=== PATIENT | male | born 1970 | race Caucasian/White ===

== ENCOUNTER 2021-09-06 13:43 | Inpatient (IN) | payer MEDICAID, SELFPAY ==
--- NOTE | ~2021-09-06 | US_ITS ---
EXAMINATION: US VENOUS ULTRASOUND WITH DOPPLER LOWER EXTREMITY, RIGHT CLINICAL INFORMATION: Swelling COMPARISON: None TECHNIQUE: Ultrasound of the deep veins is performed from the hip to the calf with compression sonography and color and pulse Doppler assessment. Spectral analysis with color-flow imaging is performed. FINDINGS: There is normal venous compression and respiratory variation and augmented flow. The visualized common femoral vein, superficial femoral vein, profunda femoral vein, popliteal vein, and the trifurcation region shows no evidence of deep venous thrombosis. There is no significant popliteal fossa cyst. Pathologically enlarged lymph node versus lesion in the right proximal thigh. Measures 2.4 x 1.5 x 5.5 cm. If the patient's symptoms persist, followup ultrasound in 5 days 7 days might be of value to exclude proximal propagation from a non-visualized calf vein. US/US venous duplex LE RT IMPRESSION: No DVT demonstrated in the right lower extremity. Note is made of a probable pathologically enlarged lymph node in the proximal right thigh. This could be reactive but malignancy cannot be excluded.
--- NOTE | ~2021-09-06 | XR_ITS ---
EXAMINATION: XR FOOT, RIGHT CLINICAL INFORMATION: Pain no injury COMPARISON: None TECHNIQUE: AP, lateral, and oblique views of the right foot. FINDINGS: Calcification within soft tissue along the fifth digit. The underlying bone shows bony destruction of the distal fifth metatarsal toward the medial aspect and there is also a fracture of the proximal aspect of the proximal phalanx fifth digit with ill-definition of the bone here as well. XR/XR foot RT 2V IMPRESSION: Bony destruction as described involving the distal fifth metatarsal and fracture with likely associated bony destruction involving the mid to proximal aspect of the proximal phalanx adjacent to the metatarsal.. Findings highly suggestive of osteomyelitis. Correlation recommended clinically.
--- NOTE | ~2021-09-06 | US_ITS ---
EXAMINATION: COLOR-FLOW DUPLEX IMAGING OF THE BILATERAL LOWER EXTREMITY ARTERIAL SYSTEM. VELOCITY MEASUREMENTS THROUGHOUT THE FEMORAL ARTERIES. CLINICAL INFORMATION: This patient is a 51-year-old man with lower extremity pain and a clinical question of peripheral vascular disease. RIGHT FEMORAL RUNOFF VELOCITIES: The right common femoral artery peak systolic velocity is 135 cm/s. The waveform is triphasic. The right proximal profunda femoral artery peak systolic velocity is 148 cm/s. The waveform is triphasic. The right proximal superficial femoral artery peak systolic velocity is 168 cm/s. The waveform is triphasic. The right mid superficial femoral artery peak systolic velocity is 164 cm/s. The waveform is monophasic. The right distal superficial femoral artery peak systolic velocity is 169 cm/s. The waveform is monophasic. The right popliteal artery peak systolic velocity is 219 cm/s. The waveform is monophasic. The right posterior tibial artery peak systolic velocity is 254 cm/s. The waveform is monophasic. Color Doppler imaging shows occlusion of the mid right peroneal artery. LEFT FEMORAL RUNOFF VELOCITIES: The left common femoral artery peak systolic velocity is 173 cm/s. The waveform is triphasic. The left proximal profunda femoral artery peak systolic velocity is 199 cm/s. The waveform is biphasic. The left proximal superficial femoral artery peak systolic velocity is 161 cm/s. The waveform is triphasic. The left mid superficial femoral artery peak systolic velocity is 113 cm/s. The waveform is triphasic. The left distal superficial femoral artery peak systolic velocity is 96 cm/s. The waveform is triphasic. The left popliteal artery peak systolic velocity is 109 cm/s. The waveform is triphasic. The left posterior tibial artery velocity peak systolic velocity is 190 cm/s. The waveform is monophasic. US/US arterial duplex LE BI IMPRESSION: There is hemodynamically significant right lower extremity inflow and outflow disease and left lower extremity outflow disease. This could be more fully evaluated with CTA or MRA, if clinically indicated. EXAMINATION: NONINVASIVE ANKLE BRACHIAL INDICES OF BOTH LOWER EXTREMITIES CLINICAL INFORMATION: As above. COMPARISON: None. TECHNIQUE: Ankle-brachial indices were calculated bilaterally. This study was performed at rest only. FINDINGS AT REST: The ankle-brachial indices are: Right 0.96 and left 0.95. >0.97-1.25 = normal - no significant arterial disease. 0.75-0.96 = mild peripheral arterial disease. 0.5-0.74 = moderate peripheral arterial disease. <0.50 = severe peripheral arterial disease. IMPRESSION: Bilateral ankle to brachial indices are consistent with mild peripheral arterial disease.
[2021-09-06 14:25] VITALS: BP 164/91; PULSE 82; RESP 16; TEMP 36.5; O2SAT 99; BMI 32.3
--- NOTE | 2021-09-06 15:08 | ECG_ITS ---
Test Reason : FEVER Blood Pressure : / mmHG Vent. Rate : 076 BPM Atrial Rate : 076 BPM P-R Int : 144 ms QRS Dur : 080 ms QT Int : 390 ms P-R-T Axes : 056 056 017 degrees QTc Int : 438 ms Normal sinus rhythm Normal ECG No previous ECGs available Referred By: Sarah Grubbs Electronically Signed By:LEIF ALCANTAR MD
--- NOTE | 2021-09-06 15:12 | ED_ITS ---
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 He was then discharged with remaining course of antibiotics but states that he has continued to have pain but denies fevers, chills and states t hat his lower leg has become more red and swollen and he has not completed the oral antibiotics at this time. Related Data Allergies Allergy/AdvReac Type Severity Reaction Status Date / Time No Known Allergies Allergy Verified 09/06/21 14:24 Review of Systems Review of Systems: Pertinent positives and negatives as stated in HPI 10 point review of systems is otherwise negative. PMFSH Past Medical History Source: nursing notes reviewed Social History Social History Advance Directives: No Advance Directives Information Provided: No Physical Exam Vital Signs: Vital Signs: Last Vital Signs Temp 97.7 F 09/06/21 14:25 Pulse 82 09/06/21 14:25 Resp 16 09/06/21 14:25 BP 164/91 H 09/06/21 14:25 Pulse Ox 99 09/06/21 14:25 O2 Del Method 09/06/21 14:25 BMI result Body Mass Index 31.9 VITAL SIGNS: Reviewed. GENERAL: Well developed, well nourished, in no acute distress. HEAD: Normocephalic/atraumatic EYES: PERRLA, EOMI EARS: Ext canals without abnormality OROPHARYNX: no oral lesions noted, posterior pharynx clear LUNGS: Normal breath sounds. No adventitious sounds or accessory muscle use. SpO2<99> CARDIOVASCULAR: Regular rate and rhythm without noted murmurs ABDOMEN: Soft, non-tender, non-distended with bowel sounds. MUSCULOSKELETAL: No tenderness, deformities, or effusions noted on gross inspection. EXTREMITIES: No cyanosis, clubbing or edema; RIGHT LOWER EXTREMITY: The lateral aspect of the 5th MTP is completely open and is actively draining brown purulence drainage and the foot is noted to be swollen with increase redness extending proximally up to the mid calf.. SKIN: Inspection of the skin reveals no rashes NEUROLOGIC: Alert and oriented x 4. Strength and sensation to light touch were grossly intact x 4. Course Course Course Narrative: 51-year-old male with history and clinical presentation most consistent with osteomyelitis, active purulence drainage at this time and lower clinical suspicion for right lower extremity DVT but will proceed with venous duplex he otherwise has no complaints of shortness of breath/chest pain. Patient will get an x-ray as well as receive IV antibiotics. Review of all investigations shows a CRP-3.11, patient to receive subQ insulin/antibiotics/IV fluids. Signed out to Dr Teresita Jimenez f/[place] RLE venous duplex, UA, rpt glucose after insulin, hospitalist won't admit until these are complete MDM - Extremity (Nontraumatic) Lab Data Result diagrams: 09/06/21 15:36 09/06/21 15:36 Labs: Lab Results 09/06/21 09/06/21 09/06/21 Range/Units 15:26 15:28 15:36 WBC 9.7 (4.8-10.8) X10*3/uL RBC 5.03 (4.60-5.80) X10*6/uL Hgb 12.7 L (14.0-18.0) g/dl Hct 39.3 L (42.0-52.0) % MCV 78.1 L (80.0-98.0) fL MCH 25.2 L (27.0-33.0) pg MCHC 32.3 (31.0-36.0) g/dl RDW 13.8 (11.0-16.0) % Plt Count 170 (160-400) X10*3/uL MPV 11.9 (9.4-12.4) fL Immature Gran % (Auto) 0.4 (0.0-0.4) % Neut % (Auto) 75.8 H (45-73) % Lymph % (Auto) 15.7 L (20-40) % [place] % (Auto) 6.8 (2-11) % Eos % (Auto) 1.1 (0-4) % Baso % (Auto) 0.2 (0-2) % Lymph # (Auto) 1.5 (1.2-4.9) X10*3/uL [place] # (Auto) 0.7 (0.1-1.2) X10*3/uL Eos # (Auto) 0.1 (0.0-0.4) X10*3/uL Baso # (Auto) 0.0 (0.0-0.2) X10*3/uL Abs Immat Gran (auto) 0.04 H (0.00-0.03) X10*3/uL Absolute Neuts (auto) 7.4 (2.0-8.3) x10*3/uL Absolute Nucleated RBC 0.000 (0.0-0.012) X10*3/uL Nucleated RBC % (auto) 0.0 (0.0-0.2) /100WBC Sodium (135-145) mmol/L Potassium (3.3-5.1) mmol/L Chloride (96-108) mmol/L Carbon Dioxide (22-29) mmol/L Anion Gap (12-20) BUN (9-16) mg/dL Creatinine (0.5-1.4) mg/dL Estim Creat Clear Calc Estimated GFR POC Glucose 437 H* (60-115) mg/dL Random Glucose (60-115) mg/dL Lactic Acid (0.5-2.0) mmol/L Calcium (8.4-10.2) mg/dL Total Bilirubin (0.0-1.0) mg/dL AST (5-37) U/L ALT (0-40) U/L Alkaline Phosphatase (39-117) U/L C-Reactive Protein (< or = 0.50) mg/dL Total Protein (6.5-8.0) g/dL Albumin (3.5-5.0) g/dL COVID-19 (STACI) Negative (Negative) COVID-19 Clin Com See Note 09/06/21 09/06/21 Range/Units 15:36 15:36 WBC (4.8-10.8) X10*3/uL RBC (4.60-5.80) X10*6/uL Hgb (14.0-18.0) g/dl Hct (42.0-52.0) % MCV (80.0-98.0) fL MCH (27.0-33.0) pg MCHC (31.0-36.0) g/dl RDW (11.0-16.0) % Plt Count (160-400) X10*3/uL MPV (9.4-12.4) fL Immature Gran % (Auto) (0.0-0.4) % Neut % (Auto) (45-73) % Lymph % (Auto) (20-40) % [place] % (Auto) (2-11) % Eos % (Auto) (0-4) % Baso % (Auto) (0-2) % Lymph # (Auto) (1.2-4.9) X10*3/uL [place] # (Auto) (0.1-1.2) X10*3/uL Eos # (Auto) (0.0-0.4) X10*3/uL Baso # (Auto) (0.0-0.2) X10*3/uL Abs Immat Gran (auto) (0.00-0.03) X10*3/uL Absolute Neuts (auto) (2.0-8.3) x10*3/uL Absolute Nucleated RBC (0.0-0.012) X10*3/uL Nucleated RBC % (auto) (0.0-0.2) /100WBC Sodium 134 L (135-145) mmol/L Potassium 4.7 (3.3-5.1) mmol/L Chloride 101 (96-108) mmol/L Carbon Dioxide 24 (22-29) mmol/L Anion Gap 14 (12-20) BUN 20 H (9-16) mg/dL Creatinine 1.49 H (0.5-1.4) mg/dL Estim Creat Clear Calc 70.6 Estimated GFR 50 POC Glucose (60-115) mg/dL Random Glucose 558 H* (60-115) mg/dL Lactic Acid 1.8 (0.5-2.0) mmol/L Calcium 8.8 (8.4-10.2) mg/dL Total Bilirubin 0.3 (0.0-1.0) mg/dL AST 27 (5-37) U/L ALT 61 H (0-40) U/L Alkaline Phosphatase 120 H (39-117) U/L C-Reactive Protein 3.11 H (< or = 0.50) mg/dL Total Protein 7.7 (6.5-8.0) g/dL Albumin 3.7 (3.5-5.0) g/dL COVID-19 (STACI) (Negative) COVID-19 Clin Com ECG Data Attestation EKG: I personally reviewed and interpreted this ECG as follows: Prior ECG tracings: not available for review Interpretation: Normal sinus rhythm, HR-76, no STEMI, LA/QRS/QTC is within normal limits. Critical Care Time Critical Care Time Critical Care Time: Yes Total Critical Care Time: 30 Attestation: I personally attest to this time spent taking care of the patient. Discharge Plan Discharge Clinical Impression: Osteomyelitis, Cellulitis of right lower extremity, Diabetes, OBEY (acute kidney injury) Patient Disposition: Admitted As Inpatient
[2021-09-06 15:21] VITALS: BMI 31.9
[2021-09-06 15:32] LABS: Glucose, Whole Blood 437 mg/dL (60-115)
[2021-09-06 15:46] LABS: MANUAL DIFF FLAG NO
[2021-09-06 15:49] LABS: Basophils Percent Auto 0.2 % (0-2); Eosinophils Absolute Auto 0.1 X10*3/uL (0.0-0.4); Eosinophils Percent Auto 1.1 % (0-4); Hematocrit 39.3 % (42.0-52.0); Hemoglobin 12.7 g/dl (14.0-18.0); Imm Gran Abs Auto 0.04 X10*3/uL (0.00-0.03); Imm Gran Pct Auto 0.4 % (0.0-0.4); Lymphocytes Absolute Auto 1.5 X10*3/uL (1.2-4.9); Lymphocytes Percent Auto 15.7 % (20-40); Mean Corpuscular HGB Conc 32.3 g/dl (31.0-36.0); Mean Corpuscular Hemoglobin 25.2 pg (27.0-33.0); Mean Corpuscular Volume 78.1 fL (80.0-98.0); Mean Platelet Volume 11.9 fL (9.4-12.4); Monocytes Absolute Auto 0.7 X10*3/uL (0.1-1.2); Monocytes Percent Auto 6.8 % (2-11); Neutrophils Absolute Auto 7.4 x10*3/uL (2.0-8.3); Neutrophils Percent Auto 75.8 % (45-73); Platelet Count 170 X10*3/uL (160-400); Red Blood Count 5.03 X10*6/uL (4.60-5.80); Red Cell Distribution Width 13.8 % (11.0-16.0); White Blood Count 9.7 X10*3/uL (4.8-10.8)
[2021-09-06] MEDS: Acetaminophen 325 MG TABLET 975 MG PO (15:52)
[2021-09-06] MEDS: Ketorolac Tromethamine 30 MG/ML VIAL 15 MG IVPUSH (15:53)
[2021-09-06] MEDS: Piperacillin Sodium/Tazobactam 3.375 GM in 0.9 % Sodium Chloride 50 ML IV ×2 (15:55→21:28)
[2021-09-06 15:59] LABS: Lactic Acid 1.8 mmol/L (0.5-2.0)
[2021-09-06 16:09] LABS: Alanine Aminotransferase 61 U/L (0-40); Albumin Level 3.7 g/dL (3.5-5.0); Alkaline Phosphatase 120 U/L (39-117); Anion Gap 14 (12-20); Aspartate Amino Transferase 27 U/L (5-37); Bilirubin Total 0.3 mg/dL (0.0-1.0); Blood Urea Nitrogen 20 mg/dL (9-16); Calcium 8.8 mg/dL (8.4-10.2); Carbon Dioxide 24 mmol/L (22-29); Chloride 101 mmol/L (96-108); Creatinine Clr Calc Pharmacy 70.6; Estimated Glomerular Filt Rate 50; Glucose Random 558 mg/dL (60-115); Potassium 4.7 mmol/L (3.3-5.1); Sodium 134 mmol/L (135-145); Total Protein 7.7 g/dL (6.5-8.0)
[2021-09-06 16:17] LABS: COVID-19 Test Negative (Negative)
--- NOTE | 2021-09-06 16:17 | PC.NURSE ---
critical lab of poc of 558 reported for KRISSY Mora,
[2021-09-06] MEDS: Insulin Lispro 100 UNIT/ML 3 ML VIAL 10 UNIT SUBCUT (16:29)
[2021-09-06 16:31] LABS: C Reactive Protein 3.11 mg/dL (< or = 0.50)
[2021-09-06] MEDS: 0.9 % Sodium Chloride 1,000 ML 999 ML IV (16:33)
[2021-09-06 17:20] LABS: Appearance Urine CLEAR; Color Urine YELLOW; Glucose Urine UA >=1000 MG/DL (NEG); Leukocyte Esterase Urine NEG (NEG); Nitrite Urine NEG (NEG); UACC Culture Trigger NO; Urine Blood 1+ (NEG); Urine Ketones NEG (NEG); Urine Protein 1+ MG/DL (NEG-TRACE)
[2021-09-06 17:24] LABS: Glucose, Whole Blood 398 mg/dL (60-115)
[2021-09-06] MEDS: Insulin Regular, Human 100 UNIT/ML 3 ML VIAL 10 UNIT IVPUSH (17:35)
[2021-09-06 17:37] LABS: WBC Urine 0-2 /HPF (0-4)
--- NOTE | 2021-09-06 17:39 | PC.NURSE ---
patient sleeping, awakens easily to verbal stimuli. skin pwd, resp even and non labored. speaking in full, clear sentences. medicated w/ IV insulin per order for POC of 398. IV fluids and IV antibiotics continue to infuse. Hospitalist at bedside.
--- NOTE | 2021-09-06 17:55 | PM.IMHP ---
History of Present Illness Date of Service: 09/06/21 Chief Complaint: right le pain and swelling fifth toe 51M presented with RLE pain and swelling. Patient history of diabetes, hypertension, obesity, smoking presented with right lower extremity pain and swelling. Patient has recent history of right 5th toe fracture complicated by osteomyelitis, received about 3 weeks IV antibiotics and [place] followed by oral antibiotics for about 1 week, then patient flew to [place]. Patient now complaining of right lower extremity swelling and pain and worsening drainage at wound site. He denies any fevers or chills or chest pain or shortness of breath. Review of Systems Review of Systems: Constitutional: Denies fever, denies Chills Eyes: denies blurry vision ENT: denies sore throat CVS: denies chest pain Respiratory: Denies dyspnea GI: no abdominal pain : denies dysuria MSK: denies neck pain Skin: see hpi Neuro: denies specific motor weakness Psych: denies suicidal ideation Endocrine: denies heat/cold intolerance Hematologic: denies easy bleeding Allergy: denies hives [facility] Medical History Diabetes HCV (hepatitis C virus) Hypertension Schizoaffective disorder Family History Father Diabetes mellitus Social History Alcohol intake: never Patient Tobacco Use Status: Current everyday Tobacco user Use of substances other than those prescribed or required for medical reasons: No Advance Directives: No Advance Directives Information Provided: No Meds Allergies Allergy/AdvReac Type Severity Reaction Status Date / Time No Known Allergies Allergy Verified 09/06/21 14:24 Active Medications: Current Medications Acetaminophen (Acetaminophen 325 Mg Tablet) 650 mg PO Q6H PRN PRN Reason: Pain, Mild (Pain Scale 1-3) Dextrose (Dextrose 50 % 25 Gm/50 Ml Syringe) 25 gm IVPUSH Q15M PRN; Protocol PRN Reason: per Hypoglycemia Standing Ord. Glucose (Glucose Gel 15 Gm Gel..Gram.) 15 gm PO Q15M PRN; Protocol PRN Reason: per Hypoglycemia Standing Ord. Heparin Sodium (Porcine) (Heparin Sodium,Porcine 5,000 Unit/Ml Vial) 5,000 unit SUBCUT Q8H SANTI Vancomycin HCl 1,000 mg/ (Sodium Chloride) 270 mls @ 270 mls/hr IV Q12H [facility] Piperacillin Sod/Tazobactam (Sod 3.375 gm/ Sodium Chloride) 50 mls @ 100 mls/hr IV Q6H [facility] Insulin Glargine (Insulin Glargine,Hum.Rec.Anlog 100 Unit/Ml 10 Ml Vial) 15 unit SUBCUT BEDTIME [facility] Insulin Human Lispro (Insulin Lispro 100 Unit/Ml 3 Ml Vial) 0 unit SUBCUT QIDACHS SANTI; Protocol Pharmacy Consult (Consult Rx Vancomycin Dosing) 1 each MISCELLANE DAILY PRN PRN Reason: Consult order Pharmacy Consult (Consult Rx Perform Med Rec) 1 each MISCELLANE ONCE PRN PRN Reason: Consult order Pharmacy Consult (Consult Rx Vancomycin Dosing) 1 each MISCELLANE DAILY PRN PRN Reason: Consult order Sodium Chloride (0.9 % Sodium Chloride Flush 3 Ml Syringe) 3 ml IVFLUSH QSHIFT [facility] Physical Exam Vital Signs and Narrative: Vital Signs: Last Vital Signs Temp 97.7 F 09/06/21 14:25 Pulse 82 09/06/21 14:25 Resp 16 09/06/21 14:25 BP 164/91 H 09/06/21 14:25 Pulse Ox 99 09/06/21 14:25 O2 Del Method 09/06/21 14:25 BMI result Body Mass Index 31.9 General: no acute distress HEENT: atraumatic Neck: normal to visual inspection CVS: S1, S2, RRR Resp: CTA bilateral Chest: non tender GI: soft, non tender, non distended : no CVA tenderness Skin: right fifth toe DFU Extremities: RLE edema, tender Neuro: Oriented X3, grossly intact Psych: cooperative Results Labs CBC and Chem 7: 09/06/21 15:36 09/06/21 15:36 Labs: Laboratory Results - last 24 hr 09/06/21 09/06/21 09/06/21 15:26 15:28 15:36 MCV 78.1 L MCH 25.2 L MCHC 32.3 RDW 13.8 Plt Count 170 MPV 11.9 Immature Gran % (Auto) 0.4 Neut % (Auto) 75.8 H Lymph % (Auto) 15.7 L [place] % (Auto) 6.8 Eos % (Auto) 1.1 Baso % (Auto) 0.2 Lymph # (Auto) 1.5 [place] # (Auto) 0.7 Eos # (Auto) 0.1 Baso # (Auto) 0.0 Abs Immat Gran (auto) 0.04 H Absolute Neuts (auto) 7.4 Absolute Nucleated RBC 0.000 Nucleated RBC % (auto) 0.0 Anion Gap Estim Creat Clear Calc Estimated GFR POC Glucose 437 H* Random Glucose Lactic Acid Calcium Total Bilirubin AST ALT Alkaline Phosphatase C-Reactive Protein Total Protein Albumin Urine Color Urine Appearance Urine pH Ur Specific [place] Urine Protein Urine Glucose (UA) Urine Ketones Urine Blood Urine Nitrite Ur Leukocyte Esterase Urine RBC Urine WBC Ur Squamous Epith Cells Urine Bacteria COVID-19 (STACI) Negative COVID-19 Clin Com See Note 09/06/21 09/06/21 09/06/21 15:36 15:36 17:02 MCV MCH MCHC RDW Plt Count MPV Immature Gran % (Auto) Neut % (Auto) Lymph % (Auto) [place] % (Auto) Eos % (Auto) Baso % (Auto) Lymph # (Auto) [place] # (Auto) Eos # (Auto) Baso # (Auto) Abs Immat Gran (auto) Absolute Neuts (auto) Absolute Nucleated RBC Nucleated RBC % (auto) Anion Gap 14 Estim Creat Clear Calc 70.6 Estimated GFR 50 POC Glucose Random Glucose 558 H* Lactic Acid 1.8 Calcium 8.8 Total Bilirubin 0.3 AST 27 ALT 61 H Alkaline Phosphatase 120 H C-Reactive Protein 3.11 H Total Protein 7.7 Albumin 3.7 Urine Color YELLOW Urine Appearance CLEAR Urine pH 7.0 Ur Specific [place] 1.010 Urine Protein 1+ H Urine Glucose (UA) >=1000 H Urine Ketones NEG Urine Blood 1+ H Urine Nitrite NEG Ur Leukocyte Esterase NEG Urine RBC 1-4 Urine WBC 0-2 Ur Squamous Epith Cells NONE Urine Bacteria NONE COVID-19 (STACI) COVID-19 Clin Com 09/06/21 17:19 MCV MCH MCHC RDW Plt Count MPV Immature Gran % (Auto) Neut % (Auto) Lymph % (Auto) [place] % (Auto) Eos % (Auto) Baso % (Auto) Lymph # (Auto) [place] # (Auto) Eos # (Auto) Baso # (Auto) Abs Immat Gran (auto) Absolute Neuts (auto) Absolute Nucleated RBC Nucleated RBC % (auto) Anion Gap Estim Creat Clear Calc Estimated GFR POC Glucose 398 H* Random Glucose Lactic Acid Calcium Total Bilirubin AST ALT Alkaline Phosphatase C-Reactive Protein Total Protein Albumin Urine Color Urine Appearance Urine pH Ur Specific [place] Urine Protein Urine Glucose (UA) Urine Ketones Urine Blood Urine Nitrite Ur Leukocyte Esterase Urine RBC Urine WBC Ur Squamous Epith Cells Urine Bacteria COVID-19 (STACI) COVID-19 Clin Com Imaging Radiologist's Impressions: Impressions Foot X-Ray 09/06/21 15:53 IMPRESSION: Bony destruction as described involving the distal fifth metatarsal and fracture with likely associated bony destruction involving the mid to proximal aspect of the proximal phalanx adjacent to the metatarsal.. Findings highly suggestive of osteomyelitis. Correlation recommended clinically. Venous Duplex 09/06/21 16:29 IMPRESSION: No DVT demonstrated in the right lower extremity. Note is made of a probable pathologically enlarged lymph node in the proximal right thigh. This could be reactive but malignancy cannot be excluded. Assessment and Plan (1) Osteomyelitis: Status: Acute Plan 51M presented with nonhealing DFU Right lower extremity diabetic foot ulcer/osteomyelitis Duplex negative for DVT Continue vancomycin and Zosyn Follow-up cultures Vascular eval Arterial duplex Diabetes with hyperglycemia Basal bolus insulin, monitor glucose Hypertension, schizoaffective disorder Awaiting med reconciliation History of hepatitis C Patient reports treatment in [place] Elevated creatinine CKD III versus OBEY, unknown baseline Monitor BMP Obesity Weight loss recommended DVT prophylaxis with heparin subQ Full code Patient with significant infection, failing outpatient antibiotics, high risk due to diabetes, therefore likely require at least 2 minutes multiple Quality Stroke Does the patient have a stroke diagnosis?: No VTE Prior VTE?: No VTE Risk Level:: Medical - moderate - high VTE Device Contraindication: Treatment Not Indicated VTE Drug Contraindication: N/A - Med Ordered
--- NOTE | 2021-09-06 18:11 | PHA.MEDREC ---
med rec complete, patient has just arrived from [place] last night, per patient via motor vehicle parts interpreter he takes something for blood pressure and insulin. Upon talking to his brother we think the insulin is Humulin 70/30 and blood pressure med may be enalapril. Patient was previously admitted in in 2017, he had a list of medications upon discharge which are entered on his home med list. It is unclear if he continued these meds in [place]. Pharmacy Consult ? Medication Reconciliation Pharmacy has completed the medication reconciliation.
--- NOTE | 2021-09-06 18:15 | PC.NURSE ---
patient to ultrasound at this time
--- NOTE | 2021-09-06 19:33 | PHA.PROG ---
Admission Date/Time: September 06, 2021 17:52 Indication: OSTEO Weight in k.05 kg Adjusted body weight in K.2 KG [place] body weight in K KG Obesity Dosing Indication % IBW: Serum Creatinine - Last 168 Hours 09/06/21 15:36 Creatinine 1.49 H Estimated CrCl and GFR - Last 168 Hours 09/06/21 15:36 Estim Creat Clear Calc 70.6 Estimated GFR 50 Vancomycin Loading Dose: 2000 MG X 1 Current Vancomycin Dosing Regimen: 1000 MG Q12H Vancomycin Monitoring using AUC goal of 400 - 600 range with trough as surrogate marker: PREDICTED AUC 570 Date and Time for next Vancomycin Level to be drawn: RANDOM LEVEL BEFORE 3RD DOSE 09/07/21 @1500 Pharmacist Comments on Vancomycin Plan: TOGGLED BETWEEN OBESE AND GENERAL MODEL . WILL GET LEVEL BEFORE 3RD DOSE. CONTINUE TO MONITOR RENAL FXN...UNKNOWN IF PATIENT IS IN OBEY OR HAS CKD. Vancomycin dosing will take advantage of [employer] as a clinical decision support tool that uses Bayesian modeling to calculate individual patient's pharmacokinetic parameters and forecast the patient's drug concentration time course with the target goal AUC 24 range of 400 - 600 mg/L/hr.
[2021-09-06 19:40] LABS: Glucose, Whole Blood 191 mg/dL (60-115)
[2021-09-06 19:53] VITALS: BP 169/97; PULSE 72; RESP 16; TEMP 36.6; O2SAT 100
[2021-09-06] MEDS: OXcarbazepine 300 MG TABLET PO (21:28)
[2021-09-06] MEDS: cloNIDine HCL 0.1 MG TABLET PO (21:28)
[2021-09-06] MEDS: Heparin Sodium,Porcine 5,000 UNIT/ML VIAL 5000 UNIT SUBCUT (21:28)
[2021-09-06] MEDS: Insulin Glargine,Hum.rec.anlog 100 UNIT/ML 10 ML VIAL 15 UNIT SUBCUT (21:28)
[2021-09-06] MEDS: risperiDONE 2 MG TABLET PO (21:28)
[2021-09-06 21:32] LABS: Glucose, Whole Blood 300 mg/dL (60-115)
[2021-09-06] MEDS: Insulin Lispro 100 UNIT/ML 3 ML VIAL SUBCUT (21:33)
[2021-09-06 23:58] VITALS: BP 138/75; PULSE 82; RESP 16; O2SAT 98
[2021-09-06] MEDS: 0.9 % Sodium Chloride Flush 3 ML SYRINGE IVFLUSH (23:58)
[2021-09-07] MEDS: Piperacillin Sodium/Tazobactam 3.375 GM in 0.9 % Sodium Chloride 50 ML IV ×4 (04:18→20:31)
[2021-09-07] MEDS: vancomycin HCL 1,000 MG in 0.9 % Sodium Chloride 250 ML 270 MG IV (04:51)
[2021-09-07 06:49] LABS: Hematocrit 35.8 % (42.0-52.0); Hemoglobin 11.6 g/dl (14.0-18.0); Mean Corpuscular HGB Conc 32.4 g/dl (31.0-36.0); Mean Corpuscular Hemoglobin 25.3 pg (27.0-33.0); Mean Corpuscular Volume 78.2 fL (80.0-98.0); Platelet Count 153 X10*3/uL (160-400); Red Blood Count 4.58 X10*6/uL (4.60-5.80); Red Cell Distribution Width 13.6 % (11.0-16.0); White Blood Count 8.4 X10*3/uL (4.8-10.8)
[2021-09-07 07:07] LABS: Anion Gap 10 (12-20); Blood Urea Nitrogen 21 mg/dL (9-16); Calcium 8.3 mg/dL (8.4-10.2); Carbon Dioxide 24 mmol/L (22-29); Chloride 107 mmol/L (96-108); Creatinine Clr Calc Pharmacy 87.7; Estimated Glomerular Filt Rate > 60; Glucose Fasting 301 mg/dL (60-99); Potassium 4.5 mmol/L (3.3-5.1); Sodium 136 mmol/L (135-145)
[2021-09-07 07:20] LABS: Glucose, Whole Blood 251 mg/dL (60-115)
--- NOTE | 2021-09-07 07:32 | HE.PHANOTE ---
Vancomycin Dosing Addendum Patients renal function has slightly improved. Dose is currently at 1000mg Q12 with a predicted AUC of 603 mg/L/hr. Patient has a random level draw 09/07/21 @1500, next dose is not due till 1700. Will wait for random level then reassess.
[2021-09-07] MEDS: Insulin Lispro 100 UNIT/ML 3 ML VIAL SUBCUT ×5 (07:33→19:50)
[2021-09-07] MEDS: Heparin Sodium,Porcine 5,000 UNIT/ML VIAL 5000 UNIT SUBCUT ×3 (07:34→20:30)
[2021-09-07] MEDS: 0.9 % Sodium Chloride Flush 3 ML SYRINGE IVFLUSH ×3 (07:36→20:31)
[2021-09-07 07:41] VITALS: BP 152/84; PULSE 76; RESP 18; TEMP 36.6; O2SAT 98
[2021-09-07] MEDS: risperiDONE 2 MG TABLET PO ×2 (09:31→20:31)
[2021-09-07] MEDS: cloNIDine HCL 0.1 MG TABLET PO ×2 (09:31→20:31)
[2021-09-07] MEDS: lisinopriL 10 MG TABLET PO (09:33)
[2021-09-07] MEDS: Acetaminophen 325 MG TABLET 650 MG PO ×2 (09:38→19:50)
--- NOTE | 2021-09-07 10:52 | PC.NURSE ---
report given to overflow rn
--- NOTE | 2021-09-07 10:54 | HO.PM.IMPN ---
Subjective Subjective Date of Service: 09/07/21 Interval History: cc: rle pain and swelling interval history: unchanged Cardiovascular Cardiovascular: Reports no additional cardiovascular complaints Respiratory Respiratory: Reports no additional respiratory complaints Physical Exam Vital Signs: Vital Signs: Last Vital Signs Temp 97.8 F 09/07/21 07:41 Pulse 76 09/07/21 07:41 Resp 18 09/07/21 07:41 BP 152/84 H 09/07/21 07:41 Pulse Ox 98 09/07/21 07:41 O2 Del Method 09/07/21 07:41 BMI result Body Mass Index 31.9 General: AO X 3, no acute distress Resp: CTA bilateral, no accessory muscles used CVS: S1,S2,RRR GI: soft, non tender, non distended Neuro: motor grossly intact, alert Psych: appropriate affect, appropriate insight rle edema, ulcer Objective Data Active Medications Acetaminophen (Acetaminophen 325 Mg Tablet) 650 mg PO Q6H PRN PRN Reason: Pain, Mild (Pain Scale 1-3) Last Admin: 09/07/21 09:38 Dose: 650 mg Documented By: REID Clonidine HCl (Clonidine Hcl 0.1 Mg Tablet) 0.1 mg PO BID [facility]; Protocol Last Admin: 09/07/21 09:31 Dose: 0.1 mg Documented By: REID Dextrose (Dextrose 50 % 25 Gm/50 Ml Syringe) 25 gm IVPUSH Q15M PRN; Protocol PRN Reason: per Hypoglycemia Standing Ord. Glucose (Glucose Gel 15 Gm Gel..Gram.) 15 gm PO Q15M PRN; Protocol PRN Reason: per Hypoglycemia Standing Ord. Heparin Sodium (Porcine) (Heparin Sodium,Porcine 5,000 Unit/Ml Vial) 5,000 unit SUBCUT Q8H [facility] Last Admin: 09/07/21 07:34 Dose: 5,000 unit Documented By: REID Vancomycin HCl 1,000 mg/ (Sodium Chloride) 270 mls @ 270 mls/hr IV Q12H [facility] Last Infusion: 09/07/21 07:36 Dose: 0 mls/hr Documented By: REID Piperacillin Sod/Tazobactam (Sod 3.375 gm/ Sodium Chloride) 50 mls @ 100 mls/hr IV Q6H [facility] Last Infusion: 09/07/21 10:42 Dose: 0 mls/hr Documented By: REID Insulin Glargine (Insulin Glargine,Hum.Rec.Anlog 100 Unit/Ml 10 Ml Vial) 20 unit SUBCUT BID [facility] Insulin Human Lispro (Insulin Lispro 100 Unit/Ml 3 Ml Vial) 0 unit SUBCUT QIDACHS [facility]; Protocol Last Admin: 09/07/21 07:33 Dose: 6 unit Documented By: REID Lisinopril (Lisinopril 10 Mg Tablet) 10 mg PO DAILY [facility]; Protocol Last Admin: 09/07/21 09:33 Dose: 10 mg Documented By: REID Oxcarbazepine (Oxcarbazepine 300 Mg Tablet) 300 mg PO BEDTIME [facility] Last Admin: 09/06/21 21:28 Dose: 300 mg Documented By: HANNAH Pharmacy Consult (Consult Rx Vancomycin Dosing) 1 each MISCELLANE DAILY PRN PRN Reason: Consult order Pharmacy Consult (Consult Rx Perform Med Rec) 1 each MISCELLANE ONCE PRN PRN Reason: Consult order Pharmacy Consult (Consult Rx Vancomycin Dosing) 1 each MISCELLANE DAILY PRN PRN Reason: Consult order Risperidone (Risperidone 2 Mg Tablet) 2 mg PO BID [facility] Last Admin: 09/07/21 09:31 Dose: 2 mg Documented By: REID Sodium Chloride (0.9 % Sodium Chloride Flush 3 Ml Syringe) 3 ml IVFLUSH QSHIFT [facility] Last Admin: 09/07/21 07:36 Dose: 3 ml Documented By: REID Labs CBC & Chem 7: 09/07/21 06:07 09/07/21 06:07 Labs: Laboratory Results - last 24 hr 09/06/21 09/06/21 09/06/21 15:26 15:28 15:36 MCV 78.1 L MCH 25.2 L MCHC 32.3 RDW 13.8 Plt Count 170 MPV 11.9 Immature Gran % (Auto) 0.4 Neut % (Auto) 75.8 H Lymph % (Auto) 15.7 L [place] % (Auto) 6.8 Eos % (Auto) 1.1 Baso % (Auto) 0.2 Lymph # (Auto) 1.5 [place] # (Auto) 0.7 Eos # (Auto) 0.1 Baso # (Auto) 0.0 Abs Immat Gran (auto) 0.04 H Absolute Neuts (auto) 7.4 Absolute Nucleated RBC 0.000 Nucleated RBC % (auto) 0.0 Anion Gap Estim Creat Clear Calc Estimated GFR POC Glucose 437 H* Random Glucose Fasting Glucose Lactic Acid Calcium Total Bilirubin AST ALT Alkaline Phosphatase C-Reactive Protein Total Protein Albumin Urine Color Urine Appearance Urine pH Ur Specific [place] Urine Protein Urine Glucose (UA) Urine Ketones Urine Blood Urine Nitrite Ur Leukocyte Esterase Urine RBC Urine WBC Ur Squamous Epith Cells Urine Bacteria COVID-19 ([facility]) Negative COVID-19 Clin Com See Note 09/06/21 09/06/21 09/06/21 15:36 15:36 17:02 MCV MCH MCHC RDW Plt Count MPV Immature Gran % (Auto) Neut % (Auto) Lymph % (Auto) [place] % (Auto) Eos % (Auto) Baso % (Auto) Lymph # (Auto) [place] # (Auto) Eos # (Auto) Baso # (Auto) Abs Immat Gran (auto) Absolute Neuts (auto) Absolute Nucleated RBC Nucleated RBC % (auto) Anion Gap 14 Estim Creat Clear Calc 70.6 Estimated GFR 50 POC Glucose Random Glucose 558 H* Fasting Glucose Lactic Acid 1.8 Calcium 8.8 Total Bilirubin 0.3 AST 27 ALT 61 H Alkaline Phosphatase 120 H C-Reactive Protein 3.11 H Total Protein 7.7 Albumin 3.7 Urine Color YELLOW Urine Appearance CLEAR Urine pH 7.0 Ur Specific [place] 1.010 Urine Protein 1+ H Urine Glucose (UA) >=1000 H Urine Ketones NEG Urine Blood 1+ H Urine Nitrite NEG Ur Leukocyte Esterase NEG Urine RBC 1-4 Urine WBC 0-2 Ur Squamous Epith Cells NONE Urine Bacteria NONE COVID-19 ([facility]) COVID-19 Clin Com 09/06/21 09/06/21 09/06/21 17:19 19:36 21:28 MCV MCH MCHC RDW Plt Count MPV Immature Gran % (Auto) Neut % (Auto) Lymph % (Auto) [place] % (Auto) Eos % (Auto) Baso % (Auto) Lymph # (Auto) [place] # (Auto) Eos # (Auto) Baso # (Auto) Abs Immat Gran (auto) Absolute Neuts (auto) Absolute Nucleated RBC Nucleated RBC % (auto) Anion Gap Estim Creat Clear Calc Estimated GFR POC Glucose 398 H* 191 H 300 H Random Glucose Fasting Glucose Lactic Acid Calcium Total Bilirubin AST ALT Alkaline Phosphatase C-Reactive Protein Total Protein Albumin Urine Color Urine Appearance Urine pH Ur Specific [place] Urine Protein Urine Glucose (UA) Urine Ketones Urine Blood Urine Nitrite Ur Leukocyte Esterase Urine RBC Urine WBC Ur Squamous Epith Cells Urine Bacteria COVID-19 ([facility]) COVID-19 Clin Com 09/07/21 09/07/21 09/07/21 06:07 06:07 07:16 MCV 78.2 L MCH 25.3 L MCHC 32.4 RDW 13.6 Plt Count 153 L MPV 12.0 Immature Gran % (Auto) Neut % (Auto) Lymph % (Auto) [place] % (Auto) Eos % (Auto) Baso % (Auto) Lymph # (Auto) [place] # (Auto) Eos # (Auto) Baso # (Auto) Abs Immat Gran (auto) Absolute Neuts (auto) Absolute Nucleated RBC 0.000 Nucleated RBC % (auto) 0.0 Anion Gap 10 L Estim Creat Clear Calc 87.7 Estimated GFR > 60 POC Glucose 251 H Random Glucose Fasting Glucose 301 H Lactic Acid Calcium 8.3 L Total Bilirubin AST ALT Alkaline Phosphatase C-Reactive Protein Total Protein Albumin Urine Color Urine Appearance Urine pH Ur Specific [place] Urine Protein Urine Glucose (UA) Urine Ketones Urine Blood Urine Nitrite Ur Leukocyte Esterase Urine RBC Urine WBC Ur Squamous Epith Cells Urine Bacteria COVID-19 ([facility]) COVID-19 Clin Com Assessment and Plan (1) Osteomyelitis: Status: Acute Plan 51M presented with nonhealing DFU Right lower extremity diabetic foot ulcer/osteomyelitis Duplex negative for DVT Continue vancomycin and Zosyn Follow-up cultures Vascular eval Arterial duplex - mild disease Diabetes with hyperglycemia Basal (increased to 20 units bid) bolus insulin, monitor glucose Hypertension lisinopril schizoaffective disorder risperdal, clonidine History of hepatitis C Patient reports treatment in [place] Elevated creatinine CKD III versus OBEY, unknown baseline Monitor BMP Obesity Weight loss recommended DVT prophylaxis with heparin subQ Full code reason for continued hospitalization:iv abx for DFU, ogoing vascular work up Quality Stroke Does the patient have a stroke diagnosis?: No VTE Prior VTE?: No VTE Risk Level:: Medical - moderate - high VTE Device Contraindication: Treatment Not Indicated VTE Drug Contraindication: N/A - Med Ordered
--- NOTE | 2021-09-07 11:34 | PM.CNGS ---
History of Present Illness Consult details Consult date: 09/07/21 Narrative: Very pleasant 51-year-old gentleman presents for vascular evaluation regarding nonhealing right lower extremity toe. He reports that began nearly a month ago when he was in [place]. He fell off a horse and that is when the initial ulcer began. It has been red nonhealing since that time. Of note he has been a long-standing diabetic for over 7 years. In addition he smokes 1 pack a cigarettes every 3 days or so. He now presents for vascular evaluation. Please note conference interpreter was present at the time of my evaluation. Review of Systems Review of Systems: Yes all other systems are reviewed and are negative Constitutional: Constitutional: Reports no additional constitutional complaints ENT: Reports Normal hearing present Cardiovascular: Cardiovascular: Denies chest pain, Denies chest pain at rest, Denies chest pain with activity and Denies pedal edema Respiratory: Respiratory: Denies cough Gastrointestinal: Gastrointestinal: Denies abdominal pain Musculoskeletal: Musculoskeletal: Denies abnormal gait, Denies muscle cramps and Denies radiating pain into limb Integumentary/Breasts: Skin/Breast: Denies skin ulcer and Denies wounds Neurologic: Reports Normal hearing present and Denies abnormal gait Psychiatric: Psychiatric: Reports no additional psychiatric complaints PMFSH Past Medical History Medical History Diabetes HCV (hepatitis C virus) Hypertension Schizoaffective disorder Family History Family History Father Diabetes mellitus Social History Social History Alcohol intake: never Patient Tobacco Use Status: Former Tobacco user Smoked in Last 30 Days: No Use of substances other than those prescribed or required for medical reasons: No Advance Directives: No Advance Directives Information Provided: No Meds Allergies Allergy/AdvReac Type Severity Reaction Status Date / Time No Known Allergies Allergy Verified 09/06/21 14:24 Active Medications: Current Medications Acetaminophen (Acetaminophen 325 Mg Tablet) 650 mg PO Q6H PRN PRN Reason: Pain, Mild (Pain Scale 1-3) Last Admin: 09/07/21 09:38 Dose: 650 mg Clonidine HCl (Clonidine Hcl 0.1 Mg Tablet) 0.1 mg PO BID [facility]; Protocol Last Admin: 09/07/21 09:31 Dose: 0.1 mg Dextrose (Dextrose 50 % 25 Gm/50 Ml Syringe) 25 gm IVPUSH Q15M PRN; Protocol PRN Reason: per Hypoglycemia Standing Ord. Glucose (Glucose Gel 15 Gm Gel..Gram.) 15 gm PO Q15M PRN; Protocol PRN Reason: per Hypoglycemia Standing Ord. Heparin Sodium (Porcine) (Heparin Sodium,Porcine 5,000 Unit/Ml Vial) 5,000 unit SUBCUT Q8H [facility] Last Admin: 09/07/21 07:34 Dose: 5,000 unit Vancomycin HCl 1,000 mg/ (Sodium Chloride) 270 mls @ 270 mls/hr IV Q12H [facility] Last Infusion: 09/07/21 07:36 Dose: Infused Piperacillin Sod/Tazobactam (Sod 3.375 gm/ Sodium Chloride) 50 mls @ 100 mls/hr IV Q6H [facility] Last Infusion: 09/07/21 10:42 Dose: Infused Insulin Glargine (Insulin Glargine,Hum.Rec.Anlog 100 Unit/Ml 10 Ml Vial) 20 unit SUBCUT BID [facility] Insulin Human Lispro (Insulin Lispro 100 Unit/Ml 3 Ml Vial) 0 unit SUBCUT QIDACHS [facility]; Protocol Last Admin: 09/07/21 07:33 Dose: 6 unit Lisinopril (Lisinopril 10 Mg Tablet) 10 mg PO DAILY [facility]; Protocol Last Admin: 09/07/21 09:33 Dose: 10 mg Oxcarbazepine (Oxcarbazepine 300 Mg Tablet) 300 mg PO BEDTIME [facility] Last Admin: 09/06/21 21:28 Dose: 300 mg Pharmacy Consult (Consult Rx Vancomycin Dosing) 1 each MISCELLANE DAILY PRN PRN Reason: Consult order Pharmacy Consult (Consult Rx Perform Med Rec) 1 each MISCELLANE ONCE PRN PRN Reason: Consult order Pharmacy Consult (Consult Rx Vancomycin Dosing) 1 each MISCELLANE DAILY PRN PRN Reason: Consult order Risperidone (Risperidone 2 Mg Tablet) 2 mg PO BID [facility] Last Admin: 09/07/21 09:31 Dose: 2 mg Sodium Chloride (0.9 % Sodium Chloride Flush 3 Ml Syringe) 3 ml IVFLUSH QSHIFT [facility] Last Admin: 09/07/21 07:36 Dose: 3 ml Home Medications Medication Instructions Recorded Confirmed Last Taken Type clonidine HCl 0.1 mg tablet 0.1 mg PO BID 09/06/21 09/06/21 Unknown History insulin human U-100 NPH-regulr 45 unit subcut QAM 09/06/21 09/06/21 Unknown History 70-30 mix 100 unit/mL subcutaneous susp (Humulin 70/30 U-100 Insulin) insulin human U-100 NPH-regulr 50 unit subcut DAILY@1700 09/06/21 09/06/21 Unknown History 70-30 mix 100 unit/mL subcutaneous susp (Humulin 70/30 U-100 Insulin) lisinopril 10 mg tablet 10 mg PO DAILY 09/06/21 09/06/21 Unknown History oxcarbazepine 300 mg tablet 300 mg PO BEDTIME 09/06/21 09/06/21 Unknown History risperidone 2 mg tablet (Risperdal) 2 mg PO BID 09/06/21 09/06/21 Unknown History Physical Exam Vital Signs: Vital Signs: Last Vital Signs Temp 97.8 F 09/07/21 07:41 Pulse 76 09/07/21 07:41 Resp 18 09/07/21 07:41 BP 152/84 H 09/07/21 07:41 Pulse Ox 98 09/07/21 07:41 O2 Del Method 09/07/21 07:41 BMI result Body Mass Index 31.9 Const: General: cooperative, healthy appearing and comfortable Orientation/consciousness: oriented to person, oriented to place and oriented to time HEENT: Head: Yes normal to inspection Neck: Neck: Yes normal visual inspection Carotids: no bruits Chest: Chest palpation & inspection: normal inspection of the chest Resp: Effort & Inspection: normal respiratory effort and able to speak in complete sentences Auscultation: clear to auscultation bilaterally, no crackles, no rales, no rhonchi and no wheezes Cardio: Rate: regular rate Rhythm: regular rhythm Heart sounds: S1 normal heart sound present and S2 normal heart sound present Bruits: no carotid bruits Peripheral pulses: dorsalis pedis present (Bilateral DP signals) GI: Inspection: Yes normal to inspection Skin: Wounds: wounds noted (Right 5th toe lateral foot ulcer) Hair: normal Neuro: General: oriented to person, oriented to place and oriented to time Cranial nerves: Yes CN's II-XII intact bilaterally and Yes Normal hearing present Cognition (Neuro): normal cognition Motor exam (neuro): 5/5 motor strength present throughout Extrem: Other: venous exam: No significant superficial varicosities or spider telangiectasias, minimal edema General: No clubbing, No cyanosis and No edema Psych: Appearance: grossly normal Mental Status: mental status grossly normal Speech and movement: Normal speech and movement present Results Labs Result diagrams: 09/07/21 06:07 09/07/21 06:07 Labs: Abnormal lab results 09/06/21 09/06/21 09/06/21 Range/Units 15:26 15:36 15:36 RBC (4.60-5.80) X10*6/uL Hgb 12.7 L (14.0-18.0) g/dl Hct 39.3 L (42.0-52.0) % MCV 78.1 L (80.0-98.0) fL MCH 25.2 L (27.0-33.0) pg Plt Count (160-400) X10*3/uL Neut % (Auto) 75.8 H (45-73) % Lymph % (Auto) 15.7 L (20-40) % Abs Immat Gran (auto) 0.04 H (0.00-0.03) X10*3/uL Sodium 134 L (135-145) mmol/L Anion Gap (12-20) BUN 20 H (9-16) mg/dL Creatinine 1.49 H (0.5-1.4) mg/dL POC Glucose 437 H* (60-115) mg/dL Random Glucose 558 H* (60-115) mg/dL Fasting Glucose (60-99) mg/dL Calcium (8.4-10.2) mg/dL ALT 61 H (0-40) U/L Alkaline Phosphatase 120 H (39-117) U/L C-Reactive Protein 3.11 H (< or = 0.50) mg/dL Urine Protein (NEG-TRACE) MG/DL Urine Glucose (UA) (NEG) MG/DL Urine Blood (NEG) 09/06/21 09/06/21 09/06/21 Range/Units 17:02 17:19 19:36 RBC (4.60-5.80) X10*6/uL Hgb (14.0-18.0) g/dl Hct (42.0-52.0) % MCV (80.0-98.0) fL MCH (27.0-33.0) pg Plt Count (160-400) X10*3/uL Neut % (Auto) (45-73) % Lymph % (Auto) (20-40) % Abs Immat Gran (auto) (0.00-0.03) X10*3/uL Sodium (135-145) mmol/L Anion Gap (12-20) BUN (9-16) mg/dL Creatinine (0.5-1.4) mg/dL POC Glucose 398 H* 191 H (60-115) mg/dL Random Glucose (60-115) mg/dL Fasting Glucose (60-99) mg/dL Calcium (8.4-10.2) mg/dL ALT (0-40) U/L Alkaline Phosphatase (39-117) U/L C-Reactive Protein (< or = 0.50) mg/dL Urine Protein 1+ H (NEG-TRACE) MG/DL Urine Glucose (UA) >=1000 H (NEG) MG/DL Urine Blood 1+ H (NEG) 09/06/21 09/07/21 09/07/21 Range/Units 21:28 06:07 06:07 RBC 4.58 L (4.60-5.80) X10*6/uL Hgb 11.6 L (14.0-18.0) g/dl Hct 35.8 L (42.0-52.0) % MCV 78.2 L (80.0-98.0) fL MCH 25.3 L (27.0-33.0) pg Plt Count 153 L (160-400) X10*3/uL Neut % (Auto) (45-73) % Lymph % (Auto) (20-40) % Abs Immat Gran (auto) (0.00-0.03) X10*3/uL Sodium (135-145) mmol/L Anion Gap 10 L (12-20) BUN 21 H (9-16) mg/dL Creatinine (0.5-1.4) mg/dL POC Glucose 300 H (60-115) mg/dL Random Glucose (60-115) mg/dL Fasting Glucose 301 H (60-99) mg/dL Calcium 8.3 L (8.4-10.2) mg/dL ALT (0-40) U/L Alkaline Phosphatase (39-117) U/L C-Reactive Protein (< or = 0.50) mg/dL Urine Protein (NEG-TRACE) MG/DL Urine Glucose (UA) (NEG) MG/DL Urine Blood (NEG) 09/07/21 Range/Units 07:16 RBC (4.60-5.80) X10*6/uL Hgb (14.0-18.0) g/dl Hct (42.0-52.0) % MCV (80.0-98.0) fL MCH (27.0-33.0) pg Plt Count (160-400) X10*3/uL Neut % (Auto) (45-73) % Lymph % (Auto) (20-40) % Abs Immat Gran (auto) (0.00-0.03) X10*3/uL Sodium (135-145) mmol/L Anion Gap (12-20) BUN (9-16) mg/dL Creatinine (0.5-1.4) mg/dL POC Glucose 251 H (60-115) mg/dL Random Glucose (60-115) mg/dL Fasting Glucose (60-99) mg/dL Calcium (8.4-10.2) mg/dL ALT (0-40) U/L Alkaline Phosphatase (39-117) U/L C-Reactive Protein (< or = 0.50) mg/dL Urine Protein (NEG-TRACE) MG/DL Urine Glucose (UA) (NEG) MG/DL Urine Blood (NEG) Short CBC 09/06/21 09/07/21 Range/Units 15:36 06:07 WBC 9.7 8.4 (4.8-10.8) X10*3/uL Hgb 12.7 L 11.6 L (14.0-18.0) g/dl Hct 39.3 L 35.8 L (42.0-52.0) % Plt Count 170 153 L (160-400) X10*3/uL BMP 09/06/21 09/07/21 15:36 06:07 Sodium 134 L 136 Potassium 4.7 4.5 Chloride 101 107 Carbon Dioxide 24 24 BUN 20 H 21 H Creatinine 1.49 H 1.20 Calcium 8.8 8.3 L Liver Function 09/06/21 Range/Units 15:36 Total Bilirubin 0.3 (0.0-1.0) mg/dL AST 27 (5-37) U/L ALT 61 H (0-40) U/L Alkaline Phosphatase 120 H (39-117) U/L Albumin 3.7 (3.5-5.0) g/dL Urine 09/06/21 Range/Units 17:02 Urine Color YELLOW Urine Appearance CLEAR Urine pH 7.0 (5.0-8.0) Ur Specific [place] 1.010 (1.005-1.025) Urine Protein 1+ H (NEG-TRACE) MG/DL Urine Glucose (UA) >=1000 H (NEG) MG/DL All other labs normal. Imaging Additional studies: Arterial ultrasound of the right lower extremity demonstrates SFA and distal disease. NATALIA is artifactually elevated X-ray was also reviewed and demonstrates bony destruction and suggestion of osteomyelitis Assessment and Plan (1) PAD (peripheral artery disease): Status: Acute Plan Patient has a nonhealing right foot ulcer. I have discussed the pathophysiology of peripheral vascular disease with the patient. I have also discussed risk factor modification. I have reviewed the patient's arterial testing which reveals SFA and distal disease on the right side. the patient would benefit from a right leg endovascular peripheral angiogram with possible angioplasty, stent, and/or atherectomy. This has been discussed in detail with the patient along with risks, benefits, and complications. This includes but is not limited to bleeding, infection, heart attack, need for emergent surgical repair, limb ischemia, blood vessel damage, bleeding, puncture, kidney injury, bruising, allergic reaction, and skin reaction. The patient demonstrates a clear understanding. We will schedule for Friday. In addition the patient will need treatment with IV antibiotics for his underlying osteomyelitis. It is questionable if we can salvage this right 5th toe. We will continue to monitor this patient with you. Thank you for allowing us to assist in his care. Procedures Date of Service Date of Service: 09/07/21
[2021-09-07 12:12] LABS: Glucose, Whole Blood 226 mg/dL (60-115)
[2021-09-07] MEDS: Insulin Glargine,Hum.rec.anlog 100 UNIT/ML 10 ML VIAL 20 UNIT SUBCUT ×2 (13:07→20:38)
[2021-09-07 15:32] LABS: Vancomycin Random 9.7 mcg/mL (15-20)
--- NOTE | 2021-09-07 15:41 | HE.PHANOTE ---
[VANCOMYCIN ADDENDUM] Patient's trough came back at 9.7mg/L on 09/07/21; increased dose to 1500mg Q12H considering bone and joint infection, predicted AUC of 551mg/L. Random dose @1500 on 09/08/21. Will continue to monitor renal function.
[2021-09-07 16:00] VITALS: BP 167/71; PULSE 88; RESP 20; TEMP 36.9; O2SAT 97
[2021-09-07 16:07] LABS: Glucose, Whole Blood 365 mg/dL (60-115)
[2021-09-07] MEDS: vancomycin HCL 1,500 MG in 0.9 % Sodium Chloride 500 ML 333.33 MG IV (16:59)
[2021-09-07 19:04] VITALS: BP 170/69; PULSE 89; RESP 20; TEMP 37.1; O2SAT 98
[2021-09-07 19:44] LABS: Glucose, Whole Blood 320 mg/dL (60-115)
[2021-09-07] MEDS: OXcarbazepine 300 MG TABLET PO (20:31)
[2021-09-07 23:53] VITALS: BP 144/72; PULSE 83; RESP 18; TEMP 36.8; O2SAT 98
[2021-09-08] MEDS: oxyCODONE HCl Immed Release 5 MG TABLET PO ×3 (00:06→20:57)
[2021-09-08] MEDS: Piperacillin Sodium/Tazobactam 3.375 GM in 0.9 % Sodium Chloride 50 ML IV ×4 (03:02→20:56)
[2021-09-08 03:36] VITALS: BP 121/56; PULSE 70; RESP 18; TEMP 36.8; O2SAT 98
[2021-09-08] MEDS: vancomycin HCL 1,500 MG in 0.9 % Sodium Chloride 500 ML 333.33 MG IV (05:04)
[2021-09-08 06:21] LABS: Hematocrit 33.7 % (42.0-52.0); Hemoglobin 11.1 g/dl (14.0-18.0); Mean Corpuscular HGB Conc 32.9 g/dl (31.0-36.0); Mean Corpuscular Hemoglobin 25.3 pg (27.0-33.0); Mean Corpuscular Volume 76.9 fL (80.0-98.0); Mean Platelet Volume 11.3 fL (9.4-12.4); Platelet Count 152 X10*3/uL (160-400); Red Blood Count 4.38 X10*6/uL (4.60-5.80); Red Cell Distribution Width 13.5 % (11.0-16.0); White Blood Count 7.3 X10*3/uL (4.8-10.8)
[2021-09-08] MEDS: Heparin Sodium,Porcine 5,000 UNIT/ML VIAL 5000 UNIT SUBCUT ×3 (06:39→20:55)
[2021-09-08 06:41] LABS: Anion Gap 8 (12-20); Blood Urea Nitrogen 18 mg/dL (9-16); Calcium 8.3 mg/dL (8.4-10.2); Carbon Dioxide 25 mmol/L (22-29); Chloride 106 mmol/L (96-108); Creatinine Clr Calc Pharmacy 94.8; Estimated Glomerular Filt Rate > 60; Glucose Fasting 229 mg/dL (60-99); Potassium 4.1 mmol/L (3.3-5.1); Sodium 135 mmol/L (135-145)
[2021-09-08 08:00] VITALS: BP 134/63; PULSE 73; RESP 18; TEMP 36.9; O2SAT 99
[2021-09-08 08:01] LABS: Glucose, Whole Blood 192 mg/dL (60-115)
[2021-09-08] MEDS: Insulin Lispro 100 UNIT/ML 3 ML VIAL SUBCUT ×7 (08:24→20:56)
[2021-09-08] MEDS: cloNIDine HCL 0.1 MG TABLET PO ×2 (08:25→20:55)
[2021-09-08] MEDS: Insulin Glargine,Hum.rec.anlog 100 UNIT/ML 10 ML VIAL 20 UNIT SUBCUT ×2 (08:25→20:56)
[2021-09-08] MEDS: Acetaminophen 325 MG TABLET 650 MG PO (08:26)
[2021-09-08] MEDS: lisinopriL 10 MG TABLET PO (08:26)
[2021-09-08] MEDS: 0.9 % Sodium Chloride Flush 3 ML SYRINGE IVFLUSH ×3 (08:28→20:55)
[2021-09-08] MEDS: risperiDONE 2 MG TABLET PO ×2 (08:35→20:55)
--- NOTE | 2021-09-08 09:31 | HO.PM.IMPN ---
Subjective Subjective Date of Service: 09/08/21 Interval History: cc: rle pain and swelling interval history: unchanged Cardiovascular Cardiovascular: Reports no additional cardiovascular complaints Respiratory Respiratory: Reports no additional respiratory complaints Physical Exam Vital Signs: Vital Signs: Last Vital Signs Temp 98.4 F 09/08/21 08:00 Pulse 73 09/08/21 08:00 Resp 18 09/08/21 08:00 BP 134/63 09/08/21 08:00 Pulse Ox 99 09/08/21 08:00 O2 Del Method 09/08/21 08:00 BMI result Body Mass Index 31.9 General: AO X 3, no acute distress Resp: CTA bilateral, no accessory muscles used CVS: S1,S2,RRR GI: soft, non tender, non distended Neuro: motor grossly intact, alert Psych: appropriate affect, appropriate insight rle edema, ulcer Objective Data Active Medications Acetaminophen (Acetaminophen 325 Mg Tablet) 650 mg PO Q6H PRN PRN Reason: Pain, Mild (Pain Scale 1-3) Last Admin: 09/08/21 08:26 Dose: 650 mg Documented By: LAURA Clonidine HCl (Clonidine Hcl 0.1 Mg Tablet) 0.1 mg PO BID [facility]; Protocol Last Admin: 09/08/21 08:25 Dose: 0.1 mg Documented By: LAURA Dextrose (Dextrose 50 % 25 Gm/50 Ml Syringe) 25 gm IVPUSH Q15M PRN; Protocol PRN Reason: per Hypoglycemia Standing Ord. Glucose (Glucose Gel 15 Gm Gel..Gram.) 15 gm PO Q15M PRN; Protocol PRN Reason: per Hypoglycemia Standing Ord. Heparin Sodium (Porcine) (Heparin Sodium,Porcine 5,000 Unit/Ml Vial) 5,000 unit SUBCUT Q8H [facility] Last Admin: 09/08/21 06:39 Dose: 5,000 unit Documented By: SCOTTY Piperacillin Sod/Tazobactam (Sod 3.375 gm/ Sodium Chloride) 50 mls @ 100 mls/hr IV Q6H [facility] Last Infusion: 09/08/21 09:07 Dose: 0 mls/hr Documented By: LAURA Sodium Chloride (Ns) 1,000 mls @ 100 mls/hr IVCONT .Q10H [facility] Vancomycin HCl 1,500 mg/ (Sodium Chloride) 500 mls @ 333.333 mls/hr IV Q12H [facility] Last Infusion: 09/08/21 06:38 Dose: 0 mls/hr Documented By: SCOTTY Insulin Glargine (Insulin Glargine,Hum.Rec.Anlog 100 Unit/Ml 10 Ml Vial) 20 unit SUBCUT BID [facility] Last Admin: 09/08/21 08:25 Dose: 20 unit Documented By: LAURA Insulin Human Lispro (Insulin Lispro 100 Unit/Ml 3 Ml Vial) 0 unit SUBCUT QIDACHS [facility]; Protocol Last Admin: 09/08/21 08:24 Dose: 2 unit Documented By: LAURA Insulin Human Lispro (Insulin Lispro 100 Unit/Ml 3 Ml Vial) 3 unit SUBCUT QIDACHS [facility] Last Admin: 09/08/21 08:25 Dose: 3 unit Documented By: LAURA Lisinopril (Lisinopril 10 Mg Tablet) 10 mg PO DAILY [facility]; Protocol Last Admin: 09/08/21 08:26 Dose: 10 mg Documented By: LAURA Oxcarbazepine (Oxcarbazepine 300 Mg Tablet) 300 mg PO BEDTIME [facility] Last Admin: 09/07/21 20:31 Dose: 300 mg Documented By: SCOTTY Pharmacy Consult (Consult Rx Vancomycin Dosing) 1 each MISCELLANE DAILY PRN PRN Reason: Consult order Pharmacy Consult (Consult Rx Perform Med Rec) 1 each MISCELLANE ONCE PRN PRN Reason: Consult order Pharmacy Consult (Consult Rx Vancomycin Dosing) 1 each MISCELLANE DAILY PRN PRN Reason: Consult order Risperidone (Risperidone 2 Mg Tablet) 2 mg PO BID [facility] Last Admin: 09/08/21 08:35 Dose: 2 mg Documented By: LAURA Sodium Chloride (0.9 % Sodium Chloride Flush 3 Ml Syringe) 3 ml IVFLUSH QSHIFT [facility] Last Admin: 09/08/21 08:28 Dose: 3 ml Documented By: LAURA Labs CBC & Chem 7: 09/08/21 06:06 09/08/21 06:06 Labs: Laboratory Results - last 24 hr 09/07/21 09/07/21 09/07/21 12:09 14:56 16:03 MCV MCH MCHC RDW Plt Count MPV Absolute Nucleated RBC Nucleated RBC % (auto) Anion Gap Estim Creat Clear Calc Estimated GFR POC Glucose 226 H 365 H* Fasting Glucose Calcium Random Vancomycin 9.7 L 09/07/21 09/08/21 09/08/21 19:35 06:06 06:06 MCV 76.9 L MCH 25.3 L MCHC 32.9 RDW 13.5 Plt Count 152 L MPV 11.3 Absolute Nucleated RBC 0.000 Nucleated RBC % (auto) 0.0 Anion Gap 8 L Estim Creat Clear Calc 94.8 Estimated GFR > 60 POC Glucose 320 H Fasting Glucose 229 H Calcium 8.3 L Random Vancomycin 09/08/21 07:56 MCV MCH MCHC RDW Plt Count MPV Absolute Nucleated RBC Nucleated RBC % (auto) Anion Gap Estim Creat Clear Calc Estimated GFR POC Glucose 192 H Fasting Glucose Calcium Random Vancomycin Microbiology Microbiology Results: Microbiology 09/06/21 15:37 Blood Culture - Preliminary Blood - Venous No growth after 24 hours. 09/06/21 15:36 Blood Culture - Preliminary Blood - Venous No growth after 24 hours. Assessment and Plan (1) Osteomyelitis: Status: Acute Plan 51M presented with nonhealing DFU Right lower extremity diabetic foot ulcer/osteomyelitis Duplex negative for DVT Continue vancomycin and Zosyn Vascular appreciated, plan for angiogram Arterial duplex - mild disease Diabetes with hyperglycemia Basal (increased to 20 units bid) bolus (increased to 3 units plus correction) insulin, monitor glucose Hypertension lisinopril schizoaffective disorder risperdal, clonidine History of hepatitis C Patient reports treatment in [place] OBEY resolved, monitor Obesity Weight loss recommended DVT prophylaxis with heparin subQ Full code reason for continued hospitalization:iv abx for DFU, ogoing vascular work up Quality Stroke Does the patient have a stroke diagnosis?: No VTE Prior VTE?: No VTE Risk Level:: Medical - moderate - high VTE Device Contraindication: Treatment Not Indicated VTE Drug Contraindication: N/A - Med Ordered
--- NOTE | 2021-09-08 11:43 | MHC.CM.PN ---
Addendum entered by Niya Michelle 09/13/21 16:00: [facility] [place] , [facility] [place], [facility], [facility] , [facility] , [facility] [place], [place] [address] [place], [place], [facility], [facility] and and [facility] following. discharge plan barrier no pcp, no vna for wound dressings no [facility] [place]- has hcp pic line for iv abx, plan a str with [facility] following and [facility] pland b - short stay suregry for iv abx qd erapeneum ( approved by jessa nunn) but no iv erapeneum given kaden melo as yet yhis is once a day only . requested this from the hospitalsit will need to complete paperwork for short stay for iv abx on 09/14/21 and called to and given to emerita (alejandro is off) tried several time to reach his brother or felicia and messages left for return call patient can only go to the short stay if he has transportation each day case discussed with the hsoptilaist and plan for d/c tomorrow for safe and inclusive plan Original Note: EMR REVIEWED, PT ADMITTED W/ R LEG SWELLING, SURGICAL CONSULT COMPLETED W/DR BECKETT AND PLAN FOR ANGIO ON SUNDAY 09/10, CM MET W/PT VIA INDUSTRIAL PHOTOGRAPHER, PT REPORTS HE LIVES W/HER MOTHER, REPORTS HIS MEMORY ISN'T THE BEST D/T MENTAL HEALTH ISSUES, PT HAS DX OF SCHIZOAFFECTIVE D/O, PT REPORTS HE HAS A PSYCHIATRIST AND PCP HOWEVER DOES NOT KNOW NAME AND REQUESTED CM CONTACT HIS BROTHER/HCO ARNOLDO [phone], ARNOLDO REPORTED PT DOES NOT HAVE ANY DOCTOR AT THIS TIME, CM TO DELIVER LIST OF [facility] PROVIDERS TO PT W/CONTACT INFO FOR [facility]. PT REPORTS COVID X2 HOWEVER DOES NOT RECALL NAME, CM WILL NEED TO FOLLOW-UP W/C TO DETERMINE IF PTHAS PCP AND COVID VACCINE ON FILE. ANGIO PLANNED FOR SUNDAY 09/10 W/DR BECKETT D/C PLAN: HOME W/NO SERVICES W/FAMILY FOR TRANSPORT.
[2021-09-08 12:00] VITALS: BP 140/65; PULSE 78; RESP 16; TEMP 36.5; O2SAT 98
[2021-09-08 12:17] LABS: Glucose, Whole Blood 209 mg/dL (60-115)
[2021-09-08 15:09] VITALS: BP 157/71; PULSE 76; RESP 20; TEMP 36.6; O2SAT 100
[2021-09-08 15:56] LABS: Vancomycin Trough 15.5 mcg/mL (10.0-20.0)
[2021-09-08 16:03] LABS: Glucose, Whole Blood 235 mg/dL (60-115)
--- NOTE | 2021-09-08 16:23 | HE.PHANOTE ---
Vancomycin Dosing Addendum Vancomycin trough 15.5 after 2 doses of 1500 mg. Predicted AUC with 1500 mg q12h is 638. Decreased dose to 1250 mg q12h for predicted AUC of 542. next trough 09/09/21 @1500
[2021-09-08] MEDS: vancomycin HCL 1,250 MG in 0.9 % Sodium Chloride 250 ML 166.67 MG IV (16:42)
[2021-09-08 19:18] VITALS: BP 147/86; PULSE 86; RESP 20; TEMP 36.9; O2SAT 100
[2021-09-08 20:38] LABS: Glucose, Whole Blood 135 mg/dL (60-115)
[2021-09-08] MEDS: OXcarbazepine 300 MG TABLET PO (20:55)
[2021-09-08 23:36] VITALS: BP 139/75; PULSE 84; RESP 20; TEMP 37.3; O2SAT 97
[2021-09-09] VITALS (8 sets, daily range): BP systolic 135–164; BP diastolic 49–80; PULSE 70–87; RESP 16–18; TEMP 36.2–37.2; O2SAT 97–100
[2021-09-09] MEDS: Piperacillin Sodium/Tazobactam 3.375 GM in 0.9 % Sodium Chloride 50 ML IV ×4 (02:56→19:40)
[2021-09-09] MEDS: Heparin Sodium,Porcine 5,000 UNIT/ML VIAL 5000 UNIT SUBCUT ×3 (05:40→23:41)
[2021-09-09] MEDS: vancomycin HCL 1,250 MG in 0.9 % Sodium Chloride 250 ML 166.66 MG IV ×2 (05:41→16:55)
[2021-09-09 07:10] LABS: Estimated Glomerular Filt Rate > 60
[2021-09-09 07:49] LABS: Glucose, Whole Blood 192 mg/dL (60-115)
[2021-09-09] MEDS: lisinopriL 10 MG TABLET PO (07:52)
[2021-09-09] MEDS: cloNIDine HCL 0.1 MG TABLET PO ×2 (07:52→19:41)
[2021-09-09] MEDS: Insulin Glargine,Hum.rec.anlog 100 UNIT/ML 10 ML VIAL 20 UNIT SUBCUT (07:52)
[2021-09-09] MEDS: risperiDONE 2 MG TABLET PO ×2 (07:52→19:41)
[2021-09-09] MEDS: Insulin Lispro 100 UNIT/ML 3 ML VIAL SUBCUT ×8 (07:53→20:03)
[2021-09-09] MEDS: 0.9 % Sodium Chloride Flush 3 ML SYRINGE IVFLUSH ×3 (08:57→23:41)
--- NOTE | 2021-09-09 11:53 | HO.PM.IMPN ---
Subjective Subjective Date of Service: 09/09/21 Interval History: cc: rle pain and swelling interval history: unchanged Cardiovascular Cardiovascular: Reports no additional cardiovascular complaints Respiratory Respiratory: Reports no additional respiratory complaints Physical Exam Vital Signs: Vital Signs: Last Vital Signs Temp 98.9 F 09/09/21 07:44 Pulse 78 09/09/21 07:44 Resp 16 09/09/21 07:44 BP 143/75 H 09/09/21 07:44 Pulse Ox 97 09/09/21 07:44 O2 Del Method 09/09/21 07:44 BMI result Body Mass Index 31.9 General: AO X 3, no acute distress Resp: CTA bilateral, no accessory muscles used CVS: S1,S2,RRR GI: soft, non tender, non distended Neuro: motor grossly intact, alert Psych: appropriate affect, appropriate insight rle edema, ulcer Objective Data Active Medications Acetaminophen (Acetaminophen 325 Mg Tablet) 650 mg PO Q6H PRN PRN Reason: Pain, Mild (Pain Scale 1-3) Last Admin: 09/08/21 08:26 Dose: 650 mg Documented By: LAURA Clonidine HCl (Clonidine Hcl 0.1 Mg Tablet) 0.1 mg PO BID [facility]; Protocol Last Admin: 09/09/21 07:52 Dose: 0.1 mg Documented By: LAURA Dextrose (Dextrose 50 % 25 Gm/50 Ml Syringe) 25 gm IVPUSH Q15M PRN; Protocol PRN Reason: per Hypoglycemia Standing Ord. Glucose (Glucose Gel 15 Gm Gel..Gram.) 15 gm PO Q15M PRN; Protocol PRN Reason: per Hypoglycemia Standing Ord. Heparin Sodium (Porcine) (Heparin Sodium,Porcine 5,000 Unit/Ml Vial) 5,000 unit SUBCUT Q8H [facility] Last Admin: 09/09/21 05:40 Dose: 5,000 unit Documented By: SCOTTY Piperacillin Sod/Tazobactam (Sod 3.375 gm/ Sodium Chloride) 50 mls @ 100 mls/hr IV Q6H [facility] Last Infusion: 09/09/21 09:37 Dose: 0 mls/hr Documented By: LAURA Sodium Chloride (Ns) 1,000 mls @ 100 mls/hr IVCONT .Q10H [facility] Vancomycin HCl 1,250 mg/ (Sodium Chloride) 250 mls @ 166.667 mls/hr IV Q12H [facility] Last Infusion: 09/09/21 07:34 Dose: 0 mls/hr Documented By: LAURA Insulin Glargine (Insulin Glargine,Hum.Rec.Anlog 100 Unit/Ml 10 Ml Vial) 20 unit SUBCUT BID [facility] Last Admin: 09/09/21 07:52 Dose: 20 unit Documented By: LAURA Insulin Human Lispro (Insulin Lispro 100 Unit/Ml 3 Ml Vial) 0 unit SUBCUT QIDACHS [facility]; Protocol Last Admin: 09/09/21 07:53 Dose: 2 unit Documented By: LAURA Insulin Human Lispro (Insulin Lispro 100 Unit/Ml 3 Ml Vial) 3 unit SUBCUT QIDACHS [facility] Last Admin: 09/09/21 07:53 Dose: 3 unit Documented By: LAURA Lisinopril (Lisinopril 10 Mg Tablet) 10 mg PO DAILY [facility]; Protocol Last Admin: 09/09/21 07:52 Dose: 10 mg Documented By: LAURA Oxcarbazepine (Oxcarbazepine 300 Mg Tablet) 300 mg PO BEDTIME [facility] Last Admin: 09/08/21 20:55 Dose: 300 mg Documented By: SCOTTY Oxycodone HCl (Oxycodone Hcl Immed Release 5 Mg Tablet) 5 mg PO Q6H PRN PRN Reason: moderate pain Last Admin: 09/08/21 20:57 Dose: 5 mg Documented By: SCOTTY Pharmacy Consult (Consult Rx Perform Med Rec) 1 each MISCELLANE ONCE PRN PRN Reason: Consult order Pharmacy Consult (Consult Rx Vancomycin Dosing) 1 each MISCELLANE DAILY PRN PRN Reason: Consult order Risperidone (Risperidone 2 Mg Tablet) 2 mg PO BID [facility] Last Admin: 09/09/21 07:52 Dose: 2 mg Documented By: LAURA Sodium Chloride (0.9 % Sodium Chloride Flush 3 Ml Syringe) 3 ml IVFLUSH QSHIFT [facility] Last Admin: 09/09/21 08:57 Dose: 3 ml Documented By: LAURA Labs CBC & Chem 7: 09/08/21 06:06 09/09/21 06:29 Labs: Laboratory Results - last 24 hr 09/08/21 09/08/21 09/08/21 11:44 15:03 15:16 Estim Creat Clear Calc Estimated GFR POC Glucose 209 H 235 H Vancomycin Trough 15.5 09/08/21 09/09/21 09/09/21 19:17 06:29 07:45 Estim Creat Clear Calc 87.0 Estimated GFR > 60 POC Glucose 135 H 192 H Vancomycin Trough Microbiology Microbiology Results: Microbiology 09/06/21 15:37 Blood Culture - Preliminary Blood - Venous No growth after 48 hours. 09/06/21 15:36 Blood Culture - Preliminary Blood - Venous No growth after 48 hours. Assessment and Plan (1) Osteomyelitis: Status: Acute Plan 51M presented with nonhealing DFU Right lower extremity diabetic foot ulcer/osteomyelitis Duplex negative for DVT Continue vancomycin and Zosyn, monitor trough, bmp Vascular appreciated, plan for angiogram Arterial duplex - mild disease Diabetes with hyperglycemia Basal bolus insulin, monitor glucose Hypertension lisinopril schizoaffective disorder risperdal, clonidine History of hepatitis C Patient reports treatment in [place] OBEY resolved, monitor Obesity Weight loss recommended DVT prophylaxis with heparin subQ Full code reason for continued hospitalization:iv abx for DFU, ogoing vascular work up Quality Stroke Does the patient have a stroke diagnosis?: No VTE Prior VTE?: No VTE Risk Level:: Medical - moderate - high VTE Device Contraindication: Treatment Not Indicated VTE Drug Contraindication: N/A - Med Ordered
[2021-09-09 12:00] LABS: Glucose, Whole Blood 170 mg/dL (60-115)
[2021-09-09] MEDS: oxyCODONE HCl Immed Release 5 MG TABLET PO ×2 (14:48→20:02)
[2021-09-09 16:12] LABS: Vancomycin Trough 13.8 mcg/mL (10.0-20.0)
--- NOTE | 2021-09-09 16:25 | HE.PHANOTE ---
Vancomycin Dosing Addendum Vancomycin Trough 13.8. Continue with current regimen. Next trough 09/10/21 @1500.
[2021-09-09 16:37] LABS: Glucose, Whole Blood 206 mg/dL (60-115)
[2021-09-09 17:40] LABS: Glucose, Whole Blood 188 mg/dL (60-115)
[2021-09-09] MEDS: OXcarbazepine 300 MG TABLET PO (19:41)
[2021-09-09 20:54] LABS: Glucose, Whole Blood 205 mg/dL (60-115)
[2021-09-10] VITALS (13 sets, daily range): BP systolic 129–178; BP diastolic 66–86; PULSE 69–93; RESP 16–18; TEMP 36.2–37.3; O2SAT 96–99
[2021-09-10] MEDS: Piperacillin Sodium/Tazobactam 3.375 GM in 0.9 % Sodium Chloride 50 ML IV ×3 (04:12→21:13)
[2021-09-10] MEDS: vancomycin HCL 1,250 MG in 0.9 % Sodium Chloride 250 ML 166.6 MG IV (04:40)
[2021-09-10 06:30] LABS: Glucose, Whole Blood 211 mg/dL (60-115)
[2021-09-10] MEDS: 0.9 % Sodium Chloride 1,000 ML 100 ML IVCONT ×3 (06:34→21:23)
[2021-09-10 06:40] LABS: Anion Gap 11 (12-20); Blood Urea Nitrogen 13 mg/dL (9-16); Calcium 8.6 mg/dL (8.4-10.2); Carbon Dioxide 25 mmol/L (22-29); Chloride 104 mmol/L (96-108); Creatinine Clr Calc Pharmacy 93.9; Estimated Glomerular Filt Rate > 60; Glucose Fasting 228 mg/dL (60-99); Potassium 4.5 mmol/L (3.3-5.1); Sodium 135 mmol/L (135-145)
[2021-09-10 07:04] LABS: Hematocrit 37.9 % (42.0-52.0); Hemoglobin 12.4 g/dl (14.0-18.0); Mean Corpuscular HGB Conc 32.7 g/dl (31.0-36.0); Mean Corpuscular Hemoglobin 25.5 pg (27.0-33.0); Mean Corpuscular Volume 77.8 fL (80.0-98.0); Mean Platelet Volume 11.5 fL (9.4-12.4); Platelet Count 198 X10*3/uL (160-400); Red Blood Count 4.87 X10*6/uL (4.60-5.80); Red Cell Distribution Width 13.6 % (11.0-16.0); White Blood Count 7.4 X10*3/uL (4.8-10.8)
[2021-09-10] MEDS: iohexoL 300 MG/ML 100 ML INFUS..BTL IV (09:26)
[2021-09-10] MEDS: iohexoL 300 MG/ML 50 ML INFUS..BTL PR (09:27)
--- NOTE | 2021-09-10 09:59 | MHC.CLN ---
NUTRITION WEIGHT LOSS NOTED IN ADMITTING ASSESSMENT. NO WEIGHT HISTORY VIEWED. CURRENTLY NPO, BUT INTAKE 100% PRIOR TO NPO. RECOMMEND DIABETIC 2000 KCAL WHEN DIET RESUMES.
--- NOTE | 2021-09-10 10:06 | P.OP_ITS ---
Operative Note Operative Note Date of Service: 09/10/21 Narrative: Angiogram report from [facility] Preoperative diagnosis: Atherosclerosis of right lower extremity with nonhealing ulcer Postoperative diagnosis: Same Procedure: 1. Ultrasound-guided left common femoral access 2. Aortogram with right lower extremity runoff 3. Angioplasty of right anterior tibial artery 4. Angioplasty of right posterior tibial artery Surgeon:Angel Holt M.D., FACS, RPVI Sole Molder:None Anesthesia: Local with moderate conscious sedation. Total intraservice moderate sedation time was 88 minutes. I monitored the patient's level of consciousness and physiologic status continuously throughout the procedure. Specimens:none Drains:none Estimated blood loss: Less than 10 ml Implant: [employer]tronic chocolate balloon 2.5 x 80 Indications: 51-year-old diabetic gentleman with nonhealing right 5th toe ulcer. Now presents for endovascular intervention. Risks benefits complications of the procedure were discussed with costume designer present. Of note the patient does not sign and X was placed in the location of signature by the patient. The patient has signed the informed consent after reviewing risks, complications, benefits, and alternatives previously discussed with the patient. The patient was given the opportunity to ask any additional questions or voice any concerns. All questions were answered to the patient's satisfaction. Procedure in detail: Patient was brought to the angiography suite prior to which a time-out was called for patient identification and site verification. Bilateral groins were prepped and draped in the standard surgical fashion. Under ultrasound guidance left common femoral was punctured with micro puncture needle and wire. Subsequently a precision 5 [place]uran sheath was then placed. Bentson wire was advanced to the level of the aorta. 5 [place]uran Flush catheter was brought up and parked at the level of the renal arteries. Aortogram was then undertaken. Catheter was brought down to the level of the iliac bifurcation. Iliacs were subsequently imaged. Catheter was then brought in up and over to the right side SFA. Runoff study was then undertaken. At this time below-knee disease was noted. 8000 units of systemic heparin was administered. After 5 minutes of circulation time up and over 6 [place]uran sheath was then placed. Once in appropriate position and 014 glidewire Advantage was brought all the way down to the tibial vessels. Never cross catheter was used to 1st advance the wire into the anterior tibial artery. We confirmed true lumen with contrast through the catheter. Once in appropriate position using a chocolate balloon a 2.5 by 80 balloon. This was done in 2 separate subsequent insufflations. Once this was accomplished we brought the wire back and we [place] advanced to the posterior tibial artery. Once again a 2.5 x 80 chocolate balloon was used. Once this was all accomplished completion angiogram demonstrated good result. There was concern of anterior tibial vessel spasming which appeared to be resolving as time progressed. Catheter wire sheath was brought back to the ipsilateral side. StarClose closure device was then placed. Patient tolerated the procedure well. Returned to recovery with stable vitals. Interpretation of films: 1. Ultrasound demonstrates appropriate femoral puncture. Image of which was saved. 2. Aortogram demonstrates appropriate caliber aorta. Minimal disease. Appropriate take-off of the renals. 3. Iliac images demonstrate no significant disease 4. Right Leg Common femoral artery: No significant disease Profundus Femoris: No significant disease Superficial femoral artery: No significant disease Popliteal artery (p1,p2,p3): No significant disease Anterior tibial artery: Small caliber multiple stenotic lesions throughout the anterior tibial Peroneal artery: Occludes in the proximal 1/3 Posterior tibial artery: Patent all the way down stenotic at the proximal 1/3 portion. Dorsalis pedis/plantar arch: Incomplete Conclusion: 1. Successful plasty of right anterior tibial and posterior tibial arteries 2. Anticoagulation status: Will need to be on aspirin and Plavix for minimum of 6 months This note is constructed using voice recognition software. While every effort has been made to ensure accuracy, construction equipment mechanic errors may have been included. Thank you for allowing me to participate in the care of your patient. Yours sincerely, Angel Holt MD, FACS, R.P.V.I.
[2021-09-10] MEDS: Clopidogrel Bisulfate 300 MG TABLET PO (10:18)
[2021-09-10] MEDS: Aspirin 325 MG TABLET 650 MG PO (10:18)
[2021-09-10] MEDS: lisinopriL 10 MG TABLET PO (12:27)
[2021-09-10] MEDS: risperiDONE 2 MG TABLET PO ×2 (12:27→21:15)
[2021-09-10] MEDS: cloNIDine HCL 0.1 MG TABLET PO ×2 (12:27→21:13)
[2021-09-10] MEDS: Insulin Glargine,Hum.rec.anlog 100 UNIT/ML 10 ML VIAL 20 UNIT SUBCUT ×2 (12:28→21:12)
[2021-09-10] MEDS: Insulin Lispro 100 UNIT/ML 3 ML VIAL SUBCUT ×6 (12:28→21:14)
--- NOTE | 2021-09-10 14:11 | HO.PM.IMPN ---
Subjective Subjective Date of Service: 09/10/21 Interval History: cc: rle pain and swelling interval history: unchanged Cardiovascular Cardiovascular: Reports no additional cardiovascular complaints Respiratory Respiratory: Reports no additional respiratory complaints Physical Exam Vital Signs: Vital Signs: Last Vital Signs Temp 97.2 F 09/10/21 12:06 Pulse 90 09/10/21 12:06 Resp 16 09/10/21 12:06 BP 174/86 H 09/10/21 12:06 Pulse Ox 97 09/10/21 12:06 O2 Del Method 09/10/21 12:06 BMI result Body Mass Index 31.9 General: AO X 3, no acute distress Resp: CTA bilateral, no accessory muscles used CVS: S1,S2,RRR GI: soft, non tender, non distended Neuro: motor grossly intact, alert Psych: appropriate affect, appropriate insight rle edema, ulcer Objective Data Active Medications Acetaminophen (Acetaminophen 325 Mg Tablet) 650 mg PO Q6H PRN PRN Reason: Pain, Mild (Pain Scale 1-3) Last Admin: 09/08/21 08:26 Dose: 650 mg Documented By: LAURA Aspirin (Aspirin Enteric Coated 81 Mg Tablet.Dr) 81 mg PO DAILY [facility] Clonidine HCl (Clonidine Hcl 0.1 Mg Tablet) 0.1 mg PO BID [facility]; Protocol Last Admin: 09/10/21 12:27 Dose: 0.1 mg Documented By: NARENDRA Clopidogrel Bisulfate (Clopidogrel Bisulfate 75 Mg Tablet) 75 mg PO DAILY [facility] Dextrose (Dextrose 50 % 25 Gm/50 Ml Syringe) 25 gm IVPUSH Q15M PRN; Protocol PRN Reason: per Hypoglycemia Standing Ord. Glucose (Glucose Gel 15 Gm Gel..Gram.) 15 gm PO Q15M PRN; Protocol PRN Reason: per Hypoglycemia Standing Ord. Heparin Sodium (Porcine) (Heparin Sodium,Porcine 5,000 Unit/Ml Vial) 5,000 unit SUBCUT Q8H [facility] Last Admin: 09/10/21 00:38 Dose: Not Given Documented By: NADIR Non-Admin Reason: hold morning dose per Piperacillin Sod/Tazobactam (Sod 3.375 gm/ Sodium Chloride) 50 mls @ 100 mls/hr IV Q6H [facility] Last Admin: 09/10/21 11:49 Dose: Not Given Documented By: NARENDRA Non-Admin Reason: Off Unit: Surgery Sodium Chloride (Ns) 1,000 mls @ 100 mls/hr IVCONT .Q10H [facility] Last Infusion: 09/10/21 11:45 Dose: 0 mls/hr Documented By: ARSLAN Vancomycin HCl 1,250 mg/ (Sodium Chloride) 250 mls @ 166.667 mls/hr IV Q12H [facility] Last Infusion: 09/10/21 06:36 Dose: 0 mls/hr Documented By: NADIR Insulin Glargine (Insulin Glargine,Hum.Rec.Anlog 100 Unit/Ml 10 Ml Vial) 20 unit SUBCUT BID [facility] Last Admin: 09/10/21 12:28 Dose: 20 unit Documented By: NARENDAR Insulin Human Lispro (Insulin Lispro 100 Unit/Ml 3 Ml Vial) 0 unit SUBCUT QIDACHS [facility]; Protocol Last Admin: 09/10/21 12:28 Dose: 6 unit Documented By: NARENDRA Insulin Human Lispro (Insulin Lispro 100 Unit/Ml 3 Ml Vial) 3 unit SUBCUT QIDACHS [facility] Last Admin: 09/10/21 12:28 Dose: 3 unit Documented By: NARENDRA Lisinopril (Lisinopril 10 Mg Tablet) 10 mg PO DAILY [facility]; Protocol Last Admin: 09/10/21 12:27 Dose: 10 mg Documented By: NARENDRA Morphine Sulfate (Morphine Sulfate 4 Mg/Ml Cartridge) 4 mg IVPUSH Q2H PRN; Protocol PRN Reason: Pain, Severe (Pain Scale 7-10) Oxcarbazepine (Oxcarbazepine 300 Mg Tablet) 300 mg PO BEDTIME [facility] Last Admin: 09/09/21 19:41 Dose: 300 mg Documented By: MEENAKSHI Oxycodone HCl (Oxycodone Hcl Immed Release 5 Mg Tablet) 5 mg PO Q6H PRN PRN Reason: moderate pain Last Admin: 09/09/21 20:02 Dose: 5 mg Documented By: MEENAKSHI Pharmacy Consult (Consult Rx Perform Med Rec) 1 each MISCELLANE ONCE PRN PRN Reason: Consult order Pharmacy Consult (Consult Rx Vancomycin Dosing) 1 each MISCELLANE DAILY PRN PRN Reason: Consult order Risperidone (Risperidone 2 Mg Tablet) 2 mg PO BID [facility] Last Admin: 09/10/21 12:27 Dose: 2 mg Documented By: NARENDRA Sodium Chloride (0.9 % Sodium Chloride Flush 3 Ml Syringe) 3 ml IVFLUSH QSHIFT [facility]ANTI Last Admin: 09/10/21 07:59 Dose: Not Given Documented By: NARENDRA Non-Admin Reason: Off Unit: Surgery Labs CBC & Chem 7: 09/10/21 06:05 09/10/21 06:05 Labs: Laboratory Results - last 24 hr 09/09/21 09/09/21 09/09/21 15:06 15:45 16:43 MCV MCH MCHC RDW Plt Count MPV Absolute Nucleated RBC Nucleated RBC % (auto) Anion Gap Estim Creat Clear Calc Estimated GFR POC Glucose 206 H 188 H Fasting Glucose Calcium Vancomycin Trough 13.8 09/09/21 09/10/21 09/10/21 19:40 06:05 06:05 MCV 77.8 L MCH 25.5 L MCHC 32.7 RDW 13.6 Plt Count 198 D MPV 11.5 Absolute Nucleated RBC 0.000 Nucleated RBC % (auto) 0.0 Anion Gap 11 L Estim Creat Clear Calc 93.9 Estimated GFR > 60 POC Glucose 205 H Fasting Glucose 228 H Calcium 8.6 Vancomycin Trough 09/10/21 06:27 MCV MCH MCHC RDW Plt Count MPV Absolute Nucleated RBC Nucleated RBC % (auto) Anion Gap Estim Creat Clear Calc Estimated GFR POC Glucose 211 H Fasting Glucose Calcium Vancomycin Trough Assessment and Plan (1) Osteomyelitis: Status: Acute Plan 51M presented with nonhealing DFU Right lower extremity diabetic foot ulcer/osteomyelitis Duplex negative for DVT Continue vancomycin and Zosyn, monitor trough, bmp s/p angiogram, angioplasty vascular following dapl monitor bmp Diabetes with hyperglycemia Basal bolus insulin, monitor glucose Hypertension lisinopril schizoaffective disorder risperdal, clonidine History of hepatitis C Patient reports treatment in [place] OBEY resolved, monitor Obesity Weight loss recommended DVT prophylaxis with lovenox Full code reason for continued hospitalization:iv abx for DFU Quality Stroke Does the patient have a stroke diagnosis?: No VTE Prior VTE?: No VTE Risk Level:: Medical - moderate - high VTE Device Contraindication: Treatment Not Indicated VTE Drug Contraindication: N/A - Med Ordered
--- NOTE | 2021-09-10 15:12 | MHC.CM.PN ---
NURSE COUNSELING DEPARTMENT CHAIR NOTE ELECTRONIC MEDICAL RECORD REVIEWED ALONG WITH CASE DISCUSSED WITH STAFF NURSE AND THE HOSPITALIST , PER DOCUMENTATION , OSTEOMYELITIS/DIABETIC FOOT ULCER RT LOWER EXTREMITY, DUPLIC NEG FOR DVT, CONTUINUE IV ABX VANCOMYCIN AND ZOSYN MONITOR TROUGH LEVELS ABD BMP, S./P ANGIOGRAM AND ANGIOPLASTY DISCHARGE PLAN HOME WITH [facility] VS [facility] SERVICES HCP BROTHER ARNOLDO REARDON TRIED TO CALL [facility] CALLER NOT AVAILABLE DR BECKETT FOLLOWING pcp unknown
--- NOTE | 2021-09-10 16:10 | PC.NURSE ---
PT RETURNED FROM PACU AT 1150. PT AMB TO BR THEN BACK TO BED. BEDREST WITH BRP MAINTAINED. BILATERAL PEDAL , POSTERIOR TIBIAL AND FEMORAL PUSLES PRESENT WITH DOPPLER. X2 LEFT FEMORAL INCISION D&I.
[2021-09-10 16:17] LABS: Vancomycin Trough 14.4 mcg/mL (10.0-20.0)
[2021-09-10 16:27] LABS: Glucose, Whole Blood 295 mg/dL (60-115)
[2021-09-10 16:36] LABS: Glucose, Whole Blood 210 mg/dL (60-115)
[2021-09-10] MEDS: vancomycin HCL 1,500 MG in 0.9 % Sodium Chloride 500 ML 333.33 MG IV (16:53)
--- NOTE | 2021-09-10 19:24 | HE.PHANOTE ---
today's trough = 14.4. Previously 13.8. increased dose to 1500 mg q12h to boost auc up from 402 to appx 481
[2021-09-10 20:54] LABS: Glucose, Whole Blood 302 mg/dL (60-115)
[2021-09-10] MEDS: oxyCODONE HCl Immed Release 5 MG TABLET PO (21:14)
[2021-09-10] MEDS: OXcarbazepine 300 MG TABLET PO (21:15)
[2021-09-10] MEDS: Morphine Sulfate 4 MG/ML CARTRIDGE IVPUSH (23:49)
[2021-09-11] VITALS (9 sets, daily range): BP systolic 141–166; BP diastolic 72–86; PULSE 69–87; RESP 16–20; TEMP 36.6–37.2; O2SAT 97–100
[2021-09-11] MEDS: Piperacillin Sodium/Tazobactam 3.375 GM in 0.9 % Sodium Chloride 50 ML IV ×4 (02:49→21:00)
[2021-09-11] MEDS: vancomycin HCL 1,500 MG in 0.9 % Sodium Chloride 500 ML 333.33 MG IV ×2 (04:46→18:03)
[2021-09-11 06:48] LABS: Hematocrit 31.8 % (42.0-52.0); Hemoglobin 10.6 g/dl (14.0-18.0); Mean Corpuscular HGB Conc 33.3 g/dl (31.0-36.0); Mean Corpuscular Hemoglobin 25.8 pg (27.0-33.0); Mean Corpuscular Volume 77.4 fL (80.0-98.0); Mean Platelet Volume 11.8 fL (9.4-12.4); Platelet Count 178 X10*3/uL (160-400); Red Blood Count 4.11 X10*6/uL (4.60-5.80); Red Cell Distribution Width 13.6 % (11.0-16.0); White Blood Count 8.5 X10*3/uL (4.8-10.8)
[2021-09-11 07:23] LABS: Anion Gap 13 (12-20); Blood Urea Nitrogen 18 mg/dL (9-16); Carbon Dioxide 22 mmol/L (22-29); Chloride 104 mmol/L (96-108); Creatinine Clr Calc Pharmacy 77.9; Estimated Glomerular Filt Rate 56; Glucose Fasting 210 mg/dL (60-99); Potassium 4.5 mmol/L (3.3-5.1); Sodium 134 mmol/L (135-145)
[2021-09-11 07:43] LABS: Glucose, Whole Blood 198 mg/dL (60-115)
--- NOTE | 2021-09-11 09:26 | P.PNIM_ITS ---
Subjective Subjective Date of Service: 09/11/21 Interval History: cc: rle pain and swelling interval history: improving Cardiovascular Cardiovascular: Reports no additional cardiovascular complaints Respiratory Respiratory: Reports no additional respiratory complaints Physical Exam Vital Signs: Vital Signs: Last Vital Signs Temp 98.5 F 09/11/21 07:28 Pulse 79 09/11/21 07:28 Resp 18 09/11/21 07:28 BP 141/76 H 09/11/21 07:28 Pulse Ox 97 09/11/21 07:28 O2 Del Method 09/11/21 07:28 BMI result Body Mass Index 31.9 General: AO X 3, no acute distress Resp: CTA bilateral, no accessory muscles used CVS: S1,S2,RRR GI: soft, non tender, non distended Neuro: motor grossly intact, alert Psych: appropriate affect, appropriate insight rle edema, ulcer Objective Data Active Medications Acetaminophen (Acetaminophen 325 Mg Tablet) 650 mg PO Q6H PRN PRN Reason: Pain, Mild (Pain Scale 1-3) Last Admin: 09/08/21 08:26 Dose: 650 mg Documented By: LAURA Aspirin (Aspirin Enteric Coated 81 Mg Tablet.Dr) 81 mg PO DAILY [facility] Clonidine HCl (Clonidine Hcl 0.1 Mg Tablet) 0.1 mg PO BID [facility]; Protocol Last Admin: 09/10/21 21:13 Dose: 0.1 mg Documented By: BRIAN Clopidogrel Bisulfate (Clopidogrel Bisulfate 75 Mg Tablet) 75 mg PO DAILY [facility] Dextrose (Dextrose 50 % 25 Gm/50 Ml Syringe) 25 gm IVPUSH Q15M PRN; Protocol PRN Reason: per Hypoglycemia Standing Ord. Enoxaparin Sodium (Enoxaparin Sodium 40 Mg/0.4 Ml Syringe) 40 mg SUBCUT DAILY [facility] Glucose (Glucose Gel 15 Gm Gel..Gram.) 15 gm PO Q15M PRN; Protocol PRN Reason: per Hypoglycemia Standing Ord. Piperacillin Sod/Tazobactam (Sod 3.375 gm/ Sodium Chloride) 50 mls @ 100 mls/hr IV Q6H [facility] Last Infusion: 09/11/21 03:26 Dose: 0 mls/hr Documented By: JOHN Sodium Chloride (Ns) 1,000 mls @ 100 mls/hr IVCONT .Q10H [facility] Last Infusion: 09/11/21 06:41 Dose: 100 mls/hr Documented By: JOHN Vancomycin HCl 1,500 mg/ (Sodium Chloride) 500 mls @ 333.333 mls/hr IV Q12H [facility] Last Infusion: 09/11/21 06:40 Dose: 0 mls/hr Documented By: JOHN Insulin Glargine (Insulin Glargine,Hum.Rec.Anlog 100 Unit/Ml 10 Ml Vial) 20 unit SUBCUT BID [facility] Last Admin: 09/10/21 21:12 Dose: 20 unit Documented By: BRIAN Insulin Human Lispro (Insulin Lispro 100 Unit/Ml 3 Ml Vial) 0 unit SUBCUT QIDACHS [facility]; Protocol Last Admin: 09/10/21 21:12 Dose: 8 unit Documented By: BRIAN Insulin Human Lispro (Insulin Lispro 100 Unit/Ml 3 Ml Vial) 3 unit SUBCUT QIDACHS [facility] Last Admin: 09/10/21 21:14 Dose: 3 unit Documented By: BRIAN Lisinopril (Lisinopril 10 Mg Tablet) 10 mg PO DAILY [facility]; Protocol Last Admin: 09/10/21 12:27 Dose: 10 mg Documented By: NARENDRA Morphine Sulfate (Morphine Sulfate 4 Mg/Ml Cartridge) 4 mg IVPUSH Q2H PRN; Protocol PRN Reason: Pain, Severe (Pain Scale 7-10) Last Admin: 09/10/21 23:49 Dose: 4 mg Documented By: JOHN Oxcarbazepine (Oxcarbazepine 300 Mg Tablet) 300 mg PO BEDTIME [facility] Last Admin: 09/10/21 21:15 Dose: 300 mg Documented By: BRIAN Oxycodone HCl (Oxycodone Hcl Immed Release 5 Mg Tablet) 5 mg PO Q6H PRN PRN Reason: moderate pain Last Admin: 09/10/21 21:14 Dose: 5 mg Documented By: BRIAN Pharmacy Consult (Consult Rx Perform Med Rec) 1 each MISCELLANE ONCE PRN PRN Reason: Consult order Pharmacy Consult (Consult Rx Vancomycin Dosing) 1 each MISCELLANE DAILY PRN PRN Reason: Consult order Risperidone (Risperidone 2 Mg Tablet) 2 mg PO BID [facility] Last Admin: 09/10/21 21:15 Dose: 2 mg Documented By: BRIAN Sodium Chloride (0.9 % Sodium Chloride Flush 3 Ml Syringe) 3 ml IVFLUSH QSHIFT [facility] Last Admin: 09/11/21 09:13 Dose: Not Given Documented By: MASOOD Non-Admin Reason: IV Running Labs CBC & Chem 7: 09/11/21 05:52 09/11/21 05:52 Labs: Laboratory Results - last 24 hr 09/10/21 09/10/21 09/10/21 12:06 15:09 16:23 MCV MCH MCHC RDW Plt Count MPV Absolute Nucleated RBC Nucleated RBC % (auto) Anion Gap Estim Creat Clear Calc Estimated GFR POC Glucose 295 H 210 H Fasting Glucose Calcium Vancomycin Trough 14.4 09/10/21 09/11/21 09/11/21 20:50 05:52 05:52 MCV 77.4 L MCH 25.8 L MCHC 33.3 RDW 13.6 Plt Count 178 MPV 11.8 Absolute Nucleated RBC 0.000 Nucleated RBC % (auto) 0.0 Anion Gap 13 Estim Creat Clear Calc 77.9 Estimated GFR 56 POC Glucose 302 H Fasting Glucose 210 H Calcium 8.0 L D Vancomycin Trough 09/11/21 07:27 MCV MCH MCHC RDW Plt Count MPV Absolute Nucleated RBC Nucleated RBC % (auto) Anion Gap Estim Creat Clear Calc Estimated GFR POC Glucose 198 H Fasting Glucose Calcium Vancomycin Trough Assessment and Plan (1) Osteomyelitis: Status: Acute Plan 51M presented with nonhealing DFU Right lower extremity diabetic foot ulcer/osteomyelitis Duplex negative for DVT Continue vancomycin and Zosyn, monitor trough, bmp s/p angiogram, angioplasty 09/10/21, no plans for amputation for now, will reque st ID eval dapl monitor bmp Diabetes with hyperglycemia Basal bolus insulin, monitor glucose Hypertension lisinopril schizoaffective disorder risperdal, clonidine History of hepatitis C Patient reports treatment in [place] OBEY resolved, monitor Obesity Weight loss recommended DVT prophylaxis with lovenox Full code reason for continued hospitalization:iv abx for DFU Quality Stroke Does the patient have a stroke diagnosis?: No VTE Prior VTE?: No VTE Risk Level:: Medical - moderate - high VTE Device Contraindication: Treatment Not Indicated VTE Drug Contraindication: N/A - Med Ordered
[2021-09-11] MEDS: Insulin Lispro 100 UNIT/ML 3 ML VIAL SUBCUT ×8 (09:37→20:58)
[2021-09-11] MEDS: Insulin Glargine,Hum.rec.anlog 100 UNIT/ML 10 ML VIAL 20 UNIT SUBCUT ×2 (09:38→20:56)
[2021-09-11] MEDS: Enoxaparin Sodium 40 MG/0.4 ML SYRINGE SUBCUT (09:38)
[2021-09-11] MEDS: Aspirin Enteric Coated 81 MG TABLET.DR PO (09:39)
[2021-09-11] MEDS: risperiDONE 2 MG TABLET PO ×2 (09:39→20:56)
[2021-09-11] MEDS: lisinopriL 10 MG TABLET PO (09:40)
[2021-09-11] MEDS: Clopidogrel Bisulfate 75 MG TABLET PO (09:40)
[2021-09-11] MEDS: cloNIDine HCL 0.1 MG TABLET PO ×2 (09:41→20:55)
--- NOTE | 2021-09-11 11:53 | HO.VASCPN ---
Subjective Subjective Date of Service: 09/11/21 Patient reports: no new complaints and feels better Interval history: Patient seen and examined. Postop day 1 status post right lower extremity endovascular intervention with plasty of anterior tibial and posterior tibial arteries. He reports that the right leg is feeling significantly better. The numbness of the foot has decreased. He now presents for follow-up regarding nonhealing ulcer of the right lateral foot. Physical Exam Vital Signs: Vital Signs: Last Vital Signs Temp 98.5 F 09/11/21 11:26 Pulse 80 09/11/21 11:26 Resp 18 09/11/21 11:26 BP 166/84 H 09/11/21 11:26 Pulse Ox 99 09/11/21 11:26 O2 Del Method 09/11/21 11:26 BMI result Body Mass Index 31.9 Const: General: cooperative, healthy appearing and no acute distress Orientation/consciousness: oriented to person, oriented to place and oriented to time HEENT: Head: Yes normal to inspection Neck: Carotids: no bruits Chest: Chest palpation & inspection: normal inspection of the chest Resp: Effort & Inspection: normal respiratory effort and able to speak in complete sentences Auscultation: clear to auscultation bilaterally Cardio: Rate: regular rate Heart sounds: S1 normal heart sound present and S2 normal heart sound present GI: Inspection: Yes normal to inspection Skin: General skin exam: no rashes or lesions noted Wounds: wounds noted (Right lateral foot ulcer) Neuro: General: oriented to person, oriented to place, oriented to time and CN's II-XI intact bilaterally Extrem: General: Yes normal to inspection, Yes full ROM and Yes no clubbing, cyanosis or edema Psych: Appearance: grossly normal and well kempt Speech and movement: Normal speech and movement present Affect: normal affect Progress Note: A&P Assessment and plan (1) PAD (peripheral artery disease): Status: Acute Assessment and Plan: In short patient is doing well from his endovascular intervention. He will required continued use of aspirin and Plavix for 6 months time. He has this nonhealing right 5th toe ulcer on the lateral aspect. I would like to give it a chance of conservative management to heal as he is only 51 years of age. We will continue with local wound care for now. He is pending Infectious Disease consult. Thank you for allowing us to assist in his care. Time Spent With Patient Time: Total time spent is greater than 50% in coordination of care (as documented) at patient's floor/unit and/or counseling patient: Procedures Date of Service Date of Service: 09/11/21 Quality Stroke Does the patient have a stroke diagnosis?: No VTE Prior VTE?: No VTE Risk Level:: Medical - moderate - high VTE Device Contraindication: Treatment Not Indicated VTE Drug Contraindication: N/A - Med Ordered
[2021-09-11 11:56] LABS: Glucose, Whole Blood 289 mg/dL (60-115)
[2021-09-11] MEDS: oxyCODONE HCl Immed Release 5 MG TABLET PO ×2 (12:45→21:05)
[2021-09-11] MEDS: 0.9 % Sodium Chloride 1,000 ML 100 ML IVCONT ×2 (12:46→23:08)
--- NOTE | 2021-09-11 15:02 | P.CNID_ITS ---
History of Present Illness Data of Consult Service Date: 09/11/21 Requesting physician: Serafin Carmichael Primary Care Provider: None Physician HPI Reason for consult: left fifth toe osteomyelitis,fracture He presents with worsening redness and swelling fifth toe area. He has received three weeks IV antibiotics in [place] for osteomyelitis and one week oral here. He has osteomyelitis and fracture left fifth digit. He has seen Vascular and endovascular intervention. He has no fever or chills. Review of Systems Review of Systems: Yes all other systems are reviewed and are negative [facility] Past Medical History Medical History Diabetes HCV (hepatitis C virus) Hypertension Schizoaffective disorder Family History Family History Father Diabetes mellitus Family history: reviewed and not pertinent Social History Social History Household Members: None and Other Household Members Other:: Friend Housing: Apartment Do you presently have visiting nurse or other home services: No Alcohol intake: never Patient Tobacco Use Status: Former Tobacco user Quit Date: 08/07/21 service: No Current occupational status: unemployed Meds Allergies Allergy/AdvReac Type Severity Reaction Status Date / Time No Known Allergies Allergy Verified 09/06/21 14:24 Active Medications: Current Medications Acetaminophen (Acetaminophen 325 Mg Tablet) 650 mg PO Q6H PRN PRN Reason: Pain, Mild (Pain Scale 1-3) Last Admin: 09/08/21 08:26 Dose: 650 mg Aspirin (Aspirin Enteric Coated 81 Mg Tablet.) 81 mg PO DAILY [facility] Last Admin: 09/11/21 09:39 Dose: 81 mg Clonidine HCl (Clonidine Hcl 0.1 Mg Tablet) 0.1 mg PO BID [facility]; Protocol Last Admin: 09/11/21 09:41 Dose: 0.1 mg Clopidogrel Bisulfate (Clopidogrel Bisulfate 75 Mg Tablet) 75 mg PO DAILY [facility] Last Admin: 09/11/21 09:40 Dose: 75 mg Dextrose (Dextrose 50 % 25 Gm/50 Ml Syringe) 25 gm IVPUSH Q15M PRN; Protocol PRN Reason: per Hypoglycemia Standing Ord. Enoxaparin Sodium (Enoxaparin Sodium 40 Mg/0.4 Ml Syringe) 40 mg SUBCUT DAILY [facility] Last Admin: 09/11/21 09:38 Dose: 40 mg Glucose (Glucose Gel 15 Gm Gel..Gram.) 15 gm PO Q15M PRN; Protocol PRN Reason: per Hypoglycemia Standing Ord. Piperacillin Sod/Tazobactam (Sod 3.375 gm/ Sodium Chloride) 50 mls @ 100 mls/hr IV Q6H [facility] Last Infusion: 09/11/21 10:32 Dose: Infused Sodium Chloride (Ns) 1,000 mls @ 100 mls/hr IVCONT .Q10H [facility] Last Admin: 09/11/21 12:46 Dose: 100 mls/hr Vancomycin HCl 1,500 mg/ (Sodium Chloride) 500 mls @ 333.333 mls/hr IV Q12H [facility] Last Infusion: 09/11/21 06:40 Dose: Infused Insulin Glargine (Insulin Glargine,Hum.Rec.Anlog 100 Unit/Ml 10 Ml Vial) 20 unit SUBCUT BID [facility] Last Admin: 09/11/21 09:38 Dose: 20 unit Insulin Human Lispro (Insulin Lispro 100 Unit/Ml 3 Ml Vial) 0 unit SUBCUT QIDACHS [facility]; Protocol Last Admin: 09/11/21 12:44 Dose: 6 unit Insulin Human Lispro (Insulin Lispro 100 Unit/Ml 3 Ml Vial) 3 unit SUBCUT QIDACHS [facility] Last Admin: 09/11/21 12:45 Dose: 3 unit Lisinopril (Lisinopril 10 Mg Tablet) 10 mg PO DAILY [facility]; Protocol Last Admin: 09/11/21 09:40 Dose: 10 mg Morphine Sulfate (Morphine Sulfate 4 Mg/Ml Cartridge) 4 mg IVPUSH Q2H PRN; Protocol PRN Reason: Pain, Severe (Pain Scale 7-10) Last Admin: 09/10/21 23:49 Dose: 4 mg Oxcarbazepine (Oxcarbazepine 300 Mg Tablet) 300 mg PO BEDTIME [facility] Last Admin: 09/10/21 21:15 Dose: 300 mg Oxycodone HCl (Oxycodone Hcl Immed Release 5 Mg Tablet) 5 mg PO Q6H PRN PRN Reason: moderate pain Last Admin: 09/11/21 12:45 Dose: 5 mg Pharmacy Consult (Consult Rx Perform Med Rec) 1 each MISCELLANE ONCE PRN PRN Reason: Consult order Pharmacy Consult (Consult Rx Vancomycin Dosing) 1 each MISCELLANE DAILY PRN PRN Reason: Consult order Risperidone (Risperidone 2 Mg Tablet) 2 mg PO BID [facility] Last Admin: 09/11/21 09:39 Dose: 2 mg Sodium Chloride (0.9 % Sodium Chloride Flush 3 Ml Syringe) 3 ml IVFLUSH QSHIFT [facility] Last Admin: 09/11/21 09:13 Dose: Not Given Home Medications Medication Instructions Recorded Confirmed Last Taken Type clonidine HCl 0.1 mg tablet 0.1 mg PO BID 09/06/21 09/06/21 Unknown History insulin human U-100 NPH-regulr 45 unit subcut QAM 09/06/21 09/06/21 Unknown History 70-30 mix 100 unit/mL subcutaneous susp (Humulin 70/30 U-100 Insulin) insulin human U-100 NPH-regulr 50 unit subcut DAILY@1700 09/06/21 09/06/21 Unknown History 70-30 mix 100 unit/mL subcutaneous susp (Humulin 70/30 U-100 Insulin) lisinopril 10 mg tablet 10 mg PO DAILY 09/06/21 09/06/21 Unknown History oxcarbazepine 300 mg tablet 300 mg PO BEDTIME 09/06/21 09/06/21 Unknown History risperidone 2 mg tablet (Risperdal) 2 mg PO BID 09/06/21 09/06/21 Unknown History Physical Exam Vital Signs: Vital Signs: Last Vital Signs Temp 98.5 F 09/11/21 11:26 Pulse 80 09/11/21 11:26 Resp 09/11/21 11:26 BP 166/84 H 09/11/21 11:26 Pulse Ox 99 09/11/21 11:26 O2 Del Method 09/11/21 11:26 BMI result Body Mass Index 31.9 HEENT: Head: Yes normal to inspection Mouth: Normal oral and palatal mucosa present Eyes: Pupils: Equal, round and reactive pupils present Resp: Effort & Inspection: normal respiratory effort Cardio: Rate: regular rate Rhythm: regular rhythm GI: Inspection: Yes normal to inspection Neuro: Cranial nerves: Yes Equal, round and reactive pupils present Extrem: Other: fifth toe area swollen and reddened Vital Signs and Narrative: Vital Signs: Last Vital Signs Temp 98.5 F 09/11/21 11:26 Pulse 80 09/11/21 11:26 Resp 18 09/11/21 11:26 BP 166/84 H 09/11/21 11:26 Pulse Ox 99 09/11/21 11:26 O2 Del Method 09/11/21 11:26 BMI result Body Mass Index 31.9 HENMT: Head: Yes normal to inspection Mouth: Normal oral and palatal mucosa present Eyes: Pupils: Equal, round and reactive pupils present Resp: Effort & Inspection: normal respiratory effort Cardio: Rate: regular rate Rhythm: regular rhythm GI: Inspection: Yes normal to inspection Neuro: Cranial nerves: Yes Equal, round and reactive pupils present Vital Signs and Narrative: Vital Signs: Last Vital Signs Temp 98.5 F 09/11/21 11:26 Pulse 80 09/11/21 11:26 Resp 18 09/11/21 11:26 BP 166/84 H 09/11/21 11:26 Pulse Ox 99 09/11/21 11:26 O2 Del Method 09/11/21 11:26 BMI result Body Mass Index 31.9 HEENT: Head: Yes normal to inspection Mouth: Normal oral and palatal mucosa present Eyes: Pupils: Equal, round and reactive pupils present Resp: Effort & Inspection: normal respiratory effort Cardio: Rate: regular rate Rhythm: regular rhythm GI: Inspection: Yes normal to inspection Neuro: Cranial nerves: Yes Equal, round and reactive pupils present Vital Signs: Vital Signs: Vital Signs - 24 hr 09/10/21 16:17 09/10/21 20:00 09/10/21 23:28 Temperature 98.4 F 98.9 F 99.2 F Pulse Rate 73 93 88 Respiratory Rate 16 18 18 Blood Pressure 155/83 H 150/67 H 129/66 Pulse Oximetry 98 99 96 Oxygen Delivery Me thod Room Air Room Air Room Air 09/11/21 00:00 09/11/21 03:56 09/11/21 04:00 Temperature 98.8 F Pulse Rate 86 Respiratory Rate 18 17 18 Blood Pressure 149/74 H Pulse Oximetry 98 Oxygen Delivery Me thod Room Air 09/11/21 07:28 09/11/21 11:26 Temperature 98.5 F 98.5 F Pulse Rate 79 80 Respiratory Rate 18 18 Blood Pressure 141/76 H 166/84 H Pulse Oximetry 97 99 Oxygen Delivery Me thod Room Air Room Air BMI result Body Mass Index 31.9 HENMT: Head: Yes normal to inspection Mouth: Normal oral and palatal mucosa present Eyes: Pupils: Equal, round and reactive pupils present Resp: Effort & Inspection: normal respiratory effort Cardio: Rate: regular rate Rhythm: regular rhythm GI: Inspection: Yes normal to inspection Neuro: Cranial nerves: Yes Equal, round and reactive pupils present Results Labs CBC & Chem 7: 09/11/21 05:52 09/11/21 05:52 Labs: Short CBC 09/11/21 Range/Units 05:52 WBC 8.5 (4.8-10.8) X10*3/uL Hgb 10.6 L (14.0-18.0) g/dl Hct 31.8 L (42.0-52.0) % Plt Count 178 (160-400) X10*3/uL BMP 09/11/21 05:52 Sodium 134 L Potassium 4.5 Chloride 104 Carbon Dioxide 22 BUN 18 H Creatinine 1.35 Calcium 8.0 L D Microbiology Microbiology Results: Microbiology 09/06/21 15:37 Blood - Venous Blood Culture - Preliminary No growth after 48 hours. 09/06/21 15:36 Blood - Venous Blood Culture - Preliminary No growth after 48 hours. Assessment and Plan (1) PAD (peripheral artery disease): Status: Acute (2) Osteomyelitis: Status: Acute There is concern over infection chronic foot. There is already fracture so six weeks IV antibiotics not likely to heal area Plan Can try Ertapenem six weeks since patient declines amputation. Success is usually limited with fracture though.
[2021-09-11 15:41] LABS: Vancomycin Trough 15.4 mcg/mL (10.0-20.0)
[2021-09-11 15:53] LABS: Glucose, Whole Blood 239 mg/dL (60-115)
[2021-09-11] MEDS: Acetaminophen 325 MG TABLET 650 MG PO (16:45)
[2021-09-11 19:21] LABS: Glucose, Whole Blood 161 mg/dL (60-115)
[2021-09-11] MEDS: OXcarbazepine 300 MG TABLET PO (20:56)
[2021-09-12] VITALS (7 sets, daily range): BP systolic 149–176; BP diastolic 68–82; PULSE 72–84; RESP 18–20; TEMP 36.3–37.1; O2SAT 96–100
[2021-09-12] MEDS: Piperacillin Sodium/Tazobactam 3.375 GM in 0.9 % Sodium Chloride 50 ML IV ×2 (05:03→08:43)
[2021-09-12] MEDS: vancomycin HCL 1,500 MG in 0.9 % Sodium Chloride 500 ML 333.33 MG IV (05:37)
[2021-09-12 06:26] LABS: Hematocrit 30.7 % (42.0-52.0); Hemoglobin 10.2 g/dl (14.0-18.0); Mean Corpuscular HGB Conc 33.2 g/dl (31.0-36.0); Mean Corpuscular Hemoglobin 25.8 pg (27.0-33.0); Mean Corpuscular Volume 77.5 fL (80.0-98.0); Mean Platelet Volume 11.8 fL (9.4-12.4); Platelet Count 164 X10*3/uL (160-400); Red Blood Count 3.96 X10*6/uL (4.60-5.80); Red Cell Distribution Width 13.7 % (11.0-16.0); White Blood Count 6.1 X10*3/uL (4.8-10.8)
[2021-09-12 07:03] LABS: Anion Gap 10 (12-20); Blood Urea Nitrogen 19 mg/dL (9-16); Calcium 8.1 mg/dL (8.4-10.2); Carbon Dioxide 23 mmol/L (22-29); Chloride 104 mmol/L (96-108); Creatinine Clr Calc Pharmacy 85.5; Estimated Glomerular Filt Rate > 60; Glucose Fasting 284 mg/dL (60-99); Potassium 4.4 mmol/L (3.3-5.1); Sodium 133 mmol/L (135-145)
[2021-09-12 07:48] LABS: Glucose, Whole Blood 203 mg/dL (60-115)
[2021-09-12] MEDS: Insulin Glargine,Hum.rec.anlog 100 UNIT/ML 10 ML VIAL 20 UNIT SUBCUT ×2 (08:37→21:07)
[2021-09-12] MEDS: Insulin Lispro 100 UNIT/ML 3 ML VIAL SUBCUT ×8 (08:38→21:23)
[2021-09-12] MEDS: Aspirin Enteric Coated 81 MG TABLET.DR PO (08:40)
[2021-09-12] MEDS: Enoxaparin Sodium 40 MG/0.4 ML SYRINGE SUBCUT (08:40)
[2021-09-12] MEDS: Clopidogrel Bisulfate 75 MG TABLET PO (08:40)
[2021-09-12] MEDS: lisinopriL 10 MG TABLET PO (08:40)
[2021-09-12] MEDS: cloNIDine HCL 0.1 MG TABLET PO ×2 (08:40→21:08)
[2021-09-12] MEDS: 0.9 % Sodium Chloride Flush 3 ML SYRINGE IVFLUSH (08:43)
[2021-09-12] MEDS: oxyCODONE HCl Immed Release 5 MG TABLET PO ×2 (08:47→19:52)
[2021-09-12] MEDS: risperiDONE 2 MG TABLET PO ×2 (08:49→21:07)
--- NOTE | 2021-09-12 09:50 | MHC.CM.PN ---
CM DISCUSSED CASE W/HOSPITALIST WHO REPORTS PT WILL NEED 6WKS IV ERTAPENEM, CM CONTACTED PT'S BROTHER/HCP ARNOLDO WHO PT LIVES WITH, ARNOLDO HANDED PHONE OFF TO HIS AMY [phone] WHO IS ARABIC SPEAKING, AMY REPORTS PT HAS NO HX OF SA OR IV SA, AMY ALSO REPORTS PT LIVES W/HER AND PT'S BROTHER ARNOLDO AND SHE CARES FOR [place] W/[facility] AND IS CONFIDENT SHE CAN ASSIST/DO IV ABX ADMIN FOR PT, REFERRAL SENT TO [place] PT/FAMILY HAS NO PREFERENCE. AMY REPORTS PT NOTACTIVE W/PCP AT THIS TIME HOWEVER WAS AT [facility], CM WILL FOLLOW UP W/[facility] FOR NEW APPT. D/C PLAN: HOME W/6WKS IV ABX, FAMILY FOR TRANSPORT
[2021-09-12 12:02] LABS: Glucose, Whole Blood 158 mg/dL (60-115)
--- NOTE | 2021-09-12 12:05 | HO.PICC ---
PICC Line Insertion [facility] Diagnosis: OSTEOMYELITIS Indication: RETIREMENT IV ANTIBIOTICS Pertinent Labs: REVIEWED Technique: Following informed consent including risks, benefits and alternatives and using sterile technique including cap and mask, sterile gown, glove and drape, the RIGHT arm was prepped and draped in the usual sterile fashion of full barrier technique with CHG. Following completion of [place] Protocol the skin and soft tissues were anesthetized with 1% Lidocaine plain. Using ultrasound guidance, BASILIC vein access was obtained IN SINGLE ATTEMPT BY THIS RN; x1 PRIOR UNSUCCESSFUL ATTEMPT BY RN KRUNAL Yang, SO TOTAL x2 ATTEMPTS. Over an 0.018 wire through peel-away sheath, a 4-TAJIK, SINGLE LUMEN, PASV PICC line was positioned. Catheter length is 46 CM internal length, 0 CM external length, for a total trimmed length of 46 CM. The procedure was performed in S-272. Tip verification was performed by Ko Butler with Sherlock 3CG. Tip located in SVC. Ultrasound was used to document vein patency and for needle entry. A formal ultrasound picture and cardiac rhythm strip was recorded. Vascular Scrap Collector has released the line for use and it is currently dressed with a StatLock, Tegaderm, and CHG disc. Verification has been performed for blood return and line patency. Arm Circumference: 36 CM Equipment: WeTag POWERPICC SOLO Catheter Type: SINGLE LUMEN, 4-TAJIK, PASV Lot #: [id number]
--- NOTE | 2021-09-12 12:57 | HO.PM.IMPN ---
Subjective Subjective Date of Service: 09/12/21 Interval History: the patient was seen and evaluated this morning Laying in bed, feels comfortable Denies any fever, chills or shortness of breath No reported other overnight events. Systemic review: No fever, chills or weakness No chest pain, palpitation No shortness of breath or coughing No abdominal pain, nausea or vomiting No urinary symptoms right lower extremity edema and ulcer Physical Exam Vital Signs: Vital Signs: Last Vital Signs Temp 98.1 F 09/12/21 12:00 Pulse 79 09/12/21 12:00 Resp 18 09/12/21 12:00 BP 161/75 H 09/12/21 12:00 Pulse Ox 99 09/12/21 12:00 O2 Del Method 09/12/21 12:00 BMI result Body Mass Index 31.9 Const: Other: Constitutional : Alert, oriented, not in distress Neck : Normal inspection, Supple Cardiovascular : RRR, no JVP, no lower extremity edema Respiratory : fair bilateral air entry, no crackles, wheezes or rhonchi Gastrointestinal: soft, lax, Normal bowel sounds, Non tender Skin : dry, right lower extremity trace edema and ulcer covered with dressing with swollen 5th toe Neurological : Alert & oriented x3, No focal deficit , CN 2-12 within normal Objective Data Active Medications Acetaminophen (Acetaminophen 325 Mg Tablet) 650 mg PO Q6H PRN PRN Reason: Pain, Mild (Pain Scale 1-3) Last Admin: 09/11/21 16:45 Dose: 650 mg Documented By: BRIAN Aspirin (Aspirin Enteric Coated 81 Mg Tablet.) 81 mg PO DAILY [facility] Last Admin: 09/12/21 08:40 Dose: 81 mg Documented By: NARENDRA Clonidine HCl (Clonidine Hcl 0.1 Mg Tablet) 0.1 mg PO BID [facility]; Protocol Last Admin: 09/12/21 08:40 Dose: 0.1 mg Documented By: NARENDRA Clopidogrel Bisulfate (Clopidogrel Bisulfate 75 Mg Tablet) 75 mg PO DAILY [facility] Last Admin: 09/12/21 08:40 Dose: 75 mg Documented By: NARENDRA Dextrose (Dextrose 50 % 25 Gm/50 Ml Syringe) 25 gm IVPUSH Q15M PRN; Protocol PRN Reason: per Hypoglycemia Standing Ord. Enoxaparin Sodium (Enoxaparin Sodium 40 Mg/0.4 Ml Syringe) 40 mg SUBCUT DAILY [facility] Last Admin: 09/12/21 08:40 Dose: 40 mg Documented By: NARENDRA Glucose (Glucose Gel 15 Gm Gel..Gram.) 15 gm PO Q15M PRN; Protocol PRN Reason: per Hypoglycemia Standing Ord. Meropenem 1 gm/ Sodium (Chloride) 100 mls @ 200 mls/hr IV Q8H [facility] Insulin Glargine (Insulin Glargine,Hum.Rec.Anlog 100 Unit/Ml 10 Ml Vial) 20 unit SUBCUT BID [facility] Last Admin: 09/12/21 08:37 Dose: 20 unit Documented By: NARENDRA Insulin Human Lispro (Insulin Lispro 100 Unit/Ml 3 Ml Vial) 0 unit SUBCUT QIDACHS [facility]; Protocol Last Admin: 09/12/21 12:18 Dose: 2 unit Documented By: NARENDRA Insulin Human Lispro (Insulin Lispro 100 Unit/Ml 3 Ml Vial) 3 unit SUBCUT QIDACHS [facility] Last Admin: 09/12/21 12:18 Dose: 3 unit Documented By: NARENDRA Lisinopril (Lisinopril 10 Mg Tablet) 10 mg PO DAILY [facility]; Protocol Last Admin: 09/12/21 08:40 Dose: 10 mg Documented By: NARENDRA Morphine Sulfate (Morphine Sulfate 4 Mg/Ml Cartridge) 4 mg IVPUSH Q2H PRN; Protocol PRN Reason: Pain, Severe (Pain Scale 7-10) Last Admin: 09/10/21 23:49 Dose: 4 mg Documented By: JOHN Oxcarbazepine (Oxcarbazepine 300 Mg Tablet) 300 mg PO BEDTIME [facility] Last Admin: 09/11/21 20:56 Dose: 300 mg Documented By: BRIAN Oxycodone HCl (Oxycodone Hcl Immed Release 5 Mg Tablet) 5 mg PO Q6H PRN PRN Reason: moderate pain Last Admin: 09/12/21 08:47 Dose: 5 mg Documented By: NARENDRA Pharmacy Consult (Consult Rx Perform Med Rec) 1 each MISCELLANE ONCE PRN PRN Reason: Consult order Pharmacy Consult (Consult Rx Vancomycin Dosing) 1 each MISCELLANE DAILY PRN PRN Reason: Consult order Risperidone (Risperidone 2 Mg Tablet) 2 mg PO BID [facility] Last Admin: 09/12/21 08:49 Dose: 2 mg Documented By: NARENDRA Sodium Chloride (0.9 % Sodium Chloride Flush 3 Ml Syringe) 3 ml IVFLUSH QSHIFT [facility] Last Admin: 09/12/21 08:43 Dose: 3 ml Documented By: NARENDRA Sodium Chloride (0.9 % Sodium Chloride Flush 10 Ml Syringe) 5 ml IVFLUSH TID [facility] Labs CBC & Chem 7: 09/12/21 05:31 09/12/21 05:31 Labs: Laboratory Results - last 24 hr 09/11/21 09/11/21 09/11/21 15:05 15:07 19:08 MCV MCH MCHC RDW Plt Count MPV Absolute Nucleated RBC Nucleated RBC % (auto) Anion Gap Estim Creat Clear Calc Estimated GFR POC Glucose 239 H 161 H Fasting Glucose Calcium Vancomycin Trough 15.4 09/12/21 09/12/21 09/12/21 05:31 05:31 07:43 MCV 77.5 L MCH 25.8 L MCHC 33.2 RDW 13.7 Plt Count 164 MPV 11.8 Absolute Nucleated RBC 0.000 Nucleated RBC % (auto) 0.0 Anion Gap 10 L Estim Creat Clear Calc 85.5 Estimated GFR > 60 POC Glucose 203 H Fasting Glucose 284 H D Calcium 8.1 L Vancomycin Trough 09/12/21 11:57 MCV MCH MCHC RDW Plt Count MPV Absolute Nucleated RBC Nucleated RBC % (auto) Anion Gap Estim Creat Clear Calc Estimated GFR POC Glucose 158 H Fasting Glucose Calcium Vancomycin Trough Microbiology Microbiology Results: Microbiology 09/06/21 15:37 Blood Culture - Final Blood - Venous No growth after 5 days. 09/06/21 15:36 Blood Culture - Final Blood - Venous No growth after 5 days. Assessment and Plan (1) Osteomyelitis: Status: Acute (2) PAD (peripheral artery disease): Status: Acute Plan 51M presented with nonhealing DFU Right lower extremity diabetic foot ulcer/osteomyelitis Duplex negative for DVT discontinue vancomycin and Zosyn start meropenem s/p angiogram, angioplasty 09/10/21, patient refuse amputation and would like to try IV antibiotics even after discussion as he knows he has lotions to rescue the toe id input appreciated, ertapenem for 6 weeks dapl monitor bmp Diabetes with hyperglycemia Basal bolus insulin, monitor glucose Hypertension lisinopril schizoaffective disorder risperdal, clonidine History of hepatitis C Patient reports treatment in [place] OBEY resolved, monitor Obesity Weight loss recommended DVT prophylaxis with lovenox Full code reason for continued hospitalization: pending PICC line placement and arrangements for IV antibiotics for DFU Quality Stroke Does the patient have a stroke diagnosis?: No VTE Prior VTE?: No VTE Risk Level:: Medical - moderate - high VTE Device Contraindication: Treatment Not Indicated VTE Drug Contraindication: N/A - Med Ordered
[2021-09-12] MEDS: 0.9 % Sodium Chloride Flush 10 ML SYRINGE 5 ML IVFLUSH ×2 (13:01→21:23)
--- NOTE | 2021-09-12 14:13 | MHC.CM.PN ---
ADITI MET W/LUIS LIAISON WHO IS REQUESTING WE ARRANGE PT HAVE WEEKLY DRESSING CHANGES AND LABS, WOUND CLINIC UNABLE TO SEE PT UNTIL 09/28 OR 09/29, ADITI ATTEMPTED TO OBTAIN 'S APPT AT [facility] WHERE PT WAS SEEN PREVIOUSLY W/JUNIOR OLIVIA THEY CANNOT SEE PT UNTIL OCTOBER FOR A NEW PT APPT, CM CONTACTED [facility] WHO CAN NOT SEE PT UNTIL , [place] OFFICE MAY BE ABLE TO SEE PT IN OCTOBER BUT NO SOONER, [facility] PT WILL NEED TO CHOSE A PLAN HE HAS NOT CHOSEN AT THIS TIME. ADITI WILL SEND REFERRAL TO [facility]ANCIAL [facility] W/AMANDA'S CONTACT INFO.
--- NOTE | 2021-09-12 15:21 | MHC.CM.PN ---
WOUND CLINIC WILL NOT TAKE PT W/OUT AN ACTIVE PCP. PT NEEDS TO CHOSE MH PLAN PRIOR TO FINDING NEW PCP VASCULAR OFFICE CAN NOT ACCOMODATE WEEKLY PICC LINE DRESSING CHANGES, RECOMMEND ID OFFICE, CM ATTEMPTED TO CONTACT ID OFFICE HOWEVER NO ANSWER. LIKELY PT MAY NEED STR, BLANKET REFERRAL TO BE PLACED
[2021-09-12 15:56] LABS: Vancomycin Trough 18.2 mcg/mL (10.0-20.0)
[2021-09-12 16:02] LABS: Glucose, Whole Blood 315 mg/dL (60-115)
--- NOTE | 2021-09-12 16:30 | PC.NURSE ---
P BP elevated 176/[address] Zamorano notified E will monitor,patient has no complaints
[2021-09-12 19:50] LABS: Glucose, Whole Blood 176 mg/dL (60-115)
[2021-09-12] MEDS: OXcarbazepine 300 MG TABLET PO (21:07)
[2021-09-13 04:00] VITALS: BP 158/81; PULSE 76; RESP 18; TEMP 36.5; O2SAT 98
[2021-09-13] MEDS: oxyCODONE HCl Immed Release 5 MG TABLET PO ×2 (04:07→17:10)
[2021-09-13 07:05] LABS: Creatinine Clr Calc Pharmacy 91.5; Estimated Glomerular Filt Rate > 60
[2021-09-13 07:22] VITALS: BP 162/92; PULSE 76; RESP 18; TEMP 36.3; O2SAT 100
[2021-09-13 07:24] LABS: Blood Urea Nitrogen 19 mg/dL (9-16); Creatinine Clr Calc Pharmacy 90.7; Estimated Glomerular Filt Rate > 60
[2021-09-13 07:37] LABS: Anion Gap 11 (12-20); Calcium 8.8 mg/dL (8.4-10.2); Carbon Dioxide 25 mmol/L (22-29); Chloride 102 mmol/L (96-108); Glucose Random 210 mg/dL (60-115); Potassium 4.5 mmol/L (3.3-5.1); Sodium 133 mmol/L (135-145)
[2021-09-13 07:51] LABS: Glucose, Whole Blood 173 mg/dL (60-115)
[2021-09-13] MEDS: Insulin Glargine,Hum.rec.anlog 100 UNIT/ML 10 ML VIAL 20 UNIT SUBCUT ×2 (08:13→20:01)
[2021-09-13] MEDS: Clopidogrel Bisulfate 75 MG TABLET PO (08:13)
[2021-09-13] MEDS: lisinopriL 10 MG TABLET PO ×2 (08:13→12:20)
[2021-09-13] MEDS: risperiDONE 2 MG TABLET PO ×2 (08:13→20:01)
[2021-09-13] MEDS: cloNIDine HCL 0.1 MG TABLET PO ×2 (08:13→20:00)
[2021-09-13] MEDS: Aspirin Enteric Coated 81 MG TABLET.DR PO (08:13)
[2021-09-13] MEDS: Insulin Lispro 100 UNIT/ML 3 ML VIAL SUBCUT ×8 (08:14→20:02)
[2021-09-13] MEDS: Enoxaparin Sodium 40 MG/0.4 ML SYRINGE SUBCUT (08:14)
[2021-09-13] MEDS: 0.9 % Sodium Chloride Flush 10 ML SYRINGE 5 ML IVFLUSH ×2 (08:17→17:02)
--- NOTE | 2021-09-13 09:56 | MHC.CM.PN ---
NURSE TECHNICAL TRAINING COORDINATOR NOTE ELECTRONIC MEEICAL RECORD REVIWED , SPOKE WITH THE HOSPITLAIT , DISCHARGE PLAN CHANGED OF YESTERDAY , REFERRAL HAD BEEN MADE OUT TO A HOME INFUSION COMPANY FOR IV ABX AND PATIENTS SISTER WAS WILLING TO OCOME IN AND LEARN THE IV ABX ADNINISTRATION ASN THE HOME IFUSION NURSE WOUD GO HOUSE TO THE HOUSE FOR REINFORCEMENT TEACGING , H (NO VNA PT DOES NOT HAVE PCP) THEN WE FOUND OUT THAT THE HOME INFUSION NURSES CAN NOT GO OUT FOR STRAIGHT MEDICARE OR STRAIGHT MEDICAIDE INS WOULD REWUIRE VNA . STR REFERRALS KAVITHA ACOSTA INOATED YESTERDAY ; RESPONSES; [facility], [facility], [facility] SENT HU THAT HE WOULD BE READY TODAY AWAIT RESPONSE [facility], [place], [facility], [facility] [place] ; [facility] , FIF[facility] [place], [facility] E/W. CARE FOR EXTENDED CARE AMHEREST, NO BED AVAILABILITY DISCHARGE PLAN SKILLED NURSIGN FACILTIY FOR REHAB FOR IV ABX VIA PIC LINE BED SEARCH IN PROCESS
[2021-09-13] MEDS: Ertapenem Sodium 1 GM in 0.9 % Sodium Chloride 50 ML IV (10:14)
[2021-09-13 11:26] VITALS: BP 185/98; PULSE 68; RESP 18; TEMP 36.6; O2SAT 100
[2021-09-13 11:43] LABS: Glucose, Whole Blood 210 mg/dL (60-115)
--- NOTE | 2021-09-13 11:45 | HO.PM.IMPN ---
Subjective Subjective Date of Service: 09/13/21 Interval History: the patient was seen and evaluated this morning Laying in bed, feels comfortable Denies any fever, chills or shortness of breath No reported other overnight events. Systemic review: No fever, chills or weakness No chest pain, palpitation No shortness of breath or coughing No abdominal pain, nausea or vomiting No urinary symptoms right lower extremity edema and ulcer Physical Exam Vital Signs: Vital Signs: Last Vital Signs Temp 97.8 F 09/13/21 11:26 Pulse 68 09/13/21 11:26 Resp 18 09/13/21 11:26 BP 185/98 H 09/13/21 11:26 Pulse Ox 100 09/13/21 11:26 O2 Del Method 09/13/21 11:26 BMI result Body Mass Index 31.9 Const: Other: Constitutional : Alert, oriented, not in distress Neck : Normal inspection, Supple Cardiovascular : RRR, no JVP, no lower extremity edema Respiratory : fair bilateral air entry, no crackles, wheezes or rhonchi Gastrointestinal: soft, lax, Normal bowel sounds, Non tender Skin : dry, right lower extremity trace edema and ulcer covered with dressing with swollen 5th toe Neurological : Alert & oriented x3, No focal deficit , CN 2-12 within normal Objective Data Active Medications Acetaminophen (Acetaminophen 325 Mg Tablet) 650 mg PO Q6H PRN PRN Reason: Pain, Mild (Pain Scale 1-3) Last Admin: 09/11/21 16:45 Dose: 650 mg Documented By: BRIAN Aspirin (Aspirin Enteric Coated 81 Mg Tablet.) 81 mg PO DAILY [facility] Last Admin: 09/13/21 08:13 Dose: 81 mg Documented By: NARENDRA Clonidine HCl (Clonidine Hcl 0.1 Mg Tablet) 0.1 mg PO BID [facility]; Protocol Last Admin: 09/13/21 08:13 Dose: 0.1 mg Documented By: NARENDRA Clopidogrel Bisulfate (Clopidogrel Bisulfate 75 Mg Tablet) 75 mg PO DAILY [facility] Last Admin: 09/13/21 08:13 Dose: 75 mg Documented By: NARENDRA Dextrose (Dextrose 50 % 25 Gm/50 Ml Syringe) 25 gm IVPUSH Q15M PRN; Protocol PRN Reason: per Hypoglycemia Standing Ord. Enoxaparin Sodium (Enoxaparin Sodium 40 Mg/0.4 Ml Syringe) 40 mg SUBCUT DAILY [facility] Last Admin: 09/13/21 08:14 Dose: 40 mg Documented By: NARENDRA Glucose (Glucose Gel 15 Gm Gel..Gram.) 15 gm PO Q15M PRN; Protocol PRN Reason: per Hypoglycemia Standing Ord. Insulin Glargine (Insulin Glargine,Hum.Rec.Anlog 100 Unit/Ml 10 Ml Vial) 20 unit SUBCUT BID [facility] Last Admin: 09/13/21 08:13 Dose: 20 unit Documented By: NARENDRA Insulin Human Lispro (Insulin Lispro 100 Unit/Ml 3 Ml Vial) 0 unit SUBCUT QIDACHS [facility]; Protocol Last Admin: 09/13/21 08:14 Dose: 2 unit Documented By: NARENDRA Insulin Human Lispro (Insulin Lispro 100 Unit/Ml 3 Ml Vial) 3 unit SUBCUT QIDACHS [facility] Last Admin: 09/13/21 08:14 Dose: 3 unit Documented By: NARENDRA Lisinopril (Lisinopril 10 Mg Tablet) 10 mg PO DAILY [facility]; Protocol Last Admin: 09/13/21 08:13 Dose: 10 mg Documented By: NARENDRA Morphine Sulfate (Morphine Sulfate 4 Mg/Ml Cartridge) 4 mg IVPUSH Q2H PRN; Protocol PRN Reason: Pain, Severe (Pain Scale 7-10) Last Admin: 09/10/21 23:49 Dose: 4 mg Documented By: JOHN Oxcarbazepine (Oxcarbazepine 300 Mg Tablet) 300 mg PO BEDTIME [facility] Last Admin: 09/12/21 21:07 Dose: 300 mg Documented By: BRIAN Oxycodone HCl (Oxycodone Hcl Immed Release 5 Mg Tablet) 5 mg PO Q6H PRN PRN Reason: moderate pain Last Admin: 09/13/21 04:07 Dose: 5 mg Documented By: JOHN Pharmacy Consult (Consult Rx Perform Med Rec) 1 each MISCELLANE ONCE PRN PRN Reason: Consult order Pharmacy Consult (Consult Rx Vancomycin Dosing) 1 each MISCELLANE DAILY PRN PRN Reason: Consult order Risperidone (Risperidone 2 Mg Tablet) 2 mg PO BID [facility] Last Admin: 09/13/21 08:13 Dose: 2 mg Documented By: NARENDRA Sodium Chloride (0.9 % Sodium Chloride Flush 3 Ml Syringe) 3 ml IVFLUSH QSHIFT [facility] Last Admin: 09/13/21 08:17 Dose: Not Given Documented By: NARENDRA Non-Admin Reason: No Access Sodium Chloride (0.9 % Sodium Chloride Flush 10 Ml Syringe) 5 ml IVFLUSH TID [facility] Last Admin: 09/13/21 08:17 Dose: 5 ml Documented By: NARENDRA Labs CBC & Chem 7: 09/12/21 05:31 09/13/21 06:12 Labs: Laboratory Results - last 24 hr 09/12/21 09/12/21 09/12/21 11:57 15:03 15:41 Anion Gap Estim Creat Clear Calc Estimated GFR POC Glucose 158 H 315 H Random Glucose Calcium Vancomycin Trough 18.2 09/12/21 09/13/21 09/13/21 19:35 06:12 06:12 Anion Gap 11 L Estim Creat Clear Calc 90.7 91.5 Estimated GFR > 60 > 60 POC Glucose 176 H Random Glucose 210 H D Calcium 8.8 D Vancomycin Trough 09/13/21 09/13/21 07:19 11:27 Anion Gap Estim Creat Clear Calc Estimated GFR POC Glucose 173 H 210 H Random Glucose Calcium Vancomycin Trough Assessment and Plan (1) PAD (peripheral artery disease): Status: Acute (2) Osteomyelitis: Status: Acute Plan 51M presented with nonhealing DFU Right lower extremity diabetic foot ulcer/osteomyelitis Duplex negative for DVT discontinue vancomycin and Zosyn start meropenem s/p angiogram, angioplasty 09/10/21, patient refuse amputation and would like to try IV antibiotics even after discussion as he knows he has lotions to rescue the toe id input appreciated, ertapenem for 6 weeks start ertapenem day 2 dual antiplatelet therapy monitor bmp Diabetes with hyperglycemia Basal bolus insulin, monitor glucose uncontrolled Hypertension lisinopril increased to 20 mg Start amlodipine 5 mg daily schizoaffective disorder risperdal, clonidine History of hepatitis C Patient reports treatment in [place] OBEY resolved, monitor Obesity Weight loss recommended DVT prophylaxis with lovenox Full code reason for continued hospitalization: pending placement and arrangements for IV antibiotics for DFU Quality Stroke Does the patient have a stroke diagnosis?: No VTE Prior VTE?: No VTE Risk Level:: Medical - moderate - high VTE Device Contraindication: Treatment Not Indicated VTE Drug Contraindication: N/A - Med Ordered
[2021-09-13] MEDS: amLODIPine Besylate 5 MG TABLET PO (12:21)
--- NOTE | 2021-09-13 14:30 | P.CDIC_ITS ---
CDI Concurrent Query Documentation Clarification: PHYSICIAN'S DOCUMENTATION REQUEST Date of Query: 09/13/21 1430 Patient Name: Raffi Sage Admit Date: 09/06/21 Dear Doctor, A review of the medical record indicates additional documentation may be needed. Please review below and update the documentation accordingly. Clinical Indicators: Documentation on 09/13/21 indicates Osteomyelitis. Risk Factors/Clinical Indicators/Treatments Per MD progress note 09/13/21: Right lower extremity diabetic foot ulcer/osteomyelitis Duplex negative for DVT discontinue vancomycin and Zosyn start meropenem Based on the above, please clarify in the Progress Notes further specificity regarding the type of Osteomyelitis. Also include specific site with laterality and known or suspected infectious agent: * Acute osteomyelitis * Acute hematogenous osteomyelitis * Subacute osteomyelitis * Chronic osteomyelitis * Chronic hemotogenous osteomyelitis * Chronic multifocal osteomyelitis * Chronic osteomyelitis with draining sinus * Osteomyelitis * Periostitis without osteomyelitis * Other (please specify) * Unable to determine Use of terms such as suspected, likely, concern for, or probable (associated with a specific diagnosis that is being evaluated, monitored, or treated as if it exists) are acceptable and can be coded in the inpatient setting, when documented at the time of discharge. Thank you, Mesha Teague RN Extension: [phone] Please use your independent medical judgment in providing your response. THIS QUERY IS PART OF THE PERMANENT MEDICAL RECORD Provider Response: Other Other Diagnosis: chronic osteomyelitis
[2021-09-13 15:01] VITALS: BP 170/84; PULSE 76; RESP 18; TEMP 36.6; O2SAT 99
[2021-09-13 15:48] LABS: Glucose, Whole Blood 220 mg/dL (60-115)
[2021-09-13] MEDS: 0.9 % Sodium Chloride Flush 3 ML SYRINGE IVFLUSH (17:01)
[2021-09-13 19:24] VITALS: BP 137/83; PULSE 96; RESP 18; TEMP 36.7; O2SAT 99
[2021-09-13 19:52] LABS: Glucose, Whole Blood 193 mg/dL (60-115)
[2021-09-13] MEDS: OXcarbazepine 300 MG TABLET PO (20:01)
[2021-09-13 23:55] VITALS: BP 129/68; PULSE 85; RESP 18; TEMP 37.4; O2SAT 98
[2021-09-14 04:00] VITALS: BP 159/72; PULSE 80; RESP 18; TEMP 36.6; O2SAT 99
[2021-09-14 06:40] LABS: Creatinine Clr Calc Pharmacy 92.3; Estimated Glomerular Filt Rate > 60
[2021-09-14 07:54] VITALS: BP 147/85; PULSE 83; RESP 18; TEMP 36.1; O2SAT 99
[2021-09-14 08:05] LABS: Glucose, Whole Blood 220 mg/dL (60-115)
[2021-09-14] MEDS: Ertapenem Sodium 1 GM in 0.9 % Sodium Chloride 50 ML IV (08:45)
[2021-09-14] MEDS: Enoxaparin Sodium 40 MG/0.4 ML SYRINGE SUBCUT (08:46)
[2021-09-14] MEDS: Insulin Glargine,Hum.rec.anlog 100 UNIT/ML 10 ML VIAL 20 UNIT SUBCUT (08:46)
[2021-09-14] MEDS: Insulin Lispro 100 UNIT/ML 3 ML VIAL SUBCUT ×4 (08:46→13:33)
[2021-09-14] MEDS: amLODIPine Besylate 5 MG TABLET PO (08:47)
[2021-09-14] MEDS: lisinopriL 20 MG TABLET PO (08:47)
[2021-09-14] MEDS: Aspirin Enteric Coated 81 MG TABLET.DR PO (08:47)
[2021-09-14] MEDS: risperiDONE 2 MG TABLET PO (08:47)
[2021-09-14] MEDS: Clopidogrel Bisulfate 75 MG TABLET PO (08:47)
[2021-09-14] MEDS: cloNIDine HCL 0.1 MG TABLET PO (08:47)
[2021-09-14] MEDS: 0.9 % Sodium Chloride Flush 3 ML SYRINGE IVFLUSH (08:48)
--- NOTE | 2021-09-14 08:49 | MHC.CM.PN ---
CASE DISCUSSED W/HOSPITALIST, PT WILL NEED TO COME IN TO [facility] FOR DAILY IV ABX D/T PT DECLINING STR, CM ATTEMPTED TO CONTACT PT'S SISTER IN LAW REYES AT 8:45AM [phone] TO DISCUSS PLAN., NO ANSWER, MESSAGE LEFT W/CM CONTACT NUMBER.
[2021-09-14] MEDS: 0.9 % Sodium Chloride Flush 10 ML SYRINGE 5 ML IVFLUSH (08:50)
--- NOTE | 2021-09-14 10:35 | P.PNVS_ITS ---
Subjective Subjective Date of Service: 09/14/21 Patient reports: no new complaints and feels better Interval history: Patient seen and examined. No significant events overnight. Appears to be doing relatively well. Continued on IV antibiotic therapy. No concerns. He is anxious for discharge. Physical Exam Vital Signs: Vital Signs: Last Vital Signs Temp 96.9 F 09/14/21 07:54 Pulse 83 09/14/21 07:54 Resp 18 09/14/21 07:54 BP 147/85 H 09/14/21 07:54 Pulse Ox 99 09/14/21 07:54 O2 Del Method 09/14/21 07:54 BMI result Body Mass Index 31.9 Const: General: cooperative, healthy appearing and comfortable Orientation/consciousness: oriented to person, oriented to place and oriented to time HEENT: Head: Yes normal to inspection Neck: Neck: Yes normal visual inspection Carotids: no bruits Chest: Chest palpation & inspection: normal inspection of the chest Resp: Effort & Inspection: normal respiratory effort and able to speak in complete sentences Auscultation: clear to auscultation bilaterally, no crac kles, no rales, no rhonchi and no wheezes Cardio: Rate: regular rate Rhythm: regular rhythm Heart sounds: S1 normal heart sound present and S2 normal heart sound present Bruits: no carotid bruits Peripheral pulses: Peripheral pulses 2+ throughout GI: Inspection: Yes normal to inspection Skin: Wounds: wounds noted (Right lateral foot ulcer) Hair: normal Neuro: General: oriented to person, oriented to place and oriented to time Cranial nerves: Yes CN's II-XII intact bilaterally and Yes Normal hearing present Cognition (Neuro): normal cognition Motor exam (neuro): 5/5 motor strength present throughout Extrem: Other: venous exam: No significant superficial varicosities or spider telangiectasias, minimal edema General: No clubbing, No cyanosis and No edema Psych: Appearance: grossly normal Mental Status: mental status grossly normal Speech and movement: Normal speech and movement present Progress Note: A&P Assessment and plan (1) PAD (peripheral artery disease): Status: Acute Assessment and Plan: Patient is stable from my perspective for discharge. He will require aspirin and Plavix to be continued daily. In addition in terms of his wound care would recommend foam dressing to be placed on the wound to be changed every other day. He can follow up with us in approximately 2 weeks upon discharge. Thank you for allowing us to assist in his care. If there are any questions or concerns rosa gee do not hesitate to contact us. Time Spent With Patient Time: Total time spent is greater than 50% in coordination of care (as documented) at patient's floor/unit and/or counseling patient: Procedures Date of Service Date of Service: 09/14/21 Quality Stroke Does the patient have a stroke diagnosis?: No VTE Prior VTE?: No VTE Risk Level:: Medical - moderate - high VTE Device Contraindication: Treatment Not Indicated VTE Drug Contraindication: N/A - Med Ordered
[2021-09-14 11:29] VITALS: BP 155/95; PULSE 78; RESP 18; TEMP 36.3; O2SAT 99
--- NOTE | 2021-09-14 11:32 | P.DS_ITS ---
DS: Providers Provider Date of Service: 09/14/21 Date of admission: 09/06/21 17:52 Primary care physician: None Physician Consults: 09/06/21 17:51 Consult to Vascular Surgery Routine Consulting Provider: Angel Holt Reason for consultation: om, dfu 09/11/21 09:07 Consult to Infectious Diseases Routine Consulting Provider: Lani Mcclellan Reason for consultation: OM,DFU DS: Diagnosis Discharge Diagnosis (1) PAD (peripheral artery disease): Status: Acute (2) Osteomyelitis: Status: Acute (3) Cellulitis of right lower extremity: Status: Acute (4) Hypertension: Status: Acute DS: Summary Hospital Course Hospital Course: admission note HPI 51M presented with RLE pain and swelling.? Patient history of diabetes, hypertension, obesity, smoking presented with right lower extremity pain and swelling.? Patient has recent history of right 5th toe fracture complicated by osteomyelitis, received about 3 weeks IV antibiotics and [place] followed by oral antibiotics for about 1 week, then patient flew to [place].? Patient now complaining of right lower extremity swelling and pain and worsening drainage at wound site.? He denies any fevers or chills or chest pain or shortness of breath. Hospital course The patient was admitted to the hospital for evaluation of ulcer in the right lower extremity. He reports receiving IV and oral treatments in [place] before coming to status. He was evaluated by vascular surgeon who did angiogram and decided to do angioplasty for the right lower extremity on September 10. He was started on double antiplatelet therapy with aspirin and Plavix. Discussed about the need of amputation but he refused as he want to give it a chance with IV antibiotics. Seen by infectious disease specialist who recommended total of 6 weeks of ertapenem. The patient will be discharged home and come back to the hospital on daily basis to receive IV antibiotic in the infusion center. He is supposed to follow up with vascular surgery in 2 weeks. blood pressure was noted to be running high. He was started on amlodipine on top of his home medication as to follow-up with his PCP for further adjustments of home meds. Continue ertapenem for 39 more days To follow-up with infectious disease specialist as outpatient To follow wound care clinic Once you have a PCP Amlodipine was added for better control of the blood pressure, continue to monitor at home and report readings to your PCP. to follow-up with Dr. Holt in 2 weeks after discharge ?foam dressing to be placed on the wound every other day. Time Spent with Patient Time attestation: Total time spent providing and/or coordinating discharge services: Discharge coordination time: Greater than 30 minutes Quality: Safe Use of Opioids Does Pt have an Active Cancer Diagnosis on the Problem List?: No Quality: Stroke Does the patient have a stroke diagnosis?: No Physical Exam Vital Signs: Vital Signs: Last Vital Signs Temp 97.3 F 09/14/21 11:29 Pulse 78 09/14/21 11:29 Resp 18 09/14/21 11:29 BP 155/95 H 09/14/21 11:29 Pulse Ox 99 09/14/21 11:29 O2 Del Method 09/14/21 11:29 BMI result Body Mass Index 31.9 Const: Other: Constitutional : Alert, oriented, not in distress Neck : Normal inspection, Supple Cardiovascular : RRR, no JVP, no lower extremity edema Respiratory : fair bilateral air entry, no crackles, wheezes or rhonchi Gastrointestinal: soft, lax, Normal bowel sounds, Non tender Skin : dry, right lower extremity trace edema and ulcer covered with dressing with swollen 5th toe Neurological : Alert & oriented x3, No focal deficit , CN 2-12 within normal DS: Data Data Completed and Pending Labs on day of discharge: Laboratory Results - last 24 hr 09/13/21 09/13/21 09/13/21 11:27 15:40 19:43 Creatinine Estim Creat Clear Calc Estimated GFR POC Glucose 210 H 220 H 193 H 09/14/21 09/14/21 05:23 07:52 Creatinine 1.14 Estim Creat Clear Calc 92.3 Estimated GFR > 60 POC Glucose 220 H Imaging Angiogram: Radiologist's impression: ITS Impressions Foot X-Ray 09/06/21 15:53 IMPRESSION: Bony destruction as described involving the distal fifth metatarsal and fracture with likely associated bony destruction involving the mid to proximal aspect of the proximal phalanx adjacent to the metatarsal.. Findings highly suggestive of osteomyelitis. Correlation recommended clinically. Venous Duplex 09/06/21 16:29 IMPRESSION: No DVT demonstrated in the right lower extremity. Note is made of a probable pathologically enlarged lymph node in the proximal right thigh. This could be reactive but malignancy cannot be excluded. Abd US [id number] 09/06/21 19:07 IMPRESSION: There is hemodynamically significant right lower extremity inflow and outflow disease and left lower extremity outflow disease. This could be more fully evaluated with CTA or MRA, if clinically indicated. EXAMINATION: NONINVASIVE ANKLE BRACHIAL INDICES OF BOTH LOWER EXTREMITIES CLINICAL INFORMATION: As above. COMPARISON: None. TECHNIQUE: Ankle-brachial indices were calculated bilaterally. This study was performed at rest only. FINDINGS AT REST: The ankle-brachial indices are: Right 0.96 and left 0.95. >0.97-1.25 = normal - no significant arterial disease. 0.75-0.96 = mild peripheral arterial disease. 0.5-0.74 = moderate peripheral arterial disease. <0.50 = severe peripheral arterial disease. IMPRESSION: Bilateral ankle to brachial indices are consistent with mild peripheral arterial disease. Duplex Scan Lower Extremity Artery 09/06/21 19:07 IMPRESSION: There is hemodynamically significant right lower extremity inflow and outflow disease and left lower extremity outflow disease. This could be more fully evaluated with CTA or MRA, if clinically indicated. EXAMINATION: NONINVASIVE ANKLE BRACHIAL INDICES OF BOTH LOWER EXTREMITIES CLINICAL INFORMATION: As above. COMPARISON: None. TECHNIQUE: Ankle-brachial indices were calculated bilaterally. This study was performed at rest only. FINDINGS AT REST: The ankle-brachial indices are: Right 0.96 and left 0.95. >0.97-1.25 = normal - no significant arterial disease. 0.75-0.96 = mild peripheral arterial disease. 0.5-0.74 = moderate peripheral arterial disease. <0.50 = severe peripheral arterial disease. IMPRESSION: Bilateral ankle to brachial indices are consistent with mild peripheral arterial disease. Discharge Plan Discharge Patient Disposition: Home, Self-Care Discharge Diagnosis: osteomyelitis of right lower extremity Referrals: Physician,None [Primary Care Provider] - 1 Week Discharge Medications: New clopidogrel 75 mg Tablet 75 mg PO DAILY 30 Days Qty: 30 0RF amlodipine 5 mg Tablet 5 mg PO DAILY 30 Days Qty: 30 0RF Protocol: Hold for SBP< HOLD for SBP < : 90 aspirin 81 mg Tablet,Delayed Release (Dr/Ec) 81 mg PO DAILY 30 Days Qty: 30 0RF ertapenem 1 gram recon soln 1 g IM Q24H Qty: 39 0RF Continued lisinopril 10 mg Tablet 10 mg PO DAILY clonidine HCl 0.1 mg Tablet 0.1 mg PO BID oxcarbazepine 300 mg Tablet 300 mg PO BEDTIME risperidone [Risperdal] 2 mg Tablet 2 mg PO BID Humulin 70/30 U-100 Insulin 100 unit/mL (70-30) Suspension 45 unit SUBCUT QAM Humulin 70/30 U-100 Insulin 100 unit/mL (70-30) Suspension 50 unit subcut DAILY@1700 Discharge Orders: Discharge Order (Routine); Ordered 09/14/21 Ordered By: Nicole Zamorano Diet: Advance to usual diet Activity on Discharge: As tolerated Stand Alone Forms: Patient Portal Discharge page Care Plan Goals: Read below Health Concerns: Read below Plan of Treatment: Read below Assessment: you were admitted to the hospital for evaluation of right lower extremity ulcers. Images were consistent with bone infection. Evaluated by surgical and Infectious Disease team who suggested amputation which she refused and decided to try antibiotics for the next 6 weeks. You were evaluated by vascular surgery who did an angiogram with procedure called angioplasty to keep your arteries open lower extremity. Started on aspirin and Plavix. You will need to follow-up with the vascular surgeon as outpatient. Continue ertapenem for 39 more days To follow-up with infectious disease specialist as outpatient To follow wound care clinic Once you have a PCP Amlodipine was added for better control of the blood pressure, continue to monitor at home and report readings to your PCP. to follow-up with Dr. Holt in 2 weeks after discharge ?foam dressing to be placed on the wound every other day.
[2021-09-14 11:35] LABS: Glucose, Whole Blood 214 mg/dL (60-115)
--- NOTE | 2021-09-14 13:48 | MHC.CM.PN ---
PT HAS NEW PT APPT W/PCP BRANDON ADAMS W/JOSE ANTONIO ON September AT 2PM.
--- NOTE | 2021-09-14 14:14 | PM.EVENT ---
Event Note Date of Service: 09/14/21 Event Note: probable anerobic organism blood ?GI translocation source Po Flagyl for ten day total
--- NOTE | 2021-09-14 14:48 | PM.EVENT ---
Event Note Date of Service: 09/14/21 Event Note: today event note error
== END 2021-09-14 14:55 | disposition home or self-care (01) | DRG 182 ==
LOC: HO.ED 16:39 → HO.EDOVER 18:21 → HO.S3 09-07 12:29 → HO.EDOVER 09-07 12:53 → HO.S3 09-07 13:28
PROVIDERS: Student in an Organized Health Care Education/Training Program; Surgery Vascular Surgery; Admitting Provider Internal Medicine; Emergency Provider Emergency Medicine; Visit Provider Student in an Organized Health Care Education/Training Program
PROC: 047P3Z1 Dilation of Right Anterior Tibial Artery using Drug-Coated Balloon, Percutaneous Approach (ICD-10-PCS; principal; 2021-09-10 07:30)
DX: E11.51 Type 2 diabetes mellitus with diabetic peripheral angiopathy without gangrene (principal); N17.9 Acute kidney failure, unspecified; E11.69 Type 2 diabetes mellitus with other specified complication; E11.22 Type 2 diabetes mellitus with diabetic chronic kidney disease; F25.9 Schizoaffective disorder, unspecified; M86.671 Other chronic osteomyelitis, right ankle and foot; L03.115 Cellulitis of right lower limb; I12.9 Hypertensive chronic kidney disease with stage 1 through stage 4 chronic kidney disease, or unspecified chronic kidney disease; E66.9 Obesity, unspecified; Z68.32 Body mass index [BMI] 32.0-32.9, adult; F17.210 Nicotine dependence, cigarettes, uncomplicated; Z71.6 Tobacco abuse counseling; E11.65 Type 2 diabetes mellitus with hyperglycemia; N18.30 Chronic kidney disease, stage 3 unspecified; Z20.822 Contact with and (suspected) exposure to COVID-19; Z86.19 Personal history of other infectious and parasitic diseases; Z56.0 Unemployment, unspecified; L97.519 Non-pressure chronic ulcer of other part of right foot with unspecified severity; I70.235 Atherosclerosis of native arteries of right leg with ulceration of other part of foot; Z79.4 Long term (current) use of insulin; Z79.02 Long term (current) use of antithrombotics/antiplatelets; Z79.82 Long term (current) use of aspirin; Z79.899 Other long term (current) drug therapy
CPT/HCPCS: 36415; 36573; 37228; 37232; 73620; 76937; 80048; 80053; 80202; 81001; 82565; 82947; 83605; 85025; 85027; 86140; 87040; 87635; 93005; 93923; 93925; 93971; 96361; 96365; 96375; 99152; 99153; 99285; C1725; C1751; C1760; C1769; C1887; J1335; J1650; J1885; J2185; J2270; J2543; J3370; Q9967

== ENCOUNTER 2021-09-15 10:08 | Outpatient (REF) | payer OTHER, SELFPAY | END 2021-09-15 10:09 | disposition home or self-care (01) | LOC: HO.MDS 10:08 | PROVIDERS: Visit Provider Internal Medicine | DX: Z45.2 Encounter for adjustment and management of vascular access device (principal); M86.9 Osteomyelitis, unspecified | CPT/HCPCS: 96365; J1335 ==

== ENCOUNTER 2021-09-16 09:51 | Outpatient (REF) | payer OTHER, SELFPAY | END 2021-09-16 09:52 | disposition home or self-care (01) | LOC: HO.MDS 09:51 | PROVIDERS: Visit Provider Internal Medicine | DX: Z45.2 Encounter for adjustment and management of vascular access device (principal); M86.9 Osteomyelitis, unspecified | CPT/HCPCS: 96365; J1335 ==

== ENCOUNTER 2021-09-17 09:37 | Outpatient (REF) | payer OTHER, SELFPAY | END 2021-09-17 09:38 | disposition home or self-care (01) | LOC: HO.MDS 09:37 | PROVIDERS: Visit Provider Internal Medicine | DX: Z45.2 Encounter for adjustment and management of vascular access device (principal); M86.9 Osteomyelitis, unspecified | CPT/HCPCS: J1335 ==

== ENCOUNTER 2021-09-18 11:02 | Outpatient (REF) | payer OTHER, SELFPAY | END 2021-09-18 11:03 | disposition home or self-care (01) | LOC: HO.MDS 11:02 | PROVIDERS: Visit Provider Internal Medicine | DX: Z45.2 Encounter for adjustment and management of vascular access device (principal); M86.9 Osteomyelitis, unspecified | CPT/HCPCS: 96365; J1335 ==

== ENCOUNTER 2021-09-19 11:22 | Outpatient (REF) | payer OTHER, SELFPAY | END 2021-09-19 11:23 | disposition home or self-care (01) | LOC: HO.MDS 11:22 | PROVIDERS: Visit Provider Internal Medicine | DX: Z45.2 Encounter for adjustment and management of vascular access device (principal); M86.9 Osteomyelitis, unspecified | CPT/HCPCS: 96365; J1335 ==

== ENCOUNTER 2021-09-20 14:06 | Outpatient (REF) | payer OTHER, SELFPAY | END 2021-09-20 14:07 | disposition home or self-care (01) | LOC: HO.MDS 14:06 | PROVIDERS: Visit Provider Internal Medicine | DX: Z45.2 Encounter for adjustment and management of vascular access device (principal); M86.9 Osteomyelitis, unspecified | CPT/HCPCS: 96365; J1335 ==

== ENCOUNTER 2021-09-21 11:20 | Outpatient (REF) | payer OTHER, SELFPAY | END 2021-09-21 11:21 | disposition home or self-care (01) | LOC: HO.MDS 11:20 | PROVIDERS: Visit Provider Internal Medicine | DX: Z45.2 Encounter for adjustment and management of vascular access device (principal); M86.9 Osteomyelitis, unspecified | CPT/HCPCS: 96365; J1335 ==

== ENCOUNTER 2021-09-22 10:05 | Outpatient (REF) | payer OTHER, SELFPAY | END 2021-09-22 10:06 | disposition home or self-care (01) | LOC: HO.MDS 10:05 | PROVIDERS: Visit Provider Internal Medicine | DX: Z45.2 Encounter for adjustment and management of vascular access device (principal); M86.9 Osteomyelitis, unspecified | CPT/HCPCS: 96365; J1335 ==

== ENCOUNTER 2021-09-23 10:14 | Outpatient (REF) | payer OTHER, SELFPAY | END 2021-09-23 10:15 | disposition home or self-care (01) | LOC: HO.MDS 10:14 | PROVIDERS: Visit Provider Internal Medicine | DX: Z45.2 Encounter for adjustment and management of vascular access device (principal); M86.9 Osteomyelitis, unspecified | CPT/HCPCS: 96365; J1335 ==

== ENCOUNTER 2021-09-24 14:09 | Outpatient (REF) | payer OTHER, SELFPAY ==
[2021-09-24 14:58] LABS: Anion Gap 12 (12-20); Blood Urea Nitrogen 18 mg/dL (9-16); Calcium 9.1 mg/dL (8.4-10.2); Carbon Dioxide 24 mmol/L (22-29); Chloride 102 mmol/L (96-108); Estimated Glomerular Filt Rate 59; Glucose Random 302 mg/dL (60-115); Potassium 4.4 mmol/L (3.3-5.1); Sodium 134 mmol/L (135-145)
== END 2021-09-24 14:10 | disposition home or self-care (01) ==
LOC: HO.MDS 14:09
PROVIDERS: Visit Provider Internal Medicine
DX: Z45.2 Encounter for adjustment and management of vascular access device (principal); M86.9 Osteomyelitis, unspecified
CPT/HCPCS: 36415; 80048; 96365; J1335

== ENCOUNTER 2021-09-25 12:04 | Outpatient (REF) | payer OTHER, SELFPAY | END 2021-09-25 12:05 | disposition home or self-care (01) | LOC: HO.MDS 12:04 | PROVIDERS: Visit Provider Internal Medicine | DX: Z45.2 Encounter for adjustment and management of vascular access device (principal); M86.9 Osteomyelitis, unspecified | CPT/HCPCS: 96365; 99212; J1335 ==

== ENCOUNTER 2021-09-26 11:13 | Outpatient (REF) | payer OTHER, SELFPAY | END 2021-09-26 11:14 | disposition home or self-care (01) | LOC: HO.MDS 11:13 | PROVIDERS: Visit Provider Internal Medicine | DX: Z45.2 Encounter for adjustment and management of vascular access device (principal); M86.9 Osteomyelitis, unspecified | CPT/HCPCS: 96365; J1335 ==

== ENCOUNTER 2021-09-27 13:25 | Outpatient (REF) | payer OTHER, SELFPAY | END 2021-09-27 13:26 | disposition home or self-care (01) | LOC: HO.MDS 13:25 | PROVIDERS: Visit Provider Internal Medicine | DX: Z45.2 Encounter for adjustment and management of vascular access device (principal); M86.9 Osteomyelitis, unspecified | CPT/HCPCS: 96365; J1335 ==

== ENCOUNTER 2021-09-28 11:53 | Outpatient (REF) | payer OTHER, SELFPAY | END 2021-09-28 11:54 | disposition home or self-care (01) | LOC: HO.MDS 11:53 | PROVIDERS: Visit Provider Internal Medicine | DX: Z45.2 Encounter for adjustment and management of vascular access device (principal); M86.9 Osteomyelitis, unspecified | CPT/HCPCS: 96365; J1335 ==

== ENCOUNTER 2021-09-29 10:46 | Outpatient (REF) | payer OTHER, SELFPAY | END 2021-09-29 10:47 | disposition home or self-care (01) | LOC: HO.MDS 10:46 | PROVIDERS: Visit Provider Internal Medicine | DX: Z45.2 Encounter for adjustment and management of vascular access device (principal); M86.9 Osteomyelitis, unspecified | CPT/HCPCS: 96365; J1335 ==

== ENCOUNTER 2021-09-30 10:14 | Outpatient (REF) | payer OTHER, SELFPAY | END 2021-09-30 10:15 | disposition home or self-care (01) | LOC: HO.MDS 10:14 | PROVIDERS: Visit Provider Internal Medicine | DX: Z45.2 Encounter for adjustment and management of vascular access device (principal); M86.9 Osteomyelitis, unspecified | CPT/HCPCS: 96365; J1335 ==

== ENCOUNTER 2021-10-01 13:25 | Outpatient (REF) | payer OTHER, SELFPAY ==
[2021-10-01 14:23] LABS: Anion Gap 10 (12-20); Blood Urea Nitrogen 18 mg/dL (9-16); Calcium 8.6 mg/dL (8.4-10.2); Carbon Dioxide 27 mmol/L (22-29); Chloride 105 mmol/L (96-108); Estimated Glomerular Filt Rate 59; Glucose Random 258 mg/dL (60-115); Potassium 4.8 mmol/L (3.3-5.1); Sodium 137 mmol/L (135-145)
== END 2021-10-01 13:26 | disposition home or self-care (01) ==
LOC: HO.MDS 13:25
PROVIDERS: Visit Provider Internal Medicine
DX: Z45.2 Encounter for adjustment and management of vascular access device (principal); M86.9 Osteomyelitis, unspecified
CPT/HCPCS: 36415; 80048; 96365; J1335

== ENCOUNTER 2021-10-02 13:00 | Outpatient (REF) | payer OTHER, SELFPAY | END 2021-10-02 13:01 | disposition home or self-care (01) | LOC: HO.MDS 13:00 | PROVIDERS: Visit Provider Internal Medicine | DX: Z45.2 Encounter for adjustment and management of vascular access device (principal); M86.9 Osteomyelitis, unspecified | CPT/HCPCS: 96365; J1335 ==

== ENCOUNTER 2021-10-03 13:22 | Outpatient (REF) | payer OTHER, SELFPAY | END 2021-10-03 13:23 | disposition home or self-care (01) | LOC: HO.MDS 13:22 | PROVIDERS: Visit Provider Internal Medicine | DX: Z45.2 Encounter for adjustment and management of vascular access device (principal); M86.9 Osteomyelitis, unspecified | CPT/HCPCS: 96365; J1335 ==

== ENCOUNTER 2021-10-04 12:12 | Outpatient (REF) | payer OTHER, SELFPAY | END 2021-10-04 12:13 | disposition home or self-care (01) | LOC: HO.MDS 12:12 | PROVIDERS: Visit Provider Internal Medicine | DX: Z45.2 Encounter for adjustment and management of vascular access device (principal); M86.9 Osteomyelitis, unspecified | CPT/HCPCS: 96365; J1335 ==

== ENCOUNTER 2021-10-05 13:21 | Outpatient (REF) | payer OTHER, SELFPAY | END 2021-10-05 13:22 | disposition home or self-care (01) | LOC: HO.MDS 13:21 | PROVIDERS: Visit Provider Internal Medicine | DX: Z45.2 Encounter for adjustment and management of vascular access device (principal); M86.9 Osteomyelitis, unspecified | CPT/HCPCS: 96365; J1335 ==

== ENCOUNTER 2021-10-06 10:49 | Outpatient (REF) | payer OTHER, SELFPAY | END 2021-10-06 10:50 | disposition home or self-care (01) | LOC: HO.MDS 10:49 | PROVIDERS: PCP Hospitalist; Visit Provider Internal Medicine | DX: Z45.2 Encounter for adjustment and management of vascular access device (principal); M86.9 Osteomyelitis, unspecified | CPT/HCPCS: 96365; J1335 ==

== ENCOUNTER 2021-10-07 10:09 | Outpatient (REF) | payer OTHER, SELFPAY | END 2021-10-07 10:10 | disposition home or self-care (01) | LOC: HO.MDS 10:09 | PROVIDERS: PCP Hospitalist; Visit Provider Internal Medicine | DX: Z45.2 Encounter for adjustment and management of vascular access device (principal); M86.9 Osteomyelitis, unspecified | CPT/HCPCS: 96365; J1335 ==

== ENCOUNTER 2021-10-08 14:41 | Outpatient (REF) | payer OTHER, SELFPAY | END 2021-10-08 14:42 | disposition home or self-care (01) | LOC: HO.MDS 14:41 | PROVIDERS: Visit Provider Internal Medicine | DX: Z45.2 Encounter for adjustment and management of vascular access device (principal); M86.9 Osteomyelitis, unspecified | CPT/HCPCS: 96365; J1335 ==

== ENCOUNTER 2021-10-09 14:01 | Outpatient (REF) | payer OTHER, SELFPAY | END 2021-10-09 14:02 | disposition home or self-care (01) | LOC: HO.MDS 14:01 | PROVIDERS: Visit Provider Internal Medicine | DX: Z45.2 Encounter for adjustment and management of vascular access device (principal); M86.9 Osteomyelitis, unspecified | CPT/HCPCS: 96365; J1335 ==

== ENCOUNTER 2021-10-10 12:40 | Outpatient (REF) | payer OTHER, SELFPAY | END 2021-10-10 12:41 | disposition home or self-care (01) | LOC: HO.MDS 12:40 | PROVIDERS: Visit Provider Internal Medicine | DX: Z45.2 Encounter for adjustment and management of vascular access device (principal); M86.9 Osteomyelitis, unspecified | CPT/HCPCS: 96365; J1335 ==

== ENCOUNTER 2021-10-11 13:11 | Outpatient (REF) | payer OTHER, SELFPAY | END 2021-10-11 13:12 | disposition home or self-care (01) | LOC: HO.MDS 13:11 | PROVIDERS: Visit Provider Internal Medicine | DX: Z45.2 Encounter for adjustment and management of vascular access device (principal); M86.9 Osteomyelitis, unspecified | CPT/HCPCS: 96365; J1335 ==

== ENCOUNTER 2021-10-12 13:15 | Outpatient (REF) | payer OTHER, SELFPAY | END 2021-10-12 13:16 | disposition home or self-care (01) | LOC: HO.MDS 13:15 | PROVIDERS: Visit Provider Internal Medicine | DX: Z45.2 Encounter for adjustment and management of vascular access device (principal); M86.9 Osteomyelitis, unspecified | CPT/HCPCS: 96365; J1335 ==

== ENCOUNTER 2021-10-13 10:23 | Outpatient (REF) | payer OTHER, SELFPAY | END 2021-10-13 10:24 | disposition home or self-care (01) | LOC: HO.MDS 10:23 | PROVIDERS: Visit Provider Internal Medicine | DX: Z45.2 Encounter for adjustment and management of vascular access device (principal); M86.9 Osteomyelitis, unspecified | CPT/HCPCS: 96365; J1335 ==

== ENCOUNTER 2021-10-14 10:25 | Outpatient (REF) | payer OTHER, SELFPAY | END 2021-10-14 10:26 | disposition home or self-care (01) | LOC: HO.MDS 10:25 | PROVIDERS: Visit Provider Internal Medicine | DX: Z45.2 Encounter for adjustment and management of vascular access device (principal); M86.9 Osteomyelitis, unspecified | CPT/HCPCS: 96365; J1335 ==

== ENCOUNTER 2021-10-15 14:51 | Outpatient (REF) | payer OTHER, SELFPAY | END 2021-10-15 14:52 | disposition home or self-care (01) | LOC: HO.MDS 14:51 | PROVIDERS: Visit Provider Internal Medicine | DX: Z45.2 Encounter for adjustment and management of vascular access device (principal); M86.9 Osteomyelitis, unspecified | CPT/HCPCS: 96365; J1335 ==

== ENCOUNTER 2021-10-16 13:15 | Outpatient (REF) | payer OTHER, SELFPAY | END 2021-10-16 13:16 | disposition home or self-care (01) | LOC: HO.MDS 13:15 | PROVIDERS: Visit Provider Internal Medicine | DX: Z45.2 Encounter for adjustment and management of vascular access device (principal); M86.9 Osteomyelitis, unspecified | CPT/HCPCS: 96365; 99212; J1335 ==

== ENCOUNTER 2021-10-17 13:14 | Outpatient (REF) | payer OTHER, SELFPAY | END 2021-10-17 13:15 | disposition home or self-care (01) | LOC: HO.MDS 13:14 | PROVIDERS: Visit Provider Internal Medicine | DX: Z45.2 Encounter for adjustment and management of vascular access device (principal); M86.9 Osteomyelitis, unspecified | CPT/HCPCS: 96365; J1335 ==

== ENCOUNTER 2021-10-18 14:20 | Outpatient (REF) | payer OTHER, SELFPAY | END 2021-10-18 14:21 | disposition home or self-care (01) | LOC: HO.MDS 14:20 | PROVIDERS: Visit Provider Internal Medicine | DX: Z45.2 Encounter for adjustment and management of vascular access device (principal); M86.9 Osteomyelitis, unspecified | CPT/HCPCS: 96365; J1335 ==

== ENCOUNTER 2021-10-19 11:05 | Outpatient (REF) | payer OTHER, SELFPAY | END 2021-10-19 11:06 | disposition home or self-care (01) | LOC: HO.MDS 11:05 | PROVIDERS: Visit Provider Internal Medicine | DX: Z45.2 Encounter for adjustment and management of vascular access device (principal); M86.9 Osteomyelitis, unspecified | CPT/HCPCS: 96365; J1335 ==

== ENCOUNTER 2021-10-20 10:29 | Outpatient (REF) | payer OTHER, SELFPAY | END 2021-10-20 10:30 | disposition home or self-care (01) | LOC: HO.MDS 10:29 | PROVIDERS: PCP Hospitalist; Visit Provider Internal Medicine | DX: Z45.2 Encounter for adjustment and management of vascular access device (principal); M86.9 Osteomyelitis, unspecified | CPT/HCPCS: 96365 ==

== ENCOUNTER 2021-10-21 10:10 | Outpatient (REF) | payer OTHER, SELFPAY | END 2021-10-21 10:11 | disposition home or self-care (01) | LOC: HO.MDS 10:10 | PROVIDERS: PCP Hospitalist; Visit Provider Internal Medicine | DX: Z45.2 Encounter for adjustment and management of vascular access device (principal); M86.9 Osteomyelitis, unspecified | CPT/HCPCS: 96365; J1335 ==

== ENCOUNTER 2021-10-22 11:04 | Outpatient (REF) | payer OTHER, SELFPAY ==
--- NOTE | 2021-10-22 13:16 | HO.REMOVAL ---
Removal of PICC/Midline Removal of PICC/Midline: Removal of PICC: 1. Date: 10/22/2021 2. Reason removed: per order request 3. Inserted length: 46 cm 4. Removed length: single lumen, 4-fr, 46 cm, intact, functional 5. A dressing was placed over the site upon removal. No redness, swelling, edema, or bleeding at the site.
== END 2021-10-22 11:05 | disposition home or self-care (01) ==
LOC: HO.MDS 11:04
PROVIDERS: Visit Provider Internal Medicine
DX: M86.9 Osteomyelitis, unspecified (principal); Z45.2 Encounter for adjustment and management of vascular access device
CPT/HCPCS: 96365; J1335

== ENCOUNTER → 2021-11-06 15:11 | Outpatient (BNVA) | payer OTHER, SELFPAY | PROVIDERS: PCP Hospitalist; Visit Provider Surgery Vascular Surgery | DX: I73.9 Peripheral vascular disease, unspecified (principal) | CPT/HCPCS: 99212 ==

== ENCOUNTER 2021-11-24 15:54 | Inpatient (IN) | payer OTHER, SELFPAY ==
--- NOTE | ~2021-11-24 | US_ITS ---
EXAMINATION: US NON-INVASIVE ASSESSMENT OF THE ARTERIES OF BOTH LOWER EXTREMITIES WITH PVR EXAM AND BILATERAL LOWER EXTREMITY DUPLEX CLINICAL INFORMATION: Nonhealing ulcer. Anterior and posterior tibial artery angioplasty. COMPARISON: None TECHNIQUE: Ankle pulse volume recordings, ankle pressure measurements and ankle brachial indices were obtained of the lower extremity arterial system bilaterally in addition to duplex Doppler techniques with wave form analysis and measurement of velocities in the common femoral, profunda femoral, superficial femoral, popliteal and tibial arteries. The study was performed only at rest. FINDINGS: A) AT REST: RIGHT LE. The right ankle-brachial index is: 1. This may be artifactually elevated due to non-compressibility/vessel wall calcification. 2. Right ankle pressure: Normal. 3. Right ankle PVR waveform: Normal. 4. Right direct duplex Doppler findings: * Common femoral artery: 143 cm/s, Diastolic flow reversal: Yes. * Superficial femoral artery (proximal, mid, distal): 125, 162 and 166 cm/s, Diastolic flow reversal: No. Moderate to biphasic flow. * Popliteal artery: 233 cm/s, Diastolic flow reversal: No. Moderate to biphasic flow. * Posterior tibial artery: 425 cm/s, Diastolic flow reversal: No. Significant turbulent rnce-tn-oxvedemy flow. Profunda is patent. Profunda peak systolic velocity is normal measuring 80 cm/s and there is biphasic flow. LEFT LE. The left ankle-brachial index is: 1. Again, this is likely artifactually elevated due to non-compressibility and elevated pressures. 2. Left ankle pressure: Normal. 3. Left ankle PVR waveform: Normal. 4. Left direct duplex Doppler findings: * Common femoral artery: 146 cm/s, Diastolic flow reversal: Yes. * Superficial femoral artery (proximal, mid, distal): 138, 137 and 130 cm/s, Diastolic flow reversal: Yes, proximally and in the midportion and biphasic flow in the distal SFA. Triphasic and biphasic flow. * Popliteal artery: 90 cm/s, Diastolic flow reversal: Yes. * Posterior tibial artery: 110 cm/s, Diastolic flow reversal: Yes. NATALIA Reference: * >0.97-1.25 = normal - no significant arterial disease * 0.75-0.96 = mild peripheral arterial disease * 0.5-0.74 = moderate peripheral arterial disease * <0.50 = severe peripheral arterial disease Profunda is patent. Peak systolic velocity is normal measuring 138 cm/s with biphasic flow. US/US NATALIA complete IMPRESSION: Right: The right NATALIA is 1 which is likely artificially elevated. Increased peak systolic velocities in the right popliteal and posterior tibial arteries. Left: The left NATALIA is 1 which may also be artifactually elevated. Normal peak systolic velocities in the left lower extremity and [id number] flow.
--- NOTE | ~2021-11-24 | XR_ITS ---
EXAMINATION: XR TOES, RIGHT CLINICAL INFORMATION: 5th digit lateral wound. Concern for osteomyelitis. COMPARISON: Right foot radiographs dated 09/06/2021. TECHNIQUE: 3 views of the right toes were obtained. FINDINGS: Redemonstration of soft tissue ulceration at the lateral aspect of the 5th metatarsophalangeal joint with subcutaneous emphysema. Increase osseous erosion throughout the 5th metatarsal head and base of the 5th proximal phalanx, consistent with acute on chronic osteomyelitis. No acute fracture or dislocation. XR/XR toe RT min 2V IMPRESSION: Soft tissue ulceration with subcutaneous emphysema and acute on chronic osteomyelitis at the 5th metatarsal head and 5th proximal phalanx. Increased osseous erosion when compared to the prior radiographs.
--- NOTE | ~2021-11-24 | US_ITS ---
EXAMINATION: US NON-INVASIVE ASSESSMENT OF THE ARTERIES OF BOTH LOWER EXTREMITIES WITH PVR EXAM AND BILATERAL LOWER EXTREMITY DUPLEX CLINICAL INFORMATION: Nonhealing ulcer. Anterior and posterior tibial artery angioplasty. COMPARISON: None TECHNIQUE: Ankle pulse volume recordings, ankle pressure measurements and ankle brachial indices were obtained of the lower extremity arterial system bilaterally in addition to duplex Doppler techniques with wave form analysis and measurement of velocities in the common femoral, profunda femoral, superficial femoral, popliteal and tibial arteries. The study was performed only at rest. FINDINGS: A) AT REST: RIGHT LE. The right ankle-brachial index is: 1. This may be artifactually elevated due to non-compressibility/vessel wall calcification. 2. Right ankle pressure: Normal. 3. Right ankle PVR waveform: Normal. 4. Right direct duplex Doppler findings: * Common femoral artery: 143 cm/s, Diastolic flow reversal: Yes. * Superficial femoral artery (proximal, mid, distal): 125, 162 and 166 cm/s, Diastolic flow reversal: No. Moderate to biphasic flow. * Popliteal artery: 233 cm/s, Diastolic flow reversal: No. Moderate to biphasic flow. * Posterior tibial artery: 425 cm/s, Diastolic flow reversal: No. Significant turbulent jkum-kw-bhdwaivg flow. Profunda is patent. Profunda peak systolic velocity is normal measuring 80 cm/s and there is biphasic flow. LEFT LE. The left ankle-brachial index is: 1. Again, this is likely artifactually elevated due to non-compressibility and elevated pressures. 2. Left ankle pressure: Normal. 3. Left ankle PVR waveform: Normal. 4. Left direct duplex Doppler findings: * Common femoral artery: 146 cm/s, Diastolic flow reversal: Yes. * Superficial femoral artery (proximal, mid, distal): 138, 137 and 130 cm/s, Diastolic flow reversal: Yes, proximally and in the midportion and biphasic flow in the distal SFA. Triphasic and biphasic flow. * Popliteal artery: 90 cm/s, Diastolic flow reversal: Yes. * Posterior tibial artery: 110 cm/s, Diastolic flow reversal: Yes. NATALIA Reference: * >0.97-1.25 = normal - no significant arterial disease * 0.75-0.96 = mild peripheral arterial disease * 0.5-0.74 = moderate peripheral arterial disease * <0.50 = severe peripheral arterial disease Profunda is patent. Peak systolic velocity is normal measuring 138 cm/s with biphasic flow. US/US arterial duplex LE BI IMPRESSION: Right: The right NATALIA is 1 which is likely artificially elevated. Increased peak systolic velocities in the right popliteal and posterior tibial arteries. Left: The left NATALIA is 1 which may also be artifactually elevated. Normal peak systolic velocities in the left lower extremity and jbbqqaqeo-at-[id number] flow.
[2021-11-24 16:08] VITALS: BP 134/80; BP 143/77; PULSE 88; PULSE 90; RESP 16; TEMP 36.9; O2SAT 96; O2SAT 97; BMI 36.8
--- NOTE | 2021-11-24 16:25 | ED.WOUNDLAC ---
HPI - Wound/Laceration General Chief Complaint: Extremity Injury, Lower Stated Complaint: R PINKY TOE PAIN/DRAINAGE X'S DAYS PER EMS Time Seen by Provider: 11/24/21 16:06 Source: patient, EMS and old records reviewed Mode of arrival: EMS Limitations: language barrier History of Present Illness HPI narrative: 51 yo male with history of DM on insulin, schizophrenia, hepatitis C, HTN, hx open 5th right toe fracture 3 months ago (in [place]) complicated by osteomyelitis and chronic nonhealing ulcer s/p vascular intervention in August and prolonged course of IV abx who presents to the ER with worsening pain to the right foot/toe ulcer with new purulent drainage for the last 3 days. He reports the pain is worse at night and he has been having subjective fevers and chills at night. He has been taking motrin every 8 hours for the pain with minimal relief. He reports pain is 10/10. He has to ambulate with a cane due to pain. Onset (ago): day(s) (3) Extremity Location: right: foot (right distal lateral) Associated symptoms: pain and fever Treatments prior to arrival: bandage and NSAIDS Related Data Previous Rx's Medication Instructions Recorded ertapenem 1 gram solution for 1 g IM Q24H #39 ea 09/14/21 injection amlodipine 5 mg tablet 5 mg PO DAILY 30 days #30 tabs 10/10/21 aspirin 81 mg tablet,delayed 81 mg PO DAILY 30 days #30 tabs 10/10/21 release cane #1 ea 10/10/21 clonidine HCl 0.1 mg tablet 0.1 mg PO BID #60 tabs 10/10/21 clopidogrel 75 mg tablet 75 mg PO DAILY 30 days #30 tabs 10/10/21 insulin human U-100 NPH-regulr 45 unit (0.45 mL) subcut QAM 30 10/10/21 70-30 mix 100 unit/mL subcutaneous days #13.5 mL susp (Humulin 70/30 U-100 Insulin) insulin human U-100 NPH-regulr 50 unit (0.5 mL) subcut DAILY@1700 10/10/21 70-30 mix 100 unit/mL subcutaneous 30 days #15 mL susp (Humulin 70/30 U-100 Insulin) lisinopril 10 mg tablet 20 mg PO DAILY #60 tabs 10/10/21 oxcarbazepine 300 mg tablet 300 mg PO BEDTIME #30 tabs 10/10/21 risperidone 2 mg tablet (Risperdal) 2 mg PO BID #60 tabs 10/10/21 foam bandage 5 X 5 (Allevyn #40 ea 10/17/21 Gentle Border) Allergies Allergy/AdvReac Type Severity Reaction Status Date / Time No Known Allergies Allergy Verified 11/06/21 15:44 Review of Systems Review of Systems: Constitutional: + Fever, + Chills ENT/Mouth: No sore throat, No Rhinorrhea, No Swallowing Difficulty Eyes: No Eye Pain, No Swelling, No Redness Cardiovascular: No Chest Pain, No SOB, No Orthopnea, No Edema Respiratory: No Cough, No Sputum, No Wheezing, No dyspnea Gastrointestinal: No Nausea, No Vomiting, No Diarrhea, No abdominal Pain, No Hematochezia, No Melena Genitourinary: No Dysuria, No Urinary Frequency, No Hematuria Musculoskeletal: + right foot pain No joint pain, No Myalgias Skin: No Skin Lesions, No rash Neuro: No Weakness, + Numbness of right foot, No Dizziness, No Headache Psych: No Anxiety/Panic, No Depression Heme/Lymph: No Bruising, No Lymphadenopathy Endocrine: No Polyuria, No Polydipsia PMFSH Past Medical History Medical History Broken toe Diabetes HCV (hepatitis C virus) Hypertension PAD (peripheral artery disease) Schizoaffective disorder Family History Family History Father Diabetes mellitus Social History Social History Household Members: None and Other Household Members Other:: Friend Housing: Apartment Do you presently have visiting nurse or other home services: No Alcohol intake: never Patient Tobacco Use Status: Former Tobacco user Quit Date: 08/07/21 Use of substances other than those prescribed or required for medical reasons: No Advance Directives: No service: No Current occupational status: unemployed Physical Exam Vital Signs: Vital Signs: Last Vital Signs Temp 98.5 F 11/24/21 16:08 Pulse 72 11/24/21 18:20 Resp 14 11/24/21 18:20 BP 134/77 11/24/21 18:20 Pulse Ox 97 11/24/21 18:20 O2 Del Method 11/24/21 18:20 BMI result Body Mass Index 36.8 Const: Other: Appearance: Alert. Oriented X3. No acute distress. Eyes: Pupils equal, round and reactive to light. ENT: Pharynx normal. Neck: Normal inspection. Neck supple. CVS: Normal heart rate and rhythm. Pulses normal. Respiratory: No respiratory distress. Breath sounds normal. Abdomen: Soft and nontender. +BS x4 Skin: Skin warm and dry. Normal skin color. Normal skin turgor. No rashes. Extremities: 2 cm diameter ulcer to lateral aspect of 5th metatarsal, small amount of purulent discharge, 5th metatarsal severely tender to palpation. normal ROM of the toes except 5th digit, cap refill <3 sec, foot is warm with no palpable pulses Neuro: Oriented X 3. No motor deficit. No sensory deficit. Gait not tested due to pain Course Course Course Narrative: 51 yo male with history of DM on insulin, schizophrenia, hepatitis C, HTN, hx open 5th right toe fracture 3 months ago (in [place]) complicated by osteomyelitis and chronic nonhealing ulcer s/p vascular intervention in August and prolonged course of IV abx who presents to the ER with worsening pain to the right foot/toe ulcer with new purulent drainage for the last 3 days. On exam, patient afebrile, 2 cm diameter ulcer to lateral aspect of right 5th metatarsal, purulent drainage expressed. Will send culture. Right 5th metatarsal severely tender to palpation, patient unwilling to move it. He has no palpable pulse but his foot is warm. He has good capillary refill. Will start patient on empiric IV antibiotics. Anticipate admission. XR ordered and septic workup initiated. Reevaluation(s) Reevaluation #1: Critical result for glucose 600s, will add VBG and acetone to r/o DKA. IVF ordered as well as 5 units of IV insulin. Reevaluation #2: He has no leukocytosis. His chemistry returned with a mild OBEY. He also has mild hyponatremia, this is due to hyperglycemia. Corrected sodium is normal. His inflammatory markers are markedly elevated. His x-ray is showing worsening bony erosions consistent with acute on chronic osteomyelitis. Will plan for admission to the hospital. Repeat point of care is pending, then will contact the hospitalist. XR TOE: Soft tissue ulceration with subcutaneous emphysema and acute on chronic osteomyelitis at the 5th metatarsal head and 5th proximal phalanx. Increased osseous erosion when compared to the prior radiographs. Reevaluation #3: Repeat glucose 349. Will plan for admission for IV antibiotics, vascular evaluation, surgical evaluation and pain control. MDM - Wound/Laceration Lab Data Result diagrams: 11/24/21 16:38 11/24/21 16:38 Labs: Lab Results 11/24/21 11/24/21 11/24/21 Range/Units 16:38 16:38 16:38 WBC 8.9 (4.8-10.8) X10*3/uL RBC 4.67 (4.60-5.80) X10*6/uL Hgb 11.6 L (14.0-18.0) g/dl Hct 34.8 L (42.0-52.0) % MCV 74.5 L (80.0-98.0) fL MCH 24.8 L (27.0-33.0) pg MCHC 33.3 (31.0-36.0) g/dl RDW 13.3 (11.0-16.0) % Plt Count 314 D (160-400) X10*3/uL MPV 10.5 (9.4-12.4) fL Immature Gran % (Auto) 0.5 H (0.0-0.4) % Neut % (Auto) 72.5 (45-73) % Lymph % (Auto) 16.8 L (20-40) % [place] % (Auto) 8.1 (2-11) % Eos % (Auto) 1.8 (0-4) % Baso % (Auto) 0.3 (0-2) % Lymph # (Auto) 1.5 (1.2-4.9) X10*3/uL [place] # (Auto) 0.7 (0.1-1.2) X10*3/uL Eos # (Auto) 0.2 (0.0-0.4) X10*3/uL Baso # (Auto) 0.0 (0.0-0.2) X10*3/uL Abs Immat Gran (auto) 0.04 H (0.00-0.03) X10*3/uL Absolute Neuts (auto) 6.4 (2.0-8.3) x10*3/uL Absolute Nucleated RBC 0.000 (0.0-0.012) X10*3/uL Nucleated RBC % (auto) 0.0 (0.0-0.2) /100WBC ESR (0-15) MM/HR PT 12.7 (10.0-13.1) SEC INR 1.1 (0.9-1.1) APTT 28.2 (26.0-36.4) SEC VBG pH (7.32-7.43) VBG pCO2 mmHg VBG pO2 mmHg VBG HCO3 (22-26) mmol/L VBG O2 Saturation % VBG Base Excess mmol/L Sodium 128 L (135-145) mmol/L Potassium 4.3 (3.3-5.1) mmol/L Chloride 94 L (96-108) mmol/L Carbon Dioxide 23 (22-29) mmol/L Anion Gap 15 (12-20) BUN 22 H (9-16) mg/dL Creatinine 1.58 H (0.5-1.4) mg/dL Estim Creat Clear Calc 67.2 Estimated GFR 47 POC Glucose (60-115) mg/dL Random Glucose 627 H* (60-115) mg/dL Lactic Acid (0.5-2.0) mmol/L Calcium 8.7 (8.4-10.2) mg/dL Magnesium 1.7 (1.6-2.6) mg/dL Total Bilirubin < 0.2 (0.0-1.0) mg/dL Direct Bilirubin < 0.2 (0.0-0.5) mg/dL AST 22 (5-37) U/L ALT 38 (0-40) U/L Alkaline Phosphatase 96 (39-117) U/L C-Reactive Protein 7.46 H (< or = 0.50) mg/dL B-Natriuretic Peptide (<100) pg/mL Total Protein 7.7 (6.5-8.0) g/dL Albumin 3.3 L (3.5-5.0) g/dL Acetone, Qual (Negative) COVID-19 ([facility]) (Negative) COVID-19 Clin Com 11/24/21 11/24/21 11/24/21 Range/Units 16:38 16:38 16:38 WBC (4.8-10.8) X10*3/uL RBC (4.60-5.80) X10*6/uL Hgb (14.0-18.0) g/dl Hct (42.0-52.0) % MCV (80.0-98.0) fL MCH (27.0-33.0) pg MCHC (31.0-36.0) g/dl RDW (11.0-16.0) % Plt Count (160-400) X10*3/uL MPV (9.4-12.4) fL Immature Gran % (Auto) (0.0-0.4) % Neut % (Auto) (45-73) % Lymph % (Auto) (20-40) % [place] % (Auto) (2-11) % Eos % (Auto) (0-4) % Baso % (Auto) (0-2) % Lymph # (Auto) (1.2-4.9) X10*3/uL [place] # (Auto) (0.1-1.2) X10*3/uL Eos # (Auto) (0.0-0.4) X10*3/uL Baso # (Auto) (0.0-0.2) X10*3/uL Abs Immat Gran (auto) (0.00-0.03) X10*3/uL Absolute Neuts (auto) (2.0-8.3) x10*3/uL Absolute Nucleated RBC (0.0-0.012) X10*3/uL Nucleated RBC % (auto) (0.0-0.2) /100WBC ESR (0-15) MM/HR PT (10.0-13.1) SEC INR (0.9-1.1) APTT (26.0-36.4) SEC VBG pH (7.32-7.43) VBG pCO2 mmHg VBG pO2 mmHg VBG HCO3 (22-26) mmol/L VBG O2 Saturation % VBG Base Excess mmol/L Sodium (135-145) mmol/L Potassium (3.3-5.1) mmol/L Chloride (96-108) mmol/L Carbon Dioxide (22-29) mmol/L Anion Gap (12-20) BUN (9-16) mg/dL Creatinine (0.5-1.4) mg/dL Estim Creat Clear Calc Estimated GFR POC Glucose (60-115) mg/dL Random Glucose (60-115) mg/dL Lactic Acid 1.9 (0.5-2.0) mmol/L Calcium (8.4-10.2) mg/dL Magnesium (1.6-2.6) mg/dL Total Bilirubin (0.0-1.0) mg/dL Direct Bilirubin (0.0-0.5) mg/dL AST (5-37) U/L ALT (0-40) U/L Alkaline Phosphatase (39-117) U/L C-Reactive Protein (< or = 0.50) mg/dL B-Natriuretic Peptide 24 (<100) pg/mL Total Protein (6.5-8.0) g/dL Albumin (3.5-5.0) g/dL Acetone, Qual (Negative) COVID-19 ([facility]) Negative (Negative) COVID-19 Clin Com See Note 11/24/21 11/24/21 11/24/21 Range/Units 16:46 17:14 17:17 WBC (4.8-10.8) X10*3/uL RBC (4.60-5.80) X10*6/uL Hgb (14.0-18.0) g/dl Hct (42.0-52.0) % MCV (80.0-98.0) fL MCH (27.0-33.0) pg MCHC (31.0-36.0) g/dl RDW (11.0-16.0) % Plt Count (160-400) X10*3/uL MPV (9.4-12.4) fL Immature Gran % (Auto) (0.0-0.4) % Neut % (Auto) (45-73) % Lymph % (Auto) (20-40) % [place] % (Auto) (2-11) % Eos % (Auto) (0-4) % Baso % (Auto) (0-2) % Lymph # (Auto) (1.2-4.9) X10*3/uL [place] # (Auto) (0.1-1.2) X10*3/uL Eos # (Auto) (0.0-0.4) X10*3/uL Baso # (Auto) (0.0-0.2) X10*3/uL Abs Immat Gran (auto) (0.00-0.03) X10*3/uL Absolute Neuts (auto) (2.0-8.3) x10*3/uL Absolute Nucleated RBC (0.0-0.012) X10*3/uL Nucleated RBC % (auto) (0.0-0.2) /100WBC ESR 81 H (0-15) MM/HR PT (10.0-13.1) SEC INR (0.9-1.1) APTT (26.0-36.4) SEC VBG pH 7.38 (7.32-7.43) VBG pCO2 42 mmHg VBG pO2 40 mmHg VBG HCO3 25 (22-26) mmol/L VBG O2 Saturation 58.0 % VBG Base Excess 0.7 mmol/L Sodium (135-145) mmol/L Potassium (3.3-5.1) mmol/L Chloride (96-108) mmol/L Carbon Dioxide (22-29) mmol/L Anion Gap (12-20) BUN (9-16) mg/dL Creatinine (0.5-1.4) mg/dL Estim Creat Clear Calc Estimated GFR POC Glucose (60-115) mg/dL Random Glucose (60-115) mg/dL Lactic Acid (0.5-2.0) mmol/L Calcium (8.4-10.2) mg/dL Magnesium (1.6-2.6) mg/dL Total Bilirubin (0.0-1.0) mg/dL Direct Bilirubin (0.0-0.5) mg/dL AST (5-37) U/L ALT (0-40) U/L Alkaline Phosphatase (39-117) U/L C-Reactive Protein (< or = 0.50) mg/dL B-Natriuretic Peptide (<100) pg/mL Total Protein (6.5-8.0) g/dL Albumin (3.5-5.0) g/dL Acetone, Qual Negative (Negative) COVID-19 ([facility]) (Negative) COVID-19 Clin Com 11/24/21 Range/Units 19:08 WBC (4.8-10.8) X10*3/uL RBC (4.60-5.80) X10*6/uL Hgb (14.0-18.0) g/dl Hct (42.0-52.0) % MCV (80.0-98.0) fL MCH (27.0-33.0) pg MCHC (31.0-36.0) g/dl RDW (11.0-16.0) % Plt Count (160-400) X10*3/uL MPV (9.4-12.4) fL Immature Gran % (Auto) (0.0-0.4) % Neut % (Auto) (45-73) % Lymph % (Auto) (20-40) % [place] % (Auto) (2-11) % Eos % (Auto) (0-4) % Baso % (Auto) (0-2) % Lymph # (Auto) (1.2-4.9) X10*3/uL [place] # (Auto) (0.1-1.2) X10*3/uL Eos # (Auto) (0.0-0.4) X10*3/uL Baso # (Auto) (0.0-0.2) X10*3/uL Abs Immat Gran (auto) (0.00-0.03) X10*3/uL Absolute Neuts (auto) (2.0-8.3) x10*3/uL Absolute Nucleated RBC (0.0-0.012) X10*3/uL Nucleated RBC % (auto) (0.0-0.2) /100WBC ESR (0-15) MM/HR PT (10.0-13.1) SEC INR (0.9-1.1) APTT (26.0-36.4) SEC VBG pH (7.32-7.43) VBG pCO2 mmHg VBG pO2 mmHg VBG HCO3 (22-26) mmol/L VBG O2 Saturation % VBG Base Excess mmol/L Sodium (135-145) mmol/L Potassium (3.3-5.1) mmol/L Chloride (96-108) mmol/L Carbon Dioxide (22-29) mmol/L Anion Gap (12-20) BUN (9-16) mg/dL Creatinine (0.5-1.4) mg/dL Estim Creat Clear Calc Estimated GFR POC Glucose 349 H (60-115) mg/dL Random Glucose (60-115) mg/dL Lactic Acid (0.5-2.0) mmol/L Calcium (8.4-10.2) mg/dL Magnesium (1.6-2.6) mg/dL Total Bilirubin (0.0-1.0) mg/dL Direct Bilirubin (0.0-0.5) mg/dL AST (5-37) U/L ALT (0-40) U/L Alkaline Phosphatase (39-117) U/L C-Reactive Protein (< or = 0.50) mg/dL B-Natriuretic Peptide (<100) pg/mL Total Protein (6.5-8.0) g/dL Albumin (3.5-5.0) g/dL Acetone, Qual (Negative) COVID-19 ([facility]) (Negative) COVID-19 Clin Com Critical Care Time Critical Care Time Critical Care Time: Yes Total Critical Care Time: 40 Attestation: I have personally provided critical care time exclusive of time spent on separately billable procedures. Time includes review of lab data, radiology results, discussion with consultants, and monitoring for potential decompensation. Intervention performed as documented. Discharge Plan Discharge Clinical Impression: Acute on chronic osteomyelitis, Hyperglycemia, OBEY (acute kidney injury) Patient Disposition: Admitted As Inpatient
[2021-11-24 16:46] LABS: MANUAL DIFF FLAG NO
[2021-11-24 16:48] LABS: Basophils Percent Auto 0.3 % (0-2); Eosinophils Absolute Auto 0.2 X10*3/uL (0.0-0.4); Eosinophils Percent Auto 1.8 % (0-4); Hematocrit 34.8 % (42.0-52.0); Hemoglobin 11.6 g/dl (14.0-18.0); Imm Gran Abs Auto 0.04 X10*3/uL (0.00-0.03); Imm Gran Pct Auto 0.5 % (0.0-0.4); Lymphocytes Absolute Auto 1.5 X10*3/uL (1.2-4.9); Lymphocytes Percent Auto 16.8 % (20-40); Mean Corpuscular HGB Conc 33.3 g/dl (31.0-36.0); Mean Corpuscular Hemoglobin 24.8 pg (27.0-33.0); Mean Corpuscular Volume 74.5 fL (80.0-98.0); Mean Platelet Volume 10.5 fL (9.4-12.4); Monocytes Absolute Auto 0.7 X10*3/uL (0.1-1.2); Monocytes Percent Auto 8.1 % (2-11); Neutrophils Absolute Auto 6.4 x10*3/uL (2.0-8.3); Neutrophils Percent Auto 72.5 % (45-73); Platelet Count 314 X10*3/uL (160-400); Red Blood Count 4.67 X10*6/uL (4.60-5.80); Red Cell Distribution Width 13.3 % (11.0-16.0); White Blood Count 8.9 X10*3/uL (4.8-10.8)
[2021-11-24 16:58] LABS: Lactic Acid 1.9 mmol/L (0.5-2.0)
[2021-11-24 17:00] LABS: COVID-19 Test Negative (Negative); INTERNATIONAL NORM RATIO 1.1 (0.9-1.1); Prothrombin Time 12.7 SEC (10.0-13.1)
[2021-11-24 17:03] LABS: C Reactive Protein 7.46 mg/dL (< or = 0.50); Partial Thromboplastin Time 28.2 SEC (26.0-36.4)
[2021-11-24 17:08] LABS: Alanine Aminotransferase 38 U/L (0-40); Albumin Level 3.3 g/dL (3.5-5.0); Alkaline Phosphatase 96 U/L (39-117); Anion Gap 15 (12-20); Aspartate Amino Transferase 22 U/L (5-37); Bilirubin Direct < 0.2 mg/dL (0.0-0.5); Bilirubin Total < 0.2 mg/dL (0.0-1.0); Blood Urea Nitrogen 22 mg/dL (9-16); Calcium 8.7 mg/dL (8.4-10.2); Carbon Dioxide 23 mmol/L (22-29); Chloride 94 mmol/L (96-108); Creatinine Clr Calc Pharmacy 67.2; Estimated Glomerular Filt Rate 47; Magnesium 1.7 mg/dL (1.6-2.6); Potassium 4.3 mmol/L (3.3-5.1); Sodium 128 mmol/L (135-145); Total Protein 7.7 g/dL (6.5-8.0)
[2021-11-24 17:09] LABS: B Type Natriuretic Peptide 24 pg/mL (<100)
[2021-11-24 17:21] LABS: Venous Blood Gas Refer to POC result
[2021-11-24 17:23] LABS: VBG Base Excess 0.7 mmol/L; VBG HCO3 25 mmol/L (22-26); VBG pCO2 42 mmHg; VBG pH 7.38 (7.32-7.43); VBG pO2 40 mmHg
[2021-11-24 17:29] LABS: Erythrocyte Sedimentation Rate 81 MM/HR (0-15)
[2021-11-24] MEDS: Piperacillin Sodium/Tazobactam 3.375 GM in 0.9 % Sodium Chloride 50 ML IV (17:31)
[2021-11-24] MEDS: HYDROmorphone HCl 1 MG/ML SYRINGE IVPUSH (17:32)
[2021-11-24] MEDS: Insulin Regular, Human 100 UNIT/ML 3 ML VIAL IVPUSH (17:32)
[2021-11-24] MEDS: 0.9 % Sodium Chloride 1,000 ML 999 ML IVCONT ×2 (17:32→19:35)
[2021-11-24 17:40] LABS: Acetone, serum QL Negative (Negative)
--- NOTE | 2021-11-24 17:50 | PC.NURSE ---
Right lateral foot wound, cultured, cleansed and new dcd applied. Minimal serous drainage noted, slough to one side of wound, granulation tissue to wound bed. circular wound. Pedal pulses obtained on left foot however unable to right foot, foot is warm and good sensation. Laura CAMPOS aware. Elevated POC. Medicated as charted.
[2021-11-24 18:20] VITALS: BP 134/77; PULSE 72; RESP 14; O2SAT 97
[2021-11-24 19:13] LABS: Glucose, Whole Blood 349 mg/dL (60-115)
[2021-11-24] MEDS: Insulin Lispro 100 UNIT/ML 3 ML VIAL 10 UNIT SUBCUT (19:33)
[2021-11-24 19:37] LABS: Glucose Random 627 mg/dL (60-115)
--- NOTE | 2021-11-24 20:51 | PM.IMHP ---
History of Present Illness Date of Service: 11/24/21 Attending physician on admission: Tawana Reveles Chief Complaint: non healing diabetic foot ulcer, osteomyelitis 51-year-old male with history of insulin-dependent type 2 diabetes with peripheral artery disease s/p right tibial angioplasty 09/10/21, hypertension, hepatitis-C, bipolar disorder, schizophrenia, and chronic osteomyelitis with nonhealing diabetic foot ulcer of the right 5th metatarsal presenting to the ED today for evaluation of worsening pain, subjective fevers, chills, sweats, and purulent drainage from ulcer of the base of the right fifth toe over the last 4 days. Pt injured his left great toe and sustained an open fracture of the right 5th toe well in [place] after falling off a horse. The fracture was complicated by osteomyelitis and he received 3 weeks of IV antibiotics in [place] followed by oral antibiotics for 1 week prior to flying to [place]. He was then hospitalized for the nonhealing ulcer that developed and osteomyelitis and treated with ertapenem. Was discharged with PICC line and completed 6 weeks of ertapenem last month. In the ED, no luekocytosis. Stable chronic microcytic anemia with H/H of 11.6/34.8 %. On arrival random glucose of 627 with sodium of 128, chloride 94, creatinine 1.58, BUN 22 CRP 7.46. Received 5 units regular insulin with improvement in glucose to 349. Xray of the right toes show acute on chronic osteomyelitis at the 5th metatarsal head and 5th proximal phalynx with increased osseous erosion compared to prior radiographs. Given empiric vanco and zosyn. Blood cultures and wound culture pending. He is reporting 10/10 pain in the foot/toe and has been ambulating with a cane. Review of Systems Review of Systems: General: No fevers, malaise, unintentional weight loss Cardiovascular: No chest pain, palpitations, or leg edema Respiratory: No shortness of breath, wheezing, cough GI: No abdominal pain, nausea, vomiting, diarrhea, constipation, melena, hematochezia MSK: +right foot pain Neuro: No headaches, weakness, paresthesias Skin: +nonhealing ulcer base right 5th toe. No rashes [facility] Medical History (Updated 11/24/21 @ 21:11 by ANDRES Jaime) Broken toe Diabetes HCV (hepatitis C virus) Hypertension Osteomyelitis PAD (peripheral artery disease) Schizoaffective disorder Family History Father Diabetes mellitus Social History Household Members: None and Other Household Members Other:: Friend Housing: Apartment Do you presently have visiting nurse or other home services: No Alcohol intake: never Patient Tobacco Use Status: Former Tobacco user Quit Date: 08/07/21 Use of substances other than those prescribed or required for medical reasons: No Advance Directives: No service: No Current occupational status: unemployed Meds Allergies Allergy/AdvReac Type Severity Reaction Status Date / Time No Known Allergies Allergy Verified 11/06/21 15:44 Active Medications: Current Medications Acetaminophen (Acetaminophen Supp 650 Mg Supp.Rect) 650 mg IN Q6H PRN PRN Reason: Pain, Mild (Pain Scale 1-3) Enoxaparin Sodium (Enoxaparin Sodium 40 Mg/0.4 Ml Syringe) 40 mg SUBCUT Q24H SANTI Hydromorphone HCl (Hydromorphone Hcl 1 Mg/Ml Syringe) 0.5 mg IVPUSH Q4H PRN; Protocol PRN Reason: Pain, Severe (Pain Scale 7-10) Ondansetron HCl (Ondansetron Hcl 4 Mg/2 Ml Vial) 4 mg IVPUSH Q8H PRN PRN Reason: Nausea and Vomiting Oxycodone HCl (Oxycodone Hcl Immed Release 5 Mg Tablet) 5 mg PO Q6H PRN PRN Reason: Pain, Moderate (Pain Scale 4-6 Pharmacy Consult (Consult Rx Perform Med Rec) 1 each MISCELLANE ONCE PRN PRN Reason: Consult order Sodium Chloride (0.9 % Sodium Chloride Flush 3 Ml Syringe) 3 ml IVFLUSH QSHIFT SANTI Physical Exam Vital Signs and Narrative: Vital Signs: Last Vital Signs Temp 98.5 F 11/24/21 16:08 Pulse 72 11/24/21 18:20 Resp 14 11/24/21 18:20 BP 134/77 11/24/21 18:20 Pulse Ox 97 11/24/21 18:20 O2 Del Method 11/24/21 18:20 BMI result Body Mass Index 36.8 Constitutional - Awake and Alert, No apparent distress Eyes - PERRLA, EOMI Cardiovascular - S1S2, RRR, No edema Respiratory - Normal lung expansion, Normal respiratory effort, No respiratory distress, CTA bilaterally Gastrointestinal - NT / ND; +BS; No rebound or guarding Extremities - no calf tenderness bilaterally, no swelling Skin - Warm/Dry. [id number] ulceration with exposure of fat layer with purulent and bloody drainage and foul odor overlying distal aspect lateral right foot at base of the 5th phalynx. Dried shallow ulceration of the skin distal top left great toe. Fluctuant, mildly erythematous 1.5cm lesion draining purulent material from scalp Neurological - Alert & oriented x3, No focal deficit Psychological - Appropriate affect Results Labs CBC and Chem 7: 11/24/21 16:38 11/24/21 16:38 Labs: Laboratory Results - last 24 hr 11/24/21 11/24/21 11/24/21 16:38 16:38 16:38 MCV 74.5 L MCH 24.8 L MCHC 33.3 RDW 13.3 Plt Count 314 D MPV 10.5 Immature Gran % (Auto) 0.5 H Neut % (Auto) 72.5 Lymph % (Auto) 16.8 L [place] % (Auto) 8.1 Eos % (Auto) 1.8 Baso % (Auto) 0.3 Lymph # (Auto) 1.5 [place]houn # (Auto) 0.7 Eos # (Auto) 0.2 Baso # (Auto) 0.0 Abs Immat Gran (auto) 0.04 H Absolute Neuts (auto) 6.4 Absolute Nucleated RBC 0.000 Nucleated RBC % (auto) 0.0 ESR PT 12.7 INR 1.1 APTT 28.2 VBG pH VBG pCO2 VBG pO2 VBG HCO3 VBG O2 Saturation VBG Base Excess Anion Gap 15 Estim Creat Clear Calc 67.2 Estimated GFR 47 POC Glucose Random Glucose 627 H* Lactic Acid Calcium 8.7 Magnesium 1.7 Total Bilirubin < 0.2 Direct Bilirubin < 0.2 AST 22 ALT 38 Alkaline Phosphatase 96 C-Reactive Protein 7.46 H B-Natriuretic Peptide Total Protein 7.7 Albumin 3.3 L Acetone, Qual COVID-19 (STACI) COVID-19 Clin Com 11/24/21 11/24/21 11/24/21 16:38 16:38 16:38 MCV MCH MCHC RDW Plt Count MPV Immature Gran % (Auto) Neut % (Auto) Lymph % (Auto) Calhoun % (Auto) Eos % (Auto) Baso % (Auto) Lymph # (Auto) [place]oun # (Auto) Eos # (Auto) Baso # (Auto) Abs Immat Gran (auto) Absolute Neuts (auto) Absolute Nucleated RBC Nucleated RBC % (auto) ESR PT INR APTT VBG pH VBG pCO2 VBG pO2 VBG HCO3 VBG O2 Saturation VBG Base Excess Anion Gap Estim Creat Clear Calc Estimated GFR POC Glucose Random Glucose Lactic Acid 1.9 Calcium Magnesium Total Bilirubin Direct Bilirubin AST ALT Alkaline Phosphatase C-Reactive Protein B-Natriuretic Peptide 24 Total Protein Albumin Acetone, Qual COVID-19 (STACI) Negative COVID-listedplaces Com See Note 11/24/21 11/24/21 11/24/21 16:46 17:14 17:17 MCV MCH MCHC RDW Plt Count MPV Immature Gran % (Auto) Neut % (Auto) Lymph % (Auto) Calhoun % (Auto) Eos % (Auto) Baso % (Auto) Lymph # (Auto) [place]oun # (Auto) Eos # (Auto) Baso # (Auto) Abs Immat Gran (auto) Absolute Neuts (auto) Absolute Nucleated RBC Nucleated RBC % (auto) ESR 81 H PT INR APTT VBG pH 7.38 VBG pCO2 42 VBG pO2 40 VBG HCO3 25 VBG O2 Saturation 58.0 VBG Base Excess 0.7 Anion Gap Estim Creat Clear Calc Estimated GFR POC Glucose Random Glucose Lactic Acid Calcium Magnesium Total Bilirubin Direct Bilirubin AST ALT Alkaline Phosphatase C-Reactive Protein B-Natriuretic Peptide Total Protein Albumin Acetone, Qual Negative COVID-19 (STACI) COVID-listedplaces Com 11/24/21 19:08 MCV MCH MCHC RDW Plt Count MPV Immature Gran % (Auto) Neut % (Auto) Lymph % (Auto) Calhoun % (Auto) Eos % (Auto) Baso % (Auto) Lymph # (Auto) Cal[place]oun # (Auto) Eos # (Auto) Baso # (Auto) Abs Immat Gran (auto) Absolute Neuts (auto) Absolute Nucleated RBC Nucleated RBC % (auto) ESR PT INR APTT VBG pH VBG pCO2 VBG pO2 VBG HCO3 VBG O2 Saturation VBG Base Excess Anion Gap Estim Creat Clear Calc Estimated GFR POC Glucose 349 H Random Glucose Lactic Acid Calcium Magnesium Total Bilirubin Direct Bilirubin AST ALT Alkaline Phosphatase C-Reactive Protein B-Natriuretic Peptide Total Protein Albumin Acetone, Qual COVID-19 (STACI) COVID-19 Clin Com Imaging Radiologist's Impressions: Impressions Toe X-Ray 11/24/21 17:32 IMPRESSION: Soft tissue ulceration with subcutaneous emphysema and acute on chronic osteomyelitis at the 5th metatarsal head and 5th proximal phalanx. Increased osseous erosion when compared to the prior radiographs. Assessment and Plan (1) Acute on chronic osteomyelitis: Status: Acute (2) Right foot ulcer: Status: Acute (3) OBEY (acute kidney injury): Status: Acute (4) PAD (peripheral artery disease): Status: Acute Plan 51-year-old male with history of insulin-dependent type 2 diabetes with peripheral artery disease s/p right tibial angioplasty 09/10/21, hypertension, hepatitis-C, bipolar disorder, schizophrenia, and chronic osteomyelitis with nonhealing diabetic foot ulcer of the right 5th metatarsal being admitted for acute on chronic osteolyelitis with nonhealing diabetic foot ulcer of the right 5th metatarsal head. 1-Acute on chronic osteomyelitis- s/p open fracture 5th toe 3 months ago with nonhealing ulcer -Xray right toes showed acute on chronic osteomyelitis of right 5th metatarsal head and proximal phalnyx -[place] abx 3 weeks [place] with 1 week oral abx, followed by 6 weeks etepenam -Blood cultures pending. No leukocytosis. Lactic acid normal. Hemodynamically stable. No sepsis -Received IV vanco and zosyn in ED. Initiate ertapenam as previously recommended by ID -ID consuled -Vascular surgery consulted given hx PAD with nonhealing ulcer and acute on chronic osteo 2-Nonhealing ulcer overlying right metataral head secondary to uncontrolled type 2 diabetes with PAD -Wound culture pending -Vascular surgery consulted 3-OBEY- secondary to infection -Creat 1.58, BUN 22 (baseline 1.28, 18 from 10/05) -Continue IVF -Follow BNP 4-Scalp abscess vs infected sebaceous cyst -Purulent drainage from scalp from 1.5cm fluctuant lesion -General surgery consulted 5-Uncontrolled insulin dependent type 2 diabetes -Hyperglycemia on arrival at 627. Received 5 units regular insulin with improvement to 349 -Continue home insulin equivalent -POC glucose -Diabetic diet 6-PAD- s/p right popliteal angioplasty -Continue dual antiplatelet therapy -Vascular surgery consulted 7-HTN- controlled -Hold lisinopril d/t obey -Continue amlodipine and clonidine 8-Bipolar disorder/schizophrenia- stable -Continue home meds DVT prophylaxis- lovenox Full code Pt requires inpt stay of at least 2 midnights due to osteomyelitis and OBEY requiring IV abx and IVF with ongoing monitoring and probable PICC line placement vs amputation for the osteomyelitis. Quality Stroke Does the patient have a stroke diagnosis?: No VTE Prior VTE?: No VTE Risk Level:: Medical - moderate - high VTE Device Contraindication: Treatment Not Indicated VTE Drug Contraindication: N/A - Med Ordered
[2021-11-24] MEDS: Enoxaparin Sodium 40 MG/0.4 ML SYRINGE SUBCUT (21:49)
[2021-11-24] MEDS: HYDROmorphone HCl 1 MG/ML SYRINGE 0.5 MG IVPUSH (21:49)
[2021-11-24] MEDS: Ertapenem Sodium 1 GM in 0.9 % Sodium Chloride 50 ML IV (23:10)
[2021-11-25] VITALS: BP 152/74; PULSE 80; RESP 16; TEMP 36.8; O2SAT 96
[2021-11-25] MEDS: Acetaminophen 325 MG TABLET 650 MG PO ×2 (00:15→17:17)
[2021-11-25 02:33] LABS: Appearance Urine Clear; Color Urine Yellow; Glucose Urine UA >=1000 mg/dL (Negative); Leukocyte Esterase Urine Negative (Negative); Nitrite Urine Negative (Negative); PH 5.5 (5.0-9.0); Specific Gravity - Urine >= 1.030 (1.005-1.025); Urine Blood Negative (Negative); Urine Ketones Negative (Negative); Urine Protein 100 (2+) mg/dL (Neg-Trace)
[2021-11-25 02:37] LABS: Bacteria Urine None Seen (None Seen); Hyaline Casts Urine 0-2 /LPF (0-2); RBC Urine 0-2 /HPF (0-2); Squamous Epithelial Cell Urine 0-2 /HPF (0-2); WBC Urine 0-5 /HPF (0-5)
[2021-11-25] MEDS: HYDROmorphone HCl 1 MG/ML SYRINGE 0.5 MG IVPUSH ×3 (05:56→21:42)
[2021-11-25 06:00] VITALS: BP 114/34; PULSE 75; RESP 16; TEMP 36.9; O2SAT 99
[2021-11-25 06:41] LABS: Anion Gap 13 (12-20); Blood Urea Nitrogen 16 mg/dL (9-16); Calcium 8.4 mg/dL (8.4-10.2); Carbon Dioxide 23 mmol/L (22-29); Chloride 101 mmol/L (96-108); Creatinine Clr Calc Pharmacy 86.4; Estimated Glomerular Filt Rate > 60; Glucose Random 383 mg/dL (60-115); Potassium 4.5 mmol/L (3.3-5.1); Sodium 132 mmol/L (135-145)
[2021-11-25] MEDS: Insulin Lispro 100 UNIT/ML 3 ML VIAL SUBCUT ×4 (06:45→21:23)
--- NOTE | 2021-11-25 06:46 | PC.NURSE ---
Pt POC 383, this RN called Hospitalist, no answer, gave the 10 units in order.
--- NOTE | 2021-11-25 07:37 | PHA.MEDREC ---
Pharmacy Consult ? Medication Reconciliation Pharmacy has completed the medication reconciliation. Checked nursing med rec from last night
[2021-11-25 08:14] VITALS: BP 173/66; PULSE 81; RESP 16; O2SAT 96
--- NOTE | 2021-11-25 09:00 | PHA.PROG ---
Admission Date/Time: November 24, 2021 20:47 Indication: bone and joint infection Weight in k kg Adjusted body weight in K [place] body weight in Kg: Obesity Dosing Indication % IBW: 60% over ibw Serum Creatinine - Last 168 Hours 11/24/21 11/25/21 16:38 05:52 Creatinine 1.58 H 1.23 Estimated CrCl and GFR - Last 168 Hours 11/24/21 11/25/21 16:38 05:52 Estim Creat Clear Calc 67.2 86.4 Estimated GFR 47 > 60 Vancomycin Loading Dose: 2000 Current Vancomycin Dosing Regimen:1500 mg q 12 hours Vancomycin Monitoring using AUC goal of 400 - 600 range with trough as surrogate marker: predicted auc of 539 Date and Time for next Vancomycin Level to be drawn:11/26/21 1900 Pharmacist Comments on Vancomycin Plan:dosing a bit aggressive to make predicted auc above 500, will check level after 3 doses Vancomycin dosing will take advantage of [employer] as a clinical decision support tool that uses Bayesian modeling to calculate individual patient's pharmacokinetic parameters and forecast the patient's drug concentration time course with the target goal AUC 24 range of 400 - 600 mg/L/hr.
[2021-11-25] MEDS: Insulin Glargine,Hum.rec.anlog 100 UNIT/ML 10 ML VIAL 25 UNIT SUBCUT (09:06)
[2021-11-25] MEDS: oxyCODONE HCl Immed Release 5 MG TABLET PO ×2 (09:06→17:18)
[2021-11-25] MEDS: 0.9 % Sodium Chloride Flush 3 ML SYRINGE IVFLUSH ×3 (09:06→21:23)
[2021-11-25] MEDS: Piperacillin Sodium/Tazobactam 3.375 GM in 0.9 % Sodium Chloride 50 ML IV ×3 (09:07→21:22)
--- NOTE | 2021-11-25 10:31 | PM.CNGS ---
History of Present Illness Consult details Consult date: 11/25/21 Reason for consult: other (RIGHT diabetic foot; infected scalp cyst ) Narrative: The patient is seen with the help of the hospital employment law specialist since he speaks only Latvian. He is a 51-year-old gentleman with a history of type 2 diabetes is and vascular disease who is in the care of Dr. Holt. The patient has 2 complaints: His right foot, 4th and 5th digits are infected and painful; he has a 3 cm infected sebaceous cyst on his scalp. He reports the both problems started roughly a week ago. Review of Systems Review of Systems: Yes all other systems are reviewed and are negative Constitutional: Constitutional: Reports as per [facility] Past Medical History Medical History (Updated 11/25/21 @ 10:34 by Justin Chen MD) Broken toe Diabetes HCV (hepatitis C virus) Hypertension Osteomyelitis PAD (peripheral artery disease) Schizoaffective disorder Family History Family History Father Diabetes mellitus Social History Social History Household Members: None and Other Household Members Other:: Friend Housing: Apartment Do you presently have visiting nurse or other home services: No Alcohol intake: never Patient Tobacco Use Status: Former Tobacco user Quit Date: 08/07/21 Use of substances other than those prescribed or required for medical reasons: No Advance Directives: No service: No Current occupational status: unemployed Meds Allergies Allergy/AdvReac Type Severity Reaction Status Date / Time No Known Allergies Allergy Verified 11/06/21 15:44 Active Medications: Current Medications Acetaminophen (Acetaminophen 325 Mg Tablet) 650 mg PO Q6H PRN PRN Reason: Pain, Severe (Pain Scale 7-10) Last Admin: 11/25/21 00:15 Dose: 650 mg Dextrose (Dextrose 50 % 25 Gm/50 Ml Syringe) 25 gm IVPUSH Q15M PRN; Protocol PRN Reason: per Hypoglycemia Standing Ord. Enoxaparin Sodium (Enoxaparin Sodium 40 Mg/0.4 Ml Syringe) 40 mg SUBCUT Q24H [facility] Last Admin: 11/24/21 21:49 Dose: 40 mg Glucose (Glucose Gel 15 Gm Gel..Gram.) 15 gm PO Q15M PRN; Protocol PRN Reason: per Hypoglycemia Standing Ord. Hydromorphone HCl (Hydromorphone Hcl 1 Mg/Ml Syringe) 0.5 mg IVPUSH Q4H PRN; Protocol PRN Reason: Pain, Severe (Pain Scale 7-10) Last Admin: 11/25/21 05:56 Dose: 0.5 mg Piperacillin Sod/Tazobactam (Sod 3.375 gm/ Sodium Chloride) 50 mls @ 100 mls/hr IV Q6H [facility] Last Admin: 11/25/21 09:07 Dose: 100 mls/hr Vancomycin HCl 1,500 mg/ (Sodium Chloride) 500 mls @ 333.333 mls/hr IV Q12H [facility] Insulin Glargine (Insulin Glargine,Hum.Rec.Anlog 100 Unit/Ml 10 Ml Vial) 25 unit SUBCUT DAILY [facility] Last Admin: 11/25/21 09:06 Dose: 25 unit Insulin Human Lispro (Insulin Lispro 100 Unit/Ml 3 Ml Vial) 0 unit SUBCUT QIDACHS [facility]; Protocol Last Admin: 11/25/21 06:45 Dose: 10 unit Ondansetron HCl (Ondansetron Hcl 4 Mg/2 Ml Vial) 4 mg IVPUSH Q8H PRN PRN Reason: Nausea and Vomiting Oxycodone HCl (Oxycodone Hcl Immed Release 5 Mg Tablet) 5 mg PO Q6H PRN PRN Reason: Pain, Moderate (Pain Scale 4-6 Last Admin: 11/25/21 09:06 Dose: 5 mg Pharmacy Consult (Consult Rx Perform Med Rec) 1 each MISCELLANE ONCE PRN PRN Reason: Consult order Pharmacy Consult (Consult Rx Vancomycin Dosing) 1 each MISCELLANE DAILY PRN PRN Reason: Consult order Sodium Chloride (0.9 % Sodium Chloride Flush 3 Ml Syringe) 3 ml IVFLUSH QSHIFT [facility] Last Admin: 11/25/21 09:06 Dose: 3 ml Physical Exam Vital Signs: Vital Signs: Last Vital Signs Temp 98.5 F 11/25/21 06:00 Pulse 81 11/25/21 08:14 Resp 16 11/25/21 08:14 BP 173/66 H 11/25/21 08:14 Pulse Ox 96 11/25/21 08:14 O2 Del Method 11/25/21 08:14 BMI result Body Mass Index 36.8 On exam, the patient is nontoxic. The patient is non-toxic & in good spirits NC/AT, PERRLA, EOMI In the right frontal region, a 3 cm infected sebaceous cyst is present with purulence drainage Mood, affect & judgment all appear appropriate Sclera anicteric conjunctiva pink and moist Oropharynx is clear with no aphthous ulcers, Mallampati class 4, mucous membranes moist Heart is regular, normal S1-S2 no rubs or murmurs Lungs are clear and equal anteriorly with no audible wheezing, rubs or dullness to percussion No CVA tenderness present Abdomen is overweight with no demonstrable hernias. No HSM, rebound, rigidity, guarding, masses or bruits are present. Rectal exam is deferred Skin has good turgor and is free of rashes The RIGHT FOOT 4TH AND 5TH DIGITS ARE DRESSED AND TENDER TO PALPATION Results Labs Result diagrams: 11/24/21 16:38 11/25/21 05:52 Labs: Abnormal lab results 11/24/21 11/24/21 11/24/21 Range/Units 16:38 16:38 16:46 Hgb 11.6 L (14.0-18.0) g/dl Hct 34.8 L (42.0-52.0) % MCV 74.5 L (80.0-98.0) fL MCH 24.8 L (27.0-33.0) pg Immature Gran % (Auto) 0.5 H (0.0-0.4) % Lymph % (Auto) 16.8 L (20-40) % Abs Immat Gran (auto) 0.04 H (0.00-0.03) X10*3/uL ESR 81 H (0-15) MM/HR Sodium 128 L (135-145) mmol/L Chloride 94 L (96-108) mmol/L BUN 22 H (9-16) mg/dL Creatinine 1.58 H (0.5-1.4) mg/dL POC Glucose (60-115) mg/dL Random Glucose 627 H* (60-115) mg/dL C-Reactive Protein 7.46 H (< or = 0.50) mg/dL Albumin 3.3 L (3.5-5.0) g/dL Ur Specific [place] (1.005-1.025) Urine Protein (Neg-Trace) mg/dL Urine Glucose (UA) (Negative) mg/dL 11/24/21 11/25/21 11/25/21 Range/Units 19:08 02:25 05:52 Hgb (14.0-18.0) g/dl Hct (42.0-52.0) % MCV (80.0-98.0) fL MCH (27.0-33.0) pg Immature Gran % (Auto) (0.0-0.4) % Lymph % (Auto) (20-40) % Abs Immat Gran (auto) (0.00-0.03) X10*3/uL ESR (0-15) MM/HR Sodium 132 L (135-145) mmol/L Chloride (96-108) mmol/L BUN (9-16) mg/dL Creatinine (0.5-1.4) mg/dL POC Glucose 349 H (60-115) mg/dL Random Glucose 383 H* (60-115) mg/dL C-Reactive Protein (< or = 0.50) mg/dL Albumin (3.5-5.0) g/dL Ur Specific [place] >= 1.030 H (1.005-1.025) Urine Protein 100 (2+) H (Neg-Trace) mg/dL Urine Glucose (UA) >=1000 H (Negative) mg/dL Short CBC 11/24/21 Range/Units 16:38 WBC 8.9 (4.8-10.8) X10*3/uL Hgb 11.6 L (14.0-18.0) g/dl Hct 34.8 L (42.0-52.0) % Plt Count 314 D (160-400) X10*3/uL BMP 11/24/21 11/25/21 16:38 05:52 Sodium 128 L 132 L Potassium 4.3 4.5 Chloride 94 L 101 Carbon Dioxide 23 23 BUN 22 H 16 Creatinine 1.58 H 1.23 Calcium 8.7 8.4 Liver Function 11/24/21 Range/Units 16:38 Total Bilirubin < 0.2 (0.0-1.0) mg/dL Direct Bilirubin < 0.2 (0.0-0.5) mg/dL AST 22 (5-37) U/L ALT 38 (0-40) U/L Alkaline Phosphatase 96 (39-117) U/L Albumin 3.3 L (3.5-5.0) g/dL Urine 11/25/21 Range/Units 02:25 Urine Color Yellow Urine Appearance Clear Urine pH 5.5 (5.0-9.0) Ur Specific [place] >= 1.030 H (1.005-1.025) Urine Protein 100 (2+) H (Neg-Trace) mg/dL Urine Glucose (UA) >=1000 H (Negative) mg/dL All other labs normal. Assessment and Plan (1) Acute on chronic osteomyelitis: Status: Acute (2) Hyperglycemia: Status: Acute (3) OBEY (acute kidney injury): Status: Acute (4) Right foot ulcer: Status: Acute (5) Cellulitis of right lower extremity: Status: Acute (6) Hypertension: Status: Acute (7) PAD (peripheral artery disease): Status: Acute (8) Schizophrenia: Status: Acute (9) Bipolar 1 disorder: Status: Acute (10) HCV (hepatitis C virus): Status: Acute (11) Broken toe: Status: Acute (12) Infected sebaceous cyst: Status: Acute Plan Since the patient has an established relationship with Dr. Holt, I have ordered a consult. If he is not able to address the patient's right foot issues, I will ask 1 of my associates to evaluate the patient on 11/26/21. I recommended drainage of the infected sebaceous cyst in reviewed the inherent risks of bleeding, infection, recurrence and need for a definitive procedure at a later date if the cyst persists. The patient stated that he understood and asked me proceed. Procedure note: With the patient identified, his infected scalp cyst was prepped with isopropyl alcohol and then draped in the usual manner. Local of 1% xylocaine was infiltrated an 11 blade used to make an incision into purulence sebum. At the pocket was irrigated copiously until it ran clear and a quarter-inch iodoform wick placed. The area was washed and dried and then dressed. Patient tolerated the procedure well. Plan to remove dressing and packing tomorrow. I can follow up with him on an outpatient basis. Procedures Date of Service Date of Service: 11/25/21 Abscess I/D Consent for Procedure: Elective - informed consent obtained Site: scalp Anesthetic used: lidocaine 2% Technique: incised with #11 blade Amount of fluid (mL): 1 Irrigation: Yes Packing used?: plain Additional comments: Tolerated well. Remove packing and dressing 11/26/2021
--- NOTE | 2021-11-25 10:40 | MHC.CM.PN ---
Patient lives in a house with his Brother/HCP/Awais, Bdimcv-gt-Yqk/Nela and his Mother and he uses a cane to assist with mobility. Home, self care is the goal and CM has initiated and will follow for dc planning, PCP is [facility]/Mariel Mendez and Patient was manav bruce in [place].
--- NOTE | 2021-11-25 10:50 | P.PNIM_ITS ---
Subjective Subjective Date of Service: 11/25/21 Interval History: the patient was seen and evaluated this morning Laying in bed, feels comfortable Denies any fever, chills or shortness of breath No reported other overnight events. Systemic review: No fever, chills or weakness No chest pain, palpitation No shortness of breath or coughing No abdominal pain, nausea or vomiting No urinary symptoms No any rash , nonhealing ulcer base right 5th toe. Physical Exam Vital Signs: Vital Signs: Last Vital Signs Temp 98.5 F 11/25/21 06:00 Pulse 81 11/25/21 08:14 Resp 16 11/25/21 08:14 BP 173/66 H 11/25/21 08:14 Pulse Ox 96 11/25/21 08:14 O2 Del Method 11/25/21 08:14 BMI result Body Mass Index 36.8 Const: Other: Appearance: Alert. Interactive. No acute distress. Eyes: Pupils equal, round and reactive to light. Neck: Normal inspection. Neck supple. CVS: Normal heart rate and rhythm. Pulses normal. Respiratory: No respiratory distress. Breath sounds normal. Abdomen: Soft , lax, no tenderness Skin: Skin warm and dry. Normal skin color. Normal skin turgor. No rashes. Extremities: 2 cm diameter ulcer to lateral aspect of 5th metatarsal, small amount of purulent discharge, tenderness to palpation. cap refill <3 sec, foot is warm with no palpable pulses. Scalp abscess drained and covered with dress ing Neuro: Oriented X 3. No motor deficit. No sensory deficit. Gait not tested due to pain Objective Data Active Medications Acetaminophen (Acetaminophen 325 Mg Tablet) 650 mg PO Q6H PRN PRN Reason: Pain, Severe (Pain Scale 7-10) Last Admin: 11/25/21 00:15 Dose: 650 mg Documented By: JAQUAN Dextrose (Dextrose 50 % 25 Gm/50 Ml Syringe) 25 gm IVPUSH Q15M PRN; Protocol PRN Reason: per Hypoglycemia Standing Ord. Enoxaparin Sodium (Enoxaparin Sodium 40 Mg/0.4 Ml Syringe) 40 mg SUBCUT Q24H [facility] Last Admin: 11/24/21 21:49 Dose: 40 mg Documented By: JAQUAN Glucose (Glucose Gel 15 Gm Gel..Gram.) 15 gm PO Q15M PRN; Protocol PRN Reason: per Hypoglycemia Standing Ord. Hydromorphone HCl (Hydromorphone Hcl 1 Mg/Ml Syringe) 0.5 mg IVPUSH Q4H PRN; Protocol PRN Reason: Pain, Severe (Pain Scale 7-10) Last Admin: 11/25/21 05:56 Dose: 0.5 mg Documented By: JAQUAN Piperacillin Sod/Tazobactam (Sod 3.375 gm/ Sodium Chloride) 50 mls @ 100 mls/hr IV Q6H [facility] Last Admin: 11/25/21 09:07 Dose: 100 mls/hr Documented By: SHANIA Vancomycin HCl 1,500 mg/ (Sodium Chloride) 500 mls @ 333.333 mls/hr IV Q12H [facility] Insulin Glargine (Insulin Glargine,Hum.Rec.Anlog 100 Unit/Ml 10 Ml Vial) 25 unit SUBCUT DAILY [facility] Last Admin: 11/25/21 09:06 Dose: 25 unit Documented By: SHANIA Insulin Human Lispro (Insulin Lispro 100 Unit/Ml 3 Ml Vial) 0 unit SUBCUT QIDACHS [facility]; Protocol Last Admin: 11/25/21 06:45 Dose: 10 unit Documented By: JAQUAN Ondansetron HCl (Ondansetron Hcl 4 Mg/2 Ml Vial) 4 mg IVPUSH Q8H PRN PRN Reason: Nausea and Vomiting Oxycodone HCl (Oxycodone Hcl Immed Release 5 Mg Tablet) 5 mg PO Q6H PRN PRN Reason: Pain, Moderate (Pain Scale 4-6 Last Admin: 11/25/21 09:06 Dose: 5 mg Documented By: SHANIA Pharmacy Consult (Consult Rx Perform Med Rec) 1 each MISCELLANE ONCE PRN PRN Reason: Consult order Pharmacy Consult (Consult Rx Vancomycin Dosing) 1 each MISCELLANE DAILY PRN PRN Reason: Consult order Sodium Chloride (0.9 % Sodium Chloride Flush 3 Ml Syringe) [facility] Last Admin: 11/25/21 09:06 Dose: 3 ml Documented By: SHANIA Labs CBC & Chem 7: 11/24/21 16:38 11/25/21 05:52 Labs: Laboratory Results - last 24 hr 11/24/21 11/24/21 11/24/21 16:38 16:38 16:38 MCV 74.5 L MCH 24.8 L MCHC 33.3 RDW 13.3 Plt Count 314 D MPV 10.5 Immature Gran % (Auto) 0.5 H Neut % (Auto) 72.5 Lymph % (Auto) 16.8 L [place] % (Auto) 8.1 Eos % (Auto) 1.8 Baso % (Auto) 0.3 Lymph # (Auto) 1.5 [place] # (Auto) 0.7 Eos # (Auto) 0.2 Baso # (Auto) 0.0 Abs Immat Gran (auto) 0.04 H Absolute Neuts (auto) 6.4 Absolute Nucleated RBC 0.000 Nucleated RBC % (auto) 0.0 ESR PT 12.7 INR 1.1 APTT 28.2 VBG pH VBG pCO2 VBG pO2 VBG HCO3 VBG O2 Saturation VBG Base Excess Anion Gap 15 Estim Creat Clear Calc 67.2 Estimated GFR 47 POC Glucose Random Glucose 627 H* Lactic Acid Calcium 8.7 Magnesium 1.7 Total Bilirubin < 0.2 Direct Bilirubin < 0.2 AST 22 ALT 38 Alkaline Phosphatase 96 C-Reactive Protein 7.46 H B-Natriuretic Peptide Total Protein 7.7 Albumin 3.3 L Urine Color Urine Appearance Urine pH Ur Specific [place] Urine Protein Urine Glucose (UA) Urine Ketones Urine Blood Urine Nitrite Ur Leukocyte Esterase Urine RBC Urine WBC Ur Squamous Epith Cells Urine Bacteria Hyaline Casts Acetone, Qual COVID-19 ([facility]) COVID-19 Clin Com 11/24/21 11/24/21 11/24/21 16:38 16:38 16:38 MCV MCH MCHC RDW Plt Count MPV Immature Gran % (Auto) Neut % (Auto) Lymph % (Auto) [place] % (Auto) Eos % (Auto) Baso % (Auto) Lymph # (Auto) [place] # (Auto) Eos # (Auto) Baso # (Auto) Abs Immat Gran (auto) Absolute Neuts (auto) Absolute Nucleated RBC Nucleated RBC % (auto) ESR PT INR APTT VBG pH VBG pCO2 VBG pO2 VBG HCO3 VBG O2 Saturation VBG Base Excess Anion Gap Estim Creat Clear Calc Estimated GFR POC Glucose Random Glucose Lactic Acid 1.9 Calcium Magnesium Total Bilirubin Direct Bilirubin AST ALT Alkaline Phosphatase C-Reactive Protein B-Natriuretic Peptide 24 Total Protein Albumin Urine Color Urine Appearance Urine pH Ur Specific [place] Urine Protein Urine Glucose (UA) Urine Ketones Urine Blood Urine Nitrite Ur Leukocyte Esterase Urine RBC Urine WBC Ur Squamous Epith Cells Urine Bacteria Hyaline Casts Acetone, Qual COVID-19 ([facility]) Negative COVID-19 Clin Com See Note 11/24/21 11/24/21 11/24/21 16:46 17:14 17:17 MCV MCH MCHC RDW Plt Count MPV Immature Gran % (Auto) Neut % (Auto) Lymph % (Auto) [place] % (Auto) Eos % (Auto) Baso % (Auto) Lymph # (Auto) [place] # (Auto) Eos # (Auto) Baso # (Auto) Abs Immat Gran (auto) Absolute Neuts (auto) Absolute Nucleated RBC Nucleated RBC % (auto) ESR 81 H PT INR APTT VBG pH 7.38 VBG pCO2 42 VBG pO2 40 VBG HCO3 25 VBG O2 Saturation 58.0 VBG Base Excess 0.7 Anion Gap Estim Creat Clear Calc Estimated GFR POC Glucose Random Glucose Lactic Acid Calcium Magnesium Total Bilirubin Direct Bilirubin AST ALT Alkaline Phosphatase C-Reactive Protein B-Natriuretic Peptide Total Protein Albumin Urine Color Urine Appearance Urine pH Ur Specific [place] Urine Protein Urine Glucose (UA) Urine Ketones Urine Blood Urine Nitrite Ur Leukocyte Esterase Urine RBC Urine WBC Ur Squamous Epith Cells Urine Bacteria Hyaline Casts Acetone, Qual Negative COVID-19 ([facility]) COVID-19 Clin Com 11/24/21 11/25/21 11/25/21 19:08 02:25 05:52 MCV MCH MCHC RDW Plt Count MPV Immature Gran % (Auto) Neut % (Auto) Lymph % (Auto) [place] % (Auto) Eos % (Auto) Baso % (Auto) Lymph # (Auto) [place] # (Auto) Eos # (Auto) Baso # (Auto) Abs Immat Gran (auto) Absolute Neuts (auto) Absolute Nucleated RBC Nucleated RBC % (auto) ESR PT INR APTT VBG pH VBG pCO2 VBG pO2 VBG HCO3 VBG O2 Saturation VBG Base Excess Anion Gap 13 Estim Creat Clear Calc 86.4 Estimated GFR > 60 POC Glucose 349 H Random Glucose 383 H* Lactic Acid Calcium 8.4 Magnesium Total Bilirubin Direct Bilirubin AST ALT Alkaline Phosphatase C-Reactive Protein B-Natriuretic Peptide Total Protein Albumin Urine Color Yellow Urine Appearance Clear Urine pH 5.5 Ur Specific [place] >= 1.030 H Urine Protein 100 (2+) H Urine Glucose (UA) >=1000 H Urine Ketones Negative Urine Blood Negative Urine Nitrite Negative Ur Leukocyte Esterase Negative Urine RBC 0-2 Urine WBC 0-5 Ur Squamous Epith Cells 0-2 Urine Bacteria None Seen Hyaline Casts 0-2 Acetone, Qual COVID-19 ([facility]) COVID-19 Clin Com Microbiology Microbiology Results: Microbiology 11/24/21 17:14 Gram Stain - Final Foot - Wound Routine Culture - Preliminary Culture in progress. Assessment and Plan (1) Infected sebaceous cyst: Status: Acute (2) Acute on chronic osteomyelitis: Status: Acute (3) Hyperglycemia: Status: Acute (4) OBEY (acute kidney injury): Status: Acute (5) Hyponatremia: Status: Acute Plan 51-year-old male with history of insulin-dependent type 2 diabetes with peripheral artery disease s/p right tibial angioplasty 09/10/21, hypertension, hepatitis-C, bipolar disorder, schizophrenia, and chronic osteomyelitis with nonhealing diabetic foot ulcer of the right 5th metatarsal being admitted for acute on chronic osteolyelitis with nonhealing diabetic foot ulcer of the right 5th metatarsal head. 1-Acute on chronic osteomyelitis 2/2 Nonhealing ulcer overlying right metataral head s/p open fracture 5th toe 3 months ago with nonhealing ulcer Xray right toes showed acute on chronic osteomyelitis of right 5th metatarsal head and proximal phalnyx Failed outpatient IV antibiotics Blood cultures pending Continue IV vanco and zosyn in ED Vascular surgery and ID consult Wound culture pending 2-OBEY Improved back to baseline Monitor BMP 3-Scalp infected sebaceous cyst Drain by surgical team Continue antibiotics 4-hyperglycemia 2/2 Uncontrolled insulin dependent type 2 diabetes Still elevated in 300s Start Lantus 25 units daily SSI Diabetic diet 5-PAD s/p right popliteal angioplasty Continue dual antiplatelet therapy Vascular surgery consulted 6-HTN controlled Hold lisinopril d/t obey Continue amlodipine and clonidine 7-Bipolar disorder/schizophrenia stable Continue home meds 8- hyponatremia Sodium of 132 this morning Partially pseudohyponatremia from hyperglycemia Control sugar and monitor BMP DVT prophylaxis lovenox Full code The patient will need overnight hospital stay for treatment of osteomyelitis and OBEY requiring IV abx and IVF with ongoing monitoring and probable PICC line placement vs amputation for the osteomyelitis. Quality Stroke Does the patient have a stroke diagnosis?: No VTE Prior VTE?: No VTE Risk Level:: Medical - moderate - high VTE Device Contraindication: Treatment Not Indicated VTE Drug Contraindication: N/A - Med Ordered
[2021-11-25] MEDS: vancomycin HCL 1,500 MG in 0.9 % Sodium Chloride 500 ML 333.33 MG IV ×2 (11:31→22:02)
[2021-11-25 12:32] LABS: Glucose, Whole Blood 334 mg/dL (60-115)
[2021-11-25 16:00] VITALS: BP 164/70; PULSE 74; RESP 16; TEMP 36.8; O2SAT 98
[2021-11-25 16:18] LABS: Glucose, Whole Blood 342 mg/dL (60-115)
[2021-11-25 17:14] VITALS: BP 184/82; PULSE 81; RESP 16; TEMP 36.7; O2SAT 98
[2021-11-25 19:43] LABS: Glucose, Whole Blood 276 mg/dL (60-115)
[2021-11-25] MEDS: Enoxaparin Sodium 40 MG/0.4 ML SYRINGE SUBCUT (21:23)
[2021-11-26] VITALS: BP 178/84; PULSE 83; RESP 18; TEMP 37; O2SAT 97
[2021-11-26] MEDS: oxyCODONE HCl Immed Release 5 MG TABLET PO ×3 (00:11→15:38)
[2021-11-26] MEDS: Piperacillin Sodium/Tazobactam 3.375 GM in 0.9 % Sodium Chloride 50 ML IV ×4 (03:09→20:33)
[2021-11-26 04:00] VITALS: BP 161/72; PULSE 81; RESP 18; TEMP 36.6; O2SAT 98
[2021-11-26 06:50] LABS: Hematocrit 33.9 % (42.0-52.0); Hemoglobin 11.4 g/dl (14.0-18.0); Mean Corpuscular HGB Conc 33.6 g/dl (31.0-36.0); Mean Corpuscular Hemoglobin 25.1 pg (27.0-33.0); Mean Corpuscular Volume 74.5 fL (80.0-98.0); Mean Platelet Volume 10.4 fL (9.4-12.4); Platelet Count 320 X10*3/uL (160-400); Red Blood Count 4.55 X10*6/uL (4.60-5.80); Red Cell Distribution Width 13.1 % (11.0-16.0); White Blood Count 8.9 X10*3/uL (4.8-10.8)
[2021-11-26 07:10] LABS: Anion Gap 15 (12-20); Blood Urea Nitrogen 12 mg/dL (9-16); Calcium 8.7 mg/dL (8.4-10.2); Carbon Dioxide 25 mmol/L (22-29); Chloride 98 mmol/L (96-108); Creatinine Clr Calc Pharmacy 89.3; Estimated Glomerular Filt Rate > 60; Glucose Random 269 mg/dL (60-115); Potassium 4.7 mmol/L (3.3-5.1); Sodium 133 mmol/L (135-145)
[2021-11-26 07:21] VITALS: BP 142/86; PULSE 83; RESP 18; TEMP 36.9; O2SAT 97
[2021-11-26 07:26] LABS: Glucose, Whole Blood 259 mg/dL (60-115)
[2021-11-26] MEDS: HYDROmorphone HCl 1 MG/ML SYRINGE 0.5 MG IVPUSH ×4 (08:02→23:25)
[2021-11-26] MEDS: Insulin Lispro 100 UNIT/ML 3 ML VIAL SUBCUT ×5 (08:04→20:32)
[2021-11-26] MEDS: 0.9 % Sodium Chloride Flush 3 ML SYRINGE IVFLUSH ×3 (08:05→20:33)
[2021-11-26] MEDS: Insulin Glargine,Hum.rec.anlog 100 UNIT/ML 10 ML VIAL 35 UNIT SUBCUT (08:05)
[2021-11-26] MEDS: vancomycin HCL 1,500 MG in 0.9 % Sodium Chloride 500 ML 333 MG IV ×2 (08:06→21:31)
[2021-11-26] MEDS: Acetaminophen 325 MG TABLET 650 MG PO ×2 (09:37→15:38)
--- NOTE | 2021-11-26 09:56 | P.PNIM_ITS ---
Subjective Subjective Date of Service: 11/26/21 Interval History: the patient was seen and evaluated this morning Laying in bed, complaining of pain in his right foot Denies any fever, chills or shortness of breath No reported other overnight events. Systemic review: No fever, chills or weakness No chest pain, palpitation No shortness of breath or coughing No abdominal pain, nausea or vomiting No urinary symptoms No any rash , pain from nonhealing ulcer base right 5th toe. Physical Exam Vital Signs: Vital Signs: Last Vital Signs Temp 98.4 F 11/26/21 07:21 Pulse 83 11/26/21 07:21 Resp 18 11/26/21 07:21 BP 142/86 H 11/26/21 07:21 Pulse Ox 97 11/26/21 07:21 O2 Del Method 11/26/21 07:21 BMI result Body Mass Index 36.8 Const: Other: Appearance: Alert. Interactive. No acute distress. Eyes: Pupils equal, round and reactive to light. Neck: Normal inspection. Neck supple. CVS: Normal heart rate and rhythm. Pulses normal. Respiratory: No respiratory distress. Breath sounds normal. Abdomen: Soft , lax, no tenderness Skin: Skin warm and dry. Normal skin color. Normal skin turgor. No rashes. Extremities: 2 cm diameter ulcer to lateral aspect of 5th metatarsal, small amount of purulent discharge, tenderness to palpation. foot is warm with no palpable pulses. Scalp abscess drained and covered with dressing Neuro: Oriented X 3. No motor deficit. No sensory deficit. Gait not tested due to pain Objective Data Active Medications Acetaminophen (Acetaminophen 325 Mg Tablet) 650 mg PO Q6H PRN PRN Reason: Pain, Severe (Pain Scale 7-10) Last Admin: 11/26/21 09:37 Dose: 650 mg Documented By: SANDRA Dextrose (Dextrose 50 % 25 Gm/50 Ml Syringe) 25 gm IVPUSH Q15M PRN; Protocol PRN Reason: per Hypoglycemia Standing Ord. Enoxaparin Sodium (Enoxaparin Sodium 40 Mg/0.4 Ml Syringe) 40 mg SUBCUT Q24H [facility] Last Admin: 11/25/21 21:23 Dose: 40 mg Documented By: MADDY Glucose (Glucose Gel 15 Gm Gel..Gram.) 15 gm PO Q15M PRN; Protocol PRN Reason: per Hypoglycemia Standing Ord. Hydromorphone HCl (Hydromorphone Hcl 1 Mg/Ml Syringe) 0.5 mg IVPUSH Q4H PRN; Protocol PRN Reason: Pain, Severe (Pain Scale 7-10) Last Admin: 11/26/21 08:02 Dose: 0.5 mg Documented By: SANDRA Piperacillin Sod/Tazobactam (Sod 3.375 gm/ Sodium Chloride) 50 mls @ 100 mls/hr IV Q6H [facility] Last Admin: 11/26/21 08:05 Dose: 100 mls/hr Documented By: SANDRA Vancomycin HCl 1,500 mg/ (Sodium Chloride) 500 mls @ 333.333 mls/hr IV Q12H [facility] Last Infusion: 11/26/21 09:41 Dose: 0 mls/hr Documented By: SANDRA Insulin Glargine (Insulin Glargine,Hum.Rec.Anlog 100 Unit/Ml 10 Ml Vial) 35 unit SUBCUT DAILY [facility] Last Admin: 11/26/21 08:05 Dose: 35 unit Documented By: SANDRA Insulin Human Lispro (Insulin Lispro 100 Unit/Ml 3 Ml Vial) 0 unit SUBCUT QIDACHS [facility]; Protocol Last Admin: 11/26/21 08:04 Dose: 6 unit Documented By: SANDRA Ondansetron HCl (Ondansetron Hcl 4 Mg/2 Ml Vial) 4 mg IVPUSH Q8H PRN PRN Reason: Nausea and Vomiting Oxycodone HCl (Oxycodone Hcl Immed Release 5 Mg Tablet) 5 mg PO Q6H PRN PRN Reason: Pain, Moderate (Pain Scale 4-6 Last Admin: 11/26/21 09:37 Dose: 5 mg Documented By: SANDRA Pharmacy Consult (Consult Rx Perform Med Rec) 1 each MISCELLANE ONCE PRN PRN Reason: Consult order Pharmacy Consult (Consult Rx Vancomycin Dosing) 1 each MISCELLANE DAILY PRN PRN Reason: Consult order Sodium Chloride (0.9 % Sodium Chloride Flush 3 Ml Syringe) 3 ml IVFLUSH QSHIFT [facility] Last Admin: 11/26/21 08:05 Dose: 3 ml Documented By: SANDRA Labs CBC & Chem 7: 11/26/21 05:58 11/26/21 05:58 Labs: Laboratory Results - last 24 hr 11/25/21 11/25/21 11/25/21 12:28 16:06 19:39 MCV MCH MCHC RDW Plt Count MPV Absolute Nucleated RBC Nucleated RBC % (auto) Anion Gap Estim Creat Clear Calc Estimated GFR POC Glucose 334 H 342 H 276 H Random Glucose Calcium 11/26/21 11/26/21 11/26/21 05:58 05:58 07:20 MCV 74.5 L MCH 25.1 L MCHC 33.6 RDW 13.1 Plt Count 320 MPV 10.4 Absolute Nucleated RBC 0.000 Nucleated RBC % (auto) 0.0 Anion Gap 15 Estim Creat Clear Calc 89.3 Estimated GFR > 60 POC Glucose 259 H Random Glucose 269 H Calcium 8.7 Microbiology Microbiology Results: Microbiology 11/25/21 08:49 Gram Stain - Final Head Routine Culture - Preliminary Staphylococcus aureus 11/24/21 17:14 Gram Stain - Final Foot - Wound Routine Culture - Preliminary Staphylococcus aureus 11/24/21 17:14 Blood Culture - Preliminary Blood - Venous No growth after 24 hours. 11/24/21 16:38 Blood Culture - Preliminary Blood - Venous No growth after 24 hours. Assessment and Plan (1) Hyponatremia: Status: Acute (2) Infected sebaceous cyst: Status: Acute (3) Acute on chronic osteomyelitis: Status: Acute Plan 51-year-old male with history of insulin-dependent type 2 diabetes with maki pheral artery disease s/p right tibial angioplasty 09/10/21, hypertension, hepatitis-C, bipolar disorder, schizophrenia, and chronic osteomyelitis with nonhealing diabetic foot ulcer of the right 5th metatarsal being admitted for acute on chronic osteolyelitis with nonhealing diabetic foot ulcer of the right 5th metatarsal head. 1-Acute on chronic osteomyelitis 2/2 Nonhealing ulcer overlying right metataral head s/p open fracture 5th toe 3 months ago with nonhealing ulcer Xray right toes showed acute on chronic osteomyelitis of right 5th metatarsal head and proximal phalnyx Failed outpatient IV antibiotics Blood cultures pending Continue IV vanco and zosyn in ED Vascular surgery and ID consult pending Wound culture pending To do arterial study for the lower extremities 2-OBEY Improved back to baseline Monitor BMP 3-Scalp infected sebaceous cyst Drain by surgical team Continue antibiotics 4-hyperglycemia 2/2 Uncontrolled insulin dependent type 2 diabetes Still elevated in 250s Increase Lantus to 35 units daily SSI Diabetic diet 5-PAD s/p right popliteal angioplasty Continue dual antiplatelet therapy Vascular surgery consulted 6-HTN controlled Hold lisinopril d/t obey Continue amlodipine and clonidine 7-Bipolar disorder/schizophrenia stable Continue home meds 8- hyponatremia Sodium of 133 this morning Partially pseudohyponatremia from hyperglycemia Control sugar and monitor BMP DVT prophylaxis lovenox Full code The patient will need overnight hospital stay for treatment of osteomyelitis requiring IV abx with ongoing monitoring for possible amputation for the osteomyelitis to prevent possible decompensation into sepsis Quality Stroke Does the patient have a stroke diagnosis?: No VTE Prior VTE?: No VTE Risk Level:: Medical - moderate - high VTE Device Contraindication: Treatment Not Indicated VTE Drug Contraindication: N/A - Med Ordered
--- NOTE | 2021-11-26 10:29 | P.CONGS_ITS ---
History of Present Illness Consult details Consult date: 11/26/21 Reason for consult: wound care Narrative: Complex 51-year-old gentleman with multiple medical comorbidities including history hepatitis and peripheral vascular disease presents to the hospital for increasing pain and discomfort of his right lower extremity. He has a chronic nonhealing ulcer on the lateral aspect. It has been progressing for sometime. He has been followed as an outpatient. He was admitted for concerns of acute on chronic osteomyelitis. He now presents for vascular follow-up. He was seen by General surgery. Review of Systems Review of Systems: Yes all other systems are reviewed and are negative Constitutional: Constitutional: Reports no additional constitutional complaints ENT: Reports Normal hearing present Cardiovascular: Cardiovascular: Denies chest pain, Denies chest pain at rest, Denies chest pain with activity and Denies pedal edema Respiratory: Respiratory: Denies cough Gastrointestinal: Gastrointestinal: Denies abdominal pain Musculoskeletal: Musculoskeletal: Denies abnormal gait, Denies muscle cramps and Denies radiating pain into limb Integumentary/Breasts: Skin/Breast: Denies skin ulcer and Denies wounds Neurologic: Reports Normal hearing present and Denies abnormal gait Psychiatric: Psychiatric: Reports no additional psychiatric complaints [facility] Past Medical History Medical History (Updated 11/25/21 @ 10:54 by iNcole Zamorano MD) Broken toe Diabetes HCV (hepatitis C virus) Hypertension Osteomyelitis PAD (peripheral artery disease) Schizoaffective disorder Family History Family History Father Diabetes mellitus Social History Social History Household Members: None and Other Household Members Other:: Friend Housing: Apartment Do you presently have visiting nurse or other home services: No Alcohol intake: never Patient Tobacco Use Status: Former Tobacco user Quit Date: 08/07/21 Use of substances other than those prescribed or required for medical reasons: No Currently Displaying Signs/Symptoms of Drug Intoxication Withdrawal: No Advance Directives: No service: No Current occupational status: unemployed Meds Allergies Allergy/AdvReac Type Severity Reaction Status Date / Time No Known Allergies Allergy Verified 11/06/21 15:44 Active Medications: Current Medications Acetaminophen (Acetaminophen 325 Mg Tablet) 650 mg PO Q6H PRN PRN Reason: Pain, Severe (Pain Scale 7-10) Last Admin: 11/26/21 09:37 Dose: 650 mg Amlodipine Besylate (Amlodipine Besylate 5 Mg Tablet) 5 mg PO DAILY [facility]; Protocol Aspirin (Aspirin Enteric Coated 81 Mg Tablet.Dr) 81 mg PO DAILY [facility] Clonidine HCl (Clonidine Hcl 0.1 Mg Tablet) 0.1 mg PO BID [facility]; Protocol Clopidogrel Bisulfate (Clopidogrel Bisulfate 75 Mg Tablet) 75 mg PO DAILY [facility] Dextrose (Dextrose 50 % 25 Gm/50 Ml Syringe) 25 gm IVPUSH Q15M PRN; Protocol PRN Reason: per Hypoglycemia Standing Ord. Enoxaparin Sodium (Enoxaparin Sodium 40 Mg/0.4 Ml Syringe) 40 mg SUBCUT Q24H [facility] Last Admin: 11/25/21 21:23 Dose: 40 mg Glucose (Glucose Gel 15 Gm Gel..Gram.) 15 gm PO Q15M PRN; Protocol PRN Reason: per Hypoglycemia Standing Ord. Hydromorphone HCl (Hydromorphone Hcl 1 Mg/Ml Syringe) 0.5 mg IVPUSH Q4H PRN; Protocol PRN Reason: Pain, Severe (Pain Scale 7-10) Last Admin: 11/26/21 08:02 Dose: 0.5 mg Piperacillin Sod/Tazobactam (Sod 3.375 gm/ Sodium Chloride) 50 mls @ 100 mls/hr IV Q6H [facility] Last Infusion: 11/26/21 10:26 Dose: Infused Vancomycin HCl 1,500 mg/ (Sodium Chloride) 500 mls @ 333.333 mls/hr IV Q12H [facility] Last Infusion: 11/26/21 09:41 Dose: Infused Insulin Glargine (Insulin Glargine,Hum.Rec.Anlog 100 Unit/Ml 10 Ml Vial) 35 unit SUBCUT DAILY [facility] Last Admin: 11/26/21 08:05 Dose: 35 unit Insulin Human Lispro (Insulin Lispro 100 Unit/Ml 3 Ml Vial) 0 unit SUBCUT QIDACHS [facility]; Protocol Last Admin: 11/26/21 08:04 Dose: 6 unit Lisinopril (Lisinopril 20 Mg Tablet) 20 mg PO DAILY [facility]; Protocol Ondansetron HCl (Ondansetron Hcl 4 Mg/2 Ml Vial) 4 mg IVPUSH Q8H PRN PRN Reason: Nausea and Vomiting Oxcarbazepine (Oxcarbazepine 300 Mg Tablet) 300 mg PO BEDTIME [facility] Oxycodone HCl (Oxycodone Hcl Immed Release 5 Mg Tablet) 5 mg PO Q6H PRN PRN Reason: Pain, Moderate (Pain Scale 4-6 Last Admin: 11/26/21 09:37 Dose: 5 mg Pharmacy Consult (Consult Rx Perform Med Rec) 1 each MISCELLANE ONCE PRN PRN Reason: Consult order Pharmacy Consult (Consult Rx Vancomycin Dosing) 1 each MISCELLANE DAILY PRN PRN Reason: Consult order Risperidone (Risperidone 2 Mg Tablet) 2 mg PO BID [facility] Sodium Chloride (0.9 % Sodium Chloride Flush 3 Ml Syringe) 3 ml IVFLUSH QSHIFT [facility] Last Admin: 11/26/21 08:05 Dose: 3 ml Physical Exam Vital Signs: Vital Signs: Last Vital Signs Temp 98.4 F 11/26/21 07:21 Pulse 83 11/26/21 07:21 Resp 18 11/26/21 07:21 BP 142/86 H 11/26/21 07:21 Pulse Ox 97 11/26/21 07:21 O2 Del Method 11/26/21 07:21 BMI result Body Mass Index 36.8 Const: General: cooperative, healthy appearing and comfortable Orientation/consciousness: oriented to person, oriented to place and oriented to time HEENT: Head: Yes normal to inspection Neck: Neck: Yes normal visual inspection Carotids: no bruits Chest: Chest palpation & inspection: normal inspection of the chest Resp: Effort & Inspection: normal respiratory effort and able to speak in complete sentences Auscultation: clear to auscultation bilaterally, no crackles, no rales, no rhonchi and no wheezes Cardio: Rate: regular rate Rhythm: regular rhythm Heart sounds: S1 normal heart sound present and S2 normal heart sound present Bruits: no carotid bruits Peripheral pulses: dorsalis pedis present ( bilateral DP signals) GI: Inspection: Yes normal to inspection Skin: Wounds: wounds noted ( Right foot lateral aspect 2 cm in diameter clean) Hair: normal Neuro: General: oriented to person, oriented to place and oriented to time Cranial nerves: Yes CN's II-XII intact bilaterally and Yes Normal hearing present Cognition (Neuro): normal cognition Motor exam (neuro): 5/5 motor strength present throughout Extrem: Other: venous exam: No significant superficial varicosities or spider telangiectasias, minimal edema General: No clubbing, No cyanosis and No edema Psych: Appearance: grossly normal Mental Status: mental status grossly normal Speech and movement: Normal speech and movement present Results Labs Result diagrams: 11/26/21 05:58 11/26/21 05:58 Labs: Abnormal lab results 11/25/21 11/25/21 11/25/21 Range/Units 12:28 16:06 19:39 RBC (4.60-5.80) X10*6/uL Hgb (14.0-18.0) g/dl Hct (42.0-52.0) % MCV (80.0-98.0) fL MCH (27.0-33.0) pg Sodium (135-145) mmol/L POC Glucose 334 H 342 H 276 H (60-115) mg/dL Random Glucose (60-115) mg/dL 11/26/21 11/26/21 11/26/21 Range/Units 05:58 05:58 07:20 RBC 4.55 L (4.60-5.80) X10*6/uL Hgb 11.4 L (14.0-18.0) g/dl Hct 33.9 L (42.0-52.0) % MCV 74.5 L (80.0-98.0) fL MCH 25.1 L (27.0-33.0) pg Sodium 133 L (135-145) mmol/L POC Glucose 259 H (60-115) mg/dL Random Glucose 269 H (60-115) mg/dL Short CBC 11/26/21 Range/Units 05:58 WBC 8.9 (4.8-10.8) X10*3/uL Hgb 11.4 L (14.0-18.0) g/dl Hct 33.9 L (42.0-52.0) % Plt Count 320 (160-400) X10*3/uL BMP 11/26/21 05:58 Sodium 133 L Potassium 4.7 Chloride 98 Carbon Dioxide 25 BUN 12 Creatinine 1.19 Calcium 8.7 Urine 11/25/21 Range/Units 02:25 Urine Color Yellow Urine Appearance Clear Urine pH 5.5 (5.0-9.0) Ur Specific [place] >= 1.030 H (1.005-1.025) Urine Protein 100 (2+) H (Neg-Trace) mg/dL Urine Glucose (UA) >=1000 H (Negative) mg/dL All other labs normal. Assessment and Plan (1) PAD (peripheral artery disease): Status: Acute Plan in short patient has a nonhealing right foot ulcer. X-ray was reviewed and there is concern of acute on chronic osteomyelitis. He may require an amputation of that toe. I have taken the liberty of ordering noninvasive arterial testing. We will follow-up with that to ensure that there is adequate arterial perfusion. We then will have a discussion regarding toe amputation. This was all discussed with the patient and daughter who was present during my exam. Thank you for allowing us to assist in his care. If there are any questions or concerns please do not hesitate to contact us. Procedures Date of Service Date of Service: 11/26/21
[2021-11-26 11:43] VITALS: BP 167/70; PULSE 71; RESP 18; TEMP 36.5; O2SAT 98
[2021-11-26 11:53] LABS: Glucose, Whole Blood 291 mg/dL (60-115)
[2021-11-26] MEDS: amLODIPine Besylate 5 MG TABLET PO (12:09)
[2021-11-26] MEDS: risperiDONE 2 MG TABLET PO ×2 (12:09→20:32)
[2021-11-26] MEDS: Aspirin Enteric Coated 81 MG TABLET.DR PO (12:09)
[2021-11-26] MEDS: Clopidogrel Bisulfate 75 MG TABLET PO (12:09)
--- NOTE | 2021-11-26 12:11 | MHC.CM.PN ---
PT NOT YET MEDICALLY CLEARED FOR DC DC PLAN TBD, CURRENT GOAL IS TO RETURN HOME WITH FAMILY FAMILY TO TRANSPORT
--- NOTE | 2021-11-26 13:55 | W.PM.IDCN ---
History of Present Illness Data of Consult Service Date: 11/26/21 Requesting physician: Nicole Zamorano Primary Care Provider: Victorina Corbett MD HPI Reason for consult: acute exacerbation of chronic osteomyeltisi right foot He presents with worsening right foot pain laterally near fifth toe for four days. I had seen him 09/11 and there was osteomyelitis and fracture area. He had received three weeks IV treatment in [place] and oral with no improvement. He has been seen by Vascular and declined amputation. He received six weeks IV Ertapenem end August to October and no better. He has no fever or chills. Review of Systems Review of Systems: Yes all other systems are reviewed and are negative [facility] Past Medical History Medical History Broken toe Diabetes HCV (hepatitis C virus) Hypertension Osteomyelitis PAD (peripheral artery disease) Schizoaffective disorder Family History Family History Father Diabetes mellitus Family history: reviewed and not pertinent Social History Social History Household Members: None and Other Household Members Other:: Friend Housing: Apartment Do you presently have visiting nurse or other home services: No Alcohol intake: never Patient Tobacco Use Status: Former Tobacco user Quit Date: 08/07/21 Use of substances other than those prescribed or required for medical reasons: No Currently Displaying Signs/Symptoms of Drug Intoxication Withdrawal: No Advance Directives: No service: No Current occupational status: unemployed Meds Allergies Allergy/AdvReac Type Severity Reaction Status Date / Time No Known Allergies Allergy Verified 11/06/21 15:44 Active Medications: Current Medications Acetaminophen (Acetaminophen 325 Mg Tablet) 650 mg PO Q6H PRN PRN Reason: Pain, Severe (Pain Scale 7-10) Last Admin: 11/26/21 09:37 Dose: 650 mg Amlodipine Besylate (Amlodipine Besylate 5 Mg Tablet) 5 mg PO DAILY [facility]; Protocol Last Admin: 11/26/21 12:09 Dose: 5 mg Aspirin (Aspirin Enteric Coated 81 Mg Tablet.) 81 mg PO DAILY [facility] Last Admin: 11/26/21 12:09 Dose: 81 mg Clonidine HCl (Clonidine Hcl 0.1 Mg Tablet) 0.1 mg PO BID [facility]; Protocol Clopidogrel Bisulfate (Clopidogrel Bisulfate 75 Mg Tablet) 75 mg PO DAILY [facility] Last Admin: 11/26/21 12:09 Dose: 75 mg Dextrose (Dextrose 50 % 25 Gm/50 Ml Syringe) 25 gm IVPUSH Q15M PRN; Protocol PRN Reason: per Hypoglycemia Standing Ord. Enoxaparin Sodium (Enoxaparin Sodium 40 Mg/0.4 Ml Syringe) 40 mg SUBCUT Q24H [facility] Last Admin: 11/25/21 21:23 Dose: 40 mg Glucose (Glucose Gel 15 Gm Gel..Gram.) 15 gm PO Q15M PRN; Protocol PRN Reason: per Hypoglycemia Standing Ord. Hydromorphone HCl (Hydromorphone Hcl 1 Mg/Ml Syringe) 0.5 mg IVPUSH Q4H PRN; Protocol PRN Reason: Pain, Severe (Pain Scale 7-10) Last Admin: 11/26/21 12:25 Dose: 0.5 mg Piperacillin Sod/Tazobactam (Sod 3.375 gm/ Sodium Chloride) 50 mls @ 100 mls/hr IV Q6H [facility] Last Infusion: 11/26/21 10:26 Dose: Infused Vancomycin HCl 1,500 mg/ (Sodium Chloride) 500 mls @ 333.333 mls/hr IV Q12H [facility] Last Infusion: 11/26/21 09:41 Dose: Infused Insulin Glargine (Insulin Glargine,Hum.Rec.Anlog 100 Unit/Ml 10 Ml Vial) 35 unit SUBCUT DAILY [facility] Last Admin: 11/26/21 08:05 Dose: 35 unit Insulin Human Lispro (Insulin Lispro 100 Unit/Ml 3 Ml Vial) 0 unit SUBCUT QIDACHS [facility]; Protocol Last Admin: 11/26/21 12:10 Dose: 6 unit Lisinopril (Lisinopril 20 Mg Tablet) 20 mg PO DAILY [facility]; Protocol Ondansetron HCl (Ondansetron Hcl 4 Mg/2 Ml Vial) 4 mg IVPUSH Q8H PRN PRN Reason: Nausea and Vomiting Oxcarbazepine (Oxcarbazepine 300 Mg Tablet) 300 mg PO BEDTIME [facility] Oxycodone HCl (Oxycodone Hcl Immed Release 5 Mg Tablet) 5 mg PO Q6H PRN PRN Reason: Pain, Moderate (Pain Scale 4-6 Last Admin: 11/26/21 09:37 Dose: 5 mg Pharmacy Consult (Consult Rx Perform Med Rec) 1 each MISCELLANE ONCE PRN PRN Reason: Consult order Pharmacy Consult (Consult Rx Vancomycin Dosing) 1 each MISCELLANE DAILY PRN PRN Reason: Consult order Risperidone (Risperidone 2 Mg Tablet) 2 mg PO BID [facility] Last Admin: 11/26/21 12:09 Dose: 2 mg Sodium Chloride (0.9 % Sodium Chloride Flush 3 Ml Syringe) 3 ml IVFLUSH QSHIFT [facility] Last Admin: 11/26/21 08:05 Dose: 3 ml Physical Exam Vital Signs: Vital Signs: Last Vital Signs Temp 97.7 F 11/26/21 11:43 Pulse 71 11/26/21 11:43 Resp 18 11/26/21 11:43 BP 167/70 H 11/26/21 11:43 Pulse Ox 98 11/26/21 11:43 O2 Del Method 11/26/21 11:43 BMI result Body Mass Index 36.8 Const: General: cooperative HEENT: Head: Yes normal to inspection Face and sinus: Yes normal facial exam Mouth: Normal oral and palatal mucosa present Teeth and gingiva: dentition normal Eyes: General: appearance normal, both eyes and all related structures Pupils: Equal, round and reactive pupils present Resp: Effort & Inspection: normal respiratory effort Cardio: Rate: regular rate Rhythm: regular rhythm GI: Palpation (GI): Soft to palpation and nontender : General: Yes no CVA tenderness Back/Spine/Pelvis: Back: no CVA tenderness Skin: General skin exam: no rashes or lesions noted Neuro: General: moves all extremities Cranial nerves: Yes Equal, round and reactive pupils present Extrem: Other: lateral 1 x 2 cm ulcer no purulence but reddened right foot near 5th toe area General: Yes normal to inspection Right lower extremity: foot (neuropathy bilaterally) Psych: Appearance: grossly normal Results Labs CBC & Chem 7: 11/26/21 05:58 11/26/21 05:58 Labs: Short CBC 11/26/21 Range/Units 05:58 WBC 8.9 (4.8-10.8) X10*3/uL Hgb 11.4 L (14.0-18.0) g/dl Hct 33.9 L (42.0-52.0) % Plt Count 320 (160-400) X10*3/uL BMP 11/26/21 05:58 Sodium 133 L Potassium 4.7 Chloride 98 Carbon Dioxide 25 BUN 12 Creatinine 1.19 Calcium 8.7 Microbiology Microbiology Results: Microbiology 11/25/21 08:49 Head Gram Stain - Final 11/25/21 08:49 Head Routine Culture - Preliminary Staphylococcus aureus 11/24/21 17:14 Foot - Wound Gram Stain - Final 11/24/21 17:14 Foot - Wound Routine Culture - Preliminary Staphylococcus aureus 11/24/21 17:14 Blood - Venous Blood Culture - Preliminary No growth after 24 hours. 11/24/21 16:38 Blood - Venous Blood Culture - Preliminary No growth after 24 hours. Assessment and Plan (1) Acute on chronic osteomyelitis: Status: Acute He has received maximal IV therapy with multiple weeks IV antibiotics Foot hasnt improved and has had fracture as well. NKDA Plan Surgical treatment,remove fifth toe and all infected bone. IV antibiotics while here. No further IV antibiotics at home. May give po Doxycycline week or two after.
[2021-11-26 15:47] VITALS: BP 145/70; PULSE 90; RESP 20; TEMP 36.3; O2SAT 96
[2021-11-26 16:19] LABS: Glucose, Whole Blood 410 mg/dL (60-115)
[2021-11-26 19:23] VITALS: BP 181/84; PULSE 83; RESP 19; TEMP 36.6; O2SAT 95
[2021-11-26 19:52] LABS: Glucose, Whole Blood 430 mg/dL (60-115)
[2021-11-26 20:19] LABS: Vancomycin Trough 17.3 mcg/mL (10.0-20.0)
[2021-11-26] MEDS: OXcarbazepine 300 MG TABLET PO (20:32)
[2021-11-26] MEDS: cloNIDine HCL 0.1 MG TABLET PO (20:32)
--- NOTE | 2021-11-26 20:53 | HE.PHANOTE ---
trough 17.3 prior to the 5th dose. Keep same dose. AUC anticipated 523 per insight
[2021-11-26] MEDS: Enoxaparin Sodium 40 MG/0.4 ML SYRINGE SUBCUT (21:31)
[2021-11-26 22:34] LABS: Glucose, Whole Blood 315 mg/dL (60-115)
[2021-11-27] VITALS: BP 147/74; PULSE 78; RESP 17; TEMP 36.3; O2SAT 98
[2021-11-27 04:00] VITALS: BP 147/79; PULSE 76; RESP 17; TEMP 36.4; O2SAT 96
[2021-11-27] MEDS: Piperacillin Sodium/Tazobactam 3.375 GM in 0.9 % Sodium Chloride 50 ML IV ×4 (04:03→20:10)
[2021-11-27 06:14] LABS: Anion Gap 11 (12-20); Blood Urea Nitrogen 15 mg/dL (9-16); Calcium 8.5 mg/dL (8.4-10.2); Carbon Dioxide 29 mmol/L (22-29); Chloride 99 mmol/L (96-108); Estimated Glomerular Filt Rate > 60; Glucose Random 307 mg/dL (60-115); Sodium 134 mmol/L (135-145)
--- NOTE | 2021-11-27 07:01 | HE.PHANOTE ---
Vancomycin Addendum Continue current regimen, vancomycin 1500 mg Q12H. Expected AUC 550 with a trough of 17.3. If SCr continue to rise, dose will need to be decreased. Pharmacist will continue to monitor renal function daily. Next trough scheduled 11/28 @ 0700. Argenis MatiasD
[2021-11-27 07:02] VITALS: BP 137/67; PULSE 82; RESP 16; TEMP 36.8; O2SAT 95
[2021-11-27 07:20] LABS: Glucose, Whole Blood 293 mg/dL (60-115)
[2021-11-27] MEDS: HYDROmorphone HCl 1 MG/ML SYRINGE 0.5 MG IVPUSH ×3 (07:47→20:07)
[2021-11-27] MEDS: cloNIDine HCL 0.1 MG TABLET PO ×2 (07:52→20:05)
[2021-11-27] MEDS: Clopidogrel Bisulfate 75 MG TABLET PO (07:52)
[2021-11-27] MEDS: amLODIPine Besylate 5 MG TABLET PO (07:52)
[2021-11-27] MEDS: risperiDONE 2 MG TABLET PO ×2 (07:52→20:05)
[2021-11-27] MEDS: Aspirin Enteric Coated 81 MG TABLET.DR PO (07:52)
[2021-11-27] MEDS: lisinopriL 20 MG TABLET PO (07:52)
[2021-11-27] MEDS: 0.9 % Sodium Chloride Flush 3 ML SYRINGE IVFLUSH ×3 (07:52→20:09)
[2021-11-27] MEDS: Insulin Lispro 100 UNIT/ML 3 ML VIAL SUBCUT ×4 (08:03→20:06)
[2021-11-27] MEDS: vancomycin HCL 1,500 MG in 0.9 % Sodium Chloride 500 ML 333.3 MG IV ×2 (10:59→20:53)
[2021-11-27] MEDS: Insulin Glargine,Hum.rec.anlog 100 UNIT/ML 10 ML VIAL 45 UNIT SUBCUT (10:59)
[2021-11-27] MEDS: oxyCODONE HCl Immed Release 5 MG TABLET PO (10:59)
[2021-11-27 11:08] VITALS: BP 127/72; PULSE 70; RESP 15; TEMP 36.2; O2SAT 97
[2021-11-27 11:27] LABS: Glucose, Whole Blood 298 mg/dL (60-115)
--- NOTE | 2021-11-27 12:43 | HO.PM.IMPN ---
Subjective Subjective Date of Service: 11/27/21 Interval History: the patient was seen and evaluated this morning complaining of pain in his right foot Denies any fever, chills or shortness of breath No reported other overnight events. Systemic review: No fever, chills or weakness No chest pain, palpitation No shortness of breath or coughing No abdominal pain, nausea or vomiting No urinary symptoms No any rash , pain from nonhealing ulcer base right 5th toe. Physical Exam Vital Signs: Vital Signs: Last Vital Signs Temp 97.1 F 11/27/21 11:08 Pulse 70 11/27/21 11:08 Resp 15 11/27/21 11:08 BP 127/72 11/27/21 11:08 Pulse Ox 97 11/27/21 11:08 O2 Del Method 11/27/21 11:08 BMI result Body Mass Index 36.8 Const: Other: Appearance: Alert. Interactive. No acute distress. Eyes: Pupils equal, round and reactive to light. Neck: Normal inspection. Neck supple. CVS: Normal heart rate and rhythm. Pulses normal. Respiratory: No respiratory distress. Breath sounds normal. Abdomen: Soft , lax, no tenderness Skin: Skin warm and dry. Normal skin color. Normal skin turgor. No rashes. Extremities: 2 cm diameter ulcer to lateral aspect of 5th metatarsal, tenderness to palpation. no palpable pulses. Scalp abscess drained and covered with dressing Neuro: Oriented X 3. No motor deficit. No sensory deficit. Gait not tested due to pain Objective Data Active Medications Acetaminophen (Acetaminophen 325 Mg Tablet) 650 mg PO Q6H PRN PRN Reason: Pain, Severe (Pain Scale 7-10) Last Admin: 11/26/21 15:38 Dose: 650 mg Documented By: SANDRA Amlodipine Besylate (Amlodipine Besylate 5 Mg Tablet) 5 mg PO DAILY [facility]; Protocol Last Admin: 11/27/21 07:52 Dose: 5 mg Documented By: KASEY Aspirin (Aspirin Enteric Coated 81 Mg Tablet.) 81 mg PO DAILY [facility] Last Admin: 11/27/21 07:52 Dose: 81 mg Documented By: KASEY Clonidine HCl (Clonidine Hcl 0.1 Mg Tablet) 0.1 mg PO BID [facility]; Protocol Last Admin: 11/27/21 07:52 Dose: 0.1 mg Documented By: KASEY Clopidogrel Bisulfate (Clopidogrel Bisulfate 75 Mg Tablet) 75 mg PO DAILY [facility] Last Admin: 11/27/21 07:52 Dose: 75 mg Documented By: KASEY Dextrose (Dextrose 50 % 25 Gm/50 Ml Syringe) 25 gm IVPUSH Q15M PRN; Protocol PRN Reason: per Hypoglycemia Standing Ord. Enoxaparin Sodium (Enoxaparin Sodium 40 Mg/0.4 Ml Syringe) 40 mg SUBCUT Q24H [facility] Last Admin: 11/26/21 21:31 Dose: 40 mg Documented By: TANISHA Glucose (Glucose Gel 15 Gm Gel..Gram.) 15 gm PO Q15M PRN; Protocol PRN Reason: per Hypoglycemia Standing Ord. Hydromorphone HCl (Hydromorphone Hcl 1 Mg/Ml Syringe) 0.5 mg IVPUSH Q4H PRN; Protocol PRN Reason: Pain, Severe (Pain Scale 7-10) Last Admin: 11/27/21 07:47 Dose: 0.5 mg Documented By: KASEY Piperacillin Sod/Tazobactam (Sod 3.375 gm/ Sodium Chloride) 50 mls @ 100 mls/hr IV Q6H [facility] Last Infusion: 11/27/21 12:40 Dose: 0 mls/hr Documented By: KASEY Vancomycin HCl 1,500 mg/ (Sodium Chloride) 500 mls @ 333.333 mls/hr IV Q12H [facility] Last Infusion: 11/27/21 12:41 Dose: 0 mls/hr Documented By: KASEY Insulin Glargine (Insulin Glargine,Hum.Rec.Anlog 100 Unit/Ml 10 Ml Vial) 45 unit SUBCUT DAILY [facility] Last Admin: 11/27/21 10:59 Dose: 45 unit Documented By: KASEY Insulin Human Lispro (Insulin Lispro 100 Unit/Ml 3 Ml Vial) 0 unit SUBCUT QIDACHS [facility]; Protocol Last Admin: 11/27/21 12:37 Dose: 6 unit Documented By: KASEY Lisinopril (Lisinopril 20 Mg Tablet) 20 mg PO DAILY [facility]; Protocol Last Admin: 11/27/21 07:52 Dose: 20 mg Documented By: KASEY Ondansetron HCl (Ondansetron Hcl 4 Mg/2 Ml Vial) 4 mg IVPUSH Q8H PRN PRN Reason: Nausea and Vomiting Oxcarbazepine (Oxcarbazepine 300 Mg Tablet) 300 mg PO BEDTIME [facility] Last Admin: 11/26/21 20:32 Dose: 300 mg Documented By: TANISHA Oxycodone HCl (Oxycodone Hcl Immed Release 5 Mg Tablet) 5 mg PO Q6H PRN PRN Reason: Pain, Moderate (Pain Scale 4-6 Last Admin: 11/27/21 10:59 Dose: 5 mg Documented By: KASEY Pharmacy Consult (Consult Rx Perform Med Rec) 1 each MISCELLANE ONCE PRN PRN Reason: Consult order Pharmacy Consult (Consult Rx Vancomycin Dosing) 1 each MISCELLANE DAILY PRN PRN Reason: Consult order Risperidone (Risperidone 2 Mg Tablet) 2 mg PO BID [facility] Last Admin: 11/27/21 07:52 Dose: 2 mg Documented By: KASEY Sodium Chloride (0.9 % Sodium Chloride Flush 3 Ml Syringe) 3 ml IVFLUSH QSHIFT [facility] Last Admin: 11/27/21 07:52 Dose: 3 ml Documented By: KASEY Labs CBC & Chem 7: 11/26/21 05:58 11/27/21 05:19 Labs: Laboratory Results - last 24 hr 11/26/21 11/26/21 11/26/21 15:50 19:11 19:31 Anion Gap Estim Creat Clear Calc Estimated GFR POC Glucose 410 H* 430 H* Random Glucose Calcium Vancomycin Trough 17.3 11/26/21 11/27/21 11/27/21 22:31 05:19 05:19 Anion Gap 11 L Estim Creat Clear Calc 85.0 Cancelled Estimated GFR > 60 Cancelled POC Glucose 315 H Random Glucose 307 H Calcium 8.5 Vancomycin Trough 11/27/21 11/27/21 07:07 11:12 Anion Gap Estim Creat Clear Calc Estimated GFR POC Glucose 293 H 298 H Random Glucose Calcium Vancomycin Trough Microbiology Microbiology Results: Microbiology 11/25/21 08:49 Gram Stain - Final Head Routine Culture - Final Methicillin Res Staph Aureus 11/24/21 17:14 Gram Stain - Final Foot - Wound Routine Culture - Final Methicillin Res Staph Aureus 11/24/21 17:14 Blood Culture - Preliminary Blood - Venous No growth after 48 hours. 11/24/21 16:38 Blood Culture - Preliminary Blood - Venous No growth after 48 hours. Assessment and Plan (1) Hyponatremia: Status: Acute (2) Acute on chronic osteomyelitis: Status: Acute (3) Hyperglycemia: Status: Acute Plan 51-year-old male with history of insulin-dependent type 2 diabetes with peripheral artery disease s/p right tibial angioplasty 09/10/21, hypertension, hepatitis-C, bipolar disorder, schizophrenia, and chronic osteomyelitis with nonhealing diabetic foot ulcer of the right 5th metatarsal being admitted for acute on chronic osteolyelitis with nonhealing diabetic foot ulcer of the right 5th metatarsal head. 1-Acute on chronic osteomyelitis 2/2 Nonhealing ulcer overlying right metataral head s/p open fracture 5th toe 3 months ago with nonhealing ulcer Xray right toes showed acute on chronic osteomyelitis of right 5th metatarsal head and proximal phalnyx Failed outpatient IV antibiotics Blood cultures pending Continue IV vanco and zosyn Id recommended amputation 5th toe for failed antibiotic treatment Wound culture pending Duplex ultrasound showing no evidence of NATALIA of 1 bilaterally Vascular surgery to do angiogram with plan for 5th toe amputation 2-OBEY Improved back to baseline Monitor BMP 3-Scalp infected sebaceous cyst Drain by surgical team Continue antibiotics 4-hyperglycemia 2/2 Uncontrolled insulin dependent type 2 diabetes Still elevated in 250s Increase Lantus to 50 units daily SSI Diabetic diet 5-PAD s/p right popliteal angioplasty Continue dual antiplatelet therapy Vascular surgery consulted 6-HTN controlled Hold lisinopril d/t obey Continue amlodipine and clonidine 7-Bipolar disorder/schizophrenia stable Continue home meds 8- hyponatremia pseudohyponatremia from hyperglycemia Control sugar and monitor BMP DVT prophylaxis lovenox Full code The patient will need overnight hospital stay for treatment of osteomyelitis requiring IV abx with a plan for amputation for the osteomyelitis to prevent possible decompensation into sepsis Quality Stroke Does the patient have a stroke diagnosis?: No VTE Prior VTE?: No VTE Risk Level:: Medical - moderate - high VTE Device Contraindication: Treatment Not Indicated VTE Drug Contraindication: N/A - Med Ordered
--- NOTE | 2021-11-27 12:58 | MHC.CM.PN ---
NEEDS AMPUTATION. FOLLOWED BY VASCULAR. CASE MANAGEMENT FOLLOWING FOR DC PLANS.
--- NOTE | 2021-11-27 15:19 | HO.VASCPN ---
Subjective Subjective Date of Service: 11/27/21 Patient reports: no new complaints and feels better Interval history: very pleasant 51-year-old gentleman presents for follow-up regarding nonhealing toe ulcer. He has undergone noninvasive arterial testing earlier today. We are awaiting formal radiology results. He has had no interval issues. Pain appears to be well controlled. Physical Exam Vital Signs: Vital Signs: Last Vital Signs Temp 97.1 F 11/27/21 11:08 Pulse 70 11/27/21 11:08 Resp 15 11/27/21 11:08 BP 127/72 11/27/21 11:08 Pulse Ox 97 11/27/21 11:08 O2 Del Method 11/27/21 11:08 BMI result Body Mass Index 36.8 Const: General: cooperative, healthy appearing and no acute distress Orientation/consciousness: oriented to person, oriented to place and oriented to time HEENT: Head: Yes normal to inspection Neck: Carotids: no bruits Chest: Chest palpation & inspection: normal inspection of the chest Resp: Effort & Inspection: normal respiratory effort and able to speak in complete sentences Auscultation: clear to auscultation bilaterally Cardio: Rate: regular rate Heart sounds: S1 normal heart sound present and S2 normal heart sound present GI: Inspection: Yes normal to inspection Skin: Other: Open right lateral toe ulcer General skin exam: no rashes or lesions noted Wounds: no wounds Neuro: General: oriented to person, oriented to place, oriented to time and CN's II-XI intact bilaterally Extrem: General: Yes normal to inspection, Yes full ROM and Yes no clubbing, cyanosis or edema Psych: Appearance: grossly normal and well kempt Speech and movement: Normal speech and movement present Affect: normal affect Progress Note: A&P Assessment and plan (1) PAD (peripheral artery disease): Status: Acute Assessment and Plan: in short patient has nonhealing right foot ulcer. He has undergone right lower extremity endovascular intervention just 3 months prior. we will await formal results. Will discuss with family for possible endovascular intervention. Ideally he will need an amputation of that right 5th toe. Hopefully in the interim his labs will normalize and his blood sugar will be under better control. Thank you for allowing us to assist in his care. If there are any questions or concerns please do not hesitate to contact us. Time Spent With Patient Time: Total time spent is greater than 50% in coordination of care (as documented) at patient's floor/unit and/or counseling patient: Procedures Date of Service Date of Service: 11/27/21 Quality Stroke Does the patient have a stroke diagnosis?: No VTE Prior VTE?: No VTE Risk Level:: Medical - moderate - high VTE Device Contraindication: Treatment Not Indicated VTE Drug Contraindication: N/A - Med Ordered
[2021-11-27 15:20] VITALS: BP 161/70; PULSE 76; RESP 19; TEMP 36.1; O2SAT 95
[2021-11-27 15:32] LABS: Glucose, Whole Blood 375 mg/dL (60-115)
[2021-11-27] MEDS: Acetaminophen 325 MG TABLET 650 MG PO (16:16)
[2021-11-27 19:32] VITALS: BP 128/62; PULSE 87; RESP 19; TEMP 37; O2SAT 97
[2021-11-27 19:42] LABS: Glucose, Whole Blood 355 mg/dL (60-115)
[2021-11-27] MEDS: OXcarbazepine 300 MG TABLET PO (20:05)
[2021-11-27] MEDS: Enoxaparin Sodium 40 MG/0.4 ML SYRINGE SUBCUT (20:49)
[2021-11-28] VITALS: BP 145/71; PULSE 75; RESP 18; TEMP 36.4; O2SAT 98
[2021-11-28] MEDS: Piperacillin Sodium/Tazobactam 3.375 GM in 0.9 % Sodium Chloride 50 ML IV ×4 (02:10→21:10)
[2021-11-28 04:00] VITALS: BP 136/73; PULSE 70; RESP 17; TEMP 36.8; O2SAT 95
[2021-11-28 07:21] LABS: Glucose, Whole Blood 299 mg/dL (60-115)
[2021-11-28 07:27] LABS: Creatinine Clr Calc Pharmacy 94.9; Estimated Glomerular Filt Rate > 60
[2021-11-28 08:00] VITALS: BP 141/67; PULSE 83; RESP 18; TEMP 36.8; O2SAT 96
[2021-11-28] MEDS: Insulin Lispro 100 UNIT/ML 3 ML VIAL SUBCUT ×4 (08:14→22:10)
[2021-11-28] MEDS: HYDROmorphone HCl 1 MG/ML SYRINGE 0.5 MG IVPUSH ×3 (08:14→21:09)
[2021-11-28] MEDS: Insulin Glargine,Hum.rec.anlog 100 UNIT/ML 10 ML VIAL 50 UNIT SUBCUT (08:14)
[2021-11-28] MEDS: Clopidogrel Bisulfate 75 MG TABLET PO (08:15)
[2021-11-28] MEDS: risperiDONE 2 MG TABLET PO ×2 (08:15→21:10)
[2021-11-28] MEDS: lisinopriL 20 MG TABLET PO (08:15)
[2021-11-28] MEDS: 0.9 % Sodium Chloride Flush 3 ML SYRINGE IVFLUSH ×2 (08:15→22:18)
[2021-11-28] MEDS: cloNIDine HCL 0.1 MG TABLET PO ×2 (08:15→21:10)
[2021-11-28] MEDS: Aspirin Enteric Coated 81 MG TABLET.DR PO (08:15)
[2021-11-28] MEDS: amLODIPine Besylate 5 MG TABLET PO (08:15)
[2021-11-28 08:34] LABS: Vancomycin Trough 14.6 mcg/mL (10.0-20.0)
[2021-11-28] MEDS: vancomycin HCL 1,500 MG in 0.9 % Sodium Chloride 500 ML 333.3 MG IV (09:11)
--- NOTE | 2021-11-28 09:57 | HO.PM.IMPN ---
Subjective Subjective Date of Service: 11/28/21 Interval History: cc: nonhealing DFU interval history: no new complaints Cardiovascular Cardiovascular: Reports no additional cardiovascular complaints Respiratory Respiratory: Reports no additional respiratory complaints Physical Exam Vital Signs: Vital Signs: Last Vital Signs Temp 98.3 F 11/28/21 08:00 Pulse 83 11/28/21 08:00 Resp 18 11/28/21 08:00 BP 141/67 H 11/28/21 08:00 Pulse Ox 96 11/28/21 08:00 O2 Del Method 11/28/21 08:00 BMI result Body Mass Index 36.8 Const: General: cooperative, healthy appearing and no acute distress Orientation/consciousness: oriented to person, oriented to place and oriented to time HEENT: Head: Yes normal to inspection Neck: Carotids: no bruits Chest: Chest palpation & inspection: normal inspection of the chest Resp: Effort & Inspection: normal respiratory effort and able to speak in complete sentences Auscultation: clear to auscultation bilaterally Cardio: Rate: regular rate Heart sounds: S1 normal heart sound present and S2 normal heart sound present GI: Inspection: Yes normal to inspection Skin: Other: Open right lateral toe ulcer General skin exam: no rashes or lesions noted Wounds: no wounds Neuro: General: oriented to person, oriented to place, oriented to time and CN's II-XI intact bilaterally Extrem: General: Yes normal to inspection, Yes full ROM and Yes no clubbing, cyanosis or edema Psych: Appearance: grossly normal and well kempt Speech and movement: Normal speech and movement present Affect: normal affect Objective Data Active Medications Acetaminophen (Acetaminophen 325 Mg Tablet) 650 mg PO Q6H PRN PRN Reason: Pain, Severe (Pain Scale 7-10) Last Admin: 11/27/21 16:16 Dose: 650 mg Documented By: CHELSEY Amlodipine Besylate (Amlodipine Besylate 5 Mg Tablet) 5 mg PO DAILY [facility]; Protocol Last Admin: 11/28/21 08:15 Dose: 5 mg Documented By: VICK Aspirin (Aspirin Enteric Coated 81 Mg Tablet.) 81 mg PO DAILY [facility] Last Admin: 11/28/21 08:15 Dose: 81 mg Documented By: VICK Clonidine HCl (Clonidine Hcl 0.1 Mg Tablet) 0.1 mg PO BID [facility]; Protocol Last Admin: 11/28/21 08:15 Dose: 0.1 mg Documented By: VICK Clopidogrel Bisulfate (Clopidogrel Bisulfate 75 Mg Tablet) 75 mg PO DAILY [facility] Last Admin: 11/28/21 08:15 Dose: 75 mg Documented By: VICK Dextrose (Dextrose 50 % 25 Gm/50 Ml Syringe) 25 gm IVPUSH Q15M PRN; Protocol PRN Reason: per Hypoglycemia Standing Ord. Enoxaparin Sodium (Enoxaparin Sodium 40 Mg/0.4 Ml Syringe) 40 mg SUBCUT Q24H [facility] Last Admin: 11/27/21 20:49 Dose: 40 mg Documented By: HYUNL Glucose (Glucose Gel 15 Gm Gel..Gram.) 15 gm PO Q15M PRN; Protocol PRN Reason: per Hypoglycemia Standing Ord. Hydromorphone HCl (Hydromorphone Hcl 1 Mg/Ml Syringe) 0.5 mg IVPUSH Q4H PRN; Protocol PRN Reason: Pain, Severe (Pain Scale 7-10) Last Admin: 11/28/21 08:14 Dose: 0.5 mg Documented By: VICK Piperacillin Sod/Tazobactam (Sod 3.375 gm/ Sodium Chloride) 50 mls @ 100 mls/hr IV Q6H [facility] Last Admin: 11/28/21 08:14 Dose: 100 mls/hr Documented By: VICK Vancomycin HCl 1,500 mg/ (Sodium Chloride) 500 mls @ 333.333 mls/hr IV Q12H [facility] Last Admin: 11/28/21 09:11 Dose: 333.3 mls/hr Documented By: VICK Insulin Glargine (Insulin Glargine,Hum.Rec.Anlog 100 Unit/Ml 10 Ml Vial) 50 unit SUBCUT DAILY [facility] Last Admin: 11/28/21 08:14 Dose: 50 unit Documented By: VICK Insulin Human Lispro (Insulin Lispro 100 Unit/Ml 3 Ml Vial) 0 unit SUBCUT QIDACHS [facility]; Protocol Last Admin: 11/28/21 08:14 Dose: 6 unit Documented By: VICK Lisinopril (Lisinopril 20 Mg Tablet) 20 mg PO DAILY [facility]; Protocol Last Admin: 11/28/21 08:15 Dose: 20 mg Documented By: VICK Ondansetron HCl (Ondansetron Hcl 4 Mg/2 Ml Vial) 4 mg IVPUSH Q8H PRN PRN Reason: Nausea and Vomiting Oxcarbazepine (Oxcarbazepine 300 Mg Tablet) 300 mg PO BEDTIME [facility] Last Admin: 11/27/21 20:05 Dose: 300 mg Documented By: MORRINL Oxycodone HCl (Oxycodone Hcl Immed Release 5 Mg Tablet) 5 mg PO Q6H PRN PRN Reason: Pain, Moderate (Pain Scale 4-6 Last Admin: 11/27/21 10:59 Dose: 5 mg Documented By: KASEY Pharmacy Consult (Consult Rx Perform Med Rec) 1 each MISCELLANE ONCE PRN PRN Reason: Consult order Pharmacy Consult (Consult Rx Vancomycin Dosing) 1 each MISCELLANE DAILY PRN PRN Reason: Consult order Risperidone (Risperidone 2 Mg Tablet) 2 mg PO BID [facility] Last Admin: 11/28/21 08:15 Dose: 2 mg Documented By: VICK Sodium Chloride (0.9 % Sodium Chloride Flush 3 Ml Syringe) 3 ml IVFLUSH QSHIFT [facility] Last Admin: 11/28/21 08:15 Dose: 3 ml Documented By: VICK Labs CBC & Chem 7: 11/26/21 05:58 11/28/21 07:07 Labs: Laboratory Results - last 24 hr 11/27/21 11/27/21 11/27/21 11:12 15:22 19:37 Estim Creat Clear Calc Estimated GFR POC Glucose 298 H 375 H* 355 H* Vancomycin Trough 11/28/21 11/28/21 11/28/21 07:07 07:07 07:12 Estim Creat Clear Calc 94.9 Estimated GFR > 60 POC Glucose 299 H Vancomycin Trough 14.6 Microbiology Microbiology Results: Microbiology 11/25/21 08:49 Gram Stain - Final Head Routine Culture - Final Methicillin Res Staph Aureus 11/24/21 17:14 Gram Stain - Final Foot - Wound Routine Culture - Final Methicillin Res Staph Aureus Assessment and Plan (1) Hyponatremia: Status: Acute (2) Acute on chronic osteomyelitis: Status: Acute (3) Hyperglycemia: Status: Acute Plan 51-year-old male with history of insulin-dependent type 2 diabetes with peripheral artery disease s/p right tibial angioplasty 09/10/21, hypertension, hepatitis-C, bipolar disorder, schizophrenia, and chronic osteomyelitis with nonhealing diabetic foot ulcer of the right 5th metatarsal being admitted for acute on chronic osteolyelitis with nonhealing diabetic foot ulcer of the right 5th metatarsal head. Acute on chronic diabetes related osteomyelitis 2/2 Nonhealing ulcer overlying right metataral head s/p open fracture 5th toe 3 months ago with nonhealing ulcer Xray right toes showed acute on chronic osteomyelitis of right 5th metatarsal head and proximal phalnyx Failed outpatient IV antibiotics Blood cultures negative Continue IV vanco and zosyn Id recommended amputation 5th toe for failed antibiotic treatment Wound culture MRSA Vascular surgery to do angiogram with plan for 5th toe amputation OBEY Improved back to baseline Monitor BMP Scalp infected sebaceous cyst Drain by surgical team Continue antibiotics hyperglycemia 2/2 Uncontrolled insulin dependent type 2 diabetes Still elevated in 250s continue Lantus to 50 units daily SSI Diabetic diet PAD s/p right popliteal angioplasty Continue dual antiplatelet therapy Vascular surgery following HTN Continue amlodipine and clonidine lisinopril on hold for obey Bipolar disorder/schizophrenia risperdal hyponatremia pseudohyponatremia from hyperglycemia DVT prophylaxis lovenox Full code reason for continued hospitalization:needs amputation prior to dc Quality Stroke Does the patient have a stroke diagnosis?: No VTE Prior VTE?: No VTE Risk Level:: Medical - moderate - high VTE Device Contraindication: Treatment Not Indicated VTE Drug Contraindication: N/A - Med Ordered
[2021-11-28 11:13] LABS: Glucose, Whole Blood 252 mg/dL (60-115)
[2021-11-28 11:28] VITALS: BP 126/62; PULSE 81; RESP 18; TEMP 36.4; O2SAT 98
--- NOTE | 2021-11-28 11:50 | MHC.CM.PN ---
PLAN IS FOR ANGIO TOMORROW, FOLLOWED BY AMPUTATION FRIDAY NO PLAN FOR IV ABX REFERRAL PLACED TO [facility] TO FOLLOW FOR POSSIBLE SERVICE NEEDS. CASE MANAGEMENT FOLLOWING
--- NOTE | 2021-11-28 12:18 | P.PNVS_ITS ---
Subjective Subjective Date of Service: 11/28/21 Patient reports: no new complaints and feels better Interval history: Patient seen and examined. No events overnight. Reports his right leg is doing fairly well. Concerned about the overall status of his foot. He is also concerned about his ultrasound results. Now for follow-up. Shingle Catcher was present during time of discussion. Physical Exam Vital Signs: Vital Signs: Last Vital Signs Temp 97.5 F 11/28/21 11:28 Pulse 81 11/28/21 11:28 Resp 18 11/28/21 11:28 BP 126/62 11/28/21 11:28 Pulse Ox 98 11/28/21 11:28 O2 Del Method 11/28/21 11:28 BMI result Body Mass Index 36.8 Const: General: cooperative, healthy appearing and no acute distress Orientation/consciousness: oriented to person, oriented to place and oriented to time HEENT: Head: Yes normal to inspection Neck: Carotids: no bruits Chest: Chest palpation & inspection: normal inspection of the chest Resp: Effort & Inspection: normal respiratory effort and able to speak in complete sentences Auscultation: clear to auscultation bilaterally Cardio: Rate: regular rate Heart sounds: S1 normal heart sound present and S2 normal heart sound present GI: Inspection: Yes normal to inspection Skin: General skin exam: no rashes or lesions noted Wounds: wounds noted ( Right lateral foot ulcer) Neuro: General: oriented to person, oriented to place, oriented to time and CN's II-XI intact bilaterally Extrem: General: Yes normal to inspection, Yes full ROM and Yes no clubbing, cyanosis or edema Psych: Appearance: grossly normal and well kempt Speech and movement: Normal speech and movement present Affect: normal affect Progress Note: A&P Assessment and plan (1) PAD (peripheral artery disease): Status: Acute Assessment and Plan: Patient has a nonhealing ulcer. I have discussed the pathophysiology of peripheral vascular disease with the patient. I have also discussed risk factor modification. I have reviewed the patient's arterial testing which reveals right popliteal and tibial disease. the patient would benefit from a right leg endovascular peripheral angiogram with possible angioplasty, stent, and/or atherectomy. This has been discussed in detail with the patient along with risks, benefits, and complications. This includes but is not limited to bleeding, infection, heart attack, need for emergent surgical repair, limb ischemia, blood vessel damage, bleeding, puncture, kidney injury, bruising, twyla rgic reaction, and skin reaction. The patient demonstrates a clear understanding. in addition I personally made a phone call to his brother Awais and discussed the case in detail with him as well. He agrees regarding proceeding as well.We will schedule for the next appropriate time. Thank you for allowing us to assist in this patient's care. Time Spent With Patient Time: Total time spent is greater than 50% in coordination of care (as documented) at patient's floor/unit and/or counseling patient: Procedures Date of Service Date of Service: 11/28/21 Quality Stroke Does the patient have a stroke diagnosis?: No VTE Prior VTE?: No VTE Risk Level:: Medical - moderate - high VTE Device Contraindication: Treatment Not Indicated VTE Drug Contraindication: N/A - Med Ordered
[2021-11-28 12:21] VITALS: BP 160/67; PULSE 73; RESP 19; TEMP 37.4; O2SAT 96
[2021-11-28] MEDS: 0.9 % Sodium Chloride 1,000 ML 100 ML IVCONT ×2 (15:11→22:18)
[2021-11-28 15:27] LABS: Glucose, Whole Blood 282 mg/dL (60-115)
[2021-11-28 19:34] VITALS: BP 132/88; PULSE 80; RESP 18; TEMP 36.9; O2SAT 96
[2021-11-28 20:02] LABS: Glucose, Whole Blood 386 mg/dL (60-115)
[2021-11-28] MEDS: OXcarbazepine 300 MG TABLET PO (21:10)
[2021-11-28] MEDS: Enoxaparin Sodium 40 MG/0.4 ML SYRINGE SUBCUT (22:10)
[2021-11-28] MEDS: vancomycin HCL 1,500 MG in 0.9 % Sodium Chloride 500 ML 333.33 MG IV (22:11)
[2021-11-29] VITALS (10 sets, daily range): BP systolic 141–181; BP diastolic 62–98; PULSE 73–88; RESP 16–18; TEMP 36.3–37.4; O2SAT 95–100
[2021-11-29 06:57] LABS: Hematocrit 32.2 % (42.0-52.0); Hemoglobin 10.7 g/dl (14.0-18.0); Mean Corpuscular HGB Conc 33.2 g/dl (31.0-36.0); Mean Corpuscular Hemoglobin 25.2 pg (27.0-33.0); Mean Corpuscular Volume 75.8 fL (80.0-98.0); Mean Platelet Volume 10.6 fL (9.4-12.4); Platelet Count 289 X10*3/uL (160-400); Red Blood Count 4.25 X10*6/uL (4.60-5.80); Red Cell Distribution Width 13.1 % (11.0-16.0); White Blood Count 7.9 X10*3/uL (4.8-10.8)
[2021-11-29 07:12] LABS: Anion Gap 15 (12-20); Blood Urea Nitrogen 19 mg/dL (9-16); Calcium 8.6 mg/dL (8.4-10.2); Carbon Dioxide 24 mmol/L (22-29); Chloride 98 mmol/L (96-108); Creatinine Clr Calc Pharmacy 78.7; Estimated Glomerular Filt Rate 56; Potassium 4.7 mmol/L (3.3-5.1); Sodium 132 mmol/L (135-145)
[2021-11-29 07:47] LABS: Glucose, Whole Blood 316 mg/dL (60-115)
[2021-11-29 08:09] LABS: Glucose Fasting 377 mg/dL (60-99)
[2021-11-29] MEDS: iohexoL 300 MG/ML 100 ML INFUS..BTL IV (09:08)
--- NOTE | 2021-11-29 09:31 | W.PM.OPN ---
Operative Note Operative Note Date of Service: 11/29/21 Narrative: Angiogram report from [facility] Preoperative diagnosis: Atherosclerosis of Right lower extremity with nonhealing ulcer Postoperative diagnosis: Same Procedure: 1. Ultrasound-guided left common femoral access 2. Aortogram with right lower extremity runoff 3. angioplasty of right posterior tibial artery 4. angioplasty of right anterior tibial artery Surgeon:Angel Holt M.D., FACS, RPVI Battery Container Inspector:None Anesthesia: Local with moderate conscious sedation. Total intraservice moderate sedation time was 53 minutes. I monitored the patient's level of consciousness and physiologic status continuously throughout the procedure. Specimens:none Drains:none Estimated blood loss: Less than 10 ml Implant: none Indications: 51-year-old diabetic gentleman with a nonhealing right 5th toe lateral foot ulceration presents for endovascular intervention. Procedure was discussed with the patient and yesterday by phone with the patients brother as well. The patient has signed the informed consent after reviewing risks, complications, benefits, and alternatives previously discussed with the patient. The patient was given the opportunity to ask any additional questions or voice any concerns. All questions were answered to the patient's satisfaction. Procedure in detail: Patient was brought to the angiography suite prior to which a time-out was called for patient identification and site verification. Bilateral groins were prepped and draped in the standard surgical fashion. Under ultrasound guidance Left common femoral was punctured with micro puncture needle and wire. Subsequently a precision 4 Dutch sheath was then placed. Bentson wire was advanced to the level of the aorta. 4 Dutch Flush catheter was brought up and parked at the level of the renal arteries. Aortogram was then undertaken. Catheter was brought down to the level of the iliac bifurcation. Iliacs were subsequently imaged. Catheter was then brought in up and over to the right side SFA. Runoff study was then undertaken. it was noted that he had below-knee disease. At this time we administered 8000 units of systemic heparin. After 5 minutes of circulation time up and over 6 Dutch sheath was then placed. We brought a Glidewire Advantage all the way down to the tibial vessels. We confirmed true lumen with a trail Blazer catheter instilled with contrast. We then brought in a Nitrex wire 014 down into the posterior tibial artery. We plasty did this vessel with a 2.5 x 80 balloon. We subsequently redirected our wire down to the anterior tibial this had more hardened lesions. We plasty this area with 2 subsequent insufflations of 2.5 x 40 chocolate balloon. Once this was all accomplished completion angiogram demonstrated good result. Catheter wire sheath were brought to the ipsilateral side. Groin was imaged. StarClose closure device was deployed. Patient tolerated the procedure well. Returned to recovery with stable vitals. Interpretation of films: 1. Ultrasound demonstrates appropriate femoral puncture. Image of which was saved. 2. Aortogram demonstrates appropriate caliber aorta. Minimal disease. Appropriate take-off of the renals. 3. Iliac images demonstrate No significant disease 4. right Leg Common femoral artery: no significant disease Profundus Femoris: No significant disease Superficial femoral artery: patent Popliteal artery (p1,p2,p3): mild to moderate disease at the P1 segment not flow limiting Anterior tibial artery: patent down to ankle after plasty Peroneal artery: diminutive Posterior tibial artery: patent down to ankle after plasty Dorsalis pedis/plantar arch: in complete Conclusion: 1. successful plasty of right anterior tibial and posterior tibial arteries. 2. Anticoagulation status: Continue aspirin and Plavix for 6 months This note is constructed using voice recognition software. While every effort has been made to ensure accuracy, baggageman errors may have been included. Thank you for allowing me to participate in the care of your patient. Yours sincerely, Angel Holt MD, FACS, R.P.V.I.
--- NOTE | 2021-11-29 11:22 | P.PNIM_ITS ---
Subjective Subjective Date of Service: 11/29/21 Interval History: cc: nonhealing DFU interval history: no new complaints Cardiovascular Cardiovascular: Reports no additional cardiovascular complaints Respiratory Respiratory: Reports no additional respiratory complaints Physical Exam Vital Signs: Vital Signs: Last Vital Signs Temp 97.6 F 11/29/21 10:25 Pulse 74 11/29/21 10:25 Resp 18 11/29/21 10:25 BP 165/62 H 11/29/21 10:25 Pulse Ox 97 11/29/21 10:25 O2 Del Method 11/29/21 10:25 BMI result Body Mass Index 36.8 Const: General: cooperative, healthy appearing and no acute distress Orientation/consciousness: oriented to person, oriented to place and oriented to time HEENT: Head: Yes normal to inspection Neck: Carotids: no bruits Chest: Chest palpation & inspection: normal inspection of the chest Resp: Effort & Inspection: normal respiratory effort and able to speak in complete sentences Auscultation: clear to auscultation bilaterally Cardio: Rate: regular rate Heart sounds: S1 normal heart sound present and S2 normal heart sound present GI: Inspection: Yes normal to inspection Skin: General skin exam: no rashes or lesions noted Wounds: wounds noted ( Right lateral foot ulcer) Neuro: General: oriented to person, oriented to place, oriented to time and CN's II-XI intact bilaterally Extrem: General: Yes normal to inspection, Yes full ROM and Yes no clubbing, cyanosis or edema Psych: Appearance: grossly normal and well kempt Speech and movement: Normal speech and movement present Affect: normal affect Objective Data Active Medications Acetaminophen (Acetaminophen 325 Mg Tablet) 650 mg PO Q6H PRN PRN Reason: Pain, Severe (Pain Scale 7-10) Last Admin: 11/27/21 16:16 Dose: 650 mg Documented By: CHELSEY Amlodipine Besylate (Amlodipine Besylate 5 Mg Tablet) 5 mg PO DAILY [facility]; Protocol Last Admin: 11/28/21 08:15 Dose: 5 mg Documented By: VICK Aspirin (Aspirin Enteric Coated 81 Mg Tablet.) 81 mg PO DAILY [facility] Last Admin: 11/28/21 08:15 Dose: 81 mg Documented By: VICK Clonidine HCl (Clonidine Hcl 0.1 Mg Tablet) 0.1 mg PO BID [facility]; Protocol Last Admin: 11/28/21 21:10 Dose: 0.1 mg Documented By: TANISHA Clopidogrel Bisulfate (Clopidogrel Bisulfate 75 Mg Tablet) 75 mg PO DAILY [facility] Last Admin: 11/28/21 08:15 Dose: 75 mg Documented By: VICK Dextrose (Dextrose 50 % 25 Gm/50 Ml Syringe) 25 gm IVPUSH Q15M PRN; Protocol PRN Reason: per Hypoglycemia Standing Ord. Enoxaparin Sodium (Enoxaparin Sodium 40 Mg/0.4 Ml Syringe) 40 mg SUBCUT Q24H [facility] Last Admin: 11/28/21 22:10 Dose: 40 mg Documented By: TANISHA Glucose (Glucose Gel 15 Gm Gel..Gram.) 15 gm PO Q15M PRN; Protocol PRN Reason: per Hypoglycemia Standing Ord. Hydromorphone HCl (Hydromorphone Hcl 1 Mg/Ml Syringe) 0.5 mg IVPUSH Q4H PRN; Protocol PRN Reason: Pain, Severe (Pain Scale 7-10) Last Admin: 11/28/21 21:09 Dose: 0.5 mg Documented By: TANISHA Sodium Chloride (Ns) 1,000 mls @ 100 mls/hr IVCONT .Q10H [facility] Last Admin: 11/28/21 22:18 Dose: 100 mls/hr Documented By: TANISHA Vancomycin HCl 1,500 mg/ (Sodium Chloride) 500 mls @ 333.333 mls/hr IV Q12H [facility] Piperacillin Sod/Tazobactam (Sod 3.375 gm/ Sodium Chloride) 50 mls @ 100 mls/hr IV Q6H [facility] Insulin Glargine (Insulin Glargine,Hum.Rec.Anlog 100 Unit/Ml 10 Ml Vial) 50 unit SUBCUT DAILY [facility] Last Admin: 11/28/21 08:14 Dose: 50 unit Documented By: VICK Insulin Human Lispro (Insulin Lispro 100 Unit/Ml 3 Ml Vial) 0 unit SUBCUT QIDACHS [facility]; Protocol Last Admin: 11/28/21 22:10 Dose: 10 unit Documented By: TANISHA Lisinopril (Lisinopril 20 Mg Tablet) 20 mg PO DAILY [facility]; Protocol Last Admin: 11/28/21 08:15 Dose: 20 mg Documented By: VICK Ondansetron HCl (Ondansetron Hcl 4 Mg/2 Ml Vial) 4 mg IVPUSH Q8H PRN PRN Reason: Nausea and Vomiting Oxcarbazepine (Oxcarbazepine 300 Mg Tablet) 300 mg PO BEDTIME [facility] Last Admin: 11/28/21 21:10 Dose: 300 mg Documented By: TANISHA Oxycodone HCl (Oxycodone Hcl Immed Release 5 Mg Tablet) 5 mg PO Q6H PRN PRN Reason: Pain, Moderate (Pain Scale 4-6 Last Admin: 11/27/21 10:59 Dose: 5 mg Documented By: KASEY Pharmacy Consult (Consult Rx Perform Med Rec) 1 each MISCELLANE ONCE PRN PRN Reason: Consult order Pharmacy Consult (Consult Rx Vancomycin Dosing) 1 each MISCELLANE DAILY PRN PRN Reason: Consult order Risperidone (Risperidone 2 Mg Tablet) 2 mg PO BID [facility] Last Admin: 11/28/21 21:10 Dose: 2 mg Documented By: TANISHA Sodium Chloride (0.9 % Sodium Chloride Flush 3 Ml Syringe) 3 ml IVFLUSH QSHIFT [facility] Last Admin: 11/28/21 22:18 Dose: 3 ml Documented By: TANISHA Labs CBC & Chem 7: 11/29/21 05:48 11/29/21 05:48 Labs: Laboratory Results - last 24 hr 11/28/21 11/28/21 11/29/21 15:23 19:53 05:48 MCV 75.8 L MCH 25.2 L MCHC 33.2 RDW 13.1 Plt Count 289 MPV 10.6 Absolute Nucleated RBC 0.000 Nucleated RBC % (auto) 0.0 Anion Gap Estim Creat Clear Calc Estimated GFR POC Glucose 282 H 386 H* Fasting Glucose Calcium 11/29/21 11/29/21 05:48 07:42 MCV MCH MCHC RDW Plt Count MPV Absolute Nucleated RBC Nucleated RBC % (auto) Anion Gap 15 Estim Creat Clear Calc 78.7 Estimated GFR 56 POC Glucose 316 H Fasting Glucose 377 H* Calcium 8.6 Assessment and Plan (1) Hyponatremia: Status: Acute (2) Acute on chronic osteomyelitis: Status: Acute (3) Hyperglycemia: Status: Acute Plan 51-year-old male with history of insulin-dependent type 2 diabetes with peripheral artery disease s/p right tibial angioplasty 09/10/21, hypertension, hepatitis-C, bipolar disorder, schizophrenia, and chronic osteomyelitis with nonhealing diabetic foot ulcer of the right 5th metatarsal being admitted for acute on chronic osteolyelitis with nonhealing diabetic foot ulcer of the right 5th metatarsal head. Acute on chronic diabetes related osteomyelitis 2/2 Nonhealing ulcer overlying right metataral head s/p open fracture 5th toe 3 months ago with nonhealing ulcer Xray right toes showed acute on chronic osteomyelitis of right 5th metatarsal head and proximal phalnyx Failed outpatient IV antibiotics Blood cultures negative Continue IV vanco and zosyn Id recommended amputation 5th toe for failed antibiotic treatment Wound culture MRSA angiogram today with eventual plan for 5th toe amputation OBEY Improved back to baseline Monitor BMP Scalp infected sebaceous cyst Drain by surgical team Continue antibiotics hyperglycemia 2/2 Uncontrolled insulin dependent type 2 diabetes Still elevated in 250s continue Lantus to 50 units daily SSI Diabetic diet PAD s/p right popliteal angioplasty Continue dual antiplatelet therapy Vascular surgery following HTN Continue amlodipine and clonidine lisinopril on hold for obey Bipolar disorder/schizophrenia risperdal hyponatremia pseudohyponatremia from hyperglycemia DVT prophylaxis lovenox Full code reason for continued hospitalization:needs amputation prior to dc Quality Stroke Does the patient have a stroke diagnosis?: No VTE Prior VTE?: No VTE Risk Level:: Medical - moderate - high VTE Device Contraindication: Treatment Not Indicated VTE Drug Contraindication: N/A - Med Ordered
[2021-11-29] MEDS: lisinopriL 20 MG TABLET PO (11:25)
[2021-11-29] MEDS: risperiDONE 2 MG TABLET PO ×2 (11:25→22:03)
[2021-11-29] MEDS: Clopidogrel Bisulfate 75 MG TABLET PO (11:25)
[2021-11-29] MEDS: cloNIDine HCL 0.1 MG TABLET PO ×2 (11:25→22:03)
[2021-11-29] MEDS: Aspirin Enteric Coated 81 MG TABLET.DR PO (11:25)
[2021-11-29] MEDS: amLODIPine Besylate 5 MG TABLET PO (11:26)
[2021-11-29] MEDS: Insulin Glargine,Hum.rec.anlog 100 UNIT/ML 10 ML VIAL 50 UNIT SUBCUT (11:26)
[2021-11-29 11:40] LABS: Glucose, Whole Blood 282 mg/dL (60-115)
[2021-11-29] MEDS: Piperacillin Sodium/Tazobactam 3.375 GM in 0.9 % Sodium Chloride 50 ML IV ×3 (11:43→23:59)
[2021-11-29] MEDS: Insulin Lispro 100 UNIT/ML 3 ML VIAL SUBCUT ×3 (11:58→22:03)
[2021-11-29] MEDS: vancomycin HCL 1,500 MG in 0.9 % Sodium Chloride 500 ML 333.33 MG IV (12:03)
--- NOTE | 2021-11-29 15:46 | HO.VASCPN ---
Subjective Subjective Date of Service: 11/29/21 Patient reports: no new complaints and feels better Interval history: Patient seen and examined. No significant events overnight. Appears to be doing well status post angiogram. Pain well controlled. He reports that the foot actually feels warmer. He is now for follow-up. Physical Exam Vital Signs: Vital Signs: Last Vital Signs Temp 97.7 F 11/29/21 11:38 Pulse 73 11/29/21 11:38 Resp 18 11/29/21 11:38 BP 163/88 H 11/29/21 11:38 Pulse Ox 98 11/29/21 11:38 O2 Del Method 11/29/21 11:38 BMI result Body Mass Index 36.8 Skin: Other: Right 5th toe ulcer penetrating to bone Progress Note: A&P Assessment and plan (1) PAD (peripheral artery disease): Status: Acute Assessment and Plan: in short patient has nonhealing right 5th toe ulcer. He will require a right 5th toe amputation. Risks benefits complications were discussed in detail with the patient with filer metal patterns present. He has agreed to move forward. We will schedule for tomorrow. Thank you for allowing us to participate in his care. Time Spent With Patient Time: Total time spent is greater than 50% in coordination of care (as documented) at patient's floor/unit and/or counseling patient: Procedures Date of Service Date of Service: 11/29/21 Quality Stroke Does the patient have a stroke diagnosis?: No VTE Prior VTE?: No VTE Risk Level:: Medical - moderate - high VTE Device Contraindication: Treatment Not Indicated VTE Drug Contraindication: N/A - Med Ordered
[2021-11-29 16:14] LABS: Glucose, Whole Blood 321 mg/dL (60-115)
[2021-11-29] MEDS: HYDROmorphone HCl 1 MG/ML SYRINGE 0.5 MG IVPUSH (16:25)
[2021-11-29 20:01] LABS: Glucose, Whole Blood 445 mg/dL (60-115)
[2021-11-29] MEDS: Enoxaparin Sodium 40 MG/0.4 ML SYRINGE SUBCUT (22:03)
[2021-11-29] MEDS: OXcarbazepine 300 MG TABLET PO (22:03)
[2021-11-29] MEDS: 0.9 % Sodium Chloride Flush 3 ML SYRINGE IVFLUSH (22:03)
[2021-11-29 22:42] LABS: Vancomycin Trough 20.7 mcg/mL (10.0-20.0)
--- NOTE | 2021-11-29 22:51 | HE.PHANOTE ---
Vancomycin Dosing Addendum Vancomycin trough 20.7. Creatinine increased from 1.12 yesterday to 1.35 today. Decreasing dose to 1000 mg q12h for predicted auc of 533. Midnight dose held and random level at 11/30/21 @0600. Check renal fxn/level and adjust vancomycin accordingly.
[2021-11-30] VITALS (14 sets, daily range): BP systolic 134–196; BP diastolic 67–91; PULSE 63–97; RESP 14–20; TEMP 36.1–36.6; O2SAT 95–100; BMI 36.5
[2021-11-30] MEDS: 0.9 % Sodium Chloride 1,000 ML 100 ML IVCONT (05:50)
[2021-11-30] MEDS: Piperacillin Sodium/Tazobactam 3.375 GM in 0.9 % Sodium Chloride 50 ML IV ×3 (05:51→17:34)
[2021-11-30 06:55] LABS: Hematocrit 31.9 % (42.0-52.0); Hemoglobin 10.6 g/dl (14.0-18.0); Mean Corpuscular HGB Conc 33.2 g/dl (31.0-36.0); Mean Corpuscular Hemoglobin 25.1 pg (27.0-33.0); Mean Corpuscular Volume 75.6 fL (80.0-98.0); Mean Platelet Volume 10.5 fL (9.4-12.4); Platelet Count 276 X10*3/uL (160-400); Red Blood Count 4.22 X10*6/uL (4.60-5.80); Red Cell Distribution Width 13.3 % (11.0-16.0); White Blood Count 7.3 X10*3/uL (4.8-10.8)
[2021-11-30 07:28] LABS: Anion Gap 14 (12-20); Blood Urea Nitrogen 17 mg/dL (9-16); Calcium 8.6 mg/dL (8.4-10.2); Carbon Dioxide 24 mmol/L (22-29); Chloride 101 mmol/L (96-108); Creatinine Clr Calc Pharmacy 84.3; Estimated Glomerular Filt Rate > 60; Glucose Fasting 302 mg/dL (60-99); Potassium 4.5 mmol/L (3.3-5.1); Sodium 134 mmol/L (135-145)
[2021-11-30 07:46] LABS: Glucose, Whole Blood 260 mg/dL (60-115)
--- NOTE | 2021-11-30 07:51 | HE.PHANOTE ---
Vancomycin Dosing Addendum Patients Scr came back this morning at 1.26, down from 1.35. Patients trough yesterday was 20.7, midnight dose held. Patients level was 12 md/L this morning. Continuing at 1000 mg Q12 H. Level put in for 12/01 @1800. Predicted AUC 423 mg/L/hr.
[2021-11-30] MEDS: Clopidogrel Bisulfate 75 MG TABLET PO (08:43)
[2021-11-30] MEDS: amLODIPine Besylate 5 MG TABLET PO (08:43)
[2021-11-30] MEDS: cloNIDine HCL 0.1 MG TABLET PO ×2 (08:44→19:37)
[2021-11-30] MEDS: lisinopriL 20 MG TABLET PO (08:44)
[2021-11-30] MEDS: risperiDONE 2 MG TABLET PO ×2 (08:44→19:37)
[2021-11-30] MEDS: Insulin Lispro 100 UNIT/ML 3 ML VIAL SUBCUT ×3 (08:44→20:16)
[2021-11-30] MEDS: vancomycin HCL 1,000 MG in 0.9 % Sodium Chloride 250 ML 270 MG IV ×2 (08:44→19:37)
[2021-11-30] MEDS: Aspirin Enteric Coated 81 MG TABLET.DR PO (08:44)
[2021-11-30] MEDS: oxyCODONE HCl Immed Release 5 MG TABLET PO ×4 (08:48→19:53)
--- NOTE | 2021-11-30 10:14 | HO.PM.IMPN ---
Subjective Subjective Date of Service: 11/30/21 Interval History: cc: nonhealing DFU interval history: no new complaints Cardiovascular Cardiovascular: Reports no additional cardiovascular complaints Respiratory Respiratory: Reports no additional respiratory complaints Physical Exam Vital Signs: Vital Signs: Last Vital Signs Temp 97.7 F 11/30/21 08:58 Pulse 78 11/30/21 08:58 Resp 18 11/30/21 08:58 BP 134/75 11/30/21 08:58 Pulse Ox 97 11/30/21 08:58 O2 Del Method 11/30/21 08:58 BMI result Body Mass Index 36.8 Skin: Other: Right 5th toe ulcer penetrating to bone Objective Data Active Medications Acetaminophen (Acetaminophen 325 Mg Tablet) 650 mg PO Q6H PRN PRN Reason: Pain, Severe (Pain Scale 7-10) Last Admin: 11/27/21 16:16 Dose: 650 mg Documented By: CHELSEY Amlodipine Besylate (Amlodipine Besylate 5 Mg Tablet) 5 mg PO DAILY [facility]; Protocol Last Admin: 11/30/21 08:43 Dose: 5 mg Documented By: ROCIO Aspirin (Aspirin Enteric Coated 81 Mg Tablet.Dr) 81 mg PO DAILY [facility] Last Admin: 11/30/21 08:44 Dose: 81 mg Documented By: ROCIO Clonidine HCl (Clonidine Hcl 0.1 Mg Tablet) 0.1 mg PO BID [facility]; Protocol Last Admin: 11/30/21 08:44 Dose: 0.1 mg Documented By: ROCIO Clopidogrel Bisulfate (Clopidogrel Bisulfate 75 Mg Tablet) 75 mg PO DAILY [facility] Last Admin: 11/30/21 08:43 Dose: 75 mg Documented By: ROCIO Dextrose (Dextrose 50 % 25 Gm/50 Ml Syringe) 25 gm IVPUSH Q15M PRN; Protocol PRN Reason: per Hypoglycemia Standing Ord. Enoxaparin Sodium (Enoxaparin Sodium 40 Mg/0.4 Ml Syringe) 40 mg SUBCUT Q24H [facility] Last Admin: 11/29/21 22:03 Dose: 40 mg Documented By: TANISHA Glucose (Glucose Gel 15 Gm Gel..Gram.) 15 gm PO Q15M PRN; Protocol PRN Reason: per Hypoglycemia Standing Ord. Sodium Chloride (Ns) 1,000 mls @ 100 mls/hr IVCONT .Q10H [facility] Last Admin: 11/30/21 05:50 Dose: 100 mls/hr Documented By: TANISHA Piperacillin Sod/Tazobactam (Sod 3.375 gm/ Sodium Chloride) 50 mls @ 100 mls/hr IV Q6H [facility] Last Infusion: 11/30/21 06:43 Dose: 0 mls/hr Documented By: TANISHA Vancomycin HCl 1,000 mg/ (Sodium Chloride) 270 mls @ 270 mls/hr IV Q12H [facility] Last Infusion: 11/30/21 10:05 Dose: 0 mls/hr Documented By: ROCIO Insulin Glargine (Insulin Glargine,Hum.Rec.Anlog 100 Unit/Ml 10 Ml Vial) 50 unit SUBCUT DAILY [facility] Last Admin: 11/30/21 08:42 Dose: Not Given Documented By: ROCIO Non-Admin Reason: NPO Insulin Human Lispro (Insulin Lispro 100 Unit/Ml 3 Ml Vial) 0 unit SUBCUT QIDACHS [facility]; Protocol Last Admin: 11/30/21 08:44 Dose: 6 unit Documented By: ROCIO Lisinopril (Lisinopril 20 Mg Tablet) 20 mg PO DAILY [facility]; Protocol Last Admin: 11/30/21 08:44 Dose: 20 mg Documented By: ROCIO Ondansetron HCl (Ondansetron Hcl 4 Mg/2 Ml Vial) 4 mg IVPUSH Q8H PRN PRN Reason: Nausea and Vomiting Oxcarbazepine (Oxcarbazepine 300 Mg Tablet) 300 mg PO BEDTIME [facility] Last Admin: 11/29/21 22:03 Dose: 300 mg Documented By: TANISHA Oxycodone HCl (Oxycodone Hcl Immed Release 5 Mg Tablet) 5 mg PO Q6H PRN PRN Reason: Breakthrough Pain Last Admin: 11/30/21 08:48 Dose: 5 mg Documented By: ROCIO Pharmacy Consult (Consult Rx Perform Med Rec) 1 each MISCELLANE ONCE PRN PRN Reason: Consult order Pharmacy Consult (Consult Rx Vancomycin Dosing) 1 each MISCELLANE DAILY PRN PRN Reason: Consult order Risperidone (Risperidone 2 Mg Tablet) 2 mg PO BID [facility] Last Admin: 11/30/21 08:44 Dose: 2 mg Documented By: ROCIO Sodium Chloride (0.9 % Sodium Chloride Flush 3 Ml Syringe) 3 ml IVFLUSH QSHIFT [facility] Last Admin: 11/30/21 07:59 Dose: Not Given Documented By: ROCIO Non-Admin Reason: IV Running Labs CBC & Chem 7: 11/30/21 06:11 11/30/21 06:11 Labs: Laboratory Results - last 24 hr 11/29/21 11/29/21 11/29/21 11:14 15:55 19:54 MCV MCH MCHC RDW Plt Count MPV Absolute Nucleated RBC Nucleated RBC % (auto) Anion Gap Estim Creat Clear Calc Estimated GFR POC Glucose 282 H 321 H 445 H* Fasting Glucose Calcium Vancomycin Trough Random Vancomycin 11/29/21 11/30/21 11/30/21 21:59 06:11 06:11 MCV 75.6 L MCH 25.1 L MCHC 33.2 RDW 13.3 Plt Count 276 MPV 10.5 Absolute Nucleated RBC 0.000 Nucleated RBC % (auto) 0.0 Anion Gap 14 Estim Creat Clear Calc 84.3 Estimated GFR > 60 POC Glucose Fasting Glucose 302 H Calcium 8.6 Vancomycin Trough 20.7 H Random Vancomycin 11/30/21 11/30/21 06:11 07:36 MCV MCH MCHC RDW Plt Count MPV Absolute Nucleated RBC Nucleated RBC % (auto) Anion Gap Estim Creat Clear Calc Estimated GFR POC Glucose 260 H Fasting Glucose Calcium Vancomycin Trough Random Vancomycin 12.0 L Microbiology Microbiology Results: Microbiology 11/24/21 17:14 Blood Culture - Final Blood - Venous No growth after 5 days. 11/24/21 16:38 Blood Culture - Final Blood - Venous No growth after 5 days. Assessment and Plan (1) Hyponatremia: Status: Acute (2) Acute on chronic osteomyelitis: Status: Acute (3) Hyperglycemia: Status: Acute Plan 51-year-old male with history of insulin-dependent type 2 diabetes with peripheral artery disease s/p right tibial angioplasty 09/10/21, hypertension, hepatitis-C, bipolar disorder, schizophrenia, and chronic osteomyelitis with nonhealing diabetic foot ulcer of the right 5th metatarsal being admitted for acute on chronic osteolyelitis with nonhealing diabetic foot ulcer of the right 5th metatarsal head. Acute on chronic diabetes related osteomyelitis 2/2 Nonhealing ulcer overlying right metataral head s/p open fracture 5th toe 3 months ago with nonhealing ulcer Xray right toes showed acute on chronic osteomyelitis of right 5th metatarsal head and proximal phalnyx Failed outpatient IV antibiotics Blood cultures negative Continue IV vanco and zosyn Id recommended amputation 5th toe for failed antibiotic treatment Wound culture MRSA angiogram with angioplasty 11/29/21, plan for right 5th toe amupation today OBEY Improved back to baseline Monitor BMP Scalp infected sebaceous cyst Drain by surgical team Continue antibiotics hyperglycemia 2/2 Uncontrolled insulin dependent type 2 diabetes Still elevated in 250s continue Lantus to 50 units daily SSI Diabetic diet PAD s/p right popliteal angioplasty Continue dual antiplatelet therapy Vascular surgery following HTN Continue amlodipine and clonidine lisinopril on hold for obey Bipolar disorder/schizophrenia risperdal hyponatremia pseudohyponatremia from hyperglycemia DVT prophylaxis lovenox Full code reason for continued hospitalization:needs amputation prior to dc Quality Stroke Does the patient have a stroke diagnosis?: No VTE Prior VTE?: No VTE Risk Level:: Medical - moderate - high VTE Device Contraindication: Treatment Not Indicated VTE Drug Contraindication: N/A - Med Ordered
[2021-11-30 11:10] LABS: Glucose, Whole Blood 220 mg/dL (60-115)
--- NOTE | 2021-11-30 12:32 | MHC.CM.PN ---
PER MD ROUNDS, LE AMP PLANNED FOR TODAY DCP TBD BY LUCITA ROBERTS LIKELY TO OCCUR FRIDAY
[2021-11-30 14:24] LABS: Glucose, Whole Blood 189 mg/dL (60-115)
--- NOTE | 2021-11-30 14:52 | P.CONAN_ITS ---
HPI - Anesthesia Eval Consult details Narrative: Right 5th toe ulcer PMFSH Active Problems Active Problems: All Active Problems (Updated 11/25/21 @ 10:54 by Nicole Zamorano MD) Hyponatremia (Acute) Infected sebaceous cyst (Acute) Acute on chronic osteomyelitis (Acute) Hyperglycemia (Acute) OBEY (acute kidney injury) (Acute) Right foot ulcer (Acute) Broken toe (Acute) HCV (hepatitis C virus) (Acute) Schizophrenia (Acute) Bipolar 1 disorder (Acute) PAD (peripheral artery disease) (Acute) Hypertension (Acute) Cellulitis of right lower extremity (Acute) Past Medical History Medical History Broken toe Diabetes HCV (hepatitis C virus) Hypertension Osteomyelitis PAD (peripheral artery disease) Schizoaffective disorder Family History Family History Father Diabetes mellitus Family history of problems with anesthesia: No Surgical History History of Problems with Anesthesia: No Social History Social History Household Members: None and Other Household Members Other:: Friend Housing: Apartment Do you presently have visiting nurse or other home services: No Alcohol intake: never Patient Tobacco Use Status: Former Tobacco user Quit Date: 08/07/21 Use of substances other than those prescribed or required for medical reasons: No Currently Displaying Signs/Symptoms of Drug Intoxication Withdrawal: No Are you DNR?: No Advance Directives: No service: No Current occupational status: unemployed Meds Allergies Allergy/AdvReac Type Severity Reaction Status Date / Time No Known Allergies Allergy Verified 11/06/21 15:44 Active Medications: Current Medications Acetaminophen (Acetaminophen 325 Mg Tablet) 650 mg PO Q6H PRN PRN Reason: Pain, Severe (Pain Scale 7-10) Last Admin: 11/27/21 16:16 Dose: 650 mg Amlodipine Besylate (Amlodipine Besylate 5 Mg Tablet) 5 mg PO DAILY [facility]; Protocol Last Admin: 11/30/21 08:43 Dose: 5 mg Aspirin (Aspirin Enteric Coated 81 Mg Tablet.) 81 mg PO DAILY [facility] Last Admin: 11/30/21 08:44 Dose: 81 mg Clonidine HCl (Clonidine Hcl 0.1 Mg Tablet) 0.1 mg PO BID [facility]; Protocol Last Admin: 11/30/21 08:44 Dose: 0.1 mg Clopidogrel Bisulfate (Clopidogrel Bisulfate 75 Mg Tablet) 75 mg PO DAILY [facility] Last Admin: 11/30/21 08:43 Dose: 75 mg Dextrose (Dextrose 50 % 25 Gm/50 Ml Syringe) 25 gm IVPUSH Q15M PRN; Protocol PRN Reason: per Hypoglycemia Standing Ord. Enoxaparin Sodium (Enoxaparin Sodium 40 Mg/0.4 Ml Syringe) 40 mg SUBCUT Q24H [facility] Last Admin: 11/29/21 22:03 Dose: 40 mg Glucose (Glucose Gel 15 Gm Gel..Gram.) 15 gm PO Q15M PRN; Protocol PRN Reason: per Hypoglycemia Standing Ord. Piperacillin Sod/Tazobactam (Sod 3.375 gm/ Sodium Chloride) 50 mls @ 100 mls/hr IV Q6H [facility] Last Infusion: 11/30/21 12:27 Dose: Infused Vancomycin HCl 1,000 mg/ (Sodium Chloride) 270 mls @ 270 mls/hr IV Q12H [facility] Last Infusion: 11/30/21 10:05 Dose: Infused Insulin Glargine (Insulin Glargine,Hum.Rec.Anlog 100 Unit/Ml 10 Ml Vial) 50 unit SUBCUT DAILY [facility] Last Admin: 11/30/21 08:42 Dose: Not Given Insulin Human Lispro (Insulin Lispro 100 Unit/Ml 3 Ml Vial) 0 unit SUBCUT QIDACHS [facility]; Protocol Last Admin: 11/30/21 11:47 Dose: Not Given Lisinopril (Lisinopril 20 Mg Tablet) 20 mg PO DAILY [facility]; Protocol Last Admin: 11/30/21 08:44 Dose: 20 mg Ondansetron HCl (Ondansetron Hcl 4 Mg/2 Ml Vial) 4 mg IVPUSH Q8H PRN PRN Reason: Nausea and Vomiting Oxcarbazepine (Oxcarbazepine 300 Mg Tablet) 300 mg PO BEDTIME [facility] Last Admin: 11/29/21 22:03 Dose: 300 mg Oxycodone HCl (Oxycodone Hcl Immed Release 5 Mg Tablet) 5 mg PO Q6H PRN PRN Reason: Breakthrough Pain Last Admin: 11/30/21 08:48 Dose: 5 mg Pharmacy Consult (Consult Rx Perform Med Rec) 1 each MISCELLANE ONCE PRN PRN Reason: Consult order Pharmacy Consult (Consult Rx Vancomycin Dosing) 1 each MISCELLANE DAILY PRN PRN Reason: Consult order Risperidone (Risperidone 2 Mg Tablet) 2 mg PO BID [facility] Last Admin: 11/30/21 08:44 Dose: 2 mg Sodium Chloride (0.9 % Sodium Chloride Flush 3 Ml Syringe) 3 ml IVFLUSH QSHIFT [facility] Last Admin: 11/30/21 07:59 Dose: Not Given Exam Exam Date and Time: November 30, 2021 1452 Height,Weight and Vital Signs: Height 5 ft 8 in Weight 108.862 kg Last Vital Signs Temp 97.6 F 11/30/21 14:17 Pulse 68 11/30/21 14:17 Resp 18 11/30/21 14:17 BP 142/73 H 11/30/21 14:17 Pulse Ox 97 11/30/21 14:17 O2 Del Method 11/30/21 14:17 Pertinent Lab Results Pertinent Lab Results: Laboratory Tests 11/24/21 11/24/21 11/24/21 16:38 16:38 16:38 WBC 8.9 RBC 4.67 Hgb 11.6 L Hct 34.8 L MCV 74.5 L MCH 24.8 L MCHC 33.3 RDW 13.3 Plt Count 314 D MPV 10.5 Immature Gran % (Auto) 0.5 H Neut % (Auto) 72.5 Lymph % (Auto) 16.8 L [place] % (Auto) 8.1 Eos % (Auto) 1.8 Baso % (Auto) 0.3 Lymph # (Auto) 1.5 [place] # (Auto) 0.7 Eos # (Auto) 0.2 Baso # (Auto) 0.0 Abs Immat Gran (auto) 0.04 H Absolute Neuts (auto) 6.4 Absolute Nucleated RBC 0.000 Nucleated RBC % (auto) 0.0 ESR PT 12.7 INR 1.1 APTT 28.2 VBG pH VBG pCO2 VBG pO2 VBG HCO3 VBG O2 Saturation VBG Base Excess Sodium 128 L Potassium 4.3 Chloride 94 L Carbon Dioxide 23 Anion Gap 15 BUN 22 H Creatinine 1.58 H Estim Creat Clear Calc 67.2 Estimated GFR 47 POC Glucose Random Glucose 627 H* Fasting Glucose Lactic Acid Calcium 8.7 Magnesium 1.7 Total Bilirubin < 0.2 Direct Bilirubin < 0.2 AST 22 ALT 38 Alkaline Phosphatase 96 C-Reactive Protein 7.46 H B-Natriuretic Peptide Total Protein 7.7 Albumin 3.3 L Urine Color Urine Appearance Urine pH Ur Specific [place] Urine Protein Urine Glucose (UA) Urine Ketones Urine Blood Urine Nitrite Ur Leukocyte Esterase Urine RBC Urine WBC Ur Squamous Epith Cells Urine Bacteria Hyaline Casts Vancomycin Trough Random Vancomycin Acetone, Qual COVID-19 ([facility]) COVID-19 Clin Com 11/24/21 11/24/21 11/24/21 16:38 16:38 16:38 WBC RBC Hgb Hct MCV MCH MCHC RDW Plt Count MPV Immature Gran % (Auto) Neut % (Auto) Lymph % (Auto) [place] % (Auto) Eos % (Auto) Baso % (Auto) Lymph # (Auto) [place] # (Auto) Eos # (Auto) Baso # (Auto) Abs Immat Gran (auto) Absolute Neuts (auto) Absolute Nucleated RBC Nucleated RBC % (auto) ESR PT INR APTT VBG pH VBG pCO2 VBG pO2 VBG HCO3 VBG O2 Saturation VBG Base Excess Sodium Potassium Chloride Carbon Dioxide Anion Gap BUN Creatinine Estim Creat Clear Calc Estimated GFR POC Glucose Random Glucose Fasting Glucose Lactic Acid 1.9 Calcium Magnesium Total Bilirubin Direct Bilirubin AST ALT Alkaline Phosphatase C-Reactive Protein B-Natriuretic Peptide 24 Total Protein Albumin Urine Color Urine Appearance Urine pH Ur Specific [place] Urine Protein Urine Glucose (UA) Urine Ketones Urine Blood Urine Nitrite Ur Leukocyte Esterase Urine RBC Urine WBC Ur Squamous Epith Cells Urine Bacteria Hyaline Casts Vancomycin Trough Random Vancomycin Acetone, Qual COVID-19 ([facility]) Negative COVID-19 Clin Com See Note 11/24/21 11/24/21 11/24/21 16:46 17:14 17:17 WBC RBC Hgb Hct MCV MCH MCHC RDW Plt Count MPV Immature Gran % (Auto) Neut % (Auto) Lymph % (Auto) [place] % (Auto) Eos % (Auto) Baso % (Auto) Lymph # (Auto) [place] # (Auto) Eos # (Auto) Baso # (Auto) Abs Immat Gran (auto) Absolute Neuts (auto) Absolute Nucleated RBC Nucleated RBC % (auto) ESR 81 H PT INR APTT VBG pH 7.38 VBG pCO2 42 VBG pO2 40 VBG HCO3 25 VBG O2 Saturation 58.0 VBG Base Excess 0.7 Sodium Potassium Chloride Carbon Dioxide Anion Gap BUN Creatinine Estim Creat Clear Calc Estimated GFR POC Glucose Random Glucose Fasting Glucose Lactic Acid Calcium Magnesium Total Bilirubin Direct Bilirubin AST ALT Alkaline Phosphatase C-Reactive Protein B-Natriuretic Peptide Total Protein Albumin Urine Color Urine Appearance Urine pH Ur Specific [place] Urine Protein Urine Glucose (UA) Urine Ketones Urine Blood Urine Nitrite Ur Leukocyte Esterase Urine RBC Urine WBC Ur Squamous Epith Cells Urine Bacteria Hyaline Casts Vancomycin Trough Random Vancomycin Acetone, Qual Negative COVID-19 ([facility]) COVID-19 [employer] 11/24/21 11/25/21 11/25/21 19:08 02:25 05:52 WBC RBC Hgb Hct MCV MCH MCHC RDW Plt Count MPV Immature Gran % (Auto) Neut % (Auto) Lymph % (Auto) [place] % (Auto) Eos % (Auto) Baso % (Auto) Lymph # (Auto) [place] # (Auto) Eos # (Auto) Baso # (Auto) Abs Immat Gran (auto) Absolute Neuts (auto) Absolute Nucleated RBC Nucleated RBC % (auto) ESR PT INR APTT VBG pH VBG pCO2 VBG pO2 VBG HCO3 VBG O2 Saturation VBG Base Excess Sodium 132 L Potassium 4.5 Chloride 101 Carbon Dioxide 23 Anion Gap 13 BUN 16 Creatinine 1.23 Estim Creat Clear Calc 86.4 Estimated GFR > 60 POC Glucose 349 H Random Glucose 383 H* Fasting Glucose Lactic Acid Calcium 8.4 Magnesium Total Bilirubin Direct Bilirubin AST ALT Alkaline Phosphatase C-Reactive Protein B-Natriuretic Peptide Total Protein Albumin Urine Color Yellow Urine Appearance Clear Urine pH 5.5 Ur Specific [place] >= 1.030 H Urine Protein 100 (2+) H Urine Glucose (UA) >=1000 H Urine Ketones Negative Urine Blood Negative Urine Nitrite Negative Ur Leukocyte Esterase Negative Urine RBC 0-2 Urine WBC 0-5 Ur Squamous Epith Cells 0-2 Urine Bacteria None Seen Hyaline Casts 0-2 Vancomycin Trough Random Vancomycin Acetone, Qual COVID-19 ([facility]) COVID-19 Clin Com 11/25/21 11/25/21 11/25/21 12:28 16:06 19:39 WBC RBC Hgb Hct MCV MCH MCHC RDW Plt Count MPV Immature Gran % (Auto) Neut % (Auto) Lymph % (Auto) [place] % (Auto) Eos % (Auto) Baso % (Auto) Lymph # (Auto) [place] # (Auto) Eos # (Auto) Baso # (Auto) Abs Immat Gran (auto) Absolute Neuts (auto) Absolute Nucleated RBC Nucleated RBC % (auto) ESR PT INR APTT VBG pH VBG pCO2 VBG pO2 VBG HCO3 VBG O2 Saturation VBG Base Excess Sodium Potassium Chloride Carbon Dioxide Anion Gap BUN Creatinine Estim Creat Clear Calc Estimated GFR POC Glucose 334 H 342 H 276 H Random Glucose Fasting Glucose Lactic Acid Calcium Magnesium Total Bilirubin Direct Bilirubin AST ALT Alkaline Phosphatase C-Reactive Protein B-Natriuretic Peptide Total Protein Albumin Urine Color Urine Appearance Urine pH Ur Specific [place] Urine Protein Urine Glucose (UA) Urine Ketones Urine Blood Urine Nitrite Ur Leukocyte Esterase Urine RBC Urine WBC Ur Squamous Epith Cells Urine Bacteria Hyaline Casts Vancomycin Trough Random Vancomycin Acetone, Qual COVID-19 ([facility]) COVID-19 [employer] 11/26/21 11/26/21 11/26/21 05:58 05:58 07:20 WBC 8.9 RBC 4.55 L Hgb 11.4 L Hct 33.9 L MCV 74.5 L MCH 25.1 L MCHC 33.6 RDW 13.1 Plt Count 320 MPV 10.4 Immature Gran % (Auto) Neut % (Auto) Lymph % (Auto) [place] % (Auto) Eos % (Auto) Baso % (Auto) Lymph # (Auto) [place] # (Auto) Eos # (Auto) Baso # (Auto) Abs Immat Gran (auto) Absolute Neuts (auto) Absolute Nucleated RBC 0.000 Nucleated RBC % (auto) 0.0 ESR PT INR APTT VBG pH VBG pCO2 VBG pO2 VBG HCO3 VBG O2 Saturation VBG Base Excess Sodium 133 L Potassium 4.7 Chloride 98 Carbon Dioxide 25 Anion Gap 15 BUN 12 Creatinine 1.19 Estim Creat Clear Calc 89.3 Estimated GFR > 60 POC Glucose 259 H Random Glucose 269 H Fasting Glucose Lactic Acid Calcium 8.7 Magnesium Total Bilirubin Direct Bilirubin AST ALT Alkaline Phosphatase C-Reactive Protein B-Natriuretic Peptide Total Protein Albumin Urine Color Urine Appearance Urine pH Ur Specific [place] Urine Protein Urine Glucose (UA) Urine Ketones Urine Blood Urine Nitrite Ur Leukocyte Esterase Urine RBC Urine WBC Ur Squamous Epith Cells Urine Bacteria Hyaline Casts Vancomycin Trough Random Vancomycin Acetone, Qual COVID-19 ([facility]) COVID-19 [facility] 11/26/21 11/26/21 11/26/21 11:42 15:50 19:11 WBC RBC Hgb Hct MCV MCH MCHC RDW Plt Count MPV Immature Gran % (Auto) Neut % (Auto) Lymph % (Auto) [place] % (Auto) Eos % (Auto) Baso % (Auto) Lymph # (Auto) [place] # (Auto) Eos # (Auto) Baso # (Auto) Abs Immat Gran (auto) Absolute Neuts (auto) Absolute Nucleated RBC Nucleated RBC % (auto) ESR PT INR APTT VBG pH VBG pCO2 VBG pO2 VBG HCO3 VBG O2 Saturation VBG Base Excess Sodium Potassium Chloride Carbon Dioxide Anion Gap BUN Creatinine Estim Creat Clear Calc Estimated GFR POC Glucose 291 H 410 H* Random Glucose Fasting Glucose Lactic Acid Calcium Magnesium Total Bilirubin Direct Bilirubin AST ALT Alkaline Phosphatase C-Reactive Protein B-Natriuretic Peptide Total Protein Albumin Urine Color Urine Appearance Urine pH Ur Specific [place] Urine Protein Urine Glucose (UA) Urine Ketones Urine Blood Urine Nitrite Ur Leukocyte Esterase Urine RBC Urine WBC Ur Squamous Epith Cells Urine Bacteria Hyaline Casts Vancomycin Trough 17.3 Random Vancomycin Acetone, Qual COVID-19 ([facility]) COVID-19 [employer] 11/26/21 11/26/21 11/27/21 19:31 22:31 05:19 WBC RBC Hgb Hct MCV MCH MCHC RDW Plt Count MPV Immature Gran % (Auto) Neut % (Auto) Lymph % (Auto) [place] % (Auto) Eos % (Auto) Baso % (Auto) Lymph # (Auto) [place] # (Auto) Eos # (Auto) Baso # (Auto) Abs Immat Gran (auto) Absolute Neuts (auto) Absolute Nucleated RBC Nucleated RBC % (auto) ESR PT INR APTT VBG pH VBG pCO2 VBG pO2 VBG HCO3 VBG O2 Saturation VBG Base Excess Sodium 134 L Potassium 5.0 Chloride 99 Carbon Dioxide 29 Anion Gap 11 L BUN 15 Creatinine 1.25 Estim Creat Clear Calc 85.0 Estimated GFR > 60 POC Glucose 430 H* 315 H Random Glucose 307 H Fasting Glucose Lactic Acid Calcium 8.5 Magnesium Total Bilirubin Direct Bilirubin AST ALT Alkaline Phosphatase C-Reactive Protein B-Natriuretic Peptide Total Protein Albumin Urine Color Urine Appearance Urine pH Ur Specific [place] Urine Protein Urine Glucose (UA) Urine Ketones Urine Blood Urine Nitrite Ur Leukocyte Esterase Urine RBC Urine WBC Ur Squamous Epith Cells Urine Bacteria Hyaline Casts Vancomycin Trough Random Vancomycin Acetone, Qual COVID-19 ([facility]) COVID-19 [facility] 11/27/21 11/27/21 11/27/21 05:19 07:07 11:12 WBC RBC Hgb Hct MCV MCH MCHC RDW Plt Count MPV Immature Gran % (Auto) Neut % (Auto) Lymph % (Auto) [place] % (Auto) Eos % (Auto) Baso % (Auto) Lymph # (Auto) [place] # (Auto) Eos # (Auto) Baso # (Auto) Abs Immat Gran (auto) Absolute Neuts (auto) Absolute Nucleated RBC Nucleated RBC % (auto) ESR PT INR APTT VBG pH VBG pCO2 VBG pO2 VBG HCO3 VBG O2 Saturation VBG Base Excess Sodium Potassium Chloride Carbon Dioxide Anion Gap BUN Creatinine Cancelled Estim Creat Clear Calc Cancelled Estimated GFR Cancelled POC Glucose 293 H 298 H Random Glucose Fasting Glucose Lactic Acid Calcium Magnesium Total Bilirubin Direct Bilirubin AST ALT Alkaline Phosphatase C-Reactive Protein B-Natriuretic Peptide Total Protein Albumin Urine Color Urine Appearance Urine pH Ur Specific [place] Urine Protein Urine Glucose (UA) Urine Ketones Urine Blood Urine Nitrite Ur Leukocyte Esterase Urine RBC Urine WBC Ur Squamous Epith Cells Urine Bacteria Hyaline Casts Vancomycin Trough Random Vancomycin Acetone, Qual COVID-19 ([facility]) COVID-19 [employer] 11/27/21 11/27/21 11/28/21 15:22 19:37 07:07 WBC RBC Hgb Hct MCV MCH MCHC RDW Plt Count MPV Immature Gran % (Auto) Neut % (Auto) Lymph % (Auto) [place] % (Auto) Eos % (Auto) Baso % (Auto) Lymph # (Auto) [place] # (Auto) Eos # (Auto) Baso # (Auto) Abs Immat Gran (auto) Absolute Neuts (auto) Absolute Nucleated RBC Nucleated RBC % (auto) ESR PT INR APTT VBG pH VBG pCO2 VBG pO2 VBG HCO3 VBG O2 Saturation VBG Base Excess Sodium Potassium Chloride Carbon Dioxide Anion Gap BUN Creatinine Estim Creat Clear Calc Estimated GFR POC Glucose 375 H* 355 H* Random Glucose Fasting Glucose Lactic Acid Calcium Magnesium Total Bilirubin Direct Bilirubin AST ALT Alkaline Phosphatase C-Reactive Protein B-Natriuretic Peptide Total Protein Albumin Urine Color Urine Appearance Urine pH Ur Specific [place] Urine Protein Urine Glucose (UA) Urine Ketones Urine Blood Urine Nitrite Ur Leukocyte Esterase Urine RBC Urine WBC Ur Squamous Epith Cells Urine Bacteria Hyaline Casts Vancomycin Trough 14.6 Random Vancomycin Acetone, Qual COVID-19 ([facility]) COVID-19 [employer] 11/28/21 11/28/21 11/28/21 07:07 07:12 11:06 WBC RBC Hgb Hct MCV MCH MCHC RDW Plt Count MPV Immature Gran % (Auto) Neut % (Auto) Lymph % (Auto) [place] % (Auto) Eos % (Auto) Baso % (Auto) Lymph # (Auto) [place] # (Auto) Eos # (Auto) Baso # (Auto) Abs Immat Gran (auto) Absolute Neuts (auto) Absolute Nucleated RBC Nucleated RBC % (auto) ESR PT INR APTT VBG pH VBG pCO2 VBG pO2 VBG HCO3 VBG O2 Saturation VBG Base Excess Sodium Potassium Chloride Carbon Dioxide Anion Gap BUN Creatinine 1.12 Estim Creat Clear Calc 94.9 Estimated GFR > 60 POC Glucose 299 H 252 H Random Glucose Fasting Glucose Lactic Acid Calcium Magnesium Total Bilirubin Direct Bilirubin AST ALT Alkaline Phosphatase C-Reactive Protein B-Natriuretic Peptide Total Protein Albumin Urine Color Urine Appearance Urine pH Ur Specific [place] Urine Protein Urine Glucose (UA) Urine Ketones Urine Blood Urine Nitrite Ur Leukocyte Esterase Urine RBC Urine WBC Ur Squamous Epith Cells Urine Bacteria Hyaline Casts Vancomycin Trough Random Vancomycin Acetone, Qual COVID-19 ([facility]) COVID-19 Clin Com 11/28/21 11/28/21 11/29/21 15:23 19:53 05:48 WBC 7.9 RBC 4.25 L Hgb 10.7 L Hct 32.2 L MCV 75.8 L MCH 25.2 L MCHC 33.2 RDW 13.1 Plt Count 289 MPV 10.6 Immature Gran % (Auto) Neut % (Auto) Lymph % (Auto) [place] % (Auto) Eos % (Auto) Baso % (Auto) Lymph # (Auto) [place] # (Auto) Eos # (Auto) Baso # (Auto) Abs Immat Gran (auto) Absolute Neuts (auto) Absolute Nucleated RBC 0.000 Nucleated RBC % (auto) 0.0 ESR PT INR APTT VBG pH VBG pCO2 VBG pO2 VBG HCO3 VBG O2 Saturation VBG Base Excess Sodium Potassium Chloride Carbon Dioxide Anion Gap BUN Creatinine Estim Creat Clear Calc Estimated GFR POC Glucose 282 H 386 H* Random Glucose Fasting Glucose Lactic Acid Calcium Magnesium Total Bilirubin Direct Bilirubin AST ALT Alkaline Phosphatase C-Reactive Protein B-Natriuretic Peptide Total Protein Albumin Urine Color Urine Appearance Urine pH Ur Specific [place] Urine Protein Urine Glucose (UA) Urine Ketones Urine Blood Urine Nitrite Ur Leukocyte Esterase Urine RBC Urine WBC Ur Squamous Epith Cells Urine Bacteria Hyaline Casts Vancomycin Trough Random Vancomycin Acetone, Qual COVID-19 ([facility]) COVID-19 Clin Com 11/29/21 11/29/21 11/29/21 05:48 07:42 11:14 WBC RBC Hgb Hct MCV MCH MCHC RDW Plt Count MPV Immature Gran % (Auto) Neut % (Auto) Lymph % (Auto) [place] % (Auto) Eos % (Auto) Baso % (Auto) Lymph # (Auto) [place] # (Auto) Eos # (Auto) Baso # (Auto) Abs Immat Gran (auto) Absolute Neuts (auto) Absolute Nucleated RBC Nucleated RBC % (auto) ESR PT INR APTT VBG pH VBG pCO2 VBG pO2 VBG HCO3 VBG O2 Saturation VBG Base Excess Sodium 132 L Potassium 4.7 Chloride 98 Carbon Dioxide 24 Anion Gap 15 BUN 19 H Creatinine 1.35 Estim Creat Clear Calc 78.7 Estimated GFR 56 POC Glucose 316 H 282 H Random Glucose Fasting Glucose 377 H* Lactic Acid Calcium 8.6 Magnesium Total Bilirubin Direct Bilirubin AST ALT Alkaline Phosphatase C-Reactive Protein B-Natriuretic Peptide Total Protein Albumin Urine Color Urine Appearance Urine pH Ur Specific [place] Urine Protein Urine Glucose (UA) Urine Ketones Urine Blood Urine Nitrite Ur Leukocyte Esterase Urine RBC Urine WBC Ur Squamous Epith Cells Urine Bacteria Hyaline Casts Vancomycin Trough Random Vancomycin Acetone, Qual COVID-19 ([facility]) COVID-19 [employer] 11/29/21 11/29/21 11/29/21 15:55 19:54 21:59 WBC RBC Hgb Hct MCV MCH MCHC RDW Plt Count MPV Immature Gran % (Auto) Neut % (Auto) Lymph % (Auto) [place] % (Auto) Eos % (Auto) Baso % (Auto) Lymph # (Auto) [place] # (Auto) Eos # (Auto) Baso # (Auto) Abs Immat Gran (auto) Absolute Neuts (auto) Absolute Nucleated RBC Nucleated RBC % (auto) ESR PT INR APTT VBG pH VBG pCO2 VBG pO2 VBG HCO3 VBG O2 Saturation VBG Base Excess Sodium Potassium Chloride Carbon Dioxide Anion Gap BUN Creatinine Estim Creat Clear Calc Estimated GFR POC Glucose 321 H 445 H* Random Glucose Fasting Glucose Lactic Acid Calcium Magnesium Total Bilirubin Direct Bilirubin AST ALT Alkaline Phosphatase C-Reactive Protein B-Natriuretic Peptide Total Protein Albumin Urine Color Urine Appearance Urine pH Ur Specific [place] Urine Protein Urine Glucose (UA) Urine Ketones Urine Blood Urine Nitrite Ur Leukocyte Esterase Urine RBC Urine WBC Ur Squamous Epith Cells Urine Bacteria Hyaline Casts Vancomycin Trough 20.7 H Random Vancomycin Acetone, Qual COVID-19 ([facility]) COVID-19 [employer] 11/30/21 11/30/21 11/30/21 06:11 06:11 06:11 WBC 7.3 RBC 4.22 L Hgb 10.6 L Hct 31.9 L MCV 75.6 L MCH 25.1 L MCHC 33.2 RDW 13.3 Plt Count 276 MPV 10.5 Immature Gran % (Auto) Neut % (Auto) Lymph % (Auto) [place] % (Auto) Eos % (Auto) Baso % (Auto) Lymph # (Auto) [place] # (Auto) Eos # (Auto) Baso # (Auto) Abs Immat Gran (auto) Absolute Neuts (auto) Absolute Nucleated RBC 0.000 Nucleated RBC % (auto) 0.0 ESR PT INR APTT VBG pH VBG pCO2 VBG pO2 VBG HCO3 VBG O2 Saturation VBG Base Excess Sodium 134 L Potassium 4.5 Chloride 101 Carbon Dioxide 24 Anion Gap 14 BUN 17 H Creatinine 1.26 Estim Creat Clear Calc 84.3 Estimated GFR > 60 POC Glucose Random Glucose Fasting Glucose 302 H Lactic Acid Calcium 8.6 Magnesium Total Bilirubin Direct Bilirubin AST ALT Alkaline Phosphatase C-Reactive Protein B-Natriuretic Peptide Total Protein Albumin Urine Color Urine Appearance Urine pH Ur Specific [place] Urine Protein Urine Glucose (UA) Urine Ketones Urine Blood Urine Nitrite Ur Leukocyte Esterase Urine RBC Urine WBC Ur Squamous Epith Cells Urine Bacteria Hyaline Casts Vancomycin Trough Random Vancomycin 12.0 L Acetone, Qual COVID-19 ([facility]) COVID-19 [employer] 11/30/21 11/30/21 11/30/21 07:36 11:00 14:20 WBC RBC Hgb Hct MCV MCH MCHC RDW Plt Count MPV Immature Gran % (Auto) Neut % (Auto) Lymph % (Auto) [place] % (Auto) Eos % (Auto) Baso % (Auto) Lymph # (Auto) [place] # (Auto) Eos # (Auto) Baso # (Auto) Abs Immat Gran (auto) Absolute Neuts (auto) Absolute Nucleated RBC Nucleated RBC % (auto) ESR PT INR APTT VBG pH VBG pCO2 VBG pO2 VBG HCO3 VBG O2 Saturation VBG Base Excess Sodium Potassium Chloride Carbon Dioxide Anion Gap BUN Creatinine Estim Creat Clear Calc Estimated GFR POC Glucose 260 H 220 H 189 H Random Glucose Fasting Glucose Lactic Acid Calcium Magnesium Total Bilirubin Direct Bilirubin AST ALT Alkaline Phosphatase C-Reactive Protein B-Natriuretic Peptide Total Protein Albumin Urine Color Urine Appearance Urine pH Ur Specific [place] Urine Protein Urine Glucose (UA) Urine Ketones Urine Blood Urine Nitrite Ur Leukocyte Esterase Urine RBC Urine WBC Ur Squamous Epith Cells Urine Bacteria Hyaline Casts Vancomycin Trough Random Vancomycin Acetone, Qual COVID-19 ([facility]) COVID-19 Clin Com Airway Mallampati Class: III TM Dist: >3cm Neck ROM: Full Loose/Missing/Broken Teeth: No Heart: [id number] Lungs: cta b/l Assessment and Plan Assessment Anesthesia Assessment: Anesthesia Plan Discussed and Chart Reviewed Final Anesthetic Review Family History of Problems with Anesthesia: No History of Problems with Anesthesia: No NPO: Yes ASA Class: III Final Preanesthetic Review: No Changes in Pt Med Stat, Meds/Allgs Chart Reviewed, Consent Obtained/Reviewed and Anes Risks/Benef Reviewed Patient Risk: Intermediate Procedure Risk: Intermediate Assessment/Block/Sedation in SS: Assess/Block/Sedation-SS Anesthetic Plan Anesthetic Plan: MAC: and Agree w/ Assess. and Plan Disposition: Standard PACU
--- NOTE | 2021-11-30 15:27 | P.OP_ITS ---
Operative Note Operative Note Date of Service: 11/30/21 Narrative: Operative note by [facility] Preoperative diagnosis: Right 5th toe ulcer with osteomyelitis Postoperative diagnosis: Same Procedure: Right 5th toe ray amputation Surgeon:Angel Holt M.D. Supervisor [employer]: Jorge Anesthesia: Local with sedation Specimens: 1 Drains: None Estimated blood loss: Minimal Indications: 51-year-old uncontrolled diabetic gentleman presents with nonhealing right lateral 5th toe ulcer. It has been chronic he has had a trial of antibiotics which have failed. He now presents for amputation. Consent was obtained with dental ceramist The patient has signed the informed consent after reviewing risks, complications, benefits, and alternatives previously discussed with the patient. The patient was given the opportunity to ask any additional questions or voice any concerns. All questions were answered to the patient's satisfaction. Procedure in detail: Patient was brought to the operating room prior to which a time-out was called for patient identification site verification right leg was prepped and draped in standard surgical fashion. Curvilinear fishmouth incision was made made over the 5th toe going down over on to the metatarsal head passing the ulcer area. This was dissected down local area was infiltrated with 1% lidocaine local once we dissected down with electrocautery hemostasis was achieved we made a cut below the metatarsal head with a power saw. Once this was done we removed the toe. The toe into bone immediately fractured and fragmented. It was then residual was run short out. The wound bed was thoroughly irrigated. Deep layer was reapproximated with 2-0 Polysorb superficial layer with 3-0 poly Sorb and finally skin with a mattress 2-0 nylon. Due to the amount tissue loss there was incomplete closure of the incision line. Xeroform and a sterile dressing were applied This note is constructed using voice recognition software. While every effort has been made to ensure accuracy, monitor and storage bin tender errors may have been included. Thank you for allowing me to participate in the care of your patient. Yours sincerely, Angel Holt MD, FACS, R.P.V.I.
[2021-11-30] MEDS: oxyCODONE HCl Immed Release 5 MG TABLET 10 MG PO (15:37)
[2021-11-30] MEDS: fentaNYL citrate/PF 100 MCG/2 ML VIAL 50 MCG IVPUSH ×4 (15:38→16:21)
[2021-11-30 17:28] LABS: Glucose, Whole Blood 180 mg/dL (60-115)
[2021-11-30] MEDS: Acetaminophen 325 MG TABLET 650 MG PO (17:35)
[2021-11-30] MEDS: 0.9 % Sodium Chloride Flush 3 ML SYRINGE IVFLUSH ×2 (17:35→19:45)
[2021-11-30] MEDS: OXcarbazepine 300 MG TABLET PO (19:37)
[2021-11-30 20:09] LABS: Glucose, Whole Blood 414 mg/dL (60-115)
[2021-11-30] MEDS: Enoxaparin Sodium 40 MG/0.4 ML SYRINGE SUBCUT (22:24)
[2021-12-01] VITALS: BP 187/80; PULSE 91; RESP 18; TEMP 37.1; O2SAT 98
[2021-12-01] MEDS: oxyCODONE HCl Immed Release 5 MG TABLET PO ×4 (00:19→18:48)
[2021-12-01] MEDS: Piperacillin Sodium/Tazobactam 3.375 GM in 0.9 % Sodium Chloride 50 ML IV ×5 (00:20→23:41)
[2021-12-01] MEDS: Acetaminophen 325 MG TABLET 650 MG PO ×4 (00:20→18:48)
--- NOTE | 2021-12-01 02:44 | PC.NURSE ---
11/30/21, 20:15 pt poc was 414 dr Langston notified, 10 units given per sliding scale, no additional insulin per doctor Kian. pt complained of 10/10 pain, right foot not due for pain medicine dr. Langston order 5mg po oxycodone times one dose at 19:53
[2021-12-01 04:00] VITALS: BP 132/64; PULSE 88; RESP 18; TEMP 37.1; O2SAT 97
[2021-12-01 06:11] LABS: Hematocrit 30.6 % (42.0-52.0); Hemoglobin 10.2 g/dl (14.0-18.0); Mean Corpuscular HGB Conc 33.3 g/dl (31.0-36.0); Mean Corpuscular Hemoglobin 25.2 pg (27.0-33.0); Mean Corpuscular Volume 75.6 fL (80.0-98.0); Mean Platelet Volume 10.4 fL (9.4-12.4); Platelet Count 267 X10*3/uL (160-400); Red Blood Count 4.05 X10*6/uL (4.60-5.80); Red Cell Distribution Width 13.1 % (11.0-16.0); White Blood Count 8.7 X10*3/uL (4.8-10.8)
[2021-12-01 06:32] LABS: Anion Gap 14 (12-20); Blood Urea Nitrogen 17 mg/dL (9-16); Calcium 8.8 mg/dL (8.4-10.2); Carbon Dioxide 25 mmol/L (22-29); Chloride 98 mmol/L (96-108); Creatinine Clr Calc Pharmacy 70.9; Estimated Glomerular Filt Rate 50; Glucose Fasting 385 mg/dL (60-99); Potassium 4.7 mmol/L (3.3-5.1); Sodium 132 mmol/L (135-145)
[2021-12-01 07:20] VITALS: BP 155/83; PULSE 80; RESP 18; TEMP 36.9; O2SAT 94
[2021-12-01 07:34] LABS: Glucose, Whole Blood 316 mg/dL (60-115)
[2021-12-01] MEDS: risperiDONE 2 MG TABLET PO ×2 (08:31→21:23)
[2021-12-01] MEDS: cloNIDine HCL 0.1 MG TABLET PO ×2 (08:31→21:23)
[2021-12-01] MEDS: Aspirin Enteric Coated 81 MG TABLET.DR PO (08:31)
[2021-12-01] MEDS: lisinopriL 20 MG TABLET PO (08:31)
[2021-12-01] MEDS: amLODIPine Besylate 5 MG TABLET PO (08:31)
[2021-12-01] MEDS: Clopidogrel Bisulfate 75 MG TABLET PO (08:31)
[2021-12-01] MEDS: Insulin Lispro 100 UNIT/ML 3 ML VIAL SUBCUT ×7 (08:32→21:23)
[2021-12-01] MEDS: Insulin Glargine,Hum.rec.anlog 100 UNIT/ML 10 ML VIAL 50 UNIT SUBCUT (08:32)
[2021-12-01] MEDS: 0.9 % Sodium Chloride Flush 3 ML SYRINGE IVFLUSH ×3 (08:33→19:37)
[2021-12-01] MEDS: vancomycin HCL 1,000 MG in 0.9 % Sodium Chloride 250 ML 270 MG IV ×2 (08:33→19:37)
--- NOTE | 2021-12-01 08:42 | P.PNIM_ITS ---
Subjective Subjective Date of Service: 12/01/21 Interval History: cc: nonhealing DFU interval history: no new complaints Cardiovascular Cardiovascular: Reports no additional cardiovascular complaints Respiratory Respiratory: Reports no additional respiratory complaints Physical Exam Vital Signs: Vital Signs: Last Vital Signs Temp 98.5 F 12/01/21 07:20 Pulse 80 12/01/21 07:20 Resp 18 12/01/21 07:20 BP 155/83 H 12/01/21 07:20 Pulse Ox 94 12/01/21 07:20 O2 Del Method 12/01/21 07:20 O2 Flow Rate 4 11/30/21 15:32 BMI result Body Mass Index 36.5 General: AO X 3, no acute distress Resp: CTA bilateral, no accessory muscles used CVS: S1,S2,RRR GI: soft, non tender, non distended Neuro: motor grossly intact, alert Psych: appropriate affect, appropriate insight Objective Data Active Medications Acetaminophen (Acetaminophen 325 Mg Tablet) 650 mg PO Q6H PRN PRN Reason: Pain, Severe (Pain Scale 7-10) Last Admin: 12/01/21 06:38 Dose: 650 mg Documented By: ORALIA Acetaminophen (Acetaminophen 325 Mg Tablet) 650 mg PO ONCE PRN PRN Reason: Pain, Mild (Pain Scale 1-3) Amlodipine Besylate (Amlodipine Besylate 5 Mg Tablet) 5 mg PO DAILY [facility]; Protocol Last Admin: 12/01/21 08:31 Dose: 5 mg Documented By: MATEO Aspirin (Aspirin Enteric Coated 81 Mg Tablet.) 81 mg PO DAILY [facility] Last Admin: 12/01/21 08:31 Dose: 81 mg Documented By: MATEO Clonidine HCl (Clonidine Hcl 0.1 Mg Tablet) 0.1 mg PO BID [facility]; Protocol Last Admin: 12/01/21 08:31 Dose: 0.1 mg Documented By: MATEO Clopidogrel Bisulfate (Clopidogrel Bisulfate 75 Mg Tablet) 75 mg PO DAILY [facility] Last Admin: 12/01/21 08:31 Dose: 75 mg Documented By: MATEO Dextrose (Dextrose 50 % 25 Gm/50 Ml Syringe) 25 gm IVPUSH Q15M PRN; Protocol PRN Reason: per Hypoglycemia Standing Ord. Enoxaparin Sodium (Enoxaparin Sodium 40 Mg/0.4 Ml Syringe) 40 mg SUBCUT Q24H [facility] Last Admin: 11/30/21 22:24 Dose: 40 mg Documented By: ORALIA Glucose (Glucose Gel 15 Gm Gel..Gram.) 15 gm PO Q15M PRN; Protocol PRN Reason: per Hypoglycemia Standing Ord. Piperacillin Sod/Tazobactam (Sod 3.375 gm/ Sodium Chloride) 50 mls @ 100 mls/hr IV Q6H [facility] Last Infusion: 12/01/21 06:15 Dose: 0 mls/hr Documented By: ORALIA Vancomycin HCl 1,000 mg/ (Sodium Chloride) 270 mls @ 270 mls/hr IV Q12H [facility] Last Admin: 12/01/21 08:33 Dose: 270 mls/hr Documented By: MATEO Insulin Glargine (Insulin Glargine,Hum.Rec.Anlog 100 Unit/Ml 10 Ml Vial) 50 unit SUBCUT DAILY [facility] Last Admin: 12/01/21 08:32 Dose: 50 unit Documented By: MATEO Insulin Human Lispro (Insulin Lispro 100 Unit/Ml 3 Ml Vial) 0 unit SUBCUT QIDACHS [facility]; Protocol Last Admin: 12/01/21 08:32 Dose: 8 unit Documented By: MATEO Lisinopril (Lisinopril 20 Mg Tablet) 20 mg PO DAILY [facility]; Protocol Last Admin: 12/01/21 08:31 Dose: 20 mg Documented By: MATEO Ondansetron HCl (Ondansetron Hcl 4 Mg/2 Ml Vial) 4 mg IVPUSH Q8H PRN PRN Reason: Nausea and Vomiting Ondansetron HCl (Ondansetron Hcl 4 Mg/2 Ml Vial) 4 mg IVPUSH ONCE PRN PRN Reason: Nausea and Vomiting Oxcarbazepine (Oxcarbazepine 300 Mg Tablet) 300 mg PO BEDTIME [facility] Last Admin: 11/30/21 19:37 Dose: 300 mg Documented By: ORALIA Oxycodone HCl (Oxycodone Hcl Immed Release 5 Mg Tablet) 5 mg PO Q6H PRN PRN Reason: Breakthrough Pain Last Admin: 12/01/21 06:38 Dose: 5 mg Documented By: ORALIA Pharmacy Consult (Consult Rx Perform Med Rec) 1 each MISCELLANE ONCE PRN PRN Reason: Consult order Pharmacy Consult (Consult Rx Vancomycin Dosing) 1 each MISCELLANE DAILY PRN PRN Reason: Consult order Risperidone (Risperidone 2 Mg Tablet) 2 mg PO BID [facility] Last Admin: 12/01/21 08:31 Dose: 2 mg Documented By: MATEO Sodium Chloride (0.9 % Sodium Chloride Flush 3 Ml Syringe) 3 ml IVFLUSH QSHIFT [facility] Last Admin: 12/01/21 08:33 Dose: 3 ml Documented By: MATEO Labs CBC & Chem 7: 12/01/21 05:49 12/01/21 05:49 Labs: Laboratory Results - last 24 hr 11/30/21 11/30/21 11/30/21 11:00 14:20 17:18 MCV MCH MCHC RDW Plt Count MPV Absolute Nucleated RBC Nucleated RBC % (auto) Anion Gap Estim Creat Clear Calc Estimated GFR POC Glucose 220 H 189 H 180 H Fasting Glucose Calcium 11/30/21 12/01/21 12/01/21 20:04 05:49 05:49 MCV 75.6 L MCH 25.2 L MCHC 33.3 RDW 13.1 Plt Count 267 MPV 10.4 Absolute Nucleated RBC 0.000 Nucleated RBC % (auto) 0.0 Anion Gap 14 Estim Creat Clear Calc 70.9 Estimated GFR 50 POC Glucose 414 H* Fasting Glucose 385 H* Calcium 8.8 12/01/21 07:18 MCV MCH MCHC RDW Plt Count MPV Absolute Nucleated RBC Nucleated RBC % (auto) Anion Gap Estim Creat Clear Calc Estimated GFR POC Glucose 316 H Fasting Glucose Calcium Assessment and Plan (1) Hyponatremia: Status: Acute (2) Acute on chronic osteomyelitis: Status: Acute (3) Hyperglycemia: Status: Acute Plan 51-year-old male with history of insulin-dependent type 2 diabetes with peripheral artery disease s/p right tibial angioplasty 09/10/21, hypertension, hepatitis-C, bipolar disorder, schizophrenia, and chronic osteomyelitis with nonhealing diabetic foot ulcer of the right 5th metatarsal being admitted for acute on chronic osteolyelitis with nonhealing diabetic foot ulcer of the right 5th metatarsal head. Acute on chronic diabetes related osteomyelitis 2/2 Nonhealing ulcer overlying right metataral head s/p open fracture 5th toe 3 months ago with nonhealing ulcer Xray right toes showed acute on chronic osteomyelitis of right 5th metatarsal head and proximal phalnyx Failed outpatient IV antibiotics Blood cultures negative Continue IV vanco and zosyn for now, and doxy 1-2 weeks on discharge angiogram with angioplasty 11/29/21 POD 1 amputation 5th toe for failed antibiotic treatment Wound culture MRSA VINCE Improved back to baseline Monitor BMP Scalp infected sebaceous cyst Drained by surgical team Continue antibiotics hyperglycemia 2/2 Uncontrolled insulin dependent type 2 diabetes Still elevated in 250s continue Lantus to 50 units daily add preprandial 5units, conitnue correction dose Diabetic diet PAD s/p right popliteal angioplasty Continue dual antiplatelet therapy Vascular surgery following HTN Continue amlodipine and clonidine lisinopril on hold for vince Bipolar disorder/schizophrenia risperdal hyponatremia pseudohyponatremia from hyperglycemia DVT prophylaxis lovenox Full code reason for continued hospitalization:close monitoring after amputation Quality Stroke Does the patient have a stroke diagnosis?: No VTE Prior VTE?: No VTE Risk Level:: Medical - moderate - high VTE Device Contraindication: Treatment Not Indicated VTE Drug Contraindication: N/A - Med Ordered
[2021-12-01 11:19] VITALS: BP 160/83; PULSE 80; RESP 18; TEMP 36.4; O2SAT 98
[2021-12-01 11:36] LABS: Glucose, Whole Blood 326 mg/dL (60-115)
--- NOTE | 2021-12-01 12:43 | HO.POSTANES ---
Post Anesthesia Evaluation Post Anesthesia Evaluation Vital Signs: Vital Signs Temp Pulse Resp BP Pulse Ox O2 Del Method 12/01/21 11:19 97.6 F 80 18 160/83 H 98 Room Air 12/01/21 07:20 98.5 F 80 18 155/83 H 94 Room Air 12/01/21 04:00 98.8 F 88 18 132/64 97 Room Air Anesthesia: Monitored Mental Status: Awake Pain Control: Satisfactory Hydration: Adequate Anesthesia-Related Issues: No Anes. Related Issues
[2021-12-01 15:48] VITALS: BP 143/70; PULSE 67; RESP 18; TEMP 36.6; O2SAT 98
[2021-12-01 16:25] LABS: Glucose, Whole Blood 338 mg/dL (60-115)
[2021-12-01 18:25] VITALS: BP 130/60; PULSE 69; RESP 18; TEMP 36.2; O2SAT 98
--- NOTE | 2021-12-01 19:25 | HE.PHANOTE ---
Vancomycin Dosing Addendum Patient vancomycin level stable at 12. Continue current regimen vancomycin 1000 mg Q12H. Patient has a slight increase in SCr. Pharmacy will continue to monitor. Next trough 12/03 @ 0600. Argenis MatiasD
[2021-12-01 21:16] LABS: Glucose, Whole Blood 310 mg/dL (60-115)
[2021-12-01] MEDS: OXcarbazepine 300 MG TABLET PO (21:23)
[2021-12-01] MEDS: Enoxaparin Sodium 40 MG/0.4 ML SYRINGE SUBCUT (21:23)
[2021-12-02] VITALS (7 sets, daily range): BP systolic 124–165; BP diastolic 57–96; PULSE 74–88; RESP 16–18; TEMP 36.3–37.2; O2SAT 94–98
[2021-12-02] MEDS: oxyCODONE HCl Immed Release 5 MG TABLET PO ×4 (00:17→22:33)
[2021-12-02] MEDS: Acetaminophen 325 MG TABLET 650 MG PO ×4 (00:18→22:33)
[2021-12-02] MEDS: Piperacillin Sodium/Tazobactam 3.375 GM in 0.9 % Sodium Chloride 50 ML IV ×4 (05:42→23:33)
[2021-12-02 06:22] LABS: Hematocrit 32.7 % (42.0-52.0); Hemoglobin 10.9 g/dl (14.0-18.0); Mean Corpuscular HGB Conc 33.3 g/dl (31.0-36.0); Mean Corpuscular Hemoglobin 25.1 pg (27.0-33.0); Mean Corpuscular Volume 75.3 fL (80.0-98.0); Mean Platelet Volume 10.5 fL (9.4-12.4); Platelet Count 294 X10*3/uL (160-400); Red Blood Count 4.34 X10*6/uL (4.60-5.80); Red Cell Distribution Width 13.2 % (11.0-16.0); White Blood Count 9.2 X10*3/uL (4.8-10.8)
[2021-12-02 06:41] LABS: Anion Gap 15 (12-20); Blood Urea Nitrogen 17 mg/dL (9-16); Calcium 8.9 mg/dL (8.4-10.2); Carbon Dioxide 26 mmol/L (22-29); Chloride 99 mmol/L (96-108); Creatinine Clr Calc Pharmacy 83.9; Estimated Glomerular Filt Rate > 60; Glucose Fasting 280 mg/dL (60-99); Potassium 4.6 mmol/L (3.3-5.1); Sodium 135 mmol/L (135-145)
[2021-12-02 08:00] LABS: Glucose, Whole Blood 243 mg/dL (60-115)
[2021-12-02] MEDS: lisinopriL 20 MG TABLET PO (08:26)
[2021-12-02] MEDS: risperiDONE 2 MG TABLET PO ×2 (08:26→19:30)
[2021-12-02] MEDS: cloNIDine HCL 0.1 MG TABLET PO ×2 (08:26→19:30)
[2021-12-02] MEDS: Clopidogrel Bisulfate 75 MG TABLET PO (08:26)
[2021-12-02] MEDS: Aspirin Enteric Coated 81 MG TABLET.DR PO (08:26)
[2021-12-02] MEDS: Insulin Glargine,Hum.rec.anlog 100 UNIT/ML 10 ML VIAL 50 UNIT SUBCUT (08:26)
[2021-12-02] MEDS: amLODIPine Besylate 5 MG TABLET PO (08:26)
[2021-12-02] MEDS: 0.9 % Sodium Chloride Flush 3 ML SYRINGE IVFLUSH ×3 (08:27→19:31)
[2021-12-02] MEDS: Insulin Lispro 100 UNIT/ML 3 ML VIAL SUBCUT ×8 (08:27→21:10)
[2021-12-02] MEDS: vancomycin HCL 1,000 MG in 0.9 % Sodium Chloride 250 ML 270 MG IV (08:27)
--- NOTE | 2021-12-02 09:52 | P.PNIM_ITS ---
Subjective Subjective Date of Service: 12/02/21 Interval History: cc: nonhealing DFU interval history: no new complaints Cardiovascular Cardiovascular: Reports no additional cardiovascular complaints Respiratory Respiratory: Reports no additional respiratory complaints Physical Exam Vital Signs: Vital Signs: Last Vital Signs Temp 98.3 F 12/02/21 07:52 Pulse 83 12/02/21 07:52 Resp 18 12/02/21 07:52 BP 165/96 H 12/02/21 07:52 Pulse Ox 98 12/02/21 07:52 O2 Del Method 12/02/21 07:52 O2 Flow Rate 4 11/30/21 15:32 BMI result Body Mass Index 36.5 General: AO X 3, no acute distress Resp: CTA bilateral, no accessory muscles used CVS: S1,S2,RRR GI: soft, non tender, non distended Neuro: motor grossly intact, alert Psych: appropriate affect, appropriate insight Objective Data Active Medications Acetaminophen (Acetaminophen 325 Mg Tablet) 650 mg PO Q6H PRN PRN Reason: Pain, Severe (Pain Scale 7-10) Last Admin: 12/02/21 08:33 Dose: 650 mg Documented By: MATEO Acetaminophen (Acetaminophen 325 Mg Tablet) 650 mg PO ONCE PRN PRN Reason: Pain, Mild (Pain Scale 1-3) Amlodipine Besylate (Amlodipine Besylate 5 Mg Tablet) 5 mg PO DAILY [facility] OF [facility]; Protocol Last Admin: 12/02/21 08:26 Dose: 5 mg Documented By: MATEO Aspirin (Aspirin Enteric Coated 81 Mg Tablet.) 81 mg PO DAILY [facility] OF [facility] Last Admin: 12/02/21 08:26 Dose: 81 mg Documented By: MATEO Clonidine HCl (Clonidine Hcl 0.1 Mg Tablet) 0.1 mg PO BID [facility]; Protocol Last Admin: 12/02/21 08:26 Dose: 0.1 mg Documented By: MATEO Clopidogrel Bisulfate (Clopidogrel Bisulfate 75 Mg Tablet) 75 mg PO DAILY [facility] Last Admin: 12/02/21 08:26 Dose: 75 mg Documented By: MATEO Dextrose (Dextrose 50 % 25 Gm/50 Ml Syringe) 25 gm IVPUSH Q15M PRN; Protocol PRN Reason: per Hypoglycemia Standing Ord. Enoxaparin Sodium (Enoxaparin Sodium 40 Mg/0.4 Ml Syringe) 40 mg SUBCUT Q24H [facility] Last Admin: 12/01/21 21:23 Dose: 40 mg Documented By: ORALIA Glucose (Glucose Gel 15 Gm Gel..Gram.) 15 gm PO Q15M PRN; Protocol PRN Reason: per Hypoglycemia Standing Ord. Piperacillin Sod/Tazobactam (Sod 3.375 gm/ Sodium Chloride) 50 mls @ 100 mls/hr IV Q6H [facility] Last Infusion: 12/02/21 06:19 Dose: 0 mls/hr Documented By: VALERIA Vancomycin HCl 1,000 mg/ (Sodium Chloride) 270 mls @ 270 mls/hr IV Q12H [facility] Last Admin: 12/02/21 08:27 Dose: 270 mls/hr Documented By: MATEO Insulin Glargine (Insulin Glargine,Hum.Rec.Anlog 100 Unit/Ml 10 Ml Vial) 50 unit SUBCUT DAILY [facility] Last Admin: 12/02/21 08:26 Dose: 50 unit Documented By: MATEO Insulin Human Lispro (Insulin Lispro 100 Unit/Ml 3 Ml Vial) 0 unit SUBCUT QIDACHS [facility]; Protocol Last Admin: 12/02/21 08:27 Dose: 4 unit Documented By: MATEO Insulin Human Lispro (Insulin Lispro 100 Unit/Ml 3 Ml Vial) 5 unit SUBCUT QIDACHS [facility] Last Admin: 12/02/21 08:27 Dose: 5 unit Documented By: MATEO Lisinopril (Lisinopril 20 Mg Tablet) 20 mg PO DAILY [facility]; Protocol Last Admin: 12/02/21 08:26 Dose: 20 mg Documented By: MATEO Ondansetron HCl (Ondansetron Hcl 4 Mg/2 Ml Vial) 4 mg IVPUSH Q8H PRN PRN Reason: Nausea and Vomiting Ondansetron HCl (Ondansetron Hcl 4 Mg/2 Ml Vial) 4 mg IVPUSH ONCE PRN PRN Reason: Nausea and Vomiting Oxcarbazepine (Oxcarbazepine 300 Mg Tablet) 300 mg PO BEDTIME [facility] Last Admin: 12/01/21 21:23 Dose: 300 mg Documented By: ORALIA Oxycodone HCl (Oxycodone Hcl Immed Release 5 Mg Tablet) 5 mg PO Q6H PRN PRN Reason: Breakthrough Pain Last Admin: 12/02/21 08:34 Dose: 5 mg Documented By: MATEO Pharmacy Consult (Consult Rx Perform Med Rec) 1 each MISCELLANE ONCE PRN PRN Reason: Consult order Pharmacy Consult (Consult Rx Vancomycin Dosing) 1 each MISCELLANE DAILY PRN PRN Reason: Consult order Risperidone (Risperidone 2 Mg Tablet) 2 mg PO BID [facility] Last Admin: 12/02/21 08:26 Dose: 2 mg Documented By: MATEO Sodium Chloride (0.9 % Sodium Chloride Flush 3 Ml Syringe) 3 ml IVFLUSH QSHIFT ON LICENSE OF [facility] Last Admin: 12/02/21 08:27 Dose: 3 ml Documented By: MATEO Labs CBC & Chem 7: 12/02/21 05:55 12/02/21 05:55 Labs: Laboratory Results - last 24 hr 12/01/21 12/01/21 12/01/21 11:19 16:20 18:15 MCV MCH MCHC RDW Plt Count MPV Absolute Nucleated RBC Nucleated RBC % (auto) Anion Gap Estim Creat Clear Calc Estimated GFR POC Glucose 326 H 338 H Fasting Glucose Calcium Random Vancomycin 12.0 L 12/01/21 12/02/21 12/02/21 20:34 05:55 05:55 MCV 75.3 L MCH 25.1 L MCHC 33.3 RDW 13.2 Plt Count 294 MPV 10.5 Absolute Nucleated RBC 0.000 Nucleated RBC % (auto) 0.0 Anion Gap 15 Estim Creat Clear Calc 83.9 Estimated GFR > 60 POC Glucose 310 H Fasting Glucose 280 H Calcium 8.9 Random Vancomycin 12/02/21 07:51 MCV MCH MCHC RDW Plt Count MPV Absolute Nucleated RBC Nucleated RBC % (auto) Anion Gap Estim Creat Clear Calc Estimated GFR POC Glucose 243 H Fasting Glucose Calcium Random Vancomycin Assessment and Plan (1) Hyponatremia: Status: Acute (2) Acute on chronic osteomyelitis: Status: Acute (3) Hyperglycemia: Status: Acute Plan 51-year-old male with history of insulin-dependent type 2 diabetes with peripheral artery disease s/p right tibial angioplasty 09/10/21, hypertension, hepatitis-C, bipolar disorder, schizophrenia, and chronic osteomyelitis with nonhealing diabetic foot ulcer of the right 5th metatarsal being admitted for acute on chronic osteolyelitis with nonhealing diabetic foot ulcer of the right 5th metatarsal head. Acute on chronic diabetes related osteomyelitis 2/2 Nonhealing ulcer overlying right metataral head s/p open fracture 5th toe 3 months ago with nonhealing ulcer Xray right toes showed acute on chronic osteomyelitis of right 5th metatarsal head and proximal phalnyx Failed outpatient IV antibiotics Blood cultures negative Continue IV vanco and zosyn for now, and doxy 1-2 weeks on discharge angiogram with angioplasty 11/29/21 POD 2 amputation 5th toe for failed antibiotic treatment, PT tomorrow Wound culture MRSA OBEY Improved back to baseline Monitor BMP Scalp infected sebaceous cyst Drained by surgical team Continue antibiotics hyperglycemia 2/2 Uncontrolled insulin dependent type 2 diabetes Still elevated in 250s continue Lantus to 50 units daily add preprandial 5units, conitnue correction dose Diabetic diet PAD s/p right popliteal angioplasty Continue dual antiplatelet therapy Vascular surgery following HTN Continue amlodipine and clonidine lisinopril on hold for obey Bipolar disorder/schizophrenia risperdal hyponatremia pseudohyponatremia from hyperglycemia DVT prophylaxis lovenox Full code reason for continued hospitalization:close monitoring after amputation Quality Stroke Does the patient have a stroke diagnosis?: No VTE Prior VTE?: No VTE Risk Level:: Medical - moderate - high VTE Device Contraindication: Treatment Not Indicated VTE Drug Contraindication: N/A - Med Ordered
[2021-12-02 11:47] LABS: Glucose, Whole Blood 309 mg/dL (60-115)
--- NOTE | 2021-12-02 12:09 | MHC.CM.PN ---
Addendum entered by Jenny Pizano RN 12/02/21 13:47: [facility] NOT CONTRACTED WITH PAT[facility]'S INSURANCE. PER [facility] SEARCH. [facility] D[facility]AZ AND [facility] ARE CONTRACTED. REFERRALS PLACED IN THE EVENT PATIENT DOES NEED SNF Addendum entered by Jenny Pizano RN 12/02/21 12:14: [facility] REFERRAL PLACED TO FOLLOW FOR POTENTIAL BED OFFER Original Note: PER [facility] LIAISON, PATIENT HAS NOT SEEN HIS PCP IN 2 YEARS AND MD WILL NOT SIGN ORDERS. MAY NEED STR. CASE MANAGEMENT TO FOLLOW FOR FRIDAY'S P.T. RECOMMENDATIONS.
--- NOTE | 2021-12-02 12:14 | HE.PHANOTE ---
After inputting the vancomycin doses from 12/01/21, [facility] suggests 1250 mg Q12H for AUC 477. (1 gm Q12H was suggested at only 382 AUC)
[2021-12-02 16:31] LABS: Glucose, Whole Blood 291 mg/dL (60-115)
[2021-12-02] MEDS: vancomycin HCL 1,250 MG in 0.9 % Sodium Chloride 250 ML 270 MG IV (19:30)
[2021-12-02] MEDS: OXcarbazepine 300 MG TABLET PO (19:30)
[2021-12-02 20:13] LABS: Glucose, Whole Blood 289 mg/dL (60-115)
[2021-12-02] MEDS: Enoxaparin Sodium 40 MG/0.4 ML SYRINGE SUBCUT (21:10)
[2021-12-03] VITALS (7 sets, daily range): BP systolic 132–198; BP diastolic 65–93; PULSE 72–97; RESP 16–19; TEMP 36.1–36.9; O2SAT 95–98
[2021-12-03] MEDS: Piperacillin Sodium/Tazobactam 3.375 GM in 0.9 % Sodium Chloride 50 ML IV ×3 (05:19→17:29)
[2021-12-03] MEDS: oxyCODONE HCl Immed Release 5 MG TABLET PO ×3 (05:23→20:09)
[2021-12-03] MEDS: Acetaminophen 325 MG TABLET 650 MG PO ×2 (05:23→15:39)
[2021-12-03 06:21] LABS: Hematocrit 30.9 % (42.0-52.0); Hemoglobin 10.4 g/dl (14.0-18.0); Mean Corpuscular HGB Conc 33.7 g/dl (31.0-36.0); Mean Corpuscular Hemoglobin 25.4 pg (27.0-33.0); Mean Corpuscular Volume 75.4 fL (80.0-98.0); Mean Platelet Volume 10.7 fL (9.4-12.4); Platelet Count 276 X10*3/uL (160-400); Red Cell Distribution Width 13.2 % (11.0-16.0)
[2021-12-03 07:13] LABS: Glucose, Whole Blood 326 mg/dL (60-115)
[2021-12-03 07:17] LABS: Anion Gap 15 (12-20); Blood Urea Nitrogen 19 mg/dL (9-16); Calcium 8.5 mg/dL (8.4-10.2); Carbon Dioxide 23 mmol/L (22-29); Chloride 99 mmol/L (96-108); Estimated Glomerular Filt Rate 57; Glucose Fasting 379 mg/dL (60-99); Potassium 4.6 mmol/L (3.3-5.1); Sodium 132 mmol/L (135-145)
[2021-12-03] MEDS: Insulin Lispro 100 UNIT/ML 3 ML VIAL SUBCUT ×8 (07:56→20:11)
[2021-12-03] MEDS: Insulin Glargine,Hum.rec.anlog 100 UNIT/ML 10 ML VIAL 50 UNIT SUBCUT (07:56)
[2021-12-03] MEDS: lisinopriL 20 MG TABLET PO (07:57)
[2021-12-03] MEDS: Clopidogrel Bisulfate 75 MG TABLET PO (07:57)
[2021-12-03] MEDS: Aspirin Enteric Coated 81 MG TABLET.DR PO (07:57)
[2021-12-03] MEDS: cloNIDine HCL 0.1 MG TABLET PO ×2 (07:57→20:09)
[2021-12-03] MEDS: amLODIPine Besylate 5 MG TABLET PO (07:57)
[2021-12-03] MEDS: risperiDONE 2 MG TABLET PO ×2 (07:57→20:09)
[2021-12-03] MEDS: 0.9 % Sodium Chloride Flush 3 ML SYRINGE IVFLUSH ×2 (07:58→15:32)
[2021-12-03] MEDS: vancomycin HCL 1,250 MG in 0.9 % Sodium Chloride 250 ML 270 MG IV ×2 (08:04→20:06)
--- NOTE | 2021-12-03 09:27 | HO.PM.IMPN ---
Subjective Subjective Date of Service: 12/03/21 Interval History: cc: nonhealing DFU interval history: no new complaints Cardiovascular Cardiovascular: Reports no additional cardiovascular complaints Respiratory Respiratory: Reports no additional respiratory complaints Physical Exam Vital Signs: Vital Signs: Last Vital Signs Temp 97 F 12/03/21 07:04 Pulse 75 12/03/21 07:04 Resp 16 12/03/21 07:04 BP 158/80 H 12/03/21 07:04 Pulse Ox 95 12/03/21 07:04 O2 Del Method 12/03/21 07:04 O2 Flow Rate 4 11/30/21 15:32 BMI result Body Mass Index 36.5 General: AO X 3, no acute distress Resp: CTA bilateral, no accessory muscles used CVS: S1,S2,RRR GI: soft, non tender, non distended Neuro: motor grossly intact, alert Psych: appropriate affect, appropriate insight Objective Data Active Medications Acetaminophen (Acetaminophen 325 Mg Tablet) 650 mg PO Q6H PRN PRN Reason: Pain, Severe (Pain Scale 7-10) Last Admin: 12/03/21 05:23 Dose: 650 mg Documented By: MADDY Acetaminophen (Acetaminophen 325 Mg Tablet) 650 mg PO ONCE PRN PRN Reason: Pain, Mild (Pain Scale 1-3) Amlodipine Besylate (Amlodipine Besylate 5 Mg Tablet) 5 mg PO DAILY [facility]; Protocol Last Admin: 12/03/21 07:57 Dose: 5 mg Documented By: CHELSEY Aspirin (Aspirin Enteric Coated 81 Mg Tablet.) 81 mg PO DAILY [facility] Last Admin: 12/03/21 07:57 Dose: 81 mg Documented By: CHELSEY Clonidine HCl (Clonidine Hcl 0.1 Mg Tablet) 0.1 mg PO BID [facility]; Protocol Last Admin: 12/03/21 07:57 Dose: 0.1 mg Documented By: CHELSEY Clopidogrel Bisulfate (Clopidogrel Bisulfate 75 Mg Tablet) 75 mg PO DAILY [facility] Last Admin: 12/03/21 07:57 Dose: 75 mg Documented By: CHELSEY Dextrose (Dextrose 50 % 25 Gm/50 Ml Syringe) 25 gm IVPUSH Q15M PRN; Protocol PRN Reason: per Hypoglycemia Standing Ord. Enoxaparin Sodium (Enoxaparin Sodium 40 Mg/0.4 Ml Syringe) 40 mg SUBCUT Q24H [facility] Last Admin: 12/02/21 21:10 Dose: 40 mg Documented By: MADDY Glucose (Glucose Gel 15 Gm Gel..Gram.) 15 gm PO Q15M PRN; Protocol PRN Reason: per Hypoglycemia Standing Ord. Piperacillin Sod/Tazobactam (Sod 3.375 gm/ Sodium Chloride) 50 mls @ 100 mls/hr IV Q6H [facility] Last Infusion: 12/03/21 06:23 Dose: 0 mls/hr Documented By: MADDY Vancomycin HCl 1,250 mg/ (Sodium Chloride) 250 mls @ 270 mls/hr IV Q12H [facility] Last Admin: 12/03/21 08:04 Dose: 270 mls/hr Documented By: CHELSEY Insulin Glargine (Insulin Glargine,Hum.Rec.Anlog 100 Unit/Ml 10 Ml Vial) 50 unit SUBCUT DAILY [facility] Last Admin: 12/03/21 07:56 Dose: 50 unit Documented By: CHELSEY Insulin Human Lispro (Insulin Lispro 100 Unit/Ml 3 Ml Vial) 0 unit SUBCUT QIDACHS [facility]; Protocol Last Admin: 12/03/21 07:56 Dose: 8 unit Documented By: CHELSEY Insulin Human Lispro (Insulin Lispro 100 Unit/Ml 3 Ml Vial) 5 unit SUBCUT QIDAS [facility] Last Admin: 12/03/21 07:56 Dose: 5 unit Documented By: CHELSEY Lisinopril (Lisinopril 20 Mg Tablet) 20 mg PO DAILY [facility]; Protocol Last Admin: 12/03/21 07:57 Dose: 20 mg Documented By: CHELSEY Ondansetron HCl (Ondansetron Hcl 4 Mg/2 Ml Vial) 4 mg IVPUSH Q8H PRN PRN Reason: Nausea and Vomiting Ondansetron HCl (Ondansetron Hcl 4 Mg/2 Ml Vial) 4 mg IVPUSH ONCE PRN PRN Reason: Nausea and Vomiting Oxcarbazepine (Oxcarbazepine 300 Mg Tablet) 300 mg PO BEDTIME [facility] Last Admin: 12/02/21 19:30 Dose: 300 mg Documented By: MADDY Oxycodone HCl (Oxycodone Hcl Immed Release 5 Mg Tablet) 5 mg PO Q6H PRN PRN Reason: Breakthrough Pain Last Admin: 12/03/21 05:23 Dose: 5 mg Documented By: MADDY Pharmacy Consult (Consult Rx Perform Med Rec) 1 each MISCELLANE ONCE PRN PRN Reason: Consult order Pharmacy Consult (Consult Rx Vancomycin Dosing) 1 each MISCELLANE DAILY PRN PRN Reason: Consult order Risperidone (Risperidone 2 Mg Tablet) 2 mg PO BID [facility] Last Admin: 12/03/21 07:57 Dose: 2 mg Documented By: CHELSEY Sodium Chloride (0.9 % Sodium Chloride Flush 3 Ml Syringe) 3 ml IVFLUSH QSHIFT [facility] Last Admin: 12/03/21 07:58 Dose: 3 ml Documented By: CHELSEY Labs CBC & Chem 7: 12/03/21 05:20 12/03/21 05:20 Labs: Laboratory Results - last 24 hr 12/02/21 12/02/21 12/02/21 11:34 16:12 19:44 MCV MCH MCHC RDW Plt Count MPV Absolute Nucleated RBC Nucleated RBC % (auto) Anion Gap Estim Creat Clear Calc Estimated GFR POC Glucose 309 H 291 H 289 H Fasting Glucose Calcium 12/03/21 12/03/21 12/03/21 05:20 05:20 07:04 MCV 75.4 L MCH 25.4 L MCHC 33.7 RDW 13.2 Plt Count 276 MPV 10.7 Absolute Nucleated RBC 0.000 Nucleated RBC % (auto) 0.0 Anion Gap 15 Estim Creat Clear Calc 80.0 Estimated GFR 57 POC Glucose 326 H Fasting Glucose 379 H* D Calcium 8.5 Assessment and Plan (1) Hyponatremia: Status: Acute (2) Acute on chronic osteomyelitis: Status: Acute (3) Hyperglycemia: Status: Acute Plan 51-year-old male with history of insulin-dependent type 2 diabetes with peripheral artery disease s/p right tibial angioplasty 09/10/21, hypertension, hepatitis-C, bipolar disorder, schizophrenia, and chronic osteomyelitis with nonhealing diabetic foot ulcer of the right 5th metatarsal being admitted for acute on chronic osteolyelitis with nonhealing diabetic foot ulcer of the right 5th metatarsal head. Acute on chronic diabetes related osteomyelitis 2/2 Nonhealing ulcer overlying right metataral head s/p open fracture 5th toe 3 months ago with nonhealing ulcer Xray right toes showed acute on chronic osteomyelitis of right 5th metatarsal head and proximal phalnyx Failed outpatient IV antibiotics Blood cultures negative Continue IV vanco and zosyn for now, and doxy 1-2 weeks on discharge angiogram with angioplasty 11/29/21 POD 3 amputation 5th toe for failed antibiotic treatment, PT today Wound culture MRSA OBEY Improved back to baseline Monitor BMP Scalp infected sebaceous cyst Drained by surgical team Continue antibiotics hyperglycemia 2/2 Uncontrolled insulin dependent type 2 diabetes Still elevated in 250s continue Lantus to 50 units daily preprandial 5units, conitnue correction dose Diabetic diet PAD s/p right popliteal angioplasty Continue dual antiplatelet therapy Vascular surgery following HTN Continue amlodipine and clonidine lisinopril on hold for obey Bipolar disorder/schizophrenia risperdal hyponatremia pseudohyponatremia from hyperglycemia DVT prophylaxis lovenox Full code reason for continued hospitalization:close monitoring after amputation Quality Stroke Does the patient have a stroke diagnosis?: No VTE Prior VTE?: No VTE Risk Level:: Medical - moderate - high VTE Device Contraindication: Treatment Not Indicated VTE Drug Contraindication: N/A - Med Ordered
[2021-12-03 11:23] LABS: Glucose, Whole Blood 286 mg/dL (60-115)
--- NOTE | 2021-12-03 12:28 | HO.VASCPN ---
Subjective Subjective Date of Service: 12/03/21 Patient reports: no new complaints and feels better Interval history: Very pleasant 51-year-old gentleman status post right 5th toe ray amputation S for hospital follow-up. He reports he had done well over the weekend. No significant pain. Relatively comfortable. He is most concerned about his discharge status. Physical Exam Vital Signs: Vital Signs: Last Vital Signs Temp 98 F 12/03/21 11:11 Pulse 72 12/03/21 11:11 Resp 16 12/03/21 11:11 BP 152/80 H 12/03/21 11:11 Pulse Ox 98 12/03/21 11:11 O2 Del Method 12/03/21 11:11 O2 Flow Rate 4 11/30/21 15:32 BMI result Body Mass Index 36.5 Const: General: cooperative, healthy appearing and no acute distress Orientation/consciousness: oriented to person, oriented to place and oriented to time HEENT: Head: Yes normal to inspection Neck: Carotids: no bruits Chest: Chest palpation & inspection: normal inspection of the chest Resp: Effort & Inspection: normal respiratory effort and able to speak in complete sentences Auscultation: clear to auscultation bilaterally Cardio: Rate: regular rate Heart sounds: S1 normal heart sound present and S2 normal heart sound present GI: Inspection: Yes normal to inspection Skin: Other: Right 5th toe amputation site healing well still open incision line from operation - clean General skin exam: no rashes or lesions noted Wounds: no wounds Neuro: General: oriented to person, oriented to place, oriented to time and CN's II-XI intact bilaterally Extrem: General: Yes normal to inspection, Yes full ROM and Yes no clubbing, cyanosis or edema Psych: Appearance: grossly normal and well kempt Speech and movement: Normal speech and movement present Affect: normal affect Progress Note: A&P Assessment and plan (1) PAD (peripheral artery disease): Status: Acute Assessment and Plan: In short patient is status post right 5th toe amputation. Doing relatively well. Stable from my perspective for discharge. Discharge instructions for wound care will be written. In addition offloading boot. I do not think he will need additional antibiotics. The incision line is not closed and that was done purposefully due to the underlying infection. He may be better served with a rehab facility as his diabetes is poorly controlled and may need more closer attentive to care to the amputation site. The patient can follow up with us in approximately 2 weeks for suture and staple removal. Thank you for allowing us to assist in his care. Time Spent With Patient Time: Total time spent is greater than 50% in coordination of care (as documented) at patient's floor/unit and/or counseling patient: Procedures Date of Service Date of Service: 12/03/21 Quality Stroke Does the patient have a stroke diagnosis?: No VTE Prior VTE?: No VTE Risk Level:: Medical - moderate - high VTE Device Contraindication: Treatment Not Indicated VTE Drug Contraindication: N/A - Med Ordered
[2021-12-03 15:58] LABS: Glucose, Whole Blood 284 mg/dL (60-115)
[2021-12-03 18:50] LABS: Vancomycin Trough 15.9 mcg/mL (10.0-20.0)
[2021-12-03 19:23] LABS: Glucose, Whole Blood 172 mg/dL (60-115)
--- NOTE | 2021-12-03 19:44 | HE.PHANOTE ---
Vancomycin Dosing Addendum Vancomycin trough 15.p. Continue with current regimen of 1250 mg q12h. Predicted AUC of 509. Next trough 12/04/21 @1800.
[2021-12-03] MEDS: Enoxaparin Sodium 40 MG/0.4 ML SYRINGE SUBCUT (20:08)
[2021-12-03] MEDS: OXcarbazepine 300 MG TABLET PO (20:09)
[2021-12-04] VITALS: BP 135/69; PULSE 81; RESP 18; TEMP 36.5; O2SAT 97
[2021-12-04] MEDS: Piperacillin Sodium/Tazobactam 3.375 GM in 0.9 % Sodium Chloride 50 ML IV ×2 (00:33→06:18)
[2021-12-04] MEDS: 0.9 % Sodium Chloride Flush 3 ML SYRINGE IVFLUSH ×3 (00:33→17:30)
[2021-12-04] MEDS: Acetaminophen 325 MG TABLET 650 MG PO (00:40)
[2021-12-04 04:00] VITALS: BP 137/79; PULSE 76; RESP 18; TEMP 36.7; O2SAT 97
[2021-12-04] MEDS: oxyCODONE HCl Immed Release 5 MG TABLET PO ×2 (06:24→13:41)
[2021-12-04 06:57] VITALS: BP 138/63; PULSE 71; RESP 18; TEMP 36.6; O2SAT 96
[2021-12-04 07:15] LABS: Glucose, Whole Blood 246 mg/dL (60-115)
[2021-12-04] MEDS: vancomycin HCL 1,250 MG in 0.9 % Sodium Chloride 250 ML 270 MG IV (08:05)
[2021-12-04] MEDS: Insulin Lispro 100 UNIT/ML 3 ML VIAL SUBCUT ×6 (08:06→17:30)
[2021-12-04] MEDS: Insulin Glargine,Hum.rec.anlog 100 UNIT/ML 10 ML VIAL 50 UNIT SUBCUT (08:06)
[2021-12-04] MEDS: Aspirin Enteric Coated 81 MG TABLET.DR PO (08:09)
[2021-12-04] MEDS: lisinopriL 20 MG TABLET PO (08:10)
[2021-12-04] MEDS: risperiDONE 2 MG TABLET PO (08:10)
[2021-12-04] MEDS: Clopidogrel Bisulfate 75 MG TABLET PO (08:10)
[2021-12-04] MEDS: amLODIPine Besylate 5 MG TABLET PO (08:10)
[2021-12-04] MEDS: cloNIDine HCL 0.1 MG TABLET PO (08:10)
[2021-12-04 09:11] LABS: Creatinine Clr Calc Pharmacy 78.9; Estimated Glomerular Filt Rate 56
--- NOTE | 2021-12-04 09:23 | HE.PHANOTE ---
Vancomycin Dosing Patient renal function stable. Continue current regimen vancomycin 1250 mg Q12H. Expected AUC 514 with a trough of 14.7. Next trough 12/05 @ 1800. Argenis MatiasD
--- NOTE | 2021-12-04 09:33 | W.MHC.F2F ---
Service Date Service Date: 12/04/21 Encounter Date of encounter: 12/04/21 Reasons for Services Signs and symptoms assessed: difficulty ambulating Reason for usp: wound care (Wound care upon discharge: xeroform, 4x4 and Kerlix wrap to be changed daily. Please call Dr. Holt at [phone] for 2 week follow up for suture and staple removal) Homebound: Leaving the home is medically contraindicated at this time without the asist of a device and/or another person due th the listed conditions above and below. Reason homebound: unsteady gait / fall risk Certification: Based on the above findings, I certify that this patient is confined to the home and needs intermittent usp care, physical therapy and/or speech therapy, or continues to need occupational therapy. The patient is under my care, and I have initiated the establishment of the plan of care. The patient will be followed by a physician who will periodically review the plan of care.
--- NOTE | 2021-12-04 09:33 | PM.DS ---
DS: Providers Provider Date of Service: 12/04/21 Date of admission: 11/24/21 20:47 Primary care physician: Victorina Corbett MD Consults: 11/24/21 20:46 Consult to Infectious Diseases Routine Consulting Provider: Lani Mcclellan Reason for consultation: osteomyelitis, diabetic foot infection Consult to Vascular Surgery Routine Consulting Provider: Angel Robertson Reason for consultation: osteomyelitis, diabetic foot ulcer 11/24/21 22:07 Consult to General Surgery Routine Consulting Provider: Justin Chen Reason for consultation: scalp abscess vs infected sebaceous cyst 11/25/21 10:29 Consult to Vascular Surgery Routine Consulting Provider: Angel Robertson Reason for consultation: diabetic foot, RIGHT Has provider been notified: No DS: Diagnosis Discharge Diagnosis (1) PAD (peripheral artery disease): Status: Acute DS: Summary Hospital Course Hospital Course: from initial hpi: 51-year-old male with history of insulin-dependent type 2 diabetes with peripheral artery disease s/p right tibial angioplasty 09/10/21, hypertension, hepatitis-C, bipolar disorder, schizophrenia, and chronic osteomyelitis with nonhealing diabetic foot ulcer of the right 5th metatarsal presenting to the ED today for evaluation of worsening pain, subjective fevers, chills, sweats, and purulent drainage from ulcer of the base of the right fifth toe over the last 4 days. Pt injured his left great toe and sustained an open fracture of the right 5th toe well in [place] after falling off a horse.? The fracture was complicated by osteomyelitis and he received 3 weeks of IV antibiotics in [place] followed by oral antibiotics for 1 week prior to flying to [place].? He was then hospitalized for the nonhealing ulcer that developed and osteomyelitis and treated with ertapenem.? Was discharged with PICC line and completed 6 weeks of ertapenem last month. In the ED, no luekocytosis. Stable chronic microcytic anemia with H/H of 11.6/34.8 %.? On arrival random glucose of 627 with sodium of 128, chloride 94, creatinine 1.58, BUN 22 CRP 7.46.? Received 5 units regular insulin with improvement in glucose to 349. Xray of the right toes show acute on chronic osteomyelitis at the 5th metatarsal head and 5th proximal phalynx with increased osseous erosion compared to prior radiographs. Given empiric vanco and zosyn. Blood cultures and wound culture pending. He is reporting 10/10 pain in the foot/toe and has been ambulating with a cane. hospital course: Patient was admitted for acute on chronic diabetes related osteomyelitis secondary to nonhealing ulcer over right metatarsal head. He was status post open fracture of the 5th toe 3 months prior to presentation. X-ray showed acute on chronic osteomyelitis. He was given IV vancomycin Zosyn he underwent angiogram with angioplasty 11/29/2021. He then underwent amputation of 5th toe. Wound culture grew MRSA. He was seen by infectious disease recommended 1-2 weeks of doxycycline on discharge. Patient presented with acute kidney injury which improved back to baseline. Patient had a scalp infected sebaceous cyst which was drained by surgical team. He has diabetes that is uncontrolled and has hyperglycemia. He was treated with basal bolus insulin and sugars improved. For his peripheral vascular disease he was continue on dual antiplatelet. For hypertension he is continue amlodipine and clonidine, he will restart lisinopril on discharge. For his bipolar disorder he was continued on Risperdal. Patient is doing better will be discharged home. He will follow up with vascular surgery in 2 weeks. Time Spent with Patient Time attestation: Total time spent providing and/or coordinating discharge services: Discharge coordination time: Greater than 30 minutes Quality: Safe Use of Opioids Does Pt have an Active Cancer Diagnosis on the Problem List?: No Quality: Stroke Does the patient have a stroke diagnosis?: No Physical Exam Vital Signs: Vital Signs: Last Vital Signs Temp 98 F 12/04/21 06:57 Pulse 71 12/04/21 06:57 Resp 18 12/04/21 06:57 BP 138/63 12/04/21 06:57 Pulse Ox 96 12/04/21 06:57 O2 Del Method 12/04/21 06:57 O2 Flow Rate 4 11/30/21 15:32 BMI result Body Mass Index 36.5 Const: General: cooperative, healthy appearing and no acute distress Orientation/consciousness: oriented to person, oriented to place and oriented to time HEENT: Head: Yes normal to inspection Neck: Carotids: no bruits Chest: Chest palpation & inspection: normal inspection of the chest Resp: Effort & Inspection: normal respiratory effort and able to speak in complete sentences Auscultation: clear to auscultation bilaterally Cardio: Rate: regular rate Heart sounds: S1 normal heart sound present and S2 normal heart sound present GI: Inspection: Yes normal to inspection Skin: Other: Right 5th toe amputation site healing well still open incision line from operation - clean General skin exam: no rashes or lesions noted Wounds: no wounds Neuro: General: oriented to person, oriented to place, oriented to time and CN's II-XI intact bilaterally Extrem: General: Yes normal to inspection, Yes full ROM and Yes no clubbing, cyanosis or edema Psych: Appearance: grossly normal and well kempt Speech and movement: Normal speech and movement present Affect: normal affect DS: Data Data Completed and Pending Completed studies during hospitalization [Text1]: Procedures Dilation of Right Anterior Tibial Artery using Drug-Coated Balloon, Percutaneous Approach (09/06/21) Dilation of Right Posterior Tibial Artery using Drug-Coated Balloon, Percutaneous Approach (09/06/21) Insertion of Infusion Device into Superior Vena Cava, Percutaneous Approach (09/06/21) Ultrasonography of Superior Vena Cava, Guidance (09/06/21) Pending studies at discharge: Pending at discharge 11/30/21 15:16 Surgical [PTH] Routine Labs on day of discharge: Laboratory Results - last 24 hr 12/03/21 12/03/21 12/03/21 11:11 15:18 18:18 Creatinine Estim Creat Clear Calc Estimated GFR POC Glucose 286 H 284 H Vancomycin Trough 15.9 12/03/21 12/04/21 12/04/21 19:12 06:57 08:35 Creatinine 1.34 Estim Creat Clear Calc 78.9 Estimated GFR 56 POC Glucose 172 H 246 H Vancomycin Trough Discharge Plan Discharge Patient Disposition: Home Health Service Discharge Diagnosis: dfu Referrals: Victorina Corbett MD [Primary Care Provider] - 1 Week Discharge Medications: New doxycycline hyclate 100 mg tablet 100 mg PO BID Qty: 20 0RF oxycodone 5 mg Tablet 5 mg PO Q6H PRN (Reason: Breakthrough Pain) Qty: 10 0RF Rx Instructions: Partial Fill upon patient request. Continued (DME) Allevyn Gentle Border 5 X 5 bandage See Rx Instructions .Route Qty: 40 2RF Rx Instructions: As directed amlodipine 5 mg tablet 5 mg PO DAILY 30 Days Qty: 30 8RF Protocol: Hold for SBP< HOLD for SBP < : 90 aspirin 81 mg tablet,delayed release (DR/EC) 81 mg PO DAILY 30 Days Qty: 30 8RF clonidine HCl 0.1 mg tablet 0.1 mg PO BID Qty: 60 8RF clopidogrel 75 mg tablet 75 mg PO DAILY 30 Days Qty: 30 11RF Rx Instructions: stent placed 09/05/21 will need for one year or longer Humulin 70/30 U-100 Insulin 100 unit/mL (70-30) suspension 50 unit subcut DAILY@1700 30 Days Qty: 15 8RF Humulin 70/30 U-100 Insulin 100 unit/mL (70-30) suspension 45 unit SUBCUT QAM 30 Days Qty: 13.5 8RF lisinopril 10 mg tablet 20 mg PO DAILY Qty: 60 8RF oxcarbazepine 300 mg tablet 300 mg PO BEDTIME Qty: 30 8RF risperidone [Risperdal] 2 mg tablet 2 mg PO BID Qty: 60 8RF (DME) cane Device See Rx Instructions .Route Qty: 1 0RF Rx Instructions: As directed Discontinued ertapenem 1 gram recon soln 1 g IM Q24H Qty: 39 0RF Discharge Orders: Discharge Order (Routine); Ordered 12/04/21 Ordered By: Serafin Carmichael Diet: Diabetic diet Activity on Discharge: heel touch Stand Alone Forms: Patient Portal Discharge page Activity Restrictions/Additional Instructions: Wound care upon discharge: xeroform, 4x4 and Kerlix wrap to be changed daily. Please call Dr. Robertson at [phone] for 2 week follow up for suture and staple removal Care Plan Goals: recovery Health Concerns: dfu Plan of Treatment: 10 more days of doxy, follow up with dr robertson Assessment: see above
--- NOTE | 2021-12-04 10:01 | HO.PM.IMPN ---
Subjective Subjective Date of Service: 12/04/21 Interval History: cc: nonhealing DFU interval history: no new complaints Cardiovascular Cardiovascular: Reports no additional cardiovascular complaints Respiratory Respiratory: Reports no additional respiratory complaints Physical Exam Vital Signs: Vital Signs: Last Vital Signs Temp 98 F 12/04/21 06:57 Pulse 71 12/04/21 06:57 Resp 18 12/04/21 06:57 BP 138/63 12/04/21 06:57 Pulse Ox 96 12/04/21 06:57 O2 Del Method 12/04/21 06:57 O2 Flow Rate 4 11/30/21 15:32 BMI result Body Mass Index 36.5 Const: General: cooperative, healthy appearing and no acute distress Orientation/consciousness: oriented to person, oriented to place and oriented to time HEENT: Head: Yes normal to inspection Neck: Carotids: no bruits Chest: Chest palpation & inspection: normal inspection of the chest Resp: Effort & Inspection: normal respiratory effort and able to speak in complete sentences Auscultation: clear to auscultation bilaterally Cardio: Rate: regular rate Heart sounds: S1 normal heart sound present and S2 normal heart sound present GI: Inspection: Yes normal to inspection Skin: Other: Right 5th toe amputation site healing well still open incision line from operation - clean General skin exam: no rashes or lesions noted Wounds: no wounds Neuro: General: oriented to person, oriented to place, oriented to time and CN's II-XI intact bilaterally Extrem: General: Yes normal to inspection, Yes full ROM and Yes no clubbing, cyanosis or edema Psych: Appearance: grossly normal and well kempt Speech and movement: Normal speech and movement present Affect: normal affect Objective Data Active Medications Acetaminophen (Acetaminophen 325 Mg Tablet) 650 mg PO Q6H PRN PRN Reason: Pain, Severe (Pain Scale 7-10) Last Admin: 12/04/21 00:40 Dose: 650 mg Documented By: JOHN Acetaminophen (Acetaminophen 325 Mg Tablet) 650 mg PO ONCE PRN PRN Reason: Pain, Mild (Pain Scale 1-3) Amlodipine Besylate (Amlodipine Besylate 5 Mg Tablet) 5 mg PO DAILY [facility]; Protocol Last Admin: 12/04/21 08:10 Dose: 5 mg Documented By: CHELSEY Aspirin (Aspirin Enteric Coated 81 Mg Tablet.) 81 mg PO DAILY [facility] Last Admin: 12/04/21 08:09 Dose: 81 mg Documented By: CHELSEY Clonidine HCl (Clonidine Hcl 0.1 Mg Tablet) 0.1 mg PO BID [facility]; Protocol Last Admin: 12/04/21 08:10 Dose: 0.1 mg Documented By: CHELSEY Clopidogrel Bisulfate (Clopidogrel Bisulfate 75 Mg Tablet) 75 mg PO DAILY [facility] Last Admin: 12/04/21 08:10 Dose: 75 mg Documented By: CHELSEY Dextrose (Dextrose 50 % 25 Gm/50 Ml Syringe) 25 gm IVPUSH Q15M PRN; Protocol PRN Reason: per Hypoglycemia Standing Ord. Enoxaparin Sodium (Enoxaparin Sodium 40 Mg/0.4 Ml Syringe) 40 mg SUBCUT Q24H [facility] Last Admin: 12/03/21 20:08 Dose: 40 mg Documented By: BRIAN Glucose (Glucose Gel 15 Gm Gel..Gram.) 15 gm PO Q15M PRN; Protocol PRN Reason: per Hypoglycemia Standing Ord. Piperacillin Sod/Tazobactam (Sod 3.375 gm/ Sodium Chloride) 50 mls @ 100 mls/hr IV Q6H [facility] Last Infusion: 12/04/21 06:51 Dose: 0 mls/hr Documented By: JOHN Vancomycin HCl 1,250 mg/ (Sodium Chloride) 250 mls @ 270 mls/hr IV Q12H [facility] Last Infusion: 12/04/21 09:55 Dose: 0 mls/hr Documented By: CHELSEY Insulin Glargine (Insulin Glargine,Hum.Rec.Anlog 100 Unit/Ml 10 Ml Vial) 50 unit SUBCUT DAILY [facility] Last Admin: 12/04/21 08:06 Dose: 50 unit Documented By: CHELSEY Insulin Human Lispro (Insulin Lispro 100 Unit/Ml 3 Ml Vial) 0 unit SUBCUT QIDACHS [facility]; Protocol Last Admin: 12/04/21 08:06 Dose: 4 unit Documented By: CHELSEY Insulin Human Lispro (Insulin Lispro 100 Unit/Ml 3 Ml Vial) 5 unit SUBCUT QIDACHS [facility] Last Admin: 12/04/21 08:06 Dose: 5 unit Documented By: CHELSEY Lisinopril (Lisinopril 20 Mg Tablet) 20 mg PO DAILY [facility]; Protocol Last Admin: 12/04/21 08:10 Dose: 20 mg Documented By: CHELSEY Ondansetron HCl (Ondansetron Hcl 4 Mg/2 Ml Vial) 4 mg IVPUSH Q8H PRN PRN Reason: Nausea and Vomiting Ondansetron HCl (Ondansetron Hcl 4 Mg/2 Ml Vial) 4 mg IVPUSH ONCE PRN PRN Reason: Nausea and Vomiting Oxcarbazepine (Oxcarbazepine 300 Mg Tablet) 300 mg PO BEDTIME [facility] Last Admin: 12/03/21 20:09 Dose: 300 mg Documented By: BRIAN Oxycodone HCl (Oxycodone Hcl Immed Release 5 Mg Tablet) 5 mg PO Q6H PRN PRN Reason: Breakthrough Pain Last Admin: 12/04/21 06:24 Dose: 5 mg Documented By: JOHN Pharmacy Consult (Consult Rx Perform Med Rec) 1 each MISCELLANE ONCE PRN PRN Reason: Consult order Pharmacy Consult (Consult Rx Vancomycin Dosing) 1 each MISCELLANE DAILY PRN PRN Reason: Consult order Risperidone (Risperidone 2 Mg Tablet) 2 mg PO BID [facility] Last Admin: 12/04/21 08:10 Dose: 2 mg Documented By: CHELSEY Sodium Chloride (0.9 % Sodium Chloride Flush 3 Ml Syringe) 3 ml IVFLUSH QSHIFT [facility] Last Admin: 12/04/21 08:03 Dose: 3 ml Documented By: CHELSEY Labs CBC & Chem 7: 12/03/21 05:20 12/04/21 08:35 Labs: Laboratory Results - last 24 hr 12/03/21 12/03/21 12/03/21 11:11 15:18 18:18 Estim Creat Clear Calc Estimated GFR POC Glucose 286 H 284 H Vancomycin Trough 15.9 12/03/21 12/04/21 12/04/21 19:12 06:57 08:35 Estim Creat Clear Calc 78.9 Estimated GFR 56 POC Glucose 172 H 246 H Vancomycin Trough Assessment and Plan (1) Hyponatremia: Status: Acute (2) Acute on chronic osteomyelitis: Status: Acute (3) Hyperglycemia: Status: Acute Plan 51-year-old male with history of insulin-dependent type 2 diabetes with peripheral artery disease s/p right tibial angioplasty 09/10/21, hypertension, hepatitis-C, bipolar disorder, schizophrenia, and chronic osteomyelitis with nonhealing diabetic foot ulcer of the right 5th metatarsal being admitted for acute on chronic osteolyelitis with nonhealing diabetic foot ulcer of the right 5th metatarsal head. Acute on chronic diabetes related osteomyelitis 2/2 Nonhealing ulcer overlying right metataral head s/p open fracture 5th toe 3 months ago with nonhealing ulcer Xray right toes showed acute on chronic osteomyelitis of right 5th metatarsal head and proximal phalnyx Failed outpatient IV antibiotics Blood cultures negative completed IV vanco and zosyn will transition to doxy 1-2 weeks angiogram with angioplasty 11/29/21 POD 4 amputation 5th toe for failed antibiotic treatment, PT today Wound culture MRSA OBEY Improved back to baseline Monitor BMP Scalp infected sebaceous cyst Drained by surgical team Continue antibiotics hyperglycemia 2/2 Uncontrolled insulin dependent type 2 diabetes continue Lantus to 50 units daily preprandial 5units, conitnue correction dose Diabetic diet PAD s/p right popliteal angioplasty Continue dual antiplatelet therapy Vascular surgery following HTN Continue amlodipine and clonidine lisinopril on hold for obey Bipolar disorder/schizophrenia risperdal hyponatremia pseudohyponatremia from hyperglycemia DVT prophylaxis lovenox Full code reason for continued hospitalization:needs help with dressing changes on discharge Quality Stroke Does the patient have a stroke diagnosis?: No VTE Prior VTE?: No VTE Risk Level:: Medical - moderate - high VTE Device Contraindication: Treatment Not Indicated VTE Drug Contraindication: N/A - Med Ordered
[2021-12-04 11:04] VITALS: BP 145/86; PULSE 81; RESP 18; TEMP 36; O2SAT 97
[2021-12-04 11:25] LABS: Glucose, Whole Blood 281 mg/dL (60-115)
--- NOTE | 2021-12-04 12:06 | MHC.CM.PN ---
WITH HOME ADVISOR ASSIST, T/W SPOKE WITH PATIENT. PATIENT IS AWARE THAT THERE ARE NO BED OFFERS AND NO [facility] IS ABLE TO PROVIDE RN SKILLS PATIENT HASN OT SEEN HIS PCP IN 2 YEARS. PATIENT FEELS COMFORTABLE DOING HIS OWN DRESSING CHANGESAND GOING HOME WITH FAMILY SUPPORT. HE REPORTS [facility] FAMILY CAN ALSO ASSIST. HE PREFERS TO DC TODAY. HE WILL NOTIFY HIS BROTHER TO PROVIDE TRANSPORT. RN AWARE OF PLAN.
[2021-12-04 15:22] VITALS: BP 120/72; PULSE 104; RESP 19; TEMP 36.1; O2SAT 98
[2021-12-04 15:30] LABS: Glucose, Whole Blood 327 mg/dL (60-115)
== END 2021-12-04 17:59 | disposition home health service (06) | DRG 314 ==
LOC: HO.ED 19:32 → HO.EDOVER 20:54 → HO.S3 11-25 15:32
PROVIDERS: Internal Medicine; Physician Assistant; Student in an Organized Health Care Education/Training Program; Surgery Vascular Surgery; Admitting Provider Physician Assistant; Emergency Provider Emergency Medicine; PCP Family Medicine; Visit Provider Internal Medicine
PROC: 047P3Z1 Dilation of Right Anterior Tibial Artery using Drug-Coated Balloon, Percutaneous Approach (ICD-10-PCS; principal; 2021-11-29 07:30)
PROC: 0Y6X0Z0 Detachment at Right 5th Toe, Complete, Open Approach (ICD-10-PCS; principal; 2021-11-30 13:30)
DX: E11.69 Type 2 diabetes mellitus with other specified complication (principal); N17.9 Acute kidney failure, unspecified; M86.171 Other acute osteomyelitis, right ankle and foot; L97.519 Non-pressure chronic ulcer of other part of right foot with unspecified severity; E11.51 Type 2 diabetes mellitus with diabetic peripheral angiopathy without gangrene; E11.65 Type 2 diabetes mellitus with hyperglycemia; B95.62 Methicillin resistant Staphylococcus aureus infection as the cause of diseases classified elsewhere; F20.9 Schizophrenia, unspecified; M86.671 Other chronic osteomyelitis, right ankle and foot; F31.9 Bipolar disorder, unspecified; L72.3 Sebaceous cyst; I70.235 Atherosclerosis of native arteries of right leg with ulceration of other part of foot; D50.9 Iron deficiency anemia, unspecified; Z20.822 Contact with and (suspected) exposure to COVID-19; Z86.19 Personal history of other infectious and parasitic diseases; Z79.02 Long term (current) use of antithrombotics/antiplatelets; Z87.891 Personal history of nicotine dependence; Z79.4 Long term (current) use of insulin; Z79.82 Long term (current) use of aspirin; Z79.899 Other long term (current) drug therapy
CPT/HCPCS: 36415; 37228; 37232; 73660; 76937; 80048; 80076; 80202; 81001; 82009; 82565; 82803; 82947; 83605; 83735; 83880; 85025; 85027; 85610; 85652; 85730; 86140; 87040; 87071; 87077; 87186; 87205; 87635; 88305; 88311; 93923; 93925; 96365; 96366; 96367; 96375; 97116; 97162; 99152; 99153; 99285; C1725; C1760; C1769; C1887; J1170; J1335; J1650; J2543; J3010; J3370; Q9967

== ENCOUNTER → 2021-12-18 10:59 | Outpatient (BNVA) | payer OTHER, SELFPAY | PROVIDERS: PCP Family Medicine; Visit Provider Surgery Vascular Surgery | DX: L97.519 Non-pressure chronic ulcer of other part of right foot with unspecified severity (principal); I73.9 Peripheral vascular disease, unspecified; Z89.421 Acquired absence of other right toe(s) | CPT/HCPCS: 99212 ==

== ENCOUNTER 2022-01-01 10:31 | Outpatient (RCR) | payer OTHER, SELFPAY | END 2022-04-16 15:32 | disposition home or self-care (01) | LOC: HO.WCC 10:31 | PROVIDERS: PCP Family Medicine; Visit Provider Physician Assistant | DX: Z09 Encounter for follow-up examination after completed treatment for conditions other than malignant neoplasm (principal); B18.9 Chronic viral hepatitis, unspecified; I10 Essential (primary) hypertension; F20.9 Schizophrenia, unspecified; F31.9 Bipolar disorder, unspecified; Z89.421 Acquired absence of other right toe(s); Z87.891 Personal history of nicotine dependence; Z86.31 Personal history of diabetic foot ulcer | CPT/HCPCS: 11042; 87070; 87077; 87147; 87186; 87205; 99212; 99213; 99214 ==

== ENCOUNTER → 2022-01-03 09:37 | Outpatient (BNVA) | payer OTHER, SELFPAY | PROVIDERS: PCP Hospitalist; Visit Provider Surgery Vascular Surgery | DX: I73.9 Peripheral vascular disease, unspecified (principal) | CPT/HCPCS: 99212 ==

== ENCOUNTER 2022-01-08 15:44 | Inpatient (IN) | payer OTHER, SELFPAY ==
--- NOTE | ~2022-01-08 | XR_ITS ---
EXAMINATION: XR FOOT, RIGHT CLINICAL INFORMATION: Wound, pain, evaluate for osteomyelitis. COMPARISON: 11/24/2021. TECHNIQUE: AP, lateral, and oblique views of the right foot. FINDINGS: Status post partial osteotomy of the fifth toe to the level of the mid metatarsal bone. There are multiple osseous fragments adjacent to the osteotomy site with irregular borders, worrisome for osteomyelitis. There is overlying soft tissue swelling and a large ulceration along the lateral surface of the foot. No acute fracture or dislocation. XR/XR foot RT min 3V IMPRESSION: Status post partial osteotomy of the fifth toe to the level of the mid metatarsal bone. There are multiple osseous fragments adjacent to the osteotomy site with irregular borders, worrisome for osteomyelitis. Correlate clinically, and if indicated consider further evaluation with an MR.
--- NOTE | ~2022-01-08 | IR_ITS ---
PROCEDURE: IR INSERTION OF PICC CLINICAL INFORMATION: Long-term IV antibiotic requirement. Right foot infection. COMPARISON: None TECHNIQUE: Procedure and risks and benefits including bleeding, infection and blood clot were discussed with the patient and informed consent was obtained. All elements of maximal sterile barrier technique followed including use of cap, mask, sterile gown, sterile gloves, a sterile full body drape and hand hygiene. Also followed skin preparation with 2% chlorhexidine for cutaneous antisepsis, and sterile ultrasound preparation with sterile gel and probe cover when applicable. The right upper arm was prepped and draped in the usual sterile fashion. The skin and soft tissues were anesthetized with 1% lidocaine plain. Using ultrasound guidance, right 4 Nepalese double-lumen PICC line was positioned. Catheter tip is in the SVC. Catheter length is 38 cm. FLUOROSCOPY TIME: 0.1 minute DAP: 56 cGy-cm2 FINDINGS: There is a right upper extremity PICC line with tip projecting over the SVC. IR/IR us guide venous access IMPRESSION: Right upper extremity PICC line placement.
--- NOTE | ~2022-01-08 | IR_ITS ---
PROCEDURE: IR INSERTION OF PICC CLINICAL INFORMATION: Long-term IV antibiotic requirement. Right foot infection. COMPARISON: None TECHNIQUE: Procedure and risks and benefits including bleeding, infection and blood clot were discussed with the patient and informed consent was obtained. All elements of maximal sterile barrier technique followed including use of cap, mask, sterile gown, sterile gloves, a sterile full body drape and hand hygiene. Also followed skin preparation with 2% chlorhexidine for cutaneous antisepsis, and sterile ultrasound preparation with sterile gel and probe cover when applicable. The right upper arm was prepped and draped in the usual sterile fashion. The skin and soft tissues were anesthetized with 1% lidocaine plain. Using ultrasound guidance, right 4 [place]ian double-lumen PICC line was positioned. Catheter tip is in the SVC. Catheter length is 38 cm. FLUOROSCOPY TIME: 0.1 minute DAP: 56 cGy-cm2 FINDINGS: There is a right upper extremity PICC line with tip projecting over the SVC. IR/IR cvc insert peripheral IMPRESSION: Right upper extremity PICC line placement.
[2022-01-08 17:17] VITALS: BP 162/90; PULSE 105; RESP 20; TEMP 36.7; O2SAT 98; BMI 34.4
[2022-01-08 21:10] VITALS: BP 176/78; PULSE 97; RESP 14; TEMP 38; O2SAT 98
--- NOTE | 2022-01-08 21:12 | ED.WOUNDLAC ---
HPI - Wound/Laceration General Chief Complaint: Wound/Laceration Stated Complaint: amputation done, swollen site Time Seen by Provider: 01/08/22 20:57 Source: patient Mode of arrival: ambulatory Limitations: no limitations History of Present Illness HPI narrative: Patient presents emergency department for evaluation of right toe amputation site with concern for infection. He was sent to the emergency department from wound care. Per family member, [id number], and wound is appearing were since 4 days ago, with swelling more proximal on the lateral aspect of the foot, and purulent drainage. Gram stain and culture was obtained at wound clinic today. Patient currently not on any antibiotics. The foot is painful. Denies fevers or chills home. Related Data Previous Rx's Medication Instructions Recorded amlodipine 5 mg tablet 5 mg PO DAILY 30 days #30 tabs 10/10/21 aspirin 81 mg tablet,delayed 81 mg PO DAILY 30 days #30 tabs 10/10/21 release cane #1 ea 10/10/21 clonidine HCl 0.1 mg tablet 0.1 mg PO BID #60 tabs 10/10/21 clopidogrel 75 mg tablet 75 mg PO DAILY 30 days #30 tabs 10/10/21 insulin human U-100 NPH-regulr 45 unit (0.45 mL) subcut QAM 30 10/10/21 70-30 mix 100 unit/mL subcutaneous days #13.5 mL susp (Humulin 70/30 U-100 Insulin) insulin human U-100 NPH-regulr 50 unit (0.5 mL) subcut DAILY@1700 10/10/21 70-30 mix 100 unit/mL subcutaneous 30 days #15 mL susp (Humulin 70/30 U-100 Insulin) lisinopril 10 mg tablet 20 mg PO DAILY #60 tabs 10/10/21 oxcarbazepine 300 mg tablet 300 mg PO BEDTIME #30 tabs 10/10/21 risperidone 2 mg tablet (Risperdal) 2 mg PO BID #60 tabs 10/10/21 foam bandage 5 X 5 (Allevyn #40 ea 10/17/21 Gentle Border) doxycycline hyclate 100 mg tablet 100 mg PO BID #20 tabs 12/04/21 oxycodone 5 mg tablet 5 mg PO Q6H PRN Breakthrough Pain 12/04/21 #10 tabs Allergies Allergy/AdvReac Type Severity Reaction Status Date / Time No Known Allergies Allergy Verified 01/03/22 09:41 Review of Systems Review of Systems: Constitutional: No weight loss, fever, chills, weakness or fatigue. Skin: Positive wound to left foot Cardiovascular: No chest pain, chest pressure or chest discomfort. No palpitations or pedal edema. Respiratory: No shortness of breath, cough or sputum production. Gastrointestinal: No anorexia, nausea, vomiting or diarrhea. No abdominal pain Genitourinary: No burning micturition. No urinary frequency or incontinence. Musculoskeletal: No muscle pain, back pain, joint pain or stiffness. Psychiatric: No depression or anxiety. Yes all other systems are reviewed and are negative PMFSH Past Medical History Attestation statement: The following information was validated with the patient. Source: old records reviewed Medical History (Updated 01/09/22 @ 00:27 by Nhi Dumont CNP) Broken toe Diabetes HCV (hepatitis C virus) Hypertension Osteomyelitis PAD (peripheral artery disease) Schizoaffective disorder Family History Family History Father Diabetes mellitus Social History Social History Household Members: None and Other Household Members Other:: Friend Housing: Apartment Do you presently have visiting nurse or other home services: No Alcohol intake: never Patient Tobacco Use Status: Former Tobacco user Quit Date: 08/07/21 Advance Directives: No Advance Directives Information Provided: No service: No Current occupational status: unemployed Physical Exam Vital Signs: Vital Signs: Last Vital Signs Temp 100.4 F 01/08/22 21:10 Pulse 97 01/08/22 21:10 Resp 18 01/08/22 22:50 BP 176/78 H 01/08/22 21:10 Pulse Ox 98 01/08/22 21:10 O2 Del Method 01/08/22 21:10 BMI result Body Mass Index 34.4 Appearance: Alert.?Oriented to person, place and time. No acute distress.?Normal affect. Eyes: Pupils equal, round and reactive to light.? ENT: Pharynx normal.?? Neck: Normal inspection.? Neck supple.?? CVS: Heart sounds normal. Normal heart rate and rhythm.? Pulses normal.?? Respiratory: No respiratory distress.? Lung sounds clear to auscultation bilaterally?? Abdomen: Soft and non-tender. Normoactive bowel sounds. Skin: Skin warm and dry.? Normal skin color.? Extremities: No lower extremity edema.? No calf ttp? Neuro: Moves all extremities spontaneously. Sensation intact bilaterally. No focal neuro deficits. Ambulates with normal steady gait. Course Course Course Narrative: First contact with patient at 2109, when patient moved from the waiting room to emergency department. Patient noted to be febrile with temp of 100.4 degrees, and tachycardic at this time. Patient is a 51-year-old male with a past medical history of right foot ulcer, hepatitis-C, schizophrenia, bipolar disorder, peripheral artery disease, insulin-dependent diabetes, hypertension. Presents emergency department for evaluation of concern for infection to right toe amputation site. Patient had a nonhealing ulcer of the right 5th toe, On 11/29/2021 patient underwent angiogram of the right lower extremity with Dr. Holt, and amputation of the digit on 11/30/2021. Was treated initially with IV antibiotics to cover MRSA and was discharged [facility], last evaluated by vascular 5 days ago, at that time wound appeared to be getting smaller and improving. By family's account, patient had wound culture obtained today at wound center. Will obtain CBC to evaluate for leukocytosis/ anemia, CMP to evaluate for abnormal electrolytes /abnormal renal function/ abnormal hepatic/biliary function, blood culture, lactic acid, x-ray imaging of the right foot. Acetaminophen for fever. Patient to receive coverage with Zosyn and vancomycin given history of MRSA. Reevaluation(s) Reevaluation #1: CBC reveals a normocytic anemia consistent with baseline, no leukocytosis. CMP reveals acute kidney injury and hyponatremia with sodium of 130, which has been noted chronically, however when corrected for hyperglycemia is 138. Lactic acid is 2.3. Given hyperglycemia with glucose at 584 patient to receive insulin lispro 10 units subcutaneously. Patient without abdominal pain, nausea, vomiting, headache. XR reveals multiple osseous fragments adjacent to the osteotomy site with regular borders worrisome for osteomyelitis. Discussed case with vascular, Dr. Holt, who recommends inpatient admission to medicine service for IV antibiotics. Spoke with hospitalist, Dr. Martin, accepts patient for admission to medicine service Time: 22:30 [facility] - Wound/Laceration Medical Records Attestation: I reviewed the patient's medical records. Lab Data Attestation: I reviewed the patient's lab results. Result diagrams: 01/08/22 21:54 01/08/22 21:54 Labs: Lab Results 01/08/22 01/08/22 01/08/22 Range/Units 21:54 21:54 21:54 WBC 9.9 (4.8-10.8) X10*3/uL RBC 4.83 (4.60-5.80) X10*6/uL Hgb 12.4 L (14.0-18.0) g/dl Hct 36.9 L (42.0-52.0) % MCV 76.4 L (80.0-98.0) fL MCH 25.7 L (27.0-33.0) pg MCHC 33.6 (31.0-36.0) g/dl RDW 13.8 (11.0-16.0) % Plt Count 224 (160-400) X10*3/uL MPV 11.1 (9.4-12.4) fL Immature Gran % (Auto) 0.3 (0.0-0.4) % Neut % (Auto) 76.2 H (45-73) % Lymph % (Auto) 13.8 L (20-40) % Trego % (Auto) 8.1 (2-11) % Eos % (Auto) 1.3 (0-4) % Baso % (Auto) 0.3 (0-2) % Lymph # (Auto) 1.4 (1.2-4.9) X10*3/uL Trego # (Auto) 0.8 (0.1-1.2) X10*3/uL Eos # (Auto) 0.1 (0.0-0.4) X10*3/uL Baso # (Auto) 0.0 (0.0-0.2) X10*3/uL Abs Immat Gran (auto) 0.03 (0.00-0.03) X10*3/uL Absolute Neuts (auto) 7.5 (2.0-8.3) x10*3/uL Absolute Nucleated RBC 0.000 (0.0-0.012) X10*3/uL Nucleated RBC % (auto) 0.0 (0.0-0.2) /100WBC Sodium 130 L (135-145) mmol/L Potassium 4.6 (3.3-5.1) mmol/L Chloride 94 L (96-108) mmol/L Carbon Dioxide 25 (22-29) mmol/L Anion Gap 16 (12-20) BUN 15 (9-16) mg/dL Creatinine 1.60 H (0.5-1.4) mg/dL Estim Creat Clear Calc 68.2 Estimated GFR 46 Random Glucose 584 H* (60-115) mg/dL Lactic Acid 2.3 H* (0.5-2.0) mmol/L Calcium 9.3 D (8.4-10.2) mg/dL Magnesium 1.8 (1.6-2.6) mg/dL Total Bilirubin 0.3 (0.0-1.0) mg/dL AST 20 (5-37) U/L ALT 34 (0-40) U/L Alkaline Phosphatase 123 H D (39-117) U/L Total Protein 8.4 H (6.5-8.0) g/dL Albumin 3.9 (3.5-5.0) g/dL COVID-19 ([facility]) (Negative) COVID-19 Clin Com 01/08/22 Range/Units 21:54 WBC (4.8-10.8) X10*3/uL RBC (4.60-5.80) X10*6/uL Hgb (14.0-18.0) g/dl Hct (42.0-52.0) % MCV (80.0-98.0) fL MCH (27.0-33.0) pg MCHC (31.0-36.0) g/dl RDW (11.0-16.0) % Plt Count (160-400) X10*3/uL MPV (9.4-12.4) fL Immature Gran % (Auto) (0.0-0.4) % Neut % (Auto) (45-73) % Lymph % (Auto) (20-40) % Trego % (Auto) (2-11) % Eos % (Auto) (0-4) % Baso % (Auto) (0-2) % Lymph # (Auto) (1.2-4.9) X10*3/uL Trego # (Auto) (0.1-1.2) X10*3/uL Eos # (Auto) (0.0-0.4) X10*3/uL Baso # (Auto) (0.0-0.2) X10*3/uL Abs Immat Gran (auto) (0.00-0.03) X10*3/uL Absolute Neuts (auto) (2.0-8.3) x10*3/uL Absolute Nucleated RBC (0.0-0.012) X10*3/uL Nucleated RBC % (auto) (0.0-0.2) /100WBC Sodium (135-145) mmol/L Potassium (3.3-5.1) mmol/L Chloride (96-108) mmol/L Carbon Dioxide (22-29) mmol/L Anion Gap (12-20) BUN (9-16) mg/dL Creatinine (0.5-1.4) mg/dL Estim Creat Clear Calc Estimated GFR Random Glucose (60-115) mg/dL Lactic Acid (0.5-2.0) mmol/L Calcium (8.4-10.2) mg/dL Magnesium (1.6-2.6) mg/dL Total Bilirubin (0.0-1.0) mg/dL AST (5-37) U/L ALT (0-40) U/L Alkaline Phosphatase (39-117) U/L Total Protein (6.5-8.0) g/dL Albumin (3.5-5.0) g/dL COVID-19 ([facility]) Negative (Negative) COVID-19 Clin Com See Note Imaging Data XR foot: Radiologist's impression: XR/XR foot RT min 3V IMPRESSION: Status post partial osteotomy of the fifth toe to the level of the mid metatarsal bone. There are multiple osseous fragments adjacent to the osteotomy site with irregular borders, worrisome for osteomyelitis. Correlate clinically, and if indicated consider further evaluation with an MR. Discharge Plan Discharge Clinical Impression: Sepsis, Wound of right foot, Hyperglycemia Patient Disposition: Admitted As Inpatient
[2022-01-08] MEDS: Acetaminophen 325 MG TABLET 975 MG PO (21:31)
[2022-01-08 22:03] LABS: MANUAL DIFF FLAG NO
[2022-01-08 22:05] LABS: Basophils Percent Auto 0.3 % (0-2); Eosinophils Absolute Auto 0.1 X10*3/uL (0.0-0.4); Eosinophils Percent Auto 1.3 % (0-4); Hematocrit 36.9 % (42.0-52.0); Hemoglobin 12.4 g/dl (14.0-18.0); Imm Gran Abs Auto 0.03 X10*3/uL (0.00-0.03); Imm Gran Pct Auto 0.3 % (0.0-0.4); Lymphocytes Absolute Auto 1.4 X10*3/uL (1.2-4.9); Lymphocytes Percent Auto 13.8 % (20-40); Mean Corpuscular HGB Conc 33.6 g/dl (31.0-36.0); Mean Corpuscular Hemoglobin 25.7 pg (27.0-33.0); Mean Corpuscular Volume 76.4 fL (80.0-98.0); Mean Platelet Volume 11.1 fL (9.4-12.4); Monocytes Absolute Auto 0.8 X10*3/uL (0.1-1.2); Monocytes Percent Auto 8.1 % (2-11); Neutrophils Absolute Auto 7.5 x10*3/uL (2.0-8.3); Neutrophils Percent Auto 76.2 % (45-73); Platelet Count 224 X10*3/uL (160-400); Red Blood Count 4.83 X10*6/uL (4.60-5.80); Red Cell Distribution Width 13.8 % (11.0-16.0); White Blood Count 9.9 X10*3/uL (4.8-10.8)
[2022-01-08 22:17] LABS: Lactic Acid 2.3 mmol/L (0.5-2.0)
[2022-01-08 22:20] LABS: COVID-19 Test Negative (Negative); IDNOW Serial# 08D9AD1C
[2022-01-08 22:30] LABS: Alanine Aminotransferase 34 U/L (0-40); Albumin Level 3.9 g/dL (3.5-5.0); Alkaline Phosphatase 123 U/L (39-117); Anion Gap 16 (12-20); Aspartate Amino Transferase 20 U/L (5-37); Bilirubin Total 0.3 mg/dL (0.0-1.0); Blood Urea Nitrogen 15 mg/dL (9-16); Calcium 9.3 mg/dL (8.4-10.2); Carbon Dioxide 25 mmol/L (22-29); Chloride 94 mmol/L (96-108); Creatinine Clr Calc Pharmacy 68.2; Estimated Glomerular Filt Rate 46; Glucose Random 584 mg/dL (60-115); Magnesium 1.8 mg/dL (1.6-2.6); Potassium 4.6 mmol/L (3.3-5.1); Sodium 130 mmol/L (135-145); Total Protein 8.4 g/dL (6.5-8.0)
[2022-01-08 22:50] VITALS: RESP 18
[2022-01-08] MEDS: Piperacillin Sodium/Tazobactam 3.375 GM in 0.9 % Sodium Chloride 50 ML IV (22:50)
[2022-01-08] MEDS: Morphine Sulfate 4 MG/ML CARTRIDGE IVPUSH (22:50)
[2022-01-08] MEDS: Insulin Lispro 100 UNIT/ML 3 ML VIAL 10 UNIT SUBCUT (22:51)
[2022-01-08] MEDS: 0.9 % Sodium Chloride 1,000 ML 999 ML IV (22:52)
[2022-01-08 23:24] VITALS: BP 152/72; PULSE 86; RESP 20; O2SAT 98
--- NOTE | 2022-01-08 23:44 | P.HPHOSP_ITS ---
History of Present Illness Date of Service: 01/08/22 Chief Complaint: Right toe infection This is a 51-year-old male with a pertinent history of insulin-dependent diabetes mellitus, CAD status post right 5th toe amputation, essential hypertension, mood disorder who was sent to the ED from Wound Care for concern of amputation site infection. Patient states he noticed that the wound has been worsening for the last 5 days. It is associated with swelling, redness and purulent drainage. Patient also has been having foot pain. Culture of the purulent fluid was obtained at wound care today. Patient admits fever, denies chills, nausea, vomiting, chest discomfort, abdominal discomfort, changes in urinary or bowel habits. Patient is currently not on antibiotic. Patient was recently admitted for right 5th toe amputation by Dr. Holt about 1 month ago. In the emergency department, x-ray was concerning for osteomyelitis. Dr. Holt, vascular surgery was consulted who recommended admission with IV antibiotics Review of Systems Review of Systems: All 13 review of systems are negative except as noted in [facility] Medical History (Updated 01/08/22 @ 23:50 by Baljeet Martin MD) Broken toe Diabetes HCV (hepatitis C virus) Hypertension Osteomyelitis PAD (peripheral artery disease) Schizoaffective disorder Family History Father Diabetes mellitus Social History Household Members: None and Other Household Members Other:: Friend Housing: Apartment Do you presently have visiting nurse or other home services: No Alcohol intake: never Patient Tobacco Use Status: Former Tobacco user Quit Date: 08/07/21 Advance Directives: No Advance Directives Information Provided: No service: No Current occupational status: unemployed Meds Allergies Allergy/AdvReac Type Severity Reaction Status Date / Time No Known Allergies Allergy Verified 01/03/22 09:41 Active Medications: Current Medications Acetaminophen (Acetaminophen 325 Mg Tablet) 650 mg PO Q6H PRN PRN Reason: Pain, Mild (Pain Scale 1-3) Dextrose (Dextrose 50 % 25 Gm/50 Ml Syringe) 25 gm IVPUSH Q15M PRN; Protocol PRN Reason: per Hypoglycemia Standing Ord. Glucose (Glucose Gel 15 Gm Gel..Gram.) 15 gm PO Q15M PRN; Protocol PRN Reason: per Hypoglycemia Standing Ord. Insulin Human Lispro (Insulin Lispro 100 Unit/Ml 3 Ml Vial) 0 unit SUBCUT Q6H COUNT INCLUDES THE [facility]; Protocol Stop: 01/09/22 22:53 Melatonin (Melatonin 3 Mg Tablet) 6 mg PO BEDTIME PRN PRN Reason: Insomnia Ondansetron HCl (Ondansetron Hcl 4 Mg/2 Ml Vial) 4 mg IVPUSH Q8H PRN PRN Reason: Nausea and Vomiting Pharmacy Consult (Consult Rx Vancomycin Dosing) 1 each MISCELLANE DAILY PRN PRN Reason: Consult order Pharmacy Consult (Consult Rx Perform Med Rec) 1 each MISCELLANE ONCE PRN PRN Reason: Consult order Sodium Chloride (0.9 % Sodium Chloride Flush 3 Ml Syringe) 3 ml IVFLUSH QSHIFT COUNT INCLUDES THE [facility] Physical Exam Vital Signs and Narrative: Vital Signs: Last Vital Signs Temp 100.4 F 01/08/22 21:10 Pulse 97 01/08/22 21:10 Resp 18 01/08/22 22:50 BP 176/78 H 01/08/22 21:10 Pulse Ox 98 01/08/22 21:10 O2 Del Method 01/08/22 21:10 BMI result Body Mass Index 34.4 Middle-aged male lying in bed in no distress Neck supple, no JVD Tachycardic with regular rhythm, S1-S2 heard Regular breath sounds bilaterally, no wheezing or crackles appreciated Abdomen soft nontender, no guarding, no rigidity Patient is awake, alert and oriented to self, place, time and person ; no focal motor deficit Extremity: Right 5th toe amputation with adjacent site with serosanguineous drainage Psych: Normal mood No pedal edema Results Labs CBC and Chem 7: 01/08/22 21:54 01/08/22 21:54 Labs: Laboratory Results - last 24 hr 01/08/22 01/08/22 01/08/22 21:54 21:54 21:54 MCV 76.4 L MCH 25.7 L MCHC 33.6 RDW 13.8 Plt Count 224 MPV 11.1 Immature Gran % (Auto) 0.3 Neut % (Auto) 76.2 H Lymph % (Auto) 13.8 L Branch % (Auto) 8.1 Eos % (Auto) 1.3 Baso % (Auto) 0.3 Lymph # (Auto) 1.4 Branch # (Auto) 0.8 Eos # (Auto) 0.1 Baso # (Auto) 0.0 Abs Immat Gran (auto) 0.03 Absolute Neuts (auto) 7.5 Absolute Nucleated RBC 0.000 Nucleated RBC % (auto) 0.0 Anion Gap 16 Estim Creat Clear Calc 68.2 Estimated GFR 46 Random Glucose 584 H* Lactic Acid 2.3 H* Calcium 9.3 D Magnesium 1.8 Total Bilirubin 0.3 AST 20 ALT 34 Alkaline Phosphatase 123 H D Total Protein 8.4 H Albumin 3.9 COVID-19 ([facility]) COVID-19 Clin Com 01/08/22 21:54 MCV MCH MCHC RDW Plt Count MPV Immature Gran % (Auto) Neut % (Auto) Lymph % (Auto) Branch % (Auto) Eos % (Auto) Baso % (Auto) Lymph # (Auto) Branch # (Auto) Eos # (Auto) Baso # (Auto) Abs Immat Gran (auto) Absolute Neuts (auto) Absolute Nucleated RBC Nucleated RBC % (auto) Anion Gap Estim Creat Clear Calc Estimated GFR Random Glucose Lactic Acid Calcium Magnesium Total Bilirubin AST ALT Alkaline Phosphatase Total Protein Albumin COVID-19 ([facility]) Negative COVID-19 Clin Com See Note Imaging Radiologist's Impressions: Impressions Foot X-Ray 01/08/22 21:45 IMPRESSION: Status post partial osteotomy of the fifth toe to the level of the mid metatarsal bone. There are multiple osseous fragments adjacent to the osteotomy site with irregular borders, worrisome for osteomyelitis. Correlate clinically, and if indicated consider further evaluation with an MR. Assessment and Plan (1) Osteomyelitis: Status: Acute (2) Wound of right foot: Status: Acute (3) Hyperglycemia: Status: Acute (4) Schizophrenia: Status: Acute (5) PAD (peripheral artery disease): Status: Acute (6) Hypertension: Status: Acute (7) Diabetes: Status: Acute Plan This is a 51-year-old male with a pertinent history of insulin-dependent diabetes mellitus, CAD status post right 5th toe amputation 1 month ago, essential hypertension, mood disorder who was sent to the ED from Wound Care for concern of amputation site infection. #. Sepsis due to right 5th toe osteomyelitis -will admit patient and initiate broad-spectrum empiric antibiotics, vancomycin and cefepime. Blood cultures obtained in the ER. Vascular surgery, Dr. Yanet consulted for possible amputation. Resuscitated with IV crystalloids. Will keep NPO after midnight for surgical evaluation #. Insulin-dependent diabetes mellitus with uncontrolled hyperglycemia -received IV insulin and fluid resuscitation in the ER. Reduce basal insulin as patient is NPO. Initiate Accu-Cheks with sliding scale insulin every 6 hours. #. Acute kidney injury, prerenal stage I, nonoliguric -due to sepsis. Monitor creatinine with fluid resuscitation #. Essential hypertension -hold lisinopril due to OBEY. Restart antihypertensives as appropriate #. Mood disorder -Continue home po medications #. Peripheral arterial disease -on aspirin and Plavix. Will hold until surgical evaluation DVT prophylaxis: Hold Lovenox until surgical evaluation Diet: Diabetic diet. NPO after midnight for surgical evaluation Full code Patient will require two night minimum hospital stay for need for IV antibiotics and evaluation by vascular surgery for possible amputation Quality Stroke Does the patient have a stroke diagnosis?: No VTE Prior VTE?: No VTE Risk Level:: Medical - moderate - high VTE Device Contraindication: Treatment Not Indicated VTE Drug Contraindication: Treatment Not Indicated
[2022-01-09 00:01] LABS: Reflex Lactate? Lactic Acid Added
[2022-01-09] MEDS: 0.9 % Sodium Chloride Flush 3 ML SYRINGE IVFLUSH ×3 (00:06→16:22)
[2022-01-09 00:20] LABS: Glucose, Whole Blood 382 mg/dL (60-115)
[2022-01-09] MEDS: OXcarbazepine 300 MG TABLET PO ×2 (00:22→22:48)
[2022-01-09] MEDS: Insulin Glargine,Hum.rec.anlog 100 UNIT/ML 10 ML VIAL 35 UNIT SUBCUT ×2 (00:22→12:28)
[2022-01-09] MEDS: risperiDONE 2 MG TABLET PO ×2 (00:22→22:48)
[2022-01-09] MEDS: Insulin Regular, Human 100 UNIT/ML 3 ML VIAL 10 UNIT IVPUSH ×2 (00:26→22:57)
[2022-01-09 00:36] LABS: ~Lactic Acid-LAB USE ONLY 1.5 mmol/L (0.5-2.0)
[2022-01-09] MEDS: cefEPime HCl 2 GM in 0.9 % Sodium Chloride 50 ML IV ×3 (01:08→16:22)
[2022-01-09] MEDS: 0.9 % Sodium Chloride 250 ML 999 ML IV (01:09)
[2022-01-09 03:29] VITALS: BP 146/69; PULSE 83; RESP 18; O2SAT 97
[2022-01-09 05:18] LABS: Estimated Average Glucose 352 mg/dL; Hemoglobin A1c % 13.9 %
[2022-01-09 06:41] LABS: Glucose, Whole Blood 194 mg/dL (60-115)
[2022-01-09 07:05] LABS: MANUAL DIFF FLAG NO
[2022-01-09 07:09] LABS: Basophils Percent Auto 0.4 % (0-2); Hematocrit 31.7 % (42.0-52.0); Hemoglobin 10.9 g/dl (14.0-18.0); Imm Gran Pct Auto 0.7 % (0.0-0.4); Lymphocytes Percent Auto 12.5 % (20-40); Mean Corpuscular HGB Conc 34.4 g/dl (31.0-36.0); Mean Corpuscular Hemoglobin 26.6 pg (27.0-33.0); Mean Corpuscular Volume 77.3 fL (80.0-98.0); Mean Platelet Volume 11.2 fL (9.4-12.4); Monocytes Percent Auto 8.9 % (2-11); Neutrophils Percent Auto 75.5 % (45-73); Platelet Count 174 X10*3/uL (160-400); Red Cell Distribution Width 13.7 % (11.0-16.0)
[2022-01-09 07:10] LABS: Eosinophils Absolute Auto 0.1 X10*3/uL (0.0-0.4); Imm Gran Abs Auto 0.05 X10*3/uL (0.00-0.03); Lymphocytes Absolute Auto 0.9 X10*3/uL (1.2-4.9); Monocytes Absolute Auto 0.6 X10*3/uL (0.1-1.2); Neutrophils Absolute Auto 5.3 x10*3/uL (2.0-8.3)
[2022-01-09 07:25] LABS: Anion Gap 15 (12-20); Blood Urea Nitrogen 12 mg/dL (9-16); Calcium 8.7 mg/dL (8.4-10.2); Carbon Dioxide 24 mmol/L (22-29); Chloride 100 mmol/L (96-108); Estimated Glomerular Filt Rate > 60; Glucose Random 193 mg/dL (60-115); Potassium 3.8 mmol/L (3.3-5.1); Sodium 135 mmol/L (135-145)
[2022-01-09 07:42] LABS: Glucose, Whole Blood 189 mg/dL (60-115)
[2022-01-09 08:00] VITALS: BP 180/71; PULSE 87; RESP 20; TEMP 37.2; O2SAT 99
--- NOTE | 2022-01-09 08:37 | PHA.MEDREC ---
Pharmacy Consult ? Medication Reconciliation Pharmacy has completed the medication reconciliation. Via director of testing patient was unable to give medication list but states sister in law takes care of at home meds. Confirmed with her over phone and against prior discharge from 12/04/21 because she states that he stopped pain meds but otherwise all medications are the same.
--- NOTE | 2022-01-09 09:47 | PHA.PROG ---
Admission Date/Time: January 08, 2022 23:24 Indication: BONE AND JOINT Weight in k.862 kg Adjusted body weight in K.345 KG [place] body weight in Kg: Obesity Dosing Indication % IBW: Serum Creatinine - Last 168 Hours 01/08/22 01/09/22 21:54 06:42 Creatinine 1.60 H 1.07 Estimated CrCl and GFR - Last 168 Hours 01/08/22 01/09/22 21:54 06:42 Estim Creat Clear Calc 68.2 102.0 Estimated GFR 46 > 60 Vancomycin Loading Dose: 2000 MG Current Vancomycin Dosing Regimen: 1000MG Q12H Vancomycin Monitoring using AUC goal of 400 - 600 range with trough as surrogate marker: AUC 525; TROUGH 15.4 Date and Time for next Vancomycin Level to be drawn: 01/10@0900 Pharmacist Comments on Vancomycin Plan: Vancomycin dosing will take advantage of [employer] as a clinical decision support tool that uses Bayesian modeling to calculate individual patient's pharmacokinetic parameters and forecast the patient's drug concentration time course with the target goal AUC 24 range of 400 - 600 mg/L/hr.
--- NOTE | 2022-01-09 10:01 | MHC.CM.PN ---
WITH ASSIST OF STORAGE SOLUTIONS ARCHITECT: PATIENT LIVES WITH FAMILY. 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 ALTHOUGH HE DC LAST VISIT WITH NO VNA, HE STATES THAT AN RN DOES VISIT HIS HOME TWICE WEEKLY FOR WOUND ASSESSMENT AND CARE. HE STATES THAT HE HAS NOT SEEN A PCP SINCE LAST VISIT. REFERRAL TO BE PLACED TO [facility] IN THE EVENT THAT THEY CAN OFFER SERVICES.
[2022-01-09 11:26] LABS: Glucose, Whole Blood 230 mg/dL (60-115)
--- NOTE | 2022-01-09 12:20 | PM.CNGS ---
History of Present Illness Consult details Consult date: 01/09/22 Reason for consult: wound care Narrative: 51-year-old gentleman well known to me who has a prior history of a right rate amputation of the 5th toe on 11/30/2021. He had been doing relatively well. The wound had been open. He had been seen by the [facility] yesterday. There was purulent material expressed from the wound site. He was subsequently admitted to the hospital for evaluation and treatment. He now presents to us for vascular follow-up. Review of Systems Review of Systems: Yes all other systems are reviewed and are negative Constitutional: Constitutional: Reports no additional constitutional complaints ENT: Reports Normal hearing present Cardiovascular: Cardiovascular: Denies chest pain, Denies chest pain at rest, Denies chest pain with activity and Denies pedal edema Respiratory: Respiratory: Denies cough Gastrointestinal: Gastrointestinal: Denies abdominal pain Musculoskeletal: Musculoskeletal: Denies abnormal gait, Denies muscle cramps and Denies radiating pain into limb Integumentary/Breasts: Skin/Breast: Denies skin ulcer and Denies wounds Neurologic: Reports Normal hearing present and Denies abnormal gait Psychiatric: Psychiatric: Reports no additional psychiatric complaints [facility] Past Medical History Medical History (Updated 01/09/22 @ 00:27 by Nhi Dumont CNP) Broken toe Diabetes HCV (hepatitis C virus) Hypertension Osteomyelitis PAD (peripheral artery disease) Schizoaffective disorder Family History Family History Father Diabetes mellitus Social History Social History Household Members: None and Other Household Members Other:: Friend Housing: Apartment Do you presently have visiting nurse or other home services: No Alcohol intake: never Patient Tobacco Use Status: Former Tobacco user Quit Date: 08/07/21 Advance Directives: No Advance Directives Information Provided: No service: No Current occupational status: unemployed Meds Allergies Allergy/AdvReac Type Severity Reaction Status Date / Time No Known Allergies Allergy Verified 01/03/22 09:41 Active Medications: Current Medications Acetaminophen (Acetaminophen 325 Mg Tablet) 650 mg PO Q6H PRN PRN Reason: Pain, Mild (Pain Scale 1-3) Amlodipine Besylate (Amlodipine Besylate 5 Mg Tablet) 5 mg PO DAILY [facility]; Protocol Aspirin (Aspirin Enteric Coated 81 Mg Tablet.Dr) 81 mg PO DAILY [facility] Clonidine HCl (Clonidine Hcl 0.1 Mg Tablet) 0.1 mg PO BID [facility]; Protocol Clopidogrel Bisulfate (Clopidogrel Bisulfate 75 Mg Tablet) 75 mg PO DAILY [facility] Dextrose (Dextrose 50 % 25 Gm/50 Ml Syringe) 25 gm IVPUSH Q15M PRN; Protocol PRN Reason: per Hypoglycemia Standing Ord. Glucose (Glucose Gel 15 Gm Gel..Gram.) 15 gm PO Q15M PRN; Protocol PRN Reason: per Hypoglycemia Standing Ord. Cefepime HCl 2 gm/ Sodium (Chloride) 50 mls @ 100 mls/hr IV Q8H [facility] Last Admin: 01/09/22 10:00 Dose: 100 mls/hr Vancomycin HCl 1,000 mg/ (Sodium Chloride) 270 mls @ 270 mls/hr IV Q12H [facility] Insulin Glargine (Insulin Glargine,Hum.Rec.Anlog 100 Unit/Ml 10 Ml Vial) 35 unit SUBCUT DAILY [facility] Last Admin: 01/09/22 00:22 Dose: 35 unit Insulin Human Lispro (Insulin Lispro 100 Unit/Ml 3 Ml Vial) 0 unit SUBCUT Q6H [facility]; Protocol Stop: 01/09/22 22:53 Last Admin: 01/09/22 05:47 Dose: Not Given Melatonin (Melatonin 3 Mg Tablet) 6 mg PO BEDTIME PRN PRN Reason: Insomnia Morphine Sulfate (Morphine Sulfate 2 Mg/Ml Cartridge) 2 mg IVPUSH Q4H PRN; Protocol PRN Reason: Pain, Severe (Pain Scale 7-10) Ondansetron HCl (Ondansetron Hcl 4 Mg/2 Ml Vial) 4 mg IVPUSH Q8H PRN PRN Reason: Nausea and Vomiting Oxcarbazepine (Oxcarbazepine 300 Mg Tablet) 300 mg PO BEDTIME [facility] Last Admin: 01/09/22 00:22 Dose: 300 mg Pharmacy Consult (Consult Rx Vancomycin Dosing) 1 each MISCELLANE DAILY PRN PRN Reason: Consult order Pharmacy Consult (Consult Rx Perform Med Rec) 1 each MISCELLANE ONCE PRN PRN Reason: Consult order Pharmacy Consult (Consult Rx Vancomycin Dosing) 1 each MISCELLANE DAILY PRN PRN Reason: Consult order Risperidone (Risperidone 2 Mg Tablet) 2 mg PO BID [facility] Last Admin: 01/09/22 10:01 Dose: Not Given Sodium Chloride (0.9 % Sodium Chloride Flush 3 Ml Syringe) 3 ml IVFLUSH QSHIFT [facility] Last Admin: 01/09/22 10:01 Dose: 3 ml Home Medications Medication Instructions Recorded Confirmed Last Taken Type doxycycline hyclate 100 mg tablet 1 tab PO BID 01/09/22 01/09/22 01/08/22 History insulin human U-100 NPH-regulr 50 unit subcut QPM 01/09/22 01/09/22 01/08/22 History 70-30 mix 100 unit/mL subcutaneous susp (Humulin 70/30 U-100 Insulin) Physical Exam Vital Signs: Vital Signs: Last Vital Signs Temp 98.9 F 01/09/22 08:00 Pulse 87 01/09/22 08:00 Resp 20 01/09/22 08:00 BP 180/71 H 01/09/22 08:00 Pulse Ox 99 01/09/22 08:00 O2 Del Method 01/09/22 08:00 BMI result Body Mass Index 34.4 Const: General: cooperative, healthy appearing and comfortable Orientation/consciousness: oriented to person, oriented to place and oriented to time HEENT: Head: Yes normal to inspection Neck: Neck: Yes normal visual inspection Carotids: no bruits Chest: Chest palpation & inspection: normal inspection of the chest Resp: Effort & Inspection: normal respiratory effort and able to speak in complete sentences Auscultation: clear to auscultation bilaterally, no crackles, no rales, no rhonchi and no wheezes Cardio: Rate: regular rate Rhythm: regular rhythm Heart sounds: S1 normal heart sound present and S2 normal heart sound present Bruits: no carotid bruits Peripheral pulses: Peripheral pulses 2+ throughout GI: Inspection: Yes normal to inspection Skin: Wounds: wounds noted (Right 5th toe amputation site wound clean) Hair: normal Neuro: General: oriented to person, oriented to place and oriented to time Cranial nerves: Yes CN's II-XII intact bilaterally and Yes Normal hearing present Cognition (Neuro): normal cognition Motor exam (neuro): 5/5 motor strength present throughout Extrem: Other: venous exam: No significant superficial varicosities or spider telangiectasias, minimal edema General: No clubbing, No cyanosis and No edema Psych: Appearance: grossly normal Mental Status: mental status grossly normal Speech and movement: Normal speech and movement present Results Labs Result diagrams: 01/09/22 06:42 01/09/22 06:42 Labs: Abnormal lab results 01/08/22 01/08/22 01/08/22 Range/Units 21:54 21:54 21:54 RBC (4.60-5.80) X10*6/uL Hgb 12.4 L (14.0-18.0) g/dl Hct 36.9 L (42.0-52.0) % MCV 76.4 L (80.0-98.0) fL MCH 25.7 L (27.0-33.0) pg Immature Gran % (Auto) (0.0-0.4) % Neut % (Auto) 76.2 H (45-73) % Lymph % (Auto) 13.8 L (20-40) % Lymph # (Auto) (1.2-4.9) X10*3/uL Abs Immat Gran (auto) (0.00-0.03) X10*3/uL Sodium 130 L (135-145) mmol/L Chloride 94 L (96-108) mmol/L Creatinine 1.60 H (0.5-1.4) mg/dL POC Glucose (60-115) mg/dL Random Glucose 584 H* (60-115) mg/dL Lactic Acid 2.3 H* (0.5-2.0) mmol/L Alkaline Phosphatase 123 H D (39-117) U/L Total Protein 8.4 H (6.5-8.0) g/dL 01/09/22 01/09/22 01/09/22 Range/Units 00:15 06:30 06:42 RBC 4.10 L (4.60-5.80) X10*6/uL Hgb 10.9 L (14.0-18.0) g/dl Hct 31.7 L (42.0-52.0) % MCV 77.3 L (80.0-98.0) fL MCH 26.6 L (27.0-33.0) pg Immature Gran % (Auto) 0.7 H (0.0-0.4) % Neut % (Auto) 75.5 H (45-73) % Lymph % (Auto) 12.5 L (20-40) % Lymph # (Auto) 0.9 L (1.2-4.9) X10*3/uL Abs Immat Gran (auto) 0.05 H (0.00-0.03) X10*3/uL Sodium (135-145) mmol/L Chloride (96-108) mmol/L Creatinine (0.5-1.4) mg/dL POC Glucose 382 H* 194 H (60-115) mg/dL Random Glucose (60-115) mg/dL Lactic Acid (0.5-2.0) mmol/L Alkaline Phosphatase (39-117) U/L Total Protein (6.5-8.0) g/dL 01/09/22 01/09/22 01/09/22 Range/Units 06:42 07:29 11:14 RBC (4.60-5.80) X10*6/uL Hgb (14.0-18.0) g/dl Hct (42.0-52.0) % MCV (80.0-98.0) fL MCH (27.0-33.0) pg Immature Gran % (Auto) (0.0-0.4) % Neut % (Auto) (45-73) % Lymph % (Auto) (20-40) % Lymph # (Auto) (1.2-4.9) X10*3/uL Abs Immat Gran (auto) (0.00-0.03) X10*3/uL Sodium (135-145) mmol/L Chloride (96-108) mmol/L Creatinine (0.5-1.4) mg/dL POC Glucose 189 H 230 H (60-115) mg/dL Random Glucose 193 H D (60-115) mg/dL Lactic Acid (0.5-2.0) mmol/L Alkaline Phosphatase (39-117) U/L Total Protein (6.5-8.0) g/dL Short CBC 01/08/22 01/09/22 Range/Units 21:54 06:42 WBC 9.9 7.0 (4.8-10.8) X10*3/uL Hgb 12.4 L 10.9 L (14.0-18.0) g/dl Hct 36.9 L 31.7 L (42.0-52.0) % Plt Count 224 174 (160-400) X10*3/uL BMP 01/08/22 01/09/22 21:54 06:42 Sodium 130 L 135 Potassium 4.6 3.8 Chloride 94 L 100 Carbon Dioxide 25 24 BUN 15 12 Creatinine 1.60 H 1.07 Calcium 9.3 D 8.7 D Liver Function 01/08/22 Range/Units 21:54 Total Bilirubin 0.3 (0.0-1.0) mg/dL AST 20 (5-37) U/L ALT 34 (0-40) U/L Alkaline Phosphatase 123 H D (39-117) U/L Albumin 3.9 (3.5-5.0) g/dL All other labs normal. Assessment and Plan (1) Wound of right foot: Status: Acute In short patient has a nonhealing right foot amputation site. There is continued underlying infection. Will need IV antibiotic therapy. This was cleaned and expressed at bedside. And the wound was packed. We will follow up with you. Thank you for allowing us to participate in his care. If there are any questions or concerns please do not hesitate to contact us. (2) PAD (peripheral artery disease): Status: Acute Procedures Date of Service Date of Service: 01/09/22
[2022-01-09] MEDS: Insulin Lispro 100 UNIT/ML 3 ML VIAL SUBCUT ×2 (12:28→18:21)
[2022-01-09] MEDS: vancomycin HCL 1,000 MG in 0.9 % Sodium Chloride 250 ML 270 MG IV ×2 (14:30→22:55)
--- NOTE | 2022-01-09 15:45 | HO.PM.IMPN ---
Subjective Subjective Date of Service: 01/09/22 Interval History: cc: amp site abscess interval history:no complaints ENT Ears, Nose, Mouth, and Throat: Reports Normal hearing present Cardiovascular Cardiovascular: Reports no additional cardiovascular complaints Respiratory Respiratory: Reports no additional respiratory complaints Neurologic Neurologic: Reports Normal hearing present Physical Exam Vital Signs: Vital Signs: Last Vital Signs Temp 98.9 F 01/09/22 08:00 Pulse 87 01/09/22 08:00 Resp 20 01/09/22 08:00 BP 180/71 H 01/09/22 08:00 Pulse Ox 99 01/09/22 08:00 O2 Del Method 01/09/22 08:00 BMI result Body Mass Index 34.4 Const: General: cooperative, healthy appearing and comfortable Orientation/consciousness: oriented to person, oriented to place and oriented to time HEENT: Head: Yes normal to inspection Neck: Neck: Yes normal visual inspection Carotids: no bruits Chest: Chest palpation & inspection: normal inspection of the chest Resp: Effort & Inspection: normal respiratory effort and able to speak in complete sentences Auscultation: clear to auscultation bilaterally, no crackles, no rales, no rhonchi and no wheezes Cardio: Rate: regular rate Rhythm: regular rhythm Heart sounds: S1 normal heart sound present and S2 normal heart sound present Bruits: no carotid bruits Peripheral pulses: Peripheral pulses 2+ throughout GI: Inspection: Yes normal to inspection Skin: Wounds: wounds noted (Right 5th toe amputation site wound clean) Hair: normal Neuro: General: oriented to person, oriented to place and oriented to time Cranial nerves: Yes CN's II-XII intact bilaterally and Yes Normal hearing present Cognition (Neuro): normal cognition Motor exam (neuro): 5/5 motor strength present throughout Extrem: Other: venous exam: No significant superficial varicosities or spider telangiectasias, minimal edema General: No clubbing, No cyanosis and No edema Psych: Appearance: grossly normal Mental Status: mental status grossly normal Speech and movement: Normal speech and movement present Objective Data Active Medications Acetaminophen (Acetaminophen 325 Mg Tablet) 650 mg PO Q6H PRN PRN Reason: Pain, Mild (Pain Scale 1-3) Amlodipine Besylate (Amlodipine Besylate 5 Mg Tablet) 5 mg PO DAILY [facility]; Protocol Aspirin (Aspirin Enteric Coated 81 Mg Tablet.Dr) 81 mg PO DAILY [facility] Clonidine HCl (Clonidine Hcl 0.1 Mg Tablet) 0.1 mg PO BID [facility]; Protocol Clopidogrel Bisulfate (Clopidogrel Bisulfate 75 Mg Tablet) 75 mg PO DAILY [facility] Dextrose (Dextrose 50 % 25 Gm/50 Ml Syringe) 25 gm IVPUSH Q15M PRN; Protocol PRN Reason: per Hypoglycemia Standing Ord. Glucose (Glucose Gel 15 Gm Gel..Gram.) 15 gm PO Q15M PRN; Protocol PRN Reason: per Hypoglycemia Standing Ord. Cefepime HCl 2 gm/ Sodium (Chloride) 50 mls @ 100 mls/hr IV Q8H [facility] Last Infusion: 01/09/22 14:41 Dose: 100 mls/hr Documented By: AIDEE Vancomycin HCl 1,000 mg/ (Sodium Chloride) 270 mls @ 270 mls/hr IV Q12H [facility] Last Admin: 01/09/22 14:30 Dose: 270 mls/hr Documented By: AIDEE Insulin Glargine (Insulin Glargine,Hum.Rec.Anlog 100 Unit/Ml 10 Ml Vial) 35 unit SUBCUT DAILY [facility] Last Admin: 01/09/22 12:28 Dose: 35 unit Documented By: AIDEE Insulin Human Lispro (Insulin Lispro 100 Unit/Ml 3 Ml Vial) 0 unit SUBCUT Q6H [facility]; Protocol Stop: 01/09/22 22:53 Last Admin: 01/09/22 12:28 Dose: 2 unit Documented By: AIDEE Melatonin (Melatonin 3 Mg Tablet) 6 mg PO BEDTIME PRN PRN Reason: Insomnia Morphine Sulfate (Morphine Sulfate 2 Mg/Ml Cartridge) 2 mg IVPUSH Q4H PRN; Protocol PRN Reason: Pain, Severe (Pain Scale 7-10) Ondansetron HCl (Ondansetron Hcl 4 Mg/2 Ml Vial) 4 mg IVPUSH Q8H PRN PRN Reason: Nausea and Vomiting Oxcarbazepine (Oxcarbazepine 300 Mg Tablet) 300 mg PO BEDTIME [facility] Last Admin: 01/09/22 00:22 Dose: 300 mg Documented By: SABINE Pharmacy Consult (Consult Rx Vancomycin Dosing) 1 each MISCELLANE DAILY PRN PRN Reason: Consult order Pharmacy Consult (Consult Rx Perform Med Rec) 1 each MISCELLANE ONCE PRN PRN Reason: Consult order Pharmacy Consult (Consult Rx Vancomycin Dosing) 1 each MISCELLANE DAILY PRN PRN Reason: Consult order Risperidone (Risperidone 2 Mg Tablet) 2 mg PO BID [facility] Last Admin: 01/09/22 10:01 Dose: Not Given Documented By: AIDEE Non-Admin Reason: NPO Sodium Chloride (0.9 % Sodium Chloride Flush 3 Ml Syringe) 3 ml IVFLUSH QSHIFT [facility] Last Admin: 01/09/22 10:01 Dose: 3 ml Documented By: AIDEE Labs CBC & Chem 7: 01/09/22 06:42 01/09/22 06:42 Labs: Laboratory Results - last 24 hr 01/08/22 01/08/22 01/08/22 21:54 21:54 21:54 MCV 76.4 L MCH 25.7 L MCHC 33.6 RDW 13.8 Plt Count 224 MPV 11.1 Immature Gran % (Auto) 0.3 Neut % (Auto) 76.2 H Lymph % (Auto) 13.8 L Dodge % (Auto) 8.1 Eos % (Auto) 1.3 Baso % (Auto) 0.3 Lymph # (Auto) 1.4 Dodge # (Auto) 0.8 Eos # (Auto) 0.1 Baso # (Auto) 0.0 Abs Immat Gran (auto) 0.03 Absolute Neuts (auto) 7.5 Absolute Nucleated RBC 0.000 Nucleated RBC % (auto) 0.0 Anion Gap 16 Estim Creat Clear Calc 68.2 Estimated GFR 46 POC Glucose Random Glucose 584 H* Estimat Average Glucose Hemoglobin A1c % Lactic Acid 2.3 H* Lactic Acid F/U @ 2Hr Calcium 9.3 D Magnesium 1.8 Total Bilirubin 0.3 AST 20 ALT 34 Alkaline Phosphatase 123 H D Total Protein 8.4 H Albumin 3.9 COVID-19 ([facility]) COVID-19 Clin Com 01/08/22 01/09/22 01/09/22 21:54 00:15 00:15 MCV MCH MCHC RDW Plt Count MPV Immature Gran % (Auto) Neut % (Auto) Lymph % (Auto) Dodge % (Auto) Eos % (Auto) Baso % (Auto) Lymph # (Auto) Dodge # (Auto) Eos # (Auto) Baso # (Auto) Abs Immat Gran (auto) Absolute Neuts (auto) Absolute Nucleated RBC Nucleated RBC % (auto) Anion Gap Estim Creat Clear Calc Estimated GFR POC Glucose Random Glucose Estimat Average Glucose 352 Hemoglobin A1c % 13.9 Lactic Acid Lactic Acid F/U @ 2Hr 1.5 Calcium Magnesium Total Bilirubin AST ALT Alkaline Phosphatase Total Protein Albumin COVID-19 ([facility]) Negative COVID-19 Misoca Com See Note 01/09/22 01/09/22 01/09/22 00:15 06:30 06:42 MCV 77.3 L MCH 26.6 L MCHC 34.4 RDW 13.7 Plt Count 174 MPV 11.2 Immature Gran % (Auto) 0.7 H Neut % (Auto) 75.5 H Lymph % (Auto) 12.5 L Dodge % (Auto) 8.9 Eos % (Auto) 2.0 Baso % (Auto) 0.4 Lymph # (Auto) 0.9 L Dodge # (Auto) 0.6 Eos # (Auto) 0.1 Baso # (Auto) 0.0 Abs Immat Gran (auto) 0.05 H Absolute Neuts (auto) 5.3 Absolute Nucleated RBC 0.000 Nucleated RBC % (auto) 0.0 Anion Gap Estim Creat Clear Calc Estimated GFR POC Glucose 382 H* 194 H Random Glucose Estimat Average Glucose Hemoglobin A1c % Lactic Acid Lactic Acid F/U @ 2Hr Calcium Magnesium Total Bilirubin AST ALT Alkaline Phosphatase Total Protein Albumin COVID-19 ([facility]) [email or web address] 01/09/22 01/09/22 01/09/22 06:42 07:29 11:14 MCV MCH MCHC RDW Plt Count MPV Immature Gran % (Auto) Neut % (Auto) Lymph % (Auto) Dodge % (Auto) Eos % (Auto) Baso % (Auto) Lymph # (Auto) Dodge # (Auto) Eos # (Auto) Baso # (Auto) Abs Immat Gran (auto) Absolute Neuts (auto) Absolute Nucleated RBC Nucleated RBC % (auto) Anion Gap 15 Estim Creat Clear Calc 102.0 Estimated GFR > 60 POC Glucose 189 H 230 H Random Glucose 193 H D Estimat Average Glucose Hemoglobin A1c % Lactic Acid Lactic Acid F/U @ 2Hr Calcium 8.7 D Magnesium Total Bilirubin AST ALT Alkaline Phosphatase Total Protein Albumin COVID-19 ([facility]) [employer] Com Microbiology Microbiology Results: Microbiology 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, essential hypertension, mood disorder who was sent to the ED from [facility] for concern of amputation site infection sepsis due to right 5th toe OM complicated by GM+ bacteremia vanc, cefepime ID eval vascular following follow up cultures DM with hyperglycemia insulin OBEY resolved htn amldoipine clonidine hold lisinopirl for obey mood discorder risperdal PVD dapl dvt prophylaxis - lovenox full code reason for continued hospitalization:bacteremia, awaiting clearance Quality Stroke Does the patient have a stroke diagnosis?: No VTE Prior VTE?: No VTE Risk Level:: Medical - moderate - high VTE Device Contraindication: Treatment Not Indicated VTE Drug Contraindication: Treatment Not Indicated
[2022-01-09 16:00] VITALS: BP 164/87; PULSE 96; RESP 17; TEMP 37.1; O2SAT 98
--- NOTE | 2022-01-09 16:16 | PC.NURSE ---
ASSUMED CARE OF PT AT 1500 ,VITALS AND BS TAKEN ,PT WATCHING TELEVISION IN BED .
[2022-01-09] MEDS: Morphine Sulfate 2 MG/ML CARTRIDGE IVPUSH (16:22)
[2022-01-09] MEDS: Acetaminophen 325 MG TABLET 650 MG PO (16:27)
[2022-01-09 16:32] LABS: Glucose, Whole Blood 404 mg/dL (60-115)
--- NOTE | 2022-01-09 18:22 | PC.NURSE ---
MACARIO Osman MD notified, no change to insulin protocol per provider.
[2022-01-09 20:20] VITALS: BP 165/77; PULSE 107; RESP 16; TEMP 36.3; O2SAT 95
[2022-01-09 22:03] LABS: Glucose, Whole Blood 440 mg/dL (60-115)
[2022-01-09] MEDS: cloNIDine HCL 0.1 MG TABLET PO (22:48)
[2022-01-10] VITALS (7 sets, daily range): BP systolic 134–154; BP diastolic 66–85; PULSE 81–98; RESP 16–18; TEMP 36.1–37.2; O2SAT 95–98; BMI 34.1
[2022-01-10 00:19] LABS: Glucose, Whole Blood 279 mg/dL (60-115)
[2022-01-10] MEDS: Melatonin 3 MG TABLET 6 MG PO ×2 (00:25→21:13)
[2022-01-10] MEDS: cefEPime HCl 2 GM in 0.9 % Sodium Chloride 50 ML IV ×3 (00:25→16:15)
[2022-01-10] MEDS: Morphine Sulfate 2 MG/ML CARTRIDGE IVPUSH ×3 (00:25→21:17)
[2022-01-10] MEDS: 0.9 % Sodium Chloride Flush 3 ML SYRINGE IVFLUSH ×4 (00:31→21:14)
[2022-01-10 07:17] LABS: Glucose, Whole Blood 345 mg/dL (60-115)
[2022-01-10 07:22] LABS: Hematocrit 32.2 % (42.0-52.0); Hemoglobin 10.8 g/dl (14.0-18.0); Mean Corpuscular HGB Conc 33.5 g/dl (31.0-36.0); Mean Corpuscular Hemoglobin 25.8 pg (27.0-33.0); Mean Corpuscular Volume 76.8 fL (80.0-98.0); Mean Platelet Volume 11.4 fL (9.4-12.4); Platelet Count 222 X10*3/uL (160-400); Red Blood Count 4.19 X10*6/uL (4.60-5.80); Red Cell Distribution Width 13.3 % (11.0-16.0); White Blood Count 6.6 X10*3/uL (4.8-10.8)
[2022-01-10 07:38] LABS: Glucose, Whole Blood 301 mg/dL (60-115)
[2022-01-10] MEDS: Insulin Glargine,Hum.rec.anlog 100 UNIT/ML 10 ML VIAL 35 UNIT SUBCUT (07:50)
[2022-01-10] MEDS: Insulin Lispro 100 UNIT/ML 3 ML VIAL SUBCUT ×4 (07:51→21:14)
[2022-01-10] MEDS: amLODIPine Besylate 5 MG TABLET PO (07:52)
[2022-01-10] MEDS: Enoxaparin Sodium 40 MG/0.4 ML SYRINGE SUBCUT (07:52)
[2022-01-10] MEDS: cloNIDine HCL 0.1 MG TABLET PO ×2 (07:52→21:13)
[2022-01-10] MEDS: Clopidogrel Bisulfate 75 MG TABLET PO (07:52)
[2022-01-10] MEDS: Aspirin Enteric Coated 81 MG TABLET.DR PO (07:52)
[2022-01-10] MEDS: risperiDONE 2 MG TABLET PO ×2 (07:52→21:13)
[2022-01-10 08:00] LABS: Anion Gap 14 (12-20); Blood Urea Nitrogen 16 mg/dL (9-16); Calcium 8.9 mg/dL (8.4-10.2); Carbon Dioxide 26 mmol/L (22-29); Chloride 97 mmol/L (96-108); Creatinine Clr Calc Pharmacy 91.3; Estimated Glomerular Filt Rate > 60; Glucose Fasting 367 mg/dL (60-99); Magnesium 1.9 mg/dL (1.6-2.6); Potassium 4.5 mmol/L (3.3-5.1); Sodium 132 mmol/L (135-145)
--- NOTE | 2022-01-10 08:59 | P.PNIM_ITS ---
Subjective Subjective Date of Service: 01/10/22 Interval History: cc: amp site abscess interval history:no complaints ENT Ears, Nose, Mouth, and Throat: Reports Normal hearing present Cardiovascular Cardiovascular: Reports no additional cardiovascular complaints Respiratory Respiratory: Reports no additional respiratory complaints Neurologic Neurologic: Reports Normal hearing present Physical Exam Vital Signs: Vital Signs: Last Vital Signs Temp 98 F 01/10/22 06:47 Pulse 87 01/10/22 06:47 Resp 16 01/10/22 06:47 BP 141/68 H 01/10/22 06:47 Pulse Ox 96 01/10/22 06:47 O2 Del Method 01/10/22 06:47 BMI result Body Mass Index 34.1 Const: General: cooperative, healthy appearing and comfortable Orientation/consciousness: oriented to person, oriented to place and oriented to time HEENT: Head: Yes normal to inspection Neck: Neck: Yes normal visual inspection Carotids: no bruits Chest: Chest palpation & inspection: normal inspection of the chest Resp: Effort & Inspection: normal respiratory effort and able to speak in complete sentences Auscultation: clear to auscultation bilaterally, no crackles, no rales, no rhonchi and no wheezes Cardio: Rate: regular rate Rhythm: regular rhythm Heart sounds: S1 normal heart sound present and S2 normal heart sound present Bruits: no carotid bruits Peripheral pulses: Peripheral pulses 2+ throughout GI: Inspection: Yes normal to inspection Skin: Wounds: wounds noted (Right 5th toe amputation site wound clean) Hair: normal Neuro: General: oriented to person, oriented to place and oriented to time Cranial nerves: Yes Normal hearing present Cognition (Neuro): normal cognition Motor exam (neuro): 5/5 motor strength present throughout Extrem: Other: venous exam: No significant superficial varicosities or spider telangiectasias, minimal edema General: No clubbing, No cyanosis and No edema Psych: Appearance: grossly normal Mental Status: mental status grossly normal Speech and movement: Normal speech and movement present Objective Data Active Medications Acetaminophen (Acetaminophen 325 Mg Tablet) 650 mg PO Q6H PRN PRN Reason: Pain, Mild (Pain Scale 1-3) Last Admin: 01/09/22 16:27 Dose: 650 mg Documented By: MADHU Amlodipine Besylate (Amlodipine Besylate 5 Mg Tablet) 5 mg PO DAILY [facility]; Protocol Last Admin: 01/10/22 07:52 Dose: 5 mg Documented By: NARENDRA Aspirin (Aspirin Enteric Coated 81 Mg Tablet.) 81 mg PO DAILY [facility] Last Admin: 01/10/22 07:52 Dose: 81 mg Documented By: NARENDRA Clonidine HCl (Clonidine Hcl 0.1 Mg Tablet) 0.1 mg PO BID [facility]; Protocol Last Admin: 01/10/22 07:52 Dose: 0.1 mg Documented By: NARENDRA Clopidogrel Bisulfate (Clopidogrel Bisulfate 75 Mg Tablet) 75 mg PO DAILY [facility] Last Admin: 01/10/22 07:52 Dose: 75 mg Documented By: NARENDRA Dextrose (Dextrose 50 % 25 Gm/50 Ml Syringe) 25 gm IVPUSH Q15M PRN; Protocol PRN Reason: per Hypoglycemia Standing Ord. Dextrose (Dextrose 50 % 25 Gm/50 Ml Syringe) 25 gm IVPUSH Q15M PRN; Protocol PRN Reason: per Hypoglycemia Standing Ord. Enoxaparin Sodium (Enoxaparin Sodium 40 Mg/0.4 Ml Syringe) 40 mg SUBCUT Q24H [facility] Last Admin: 01/10/22 07:52 Dose: 40 mg Documented By: NARENDRA Glucose (Glucose Gel 15 Gm Gel..Gram.) 15 gm PO Q15M PRN; Protocol PRN Reason: per Hypoglycemia Standing Ord. Glucose (Glucose Gel 15 Gm Gel..Gram.) 15 gm PO Q15M PRN; Protocol PRN Reason: per Hypoglycemia Standing Ord. Cefepime HCl 2 gm/ Sodium (Chloride) 50 mls @ 100 mls/hr IV Q8H [facility] Last Admin: 01/10/22 07:53 Dose: 100 mls/hr Documented By: NARENDRA Vancomycin HCl 1,000 mg/ (Sodium Chloride) 270 mls @ 270 mls/hr IV Q12H [facility] Last Infusion: 01/10/22 00:32 Dose: 0 mls/hr Documented By: TANISHA Insulin Glargine (Insulin Glargine,Hum.Rec.Anlog 100 Unit/Ml 10 Ml Vial) 35 unit SUBCUT DAILY [facility] Last Admin: 01/10/22 07:50 Dose: 35 unit Documented By: NARENDRA Insulin Human Lispro (Insulin Lispro 100 Unit/Ml 3 Ml Vial) 0 unit SUBCUT QIDACHS [facility]; Protocol Last Admin: 01/10/22 07:51 Dose: 8 unit Documented By: NARENDRA Melatonin (Melatonin 3 Mg Tablet) 6 mg PO BEDTIME PRN PRN Reason: Insomnia Last Admin: 01/10/22 00:25 Dose: 6 mg Documented By: TANISHA Morphine Sulfate (Morphine Sulfate 2 Mg/Ml Cartridge) 2 mg IVPUSH Q4H PRN; Protocol PRN Reason: Pain, Severe (Pain Scale 7-10) Last Admin: 01/10/22 00:25 Dose: 2 mg Documented By: TANISHA Ondansetron HCl (Ondansetron Hcl 4 Mg/2 Ml Vial) 4 mg IVPUSH Q8H PRN PRN Reason: Nausea and Vomiting Oxcarbazepine (Oxcarbazepine 300 Mg Tablet) 300 mg PO BEDTIME [facility] Last Admin: 01/09/22 22:48 Dose: 300 mg Documented By: TANISHA Pharmacy Consult (Consult Rx Vancomycin Dosing) 1 each MISCELLANE DAILY PRN PRN Reason: Consult order Pharmacy Consult (Consult Rx Perform Med Rec) 1 each MISCELLANE ONCE PRN PRN Reason: Consult order Pharmacy Consult (Consult Rx Vancomycin Dosing) 1 each MISCELLANE DAILY PRN PRN Reason: Consult order Risperidone (Risperidone 2 Mg Tablet) 2 mg PO BID [facility] Last Admin: 01/10/22 07:52 Dose: 2 mg Documented By: NARENDRA Sodium Chloride (0.9 % Sodium Chloride Flush 3 Ml Syringe) [facility] Last Admin: 01/10/22 07:53 Dose: 3 ml Documented By: NARENDRA Labs CBC & Chem 7: 01/10/22 06:18 01/10/22 06:18 Labs: Laboratory Results - last 24 hr 01/09/22 01/09/22 01/09/22 11:14 16:23 21:58 MCV MCH MCHC RDW Plt Count MPV Absolute Nucleated RBC Nucleated RBC % (auto) Anion Gap Estim Creat Clear Calc Estimated GFR POC Glucose 230 H 404 H* 440 H* Fasting Glucose Calcium Magnesium 01/10/22 01/10/22 01/10/22 00:13 06:18 06:18 MCV 76.8 L MCH 25.8 L MCHC 33.5 RDW 13.3 Plt Count 222 D MPV 11.4 Absolute Nucleated RBC 0.000 Nucleated RBC % (auto) 0.0 Anion Gap 14 Estim Creat Clear Calc 91.3 Estimated GFR > 60 POC Glucose 279 H Fasting Glucose 367 H* Calcium 8.9 Magnesium 1.9 01/10/22 01/10/22 06:22 06:47 MCV MCH MCHC RDW Plt Count MPV Absolute Nucleated RBC Nucleated RBC % (auto) Anion Gap Estim Creat Clear Calc Estimated GFR POC Glucose 301 H 345 H Fasting Glucose Calcium Magnesium Microbiology Microbiology Results: Microbiology 01/08/22 Unknown Blood Culture - Preliminary Blood - Venous No growth after 24 hours. 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, essential hypertension, mood disorder who was sent to the ED from Wound Care for concern of amputation site infection sepsis due to right 5th toe OM complicated by GM+ bacteremia continue vanc, cefepime ID eval vascular appreciated - no surgical intervention at this time follow up cultures DM with hyperglycemia insulin OBEY resolved htn amlodipine clonidine holding lisinopril for obey mood discorder risperdal PVD dapl dvt prophylaxis - lovenox full code reason for continued hospitalization:bacteremia, awaiting clearance Quality Stroke Does the patient have a stroke diagnosis?: No VTE Prior VTE?: No VTE Risk Level:: Medical - moderate - high VTE Device Contraindication: Treatment Not Indicated VTE Drug Contraindication: Treatment Not Indicated
[2022-01-10 10:04] LABS: Creatinine Clr Calc Pharmacy 89.1; Estimated Glomerular Filt Rate > 60
--- NOTE | 2022-01-10 10:42 | HE.PHANOTE ---
RE: vanco Trough came back at 11 on 01/10/22; increased dose to 1250mg Q12H with next level to be drawn 01/11/22 @2100. Predicted AUC 508mg/L
[2022-01-10 11:25] LABS: Glucose, Whole Blood 347 mg/dL (60-115)
[2022-01-10] MEDS: vancomycin HCL 1,250 MG in 0.9 % Sodium Chloride 250 ML 166.67 MG IV ×2 (11:31→22:39)
--- NOTE | 2022-01-10 13:23 | HO.VASCPN ---
Subjective Subjective Date of Service: 01/10/22 Patient reports: no new complaints and feels better Interval history: Very pleasant 51-year-old gentleman has been admitted for nonhealing right 5th toe wound. Has had no interval changes reports he is feeling about the same. Physical Exam Vital Signs: Vital Signs: Last Vital Signs Temp 97 F 01/10/22 11:12 Pulse 88 01/10/22 11:12 Resp 18 01/10/22 11:12 BP 134/75 01/10/22 11:12 Pulse Ox 97 01/10/22 11:12 O2 Del Method 01/10/22 11:12 BMI result Body Mass Index 34.1 Const: General: cooperative, healthy appearing and no acute distress Orientation/consciousness: oriented to person, oriented to place and oriented to time HEENT: Head: Yes normal to inspection Neck: Carotids: no bruits Chest: Chest palpation & inspection: normal inspection of the chest Resp: Effort & Inspection: normal respiratory effort and able to speak in complete sentences Auscultation: clear to auscultation bilaterally Cardio: Rate: regular rate Heart sounds: S1 normal heart sound present and S2 normal heart sound present GI: Inspection: Yes normal to inspection Skin: General skin exam: no rashes or lesions noted Wounds: wounds noted (Right foot opening no purulent material expressed today) Neuro: General: oriented to person, oriented to place, oriented to time and CN's II-XI intact bilaterally Extrem: General: Yes normal to inspection, Yes full ROM and Yes no clubbing, cyanosis or edema Psych: Appearance: grossly normal and well kempt Speech and movement: Normal speech and movement present Affect: normal affect Progress Note: A&P Assessment and plan (1) Wound of right foot: Status: Acute Assessment and Plan: In short doing well with the right foot. Await Infectious Disease evaluation. May need long-term IV antibiotics. We will continue monitor this patient with you. Thank you for allowing us to assist in his care. (2) PAD (peripheral artery disease): Status: Acute Time Spent With Patient Time: Total time spent is greater than 50% in coordination of care (as documented) at patient's floor/unit and/or counseling patient: Procedures Date of Service Date of Service: 01/10/22 Quality Stroke Does the patient have a stroke diagnosis?: No VTE Prior VTE?: No VTE Risk Level:: Medical - moderate - high VTE Device Contraindication: Treatment Not Indicated VTE Drug Contraindication: Treatment Not Indicated
[2022-01-10] MEDS: Acetaminophen 325 MG TABLET 650 MG PO (13:26)
[2022-01-10 15:55] LABS: Glucose, Whole Blood 377 mg/dL (60-115)
[2022-01-10 19:58] LABS: Glucose, Whole Blood 388 mg/dL (60-115)
[2022-01-10] MEDS: OXcarbazepine 300 MG TABLET PO (21:14)
[2022-01-10] MEDS: Insulin Regular, Human 100 UNIT/ML 3 ML VIAL IVPUSH (21:14)
[2022-01-11] MEDS: cefEPime HCl 2 GM in 0.9 % Sodium Chloride 50 ML IV ×2 (00:22→07:29)
[2022-01-11 04:00] VITALS: BP 147/74; PULSE 82; RESP 16; TEMP 36.4; O2SAT 97
[2022-01-11 05:50] LABS: Hematocrit 33.5 % (42.0-52.0); Mean Corpuscular HGB Conc 32.8 g/dl (31.0-36.0); Mean Corpuscular Hemoglobin 25.1 pg (27.0-33.0); Mean Corpuscular Volume 76.5 fL (80.0-98.0); Mean Platelet Volume 10.8 fL (9.4-12.4); Platelet Count 240 X10*3/uL (160-400); Red Blood Count 4.38 X10*6/uL (4.60-5.80); Red Cell Distribution Width 13.2 % (11.0-16.0); White Blood Count 7.4 X10*3/uL (4.8-10.8)
[2022-01-11 06:10] LABS: Anion Gap 13 (12-20); Blood Urea Nitrogen 21 mg/dL (9-16); Calcium 8.9 mg/dL (8.4-10.2); Carbon Dioxide 26 mmol/L (22-29); Chloride 97 mmol/L (96-108); Creatinine Clr Calc Pharmacy 89.1; Estimated Glomerular Filt Rate > 60; Glucose Fasting 339 mg/dL (60-99); Potassium 4.8 mmol/L (3.3-5.1); Sodium 131 mmol/L (135-145)
[2022-01-11 06:53] VITALS: BP 124/56; PULSE 79; RESP 18; TEMP 36.1; O2SAT 96
[2022-01-11 07:13] LABS: Glucose, Whole Blood 320 mg/dL (60-115)
[2022-01-11] MEDS: risperiDONE 2 MG TABLET PO ×2 (07:28→19:58)
[2022-01-11] MEDS: Clopidogrel Bisulfate 75 MG TABLET PO (07:28)
[2022-01-11] MEDS: Aspirin Enteric Coated 81 MG TABLET.DR PO (07:28)
[2022-01-11] MEDS: amLODIPine Besylate 5 MG TABLET PO (07:28)
[2022-01-11] MEDS: Enoxaparin Sodium 40 MG/0.4 ML SYRINGE SUBCUT (07:29)
[2022-01-11] MEDS: cloNIDine HCL 0.1 MG TABLET PO ×2 (07:29→19:58)
[2022-01-11] MEDS: Insulin Glargine,Hum.rec.anlog 100 UNIT/ML 10 ML VIAL 35 UNIT SUBCUT (07:30)
[2022-01-11] MEDS: Insulin Lispro 100 UNIT/ML 3 ML VIAL SUBCUT ×7 (07:30→19:59)
[2022-01-11] MEDS: 0.9 % Sodium Chloride Flush 3 ML SYRINGE IVFLUSH ×2 (07:32→15:30)
[2022-01-11] MEDS: Morphine Sulfate 2 MG/ML CARTRIDGE IVPUSH ×3 (07:37→20:03)
--- NOTE | 2022-01-11 09:31 | HO.PM.IMPN ---
Subjective Subjective Date of Service: 01/11/22 Interval History: cc: amp site abscess interval history:no complaints ENT Ears, Nose, Mouth, and Throat: Reports Normal hearing present Cardiovascular Cardiovascular: Reports no additional cardiovascular complaints Respiratory Respiratory: Reports no additional respiratory complaints Neurologic Neurologic: Reports Normal hearing present Physical Exam Vital Signs: Vital Signs: Last Vital Signs Temp 97 F 01/11/22 06:53 Pulse 79 01/11/22 06:53 Resp 18 01/11/22 06:53 BP 124/56 L 01/11/22 06:53 Pulse Ox 96 01/11/22 06:53 O2 Del Method 01/11/22 06:53 BMI result Body Mass Index 34.1 Const: General: cooperative, healthy appearing and no acute distress Orientation/consciousness: oriented to person, oriented to place and oriented to time HEENT: Head: Yes normal to inspection Neck: Carotids: no bruits Chest: Chest palpation & inspection: normal inspection of the chest Resp: Effort & Inspection: normal respiratory effort and able to speak in complete sentences Auscultation: clear to auscultation bilaterally Cardio: Rate: regular rate Heart sounds: S1 normal heart sound present and S2 normal heart sound present GI: Inspection: Yes normal to inspection Skin: General skin exam: no rashes or lesions noted Wounds: wounds noted (Right foot opening no purulent material expressed today) Neuro: General: oriented to person, oriented to place, oriented to time and CN's II-XI intact bilaterally Cranial nerves: Yes Normal hearing present Extrem: General: Yes normal to inspection, Yes full ROM and Yes no clubbing, cyanosis or edema Psych: Appearance: grossly normal and well kempt Speech and movement: Normal speech and movement present Affect: normal affect Objective Data Active Medications Acetaminophen (Acetaminophen 325 Mg Tablet) 650 mg PO Q6H PRN PRN Reason: Pain, Mild (Pain Scale 1-3) Last Admin: 01/10/22 13:26 Dose: 650 mg Documented By: NARENDRA Amlodipine Besylate (Amlodipine Besylate 5 Mg Tablet) 5 mg PO DAILY [facility]; Protocol Last Admin: 01/11/22 07:28 Dose: 5 mg Documented By: NARENDRA Aspirin (Aspirin Enteric Coated 81 Mg Tablet.) 81 mg PO DAILY [facility] Last Admin: 01/11/22 07:28 Dose: 81 mg Documented By: NARENDRA Clonidine HCl (Clonidine Hcl 0.1 Mg Tablet) 0.1 mg PO BID [facility]; Protocol Last Admin: 01/11/22 07:29 Dose: 0.1 mg Documented By: NARENDRA Clopidogrel Bisulfate (Clopidogrel Bisulfate 75 Mg Tablet) 75 mg PO DAILY [facility] Last Admin: 01/11/22 07:28 Dose: 75 mg Documented By: NARENDRA Dextrose (Dextrose 50 % 25 Gm/50 Ml Syringe) 25 gm IVPUSH Q15M PRN; Protocol PRN Reason: per Hypoglycemia Standing Ord. Dextrose (Dextrose 50 % 25 Gm/50 Ml Syringe) 25 gm IVPUSH Q15M PRN; Protocol PRN Reason: per Hypoglycemia Standing Ord. Enoxaparin Sodium (Enoxaparin Sodium 40 Mg/0.4 Ml Syringe) 40 mg SUBCUT Q24H [facility] Last Admin: 01/11/22 07:29 Dose: 40 mg Documented By: NARENDRA Glucose (Glucose Gel 15 Gm Gel..Gram.) 15 gm PO Q15M PRN; Protocol PRN Reason: per Hypoglycemia Standing Ord. Glucose (Glucose Gel 15 Gm Gel..Gram.) 15 gm PO Q15M PRN; Protocol PRN Reason: per Hypoglycemia Standing Ord. Cefepime HCl 2 gm/ Sodium (Chloride) 50 mls @ 100 mls/hr IV Q8H [facility] Last Infusion: 01/11/22 08:08 Dose: 100 mls/hr Documented By: NARENDRA Vancomycin HCl 1,250 mg/ (Sodium Chloride) 250 mls @ 166.667 mls/hr IV Q12H [facility] Last Infusion: 01/11/22 00:26 Dose: 0 mls/hr Documented By: TANISHA Insulin Glargine (Insulin Glargine,Hum.Rec.Anlog 100 Unit/Ml 10 Ml Vial) 35 unit SUBCUT DAILY [facility] Last Admin: 01/11/22 07:30 Dose: 35 unit Documented By: NARENDRA Insulin Human Lispro (Insulin Lispro 100 Unit/Ml 3 Ml Vial) 0 unit SUBCUT QIDACHS [facility]; Protocol Last Admin: 01/11/22 07:30 Dose: 8 unit Documented By: NARENDRA Melatonin (Melatonin 3 Mg Tablet) 6 mg PO BEDTIME PRN PRN Reason: Insomnia Last Admin: 01/10/22 21:13 Dose: 6 mg Documented By: TANISHA Morphine Sulfate (Morphine Sulfate 2 Mg/Ml Cartridge) 2 mg IVPUSH Q4H PRN; Protocol PRN Reason: Pain, Severe (Pain Scale 7-10) Last Admin: 01/11/22 07:37 Dose: 2 mg Documented By: NARENDRA Ondansetron HCl (Ondansetron Hcl 4 Mg/2 Ml Vial) 4 mg IVPUSH Q8H PRN PRN Reason: Nausea and Vomiting Oxcarbazepine (Oxcarbazepine 300 Mg Tablet) 300 mg PO BEDTIME [facility] Last Admin: 01/10/22 21:14 Dose: 300 mg Documented By: TANISHA Pharmacy Consult (Consult Rx Vancomycin Dosing) 1 each MISCELLANE DAILY PRN PRN Reason: Consult order Pharmacy Consult (Consult Rx Perform Med Rec) 1 each MISCELLANE ONCE PRN PRN Reason: Consult order Pharmacy Consult (Consult Rx Vancomycin Dosing) 1 each MISCELLANE DAILY PRN PRN Reason: Consult order Risperidone (Risperidone 2 Mg Tablet) 2 mg PO BID [facility] Last Admin: 01/11/22 07:28 Dose: 2 mg Documented By: NARENDRA Sodium Chloride (0.9 % Sodium Chloride Flush 3 Ml Syringe) 3 ml IVFLUSH QSHIFT [facility] Last Admin: 01/11/22 07:32 Dose: 3 ml Documented By: NARENDRA Labs CBC & Chem 7: 01/11/22 05:18 01/11/22 05:18 Labs: Laboratory Results - last 24 hr 01/10/22 01/10/22 01/10/22 09:13 09:13 11:12 MCV MCH MCHC RDW Plt Count MPV Absolute Nucleated RBC Nucleated RBC % (auto) Anion Gap Estim Creat Clear Calc 89.1 Estimated GFR > 60 POC Glucose 347 H Fasting Glucose Calcium Vancomycin Trough 11.0 01/10/22 01/10/22 01/11/22 15:31 19:33 05:18 MCV MCH MCHC RDW Plt Count MPV Absolute Nucleated RBC Nucleated RBC % (auto) Anion Gap 13 Estim Creat Clear Calc 89.1 Estimated GFR > 60 POC Glucose 377 H* 388 H* Fasting Glucose 339 H Calcium 8.9 Vancomycin Trough 01/11/22 01/11/22 05:18 06:50 MCV 76.5 L MCH 25.1 L MCHC 32.8 RDW 13.2 Plt Count 240 MPV 10.8 Absolute Nucleated RBC 0.000 Nucleated RBC % (auto) 0.0 Anion Gap Estim Creat Clear Calc Estimated GFR POC Glucose 320 H Fasting Glucose Calcium Vancomycin Trough Microbiology Microbiology Results: Microbiology 01/10/22 06:18 Blood Culture - Preliminary Blood - Venous No growth after 24 hours. 01/10/22 06:18 Blood Culture - Preliminary Blood - Venous No growth after 24 hours. 01/08/22 21:54 Blood Culture - Final Blood - Venous Strep agalactiae (Grp B) 01/08/22 Unknown Blood Culture - Preliminary Blood - Venous No growth after 48 hours. 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 toe amputation, essential hypertension, mood disorder who was sent to the ED from [facility] for concern of amputation site infection sepsis due to right 5th toe OM complicated by group b strep bacteremia continue vanc, cefepime ID eval vascular appreciated - no surgical intervention at this time DM with hyperglycemia insulin OBEY resolved htn amlodipine clonidine holding lisinopril for obey mood discorder risperdal PVD dapl dvt prophylaxis - lovenox full code reason for continued hospitalization:bacteremia, awaiting clearance Quality Stroke Does the patient have a stroke diagnosis?: No VTE Prior VTE?: No VTE Risk Level:: Medical - moderate - high VTE Device Contraindication: Treatment Not Indicated VTE Drug Contraindication: Treatment Not Indicated
--- NOTE | 2022-01-11 10:58 | HO.VASCPN ---
Subjective Subjective Date of Service: 01/11/22 Patient reports: no new complaints and feels better Interval history: Patient seen and examined. No significant events over the past day. Do dressing had been changed yesterday by nursing. He reports that he is doing somewhat better. He has had no other issues. He now presents for routine vascular follow-up. Physical Exam Vital Signs: Vital Signs: Last Vital Signs Temp 97 F 01/11/22 06:53 Pulse 79 01/11/22 06:53 Resp 18 01/11/22 06:53 BP 124/56 L 01/11/22 06:53 Pulse Ox 96 01/11/22 06:53 O2 Del Method 01/11/22 06:53 BMI result Body Mass Index 34.1 Const: General: cooperative, healthy appearing and no acute distress Orientation/consciousness: oriented to person, oriented to place and oriented to time HEENT: Head: Yes normal to inspection Neck: Carotids: no bruits Chest: Chest palpation & inspection: normal inspection of the chest Resp: Effort & Inspection: normal respiratory effort and able to speak in complete sentences Auscultation: clear to auscultation bilaterally Cardio: Rate: regular rate Heart sounds: S1 normal heart sound present and S2 normal heart sound present GI: Inspection: Yes normal to inspection Skin: Other: Right lateral foot amp site wound nonhealing, purulent pocket expressed. This was packed with 1 in iodoform packing General skin exam: no rashes or lesions noted Wounds: wounds noted (Right lateral foot amp site nonhealing) Neuro: General: oriented to person, oriented to place, oriented to time and CN's II-XI intact bilaterally Extrem: General: Yes normal to inspection, Yes full ROM and Yes no clubbing, cyanosis or edema Psych: Appearance: grossly normal and well kempt Speech and movement: Normal speech and movement present Affect: normal affect Progress Note: A&P Assessment and plan (1) PAD (peripheral artery disease): Status: Acute Assessment and Plan: In short patient has diabetic foot ulcer. Concern is underlying infection. We have expressed purulent material on several occasions and this has been drained. The wound is now packed. I have written nursing instructions for further packing and wound changes. Await ID input. We will continue to monitor the status of this patient. Thank you for allowing us to assist in this patient's care. Time Spent With Patient Time: Total time spent is greater than 50% in coordination of care (as documented) at patient's floor/unit and/or counseling patient: Procedures Date of Service Date of Service: 01/11/22 Quality Stroke Does the patient have a stroke diagnosis?: No VTE Prior VTE?: No VTE Risk Level:: Medical - moderate - high VTE Device Contraindication: Treatment Not Indicated VTE Drug Contraindication: Treatment Not Indicated
[2022-01-11 11:02] VITALS: BP 146/72; PULSE 86; RESP 18; TEMP 36.6; O2SAT 97
[2022-01-11 11:10] LABS: Glucose, Whole Blood 404 mg/dL (60-115)
[2022-01-11] MEDS: vancomycin HCL 1,250 MG in 0.9 % Sodium Chloride 250 ML 166.67 MG IV ×2 (11:35→22:41)
[2022-01-11 15:19] VITALS: BP 141/80; PULSE 80; RESP 17; TEMP 36.5; O2SAT 100
[2022-01-11 15:54] LABS: Glucose, Whole Blood 318 mg/dL (60-115)
[2022-01-11 19:31] VITALS: BP 168/87; PULSE 97; RESP 18; TEMP 36.4; O2SAT 97
[2022-01-11 19:49] LABS: Glucose, Whole Blood 344 mg/dL (60-115)
[2022-01-11] MEDS: OXcarbazepine 300 MG TABLET PO (19:58)
[2022-01-11 21:33] LABS: Vancomycin Trough 15.8 mcg/mL (10.0-20.0)
--- NOTE | 2022-01-11 21:42 | HE.PHANOTE ---
RE VANCO TROUGH INCREASED BY ALMOST 50%. MONITOR CLOSELY. IN THEORY PT CLOSE TO STEADY STATE. WILL GET LEVEL AFTER 2 DOSES. MAY NEED TO DECREASE TO 1 GRAM Q12H. DAMIEN
[2022-01-11 23:34] VITALS: BP 138/69; PULSE 92; RESP 18; TEMP 36.8; O2SAT 98
[2022-01-12] MEDS: 0.9 % Sodium Chloride Flush 3 ML SYRINGE IVFLUSH ×4 (00:38→20:22)
[2022-01-12 03:48] VITALS: BP 142/84; PULSE 83; RESP 18; TEMP 36.8; O2SAT 98
[2022-01-12 06:13] LABS: Hematocrit 33.2 % (42.0-52.0); Hemoglobin 10.8 g/dl (14.0-18.0); Mean Corpuscular HGB Conc 32.5 g/dl (31.0-36.0); Mean Corpuscular Hemoglobin 24.7 pg (27.0-33.0); Mean Platelet Volume 10.7 fL (9.4-12.4); Platelet Count 235 X10*3/uL (160-400); Red Blood Count 4.37 X10*6/uL (4.60-5.80); White Blood Count 7.7 X10*3/uL (4.8-10.8)
[2022-01-12 06:29] LABS: Anion Gap 13 (12-20); Blood Urea Nitrogen 19 mg/dL (9-16); Calcium 9.1 mg/dL (8.4-10.2); Carbon Dioxide 28 mmol/L (22-29); Chloride 97 mmol/L (96-108); Creatinine Clr Calc Pharmacy 85.6; Estimated Glomerular Filt Rate > 60; Glucose Fasting 312 mg/dL (60-99); Potassium 4.7 mmol/L (3.3-5.1); Sodium 133 mmol/L (135-145)
[2022-01-12 07:17] VITALS: BP 141/76; PULSE 83; RESP 18; TEMP 36.3; O2SAT 97
[2022-01-12 07:37] LABS: Glucose, Whole Blood 269 mg/dL (60-115)
[2022-01-12] MEDS: cloNIDine HCL 0.1 MG TABLET PO ×2 (07:50→20:22)
[2022-01-12] MEDS: Aspirin Enteric Coated 81 MG TABLET.DR PO (07:51)
[2022-01-12] MEDS: amLODIPine Besylate 5 MG TABLET PO (07:51)
[2022-01-12] MEDS: Clopidogrel Bisulfate 75 MG TABLET PO (07:51)
[2022-01-12] MEDS: Insulin Lispro 100 UNIT/ML 3 ML VIAL SUBCUT ×8 (07:51→20:22)
[2022-01-12] MEDS: risperiDONE 2 MG TABLET PO ×2 (07:51→20:22)
[2022-01-12] MEDS: Insulin Glargine,Hum.rec.anlog 100 UNIT/ML 10 ML VIAL 35 UNIT SUBCUT (07:52)
[2022-01-12] MEDS: Enoxaparin Sodium 40 MG/0.4 ML SYRINGE SUBCUT (07:57)
[2022-01-12] MEDS: Morphine Sulfate 2 MG/ML CARTRIDGE IVPUSH ×3 (08:08→23:12)
--- NOTE | 2022-01-12 09:00 | HO.PM.IMPN ---
Subjective Subjective Date of Service: 01/12/22 Interval History: cc: amp site abscess interval history:no complaints ENT Ears, Nose, Mouth, and Throat: Reports Normal hearing present Cardiovascular Cardiovascular: Reports no additional cardiovascular complaints Respiratory Respiratory: Reports no additional respiratory complaints Neurologic Neurologic: Reports Normal hearing present Physical Exam Vital Signs: Vital Signs: Last Vital Signs Temp 97.4 F 01/12/22 07:17 Pulse 83 01/12/22 07:17 Resp 18 01/12/22 07:17 BP 141/76 H 01/12/22 07:17 Pulse Ox 97 01/12/22 07:17 O2 Del Method 01/12/22 07:17 BMI result Body Mass Index 34.1 Const: General: cooperative, healthy appearing and no acute distress Orientation/consciousness: oriented to person, oriented to place and oriented to time HEENT: Head: Yes normal to inspection Neck: Carotids: no bruits Chest: Chest palpation & inspection: normal inspection of the chest Resp: Effort & Inspection: normal respiratory effort and able to speak in complete sentences Auscultation: clear to auscultation bilaterally Cardio: Rate: regular rate Heart sounds: S1 normal heart sound present and S2 normal heart sound present GI: Inspection: Yes normal to inspection Skin: Other: Right lateral foot amp site wound nonhealing, purulent pocket expressed. This was packed with 1 in iodoform packing General skin exam: no rashes or lesions noted Wounds: wounds noted (Right lateral foot amp site nonhealing) Neuro: General: oriented to person, oriented to place, oriented to time and CN's II-XI intact bilaterally Cranial nerves: Yes Normal hearing present Extrem: General: Yes normal to inspection, Yes full ROM and Yes no clubbing, cyanosis or edema Psych: Appearance: grossly normal and well kempt Speech and movement: Normal speech and movement present Affect: normal affect Objective Data Active Medications Acetaminophen (Acetaminophen 325 Mg Tablet) 650 mg PO Q6H PRN PRN Reason: Pain, Mild (Pain Scale 1-3) Last Admin: 01/10/22 13:26 Dose: 650 mg Documented By: NARENDRA Amlodipine Besylate (Amlodipine Besylate 5 Mg Tablet) 5 mg PO DAILY [facility]; Protocol Last Admin: 01/12/22 07:51 Dose: 5 mg Documented By: JUAN ANTONIO Aspirin (Aspirin Enteric Coated 81 Mg Tablet.) 81 mg PO DAILY [facility] Last Admin: 01/12/22 07:51 Dose: 81 mg Documented By: JUAN ANTONIO Clonidine HCl (Clonidine Hcl 0.1 Mg Tablet) 0.1 mg PO BID [facility]; Protocol Last Admin: 01/12/22 07:50 Dose: 0.1 mg Documented By: JUAN ANTONIO Clopidogrel Bisulfate (Clopidogrel Bisulfate 75 Mg Tablet) 75 mg PO DAILY [facility] Last Admin: 01/12/22 07:51 Dose: 75 mg Documented By: JUAN ANTONIO Dextrose (Dextrose 50 % 25 Gm/50 Ml Syringe) 25 gm IVPUSH Q15M PRN; Protocol PRN Reason: per Hypoglycemia Standing Ord. Dextrose (Dextrose 50 % 25 Gm/50 Ml Syringe) 25 gm IVPUSH Q15M PRN; Protocol PRN Reason: per Hypoglycemia Standing Ord. Enoxaparin Sodium (Enoxaparin Sodium 40 Mg/0.4 Ml Syringe) 40 mg SUBCUT Q24H [facility] Last Admin: 01/12/22 07:57 Dose: 40 mg Documented By: JUAN ANTONIO Glucose (Glucose Gel 15 Gm Gel..Gram.) 15 gm PO Q15M PRN; Protocol PRN Reason: per Hypoglycemia Standing Ord. Glucose (Glucose Gel 15 Gm Gel..Gram.) 15 gm PO Q15M PRN; Protocol PRN Reason: per Hypoglycemia Standing Ord. Vancomycin HCl 1,250 mg/ (Sodium Chloride) 250 mls @ 166.667 mls/hr IV Q12H [facility] Last Infusion: 01/12/22 00:41 Dose: 0 mls/hr Documented By: SYDNI Insulin Glargine (Insulin Glargine,Hum.Rec.Anlog 100 Unit/Ml 10 Ml Vial) 35 unit SUBCUT DAILY [facility] Last Admin: 01/12/22 07:52 Dose: 35 unit Documented By: JUAN ANTONIO Insulin Human Lispro (Insulin Lispro 100 Unit/Ml 3 Ml Vial) 0 unit SUBCUT QIDACHS [facility]; Protocol Last Admin: 01/12/22 07:51 Dose: 6 unit Documented By: JUAN ANTONIO Insulin Human Lispro (Insulin Lispro 100 Unit/Ml 3 Ml Vial) 5 unit SUBCUT QIDACHS [facility] Last Admin: 01/12/22 08:10 Dose: 5 unit Documented By: JUAN ANTONIO Melatonin (Melatonin 3 Mg Tablet) 6 mg PO BEDTIME PRN PRN Reason: Insomnia Last Admin: 01/10/22 21:13 Dose: 6 mg Documented By: TANISHA Morphine Sulfate (Morphine Sulfate 2 Mg/Ml Cartridge) 2 mg IVPUSH Q4H PRN; Protocol PRN Reason: Pain, Severe (Pain Scale 7-10) Last Admin: 01/12/22 08:08 Dose: 2 mg Documented By: JUAN ANTONIO Ondansetron HCl (Ondansetron Hcl 4 Mg/2 Ml Vial) 4 mg IVPUSH Q8H PRN PRN Reason: Nausea and Vomiting Oxcarbazepine (Oxcarbazepine 300 Mg Tablet) 300 mg PO BEDTIME [facility] Last Admin: 01/11/22 19:58 Dose: 300 mg Documented By: MOHINDER Pharmacy Consult (Consult Rx Vancomycin Dosing) 1 each MISCELLANE DAILY PRN PRN Reason: Consult order Pharmacy Consult (Consult Rx Perform Med Rec) 1 each MISCELLANE ONCE PRN PRN Reason: Consult order Pharmacy Consult (Consult Rx Vancomycin Dosing) 1 each MISCELLANE DAILY PRN PRN Reason: Consult order Risperidone (Risperidone 2 Mg Tablet) 2 mg PO BID [facility] Last Admin: 01/12/22 07:51 Dose: 2 mg Documented By: JUAN ANTONIO Sodium Chloride (0.9 % Sodium Chloride Flush 3 Ml Syringe) 3 ml IVFLUSH QSHIFT [facility] Last Admin: 01/12/22 08:09 Dose: 3 ml Documented By: JUAN ANTONIO Labs CBC & Chem 7: 01/12/22 05:52 01/12/22 05:52 Labs: Laboratory Results - last 24 hr 01/11/22 01/11/22 01/11/22 11:01 15:21 19:33 MCV MCH MCHC RDW Plt Count MPV Absolute Nucleated RBC Nucleated RBC % (auto) Anion Gap Estim Creat Clear Calc Estimated GFR POC Glucose 404 H* 318 H 344 H Fasting Glucose Calcium Vancomycin Trough 01/11/22 01/12/22 01/12/22 20:48 05:52 05:52 MCV 76.0 L MCH 24.7 L MCHC 32.5 RDW 13.0 Plt Count 235 MPV 10.7 Absolute Nucleated RBC 0.000 Nucleated RBC % (auto) 0.0 Anion Gap 13 Estim Creat Clear Calc 85.6 Estimated GFR > 60 POC Glucose Fasting Glucose 312 H Calcium 9.1 Vancomycin Trough 15.8 01/12/22 07:16 MCV MCH MCHC RDW Plt Count MPV Absolute Nucleated RBC Nucleated RBC % (auto) Anion Gap Estim Creat Clear Calc Estimated GFR POC Glucose 269 H Fasting Glucose Calcium Vancomycin Trough Microbiology Microbiology Results: Microbiology 01/10/22 06:18 Blood Culture - Preliminary Blood - Venous No growth after 24 hours. 01/10/22 06:18 Blood Culture - Preliminary Blood - Venous No growth after 24 hours. 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, essential hypertension, mood disorder who was sent to the ED from Wound Care for concern of amputation site infection sepsis due to right 5th toe OM complicated by group b strep bacteremia continue vanc to cover group b strep in [place] and MRSA in wound Id appreciated plan for 6 week total vanc or ertapenem (end feb 18, 2022) vascular appreciated - no surgical intervention at this time DM with hyperglycemia insulin VINCE resolved htn amlodipine clonidine holding lisinopril for vince mood discorder risperdal PVD dapl dvt prophylaxis - lovenox full code reason for continued hospitalization:bacteremia, awaiting clearance for picc Quality Stroke Does the patient have a stroke diagnosis?: No VTE Prior VTE?: No VTE Risk Level:: Medical - moderate - high VTE Device Contraindication: Treatment Not Indicated VTE Drug Contraindication: Treatment Not Indicated
[2022-01-12] MEDS: vancomycin HCL 1,250 MG in 0.9 % Sodium Chloride 250 ML 166.67 MG IV ×2 (11:21→23:04)
[2022-01-12 11:22] VITALS: BP 139/70; PULSE 81; RESP 81; TEMP 36.3; O2SAT 99
[2022-01-12 11:44] LABS: Glucose, Whole Blood 281 mg/dL (60-115)
[2022-01-12 15:57] VITALS: BP 170/85; PULSE 76; RESP 18; TEMP 36.8; O2SAT 98
[2022-01-12 16:35] LABS: Glucose, Whole Blood 277 mg/dL (60-115)
[2022-01-12 19:47] VITALS: BP 172/79; PULSE 87; RESP 18; TEMP 37.1; O2SAT 96
[2022-01-12 20:11] LABS: Glucose, Whole Blood 355 mg/dL (60-115)
[2022-01-12] MEDS: OXcarbazepine 300 MG TABLET PO (20:22)
[2022-01-12 22:07] LABS: Vancomycin Random 16.6 mcg/mL (15-20)
--- NOTE | 2022-01-12 22:45 | W.PM.IDCN ---
History of Present Illness Data of Consult Service Date: 01/11/22 Requesting physician: Serafin Carmichael Primary Care Provider: Mariel Mendez NP HPI Reason for consult: sepsis,Group B strep bacteremia,wound MRSA and strep He presents with pain and swelling right lateral foot area at amputation site. He had amputation right fifth digit on 11/30 for necrosis toe by Dr Holt. He has had Group B strep and MRSA from wound lateral area. Review of Systems Review of Systems: Yes all other systems are reviewed and are negative [facility] Past Medical History Medical History Broken toe Diabetes HCV (hepatitis C virus) Hypertension Osteomyelitis PAD (peripheral artery disease) Schizoaffective disorder Family History Family History Father Diabetes mellitus Family history: reviewed and not pertinent Social History Social History Household Members: Family Household Members Other:: Friend Housing: House Do you presently have visiting nurse or other home services: No Alcohol intake: never Patient Tobacco Use Status: Former Tobacco user Quit Date: 08/07/21 service: No Current occupational status: unemployed Meds Allergies Allergy/AdvReac Type Severity Reaction Status Date / Time No Known Allergies Allergy Verified 01/03/22 09:41 Active Medications: Current Medications Acetaminophen (Acetaminophen 325 Mg Tablet) 650 mg PO Q6H PRN PRN Reason: Pain, Mild (Pain Scale 1-3) Last Admin: 01/10/22 13:26 Dose: 650 mg Amlodipine Besylate (Amlodipine Besylate 5 Mg Tablet) 5 mg PO DAILY [facility]; Protocol Last Admin: 01/12/22 07:51 Dose: 5 mg Aspirin (Aspirin Enteric Coated 81 Mg Tablet.) 81 mg PO DAILY [facility] Last Admin: 01/12/22 07:51 Dose: 81 mg Clonidine HCl (Clonidine Hcl 0.1 Mg Tablet) 0.1 mg PO BID [facility]; Protocol Last Admin: 01/12/22 20:22 Dose: 0.1 mg Clopidogrel Bisulfate (Clopidogrel Bisulfate 75 Mg Tablet) 75 mg PO DAILY [facility] Last Admin: 01/12/22 07:51 Dose: 75 mg Dextrose (Dextrose 50 % 25 Gm/50 Ml Syringe) 25 gm IVPUSH Q15M PRN; Protocol PRN Reason: per Hypoglycemia Standing Ord. Dextrose (Dextrose 50 % 25 Gm/50 Ml Syringe) 25 gm IVPUSH Q15M PRN; Protocol PRN Reason: per Hypoglycemia Standing Ord. Enoxaparin Sodium (Enoxaparin Sodium 40 Mg/0.4 Ml Syringe) 40 mg SUBCUT Q24H [facility] Last Admin: 01/12/22 07:57 Dose: 40 mg Glucose (Glucose Gel 15 Gm Gel..Gram.) 15 gm PO Q15M PRN; Protocol PRN Reason: per Hypoglycemia Standing Ord. Glucose (Glucose Gel 15 Gm Gel..Gram.) 15 gm PO Q15M PRN; Protocol PRN Reason: per Hypoglycemia Standing Ord. Vancomycin HCl 1,250 mg/ (Sodium Chloride) 250 mls @ 166.667 mls/hr IV Q12H [facility] Last Infusion: 01/12/22 12:57 Dose: Infused Insulin Glargine (Insulin Glargine,Hum.Rec.Anlog 100 Unit/Ml 10 Ml Vial) 35 unit SUBCUT DAILY [facility] Last Admin: 01/12/22 07:52 Dose: 35 unit Insulin Human Lispro (Insulin Lispro 100 Unit/Ml 3 Ml Vial) 0 unit SUBCUT QIDACHS [facility]; Protocol Last Admin: 01/12/22 20:22 Dose: 10 unit Insulin Human Lispro (Insulin Lispro 100 Unit/Ml 3 Ml Vial) 5 unit SUBCUT QIDACHS [facility] Last Admin: 01/12/22 20:22 Dose: 5 unit Melatonin (Melatonin 3 Mg Tablet) 6 mg PO BEDTIME PRN PRN Reason: Insomnia Last Admin: 01/10/22 21:13 Dose: 6 mg Morphine Sulfate (Morphine Sulfate 2 Mg/Ml Cartridge) 2 mg IVPUSH Q4H PRN; Protocol PRN Reason: Pain, Severe (Pain Scale 7-10) Last Admin: 01/12/22 19:35 Dose: 2 mg Ondansetron HCl (Ondansetron Hcl 4 Mg/2 Ml Vial) 4 mg IVPUSH Q8H PRN PRN Reason: Nausea and Vomiting Oxcarbazepine (Oxcarbazepine 300 Mg Tablet) 300 mg PO BEDTIME [facility] Last Admin: 01/12/22 20:22 Dose: 300 mg Pharmacy Consult (Consult Rx Vancomycin Dosing) 1 each MISCELLANE DAILY PRN PRN Reason: Consult order Pharmacy Consult (Consult Rx Perform Med Rec) 1 each MISCELLANE ONCE PRN PRN Reason: Consult order Pharmacy Consult (Consult Rx Vancomycin Dosing) 1 each MISCELLANE DAILY PRN PRN Reason: Consult order Risperidone (Risperidone 2 Mg Tablet) 2 mg PO BID [facility] Last Admin: 01/12/22 20:22 Dose: 2 mg Sodium Chloride (0.9 % Sodium Chloride Flush 3 Ml Syringe) 3 ml IVFLUSH QSHIFT [facility] Last Admin: 01/12/22 20:22 Dose: 3 ml Home Medications Medication Instructions Recorded Confirmed Last Taken Type doxycycline hyclate 100 mg tablet 1 tab PO BID 01/09/22 01/09/22 01/08/22 History insulin human U-100 NPH-regulr 50 unit subcut QPM 01/09/22 01/09/22 01/08/22 History 70-30 mix 100 unit/mL subcutaneous susp (Humulin 70/30 U-100 Insulin) Physical Exam Vital Signs: Vital Signs: Last Vital Signs Temp 98.8 F 01/12/22 19:47 Pulse 87 01/12/22 19:47 Resp 18 01/12/22 19:47 BP 172/79 H 01/12/22 19:47 Pulse Ox 96 01/12/22 19:47 O2 Del Method 01/12/22 19:47 BMI result Body Mass Index 34.1 Const: General: cooperative HEENT: Head: Yes normal to inspection Face and sinus: Yes normal facial exam Mouth: Normal oral and palatal mucosa present Teeth and gingiva: dentition normal Eyes: General: appearance normal, both eyes and all related structures Pupils: Equal, round and reactive pupils present Resp: Effort & Inspection: normal respiratory effort Cardio: Rate: regular rate Rhythm: regular rhythm GI: Palpation (GI): Soft to palpation and nontender : General: Yes no CVA tenderness Back/Spine/Pelvis: Back: no CVA tenderness Skin: General skin exam: no rashes or lesions noted Neuro: General: moves all extremities Cranial nerves: Yes Equal, round and reactive pupils present Extrem: Other: lateral right fifth toe area swelling and redness Psych: Appearance: grossly normal Results Labs CBC & Chem 7: 01/12/22 05:52 01/12/22 05:52 Labs: Short CBC 01/12/22 Range/Units 05:52 WBC 7.7 (4.8-10.8) X10*3/uL Hgb 10.8 L (14.0-18.0) g/dl Hct 33.2 L (42.0-52.0) % Plt Count 235 (160-400) X10*3/uL BMP 01/12/22 05:52 Sodium 133 L Potassium 4.7 Chloride 97 Carbon Dioxide 28 BUN 19 H Creatinine 1.27 Calcium 9.1 Microbiology Microbiology Results: Microbiology 01/10/22 06:18 Blood - Venous Blood Culture - Preliminary No growth after 48 hours. 01/10/22 06:18 Blood - Venous Blood Culture - Preliminary No growth after 48 hours. 01/08/22 21:54 Blood - Venous Blood Culture - Final Strep agalactiae (Grp B) 01/08/22 Unknown Blood - Venous Blood Culture - Preliminary No growth after 48 hours. Assessment and Plan (1) Sepsis: Status: Acute There is Group B strep He has MRSA and Group B strep as well from lateral fifth toe. (2) Osteomyelitis: Status: Acute (3) Wound of right foot: Status: Acute Plan IV Vancomycin since had MRSA from wound as well as Group B strep for 6 weeks Po antibiotic possibly after.
[2022-01-13] VITALS: BP 146/66; PULSE 82; RESP 18; TEMP 36.8; O2SAT 96
[2022-01-13 03:37] VITALS: BP 136/64; PULSE 79; RESP 18; TEMP 36.5; O2SAT 96
[2022-01-13 07:08] LABS: Creatinine Clr Calc Pharmacy 88.4; Estimated Glomerular Filt Rate > 60
[2022-01-13 07:55] LABS: Glucose, Whole Blood 269 mg/dL (60-115)
[2022-01-13 08:00] VITALS: BP 125/64; PULSE 90; RESP 18; TEMP 36.3; O2SAT 97
[2022-01-13] MEDS: cloNIDine HCL 0.1 MG TABLET PO ×2 (08:14→20:15)
[2022-01-13] MEDS: Aspirin Enteric Coated 81 MG TABLET.DR PO (08:14)
[2022-01-13] MEDS: amLODIPine Besylate 5 MG TABLET PO (08:14)
[2022-01-13] MEDS: risperiDONE 2 MG TABLET PO ×2 (08:14→20:15)
[2022-01-13] MEDS: Insulin Glargine,Hum.rec.anlog 100 UNIT/ML 10 ML VIAL 35 UNIT SUBCUT (08:15)
[2022-01-13] MEDS: Clopidogrel Bisulfate 75 MG TABLET PO (08:15)
[2022-01-13] MEDS: Insulin Lispro 100 UNIT/ML 3 ML VIAL SUBCUT ×8 (08:15→20:16)
[2022-01-13] MEDS: 0.9 % Sodium Chloride Flush 3 ML SYRINGE IVFLUSH ×3 (08:16→20:20)
[2022-01-13] MEDS: Enoxaparin Sodium 40 MG/0.4 ML SYRINGE SUBCUT (08:16)
[2022-01-13] MEDS: Morphine Sulfate 2 MG/ML CARTRIDGE IVPUSH ×2 (08:26→17:48)
--- NOTE | 2022-01-13 08:30 | P.PNIM_ITS ---
Subjective Subjective Date of Service: 01/13/22 Interval History: cc: amp site abscess interval history:no complaints ENT Ears, Nose, Mouth, and Throat: Reports Normal hearing present Cardiovascular Cardiovascular: Reports no additional cardiovascular complaints Respiratory Respiratory: Reports no additional respiratory complaints Neurologic Neurologic: Reports Normal hearing present Physical Exam Vital Signs: Vital Signs: Last Vital Signs Temp 97.7 F 01/13/22 03:37 Pulse 79 01/13/22 03:37 Resp 18 01/13/22 03:37 BP 136/64 01/13/22 03:37 Pulse Ox 96 01/13/22 03:37 O2 Del Method 01/13/22 03:37 BMI result Body Mass Index 34.1 Const: General: cooperative HEENT: Head: Yes normal to inspection Face and sinus: Yes normal facial exam Mouth: Normal oral and palatal mucosa present Teeth and gingiva: dentition normal Eyes: General: appearance normal, both eyes and all related structures Pupils: Equal, round and reactive pupils present Resp: Effort & Inspection: normal respiratory effort Cardio: Rate: regular rate Rhythm: regular rhythm GI: Palpation (GI): Soft to palpation and nontender : General: Yes no CVA tenderness Back/Spine/Pelvis: Back: no CVA tenderness Skin: General skin exam: no rashes or lesions noted Neuro: General: moves all extremities Cranial nerves: Yes Equal, round and reactive pupils present and Yes Normal hearing present Extrem: Other: lateral right fifth toe area swelling and redness Psych: Appearance: grossly normal Objective Data Active Medications Acetaminophen (Acetaminophen 325 Mg Tablet) 650 mg PO Q6H PRN PRN Reason: Pain, Mild (Pain Scale 1-3) Last Admin: 01/10/22 13:26 Dose: 650 mg Documented By: NARENDRA Amlodipine Besylate (Amlodipine Besylate 5 Mg Tablet) 5 mg PO DAILY [facility]; Protocol Last Admin: 01/13/22 08:14 Dose: 5 mg Documented By: JUAN ANTONIO Aspirin (Aspirin Enteric Coated 81 Mg Tablet.) 81 mg PO DAILY [facility] Last Admin: 01/13/22 08:14 Dose: 81 mg Documented By: JUAN ANTONIO Clonidine HCl (Clonidine Hcl 0.1 Mg Tablet) 0.1 mg PO BID [facility]; Protocol Last Admin: 01/13/22 08:14 Dose: 0.1 mg Documented By: JUAN ANTONIO Clopidogrel Bisulfate (Clopidogrel Bisulfate 75 Mg Tablet) 75 mg PO DAILY [facility] Last Admin: 01/13/22 08:15 Dose: 75 mg Documented By: JUAN ANTONIO Dextrose (Dextrose 50 % 25 Gm/50 Ml Syringe) 25 gm IVPUSH Q15M PRN; Protocol PRN Reason: per Hypoglycemia Standing Ord. Dextrose (Dextrose 50 % 25 Gm/50 Ml Syringe) 25 gm IVPUSH Q15M PRN; Protocol PRN Reason: per Hypoglycemia Standing Ord. Enoxaparin Sodium (Enoxaparin Sodium 40 Mg/0.4 Ml Syringe) 40 mg SUBCUT Q24H [facility] Last Admin: 01/13/22 08:16 Dose: 40 mg Documented By: JUAN ANTONIO Glucose (Glucose Gel 15 Gm Gel..Gram.) 15 gm PO Q15M PRN; Protocol PRN Reason: per Hypoglycemia Standing Ord. Glucose (Glucose Gel 15 Gm Gel..Gram.) 15 gm PO Q15M PRN; Protocol PRN Reason: per Hypoglycemia Standing Ord. Vancomycin HCl 1,250 mg/ (Sodium Chloride) 250 mls @ 166.667 mls/hr IV Q12H [facility] Last Infusion: 01/13/22 00:44 Dose: 0 mls/hr Documented By: ELTONRISErick Insulin Glargine (Insulin Glargine,Hum.Rec.Anlog 100 Unit/Ml 10 Ml Vial) 35 unit SUBCUT DAILY [facility] Last Admin: 01/13/22 08:15 Dose: 35 unit Documented By: JUAN ANTONIO Insulin Human Lispro (Insulin Lispro 100 Unit/Ml 3 Ml Vial) 0 unit SUBCUT QIDACHS [facility]; Protocol Last Admin: 01/13/22 08:15 Dose: 6 unit Documented By: JUAN ANTONIO Insulin Human Lispro (Insulin Lispro 100 Unit/Ml 3 Ml Vial) 5 unit SUBCUT QIDACHS [facility] Last Admin: 01/13/22 08:16 Dose: 5 unit Documented By: JUAN ANTONIO Melatonin (Melatonin 3 Mg Tablet) 6 mg PO BEDTIME PRN PRN Reason: Insomnia Last Admin: 01/10/22 21:13 Dose: 6 mg Documented By: TANISHA Morphine Sulfate (Morphine Sulfate 2 Mg/Ml Cartridge) 2 mg IVPUSH Q4H PRN; Protocol PRN Reason: Pain, Severe (Pain Scale 7-10) Last Admin: 01/13/22 08:26 Dose: 2 mg Documented By: JUAN ANTONIO Ondansetron HCl (Ondansetron Hcl 4 Mg/2 Ml Vial) 4 mg IVPUSH Q8H PRN PRN Reason: Nausea and Vomiting Oxcarbazepine (Oxcarbazepine 300 Mg Tablet) 300 mg PO BEDTIME [facility] Last Admin: 01/12/22 20:22 Dose: 300 mg Documented By: SCOTTY Pharmacy Consult (Consult Rx Vancomycin Dosing) 1 each MISCELLANE DAILY PRN PRN Reason: Consult order Pharmacy Consult (Consult Rx Perform Med Rec) 1 each MISCELLANE ONCE PRN PRN Reason: Consult order Pharmacy Consult (Consult Rx Vancomycin Dosing) 1 each MISCELLANE DAILY PRN PRN Reason: Consult order Risperidone (Risperidone 2 Mg Tablet) 2 mg PO BID [facility] Last Admin: 01/13/22 08:14 Dose: 2 mg Documented By: JUAN ANTONIO Sodium Chloride (0.9 % Sodium Chloride Flush 3 Ml Syringe) 3 ml IVFLUSH QSHIFT [facility] Last Admin: 01/13/22 08:16 Dose: 3 ml Documented By: JUAN ANTONIO Labs CBC & Chem 7: 01/12/22 05:52 01/13/22 05:56 Labs: Laboratory Results - last 24 hr 01/12/22 01/12/22 01/12/22 11:19 16:01 19:49 Estim Creat Clear Calc Estimated GFR POC Glucose 281 H 277 H 355 H* Random Vancomycin 01/12/22 01/13/22 01/13/22 21:25 05:56 07:51 Estim Creat Clear Calc 88.4 Estimated GFR > 60 POC Glucose 269 H Random Vancomycin 16.6 Microbiology Microbiology Results: Microbiology 01/10/22 06:18 Blood Culture - Preliminary Blood - Venous No growth after 48 hours. 01/10/22 06:18 Blood Culture - Preliminary Blood - Venous No growth after 48 hours. 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 toe amputation, essential hypertension, mood disorder who was sent to the ED from [facility] for concern of amputation site infection sepsis due to right 5th toe OM complicated by group b strep bacteremia continue vanc to cover group b strep in blood and MRSA in wound Id appreciated plan for 6 week total vanc (end feb 18, 2022), picc line 01/14/22 vascular appreciated - no surgical intervention at this time DM with hyperglycemia insulin OBEY resolved htn amlodipine clonidine holding lisinopril for obey mood discorder risperdal PVD dapl dvt prophylaxis - lovenox full code reason for continued hospitalization:bacteremia, awaiting clearance for picc Quality Stroke Does the patient have a stroke diagnosis?: No VTE Prior VTE?: No VTE Risk Level:: Medical - moderate - high VTE Device Contraindication: Treatment Not Indicated VTE Drug Contraindication: Treatment Not Indicated
[2022-01-13 11:16] LABS: Glucose, Whole Blood 314 mg/dL (60-115)
[2022-01-13] MEDS: vancomycin HCL 1,250 MG in 0.9 % Sodium Chloride 250 ML 166.67 MG IV (11:27)
[2022-01-13 12:00] VITALS: BP 138/66; PULSE 83; RESP 18; TEMP 36.2; O2SAT 95
[2022-01-13 16:00] VITALS: BP 148/78; PULSE 78; RESP 18; TEMP 36.4; O2SAT 99
[2022-01-13 17:32] LABS: Glucose, Whole Blood 215 mg/dL (60-115)
[2022-01-13 19:48] VITALS: BP 141/65; PULSE 87; RESP 18; TEMP 37.1; O2SAT 98
[2022-01-13] MEDS: OXcarbazepine 300 MG TABLET PO (20:15)
[2022-01-13 20:20] LABS: Glucose, Whole Blood 401 mg/dL (60-115)
[2022-01-13 22:01] LABS: Vancomycin Random 18.3 mcg/mL (15-20)
--- NOTE | 2022-01-13 22:08 | HE.PHANOTE ---
RE VANCO TROUGH HIGHER THAN EXPECTED. WILL LOWER DOSE TO 1 GRAM Q12H. NEXT LEVEL 01/15 @0900. SUSPECTED TROUGH 15 DAMIEN
[2022-01-13] MEDS: vancomycin HCL 1,000 MG in 0.9 % Sodium Chloride 250 ML 270 MG IV (22:51)
[2022-01-14] VITALS: BP 138/63; PULSE 92; RESP 18; TEMP 36.4; O2SAT 98
[2022-01-14 04:00] VITALS: BP 131/63; PULSE 80; RESP 18; TEMP 36.5; O2SAT 99
[2022-01-14 05:36] LABS: Hematocrit 32.2 % (42.0-52.0); Hemoglobin 10.5 g/dl (14.0-18.0); Mean Corpuscular HGB Conc 32.6 g/dl (31.0-36.0); Mean Corpuscular Hemoglobin 25.2 pg (27.0-33.0); Mean Corpuscular Volume 77.2 fL (80.0-98.0); Mean Platelet Volume 10.8 fL (9.4-12.4); Platelet Count 252 X10*3/uL (160-400); Red Blood Count 4.17 X10*6/uL (4.60-5.80); White Blood Count 6.5 X10*3/uL (4.8-10.8)
[2022-01-14 06:01] LABS: Anion Gap 15 (12-20); Blood Urea Nitrogen 18 mg/dL (9-16); Calcium 8.9 mg/dL (8.4-10.2); Carbon Dioxide 24 mmol/L (22-29); Chloride 99 mmol/L (96-108); Creatinine Clr Calc Pharmacy 87.7; Estimated Glomerular Filt Rate > 60; Glucose Fasting 350 mg/dL (60-99); Potassium 4.9 mmol/L (3.3-5.1); Sodium 133 mmol/L (135-145)
[2022-01-14 07:40] LABS: Glucose, Whole Blood 306 mg/dL (60-115)
--- NOTE | 2022-01-14 08:05 | HE.PHANOTE ---
Vancomycin Dosing Addendum Continue with current regimen of 1000 mg q12h. next trough 01/15 @0900
[2022-01-14 08:08] VITALS: BP 153/85; PULSE 87; RESP 17; TEMP 36.9; O2SAT 99
[2022-01-14] MEDS: Insulin Lispro 100 UNIT/ML 3 ML VIAL SUBCUT ×8 (08:40→19:50)
[2022-01-14] MEDS: Insulin Glargine,Hum.rec.anlog 100 UNIT/ML 10 ML VIAL 35 UNIT SUBCUT (08:41)
[2022-01-14] MEDS: Aspirin Enteric Coated 81 MG TABLET.DR PO (08:41)
[2022-01-14] MEDS: amLODIPine Besylate 5 MG TABLET PO (08:42)
[2022-01-14] MEDS: Clopidogrel Bisulfate 75 MG TABLET PO (08:42)
[2022-01-14] MEDS: risperiDONE 2 MG TABLET PO ×2 (08:42→19:52)
[2022-01-14] MEDS: Acetaminophen 325 MG TABLET 650 MG PO (08:42)
[2022-01-14] MEDS: cloNIDine HCL 0.1 MG TABLET PO ×2 (08:42→19:50)
[2022-01-14] MEDS: Enoxaparin Sodium 40 MG/0.4 ML SYRINGE SUBCUT (08:43)
[2022-01-14] MEDS: 0.9 % Sodium Chloride Flush 3 ML SYRINGE IVFLUSH ×2 (08:47→15:52)
[2022-01-14 10:34] VITALS: BP 171/83; PULSE 76; RESP 17; TEMP 37; O2SAT 99
[2022-01-14 10:50] LABS: Glucose, Whole Blood 355 mg/dL (60-115)
--- NOTE | 2022-01-14 11:04 | P.PNIM_ITS ---
Subjective Subjective Date of Service: 01/14/22 Interval History: cc: amp site abscess interval history:no complaints ENT Ears, Nose, Mouth, and Throat: Reports Normal hearing present Cardiovascular Cardiovascular: Reports no additional cardiovascular complaints Respiratory Respiratory: Reports no additional respiratory complaints Neurologic Neurologic: Reports Normal hearing present Physical Exam Vital Signs: Vital Signs: Last Vital Signs Temp 98.6 F 01/14/22 10:34 Pulse 76 01/14/22 10:34 Resp 17 01/14/22 10:34 BP 171/83 H 01/14/22 10:34 Pulse Ox 99 01/14/22 10:34 O2 Del Method 01/14/22 10:34 BMI result Body Mass Index 34.1 Const: General: cooperative HEENT: Head: Yes normal to inspection Face and sinus: Yes normal facial exam Mouth: Normal oral and palatal mucosa present Teeth and gingiva: dentition normal Eyes: General: appearance normal, both eyes and all related structures Pupils: Equal, round and reactive pupils present Resp: Effort & Inspection: normal respiratory effort Cardio: Rate: regular rate Rhythm: regular rhythm GI: Palpation (GI): Soft to palpation and nontender : General: Yes no CVA tenderness Back/Spine/Pelvis: Back: no CVA tenderness Skin: General skin exam: no rashes or lesions noted Neuro: General: moves all extremities Cranial nerves: Yes Equal, round and reactive pupils present and Yes Normal hearing present Extrem: Other: lateral right fifth toe area swelling and redness Psych: Appearance: grossly normal Objective Data Active Medications Acetaminophen (Acetaminophen 325 Mg Tablet) 650 mg PO Q6H PRN PRN Reason: Pain, Mild (Pain Scale 1-3) Last Admin: 01/14/22 08:42 Dose: 650 mg Documented By: NARENDRA Amlodipine Besylate (Amlodipine Besylate 5 Mg Tablet) 5 mg PO DAILY [facility] BEDS AT [facility]; Protocol Last Admin: 01/14/22 08:42 Dose: 5 mg Documented By: NARENDRA Aspirin (Aspirin Enteric Coated 81 Mg Tablet.) 81 mg PO DAILY [facility] 234 BEDS AT [facility] Last Admin: 01/14/22 08:41 Dose: 81 mg Documented By: NARENDRA Clonidine HCl (Clonidine Hcl 0.1 Mg Tablet) 0.1 mg PO BID [facility] 234 BEDS AT [facility]; Protocol Last Admin: 01/14/22 08:42 Dose: 0.1 mg Documented By: NARENDRA Clopidogrel Bisulfate (Clopidogrel Bisulfate 75 Mg Tablet) 75 mg PO DAILY [facility] 234 BEDS AT [facility] Last Admin: 01/14/22 08:42 Dose: 75 mg Documented By: NARENDRA Dextrose (Dextrose 50 % 25 Gm/50 Ml Syringe) 25 gm IVPUSH Q15M PRN; Protocol PRN Reason: per Hypoglycemia Standing Ord. Dextrose (Dextrose 50 % 25 Gm/50 Ml Syringe) 25 gm IVPUSH Q15M PRN; Protocol PRN Reason: per Hypoglycemia Standing Ord. Enoxaparin Sodium (Enoxaparin Sodium 40 Mg/0.4 Ml Syringe) 40 mg SUBCUT Q24H [facility] 234 BEDS AT [facility] Last Admin: 01/14/22 08:43 Dose: 40 mg Documented By: NARENDRA Glucose (Glucose Gel 15 Gm Gel..Gram.) 15 gm PO Q15M PRN; Protocol PRN Reason: per Hypoglycemia Standing Ord. Glucose (Glucose Gel 15 Gm Gel..Gram.) 15 gm PO Q15M PRN; Protocol PRN Reason: per Hypoglycemia Standing Ord. Vancomycin HCl 1,000 mg/ (Sodium Chloride) 270 mls @ 270 mls/hr IV Q12H [facility] 234 BEDS AT [facility] Last Infusion: 01/14/22 00:13 Dose: 0 mls/hr Documented By: ODRISErick Insulin Glargine (Insulin Glargine,Hum.Rec.Anlog 100 Unit/Ml 10 Ml Vial) 35 unit SUBCUT DAILY [facility] 234 BEDS AT [facility] Last Admin: 01/14/22 08:41 Dose: 35 unit Documented By: NARENDRA Insulin Human Lispro (Insulin Lispro 100 Unit/Ml 3 Ml Vial) 0 unit SUBCUT QIDACHS [facility]S [facility]CLUDE 234 BEDS AT THE [facility]; Protocol Last Admin: 01/14/22 08:40 Dose: 8 unit Documented By: NARENDRA Insulin Human Lispro (Insulin Lispro 100 Unit/Ml 3 Ml Vial) 5 unit SUBCUT QIDACHS [facility]S [facility]CLUDE 234 BEDS AT THE [facility] Last Admin: 01/14/22 08:41 Dose: 5 unit Documented By: NAERNDRA Melatonin (Melatonin 3 Mg Tablet) 6 mg PO BEDTIME PRN PRN Reason: Insomnia Last Admin: 01/10/22 21:13 Dose: 6 mg Documented By: TANISHA Ondansetron HCl (Ondansetron Hcl 4 Mg/2 Ml Vial) 4 mg IVPUSH Q8H PRN PRN Reason: Nausea and Vomiting Oxcarbazepine (Oxcarbazepine 300 Mg Tablet) 300 mg PO BEDTIME COUNTS INCLUDE 234 BEDS AT THE [facility] Last Admin: 01/13/22 20:15 Dose: 300 mg Documented By: SCOTTY Pharmacy Consult (Consult Rx Vancomycin Dosing) 1 each MISCELLANE DAILY PRN PRN Reason: Consult order Pharmacy Consult (Consult Rx Perform Med Rec) 1 each MISCELLANE ONCE PRN PRN Reason: Consult order Pharmacy Consult (Consult Rx Vancomycin Dosing) 1 each MISCELLANE DAILY PRN PRN Reason: Consult order Risperidone (Risperidone 2 Mg Tablet) 2 mg PO BID [facility]S [facility]CLUDE 234 BEDS AT [facility] Last Admin: 01/14/22 08:42 Dose: 2 mg Documented By: NARENDRA Sodium Chloride (0.9 % Sodium Chloride Flush 3 Ml Syringe) 3 ml IVFLUSH QSHIFT COUNTS INCLUDE 234 BEDS AT THE [facility] Last Admin: 01/14/22 08:47 Dose: 3 ml Documented By: NARENDRA Labs CBC & Chem 7: 01/14/22 05:17 01/14/22 05:17 Labs: Laboratory Results - last 24 hr 01/13/22 01/13/22 01/13/22 11:08 17:25 20:09 MCV MCH MCHC RDW Plt Count MPV Absolute Nucleated RBC Nucleated RBC % (auto) Anion Gap Estim Creat Clear Calc Estimated GFR POC Glucose 314 H 215 H 401 H* Fasting Glucose Calcium Random Vancomycin 01/13/22 01/14/22 01/14/22 21:20 05:17 05:17 MCV 77.2 L MCH 25.2 L MCHC 32.6 RDW 13.0 Plt Count 252 MPV 10.8 Absolute Nucleated RBC 0.000 Nucleated RBC % (auto) 0.0 Anion Gap 15 Estim Creat Clear Calc 87.7 Estimated GFR > 60 POC Glucose Fasting Glucose 350 H* Calcium 8.9 Random Vancomycin 18.3 01/14/22 01/14/22 07:28 10:44 MCV MCH MCHC RDW Plt Count MPV Absolute Nucleated RBC Nucleated RBC % (auto) Anion Gap Estim Creat Clear Calc Estimated GFR POC Glucose 306 H 355 H* Fasting Glucose Calcium Random Vancomycin Microbiology Microbiology Results: Microbiology 01/08/22 Unknown Blood Culture - Final Blood - Venous No growth after 5 days. 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 toe amputation, essential hypertension, mood disorder who was sent to the ED from [facility] for concern of amputation site infection sepsis due to right 5th toe OM complicated by group b strep bacteremia continue vanc to cover group b strep in blood and MRSA in wound Id appreciated plan for 6 week total vanc (end feb 18, 2022), picc line 01/14/22 vascular appreciated - no surgical intervention at this time, continue local care DM with hyperglycemia insulin OBEY resolved htn amlodipine clonidine holding lisinopril for obey mood discorder risperdal PVD dapl dvt prophylaxis - lovenox full code reason for continued hospitalization:awaiting clearance for picc Quality Stroke Does the patient have a stroke diagnosis?: No VTE Prior VTE?: No VTE Risk Level:: Medical - moderate - high VTE Device Contraindication: Treatment Not Indicated VTE Drug Contraindication: Treatment Not Indicated
[2022-01-14] MEDS: vancomycin HCL 1,000 MG in 0.9 % Sodium Chloride 250 ML 270 MG IV ×2 (11:18→23:16)
[2022-01-14] MEDS: Morphine Sulfate 2 MG/ML CARTRIDGE IVPUSH ×3 (11:46→19:57)
--- NOTE | 2022-01-14 12:04 | HO.VASCPN ---
Subjective Subjective Date of Service: 01/14/22 Patient reports: no new complaints and feels better Interval history: Patient seen and examined. No significant events. Appears to be doing relatively well. Reports pain has decreased. No events over the past weekend. Physical Exam Vital Signs: Vital Signs: Last Vital Signs Temp 98.6 F 01/14/22 10:34 Pulse 76 01/14/22 10:34 Resp 17 01/14/22 10:34 BP 171/83 H 01/14/22 10:34 Pulse Ox 99 01/14/22 10:34 O2 Del Method 01/14/22 10:34 BMI result Body Mass Index 34.1 Const: General: cooperative, healthy appearing and no acute distress Orientation/consciousness: oriented to person, oriented to place and oriented to time HEENT: Head: Yes normal to inspection Neck: Carotids: no bruits Chest: Chest palpation & inspection: normal inspection of the chest Resp: Effort & Inspection: normal respiratory effort and able to speak in complete sentences Auscultation: clear to auscultation bilaterally Cardio: Rate: regular rate Heart sounds: S1 normal heart sound present and S2 normal heart sound present GI: Inspection: Yes normal to inspection Skin: Other: Right foot wound opening packing was removed and changed. Significant improvement in overall drainage. There is some purulent material but it has significantly decreased. General skin exam: no rashes or lesions noted Wounds: wounds noted Neuro: General: oriented to person, oriented to place, oriented to time and CN's II-XI intact bilaterally Extrem: General: Yes normal to inspection, Yes full ROM and Yes no clubbing, cyanosis or edema Psych: Appearance: grossly normal and well kempt Speech and movement: Normal speech and movement present Affect: normal affect Progress Note: A&P Assessment and plan (1) Wound of right foot: Status: Acute Assessment and Plan: In short patient doing well in terms of right foot wound. Will continue local wound care with packing changes. He will need long-term IV antibiotics. Stable from our perspective for discharge. Will continue to follow-up. (2) PAD (peripheral artery disease): Status: Acute Time Spent With Patient Time: Total time spent is greater than 50% in coordination of care (as documented) at patient's floor/unit and/or counseling patient: Procedures Date of Service Date of Service: 01/14/22 Quality Stroke Does the patient have a stroke diagnosis?: No VTE Prior VTE?: No VTE Risk Level:: Medical - moderate - high VTE Device Contraindication: Treatment Not Indicated VTE Drug Contraindication: Treatment Not Indicated
--- NOTE | 2022-01-14 12:40 | MHC.CM.PN ---
EMR REVIEWED, PT WILL NEED 6 WKS IV ABX, PT ACTIVE W/[facility] AND REFERRALS SENT TO [facility], CM ATTEMPTED TO CONTACT AMANDA PIPER [phone] TO SEE IF SHE COULD COME IN FOR A TEACH HOWEVER NO ANSWER AND MESSAGE LEFT. CM AWAITING RETURN CALL. TWO ADMITS AGO FELIZ WAS BRINGING PT TO [facility] DAILY FOR IV ABX D/T PT NOT HAVING A PCP HOWEVER IS NOW ACTIVE W/BRANDON ADAMS
[2022-01-14 15:40] VITALS: BP 156/81; PULSE 86; RESP 18; TEMP 36.5; O2SAT 100
[2022-01-14 16:33] LABS: Glucose, Whole Blood 254 mg/dL (60-115)
[2022-01-14 19:33] VITALS: BP 184/71; PULSE 92; RESP 18; TEMP 36.8; O2SAT 96
[2022-01-14] MEDS: OXcarbazepine 300 MG TABLET PO (19:50)
[2022-01-14 19:57] LABS: Glucose, Whole Blood 435 mg/dL (60-115)
[2022-01-15] VITALS: BP 139/65; PULSE 82; RESP 18; TEMP 36.4; O2SAT 98
[2022-01-15 04:00] VITALS: BP 126/63; PULSE 83; RESP 18; TEMP 36.8; O2SAT 97
[2022-01-15 05:38] LABS: Estimated Glomerular Filt Rate 52
[2022-01-15 07:22] VITALS: BP 141/82; PULSE 84; RESP 18; TEMP 37.3; O2SAT 97
[2022-01-15 07:33] LABS: Glucose, Whole Blood 338 mg/dL (60-115)
[2022-01-15] MEDS: Insulin Lispro 100 UNIT/ML 3 ML VIAL SUBCUT ×6 (08:04→16:43)
[2022-01-15] MEDS: Insulin Glargine,Hum.rec.anlog 100 UNIT/ML 10 ML VIAL 35 UNIT SUBCUT (08:05)
[2022-01-15] MEDS: Enoxaparin Sodium 40 MG/0.4 ML SYRINGE SUBCUT (08:06)
[2022-01-15] MEDS: risperiDONE 2 MG TABLET PO (08:07)
[2022-01-15] MEDS: cloNIDine HCL 0.1 MG TABLET PO (08:07)
[2022-01-15] MEDS: Aspirin Enteric Coated 81 MG TABLET.DR PO (08:07)
[2022-01-15] MEDS: 0.9 % Sodium Chloride Flush 3 ML SYRINGE IVFLUSH ×2 (08:08→16:38)
[2022-01-15] MEDS: amLODIPine Besylate 5 MG TABLET PO (08:08)
[2022-01-15] MEDS: Clopidogrel Bisulfate 75 MG TABLET PO (08:45)
--- NOTE | 2022-01-15 08:55 | PM.DS ---
DS: Providers Provider Date of Service: 01/15/22 Date of admission: 01/08/22 23:24 Primary care physician: Mariel Mendez NP Consults: 01/08/22 23:47 Consult to Vascular Surgery Routine Consulting Provider: Angel Holt Reason for consultation: osteomyelitis 01/09/22 09:31 Consult to Infectious Diseases Routine Consulting Provider: Lani Mcclellan Reason for consultation: ?OM DS: Diagnosis Discharge Diagnosis (1) Wound of right foot: Status: Acute (2) PAD (peripheral artery disease): Status: Acute DS: Summary Hospital Course Hospital Course: from initial hpi: Chief Complaint: Right toe infection This is a 51-year-old male with a pertinent history of insulin-dependent diabetes mellitus, CAD status post right 5th toe amputation, essential hypertension, mood disorder who was sent to the ED from Wound Care for concern of amputation site infection.? Patient states he noticed that the wound has been worsening for the last 5 days.? It is associated with swelling, redness and purulent drainage.? Patient also has been having foot pain.? Culture of the purulent fluid was obtained at wound care today.? Patient admits fever, denies chills, nausea, vomiting, chest discomfort, abdominal discomfort, changes in urinary or bowel habits.? Patient is currently not on antibiotic.? Patient was recently admitted for right 5th toe amputation by Dr. Holt about 1 month ago. In the emergency department, x-ray was concerning for osteomyelitis.? Dr. Holt, vascular surgery was consulted who recommended admission with IV antibiotics hospital course: Patient was admitted for sepsis due to right 5th toe osteomyelitis complicated by group B strep bacteremia due to diabetes. He was also noted to have MRSA and group B strep in his wound. He was seen by infectious disease recommended 6 weeks total of IV vancomycin to and 02/18/2022 Possibly followed by oral antibiotics. He was seen by vascular who recommended local care at this time. patient's diabetes was complicated by hyperglycemia. He was treated with basal bolus insulin. Patient presented with acute kidney injury which resolved. Patient's hypertension he was continued on amlodipine and clonidine. He can restart lisinopril on discharge. For his mood disorder he will continue Risperdal. For peripheral vascular disease he was continued on dual antiplatelet. Patient will be discharged home. Time Spent with Patient Time attestation: Total time spent providing and/or coordinating discharge services: Discharge coordination time: Greater than 30 minutes Quality: Safe Use of Opioids Does Pt have an Active Cancer Diagnosis on the Problem List?: No Quality: Stroke Does the patient have a stroke diagnosis?: No Physical Exam Vital Signs: Vital Signs: Last Vital Signs Temp 99.1 F 01/15/22 07:22 Pulse 84 01/15/22 07:22 Resp 18 01/15/22 07:22 BP 141/82 H 01/15/22 07:22 Pulse Ox 97 01/15/22 07:22 O2 Del Method 01/15/22 07:22 BMI result Body Mass Index 34.1 Const: General: cooperative, healthy appearing and no acute distress Orientation/consciousness: oriented to person, oriented to place and oriented to time HEENT: Head: Yes normal to inspection Neck: Carotids: no bruits Chest: Chest palpation & inspection: normal inspection of the chest Resp: Effort & Inspection: normal respiratory effort and able to speak in complete sentences Auscultation: clear to auscultation bilaterally Cardio: Rate: regular rate Heart sounds: S1 normal heart sound present and S2 normal heart sound present GI: Inspection: Yes normal to inspection Skin: Other: Right foot wound opening packing was removed and changed. Significant improvement in overall drainage. There is some purulent material but it has significantly decreased. General skin exam: no rashes or lesions noted Wounds: wounds noted Neuro: General: oriented to person, oriented to place, oriented to time and CN's II-XI intact bilaterally Extrem: General: Yes normal to inspection, Yes full ROM and Yes no clubbing, cyanosis or edema Psych: Appearance: grossly normal and well kempt Speech and movement: Normal speech and movement present Affect: normal affect DS: Data Data Completed and Pending Completed studies during hospitalization [Text1]: Procedures Detachment at Right 5th Toe, Complete, Open Approach (11/24/21) Dilation of Right Anterior Tibial Artery using Drug-Coated Balloon, Percutaneous Approach (11/24/21) Dilation of Right Posterior Tibial Artery using Drug-Coated Balloon, Percutaneous Approach (09/06/21) Drainage of Scalp Skin, External Approach (11/24/21) Insertion of Infusion Device into Superior Vena Cava, Percutaneous Approach (09/06/21) Ultrasonography of Superior Vena Cava, Guidance (09/06/21) Labs on day of discharge: Laboratory Results - last 24 hr 01/14/22 01/14/22 01/14/22 10:44 15:42 19:36 Creatinine Estim Creat Clear Calc Estimated GFR POC Glucose 355 H* 254 H 435 H* 01/15/22 01/15/22 05:15 07:28 Creatinine 1.43 H Estim Creat Clear Calc 76.0 Estimated GFR 52 POC Glucose 338 H Preliminary micro results at discharge 01/10/22 06:18 Blood Culture - Preliminary Blood - Venous No growth after 48 hours. 01/10/22 06:18 Blood Culture - Preliminary Blood - Venous No growth after 48 hours. Discharge Plan Discharge Anticipated Discharge Date/Time: 01/15/22 08:50 Patient Disposition: Home Health Service Discharge Diagnosis: OM Referrals: Janice SANCHEZ [Outside] - 1 Day () Mariel Mendez NP [Primary Care Provider] - 1 Week Discharge Medications: New vancomycin 1,000 mg recon soln 1,000 mg IV Q12H Qty: 10 0RF Rx Instructions: end feb 18, 2022 oxycodone 5 mg capsule 5 mg PO TID PRN (Reason: moderate pain (scale score 5-6)) Qty: 30 0RF Rx Instructions: Partial Fill upon patient request. Continued Humulin 70/30 U-100 Insulin 100 unit/mL (70-30) suspension 50 unit subcut QPM amlodipine 5 mg tablet 5 mg PO DAILY 30 Days Qty: 30 8RF Protocol: Hold for SBP< HOLD for SBP < : 90 aspirin 81 mg tablet,delayed release (DR/EC) 81 mg PO DAILY 30 Days Qty: 30 8RF clonidine HCl 0.1 mg tablet 0.1 mg PO BID Qty: 60 8RF clopidogrel 75 mg tablet 75 mg PO DAILY 30 Days Qty: 30 11RF Rx Instructions: stent placed 09/05/21 will need for one year or longer Humulin 70/30 U-100 Insulin 100 unit/mL (70-30) suspension 45 unit SUBCUT QAM 30 Days Qty: 13.5 8RF lisinopril 10 mg tablet 20 mg PO DAILY Qty: 60 8RF oxcarbazepine 300 mg tablet 300 mg PO BEDTIME Qty: 30 8RF risperidone [Risperdal] 2 mg tablet 2 mg PO BID Qty: 60 8RF (DME) cane Device See Rx Instructions .Route Qty: 1 0RF Rx Instructions: As directed Discontinued doxycycline hyclate 100 mg tablet 1 tab PO BID Discharge Orders: Discharge Order (Routine); Ordered 01/15/22 Ordered By: Serafin Carmichael Diet: Diabetic diet Activity on Discharge: As tolerated Stand Alone Forms: Patient Portal Discharge page Activity Restrictions/Additional Instructions: Per Dr Holt, pack lateral aspect of wound with one inch iodoform cover with 4x4 cover with kerlix wrapp daily Care Plan Goals: recovery Health Concerns: DFU, OM Plan of Treatment: vanc until feb 18, 2022, follow up wound care, ID, weekly labs Assessment: see above
[2022-01-15] MEDS: Morphine Sulfate 2 MG/ML CARTRIDGE IVPUSH ×2 (09:18→16:37)
[2022-01-15 10:51] LABS: Vancomycin Trough 14.7 mcg/mL (10.0-20.0)
[2022-01-15] MEDS: vancomycin HCL 1,000 MG in 0.9 % Sodium Chloride 250 ML 270 MG IV ×2 (10:57→18:42)
[2022-01-15 11:25] VITALS: BP 132/71; PULSE 83; RESP 18; TEMP 36.6; O2SAT 96
[2022-01-15 11:40] LABS: Glucose, Whole Blood 337 mg/dL (60-115)
--- NOTE | 2022-01-15 14:36 | MHC.CM.PN ---
PT MEDICALLY CLEAED FOR D/C, AMANDA PIPER HAD TEACH W/[facility] AT BEDSIDE THIS AM, PT WILL D/C W/RESUMP OF [facility] AND [facility] W/DELIVERY OF IV ABX BY [facility]M [facility] AND SOC W/[facility] BETWEEN 8-10AM TOMORROW MORNING. PT WILL D/C AFTER DOSE OF VANCO RESCHEDULED FOR 7PM AND [facility] WILL TRANSPORT PT HOME AT 8PM
[2022-01-15 15:14] VITALS: BP 151/69; PULSE 80; RESP 13; TEMP 36.3; O2SAT 98
[2022-01-15 16:15] LABS: Glucose, Whole Blood 309 mg/dL (60-115)
[2022-01-15] MEDS: Acetaminophen 325 MG TABLET 650 MG PO (16:37)
[2022-01-15 19:18] VITALS: BP 182/88; PULSE 74; RESP 18; TEMP 36.2; O2SAT 98
== END 2022-01-15 20:03 | disposition home health service (06) | DRG 349 ==
LOC: HO.ED 22:47 → HO.EDOVER 23:47 → HO.S3 01-09 19:03
PROVIDERS: Hospitalist; Nurse Practitioner Family; Radiology Diagnostic Radiology; Admitting Provider Student in an Organized Health Care Education/Training Program; Emergency Provider Emergency Medicine; PCP Hospitalist; Visit Provider Internal Medicine
PROC: 02HV33Z Insertion of Infusion Device into Superior Vena Cava, Percutaneous Approach (ICD-10-PCS; principal; 2022-01-14 14:10)
DX: T87.43 Infection of amputation stump, right lower extremity (principal); A41.9 Sepsis, unspecified organism; N17.9 Acute kidney failure, unspecified; F25.9 Schizoaffective disorder, unspecified; E87.1 Hypo-osmolality and hyponatremia; M86.9 Osteomyelitis, unspecified; E11.69 Type 2 diabetes mellitus with other specified complication; E11.65 Type 2 diabetes mellitus with hyperglycemia; E11.51 Type 2 diabetes mellitus with diabetic peripheral angiopathy without gangrene; I10 Essential (primary) hypertension; B95.1 Streptococcus, group B, as the cause of diseases classified elsewhere; Y83.5 Amputation of limb(s) as the cause of abnormal reaction of the patient, or of later complication, without mention of misadventure at the time of the procedure; Z20.822 Contact with and (suspected) exposure to COVID-19; Z87.891 Personal history of nicotine dependence; Z79.4 Long term (current) use of insulin; Z79.02 Long term (current) use of antithrombotics/antiplatelets; Z79.82 Long term (current) use of aspirin; Z79.899 Other long term (current) drug therapy
CPT/HCPCS: 36415; 36573; 73630; 76937; 80048; 80053; 80202; 82565; 82947; 83036; 83605; 83735; 85025; 85027; 87040; 87147; 87186; 87205; 87635; 96365; 96375; 99285; C1751; J0692; J1650; J2270; J2543; J3370

== ENCOUNTER 2022-01-16 12:11 | Outpatient (REF) | payer OTHER, SELFPAY ==
[2022-01-16 12:16] LABS: MANUAL DIFF FLAG NO
[2022-01-16 12:25] LABS: Basophils Percent Auto 0.4 % (0-2); Eosinophils Absolute Auto 0.2 X10*3/uL (0.0-0.4); Eosinophils Percent Auto 1.9 % (0-4); Hematocrit 35.7 % (42.0-52.0); Hemoglobin 11.6 g/dl (14.0-18.0); Imm Gran Abs Auto 0.07 X10*3/uL (0.00-0.03); Imm Gran Pct Auto 0.8 % (0.0-0.4); Lymphocytes Absolute Auto 1.2 X10*3/uL (1.2-4.9); Lymphocytes Percent Auto 14.4 % (20-40); Mean Corpuscular HGB Conc 32.5 g/dl (31.0-36.0); Mean Corpuscular Volume 76.9 fL (80.0-98.0); Mean Platelet Volume 10.9 fL (9.4-12.4); Monocytes Absolute Auto 0.6 X10*3/uL (0.1-1.2); Monocytes Percent Auto 7.4 % (2-11); Neutrophils Absolute Auto 6.3 x10*3/uL (2.0-8.3); Neutrophils Percent Auto 75.1 % (45-73); Platelet Count 297 X10*3/uL (160-400); Red Blood Count 4.64 X10*6/uL (4.60-5.80); Red Cell Distribution Width 13.3 % (11.0-16.0); White Blood Count 8.4 X10*3/uL (4.8-10.8)
[2022-01-16 13:39] LABS: Anion Gap 15 (12-20); Blood Urea Nitrogen 20 mg/dL (9-16); Calcium 9.2 mg/dL (8.4-10.2); Carbon Dioxide 26 mmol/L (22-29); Chloride 98 mmol/L (96-108); Estimated Glomerular Filt Rate 58; Glucose Random 286 mg/dL (60-115); Potassium 4.4 mmol/L (3.3-5.1); Sodium 135 mmol/L (135-145)
[2022-01-16 14:09] LABS: Vancomycin Trough 11.6 mcg/mL (10.0-20.0)
== END 2022-01-16 12:12 | disposition home or self-care (01) ==
LOC: HO.HVNA 12:11
PROVIDERS: Visit Provider Internal Medicine
DX: T87.81 Dehiscence of amputation stump (principal); Z79.899 Other long term (current) drug therapy
CPT/HCPCS: 80048; 80202; 85025

== ENCOUNTER 2022-01-23 11:25 | Outpatient (REF) | payer OTHER, SELFPAY ==
[2022-01-23 11:31] LABS: MANUAL DIFF FLAG NO
[2022-01-23 11:37] LABS: Basophils Absolute Auto 0.1 X10*3/uL (0.0-0.2); Basophils Percent Auto 0.7 % (0-2); Eosinophils Absolute Auto 0.2 X10*3/uL (0.0-0.4); Eosinophils Percent Auto 2.3 % (0-4); Hematocrit 36.8 % (42.0-52.0); Hemoglobin 12.1 g/dl (14.0-18.0); Imm Gran Abs Auto 0.05 X10*3/uL (0.00-0.03); Imm Gran Pct Auto 0.7 % (0.0-0.4); Lymphocytes Absolute Auto 1.4 X10*3/uL (1.2-4.9); Lymphocytes Percent Auto 20.1 % (20-40); Mean Corpuscular HGB Conc 32.9 g/dl (31.0-36.0); Mean Corpuscular Hemoglobin 25.2 pg (27.0-33.0); Mean Corpuscular Volume 76.7 fL (80.0-98.0); Mean Platelet Volume 10.4 fL (9.4-12.4); Monocytes Absolute Auto 0.5 X10*3/uL (0.1-1.2); Monocytes Percent Auto 7.5 % (2-11); Neutrophils Absolute Auto 4.9 x10*3/uL (2.0-8.3); Neutrophils Percent Auto 68.7 % (45-73); Platelet Count 302 X10*3/uL (160-400); White Blood Count 7.1 X10*3/uL (4.8-10.8)
[2022-01-23 12:20] LABS: Vancomycin Trough 13.7 mcg/mL (10.0-20.0)
[2022-01-23 12:37] LABS: Anion Gap 14 (12-20); Blood Urea Nitrogen 15 mg/dL (9-16); Calcium 9.4 mg/dL (8.4-10.2); Carbon Dioxide 26 mmol/L (22-29); Chloride 99 mmol/L (96-108); Estimated Glomerular Filt Rate > 60; Glucose Random 292 mg/dL (60-115); Potassium 5.1 mmol/L (3.3-5.1); Sodium 134 mmol/L (135-145)
== END 2022-01-23 11:26 | disposition home or self-care (01) ==
LOC: HO.HVNA 11:25
PROVIDERS: Visit Provider Internal Medicine
DX: T87.43 Infection of amputation stump, right lower extremity (principal); Z79.2 Long term (current) use of antibiotics
CPT/HCPCS: 36415; 80048; 80202; 85025

== ENCOUNTER 2022-01-31 14:30 | Outpatient (REF) | payer OTHER, SELFPAY ==
[2022-01-31 14:36] LABS: MANUAL DIFF FLAG NO
[2022-01-31 14:41] LABS: Basophils Absolute Auto 0.1 X10*3/uL (0.0-0.2); Basophils Percent Auto 0.7 % (0-2); Eosinophils Absolute Auto 0.1 X10*3/uL (0.0-0.4); Eosinophils Percent Auto 1.9 % (0-4); Hematocrit 37.4 % (42.0-52.0); Hemoglobin 12.3 g/dl (14.0-18.0); Imm Gran Abs Auto 0.03 X10*3/uL (0.00-0.03); Imm Gran Pct Auto 0.4 % (0.0-0.4); Lymphocytes Absolute Auto 1.3 X10*3/uL (1.2-4.9); Lymphocytes Percent Auto 18.7 % (20-40); Mean Corpuscular HGB Conc 32.9 g/dl (31.0-36.0); Mean Platelet Volume 10.9 fL (9.4-12.4); Monocytes Absolute Auto 0.5 X10*3/uL (0.1-1.2); Monocytes Percent Auto 7.3 % (2-11); Platelet Count 255 X10*3/uL (160-400); Red Blood Count 4.92 X10*6/uL (4.60-5.80); Red Cell Distribution Width 13.3 % (11.0-16.0)
[2022-01-31 15:02] LABS: Vancomycin Trough 10.8 mcg/mL (10.0-20.0)
[2022-01-31 15:15] LABS: Anion Gap 14 (12-20); Blood Urea Nitrogen 18 mg/dL (9-16); Calcium 9.3 mg/dL (8.4-10.2); Carbon Dioxide 26 mmol/L (22-29); Chloride 97 mmol/L (96-108); Estimated Glomerular Filt Rate 55; Glucose Random 399 mg/dL (60-115); Potassium 4.7 mmol/L (3.3-5.1); Sodium 132 mmol/L (135-145)
== END 2022-01-31 14:31 | disposition home or self-care (01) ==
LOC: HO.HVNA 14:30
PROVIDERS: Visit Provider Internal Medicine
DX: A49.01 Methicillin susceptible Staphylococcus aureus infection, unspecified site (principal); Z79.2 Long term (current) use of antibiotics
CPT/HCPCS: 36415; 80048; 80202; 85025

== ENCOUNTER → 2022-02-05 15:03 | Outpatient (BNVA) | payer OTHER, SELFPAY | PROVIDERS: PCP Hospitalist; Visit Provider Surgery Vascular Surgery | DX: Z47.81 Encounter for orthopedic aftercare following surgical amputation (principal); I73.9 Peripheral vascular disease, unspecified; Z89.421 Acquired absence of other right toe(s) | CPT/HCPCS: 99212 ==

== ENCOUNTER 2022-02-06 11:08 | Outpatient (REF) | payer OTHER, SELFPAY ==
[2022-02-06 11:11] LABS: MANUAL DIFF FLAG NO
[2022-02-06 11:19] LABS: Basophils Absolute Auto 0.1 X10*3/uL (0.0-0.2); Eosinophils Absolute Auto 0.2 X10*3/uL (0.0-0.4); Eosinophils Percent Auto 2.2 % (0-4); Hematocrit 39.5 % (42.0-52.0); Imm Gran Abs Auto 0.05 X10*3/uL (0.00-0.03); Imm Gran Pct Auto 0.6 % (0.0-0.4); Lymphocytes Absolute Auto 2.1 X10*3/uL (1.2-4.9); Lymphocytes Percent Auto 25.2 % (20-40); Mean Corpuscular HGB Conc 32.9 g/dl (31.0-36.0); Mean Corpuscular Hemoglobin 25.2 pg (27.0-33.0); Mean Corpuscular Volume 76.6 fL (80.0-98.0); Mean Platelet Volume 10.6 fL (9.4-12.4); Monocytes Absolute Auto 0.7 X10*3/uL (0.1-1.2); Monocytes Percent Auto 8.4 % (2-11); Neutrophils Absolute Auto 5.1 x10*3/uL (2.0-8.3); Neutrophils Percent Auto 62.6 % (45-73); Platelet Count 231 X10*3/uL (160-400); Red Blood Count 5.16 X10*6/uL (4.60-5.80); Red Cell Distribution Width 13.4 % (11.0-16.0); White Blood Count 8.1 X10*3/uL (4.8-10.8)
[2022-02-06 11:56] LABS: Anion Gap 13 (12-20); Blood Urea Nitrogen 17 mg/dL (9-16); Calcium 9.2 mg/dL (8.4-10.2); Carbon Dioxide 25 mmol/L (22-29); Chloride 101 mmol/L (96-108); Estimated Glomerular Filt Rate 59; Glucose Random 263 mg/dL (60-115); Potassium 4.5 mmol/L (3.3-5.1); Sodium 134 mmol/L (135-145)
[2022-02-06 11:58] LABS: Vancomycin Trough 15.3 mcg/mL (10.0-20.0)
== END 2022-02-06 11:09 | disposition home or self-care (01) ==
LOC: HO.HVNA 11:08
PROVIDERS: Visit Provider Internal Medicine
DX: Z79.899 Other long term (current) drug therapy (principal); A49.01 Methicillin susceptible Staphylococcus aureus infection, unspecified site
CPT/HCPCS: 36415; 80048; 80202; 85025

== ENCOUNTER 2022-02-13 12:36 | Outpatient (REF) | payer OTHER, SELFPAY ==
[2022-02-13 12:42] LABS: MANUAL DIFF FLAG NO
[2022-02-13 12:46] LABS: Basophils Absolute Auto 0.1 X10*3/uL (0.0-0.2); Basophils Percent Auto 0.7 % (0-2); Eosinophils Absolute Auto 0.2 X10*3/uL (0.0-0.4); Eosinophils Percent Auto 1.8 % (0-4); Hematocrit 40.6 % (42.0-52.0); Hemoglobin 13.3 g/dl (14.0-18.0); Imm Gran Abs Auto 0.03 X10*3/uL (0.00-0.03); Imm Gran Pct Auto 0.4 % (0.0-0.4); Lymphocytes Absolute Auto 1.9 X10*3/uL (1.2-4.9); Lymphocytes Percent Auto 23.2 % (20-40); Mean Corpuscular HGB Conc 32.8 g/dl (31.0-36.0); Mean Corpuscular Volume 76.2 fL (80.0-98.0); Mean Platelet Volume 11.1 fL (9.4-12.4); Monocytes Absolute Auto 0.5 X10*3/uL (0.1-1.2); Monocytes Percent Auto 6.1 % (2-11); Neutrophils Absolute Auto 5.7 x10*3/uL (2.0-8.3); Neutrophils Percent Auto 67.8 % (45-73); Platelet Count 240 X10*3/uL (160-400); Red Blood Count 5.33 X10*6/uL (4.60-5.80); Red Cell Distribution Width 13.7 % (11.0-16.0); White Blood Count 8.4 X10*3/uL (4.8-10.8)
[2022-02-13 13:19] LABS: Vancomycin Trough 8.6 mcg/mL (10.0-20.0)
[2022-02-13 13:52] LABS: Anion Gap 14 (12-20); Blood Urea Nitrogen 18 mg/dL (9-16); Calcium 9.6 mg/dL (8.4-10.2); Carbon Dioxide 25 mmol/L (22-29); Chloride 97 mmol/L (96-108); Estimated Glomerular Filt Rate 55; Sodium 131 mmol/L (135-145)
[2022-02-13 15:20] LABS: Glucose Random 367 mg/dL (60-115)
== END 2022-02-13 12:37 | disposition home or self-care (01) ==
LOC: HO.HVNA 12:36
PROVIDERS: Visit Provider Internal Medicine
DX: A49.02 Methicillin resistant Staphylococcus aureus infection, unspecified site (principal)
CPT/HCPCS: 36415; 80048; 80202; 85025

== ENCOUNTER → 2022-02-18 11:35 | Outpatient (BNVA) | payer OTHER, SELFPAY | PROVIDERS: PCP Hospitalist; Visit Provider Internal Medicine | DX: S91.301A Unspecified open wound, right foot, initial encounter (principal); M86.9 Osteomyelitis, unspecified; E11.9 Type 2 diabetes mellitus without complications | CPT/HCPCS: 99212 ==

== ENCOUNTER → 2022-02-26 15:03 | Outpatient (BNVA) | payer OTHER, SELFPAY | PROVIDERS: PCP Hospitalist; Visit Provider Surgery Vascular Surgery | DX: Z47.81 Encounter for orthopedic aftercare following surgical amputation (principal); I73.9 Peripheral vascular disease, unspecified; Z89.431 Acquired absence of right foot | CPT/HCPCS: 99212 ==

== ENCOUNTER 2022-04-01 13:34 | Outpatient (REF) | payer OTHER, SELFPAY ==
--- NOTE | ~2022-04-01 | US_ITS ---
EXAMINATION: NONINVASIVE ASSESSMENT OF THE ARTERIES OF BOTH LOWER EXTREMITIES WITH PVR EXAM AND BILATERAL LOWER EXTREMITY DUPLEX Janeth Oneal MD CLINICAL INFORMATION: Peripheral vascular disease TECHNIQUE: Ankle pulse volume recordings, ankle pressure measurements and ankle brachial indices were obtained of the lower extremity arterial system bilaterally in addition to duplex Doppler techniques with wave form analysis and measurement of velocities in the common femoral, profunda femoral, superficial femoral, popliteal and tibial arteries. The study was performed only at rest. COMPARISON: Noninvasive arterial exam on 11/26/2021 FINDINGS: a) AT REST: RIGHT LE. The right ankle-brachial index is: 1.20 * >0.97-1.25 = normal - no significant arterial disease * 0.75-0.96 = mild peripheral arterial disease * 0.5-0.74 = moderate peripheral arterial disease * <0.50 = severe peripheral arterial disease 2. Right ankle pressure: Elevated 3. Right ankle PVR waveform: Abnormal 4. Right direct duplex Doppler findings: Common femoral artery: 119 cm/s, Multiphasic Profunda femoris artery: 137 cm/s, Multiphasic Superficial femoral artery (proximal): 112 cm/s, Multiphasic Superficial femoral artery (mid): 127 cm/s, Multiphasic Superficial femoral artery (distal): 94 cm/s, Multiphasic Proximal Popliteal artery: 91 cm/s, Multiphasic Mid posterior tibial artery: 108 cm/s, Multiphasic Peroneal artery: Occluded LEFT LE. The left ankle-brachial index is: 1.20 * >0.97-1.25 = normal - no significant arterial disease * 0.75-0.96 = mild peripheral arterial disease * 0.5-0.74 = moderate peripheral arterial disease * <0.50 = severe peripheral arterial disease 2. Left ankle pressure: Elevated 3. Left ankle PVR waveform: normal. 4. Left direct duplex Doppler findings: Common femoral artery: 90 cm/s, Multiphasic Profunda femoris artery: 96 cm/s, Multiphasic Superficial femoral artery (proximal): 163 cm/s, Multiphasic Superficial femoral artery (mid): 98 cm/s, Multiphasic Superficial femoral artery (distal): 88 cm/s, Multiphasic Proximal Popliteal artery: 88 cm/s, Multiphasic Mid posterior tibial artery: 102 cm/s, Multiphasic Peroneal artery: Occluded US/US arterial duplex LE BI IMPRESSION: RIGHT LEG: Elevated NATALIA suggests calcific atherosclerotic disease. The right peroneal artery is occluded. No hemodynamically significant stenoses proximally in the right lower extremity. LEFT LEG: Elevated NATALIA suggests calcific atherosclerotic disease. The left peroneal artery is occluded. No hemodynamically significant stenoses proximally in the right lower extremity.
== END 2022-04-01 13:35 | disposition home or self-care (01) ==
LOC: HO.US 13:34
PROVIDERS: PCP Hospitalist; Visit Provider Surgery Vascular Surgery
DX: I70.213 Atherosclerosis of native arteries of extremities with intermittent claudication, bilateral legs (principal)
CPT/HCPCS: 93923; 93925

== ENCOUNTER → 2022-04-16 14:02 | Outpatient (BNVA) | payer OTHER, SELFPAY | PROVIDERS: PCP Hospitalist; Visit Provider Surgery Vascular Surgery | DX: I73.9 Peripheral vascular disease, unspecified (principal); Z89.421 Acquired absence of other right toe(s) | CPT/HCPCS: 99212 ==

== ENCOUNTER 2022-04-19 16:31 | Emergency (ER) | payer OTHER, SELFPAY ==
--- NOTE | ~2022-04-19 | CT_ITS ---
EXAMINATION: CT FACIAL BONES WITH CONTRAST CLINICAL INFORMATION: Concern for facial abscess. COMPARISON: None TECHNIQUE: 3 mm thin axial and reformatted 1.5 minutes thin sagittal and coronal images of facial bones were obtained following IV 85 mL Omnipaque 350. This CT examination was performed using dose optimization techniques as appropriate, variously including the following: *Automated exposure control *Adjustment of mA and/or kV according to patient size (this includes techniques or standardized protocols for targeted exams where dose is matched to indication/reason for exam; i.e. extremities or head) *Use of iterative reconstruction technique DLP: 383 mGy-cm FINDINGS: There are dental amalgam related artifact limiting evaluation of the oral cavity, mandible and maxilla. Bilateral paranasal sinuses are well-aerated and clear. The mastoid sinuses are clear. Bilateral bony orbits, optic globe and optic nerve are normal and symmetrical. No preseptal or post septal soft tissue mass or edema. Bilateral TM joints are symmetrical. Visualized mandible is unremarkable. Bilateral submandibular, parotid glands are symmetric and normal. There are bilateral submandibular space lymph nodes measuring 1.7 cm in maximum dimension on the left. There is normal symmetry of maxillofacial bones and soft tissues. There is ventral and mild artifact restricts evaluation of the oral cavity. However there is no periapical cyst seen in the axilla or the mandible. The parapharyngeal spaces are normal. No oral cavity of parapharyngeal mass seen. Scattered lymph nodes are seen in the carotid/jugular space largest measuring 1.62 cm on the left on axial image 184/3. CT/CT facial bones w IV con IMPRESSION: Mild abnormal bilateral neck lymphadenopathy with largest lymph nodes measure 1.6-1.7 cm. No solid mass or enhancement seen. There is no suspicion for abscess. The maxillofacial soft tissues are normal.
[2022-04-19 16:40] VITALS: BP 200/111; PULSE 109; RESP 20; TEMP 36.4; O2SAT 99; BMI 41.5
--- NOTE | 2022-04-19 16:44 | ED.GENADULT ---
HPI - General Adult General Chief complaint: General Medical <ANDRES Dejesus - Last Filed: 04/19/22 16:46> Stated complaint: Nose abscess <ANDRES Dejesus - Last Filed: 04/19/22 16:46> Time Seen by Provider: 04/19/22 20:09 <ANDRES Dejesus - Last Filed: 04/19/22 16:46> Source: patient <Maye Vizcaino NP - Last Filed: 04/20/22 00:54> Mode of arrival: ambulatory <Maye Vizcaino NP - Last Filed: 04/20/22 00:54> Limitations: no limitations <Maye Vizcaino NP - Last Filed: 04/20/22 00:54> History of Present Illness HPI narrative: 52-year-old male presents with 3 days of facial swelling and redness with pain in his nose and around his lips. He does not describe any injury or trauma, is diabetic, has a history of hepatitis-C, schizophrenia, bipolar 1, and hypertension. <Maye Vizcaino NP - Last Filed: 04/20/22 00:54> Onset (ago): day(s) (3) <Maye Vizcaino NP - Last Filed: 04/20/22 00:54> Location: face and mouth <Maye Vizcaino NP - Last Filed: 04/20/22 00:54> Radiation: non-radiation <Maye Vizcaino NP - Last Filed: 04/20/22 00:54> Severity: severe <Maye Vizcaino NP - Last Filed: 04/20/22 00:54> Severity scale (1-10): 9 <Maye Vizcaino NP - Last Filed: 04/20/22 00:54> Quality: aching <Maye Vizcaino NP - Last Filed: 04/20/22 00:54> Pain Consistency: constant <Maye Vizcaino NP - Last Filed: 04/20/22 00:54> Relieving factors: none <Maye Vizcaino NP - Last Filed: 04/20/22 00:54> Exacerbating factors: eating and movement <Maye Vizcaino NP - Last Filed: 04/20/22 00:54> Associated symptoms: fever/chills, loss of appetite and nausea/vomiting <Maye Vizcaino NP - Last Filed: 04/20/22 00:54> Treatments prior to arrival: none <Maye Vizcaino NP - Last Filed: 04/20/22 00:54> Related Data Home medications: Previous Rx's Medication Instructions Recorded aspirin 81 mg tablet,delayed 81 mg PO DAILY 30 days #30 tabs 10/10/21 release cane #1 ea 10/10/21 clonidine HCl 0.1 mg tablet 0.1 mg PO BID #60 tabs 10/10/21 clopidogrel 75 mg tablet 75 mg PO DAILY 30 days #30 tabs 10/10/21 insulin human U-100 NPH-regulr 45 unit (0.45 mL) subcut QAM 30 10/10/21 70-30 mix 100 unit/mL subcutaneous days #13.5 mL susp (Humulin 70/30 U-100 Insulin) lisinopril 10 mg tablet 20 mg PO DAILY #60 tabs 10/10/21 oxcarbazepine 300 mg tablet 300 mg PO BEDTIME #30 tabs 10/10/21 oxycodone 5 mg capsule 5 mg PO TID PRN moderate pain 01/15/22 (scale score 5-6) #30 caps vancomycin 1,000 mg intravenous 1,000 mg IV Q12H #10 ea 01/15/22 injection amlodipine 5 mg tablet 5 mg PO DAILY 30 days #30 tabs 03/24/22 insulin human U-100 NPH-regulr 50 unit (0.5 mL) subcut QPM 30 03/24/22 70-30 mix 100 unit/mL subcutaneous days #15 mL susp (Humulin 70/30 U-100 Insulin) risperidone 2 mg tablet (Risperdal) 2 mg PO BID #60 tabs 03/24/22 amoxicillin 875 mg-potassium 1 tab PO Q12H 10 days #20 tabs 04/19/22 clavulanate 125 mg tablet tramadol 50 mg tablet 50 mg PO TID PRN pain #10 tabs 04/19/22 <ANDRES Dejesus - Last Filed: 04/19/22 16:46> Allergies/adverse reactions: Allergies Allergy/AdvReac Type Severity Reaction Status Date / Time No Known Allergies Allergy Verified 02/03/23 16:46 <ANDRES Dejesus - Last Filed: 04/19/22 16:46> Review of Systems Review of Systems: Constitutional: No Fever, No Chills ENT/Mouth: No Ear Pain, No Hoarseness, No sore throat, positive mouth and nasal pain Eyes: No Eye Pain, No Swelling, No Redness, No Foreign Body Cardiovascular: No Chest Pain, No SOB Respiratory: No Cough, No Dyspnea Gastrointestinal: No Nausea, No Vomiting, No Diarrhea, No abdominal Pain Genitourinary: No Dysuria, No Hematuria Musculoskeletal: No joint pain, No Myalgias, No Joint Swelling Skin: Positive facial redness and swelling, No Skin lacerations, No rash Neuro: No Weakness, No Numbness, No Paresthesias, No Loss of Consciousness, No Dizziness, No Headache Psych: No Anxiety/Panic, No Depression, no SI no HI <Maye Vizcaino NP - Last Filed: 04/20/22 00:54> Yes all other systems are reviewed and are negative <Maye Vizcaino NP - Last Filed: 04/20/22 00:54> [facility], [facility] Past Medical History Attestation statement: The following information was validated with the patient. <Maye Vizcaino NP - Last Filed: 04/20/22 00:54> Source: old records reviewed <Maye Vizcaino NP - Last Filed: 04/20/22 00:54> Medical History: Medical History Broken toe Diabetes HCV (hepatitis C virus) Hypertension Osteomyelitis PAD (peripheral artery disease) Schizoaffective disorder <ANDRES Dejesus - Last Filed: 04/19/22 16:46> Family History Family History: Family History Father Diabetes mellitus <ANDRES Dejesus - Last Filed: 04/19/22 16:46> Social History Social History: Social History Household Members: Family Household Members Other:: Friend Housing: House Do you presently have visiting nurse or other home services: No Alcohol intake: never Patient Tobacco Use Status: Former Tobacco user Quit Date: 08/07/21 Advance Directives: No Advance Directives Information Provided: No service: No Current occupational status: unemployed <ANDRES Dejesus - Last Filed: 04/19/22 16:46> Physical Exam ED Vital Signs: Vital Signs - 24 hr 04/19/22 16:40 04/19/22 20:47 Temperature 97.5 F 100.0 F Pulse Rate 109 H 102 H Respiratory Rate 20 18 Blood Pressure 200/111 H 170/90 H Pulse Oximetry 99 Oxygen Delivery Method Room Air BMI result Body Mass Index 41.5 <ANDRES Dejesus Last Filed: 04/19/22 16:46> Vital Signs - 24 hr 04/19/22 16:40 04/19/22 20:47 Temperature 97.5 F 100.0 F Pulse Rate 109 H 102 H Respiratory Rate 20 18 Blood Pressure 200/111 H 170/90 H Pulse Oximetry 99 Oxygen Delivery Method Room Air BMI result Body Mass Index 41.5 <Maye Vizcaino NP - Last Filed: 04/20/22 00:54> Appearance: Alert. Oriented X3. Mild distress. Facial cellulitis around the nares and upper lip. Eyes: Pupils equal, round and reactive to light. ENT: Pharynx normal. Neck: Normal inspection. Neck supple. No nuchal rigidity. No mastoid tenderness. No vertebral tenderness. CVS: Tachycardic heart rate and rhythm. Respiratory: No respiratory distress. Breath sounds normal. Abdomen: Soft and nontender. Skin: Skin warm and dry. Normal skin color. Normal skin turgor. Extremities: No lower extremity edema. Gait balance and coordinated. Neuro: No motor deficit. No sensory deficit. Cranial nerves 2-12 intact. <Maye Vizcaino NP - Last Filed: 04/20/22 00:54> Course Course Course Narrative: RME performed by Wendi Eduardo PA-C. Patient is a 52 year old male with a hx of osteomyelitis and diabetes presenting to the emergency department with facial swelling and pain. Patient states that over the last 3 days he has had nose and facial swelling and pain to touch. Labs and facial CT ordered. Patient placed back in the waiting room pending room availability and results. <ANDRES Dejesus Last Filed: 04/19/22 16:46> RME performed by Wendi Eduardo, PA-C. Patient is a 52 year old male with a hx of osteomyelitis and diabetes presenting to the emergency department with facial swelling and pain. Patient states that over the last 3 days he has had nose and facial swelling and pain to touch. Labs and facial CT ordered. Patient placed back in the waiting room pending room availability and results. 52-year-old male presents with facial cellulitis on his upper lip and nares. States that he has had this for about 3 days, and the pain is unbearable. He is having hard time eating and drinking because of the mouth pain. This is not appear to be a dental abscess, pharyngeal exam is normal. Upper lip is swollen with cellulitis, CT scan facial bones is pending. Will give patient some IV ceftriaxone, insulin at this time. Tylenol was insufficient, we will give morphine and Zofran. White count 11.1, corrected sodium 137, patient does have inflammatory markers that are elevated, CRP 15, ESR 70. CT scan of facial bones is negative for acute findings. Hospitalist did round on this patient, and feels that this patient does not require admission. Patient agrees with this plan. Will order Augmentin and tramadol for pain management. Patient understands that he must take his medications as directed, and return if symptoms worsen. <Maye Vizcaino NP - Last Filed: 04/20/22 00:54> Consultations Consultation #1: Mario <Maye Vizcaino NP - Last Filed: 04/20/22 00:54> Medications Administered Discontinued Medications Generic Name Dose Route Start Last Admin Trade Name Hermiloq PRN Reason Stop Dose Admin Acetaminophen 650 mg 04/19/22 20:55 04/19/22 21:05 Acetaminophen 325 Mg Tablet PO 04/19/22 20:56 650 mg ONCE ONE Administration Ceftriaxone Sodium 1 gm/ 50 mls @ 100 mls/hr 04/19/22 20:20 04/19/22 21:14 Sodium Chloride IV 04/19/22 20:49 Infused ONCE ONE Infusion Insulin Human Lispro 10 unit 04/19/22 20:57 04/19/22 21:06 Insulin Lispro 100 Unit/Ml 3 Ml Vial SUBCUT 04/19/22 20:58 10 unit ONCE ONE Administration Insulin Human Regular 5 unit 04/19/22 20:58 04/19/22 21:12 Insulin Regular, Human 100 Unit/Ml 3 Ml Vial IVPUSH 04/19/22 20:59 5 unit ONCE ONE Administration Iohexol 100 ml 04/19/22 20:25 04/19/22 20:25 Iohexol 350 Mg/Ml 100 Ml Infus..Btl IV 04/19/22 20:26 85 ml ONCE ONE Administration Morphine Sulfate 4 mg 04/19/22 20:55 04/19/22 21:07 Morphine Sulfate 4 Mg/Ml Cartridge IVPUSH 04/19/22 20:56 4 mg ONCE ONE Administration Protocol Ondansetron HCl 4 mg 04/19/22 20:55 04/19/22 21:06 Ondansetron Hcl 4 Mg/2 Ml Vial IVPUSH 04/19/22 20:56 4 mg ONCE ONE Administration <ANDRES Dejesus - Last Filed: 04/19/22 16:46> Medications Administered Discontinued Medications Generic Name Dose Route Start Last Admin Trade Name Freq PRN Reason Stop Dose Admin Acetaminophen 650 mg 04/19/22 20:55 04/19/22 21:05 Acetaminophen 325 Mg Tablet PO 04/19/22 20:56 650 mg ONCE ONE Administration Ceftriaxone Sodium 1 gm/ 50 mls @ 100 mls/hr 04/19/22 20:20 04/19/22 21:14 Sodium Chloride IV 04/19/22 20:49 Infused ONCE ONE Infusion Insulin Human Lispro 10 unit 04/19/22 20:57 04/19/22 21:06 Insulin Lispro 100 Unit/Ml 3 Ml Vial SUBCUT 04/19/22 20:58 10 unit ONCE ONE Administration Insulin Human Regular 5 unit 04/19/22 20:58 04/19/22 21:12 Insulin Regular, Human 100 Unit/Ml 3 Ml Vial IVPUSH 04/19/22 20:59 5 unit ONCE ONE Administration Iohexol 100 ml 04/19/22 20:25 04/19/22 20:25 Iohexol 350 Mg/Ml 100 Ml Infus..Btl IV 04/19/22 20:26 85 ml ONCE ONE Administration Morphine Sulfate 4 mg 04/19/22 20:55 04/19/22 21:07 Morphine Sulfate 4 Mg/Ml Cartridge IVPUSH 04/19/22 20:56 4 mg ONCE ONE Administration Protocol Ondansetron HCl 4 mg 04/19/22 20:55 04/19/22 21:06 Ondansetron Hcl 4 Mg/2 Ml Vial IVPUSH 04/19/22 20:56 4 mg ONCE ONE Administration <Maye Vizcaino NP - Last Filed: 04/20/22 00:54> Medical Decision Making Differential Diagnosis Differential Diagnoses: The differential diagnosis associated with the presentation includes <Maye Vizcaino NP - Last Filed: 04/20/22 00:54> Abscess, cellulitis <Maye Vizcaino NP - Last Filed: 04/20/22 00:54> Admission/Observation Consideration of admission/observation: Escalation of care including admission/observation considered <Maye Vizcaino NP - Last Filed: 04/20/22 00:54> If CT scan facial bones positive, will have patient admitted <Maye Vizcaino NP - Last Filed: 04/20/22 00:54> Consult Healthcare Provider Management of the patient was discussed with: Hospitalist <Maye Vizcaino NP - Last Filed: 04/20/22 00:54> Lab Data MDM Lab Attestation statement: I reviewed the patient's lab results. <Maye Vizcaino NP - Last Filed: 04/20/22 00:54> Result Diagrams: 04/19/22 17:41 04/19/22 17:41 <ANDRES Dejesus - Last Filed: 04/19/22 16:46> Labs: Lab Results 04/19/22 04/19/22 04/19/22 Range/Units 17:41 17:41 17:41 WBC 11.1 H (4.8-10.8) X10*3/uL RBC 5.61 (4.60-5.80) X10*6/uL Hgb 14.3 (14.0-18.0) g/dl Hct 42.1 (42.0-52.0) % MCV 75.0 L (80.0-98.0) fL MCH 25.5 L (27.0-33.0) pg MCHC 34.0 (31.0-36.0) g/dl RDW 13.4 (11.0-16.0) % Plt Count 275 (160-400) X10*3/uL MPV 11.2 (9.4-12.4) fL Immature Gran % (Auto) 1.2 H (0.0-0.4) % Neut % (Auto) 77.1 H (45-73) % Lymph % (Auto) 14.4 L (20-40) % [place] % (Auto) 6.4 (2-11) % Eos % (Auto) 0.6 (0-4) % Baso % (Auto) 0.3 (0-2) % Lymph # (Auto) 1.6 (1.2-4.9) X10*3/uL [place] # (Auto) 0.7 (0.1-1.2) X10*3/uL Eos # (Auto) 0.1 (0.0-0.4) X10*3/uL Baso # (Auto) 0.0 (0.0-0.2) X10*3/uL Abs Immat Gran (auto) 0.13 H (0.00-0.03) X10*3/uL Absolute Neuts (auto) 8.6 H (2.0-8.3) x10*3/uL Absolute Nucleated RBC 0.000 (0.0-0.012) X10*3/uL Nucleated RBC % (auto) 0.0 (0.0-0.2) /100WBC ESR 70 H (0-15) MM/HR Sodium 132 L (135-145) mmol/L Potassium 5.4 H (3.3-5.1) mmol/L Chloride 101 (96-108) mmol/L Carbon Dioxide 19 L (22-29) mmol/L Anion Gap 17 (12-20) BUN 16 (9-16) mg/dL Creatinine 1.27 (0.5-1.4) mg/dL Estim Creat Clear Calc 80.0 Estimated GFR 60 Random Glucose 408 H* (60-115) mg/dL Lactic Acid (0.5-2.0) mmol/L Calcium 9.1 (8.4-10.2) mg/dL Magnesium 2.0 (1.6-2.6) mg/dL Total Bilirubin 0.3 (0.0-1.0) mg/dL AST 31 (5-37) U/L ALT 27 (0-40) U/L Alkaline Phosphatase 124 H (39-117) U/L C-Reactive Protein 15.67 H (< or = 0.50) mg/dL Total Protein 8.1 H (6.5-8.0) g/dL Albumin 3.7 (3.5-5.0) g/dL Influenza Type A (PCR) (Negative) Influenza Type B (PCR) (Negative) RSV RNA Qual (PCR) (Negative) SARS-CoV-2 RNA (RT-PCR) (Negative) 04/19/22 04/19/22 Range/Units 21:41 21:41 WBC (4.8-10.8) X10*3/uL RBC (4.60-5.80) X10*6/uL Hgb (14.0-18.0) g/dl Hct (42.0-52.0) % MCV (80.0-98.0) fL MCH (27.0-33.0) pg MCHC (31.0-36.0) g/dl RDW (11.0-16.0) % Plt Count (160-400) X10*3/uL MPV (9.4-12.4) fL Immature Gran % (Auto) (0.0-0.4) % Neut % (Auto) (45-73) % Lymph % (Auto) (20-40) % [place] % (Auto) (2-11) % Eos % (Auto) (0-4) % Baso % (Auto) (0-2) % Lymph # (Auto) (1.2-4.9) X10*3/uL [place] # (Auto) (0.1-1.2) X10*3/uL Eos # (Auto) (0.0-0.4) X10*3/uL Baso # (Auto) (0.0-0.2) X10*3/uL Abs Immat Gran (auto) (0.00-0.03) X10*3/uL Absolute Neuts (auto) (2.0-8.3) x10*3/uL Absolute Nucleated RBC (0.0-0.012) X10*3/uL Nucleated RBC % (auto) (0.0-0.2) /100WBC ESR (0-15) MM/HR Sodium (135-145) mmol/L Potassium (3.3-5.1) mmol/L Chloride (96-108) mmol/L Carbon Dioxide (22-29) mmol/L Anion Gap (12-20) BUN (9-16) mg/dL Creatinine (0.5-1.4) mg/dL Estim Creat Clear Calc Estimated GFR Random Glucose (60-115) mg/dL Lactic Acid 1.6 (0.5-2.0) mmol/L Calcium (8.4-10.2) mg/dL Magnesium (1.6-2.6) mg/dL Total Bilirubin (0.0-1.0) mg/dL AST (5-37) U/L ALT (0-40) U/L Alkaline Phosphatase (39-117) U/L C-Reactive Protein (< or = 0.50) mg/dL Total Protein (6.5-8.0) g/dL Albumin (3.5-5.0) g/dL Influenza Type A (PCR) NEGATIVE (Negative) Influenza Type B (PCR) NEGATIVE (Negative) RSV RNA Qual (PCR) NEGATIVE (Negative) SARS-CoV-2 RNA (RT-PCR) NEGATIVE (Negative) <ANDRES Dejesus - Last Filed: 04/19/22 16:46> Lab Results 04/19/22 04/19/22 04/19/22 Range/Units 17:41 17:41 17:41 WBC 11.1 H (4.8-10.8) X10*3/uL RBC 5.61 (4.60-5.80) X10*6/uL Hgb 14.3 (14.0-18.0) g/dl Hct 42.1 (42.0-52.0) % MCV 75.0 L (80.0-98.0) fL MCH 25.5 L (27.0-33.0) pg MCHC 34.0 (31.0-36.0) g/dl RDW 13.4 (11.0-16.0) % Plt Count 275 (160-400) X10*3/uL MPV 11.2 (9.4-12.4) fL Immature Gran % (Auto) 1.2 H (0.0-0.4) % Neut % (Auto) 77.1 H (45-73) % Lymph % (Auto) 14.4 L (20-40) % [place] % (Auto) 6.4 (2-11) % Eos % (Auto) 0.6 (0-4) % Baso % (Auto) 0.3 (0-2) % Lymph # (Auto) 1.6 (1.2-4.9) X10*3/uL [place] # (Auto) 0.7 (0.1-1.2) X10*3/uL Eos # (Auto) 0.1 (0.0-0.4) X10*3/uL Baso # (Auto) 0.0 (0.0-0.2) X10*3/uL Abs Immat Gran (auto) 0.13 H (0.00-0.03) X10*3/uL Absolute Neuts (auto) 8.6 H (2.0-8.3) x10*3/uL Absolute Nucleated RBC 0.000 (0.0-0.012) X10*3/uL Nucleated RBC % (auto) 0.0 (0.0-0.2) /100WBC ESR 70 H (0-15) MM/HR Sodium 132 L (135-145) mmol/L Potassium 5.4 H (3.3-5.1) mmol/L Chloride 101 (96-108) mmol/L Carbon Dioxide 19 L (22-29) mmol/L Anion Gap 17 (12-20) BUN 16 (9-16) mg/dL Creatinine 1.27 (0.5-1.4) mg/dL Estim Creat Clear Calc 80.0 Estimated GFR 60 Random Glucose 408 H* (60-115) mg/dL Lactic Acid (0.5-2.0) mmol/L Calcium 9.1 (8.4-10.2) mg/dL Magnesium 2.0 (1.6-2.6) mg/dL Total Bilirubin 0.3 (0.0-1.0) mg/dL AST 31 (5-37) U/L ALT 27 (0-40) U/L Alkaline Phosphatase 124 H (39-117) U/L C-Reactive Protein 15.67 H (< or = 0.50) mg/dL Total Protein 8.1 H (6.5-8.0) g/dL Albumin 3.7 (3.5-5.0) g/dL Influenza Type A (PCR) (Negative) Influenza Type B (PCR) (Negative) RSV RNA Qual (PCR) (Negative) SARS-CoV-2 RNA (RT-PCR) (Negative) 04/19/22 04/19/22 Range/Units 21:41 21:41 WBC (4.8-10.8) X10*3/uL RBC (4.60-5.80) X10*6/uL Hgb (14.0-18.0) g/dl Hct (42.0-52.0) % MCV (80.0-98.0) fL MCH (27.0-33.0) pg MCHC (31.0-36.0) g/dl RDW (11.0-16.0) % Plt Count (160-400) X10*3/uL MPV (9.4-12.4) fL Immature Gran % (Auto) (0.0-0.4) % Neut % (Auto) (45-73) % Lymph % (Auto) (20-40) % [place] % (Auto) (2-11) % Eos % (Auto) (0-4) % Baso % (Auto) (0-2) % Lymph # (Auto) (1.2-4.9) X10*3/uL [place] # (Auto) (0.1-1.2) X10*3/uL Eos # (Auto) (0.0-0.4) X10*3/uL Baso # (Auto) (0.0-0.2) X10*3/uL Abs Immat Gran (auto) (0.00-0.03) X10*3/uL Absolute Neuts (auto) (2.0-8.3) x10*3/uL Absolute Nucleated RBC (0.0-0.012) X10*3/uL Nucleated RBC % (auto) (0.0-0.2) /100WBC ESR (0-15) MM/HR Sodium (135-145) mmol/L Potassium (3.3-5.1) mmol/L Chloride (96-108) mmol/L Carbon Dioxide (22-29) mmol/L Anion Gap (12-20) BUN (9-16) mg/dL Creatinine (0.5-1.4) mg/dL Estim Creat Clear Calc Estimated GFR Random Glucose (60-115) mg/dL Lactic Acid 1.6 (0.5-2.0) mmol/L Calcium (8.4-10.2) mg/dL Magnesium (1.6-2.6) mg/dL Total Bilirubin (0.0-1.0) mg/dL AST (5-37) U/L ALT (0-40) U/L Alkaline Phosphatase (39-117) U/L C-Reactive Protein (< or = 0.50) mg/dL Total Protein (6.5-8.0) g/dL Albumin (3.5-5.0) g/dL Influenza Type A (PCR) NEGATIVE (Negative) Influenza Type B (PCR) NEGATIVE (Negative) RSV RNA Qual (PCR) NEGATIVE (Negative) SARS-CoV-2 RNA (RT-PCR) NEGATIVE (Negative) <Maye Vizcaino NP - Last Filed: 04/20/22 00:54> Independent Interpretation I performed an independent interpretation of an: CT Scan <Maye Vizcaino NP - Last Filed: 04/20/22 00:54> Radiology Impression Discussion of test interpretation with radiology: I have reviewed the radiologist's reading. <Maye Vizcaino NP - Last Filed: 04/20/22 00:54> Radiologist Impression: FINDINGS: There are dental amalgam related artifact limiting evaluation of the oral cavity, mandible and maxilla. Bilateral paranasal sinuses are well-aerated and clear. The mastoid sinuses are clear. Bilateral bony orbits, optic globe and optic nerve are normal and symmetrical. No preseptal or post septal soft tissue mass or edema. Bilateral TM joints are symmetrical. Visualized mandible is unremarkable. Bilateral submandibular, parotid glands are symmetric and normal. There are bilateral submandibular space lymph nodes measuring 1.7 cm in maximum dimension on the left. There is normal symmetry of maxillofacial bones and soft tissues. There is ventral and mild artifact restricts evaluation of the oral cavity. However there is no periapical cyst seen in the axilla or the mandible. The parapharyngeal spaces are normal. No oral cavity of parapharyngeal mass seen. Scattered lymph nodes are seen in the carotid/jugular space largest measuring 1.62 cm on the left on axial image 184/3. CT/CT facial bones w IV con IMPRESSION: Mild abnormal bilateral neck lymphadenopathy with largest lymph nodes measure 1.6-1.7 cm. No solid mass or enhancement seen. There is no suspicion for abscess. The maxillofacial soft tissues are normal. <Maye Vizcaino NP - Last Filed: 04/20/22 00:54> External Record Review External record reviewed: Outpatient record and Prior outpatient labs <Maye Vizacino NP - Last Filed: 04/20/22 00:54> Prescription Management I considered prescription management with: Pain Medication and Antibiotic <Maye Vizcaino NP - Last Filed: 04/20/22 00:54> Chronic Conditions Patient?s care impacted by: Diabetes and Hypertension <Maye Vizcaino NP - Last Filed: 04/20/22 00:54> Discharge Plan Discharge Clinical Impression: Cellulitis of face <ANDRES Dejesus - Last Filed: 04/19/22 16:46> Patient Disposition: Home, Self-Care <ANDRES Dejesus - Last Filed: 04/19/22 16:46> Instructions: Cellulitis (ED) <ANDRES Dejesus - Last Filed: 04/19/22 16:46> Additional Instructions: Se le evalu? por dolor e hinchaz?n facial. La tomograf?a computarizada de los huesos faciales es negativa para hallazgos agudos. Te estamos tratando de celulitis de la danna. [place] Augmentin 875 mg dos veces al d?a ray los pr?ximos 10 d?as. Para el control del dolor, tome tramadol 50 mg cada 8 horas seg?n sea necesario para el control del dolor. Elyse medicamento es un narc?avinash y tiene un alto riesgo de adicci?n y abuso. No conduzca ni maneje maquinaria mientras pedro pablo elyse medicamento. Elyse medicamento puede retrasar el tiempo de reacci?n, aumentar el riesgo de ca?singh, causar estre?imiento y somnolencia. [place] MiraLax o Colace para ayudar a ablandar las heces. Contin?e tomando todos raeann medicamentos seg?n las indicaciones. [place] Tylenol 650 mg cada 6 horas y Motrin 600 mg cada 6 horas seg?n sea necesario para controlar el dolor y la fiebre. Considere nisa estos medicamentos con 3 horas de diferencia para controlar el dolor y la fiebre cada 3 horas. Anote a qu? hora pedro pablo estos medicamentos para evitar peg sobredosis accidental. Wolfgang por elegir elyse departamento de emergencias para hoff evaluaci?n. Por favor, carmelo un seguimiento con el m?dico de atenci?n primaria seg?n sea necesario. Regrese al departamento de emergencias por cualquier s?ntoma nuevo, preocupante o que empeore You were evaluated for facial pain and swelling. CT scan of the facial bones are negative for acute findings. We are treating you for cellulitis of the face. Please take Augmentin 875 mg twice a day for the next 10 days. For pain management take tramadol 50 mg every 8 hours as needed for pain management. This medication is a narcotic and has high risk for addiction and abuse. Do not drive or operate machinery while taking this medication. This medication can delay reaction time, increased risk for falls, cause constipation, and cause drowsiness. Take MiraLax and or Colace to help soften stools. Continue to take all of your medications as directed. Alternate Tylenol 650 mg every 6 hours and Motrin 600 mg every 6 hours as needed for pain and fever management. Consider taking these medications 3 hours apart so you have pain and fever management every 3 hours. Write down what time you take these medications to prevent accidental overdose. Thank you for choosing this emergency department for evaluation. Please follow-up with primary care physician as needed. Return to the emergency department for any new, concerning, or worsening symptoms. <ANDRES Dejesus - Last Filed: 04/19/22 16:46> Prescriptions: New amoxicillin-pot clavulanate 875-125 mg tablet 1 tab PO Q12H 10 Days Qty: 20 0RF tramadol 50 mg tablet 50 mg PO TID PRN (Reason: pain) Qty: 10 0RF No Action Humulin 70/30 U-100 Insulin 100 unit/mL (70-30) suspension 50 unit subcut QPM 30 Days Qty: 15 4RF amlodipine 5 mg tablet 5 mg PO DAILY 30 Days Qty: 30 8RF Protocol: Hold for SBP< HOLD for SBP < : 105 risperidone [Risperdal] 2 mg tablet 2 mg PO BID Qty: 60 8RF vancomycin 1,000 mg recon soln 1,000 mg IV Q12H Qty: 10 0RF Rx Instructions: end feb 18, 2022 oxycodone 5 mg capsule 5 mg PO TID PRN (Reason: moderate pain (scale score 5-6)) Qty: 30 0RF Rx Instructions: Partial Fill upon patient request. aspirin 81 mg tablet,delayed release (DR/EC) 81 mg PO DAILY 30 Days Qty: 30 8RF clonidine HCl 0.1 mg tablet 0.1 mg PO BID Qty: 60 8RF clopidogrel 75 mg tablet 75 mg PO DAILY 30 Days Qty: 30 11RF Rx Instructions: stent placed 09/05/21 will need for one year or longer Humulin 70/30 U-100 Insulin 100 unit/mL (70-30) suspension 45 unit SUBCUT QAM 30 Days Qty: 13.5 8RF lisinopril 10 mg tablet 20 mg PO DAILY Qty: 60 8RF oxcarbazepine 300 mg tablet 300 mg PO BEDTIME Qty: 30 8RF (DME) cane Device See Rx Instructions .Route Qty: 1 0RF Rx Instructions: As directed <ANDRES Dejesus - Last Filed: 04/19/22 16:46> Stand Alone Forms: Work/School Release <ANDRES Dejesus - Last Filed: 04/19/22 16:46> Interventions: ED Discharge Assessment Last Done: 04/19/22 22:23 <ANDRES Dejesus - Last Filed: 04/19/22 16:46> Discharge Date/Time: 04/19/22 22:24 <ANDRES Dejesus - Last Filed: 04/19/22 16:46>
[2022-04-19 17:46] LABS: MANUAL DIFF FLAG NO
[2022-04-19 18:16] LABS: Basophils Percent Auto 0.3 % (0-2); Eosinophils Absolute Auto 0.1 X10*3/uL (0.0-0.4); Eosinophils Percent Auto 0.6 % (0-4); Hematocrit 42.1 % (42.0-52.0); Hemoglobin 14.3 g/dl (14.0-18.0); Imm Gran Abs Auto 0.13 X10*3/uL (0.00-0.03); Imm Gran Pct Auto 1.2 % (0.0-0.4); Lymphocytes Absolute Auto 1.6 X10*3/uL (1.2-4.9); Lymphocytes Percent Auto 14.4 % (20-40); Mean Corpuscular Hemoglobin 25.5 pg (27.0-33.0); Mean Platelet Volume 11.2 fL (9.4-12.4); Monocytes Absolute Auto 0.7 X10*3/uL (0.1-1.2); Monocytes Percent Auto 6.4 % (2-11); Neutrophils Absolute Auto 8.6 x10*3/uL (2.0-8.3); Neutrophils Percent Auto 77.1 % (45-73); Platelet Count 275 X10*3/uL (160-400); Red Blood Count 5.61 X10*6/uL (4.60-5.80); Red Cell Distribution Width 13.4 % (11.0-16.0); White Blood Count 11.1 X10*3/uL (4.8-10.8)
[2022-04-19 18:22] LABS: Alanine Aminotransferase 27 U/L (0-40); Albumin Level 3.7 g/dL (3.5-5.0); Alkaline Phosphatase 124 U/L (39-117); Anion Gap 17 (12-20); Aspartate Amino Transferase 31 U/L (5-37); Bilirubin Total 0.3 mg/dL (0.0-1.0); Blood Urea Nitrogen 16 mg/dL (9-16); C Reactive Protein 15.67 mg/dL (< or = 0.50); Calcium 9.1 mg/dL (8.4-10.2); Carbon Dioxide 19 mmol/L (22-29); Chloride 101 mmol/L (96-108); Estimated Glomerular Filt Rate 60; Glucose Random 408 mg/dL (60-115); Potassium 5.4 mmol/L (3.3-5.1); Sodium 132 mmol/L (135-145); Total Protein 8.1 g/dL (6.5-8.0)
[2022-04-19 18:39] LABS: Erythrocyte Sedimentation Rate 70 MM/HR (0-15)
[2022-04-19] MEDS: iohexoL 350 MG/ML 100 ML INFUS..BTL IV (20:25)
[2022-04-19] MEDS: cefTRIAXone sodium 1 GM in 0.9 % Sodium Chloride 50 ML IV (20:40)
[2022-04-19 20:47] VITALS: BP 170/90; PULSE 102; RESP 18; TEMP 37.8
[2022-04-19] MEDS: Acetaminophen 325 MG TABLET 650 MG PO (21:05)
[2022-04-19] MEDS: ondansetron HCL 4 MG/2 ML VIAL IVPUSH (21:06)
[2022-04-19] MEDS: Insulin Lispro 100 UNIT/ML 3 ML VIAL 10 UNIT SUBCUT (21:06)
[2022-04-19] MEDS: Morphine Sulfate 4 MG/ML CARTRIDGE IVPUSH (21:07)
[2022-04-19] MEDS: Insulin Regular, Human 100 UNIT/ML 3 ML VIAL IVPUSH (21:12)
[2022-04-19 22:12] LABS: Lactic Acid 1.6 mmol/L (0.5-2.0)
[2022-04-19 22:40] LABS: Influenza A PCR NEGATIVE (Negative); Influenza B PCR NEGATIVE (Negative); Resp Syncy Virus RNA Qual PCR NEGATIVE (Negative); SARS COV2 PCR INHOUSE NEGATIVE (Negative)
== END 2022-04-19 22:24 | disposition home or self-care (01) ==
PROVIDERS: Nurse Practitioner Family; Physician Assistant Medical; Emergency Provider Internal Medicine; PCP Hospitalist
DX: L03.211 Cellulitis of face (principal); E11.9 Type 2 diabetes mellitus without complications; Z20.822 Contact with and (suspected) exposure to COVID-19; Z20.828 Contact with and (suspected) exposure to other viral communicable diseases; Z79.899 Other long term (current) drug therapy; Z79.4 Long term (current) use of insulin
CPT/HCPCS: 0241U; 36415; 70487; 80053; 83605; 83735; 85025; 85652; 86140; 87040; 96365; 96375; 99284; J0696; J2270; J2405; Q9967

== ENCOUNTER 2022-04-30 11:02 | Outpatient (REF) | payer OTHER, SELFPAY ==
[2022-04-30 15:21] LABS: Creatinine Urine 66.87 mg/dL; Microalbum/Creatinine Ratio Ur 913.7 ug/mg cr
== END 2022-04-30 11:03 | disposition home or self-care (01) ==
LOC: HO.WFDLNP 11:02
PROVIDERS: Visit Provider Nurse Practitioner Family
DX: E11.9 Type 2 diabetes mellitus without complications (principal)
CPT/HCPCS: 82043

== ENCOUNTER 2022-09-27 14:00 | Emergency (ER) | payer OTHER, SELFPAY ==
[2022-09-27 14:50] VITALS: BP 180/95
[2022-09-27 15:07] VITALS: BP 136/65; PULSE 78; RESP 18; TEMP 36.6; O2SAT 97; BMI 31.9
--- NOTE | 2022-09-27 15:17 | ECG_ITS ---
Test Reason : GENERAL MEDICAL Blood Pressure : / mmHG Vent. Rate : 077 BPM Atrial Rate : 077 BPM P-R Int : 140 ms QRS Dur : 086 ms QT Int : 396 ms P-R-T Axes : 050 047 -25 degrees QTc Int : 448 ms Normal sinus rhythm Nonspecific T wave abnormality Abnormal ECG When compared with ECG of 06-SEP-2021 15:53, No significant change was found Referred By: Laura Powell Electronically Signed By:LEIF ALCANTAR MD
[2022-09-27 15:44] LABS: MANUAL DIFF FLAG NO
[2022-09-27 15:49] LABS: Basophils Absolute Auto 0.1 X10*3/uL (0.0-0.2); Basophils Percent Auto 0.7 % (0-2); Eosinophils Absolute Auto 0.2 X10*3/uL (0.0-0.4); Eosinophils Percent Auto 2.4 % (0-4); Hematocrit 38.8 % (42.0-52.0); Hemoglobin 12.6 g/dl (14.0-18.0); Imm Gran Abs Auto 0.02 X10*3/uL (0.00-0.03); Imm Gran Pct Auto 0.3 % (0.0-0.4); Lymphocytes Absolute Auto 1.6 X10*3/uL (1.2-4.9); Lymphocytes Percent Auto 22.1 % (20-40); Mean Corpuscular HGB Conc 32.5 g/dl (31.0-36.0); Mean Corpuscular Hemoglobin 25.1 pg (27.0-33.0); Mean Corpuscular Volume 77.3 fL (80.0-98.0); Mean Platelet Volume 11.6 fL (9.4-12.4); Monocytes Absolute Auto 0.5 X10*3/uL (0.1-1.2); Monocytes Percent Auto 6.5 % (2-11); Neutrophils Absolute Auto 5.1 x10*3/uL (2.0-8.3); Platelet Count 233 X10*3/uL (160-400); Red Blood Count 5.02 X10*6/uL (4.60-5.80); Red Cell Distribution Width 13.3 % (11.0-16.0); White Blood Count 7.4 X10*3/uL (4.8-10.8)
[2022-09-27 16:20] LABS: Troponin-I High Sensitivity 37.8 ng/L (<3.5-35.0)
[2022-09-27 16:38] LABS: Alanine Aminotransferase 23 U/L (0-40); Albumin Level 3.4 g/dL (3.5-5.0); Alkaline Phosphatase 99 U/L (39-117); Anion Gap 13 (12-20); Aspartate Amino Transferase 16 U/L (5-37); Bilirubin Direct < 0.2 mg/dL (0.0-0.5); Bilirubin Total 0.1 mg/dL (0.0-1.0); Blood Urea Nitrogen 14 mg/dL (9-16); Calcium 9.1 mg/dL (8.4-10.2); Carbon Dioxide 23 mmol/L (22-29); Chloride 103 mmol/L (96-108); Creatinine Clr Calc Pharmacy 70.8; Estimated Glomerular Filt Rate 54; Ethanol < 10 mg/dL; Glucose Random 416 mg/dL (60-115); Magnesium 1.9 mg/dL (1.6-2.6); Potassium 4.5 mmol/L (3.3-5.1); Sodium 134 mmol/L (135-145); Total Protein 7.3 g/dL (6.5-8.0)
[2022-09-27 17:27] LABS: Appearance Urine Clear; Color Urine Yellow; Glucose Urine UA >=1000 mg/dL (Negative); Leukocyte Esterase Urine Moderate (2+) (Negative); Nitrite Urine Negative (Negative); Specific Gravity - Urine >= 1.030 (1.005-1.025); UMIC TRIGGER UACC YES; Urine Blood Negative (Negative); Urine Ketones Negative (Negative); Urine Protein 30 (1+) mg/dL (Neg-Trace)
[2022-09-27 17:50] LABS: Bacteria Urine 4+ (None Seen); Hyaline Casts Urine 0-2 /LPF (0-2); RBC Urine >20 /HPF (0-2); UACC Culture Trigger YES
[2022-09-27 18:00] LABS: Amphetamine Screen Urine Not Detected (Not Detect); Barbiturates, Urine Not Detected (Not Detect); Benzodiazepines Screen Urine Not Detected (Not Detect); Cannabinoid Screen Urine POSITIVE (Not Detect); Cocaine Screen Urine POSITIVE (Not Detect); Fentanyl, urine Not Detected (Not Detect); Opiate Screen Urine Not Detected (Not Detect); Phencyclidine Screen Urine Not Detected (Not Detect)
--- NOTE | 2022-09-27 18:37 | ED_ITS ---
HPI - General Adult General Chief complaint: Dizziness Stated complaint: Dizzy per EMS Time Seen by Provider: 09/27/22 18:33 Source: patient, family (Patient's [id number]), RN notes reviewed, old records reviewed and parts interpreter Mode of arrival: EMS Limitations: language barrier History of Present Illness HPI narrative: 52-year-old male with past medical history significant for diabetes, schizophrenia, hepatitis C, bipolar disorder, hypertension, peripheral artery disease presents for evaluation of dizziness Patient reports his symptoms started this morning. He called EMS because he almost fell Per the patient's [id number] the patient gets dizzy frequently. She reports that he had a healing abscess to his forehead that has been draining for the last few days She is concerned because he has a history of MRSA and sepsis related to a wound to his right 5th toe that was previously amputated The patient denies any pain, denies any fevers or chills He reports that he is hungry His blood sugars have been elevated as well She has no other complaints or concerns at this time Per the patient's [id number] the patient is illiterate Related Data Previous Rx's Medication Instructions Recorded aspirin 81 mg tablet,delayed 81 mg PO DAILY 30 days #30 tabs 10/10/21 release cane #1 ea 10/10/21 clonidine HCl 0.1 mg tablet 0.1 mg PO BID #60 tabs 10/10/21 lisinopril 10 mg tablet 20 mg PO DAILY #60 tabs 10/10/21 oxcarbazepine 300 mg tablet 300 mg PO BEDTIME #30 tabs 10/10/21 oxycodone 5 mg capsule 5 mg PO TID PRN moderate pain 01/15/22 (scale score 5-6) #30 caps vancomycin 1,000 mg intravenous 1,000 mg IV Q12H #10 ea 01/15/22 injection risperidone 2 mg tablet (Risperdal) 2 mg PO BID #60 tabs 03/24/22 amoxicillin 875 mg-potassium 1 tab PO Q12H 10 days #20 tabs 04/19/22 clavulanate 125 mg tablet tramadol 50 mg tablet 50 mg PO TID PRN pain #10 tabs 04/19/22 amlodipine 10 mg tablet 10 mg PO DAILY 30 days #30 tabs 04/30/22 blood sugar diagnostic (FreeStyle #100 ea 04/30/22 Lite Strips) blood-glucose meter (FreeStyle #1 ea 04/30/22 Lite Meter kit) lancets 28 gauge (FreeStyle #100 ea 05/06/22 Lancets) insulin human U-100 NPH-regulr 1 sliding scale dose subcut 06/05/22 70-30 mix 100 unit/mL subcutaneous USEASDIRECTD 30 days #30 mL susp clopidogrel 75 mg tablet 75 mg PO DAILY 30 days #90 tabs 08/28/22 nitrofurantoin 100 mg PO Q12H 7 days #14 caps 09/27/22 monohydrate/macrocrystals 100 mg capsule (Macrobid) Allergies Allergy/AdvReac Type Severity Reaction Status Date / Time No Known Allergies Allergy Verified 04/30/22 10:23 Review of Systems Constitutional: Constitutional: Reports as per HPI, Denies chills, Denies fever(s) and Denies headache(s) ENT: Denies headache(s) Cardiovascular: Cardiovascular: Denies chest pain and Denies dyspnea Respiratory: Respiratory: Denies cough and Denies dyspnea Gastrointestinal: Gastrointestinal: Denies abdominal pain, Denies constipation and Denies vomiting Genitourinary: Genitourinary: Denies difficulty urinating and Denies dysuria Integumentary/Breasts: Skin/Breast: Reports wounds Neurologic: Denies headache(s) [facility] Past Medical History Medical History Broken toe Diabetes HCV (hepatitis C virus) Hypertension Osteomyelitis PAD (peripheral artery disease) Schizoaffective disorder Family History Family History Father Diabetes mellitus Social History Social History Household Members: Family Household Members Other:: Friend Housing: House Do you presently have visiting nurse or other home services: No Alcohol intake: former Patient Tobacco Use Status: Former Tobacco user Quit Date: 08/07/21 Smoked in Last 30 Days: No Use of substances other than those prescribed or required for medical reasons: Yes Substance Use Type: Marijuana Substance Use Frequency: Occasionally Advance Directives: No Advance Directives Information Provided: No service: No Current occupational status: unemployed Physical Exam ED Vital Signs: Vital Signs - 24 hr 09/27/22 15:07 09/27/22 23:05 Temperature 97.8 F 98.2 F Pulse Rate 78 89 Respiratory Rate 18 19 Blood Pressure 136/65 152/76 H Pulse Oximetry 97 99 Oxygen Delivery Method Room Air Room Air BMI result Body Mass Index 31.9 Const General: healthy appearing, comfortable, no acute distress, alert and awake Nutritional Appearance: well nourished Orientation/consciousness: patient oriented x3 HENMT Head: Yes normocephalic and Yes atraumatic Eyes Eyelids: Yes eyelids normal Conjunctivae: conjunctivae normal Sclerae: sclerae normal Corneas: corneas normal Pupils: Equal, round and reactive pupils present EOM: EOMs intact bilaterally Neck Neck: Yes full ROM Resp Effort & Inspection: normal respiratory effort, able to speak in complete sentences, no audible wheezes and not labored Auscultation: clear to auscultation bilaterally Cardio Rate: regular rate Rhythm: regular rhythm GI Inspection: No distended Palpation (GI): Soft to palpation, not firm, nontender, no guarding and not rigid Auscultation: normoactive bowel sounds Skin Other: Patient has an avidly healing abscess just of his hairline the center of his forehead. There is minimal surrounding erythema, no obvious drainage at time. The wound remains slightly open no fluctuance. General skin exam: no rashes or lesions noted and elasticity normal Neuro General: patient oriented x3 Cranial nerves: Yes Equal, round and reactive pupils present and Yes Bilaterally intact EOM present Cognition (Neuro): normal cognition Extrem Other: Moving all extremities well without any obvious deformities with the exception of amputated right 5th toe Course Reevaluation(s) Reevaluation #1: Patient requesting discharge, he is still hungry he reports that he is asymptomatic at this time. His troponin was essentially flat. His glucose decreased nicely down to 151. He is stable for discharge at this time Time: 23:07 Medications Administered Discontinued Medications Generic Name Dose Route Start Last Admin Trade Name Freq PRN Reason Stop Dose Admin Sodium Chloride 1,000 mls @ 999 mls/hr 09/27/22 19:00 09/27/22 19:09 Ns IV 09/27/22 20:00 999 mls/hr .Q1H1M SANTI Administration Insulin Human Regular 5 unit 09/27/22 18:58 09/27/22 19:14 Insulin Regular, Human 100 Unit/Ml 3 Ml Vial IVPUSH 09/27/22 18:59 5 unit ONCE ONE Administration Medical Decision Making Medical Decision Making [facility] Narrative: 52-year-old male presents for evaluation of dizziness. He reports still feeling somewhat dizzy but has a negative cerebellar exam. His blood sugars still elevated to over 400. Will treat the patient's blood sugar and re-evaluate. There is no evidence of DKA. The patient denies any chest pain but his troponin was elevated at 37.8. Will repeat fluids. His EKG is nonischemic. Patient had a mild pseudo hyponatremia. Differential Diagnosis Hyperglycemia HHS DKA Cellulitis Abscess Cardiac arrhythmia NSTEMI Admission/Observation Consideration of admission/observation: Escalation of care including admission/observation considered Elevated troponin, hyperglycemic, UTI Lab Data [facility] Lab Attestation statement: I reviewed the patient's lab results. No leukocytosis, mild anemia with a hemoglobin of 12.6 and hematocrit of 38.8. Pseudo hyponatremia with a sodium of 134 but a blood sugar 416. Anion gap within normal limits. Bicarb within normal limits, no evidence of DKA 09/27/22 15:38 09/27/22 15:38 Labs: Lab Results 09/27/22 09/27/22 09/27/22 Range/Units 15:38 15:38 15:38 WBC 7.4 (4.8-10.8) X10*3/uL RBC 5.02 (4.60-5.80) X10*6/uL Hgb 12.6 L (14.0-18.0) g/dl Hct 38.8 L (42.0-52.0) % MCV 77.3 L (80.0-98.0) fL MCH 25.1 L (27.0-33.0) pg MCHC 32.5 (31.0-36.0) g/dl RDW 13.3 (11.0-16.0) % Plt Count 233 (160-400) X10*3/uL MPV 11.6 (9.4-12.4) fL Immature Gran % (Auto) 0.3 (0.0-0.4) % Neut % (Auto) 68.0 (45-73) % Lymph % (Auto) 22.1 (20-40) % [place] % (Auto) 6.5 (2-11) % Eos % (Auto) 2.4 (0-4) % Baso % (Auto) 0.7 (0-2) % Lymph # (Auto) 1.6 (1.2-4.9) X10*3/uL [place] # (Auto) 0.5 (0.1-1.2) X10*3/uL Eos # (Auto) 0.2 (0.0-0.4) X10*3/uL Baso # (Auto) 0.1 (0.0-0.2) X10*3/uL Abs Immat Gran (auto) 0.02 (0.00-0.03) X10*3/uL Absolute Neuts (auto) 5.1 (2.0-8.3) x10*3/uL Absolute Nucleated RBC 0.000 (0.0-0.012) X10*3/uL Nucleated RBC % (auto) 0.0 (0.0-0.2) /100WBC Sodium 134 L (135-145) mmol/L Potassium 4.5 (3.3-5.1) mmol/L Chloride 103 (96-108) mmol/L Carbon Dioxide 23 (22-29) mmol/L Anion Gap 13 (12-20) BUN 14 (9-16) mg/dL Creatinine 1.38 (0.5-1.4) mg/dL Estim Creat Clear Calc 70.8 Estimated GFR 54 POC Glucose (60-115) mg/dL Random Glucose 416 H* (60-115) mg/dL Calcium 9.1 (8.4-10.2) mg/dL Magnesium 1.9 (1.6-2.6) mg/dL Total Bilirubin 0.1 (0.0-1.0) mg/dL Direct Bilirubin < 0.2 (0.0-0.5) mg/dL AST 16 (5-37) U/L ALT 23 (0-40) U/L Alkaline Phosphatase 99 (39-117) U/L Troponin I High Sens 37.8 H (<3.5-35.0) ng/L Total Protein 7.3 (6.5-8.0) g/dL Albumin 3.4 L (3.5-5.0) g/dL Urine Color Urine Appearance Urine pH (5.0-9.0) Ur Specific [place] (1.005-1.025) Urine Protein (Neg-Trace) mg/dL Urine Glucose (UA) (Negative) mg/dL Urine Ketones (Negative) mg/dL Urine Blood (Negative) Urine Nitrite (Negative) Ur Leukocyte Esterase (Negative) Urine RBC (0-2) /HPF Urine WBC (0-5) /HPF Ur Squamous Epith Cells (0-2) /HPF Urine Bacteria (None Seen) Hyaline Casts (0-2) /LPF Urine Yeast Urine Opiates Screen (Not Detect) Urine Fentanyl Screen (Not Detect) Ur Barbiturates Screen (Not Detect) Ur Phencyclidine Scrn (Not Detect) Ur Amphetamines Screen (Not Detect) U Benzodiazepines Scrn (Not Detect) Urine Cocaine Screen (Not Detect) U Marijuana (THC) Screen (Not Detect) Ethyl Alcohol < 10 mg/dL 09/27/22 09/27/22 09/27/22 Range/Units 15:38 17:11 17:11 WBC (4.8-10.8) X10*3/uL RBC (4.60-5.80) X10*6/uL Hgb (14.0-18.0) g/dl Hct (42.0-52.0) % MCV (80.0-98.0) fL MCH (27.0-33.0) pg MCHC (31.0-36.0) g/dl RDW (11.0-16.0) % Plt Count (160-400) X10*3/uL MPV (9.4-12.4) fL Immature Gran % (Auto) (0.0-0.4) % Neut % (Auto) (45-73) % Lymph % (Auto) (20-40) % [place] % (Auto) (2-11) % Eos % (Auto) (0-4) % Baso % (Auto) (0-2) % Lymph # (Auto) (1.2-4.9) X10*3/uL [place] # (Auto) (0.1-1.2) X10*3/uL Eos # (Auto) (0.0-0.4) X10*3/uL Baso # (Auto) (0.0-0.2) X10*3/uL Abs Immat Gran (auto) (0.00-0.03) X10*3/uL Absolute Neuts (auto) (2.0-8.3) x10*3/uL Absolute Nucleated RBC (0.0-0.012) X10*3/uL Nucleated RBC % (auto) (0.0-0.2) /100WBC Sodium (135-145) mmol/L Potassium (3.3-5.1) mmol/L Chloride (96-108) mmol/L Carbon Dioxide (22-29) mmol/L Anion Gap (12-20) BUN (9-16) mg/dL Creatinine (0.5-1.4) mg/dL Estim Creat Clear Calc Estimated GFR POC Glucose (60-115) mg/dL Random Glucose (60-115) mg/dL Calcium (8.4-10.2) mg/dL Magnesium (1.6-2.6) mg/dL Total Bilirubin (0.0-1.0) mg/dL Direct Bilirubin (0.0-0.5) mg/dL AST (5-37) U/L ALT (0-40) U/L Alkaline Phosphatase (39-117) U/L Troponin I High Sens (<3.5-35.0) ng/L Total Protein (6.5-8.0) g/dL Albumin (3.5-5.0) g/dL Urine Color Yellow Urine Appearance Clear Urine pH 7.0 (5.0-9.0) Ur Specific [place] >= 1.030 H (1.005-1.025) Urine Protein 30 (1+) H (Neg-Trace) mg/dL Urine Glucose (UA) >=1000 H (Negative) mg/dL Urine Ketones Negative (Negative) mg/dL Urine Blood Negative (Negative) Urine Nitrite Negative (Negative) Ur Leukocyte Esterase Moderate (2+) H (Negative) Urine RBC >20 H (0-2) /HPF Urine WBC 11-20 H (0-5) /HPF Ur Squamous Epith Cells 6-10 (0-2) /HPF Urine Bacteria 4+ (None Seen) Hyaline Casts 0-2 (0-2) /LPF Urine Yeast Present Urine Opiates Screen Not Detected (Not Detect) Urine Fentanyl Screen Not Detected (Not Detect) Ur Barbiturates Screen Not Detected (Not Detect) Ur Phencyclidine Scrn Not Detected (Not Detect) Ur Amphetamines Screen Not Detected (Not Detect) U Benzodiazepines Scrn Not Detected (Not Detect) Urine Cocaine Screen POSITIVE H (Not Detect) U Marijuana (THC) Screen POSITIVE H (Not Detect) Ethyl Alcohol Cancelled mg/dL 09/27/22 09/27/22 Range/Units 22:25 22:38 WBC (4.8-10.8) X10*3/uL RBC (4.60-5.80) X10*6/uL Hgb (14.0-18.0) g/dl Hct (42.0-52.0) % MCV (80.0-98.0) fL MCH (27.0-33.0) pg MCHC (31.0-36.0) g/dl RDW (11.0-16.0) % Plt Count (160-400) X10*3/uL MPV (9.4-12.4) fL Immature Gran % (Auto) (0.0-0.4) % Neut % (Auto) (45-73) % Lymph % (Auto) (20-40) % [place] % (Auto) (2-11) % Eos % (Auto) (0-4) % Baso % (Auto) (0-2) % Lymph # (Auto) (1.2-4.9) X10*3/uL [place] # (Auto) (0.1-1.2) X10*3/uL Eos # (Auto) (0.0-0.4) X10*3/uL Baso # (Auto) (0.0-0.2) X10*3/uL Abs Immat Gran (auto) (0.00-0.03) X10*3/uL Absolute Neuts (auto) (2.0-8.3) x10*3/uL Absolute Nucleated RBC (0.0-0.012) X10*3/uL Nucleated RBC % (auto) (0.0-0.2) /100WBC Sodium (135-145) mmol/L Potassium (3.3-5.1) mmol/L Chloride (96-108) mmol/L Carbon Dioxide (22-29) mmol/L Anion Gap (12-20) BUN (9-16) mg/dL Creatinine (0.5-1.4) mg/dL Estim Creat Clear Calc Estimated GFR POC Glucose 151 H (60-115) mg/dL Random Glucose (60-115) mg/dL Calcium (8.4-10.2) mg/dL Magnesium (1.6-2.6) mg/dL Total Bilirubin (0.0-1.0) mg/dL Direct Bilirubin (0.0-0.5) mg/dL AST (5-37) U/L ALT (0-40) U/L Alkaline Phosphatase (39-117) U/L Troponin I High Sens 40.5 H (<3.5-35.0) ng/L Total Protein (6.5-8.0) g/dL Albumin (3.5-5.0) g/dL Urine Color Urine Appearance Urine pH (5.0-9.0) Ur Specific [place] (1.005-1.025) Urine Protein (Neg-Trace) mg/dL Urine Glucose (UA) (Negative) mg/dL Urine Ketones (Negative) mg/dL Urine Blood (Negative) Urine Nitrite (Negative) Ur Leukocyte Esterase (Negative) Urine RBC (0-2) /HPF Urine WBC (0-5) /HPF Ur Squamous Epith Cells (0-2) /HPF Urine Bacteria (None Seen) Hyaline Casts (0-2) /LPF Urine Yeast Urine Opiates Screen (Not Detect) Urine Fentanyl Screen (Not Detect) Ur Barbiturates Screen (Not Detect) Ur Phencyclidine Scrn (Not Detect) Ur Amphetamines Screen (Not Detect) U Benzodiazepines Scrn (Not Detect) Urine Cocaine Screen (Not Detect) U Marijuana (THC) Screen (Not Detect) Ethyl Alcohol mg/dL Prescription Management I considered prescription management with: Antibiotic Chronic Conditions Patient?s care impacted by: Diabetes Discharge Plan Discharge Clinical Impression: Acute hyperglycemia, Dizziness, Acute UTI Patient Disposition: Home, Self-Care Instructions: Diabetic Hyperglycemia (ED) Additional Instructions: Make sure your taking all of your medications as prescribed and checking your blood sugar regularly Drink lots of fluids to stay hydrated Your workup in the emergency department today was significant for a very elevated blood sugar This was treated with IV fluids and insulin Your urine did show evidence of a UTI, so take Macrobid twice daily for 7 days Follow-up with your primary doctor Prescriptions: New nitrofurantoin monohyd/m-cryst [Macrobid] 100 mg capsule 100 mg PO Q12H 7 Days Qty: 14 0RF Rx Instructions: must administer with a meal/food No Action risperidone [Risperdal] 2 mg tablet 2 mg PO BID Qty: 60 8RF (DME) lancets [FreeStyle Lancets] 28 gauge misc See Rx Instructions .Route Qty: 100 4RF Rx Instructions: Blood glucose check morning and evening insulin NPH and regular human 100 unit/mL (70-30) suspension 1 sliding scale dose subcut USEASDIRECTD 30 Days Qty: 30 4RF Rx Instructions: 45 units SQ QAM 50 units SQ QPM clopidogrel 75 mg tablet 75 mg PO DAILY 30 Days Qty: 90 0RF Rx Instructions: stent placed 09/05/21 will need for one year or longer vancomycin 1,000 mg recon soln 1,000 mg IV Q12H Qty: 10 0RF Rx Instructions: end feb 18, 2022 oxycodone 5 mg capsule 5 mg PO TID PRN (Reason: moderate pain (scale score 5-6)) Qty: 30 0RF Rx Instructions: Partial Fill upon patient request. amoxicillin-pot clavulanate 875-125 mg tablet 1 tab PO Q12H 10 Days Qty: 20 0RF tramadol 50 mg tablet 50 mg PO TID PRN (Reason: pain) Qty: 10 0RF aspirin 81 mg tablet,delayed release (DR/EC) 81 mg PO DAILY 30 Days Qty: 30 8RF clonidine HCl 0.1 mg tablet 0.1 mg PO BID Qty: 60 8RF lisinopril 10 mg tablet 20 mg PO DAILY Qty: 60 8RF oxcarbazepine 300 mg tablet 300 mg PO BEDTIME Qty: 30 8RF (DME) cane Device See Rx Instructions .Route Qty: 1 0RF Rx Instructions: As directed amlodipine 10 mg tablet 10 mg PO DAILY 30 Days Qty: 30 8RF (DME) blood-glucose meter [FreeStyle Lite Meter] Kit See Rx Instructions .ROUTE .MEDSUPPLY Qty: 1 0RF Rx Instructions: As directed (DME) FreeStyle Lite Strips Strip See Rx Instructions .ROUTE .MEDSUPPLY Qty: 100 4RF Rx Instructions: As directed TID
[2022-09-27] MEDS: 0.9 % Sodium Chloride 1,000 ML 999 ML IV (19:09)
[2022-09-27] MEDS: Insulin Regular, Human 100 UNIT/ML 3 ML VIAL IVPUSH (19:14)
[2022-09-27 22:46] LABS: Glucose, Whole Blood 151 mg/dL (60-115)
[2022-09-27 23:03] LABS: Troponin-I High Sensitivity 40.5 ng/L (<3.5-35.0)
[2022-09-27 23:05] VITALS: BP 152/76; PULSE 89; RESP 19; TEMP 36.8; O2SAT 99
== END 2022-09-27 23:47 | disposition home or self-care (01) ==
PROVIDERS: Physician Assistant; Emergency Provider Emergency Medicine
DX: E11.65 Type 2 diabetes mellitus with hyperglycemia (principal); R42 Dizziness and giddiness; N39.0 Urinary tract infection, site not specified; R94.31 Abnormal electrocardiogram [ECG] [EKG]; Z79.899 Other long term (current) drug therapy; Z79.4 Long term (current) use of insulin; Z87.891 Personal history of nicotine dependence
CPT/HCPCS: 36415; 80048; 80076; 80307; 81001; 82947; 83735; 84484; 85025; 87086; 93005; 99284; 99285

== ENCOUNTER → 2022-09-27 15:17 | Outpatient (BNV) | payer OTHER, SELFPAY | PROVIDERS: Emergency Provider Emergency Medicine; Visit Provider Internal Medicine Cardiovascular Disease | DX: R42 Dizziness and giddiness (principal) | CPT/HCPCS: 93010 ==

== ENCOUNTER 2022-11-11 10:34 | Outpatient (AMB) | payer OTHER, SELFPAY ==
[2022-11-11 10:41] VITALS: BP 132/78; PULSE 80; RESP 16; TEMP 36.8; O2SAT 98; BMI 36.0
--- NOTE | 2022-11-11 10:41 | A.OFFPC_ITS ---
Vital Signs 11/11/22 10:41 Height 5 ft 8 in Weight 236 lb 8 oz BMI 36.0 BP 132/78 Blood Pressure Location Rt brachial Position Sitting Respiration 16 Pulse 80 Pulse Source Pulse Oximeter Temp 98.2 F Temp Source Oral Pulse Oximetry (%) 98 Oxygen Delivery Method Room Air Intake Visit Reasons: Physical exam Intake Note: Patient is here for a physical today, needs A1C today. Body Service Team Member Required: Yes Body Service Team Member Name: [id number] Allergies No Known Allergies Allergy (Verified 11/11/22 10:49) Tobacco use date assessed: 11/11/22 Dental Screening Dental Screen Date: 11/11/22 Did you have a dental visit in the last 12 months?: No Did you have a dental problem in the last 6 months where you did not have access to dental care?: No Was dental information given to patient?: Yes HPI HPI Comments History of Present Illness Details 52-year-old Ukrainian-speaking male, accompanied by family member, presents for complete physical exam. He has h/o HTN, poorly controlled DM2. His last A1c was greater than 14%. He was referred to endocrinology, ophthalmology, and podiatry. He was last seen on 04/2022 and was encouraged to follow-up in 1 month. He states he has been taking NPH insulin 40 units twice daily instead of prescribed 45 units in the AM and 50 units in the PM. He notes that he was never contacted by endocrinology, opthalmology, and podiatry. According to Endocrinology, the patient was scheduled to be evaluated in July 2022 but was a no show. Also, he has h/o history of no show. No acute symptoms today. He was evaluated and treated at [facility] on 09/27/2022 for dizziness, elevated blood glucose, and UTI. [facility] Medical History Broken toe Diabetes HCV (hepatitis C virus) Hypertension Osteomyelitis PAD (peripheral artery disease) Schizoaffective disorder Family History Father Diabetes mellitus Social History Household Members: Family Household Members Other:: Friend Housing: House Do you presently have visiting nurse or other home services: No Alcohol intake: former Patient Tobacco Use Status: Former Tobacco user Quit Date: 08/07/21 e-Cigarette/Vaping Use: Never Used Substance Use Type: Marijuana service: No Current occupational status: unemployed Questionnaire Thrive Questionnaire Date Thrive assessed: 04/30/22 INESSA-7 AMB Questionnaire INESSA-7 Date INESSA - 7 assessed: 04/30/22 Source: Developed by Drs. Jonathan Smalls, Chary Hall, Escobar Gutierrez and colleagues, with an educational weston from [employer]. Review of Systems Const Details: Const Denies chills, Denies fatigue, Denies fever(s), Denies headache(s) and Denies weakness ENT Denies dizziness and Denies headache(s) Card Denies chest pain, Denies lightheadedness, Denies dyspnea and Denies other (Palpitations) Resp Denies cough, Denies dyspnea, Denies wheezing and Denies other ( shortness of breath) GI Denies abdominal pain, Denies melena, Denies hematochezia, Denies change in bowel habits, Denies dyspepsia and Denies nausea Denies hematuria and Denies dysuria Musc Denies abnormal gait, Denies myalgias, Denies arthralgias, Denies numbness and Denies tingling Skin/Breast Denies rash, Denies unusual bruising and Denies wounds Neuro Denies abnormal gait, Denies dizziness, Denies headache(s), Denies memory loss, Denies numbness, Denies Sensory deficit (Neuro), Denies tingling and Denies weakness Psych Denies anxiety, Denies depression, Denies memory loss Endo Denies cold intolerance, Denies fatigue, Denies heat intolerance, Denies polydipsia and Denies polyuria Aller/Immun Denies wheezing Physical exam (Primary Care) Vital Signs: Last Vital Signs Temp 98.2 F 11/11/22 10:41 Pulse 80 11/11/22 10:41 Resp 16 11/11/22 10:41 BP 132/78 11/11/22 10:41 Pulse Ox 98 11/11/22 10:41 Oxygen Delivery Method Room Air 11/11/22 10:41 BMI result Body Mass Index 36.0 Tobacco/Smoking Status: Tobacco use Status Tobacco use date assessed 11/11/22 11/11/22 10:52 Patient Tobacco Use Status Former Tobacco user 11/11/22 10:43 e-Cigarette/Vaping Use Never Used 11/11/22 10:52 Thrive Assessment: Date of Thrive Assessment Date Thrive assessed 04/30/22 11/11/22 10:43 Const Other: General: no acute distress and well developed Nutritional Appearance: well nourished Orientation/consciousness: patient oriented x3 [facility] Head: Yes normocephalic and Yes atraumatic Eyes General: appearance normal, both eyes and all related structures Pupils: Equal, round and reactive pupils present EOM: EOMs intact bilaterally Resp Effort & Inspection: normal respiratory effort Auscultation: clear to auscultation bilaterally Cardio Rate: regular rate Rhythm: regular rhythm Heart sounds: S1 normal heart sound present, S2 normal heart sound present, no gallops, no murmurs and no rubs GI Palpation (GI): No Abdominal aortic bruit present, Soft to palpation, nontender, No hepatosplenomegaly present and No Rebound tenderness present Auscultation: normal bowel sounds General: Yes no CVA tenderness Back/Spine/Pelvis Back: no CVA tenderness Cervical Spine: cervical ROM normal and No Cervical spine tenderness Thoracic/Lumbar Spine: thoraco-lumbar ROM normal, No pain with thoraco-lumbar ROM, No thoracic spinal tenderness and No lumbar spinal tenderness Extrem General: Yes normal to inspection, No edema and No calf tenderness Skin General: warm and dry. Normal skin color. Normal skin turgor Lesions: no lesions Rashes: no rashes Trauma: no lacerations or abrasions Wounds: no wounds Nails: normal Neuro General: patient oriented x3, gait normal and no focal neuro deficit Cranial nerves: Yes Equal, round and reactive pupils present Cognition (Neuro): normal cognition Gait exam (Neuro): Normal gait present Sensory Exam: No Sensory deficit (Neuro) Psych Appearance: grossly normal Affect: normal affect Attitude: cooperative Thought process: Normal thought process present Results AMB Hemoglobin A1c AMB Hemoglobin A1c 14.0 % Last Edit by Salima Braswell CMA on 11/11/22 10:59 Results Reviewed Results Reviewed: Laboratory Last Values Hgb A1c (Clinic) 14.0 % (4.0-6.0) H 11/11/22 10:58 Assessment and Plan Assessment & Plan (1) Poorly controlled diabetes mellitus: Code(s): E11.65 - Type 2 diabetes mellitus with hyperglycemia Plan: His A1c today is greater than 14.0%, above goal of less than 7.0% Previous A1c was greater than 14.0% NPH insulin increased to 50 units twice daily. Advised to administer as prescribed Metformin ordered. Take as prescribed He was a no-show for his endocrinology appointment The MA well contact Endocrinology, Podiatry, and ophthalmology to follow-up with patient Referred to the nurse navigator ADA diet and routine exercise encouraged Will check lipid levels. Lipid panel ordered. Advised to fast for at least 10- 12 hours and get blood work done before next visit Advised to check blood glucose 3 times a day, documented readings, and bring to next appointment Follow-up in 1 month or return sooner with symptoms or concerns Verbalized understanding and agreed with treatment plan. Professional payroll and benefits assistant utilized via electronic tablet. (2) Hypertension: Code(s): I10 - Essential (primary) hypertension Plan: Blood pressure is 132/78, slightly above goal of less than 130/80 Amlodipine and lisinopril as prescribed Low-sodium diet encouraged Follow-up in 1 month Verbalized understanding and agreed with treatment plan. Orders: Orders Lipid Panel 11/11/22 E11.65 - Type 2 diabetes mellitus with hyperglycemia AMB Hemoglobin A1c 11/11/22 Z13.9 - Encounter for screening, unspecified Referrals Nurse Navigator Referral E11.65 - Type 2 diabetes mellitus with hyperglycemia Medications: New metformin 1,000 mg PO BID 30 days 60 tabs 3RF Coding Level of Care Code Est Pt Level 4 (69394) Diagnoses Poorly controlled diabetes mellitus E11.65 Hypertension I10
== END 2022-11-11 11:30 | disposition home or self-care (01) ==
PROVIDERS: PCP Hospitalist; Visit Provider Nurse Practitioner Family
DX: E11.65 Type 2 diabetes mellitus with hyperglycemia (principal)
CPT/HCPCS: 83036; 99214

== ENCOUNTER 2022-12-16 09:39 | Emergency (ER) | payer OTHER, SELFPAY ==
[2022-12-16 10:27] VITALS: BP 158/85; PULSE 90; RESP 17; TEMP 36.1; O2SAT 98; BMI 34.2
--- NOTE | 2022-12-16 11:19 | ED.GENADULT ---
HPI - General Adult General Chief complaint: Skin/Abscess/Foreign Body Stated complaint: Lump under L armpit/Lump R foot Time Seen by Provider: 12/16/22 11:19 Source: patient, family (patient's sister) and division traffic superintendent Mode of arrival: ambulatory Limitations: language barrier History of Present Illness HPI narrative: Patient is a 52 year old assigned male at with a history of DM presenting to the emergency department today with an abscess in his left axilla and a right 2nd toe ulcer. Patient states that over the last 4 days he noticed an open area draining pus in his left under arm and a new wound to the lateral aspect of his right 2nd toe. Patient denies any dizziness, lightheadedness, abdominal pain, nausea, vomiting, fever, chills, blurry vision, double vision, loss of vision, chest pain, difficulty breathing, shortness of breath, back pain, night sweats, pain with urination, increased urinary frequency, increased urinary urgency, blood in his urine or stool, syncope or a near syncopal episode, recent trauma or falls, bowel incontinence, bladder incontinence, bowel retention, bladder retention, or any other complaints at this time. Onset (ago): day(s) (4) Severity: mild Severity scale (1-10): 3 Relieving factors: none Exacerbating factors: none Associated symptoms: denies other symptoms Treatments prior to arrival: none Related Data Previous Rx's Medication Instructions Recorded aspirin 81 mg tablet,delayed 81 mg PO DAILY 30 days #30 tabs 10/10/21 release cane #1 ea 10/10/21 clonidine HCl 0.1 mg tablet 0.1 mg PO BID #60 tabs 10/10/21 lisinopril 10 mg tablet 20 mg (2 x 10 mg) PO DAILY #60 tabs 10/10/21 oxcarbazepine 300 mg tablet 300 mg PO BEDTIME #30 tabs 10/10/21 oxycodone 5 mg capsule 5 mg PO TID PRN moderate pain 01/15/22 (scale score 5-6) #30 caps vancomycin 1,000 mg intravenous 1,000 mg IV Q12H #10 ea 01/15/22 injection risperidone 2 mg tablet (Risperdal) 2 mg PO BID #60 tabs 03/24/22 tramadol 50 mg tablet 50 mg PO TID PRN pain #10 tabs 04/19/22 amlodipine 10 mg tablet 10 mg PO DAILY 30 days #30 tabs 04/30/22 blood sugar diagnostic (FreeStyle #100 ea 04/30/22 Lite Strips) blood-glucose meter (FreeStyle #1 ea 04/30/22 Lite Meter kit) lancets 28 gauge (FreeStyle #100 ea 05/06/22 Lancets) insulin human U-100 NPH-regulr 1 sliding scale dose subcut 06/05/22 70-30 mix 100 unit/mL subcutaneous USEASDIRECTD 30 days #30 mL susp nitrofurantoin 100 mg PO Q12H 7 days #14 caps 09/27/22 monohydrate/macrocrystals 100 mg capsule (Macrobid) metformin 1,000 mg tablet 1,000 mg PO BID 30 days #60 tabs 11/11/22 clopidogrel 75 mg tablet 75 mg PO DAILY 30 days #90 tabs 12/09/22 cephalexin 500 mg capsule 500 mg PO Q6H 7 days #28 caps 12/16/22 doxycycline hyclate 100 mg tablet 100 mg PO BID 7 days #14 tabs 12/16/22 Allergies Allergy/AdvReac Type Severity Reaction Status Date / Time No Known Allergies Allergy Verified 11/11/22 10:49 Review of Systems Constitutional: Constitutional: Reports no additional constitutional complaints, Denies chills, Denies fever(s) and Denies night sweats Eyes: Eyes: Reports no additional eye complaints, Denies blurry vision, Denies change in vision, Denies diplopia, Denies eye discharge, Denies loss of vision and Denies eye pain ENT: Denies dizziness Cardiovascular: Cardiovascular: Reports no additional cardiovascular complaints, Denies chest pain, Denies lightheadedness, Denies Loss of Consciousness and Denies dyspnea Respiratory: Respiratory: Reports no additional respiratory complaints and Denies dyspnea Gastrointestinal: Gastrointestinal: Reports no additional gastrointestinal complaints, Denies abdominal pain, Denies melena, Denies hematochezia, Denies change in bowel habits and Denies change in stool character Genitourinary: Genitourinary: Reports no additional male genitourinary complaints, Denies hematuria, Denies oliguria, Denies difficulty urinating, Denies dysuria, Denies urinary frequency, Denies urinary hesitancy, Denies urinary incontinence and Denies urinary urgency Musculoskeletal: Musculoskeletal: Reports no additional musculoskeletal complaints, Denies numbness and Denies tingling Integumentary/Breasts: Comments: open area of drainage to the left under arm, small wound to the right 2nd toe Neurologic: Denies dizziness, Denies loss of vision, Denies numbness and Denies tingling Psychiatric: Psychiatric: Reports no additional psychiatric complaints Endocrine: Endocrine: Reports no additional endocrine complaints Hematologic/Lymphatic: Hematologic/Lymphatic: Reports no additional hematologic/lymphatic complaints Allergic/Immunologic: Allergic/Immunologic: Reports no additional allergic/immunologic complaints PMFSH Past Medical History Attestation statement: The following information was validated with the patient. (all information validated with the patient's sister) Source: old records reviewed, obtained from family (patient's sister provided additional history and confirmed the history provided by the patient.) and nursing notes reviewed Medical History Poorly controlled diabetes mellitus Sepsis Osteomyelitis Hyperglycemia Hyponatremia Infected sebaceous cyst OBEY (acute kidney injury) Acute on chronic osteomyelitis Right foot ulcer Cellulitis of right lower extremity Broken toe PAD (peripheral artery disease) Schizoaffective disorder HCV (hepatitis C virus) Hypertension Diabetes Osteomyelitis Family History Family History Father Diabetes mellitus Social History Social History Household Members: Family Household Members Other:: Friend Housing: House Do you presently have visiting nurse or other home services: No Alcohol intake: former Patient Tobacco Use Status: Former Tobacco user Quit Date: 08/07/21 e-Cigarette/Vaping Use: Never Used Substance Use Type: Marijuana Advance Directives: No Advance Directives Information Provided: Yes service: No Current occupational status: unemployed Physical Exam ED Vital Signs: Vital Signs - 24 hr 12/16/22 10:27 Temperature 97.0 F Pulse Rate 90 Respiratory Rate 17 Blood Pressure 158/85 H Pulse Oximetry 98 BMI result Body Mass Index 34.2 Const General: cooperative, no acute distress, alert and awake Nutritional Appearance: well nourished Orientation/consciousness: patient oriented x3 Limitations: no limitations HENMT Head: Yes normal to inspection and Yes atraumatic Ears: hearing grossly normal bilaterally and external ears normal General nose exam: Normal external nose present, no nasal discharge noted and no epistaxis Face and sinus: Yes normal facial exam, No abrasion and No laceration Mouth: Normal oral and palatal mucosa present, no drooling and no muffled voice Eyes General: appearance normal, both eyes and all related structures Periorbital: periorbital findings normal Eyelids: Yes eyelids normal Conjunctivae: conjunctivae normal Pupils: Equal, round and reactive pupils present EOM: EOMs intact bilaterally Neck Neck: Yes normal visual inspection, Yes full ROM and Yes no lymphadenopathy Chest Chest palpation & inspection: normal inspection of the chest Resp Effort & Inspection: normal respiratory effort and able to speak in complete sentences GI Inspection: Yes normal to inspection Skin Other: small abscess to the left axilla that is actively draining purulent discharge. Small ulcer to the lateral aspect of the second toe, appears chronic in nature, no active drainage or eryhthema. Neuro General: patient oriented x3 and moves all extremities Cranial nerves: Yes Equal, round and reactive pupils present Cognition (Neuro): normal cognition Motor exam (neuro): 5/5 motor strength present throughout Sensory Exam: Normal double simultaneous stimulation for sensation Coordination: [id number]-[id number] test normal Extrem General: Yes normal to inspection, Yes full ROM and Yes capillary refill normal Psych Appearance: grossly normal Mental Status: mental status grossly normal Affect: normal affect Attitude: cooperative Thought process: Normal thought process present Thought content: Normal thought content present Insight: Good insight present (Psych) Medications Administered Discontinued Medications Generic Name Dose Route Start Last Admin Trade Name Freq PRN Reason Stop Dose Admin Ketorolac Tromethamine 15 mg 12/16/22 11:33 12/16/22 12:06 Ketorolac Tromethamine 15 Mg/Ml Vial IM 12/16/22 11:34 15 mg ONCE ONE Administration Medical Decision Making Medical Decision Making [facility] Narrative: Patient is a 52 year old assigned male at with a history of DM presenting to the emergency department today with a left underarm abscess and a right 2nd toe wound. Patient's physical exam was as noted in the physical exam portion of this note. Patient's clinical presentation is not consistent with sepsis or osteomyelitis (@11:45). I explained my physical exam findings to the patient and the patient's sister. I answered all questions asked by the patient and the patient's sister. I stressed the importance of the patient taking his medication as prescribed. I stressed the importance of the patient following up with his primary care provider, the wound center for the chronic appear right 2nd toe wound, and a general surgeons office for possible repeat I&D of the left axillary abscess. I stressed the importance of the patient returning to the emergency department immediately if his symptoms were to worsen or if he were to develop any dizziness, shortness of breath, difficulty breathing, chest pain, blurry vision, loss of vision, nausea, vomiting, abdominal pain, fever, chills, back pain, or any other complaints. Patient and the patient's sister verbalized agreement and understanding with this treatment plan and discharge. Differential Diagnosis Differential Diagnoses: The differential diagnosis associated with the presentation includes Left axillary abscess Chronic 2nd toe wound Independent Historian Clinical information obtained from an independent historian. History obtained from or confirmed by: Other (patient's sister provided additional history and confirmed the history provided by the patient.) Prescription Management I considered prescription management with: Antibiotic (Patient prescribed 2 antibiotics for infection in left axilla) Chronic Conditions Patient?s care impacted by: Diabetes Discharge Plan Discharge Clinical Impression: Abscess, Ulcer of toe Patient Disposition: Home, Self-Care Instructions: Abscess (ED) Additional Instructions: Follow up with your primary care provider, the wound center (for the toe wound), and the general surgeon (for the axilla abscess). Return to the emergency department immediately if your symptoms worsen or if you develop any dizziness, shortness of breath, difficulty breathing, chest pain, blurry vision, loss of vision, nausea, vomiting, abdominal pain, fever, chills, back pain, or any other complaints. Nora un seguimiento con hoff proveedor de atenci?n primaria, el centro de heridas (para la herida del dedo del pie) y el cirujano general (para el absceso de la axila). Regrese al departamento de emergencias inmediatamente si raeann s?ntomas empeoran o si presenta mareos, dificultad para respirar, dificultad para respirar, dolor en el pecho, visi?n borrosa, p?rdida de la visi?n, n?useas, v?mitos, dolor abdominal, fiebre, escalofr?os, dolor de espalda o cualquier otras quejas. Prescriptions: New cephalexin 500 mg capsule 500 mg PO Q6H 7 Days Qty: 28 0RF doxycycline hyclate 100 mg tablet 100 mg PO BID 7 Days Qty: 14 0RF No Action risperidone [Risperdal] 2 mg tablet 2 mg PO BID Qty: 60 8RF (DME) lancets [FreeStyle Lancets] 28 gauge misc See Rx Instructions .Route Qty: 100 4RF Rx Instructions: Blood glucose check morning and evening insulin NPH and regular human 100 unit/mL (70-30) suspension 1 sliding scale dose subcut USEASDIRECTD 30 Days Qty: 30 4RF Rx Instructions: 45 units SQ QAM 50 units SQ QPM clopidogrel 75 mg tablet 75 mg PO DAILY 30 Days Qty: 90 0RF Rx Instructions: stent placed 09/05/21 will need for one year or longer vancomycin 1,000 mg recon soln 1,000 mg IV Q12H Qty: 10 0RF Rx Instructions: end feb 18, 2022 oxycodone 5 mg capsule 5 mg PO TID PRN (Reason: moderate pain (scale score 5-6)) Qty: 30 0RF Rx Instructions: Partial Fill upon patient request. tramadol 50 mg tablet 50 mg PO TID PRN (Reason: pain) Qty: 10 0RF nitrofurantoin monohyd/m-cryst [Macrobid] 100 mg capsule 100 mg PO Q12H 7 Days Qty: 14 0RF Rx Instructions: must administer with a meal/food aspirin 81 mg tablet,delayed release (DR/EC) 81 mg PO DAILY 30 Days Qty: 30 8RF clonidine HCl 0.1 mg tablet 0.1 mg PO BID Qty: 60 8RF lisinopril 10 mg tablet 20 mg PO DAILY Qty: 60 8RF oxcarbazepine 300 mg tablet 300 mg PO BEDTIME Qty: 30 8RF (DME) cane Device See Rx Instructions .Route Qty: 1 0RF Rx Instructions: As directed amlodipine 10 mg tablet 10 mg PO DAILY 30 Days Qty: 30 8RF (DME) blood-glucose meter [FreeStyle Lite Meter] Kit See Rx Instructions .ROUTE .MEDSUPPLY Qty: 1 0RF Rx Instructions: As directed (DME) FreeStyle Lite Strips Strip See Rx Instructions .ROUTE .MEDSUPPLY Qty: 100 4RF Rx Instructions: As directed TID metformin 1,000 mg tablet 1,000 mg PO BID 30 Days Qty: 60 3RF Referrals: [facility] [place] [facility] [place] [Provider Group] (Call to establish and follow up with a general surgeon to address your left axilla abscess. Llame para establecer y realizar un seguimiento con un cirujano general para tratar hoff absceso en la axila izquierda.) [facility] [place] [place] Wound Care Management [Provider Group] (Call to establish and follow up with the wound center. Llame para establecer y realizar un seguimiento con el centro de heridas.) Mariel Mendez NP [Primary Care Provider] - Print Language: Sami
[2022-12-16] MEDS: Ketorolac Tromethamine 15 MG/ML VIAL IM (12:06)
== END 2022-12-16 12:16 | disposition home or self-care (01) ==
PROVIDERS: Emergency Provider Emergency Medicine; PCP Hospitalist
DX: L02.412 Cutaneous abscess of left axilla (principal); L97.511 Non-pressure chronic ulcer of other part of right foot limited to breakdown of skin; Z87.891 Personal history of nicotine dependence; Z79.899 Other long term (current) drug therapy
CPT/HCPCS: 96372; 99283; 99284; J1885

== ENCOUNTER 2023-03-13 11:30 | Emergency (ER) | payer OTHER, SELFPAY ==
[2023-03-13 12:10] VITALS: BP 108/64; PULSE 78; RESP 18; TEMP 36.9; O2SAT 100; BMI 38.7
[2023-03-13] MEDS: Lidocaine HCl 1 % MPF 5 ML VIAL 10 ML INFILTRATI (12:54)
--- NOTE | 2023-03-13 12:54 | PC.NURSE ---
lidocaine scanned/bedside for provider use when needed.
--- NOTE | 2023-03-13 12:55 | ED_ITS ---
HPI - Skin/Abscess/Foreign Bdy General Chief complaint: Skin/Abscess/Foreign Body Stated complaint: Abscess on back of head Time Seen by Provider: 03/13/23 12:17 Source: patient, RN notes reviewed and old records reviewed Mode of arrival: ambulatory History of Present Illness HPI narrative: 53-year-old male with a past medical history of osteomyelitis, OBEY, PAD, schizoaffective, hepatitis-C, HTN, diabetes, presenting to the ED today complaining of abscess/painful wound to left posterior scalp x several days. Admits to taking leftover antibiotics from previous abscess over the past 5-6 days. Denies fever/chills, drainage from area Related Data Previous Rx's Medication Instructions Recorded aspirin 81 mg tablet,delayed 81 mg PO DAILY 30 days #30 tabs 10/10/21 release cane #1 ea 10/10/21 clonidine HCl 0.1 mg tablet 0.1 mg PO BID #60 tabs 10/10/21 oxcarbazepine 300 mg tablet 300 mg PO BEDTIME #30 tabs 10/10/21 oxycodone 5 mg capsule 5 mg PO TID PRN moderate pain 01/15/22 (scale score 5-6) #30 caps vancomycin 1,000 mg intravenous 1,000 mg IV Q12H #10 ea 01/15/22 injection risperidone 2 mg tablet (Risperdal) 2 mg PO BID #60 tabs 03/24/22 tramadol 50 mg tablet 50 mg PO TID PRN pain #10 tabs 04/19/22 amlodipine 10 mg tablet 10 mg PO DAILY 30 days #30 tabs 04/30/22 blood sugar diagnostic (FreeStyle #100 ea 04/30/22 Lite Strips) blood-glucose meter (FreeStyle #1 ea 04/30/22 Lite Meter kit) lancets 28 gauge (FreeStyle #100 ea 05/06/22 Lancets) nitrofurantoin 100 mg PO Q12H 7 days #14 caps 09/27/22 monohydrate/macrocrystals 100 mg capsule (Macrobid) metformin 1,000 mg tablet 1,000 mg PO BID 30 days #60 tabs 11/11/22 clopidogrel 75 mg tablet 75 mg PO DAILY 30 days #90 tabs 12/09/22 cephalexin 500 mg capsule 500 mg PO Q6H 7 days #28 caps 12/16/22 doxycycline hyclate 100 mg tablet 100 mg PO BID 7 days #14 tabs 12/16/22 insulin human U-100 NPH-regulr 1 sliding scale dose subcut 12/20/22 70-30 mix 100 unit/mL subcutaneous USEASDIRECTD 30 days #30 mL susp lisinopril 10 mg tablet 20 mg (2 x 10 mg) PO DAILY #60 tabs 02/21/23 acetaminophen 500 mg tablet 500 mg PO Q6H PRN fever or pain 03/13/23 (Tylenol Extra Strength) #14 tabs cephalexin 500 mg capsule 500 mg PO QID 7 days #28 caps 03/13/23 doxycycline hyclate 100 mg tablet 100 mg PO BID 7 days #14 tabs 03/13/23 Allergies Allergy/AdvReac Type Severity Reaction Status Date / Time No Known Allergies Allergy Verified 11/11/22 10:49 Review of Systems 2 Review of Systems: Constitutional: No Fever, No Chills ENT/Mouth: No Ear Pain, No Nasal Congestion, No Sinus Pain, No Hoarseness, No sore throat, No Rhinorrhea, No Swallowing Difficulty Cardiovascular: No Chest Pain, No SOB Respiratory: No Cough, No Sputum, No Wheezing Musculoskeletal: No joint pain, No Myalgias, No Joint Swelling Skin: +Skin Lesions, No rash Neuro: No Weakness, No Numbness, No Paresthesias, +BRAMBILA Yes all other systems are reviewed and are negative Constitutional: Constitutional: Reports as per [facility] Past Medical History Attestation statement: The following information was validated with the patient. Source: old records reviewed Medical History Poorly controlled diabetes mellitus Sepsis Osteomyelitis Hyperglycemia Hyponatremia Infected sebaceous cyst OBEY (acute kidney injury) Acute on chronic osteomyelitis Right foot ulcer Cellulitis of right lower extremity Broken toe PAD (peripheral artery disease) Schizoaffective disorder HCV (hepatitis C virus) Hypertension Diabetes Osteomyelitis Family History Family History Father Diabetes mellitus Social History Social History Household Members: Family Household Members Other:: Friend Housing: House Do you presently have visiting nurse or other home services: No Alcohol intake: former Comment: previously medicated with fentanyl and oxycodone Patient Tobacco Use Status: Former Tobacco user Quit Date: 08/07/21 e-Cigarette/Vaping Use: Never Used Substance Use Type: Marijuana Advance Directives: No Advance Directives Information Provided: Yes service: No Current occupational status: unemployed Physical Exam 2 Vital Signs: Vital Signs: Last Vital Signs Temp 98.5 F 03/13/23 12:10 Pulse 78 03/13/23 12:10 Resp 18 03/13/23 12:10 BP 108/64 03/13/23 12:10 Pulse Ox 100 03/13/23 12:10 O2 Del Method Room Air 03/13/23 12:10 BMI result Body Mass Index 38.7 Const: General: cooperative, healthy appearing and no acute distress O rientation/consciousness: patient oriented x3 Limitations: no limitations HEENT: Other: Patient for to image above. Indurated abscess with surrounding cellulitis/erythema and warmth to left posterior scalp. Small amount of central fluctuance. No pointing. No active drainage. No crepitus Neck ROM intact with some discomfort Head: Yes atraumatic Ears: hearing grossly normal bilaterally General nose exam: Normal external nose present Face and sinus: Yes normal facial exam Mouth: Normal oral and palatal mucosa present and no drooling Eyes: General: appearance normal, both eyes and all related structures EOM: EOMs intact bilaterally Neck: Neck: Yes normal visual inspection and Yes no meningeal signs Resp: Effort & Inspection: normal respiratory effort, no respiratory distress and no stridor Cardio: Rate: regular rate Skin: Rashes: no rashes Neuro: General: patient oriented x3, tone normal and no meningeal signs C ranial nerves: Yes CN's II-XII intact bilaterally Gait exam (Neuro): Normal gait present Extrem: General: Yes normal to inspection Course Course Course Narrative: Results discussed with patient including worrisome signs and symptoms and strict return precautions, and when to return to the emergency department. They verbalized understanding and feel safe for discharge at this time. Medications Administered Discontinued Medications Generic Name Dose Route Start Last Admin Trade Name Hermiloq PRN Reason Stop Dose Admin Ketorolac Tromethamine 30 mg 03/13/23 13:26 03/13/23 13:44 Ketorolac Tromethamine 30 Mg/Ml Vial IM 03/13/23 13:27 30 mg ONCE ONE Administration Lidocaine HCl 10 ml 03/13/23 12:37 03/13/23 12:54 Lidocaine Hcl 1 % Mpf 5 Ml Vial INFILTRATI 03/13/23 12:38 10 ml ONCE ONE Administration Medical Decision Making Medical Decision Making MDM Narrative: 53-year-old male with a past medical history of osteomyelitis, OBEY, PAD, schizoaffective, hepatitis-C, HTN, diabetes, presenting to the ED today complaining of abscess/painful wound to left posterior scalp x several days. On exam vital signs stable, NAD, nontoxic appearing, physical exam as noted above. Please refer to image. Concern for abscess with cellulitis. Low suspicion for deeper edema/tracking infection. No intraoral involvement. Plan: I & D, p.o. antibiotics, close follow-up Please refer to course for remaining clinical decision making, interpretation of labs/imaging results, and discussions with consultants and/or family members. Differential Diagnosis Differential Diagnoses: The differential diagnosis associated with the presentation includes As above External Record Review External record reviewed: Inpatient record, Office record, Outpatient record, Prior outpatient labs, Prior outpatient radiology, Primary care record and Outside ED record Tests considered The following testing was considered but not selected: As above Prescription Management I considered prescription management with: Pain Medication and Antibiotic Chronic Conditions Patient?s care impacted by: Diabetes Procedures Abscess I/D Site: scalp Side (if applicable): left Local Anesthetic: lidocaine 1% Technique: incised with blade Sent for culture/gram staining?: No Packing used?: none Discharge Plan Discharge Clinical Impression: Abscess, Cellulitis Patient Disposition: Home, Self-Care Instructions: Cellulitis (DC), Abscess (ED), Warm Compress or Soak (ED) Additional Instructions: Your abscess was drained. Doxycycline and Keflex are antibiotics please take as prescribed Apply warm compresses It is normal for area to drain for the next 48 hours, we like this. However if worsens you develop fever/chills or unbearable pain return to the ED immediately Please have close follow-up with your doctor in 3 days for wound recheck Arteaga absceso fue drenado. La doxiciclina y el Keflex son antibi?ticos, t?melos seg?n lo prescrito. Aplicar compresas tibias Es normal que la rodger drene ray las pr?ximas 48 horas, esto nos gusta. Sin embargo, si empeora, presenta fiebre/escalofr?os o dolor insoportable, regrese al servicio de urgencias de inmediato. Nora un seguimiento estrecho con arteaga m?dico en 3 d?as para volver a revisar la herida. Prescriptions: New acetaminophen [Tylenol Extra Strength] 500 mg tablet 500 mg PO Q6H PRN (Reason: fever or pain) Qty: 14 0RF cephalexin 500 mg capsule 500 mg PO QID 7 Days Qty: 28 0RF doxycycline hyclate 100 mg tablet 100 mg PO BID 7 Days Qty: 14 0RF No Action risperidone [Risperdal] 2 mg tablet 2 mg PO BID Qty: 60 8RF (DME) lancets [FreeStyle Lancets] 28 gauge misc See Rx Instructions .Route Qty: 100 4RF Rx Instructions: Blood glucose check morning and evening clopidogrel 75 mg tablet 75 mg PO DAILY 30 Days Qty: 90 0RF Rx Instructions: stent placed 09/05/21 will need for one year or longer insulin NPH and regular human 100 unit/mL (70-30) suspension 1 sliding scale dose subcut USEASDIRECTD 30 Days Qty: 30 4RF Rx Instructions: 45 units SQ QAM 50 units SQ QPM lisinopril 10 mg tablet 20 mg PO DAILY Qty: 60 1RF vancomycin 1,000 mg recon soln 1,000 mg IV Q12H Qty: 10 0RF Rx Instructions: end feb 18, 2022 oxycodone 5 mg capsule 5 mg PO TID PRN (Reason: moderate pain (scale score 5-6)) Qty: 30 0RF Rx Instructions: Partial Fill upon patient request. tramadol 50 mg tablet 50 mg PO TID PRN (Reason: pain) Qty: 10 0RF nitrofurantoin monohyd/m-cryst [Macrobid] 100 mg capsule 100 mg PO Q12H 7 Days Qty: 14 0RF Rx Instructions: must administer with a meal/food cephalexin 500 mg capsule 500 mg PO Q6H 7 Days Qty: 28 0RF doxycycline hyclate 100 mg tablet 100 mg PO BID 7 Days Qty: 14 0RF aspirin 81 mg tablet,delayed release (DR/EC) 81 mg PO DAILY 30 Days Qty: 30 8RF clonidine HCl 0.1 mg tablet 0.1 mg PO BID Qty: 60 8RF oxcarbazepine 300 mg tablet 300 mg PO BEDTIME Qty: 30 8RF (DME) cane Device See Rx Instructions .Route Qty: 1 0RF Rx Instructions: As directed amlodipine 10 mg tablet 10 mg PO DAILY 30 Days Qty: 30 8RF (DME) blood-glucose meter [FreeStyle Lite Meter] Kit See Rx Instructions .ROUTE .MEDSUPPLY Qty: 1 0RF Rx Instructions: As directed (DME) FreeStyle Lite Strips Strip See Rx Instructions .ROUTE .MEDSUPPLY Qty: 100 4RF Rx Instructions: As directed TID metformin 1,000 mg tablet 1,000 mg PO BID 30 Days Qty: 60 3RF Referrals: ED Physician,[place] [Physician] - David Eric [Primary Care Provider] - 3 days (for wound re-check) Interventions: ED Discharge Assessment Last Done: 03/13/23 13:34 Discharge Date/Time: 03/13/23 13:51 Print Language: Danish
[2023-03-13] MEDS: Ketorolac Tromethamine 30 MG/ML VIAL IM (13:44)
--- NOTE | 2023-03-13 13:48 | PC.NURSE ---
medication administered per provider order,.
== END 2023-03-13 13:51 | disposition home or self-care (01) ==
PROVIDERS: Emergency Provider Emergency Medicine
DX: L02.811 Cutaneous abscess of head [any part, except face] (principal); L03.811 Cellulitis of head [any part, except face]; Z79.899 Other long term (current) drug therapy
CPT/HCPCS: 10060; 96372; 99283; 99284; J1885

== ENCOUNTER 2023-05-12 09:59 | Outpatient (AMB) | payer OTHER, SELFPAY ==
--- NOTE | 2023-05-12 10:08 | MHC.PC.OV ---
Vital Signs 05/12/23 10:18 Height 5 ft 10 in Weight 246 lb BMI 35.3 BP 154/80 H Blood Pressure Location Rt brachial Position Sitting Respiration 13 Pulse 95 Pulse Source Pulse Oximeter Temp 98.1 F Temp Source Temporal Artery Scan Pulse Oximetry (%) 97 Oxygen Delivery Method Room Air Intake Visit Reasons: [facility] 04/29 Schizophrenia Intake Note: Patient is here for a hospital discharge follow up from [facility]. Patient was discharged on 04/29/23, the discharge summary is scanned into the chart. Patient had an A1C completed on 04/28/23 with a result of 11.9. Patient is here with his sister in law, Vianey, sister in law explains patient was brought into [facility] by police because he could not understand them and the situation became out of control. Vianey asks if we can order a medical bracelet for the future to specify his diagnosis, language and contact worker lithography. Greenhouse Assistant Required: Yes Greenhouse Assistant Name: Sister in LawVianey Accompanied by: Self / Same As Patient Allergies No Known Allergies Allergy (Verified 05/12/23 10:09) Medication List - Last Reconciled 05/12/23 by Mely Michaud, MAGNUS-BC acetaminophen (Tylenol Extra Strength) 500 mg PO Q6H PRN amlodipine 5 mg PO DAILY aspirin 81 mg PO DAILY 30 days blood sugar diagnostic (FreeStyle Lite Strips) As directed TID blood-glucose meter (FreeStyle Lite Meter kit) As directed cane As directed clonidine HCl 0.1 mg PO BID clopidogrel 75 mg PO DAILY 30 days insulin NPH and regular human 100 unit/mL (70-30) 1 sliding scale dose subcut USEASDIRECTD 30 days lancets (FreeStyle Lancets) Blood glucose check morning and evening lisinopril 20 mg (2 x 10 mg) PO DAILY metformin 1,000 mg PO BID 30 days risperidone (Risperdal) 2 mg PO BID 90 days Tobacco use date assessed: 11/11/22 Dental Screening Dental Screen Date: 05/12/23 Did you have a dental visit in the last 12 months?: No Did you have a dental problem in the last 6 months where you did not have access to dental care?: No Was dental information given to patient?: Patient has dentist HPI HPI Comments History of Present Illness Details 53-year-old male presents today for hospital discharge follow up. He was admitted to [facility] [place] April 28 through 04/29/2023. Patient with learning disability, PTSD, schizophrenia, insulin-dependent diabetes, PVD, CKD, right 5th toe amputation, hypertension admitted to the hospital after being found agitated. Workup found patient to be hyperglycemic, hyponatremic, anemia, hypocalcemia, OBEY, hyperkalemic. He was treated with insulin in his condition improved. Patient's caregiver is his [id number] Hemoglobin a1c 11.9 Creatinine peaked at 2.3, down to 1.6 on day of discharge. GFR 50 Potassium peaked at 7.0. Treated with calcium gluconate, Lokelma, IV fluid x3 L. EKG normal sinus rhythm with some T-wave changes but no hyperkalemic changes. Resolved upon date of discharge with a normal potassium level. Leukocytosis also resolved. Thought to be stress reaction. Hypo osmolality and hyponatremia resolved upon discharge 4.3 Discharge medications include Amlodipine 5 mg 1 tablet by mouth daily Plavix 75 mg 1 tablet by mouth daily Insulin Humulin 70/30 45 units in the morning and 50 units in the evening Risperidone 2 mg by mouth 1 tablet twice a day Here today with his ixiwct-dy-int Annette. She reports that he needs his insulin as he has no more. Unclear as to why. Reports a 90 day supply was recently picked up but he has no more. In regards to his medication she states that he needs something to help him sleep as he has not sleeping at night. When asked if he was taking his risperidone twice a day as directed she said he was only taking it once per day but she really was not sure why. She took pictures of the medications that he is currently on and has in the home and they only include the for medications above. They do not include any of the medications listed on his chart today which include clonidine lisinopril metformin. Would like a referral to endocrinology. 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 Reports he has not active with Psychiatry but really unsure why. Interested in a referral which was placed today. [facility] Medical History Poorly controlled diabetes mellitus Sepsis Osteomyelitis Hyperglycemia Hyponatremia Infected sebaceous cyst OBEY (acute kidney injury) Acute on chronic osteomyelitis Right foot ulcer Cellulitis of right lower extremity Broken toe PAD (peripheral artery disease) Schizoaffective disorder HCV (hepatitis C virus) Hypertension Diabetes Osteomyelitis Family History (Updated 05/12/23 @ 10:23 by Francia James CMA) Father Diabetes mellitus Social History Household Members: Family Household Members Other:: Friend Housing: House Do you presently have visiting nurse or other home services: No Alcohol intake: former Comment: previously medicated with fentanyl and oxycodone Patient Tobacco Use Status: Former Tobacco user Quit Date: 08/07/21 e-Cigarette/Vaping Use: Never Used Substance Use Type: Marijuana service: No Current occupational status: unemployed and disabled Cognitive needs: Yes Hearing needs: No Vision needs: No Questionnaire Thrive Questionnaire Date Thrive assessed: 04/30/22 INESSA-7 AMB Questionnaire INESSA-7 Date INESSA - 7 assessed: 04/30/22 Source: Developed by Drs. Jonathan Smalls, Chary Hall, Escobar Gutierrez and colleagues, with an educational weston from [employer]. Review of Systems Const All systems reviewed & are unremarkable except as noted in HPI and below Physical exam (Primary Care) Vital Signs: Last Vital Signs Temp 98.1 F 05/12/23 10:18 Pulse 95 05/12/23 10:18 Resp 13 05/12/23 10:18 BP 154/80 H 05/12/23 10:18 Pulse Ox 97 05/12/23 10:18 Oxygen Delivery Method Room Air 05/12/23 10:18 BMI result Body Mass Index 35.3 Tobacco/Smoking Status: Tobacco use Status Tobacco use date assessed 11/11/22 05/12/23 10:11 Patient Tobacco Use Status Former Tobacco user 05/12/23 10:11 e-Cigarette/Vaping Use Never Used 05/12/23 10:11 Thrive Assessment: Date of Thrive Assessment Date Thrive assessed 04/30/22 05/12/23 10:11 Const Other: Awake alert, sitting in chair with eyes closed rocking most of the visit, responds in Pal[place] to his [id number] Annette who was also present Regular rate and rhythm Lung sounds clear to auscultation bilat Scabs bilat wrists without signs of infection Results AMB Hemoglobin A1c AMB Hemoglobin A1c 14 % Last Edit by Francia James CMA on 05/12/23 10:41 Results Reviewed Results Reviewed: Laboratory Last Values Hgb A1c (Clinic) 14 % (4.0-6.0) H 05/12/23 10:39 Assessment and Plan Assessment & Plan (1) Hospital discharge follow-up: Code(s): Z09 - Encounter for follow-up examination after completed treatment for conditions other than malignant neoplasm Plan: Complex discharge. Unsure why he has not able to get his insulin. I have placed a referral to the nurse navigation team to help. Also unsure which medications he is currently taking and what he should really be taking. Nurse navigation to get me a med claim history. He does have risperidone 2 mg in the house with the directions on the bottle stating take 1 tablet twice per day education provided to the [id number] to give this to him twice per day as this will help his schizophrenia as well as the disrupted sleep. His diabetes is uncontrolled. Referral placed endocrinology today. Of note he has been referred to Endocrinology in the past and has no showed this appointment. Although he is not homebound he would benefit from medication management. Nurse navigator to look into resources for him. The sister in-law would like to know if he can get a medical alert MemberConnectioncelet stating that he is schizophrenic and has diabetes. I have advised her to get this online. Given the complexity of his case, high-risk for readmission, and need for follow-up I did ask for him and Annette to come back to the office to see the primary care provider in 1 week. Per Nurse Navigator: I called [facility] and think we have a good timeline of activity. Aspirin 81 mg---awaiting p/u Humulin 70/30 45ux am and 50ux pm---awaiting p/u *Lisinopril 10 mg daily--last filled, 30 day supply, 03/08/23 Plavix 75mg daily---last filled 12/09/22 90 day supply *Risperdol 2 mg BID---returned to stock when not picked up in Dec Amlodipine 10mg daily---last p/u 09/2022 *Meformin---last p/u 11/11/22 90 day supply Clonidine 0.1mg BID--last p/u 11/2021 Tramadol last p/u over a year ago Endocrinolgy N/S x 2, 08/01/22 and 10/24/22 I spoke with Vianey. She will p/u insulin and ASA today. She will wait for additional meds ready at [facility]. When you order, and she has everything, I will bring a 2x a day pill box and set Raffi up. *i have sent these medications to the pharmacy. as he has been off of the other meds for some time, will defer to PCP.* (2) Diabetes mellitus with multiple complications: Code(s): E11.8 - Type 2 diabetes mellitus with unspecified complications (3) Schizophrenia: Code(s): F20.9 - Schizophrenia, unspecified Qualifiers: Schizophrenia type: paranoid schizophrenia Qualified Code(s): F20.0 - Paranoid schizophrenia Plan Total time spent caring for the patient today was 60 minutes. This includes time spent before the visit reviewing the chart, time spent during the visit, and time spent after the visit on documentation This note is constructed using voice recognition software. While every effort has been made to ensure accuracy in data reduction technician, still errors may have been included Sometimes, these errors may affect the content or meaning of the given sentence . Orders: Orders AMB Hemoglobin A1c Today E11.9 - Type 2 diabetes mellitus without complications Referrals Endocrinology Referral E11.8 - Type 2 diabetes mellitus with unspecified complications, Z09 - Encounter for follow-up examination after completed treatment for conditions other than malignant neoplasm Nurse Navigator Referral E11.8 - Type 2 diabetes mellitus with unspecified complications, Z09 - Encounter for follow-up examination after completed treatment for conditions other than malignant neoplasm Psychiatry Referral F20.9 - Schizophrenia, unspecified Medications: Changed From amlodipine 10 mg PO DAILY 30 days 30 tabs 8RF To amlodipine 5 mg PO DAILY From risperidone (Risperdal) 2 mg PO BID 90 days 180 tabs 1RF To risperidone (Risperdal) 2 mg PO BID 60 tabs 0RF 30 days Refilled lisinopril 20 mg (2 x 10 mg) PO DAILY 60 tabs 0RF metformin 1,000 mg PO BID 60 tabs 0RF 30 days Patient Instructions: Get Medical Alert bracelet Check [employer] website Coding Level of Care Code TCM High MDM <= 14 days Diagnoses Hospital discharge follow-up Z09 Diabetes mellitus with multiple complications E11.8 Paranoid schizophrenia F20.0 Schizophrenia type: paranoid schizophrenia
[2023-05-12 10:18] VITALS: BP 154/80; PULSE 95; RESP 13; TEMP 36.7; O2SAT 97; BMI 35.3
== END 2023-05-12 11:03 | disposition home or self-care (01) ==
PROVIDERS: Visit Provider Nurse Practitioner Family
DX: E11.8 Type 2 diabetes mellitus with unspecified complications (principal); F20.0 Paranoid schizophrenia; Z09 Encounter for follow-up examination after completed treatment for conditions other than malignant neoplasm; I10 Essential (primary) hypertension
CPT/HCPCS: 83036; 99214

== ENCOUNTER 2023-05-19 15:16 | Outpatient (AMB) | payer OTHER, SELFPAY ==
[2023-05-19 15:17] VITALS: BP 144/70; PULSE 100; RESP 13; TEMP 36.5; O2SAT 98; BMI 35.5
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
[2023-05-19 16:10] VITALS: BP 160/80
== END 2023-05-19 16:24 | disposition home or self-care (01) ==
PROVIDERS: Visit Provider Nurse Practitioner Family
DX: I10 Essential (primary) hypertension (principal); E11.8 Type 2 diabetes mellitus with unspecified complications; F20.0 Paranoid schizophrenia; N17.9 Acute kidney failure, unspecified; G47.9 Sleep disorder, unspecified; F43.10 Post-traumatic stress disorder, unspecified; D64.9 Anemia, unspecified; E83.51 Hypocalcemia
CPT/HCPCS: 96127; 99214

== ENCOUNTER 2023-06-06 14:28 | Outpatient (AMB) | payer OTHER, SELFPAY ==
[2023-06-06 14:29] VITALS: BP 130/72; PULSE 99; O2SAT 97; BMI 34.9
--- NOTE | 2023-06-06 14:29 | HO.NEPHOV_ITS ---
HPI HPI Comments History of Present Illness Details I had the privilege of seeing Raffi who is a 53-year-old Mongolian- speaking male, accompained by his kerllb-nq-lov/caregiver in consultation for CKD. He is a diabetic. His last A1c was 14.0%. He has not been taking any metformin until recently. He has been on insulin. He has vascular disease. He is on Plavix. 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 He is hypertensive. He is on multiple antihypertensive medications. He is on LISBET-inhibitor which is tolerating well. Interpretation by the patient's caregiver per patient's preference . He denies having coronary artery disease, carotid stenosis, congestive heart failure, CVA or history of renal artery stenosis. He does not have any chest pain, shortness of breath, orthostatic symptoms, pedal edema, hematuria, dysuria, nephrolithiasis, photosensitivity, epistaxis, skin rashes. He is known to have proteinuria and his last serum creatinine was 1.38. [facility] History (Updated 06/10/23 @ 13:27 by Alexis Dang MD) OBEY (acute kidney injury) Poorly controlled diabetes mellitus Sepsis Osteomyelitis Hyperglycemia Hyponatremia Infected sebaceous cyst Acute on chronic osteomyelitis Right foot ulcer Cellulitis of right lower extremity Broken toe PAD (peripheral artery disease) Schizoaffective disorder HCV (hepatitis C virus) Hypertension Diabetes Osteomyelitis Surgical History No pertinent past surgical history Family History Father Diabetes mellitus Social History Household Members: Family Household Members Other:: Friend Housing: House Do you presently have visiting nurse or other home services: No Alcohol intake: former Comment: previously medicated with fentanyl and oxycodone Patient Tobacco Use Status: Former Tobacco user Quit Date: 08/07/21 e-Cigarette/Vaping Use: Never Used Substance Use Type: Marijuana service: No Current occupational status: unemployed and disabled Cognitive needs: Yes Hearing needs: No Vision needs: No Vital Signs 06/06/23 14:29 Height 5 ft 10 in Weight 243 lb 6 oz BMI 34.9 BP 130/72 Blood Pressure Location Lt brachial Position Sitting Pulse 99 Pulse Source Pulse Oximeter Pulse Oximetry (%) 97 Oxygen Delivery Method Room Air Physical Exam Vital Signs: Last Vital Signs Pulse 99 06/06/23 14:29 BP 130/72 06/06/23 14:29 Pulse Ox 97 06/06/23 14:29 Oxygen Delivery Method Room Air 06/06/23 14:29 BMI result Body Mass Index 34.9 Const General: comfortable and no acute distress Orientation/consciousness: patient oriented x3 HEENT Head: Yes normocephalic Mouth: Normal oral and palatal mucosa present Eyes EOM: EOMs intact bilaterally Neck Neck: Yes supple Resp Auscultation: clear to auscultation bilaterally Cardio Jugular venous distension: no JVD Rate: regular rate GI Palpation (GI): Soft to palpation Auscultation: normal bowel sounds General: Yes no CVA tenderness Back/Spine/Pelvis Back: no CVA tenderness Skin General skin exam: no rashes or lesions noted Neuro General: patient oriented x3 and moves all extremities Extrem Other: He had undergone amputation of 1 of the toes on the right foot General: Yes no pedal edema Assessment & Plan Assessment & Plan (1) Hypertension: Code(s): I10 - Essential (primary) hypertension Qualifiers: Hypertension type: renovascular hypertension Qualified Code(s): I15.0 - Renovascular hypertension (2) CKD (chronic kidney disease) stage 3, GFR 30-59 ml/min: Code(s): N18.30 - Chronic kidney disease, stage 3 unspecified Qualifiers: Chronic kidney disease stage 3 subtype: stage 3a (GFR 45-59) Qualified Code(s): N18.31 - Chronic kidney disease, stage 3a Alejandro Nugent has 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 His last hemoglobin A1c was 14. He will benefit from Jardiance/Farxiga. He is on LISBET-inhibitor. I have ordered a Doppler of renal arteries and ultrasound of the kidney given history of peripheral arterial disease. If his renal functions permit, with time, I shall increase his LISBET inhibitor and wean him off amlodipine. He needs to maintain good hydration and avoid nonsteroidal anti-inflammatories. I did not make any changes but rather ordered workup. He should avoid nonsteroidal anti-inflammatories and maintain good hydration. He is on Plavix and statins. There is no indication for any renal biopsy now. Further management is pending evolving data. Answered all questions. Follow-up appointment given. Orders: Orders Anti DNA DS Antibody 06/06/23 I10 - Essential (primary) hypertension, N18.30 - Chronic kidney disease, stage 3 unspecified Proteinase 3 PR3 Antibodies 06/06/23 I10 - Essential (primary) hypertension, N18.30 - Chronic kidney disease, stage 3 unspecified Anti Glomerular Basement Memb 06/06/23 I10 - Essential (primary) hypertension, N18.30 - Chronic kidney disease, stage 3 unspecified Complement C3 06/06/23 I10 - Essential (primary) hypertension, N18.30 - Chronic kidney disease, stage 3 unspecified Complement C4 06/06/23 I10 - Essential (primary) hypertension, N18.30 - Chronic kidney disease, stage 3 unspecified Blood Urea Nitrogen 06/06/23 I10 - Essential (primary) hypertension, N18.30 - Chronic kidney disease, stage 3 unspecified Creatinine 06/06/23 I10 - Essential (primary) hypertension, N18.30 - Chronic kidney disease, stage 3 unspecified Protein Creatinine Ratio, Ur 06/06/23 I10 - Essential (primary) hypertension, N18.30 - Chronic kidney disease, stage 3 unspecified Cryoglobulin 06/06/23 I10 - Essential (primary) hypertension, N18.30 - Chronic kidney disease, stage 3 unspecified Complete Blood Count Auto Diff 06/06/23 I10 - Essential (primary) hypertension, N18.30 - Chronic kidney disease, stage 3 unspecified US renal BI 06/06/23 I10 - Essential (primary) hypertension, N18.30 - Chronic kidney disease, stage 3 unspecified US renal doppler 06/06/23 I10 - Essential (primary) hypertension, N18.30 - Chronic kidney disease, stage 3 unspecified US renal doppler Today N18.30 - Chronic kidney disease, stage 3 unspecified Myeloperoxidase Antibody 06/06/23 I10 - Essential (primary) hypertension, N18.30 - Chronic kidney disease, stage 3 unspecified Immunofixation Pnl, Serum 06/06/23 I10 - Essential (primary) hypertension, N18.30 - Chronic kidney disease, stage 3 unspecified Phospholipase A2 Receptor Pnl 06/06/23 I10 - Essential (primary) hypertension, N18.30 - Chronic kidney disease, stage 3 unspecified Hepatitis B Surface Antigen 06/06/23 I10 - Essential (primary) hypertension, N18.30 - Chronic kidney disease, stage 3 unspecified Hepatitis B Core Antibody 06/06/23 I10 - Essential (primary) hypertension, N18.30 - Chronic kidney disease, stage 3 unspecified Electrolytes 06/06/23 I10 - Essential (primary) hypertension, N18.30 - Chronic k idney disease, stage 3 unspecified Calcium 06/06/23 I10 - Essential (primary) hypertension, N18.30 - Chronic kidney disease, stage 3 unspecified Vitamin D 25-OH Total 06/06/23 I10 - Essential (primary) hypertension, N18.30 - Chronic kidney disease, stage 3 unspecified US renal BI Today N18.30 - Chronic kidney disease, stage 3 unspecified Coding Level of Care Code New Pt Level 4 (88954) Diagnoses Renovascular hypertension I15.0 Hypertension type: renovascular hypertension Stage 3a chronic kidney disease N18.31 Chronic kidney disease stage 3 subtype: stage 3a (GFR 45-59) Results Reviewed Nephrology Results: No Data to Display
== END 2023-06-06 15:03 | disposition home or self-care (01) ==
PROVIDERS: Visit Provider Internal Medicine Nephrology
DX: I15.0 Renovascular hypertension (principal); N18.31 Chronic kidney disease, stage 3a
CPT/HCPCS: 99204

== ENCOUNTER → 2023-06-06 14:28 | Outpatient (BNVA) | payer OTHER, SELFPAY | PROVIDERS: Visit Provider Internal Medicine Nephrology | DX: I15.0 Renovascular hypertension (principal); E11.65 Type 2 diabetes mellitus with hyperglycemia; N18.31 Chronic kidney disease, stage 3a | CPT/HCPCS: 99202 ==

== ENCOUNTER 2023-06-12 13:01 | Outpatient (REF) | payer OTHER, SELFPAY ==
--- NOTE | ~2023-06-12 | US_ITS ---
EXAMINATION: US RETROPERITONEAL LIMITED (RENAL ONLY) CLINICAL INFORMATION: Chronic kidney disease, stage III.. COMPARISON: None available. TECHNIQUE: Routine grayscale, color and Doppler imaging of kidneys was performed. FINDINGS: RIGHT KIDNEY: 9.0 x 5.6 x 5.8 cm (SAG x AP x TRV). The kidney is normal in size, contour, and echogenicity. Renal cortical thickness is normal. No calculi or focal parenchymal lesions. No hydronephrosis. There is anechoic cyst in lower pole measuring 0.55 x 0.50 x 0.54 cm. LEFT KIDNEY: 11.3 x 6.1 x 6.2 cm (SAG x AP x TRV). The kidney is normal in size, contour, and echogenicity. Renal cortical thickness is normal. No calculi or focal parenchymal lesions. No hydronephrosis. US/US renal BI IMPRESSION: 1. Small anechoic cyst lower pole right kidney. 2. There are no echogenic stones or hydronephrosis in either kidney.
--- NOTE | ~2023-06-12 | US_ITS ---
EXAMINATION: US RETROPERITONEAL LIMITED (RENAL ONLY) CLINICAL INFORMATION: Chronic kidney disease, stage III.. COMPARISON: None available. TECHNIQUE: Routine grayscale, color and Doppler imaging of kidneys was performed. FINDINGS: RIGHT KIDNEY: 9.0 x 5.6 x 5.8 cm (SAG x AP x TRV). The kidney is normal in size, contour, and echogenicity. Renal cortical thickness is normal. No calculi or focal parenchymal lesions. No hydronephrosis. There is anechoic cyst in lower pole measuring 0.55 x 0.50 x 0.54 cm. LEFT KIDNEY: 11.3 x 6.1 x 6.2 cm (SAG x AP x TRV). The kidney is normal in size, contour, and echogenicity. Renal cortical thickness is normal. No calculi or focal parenchymal lesions. No hydronephrosis. US/US renal doppler IMPRESSION: 1. Small anechoic cyst lower pole right kidney. 2. There are no echogenic stones or hydronephrosis in either kidney.
== END 2023-06-12 13:02 | disposition home or self-care (01) ==
LOC: HO.HMGCX 13:01
PROVIDERS: PCP Nurse Practitioner Family; Visit Provider Internal Medicine Nephrology
DX: I12.9 Hypertensive chronic kidney disease with stage 1 through stage 4 chronic kidney disease, or unspecified chronic kidney disease (principal); N18.30 Chronic kidney disease, stage 3 unspecified
CPT/HCPCS: 76775; 93975

== ENCOUNTER 2023-07-18 14:58 | Outpatient (AMB) | payer OTHER, SELFPAY ==
--- NOTE | 2023-07-18 14:59 | HO.NEPHOV ---
Vital Signs 07/18/23 15:00 Height 5 ft 10 in Weight 242 lb 4 oz BMI 34.8 BP 130/70 Blood Pressure Location Rt brachial Position Sitting Pulse 96 Pulse Source Pulse Oximeter Pulse Oximetry (%) 97 Oxygen Delivery Method Room Air Intake Visit Reasons: CKD/ 1 MO FU/ LM Multi Spindle Operator Required: Yes Multi Spindle Operator Name: Bailey Bellamy Accompanied by: Other Relationship Allergies No Known Allergies Allergy (Verified 07/18/23 15:03) HPI Comments Details: I had the privilege of seeing Raffi who is a 53-year-old South Korean-speaking male, accompained by his [id number]/caregiver in follow up for CKD. He is a diabetic. His last A1c was 14.0%. He has not been taking any metformin until recently. He has been on insulin. He has vascular disease. He is on Plavix. 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 He is hypertensive. He is on multiple antihypertensive medications. He is on LISBET-inhibitor which is tolerating well. Interpretation by the patient's caregiver per patient's preference . He denies having coronary artery disease, carotid stenosis, congestive heart failure, CVA or history of renal artery stenosis. He does not have any chest pain, shortness of breath, orthostatic symptoms, pedal edema, hematuria, dysuria, nephrolithiasis, photosensitivity, epistaxis, skin rashes. He is known to have proteinuria and his last serum creatinine was 1.38 [facility] Medical History (Updated 07/18/23 @ 19:45 by Alexis Dang MD) OBEY (acute kidney injury) Poorly controlled diabetes mellitus Sepsis Osteomyelitis Hyperglycemia Hyponatremia Infected sebaceous cyst Acute on chronic osteomyelitis Right foot ulcer Cellulitis of right lower extremity Broken toe PAD (peripheral artery disease) Schizoaffective disorder HCV (hepatitis C virus) Hypertension Diabetes Osteomyelitis Surgical History No pertinent past surgical history Family History Father Diabetes mellitus Social History Household Members: Family Household Members Other:: Friend Housing: House Do you presently have visiting nurse or other home services: No Alcohol intake: former Comment: previously medicated with fentanyl and oxycodone Patient Tobacco Use Status: Former Tobacco user Quit Date: 08/07/21 e-Cigarette/Vaping Use: Never Used Substance Use Type: Marijuana service: No Current occupational status: unemployed and disabled Cognitive needs: Yes Hearing needs: No Vision needs: No Physical Exam Vital Signs: Last Vital Signs Pulse 96 07/18/23 15:00 BP 130/70 07/18/23 15:00 Pulse Ox 97 07/18/23 15:00 Oxygen Delivery Method Room Air 07/18/23 15:00 BMI result Body Mass Index 34.8 Const General: comfortable and no acute distress Orientation/consciousness: patient oriented x3 HEENT Head: Yes normocephalic Mouth: Normal oral and palatal mucosa present Eyes EOM: EOMs intact bilaterally Neck Neck: Yes supple Resp Auscultation: clear to auscultation bilaterally Cardio Jugular venous distension: no JVD Rate: regular rate GI Palpation (GI): Soft to palpation Auscultation: normal bowel sounds General: Yes no CVA tenderness Back/Spine/Pelvis Back: no CVA tenderness Skin General skin exam: no rashes or lesions noted Neuro General: patient oriented x3 and moves all extremities Extrem General: Yes no pedal edema Results Reviewed Nephrology Results: Hgb 14.7 g/dl (14.0-18.0) 07/18/23 WBC 11.1 X10*3/uL (4.8-10.8) H 07/18/23 Plt Count 293 X10*3/uL (160-400) 07/18/23 Sodium 134 mmol/L (135-145) L 07/18/23 Potassium 4.0 mmol/L (3.3-5.1) 07/18/23 Chloride 99 mmol/L (96-108) 07/18/23 Carbon Dioxide 22 mmol/L (22-29) 07/18/23 BUN 25 mg/dL (9-16) H 07/18/23 Creatinine 1.54 mg/dL (0.5-1.4) H 07/18/23 Calcium 10.2 mg/dL (8.4-10.2) 07/18/23 Urine Creatinine 122.07 mg/dL 07/18/23 Protein/Creatinin Ratio Pending 07/18/23 Renal US 06/12/23 Assessment & Plan Assessment & Plan (1) CKD (chronic kidney disease) stage 3, GFR 30-59 ml/min: Code(s): N18.30 - Chronic kidney disease, stage 3 unspecified Category: Medical Qualifiers: Chronic kidney disease stage 3 subtype: stage 3a (GFR 45-59) Qualified Code(s): N18.31 - Chronic kidney disease, stage 3a (2) Hypertension: Code(s): I10 - Essential (primary) hypertension Category: Medical Qualifiers: Hypertension type: renovascular hypertension Qualified Code(s): I15.0 - Renovascular hypertension (3) Diabetic nephropathy: Code(s): E11.21 - Type 2 diabetes mellitus with diabetic nephropathy Category: Medical Qualifiers: Diabetes mellitus type: type 2 Qualified Code(s): E11.21 - Type 2 diabetes mellitus with diabetic nephropathy Plan Raffi has 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 His last hemoglobin A1c was 14. I started him on Jardiance 10 mg daily. He is on LISBET-inhibitor. I had ordered a Doppler of renal arteries and ultrasound of the kidney given history of peripheral arterial disease which showed bilateral elevated renal artery velocities. These could be due to elevated aortic velocity. However bilateral renal artery atherosclerosis and narrowing cannot be excluded. Further evaluation with MRA was recommended.Small anechoic cyst lower pole right kidney was also found. If his renal functions permit, with time, I shall increase his LISBET inhibitor and wean him off amlodipine. He needs to maintain good hydration and avoid nonsteroidal anti-inflammatories. I did not make any other changes today. He should avoid nonsteroidal anti-inflammatories and maintain good hydration. He is on Plavix and statins. There is no indication for any renal biopsy now. Further management is pending evolving data. Answered all questions. Follow-up appointment given. Orders: Orders Creatinine 3 Weeks N18.31 - Chronic kidney disease, stage 3a Blood Urea Nitrogen Today N18.31 - Chronic kidney disease, stage 3a Medications: New empagliflozin (Jardiance) 10 mg PO DAILY 30 tabs 3RF Coding Level of Care Code Est Pt Level 4 (24119) Diagnoses Stage 3a chronic kidney disease N18.31 Chronic kidney disease stage 3 subtype: stage 3a (GFR 45-59) Renovascular hypertension I15.0 Hypertension type: renovascular hypertension Diabetic nephropathy associated with type 2 diabetes mellitus E11.21 Diabetes mellitus type: type 2
[2023-07-18 15:00] VITALS: BP 130/70; PULSE 96; O2SAT 97; BMI 34.8
== END 2023-07-18 15:31 | disposition home or self-care (01) ==
LOC: HO.HKA 14:58
PROVIDERS: PCP Nurse Practitioner Family; Visit Provider Internal Medicine Nephrology
DX: N18.31 Chronic kidney disease, stage 3a (principal); I15.0 Renovascular hypertension; E11.21 Type 2 diabetes mellitus with diabetic nephropathy
CPT/HCPCS: 99214

== ENCOUNTER 2023-07-18 14:58 | Outpatient (REF) | payer OTHER, SELFPAY ==
[2023-07-18 16:03] LABS: MANUAL DIFF FLAG NO
[2023-07-18 18:35] LABS: Basophils Absolute Auto 0.1 X10*3/uL (0.0-0.2); Basophils Percent Auto 0.6 % (0-2); Eosinophils Absolute Auto 0.2 X10*3/uL (0.0-0.4); Eosinophils Percent Auto 2.1 % (0-4); Hematocrit 44.4 % (42.0-52.0); Hemoglobin 14.7 g/dl (14.0-18.0); Imm Gran Abs Auto 0.06 X10*3/uL (0.00-0.03); Imm Gran Pct Auto 0.5 % (0.0-0.4); Lymphocytes Absolute Auto 2.5 X10*3/uL (1.2-4.9); Lymphocytes Percent Auto 22.5 % (20-40); Mean Corpuscular HGB Conc 33.1 g/dl (31.0-36.0); Mean Corpuscular Hemoglobin 25.8 pg (27.0-33.0); Mean Corpuscular Volume 77.9 fL (80.0-98.0); Mean Platelet Volume 11.8 fL (9.4-12.4); Monocytes Absolute Auto 0.7 X10*3/uL (0.1-1.2); Monocytes Percent Auto 6.1 % (2-11); Neutrophils Absolute Auto 7.6 x10*3/uL (2.0-8.3); Neutrophils Percent Auto 68.2 % (45-73); Platelet Count 293 X10*3/uL (160-400); Red Cell Distribution Width 13.6 % (11.0-16.0); White Blood Count 11.1 X10*3/uL (4.8-10.8)
[2023-07-18 19:06] LABS: Creatinine Urine 122.07 mg/dL
[2023-07-18 19:11] LABS: Anion Gap 17 (12-20); Blood Urea Nitrogen 25 mg/dL (9-16); Calcium 10.2 mg/dL (8.4-10.2); Carbon Dioxide 22 mmol/L (22-29); Chloride 99 mmol/L (96-108); Estimated Glomerular Filt Rate 48; Sodium 134 mmol/L (135-145)
[2023-07-19 01:16] LABS: Protein/Creatinine Ratio, Ur 2.72 (<0.2); Total Protein Urine Random 332 mg/dL (<12)
[2023-07-19 03:34] LABS: HBsAGNum1 0.26 S/CO (0.00-0.99); Hepatitis B Core Antibody Nonreactive (Nonreactive); Hepatitis B Surface Antigen Negative (Negative)
[2023-07-22 06:43] LABS: Complement C3 170 mg/dL (82-185)
[2023-07-22 20:57] LABS: IgA 221 mg/dL (47-310); IgG 2217 mg/dL (600-1640); IgM 64 mg/dL (50-300)
[2023-07-24 12:43] LABS: Anti DNA DS Antibody 3 IU/mL; Anti Glomerular Basement Memb <1.0 AI; Myeloperoxidase Antibody <1.0 AI; Proteinase 3 PR3 Antibodies <1.0 AI
[2023-07-25 09:48] LABS: Cryoglobulin, Qual Negative (Negative)
[2023-07-27 01:43] LABS: Phospholipase A2 IgG ELISA <4 RU/mL; Phospholipase A2 IgG IFA NEGATIVE (NEGATIVE)
== END 2023-07-18 14:59 | disposition home or self-care (01) ==
LOC: HO.LAB 14:58
PROVIDERS: PCP Nurse Practitioner Family; Visit Provider Internal Medicine Nephrology
DX: E11.22 Type 2 diabetes mellitus with diabetic chronic kidney disease (principal); E11.21 Type 2 diabetes mellitus with diabetic nephropathy; I15.0 Renovascular hypertension; N18.31 Chronic kidney disease, stage 3a
CPT/HCPCS: 36415; 80051; 82306; 82310; 82565; 82570; 82595; 82784; 83520; 84156; 84520; 85025; 86021; 86160; 86225; 86255; 86334; 86704; 87340; 99212

== ENCOUNTER 2023-07-28 13:04 | Emergency (ER) | payer OTHER, SELFPAY ==
--- NOTE | ~2023-07-28 | XR_ITS ---
EXAMINATION: XR KNEE, RIGHT CLINICAL INFORMATION: Swelling. Pain COMPARISON: None available. TECHNIQUE: Four views of the right knee. FINDINGS: There are marginal osteophytes about all compartments without joint space narrowing indicative of mild tricompartmental osteoarthritis. 5 mm ossification overlying the intercondylar notch likely reflects loose body. There are ossifications overlying the distal patella tendon compatible with old Ashburn-Schlatter's disease. Arterial calcification noted. XR/XR knee RT 3V IMPRESSION: 1. Mild tricompartmental osteoarthritis. Probable loose body. 2. Calcific atherosclerotic disease.
[2023-07-28 13:31] VITALS: BP 184/100; PULSE 96; RESP 18; TEMP 37.2; O2SAT 98; BMI 34.6
--- NOTE | 2023-07-28 13:32 | ED.EXTPRO ---
HPI - Extremity Problem General Chief complaint: Extremity Problem Stated complaint: R knee pain Related Data Home Medications ?Medication ?Instructions ?Recorded ?Confirmed amlodipine 10 mg tablet 5 mg PO DAILY 05/12/23 05/19/23 Previous Rx's ?Medication ?Instructions ?Recorded cane #1 ea 10/10/21 blood sugar diagnostic (FreeStyle #100 ea 04/30/22 Lite Strips) blood-glucose meter (FreeStyle #1 ea 04/30/22 Lite Meter kit) clopidogrel 75 mg tablet 75 mg PO DAILY 30 days #90 tabs 12/09/22 acetaminophen 500 mg tablet 500 mg PO Q6H PRN fever or pain 03/13/23 (Tylenol Extra Strength) #14 tabs insulin human U-100 NPH-regulr 1 sliding scale dose subcut 04/29/23 70-30 mix 100 unit/mL subcutaneous USEASDIRECTD 30 days #30 mL susp risperidone 2 mg tablet (Risperdal) 2 mg PO BID 30 days #60 tabs 05/12/23 lisinopril 10 mg tablet 10 mg PO DAILY 30 days #30 tabs 05/19/23 lancets 28 gauge (FreeStyle #100 ea 06/06/23 Lancets) empagliflozin 10 mg tablet 10 mg PO DAILY #30 tabs 07/18/23 (Jardiance) metformin 1,000 mg tablet 1,000 mg PO BID 30 days #60 tabs 07/22/23 trazodone 50 mg tablet 50 mg PO BEDTIME 90 days #90 tabs 07/24/23 Allergies Allergy/AdvReac Type Severity Reaction Status Date / Time No Known Allergies Allergy Verified 07/28/23 13:33 [facility] Past Medical History Medical History (Updated 07/18/23 @ 19:45 by Alexis Dang MD) OBEY (acute kidney injury) Poorly controlled diabetes mellitus Sepsis Osteomyelitis Hyperglycemia Hyponatremia Infected sebaceous cyst Acute on chronic osteomyelitis Right foot ulcer Cellulitis of right lower extremity Broken toe PAD (peripheral artery disease) Schizoaffective disorder HCV (hepatitis C virus) Hypertension Diabetes Osteomyelitis Surgical History No pertinent past surgical history Family History Family History Father Diabetes mellitus Social History Social History Household Members: Family Household Members Other:: Friend Housing: House Do you presently have visiting nurse or other home services: No Alcohol intake: former Comment: previously medicated with fentanyl and oxycodone Patient Tobacco Use Status: Former Tobacco user Quit Date: 08/07/21 e-Cigarette/Vaping Use: Never Used Substance Use Type: Marijuana service: No Current occupational status: unemployed and disabled Cognitive needs: Yes Hearing needs: No Vision needs: No Physical Exam Vital Signs: Vital Signs: Last Vital Signs Temp 99 F 07/28/23 13:31 Pulse 96 07/28/23 13:31 Resp 18 07/28/23 13:31 BP 184/100 H 07/28/23 13:31 Pulse Ox 98 07/28/23 13:31 O2 Del Method Room Air 07/28/23 13:31 BMI result Body Mass Index 34.6 Course Course Course Narrative: This is a Rapid Medical Examination (RME) performed by Soledad Powell PA-C in triage. Full HPI, ROS, assessment and treatment plan per primary provider in the Main ED. 53 yo Lithuanian speaking male with history of DM2 w/ neuropathy, CKD, schizophrenia, bipolar, PAD, HTN who presents to the ER for evaluation of 2 days of atraumatic right knee pain. Limping into triage. Right knee with mild swelling, suprapatellar tenderness, no erythema or warmth. warm and well perfused distally. Plan: XR right knee Discharge Plan Discharge Prescriptions: No Action clopidogrel 75 mg tablet 75 mg PO DAILY 30 Days Qty: 90 0RF Rx Instructions: stent placed 09/05/21 will need for one year or longer insulin NPH and regular human 100 unit/mL (70-30) suspension 1 sliding scale dose subcut USEASDIRECTD 30 Days Qty: 30 4RF Rx Instructions: 45 units SQ QAM 50 units SQ QPM metformin 1,000 mg tablet 1,000 mg PO BID 30 Days Qty: 60 3RF trazodone 50 mg tablet 50 mg PO BEDTIME 90 Days Qty: 90 1RF acetaminophen [Tylenol Extra Strength] 500 mg tablet 500 mg PO Q6H PRN (Reason: fever or pain) Qty: 14 0RF (DME) cane Device See Rx Instructions .Route Qty: 1 0RF Rx Instructions: As directed (DME) blood-glucose meter [FreeStyle Lite Meter] Kit See Rx Instructions .ROUTE .MEDSUPPLY Qty: 1 0RF Rx Instructions: As directed (DME) FreeStyle Lite Strips Strip See Rx Instructions .ROUTE .MEDSUPPLY Qty: 100 4RF Rx Instructions: As directed TID amlodipine 10 mg tablet 5 mg PO DAILY risperidone [Risperdal] 2 mg tablet 2 mg PO BID 30 Days Qty: 60 0RF lisinopril 10 mg tablet 10 mg PO DAILY 30 Days Qty: 30 3RF (DME) lancets [FreeStyle Lancets] 28 gauge misc See Rx Instructions .Route Qty: 100 4RF Rx Instructions: Blood glucose check morning and evening Jardiance 10 mg tablet 10 mg PO DAILY Qty: 30 3RF Print Language: Lithuanian
[2023-07-28 15:57] VITALS: BP 192/102; PULSE 77; RESP 20; TEMP 36.8; O2SAT 98
[2023-07-28] MEDS: predniSONE 20 MG TABLET 40 MG PO (16:23)
[2023-07-28] MEDS: Ketorolac Tromethamine 30 MG/ML VIAL IM (16:23)
--- NOTE | 2023-07-28 16:39 | ED_ITS ---
HPI - General Adult General Chief complaint: Extremity Problem Stated complaint: R knee pain Time Seen by Provider: 07/28/23 15:11 Source: patient Mode of arrival: ambulatory Limitations: no limitations History of Present Illness HPI narrative: 53-year-old male history of diabetes, CKD 3, hypertension, presents to ED for chronic right knee pain exacerbation. Patient states having extreme before in the past in [place] that resolved with pain medication IM shot to the right buttock. Patient states Toradol was medication name. Patient denies any knee swelling, redness, new trauma, fever, chills, or calf pain. Related Data Home Medications ?Medication ?Instructions ?Recorded ?Confirmed amlodipine 10 mg tablet 5 mg PO DAILY 05/12/23 05/19/23 Previous Rx's ?Medication ?Instructions ?Recorded cane #1 ea 10/10/21 blood sugar diagnostic (FreeStyle #100 ea 04/30/22 Lite Strips) blood-glucose meter (FreeStyle #1 ea 04/30/22 Lite Meter kit) clopidogrel 75 mg tablet 75 mg PO DAILY 30 days #90 tabs 12/09/22 acetaminophen 500 mg tablet 500 mg PO Q6H PRN fever or pain 03/13/23 (Tylenol Extra Strength) #14 tabs insulin human U-100 NPH-regulr 1 sliding scale dose subcut 04/29/23 70-30 mix 100 unit/mL subcutaneous USEASDIRECTD 30 days #30 mL susp risperidone 2 mg tablet (Risperdal) 2 mg PO BID 30 days #60 tabs 05/12/23 lisinopril 10 mg tablet 10 mg PO DAILY 30 days #30 tabs 05/19/23 lancets 28 gauge (FreeStyle #100 ea 06/06/23 Lancets) empagliflozin 10 mg tablet 10 mg PO DAILY #30 tabs 07/18/23 (Jardiance) metformin 1,000 mg tablet 1,000 mg PO BID 30 days #60 tabs 07/22/23 trazodone 50 mg tablet 50 mg PO BEDTIME 90 days #90 tabs 07/24/23 acetaminophen 325 mg capsule 325 mg PO QID PRN pain 7 days #28 07/28/23 caps prednisone 20 mg tablet 40 mg (2 x 20 mg) PO DAILY 5 days 07/28/23 #10 tabs Allergies Allergy/AdvReac Type Severity Reaction Status Date / Time No Known Allergies Allergy Verified 07/28/23 13:33 Review of Systems 2 Review of Systems: Right knee pain. Yes all other systems are reviewed and are negative [facility] Past Medical History Medical History (Updated 07/28/23 @ 16:51 by ANDRES Whitehead) OBEY (acute kidney injury) Poorly controlled diabetes mellitus Sepsis Osteomyelitis Hyperglycemia Hyponatremia Infected sebaceous cyst Acute on chronic osteomyelitis Right foot ulcer Cellulitis of right lower extremity Broken toe PAD (peripheral artery disease) Schizoaffective disorder HCV (hepatitis C virus) Hypertension Diabetes Osteomyelitis Surgical History No pertinent past surgical history Family History Family History Father Diabetes mellitus Social History Social History Household Members: Family Household Members Other:: Friend Housing: House Do you presently have visiting nurse or other home services: No Alcohol intake: former Comment: previously medicated with fentanyl and oxycodone Patient Tobacco Use Status: Former Tobacco user Quit Date: 08/07/21 e-Cigarette/Vaping Use: Never Used Substance Use Type: Marijuana Advance Directives: No Advance Directives Information Provided: No service: No Current occupational status: unemployed and disabled Cognitive needs: Yes Hearing needs: No Vision needs: No Physical Exam ED Vital Signs: Vital Signs - 24 hr 07/28/23 13:31 07/28/23 15:57 07/28/23 17:17 Temperature 99 F 98.2 F Pulse Rate 96 77 Respiratory Rate 18 20 Blood Pressure 184/100 H 192/102 H 164/91 H Pulse Oximetry 98 98 Oxygen Delivery Method Room Air Room Air 07/28/23 19:19 Temperature 98.0 F Pulse Rate 87 Respiratory Rate 17 Blood Pressure 164/91 H Pulse Oximetry 98 Oxygen Delivery Method Room Air BMI result Body Mass Index 34.6 Const General: cooperative, healthy appearing, comfortable, no acute distress, well developed, alert, awake and Physically active Orientation/consciousness: oriented to person, oriented to place, oriented to time and patient oriented x3 HENMT Head: Yes normal to inspection, Yes No palpable skull fracture present, Yes normocephalic, Yes atraumatic and No abrasion Eyes General: appearance normal, both eyes and all related structures Neck Neck: Yes normal visual inspection, Yes full ROM, Yes no lymphadenopathy, Yes no meningeal signs, Yes trachea midline, Yes supple, No anterior neck swelling and No tender Chest Chest palpation & inspection: normal inspection of the chest and normal palpation of entire chest wall Resp Effort & Inspection: normal respiratory effort and able to speak in complete sentences Auscultation: clear to auscultation bilaterally Cardio Jugular venous distension: no JVD Heart sounds: S1 normal heart sound present and S2 normal heart sound present GI Inspection: Yes normal to inspection Palpation (GI): Soft to palpation, not firm, nontender, no guarding and not rigid General: No CVA tenderness and Yes no CVA tenderness Back/Spine/Pelvis Back: no CVA tenderness, No CVA tenderness and No back tenderness Skin General skin exam: no rashes or lesions noted, elasticity normal and turgor normal Neuro General: oriented to person, oriented to place, oriented to time, patient oriented x3, gait normal, tone normal, moves all extremities, Normal light touch and pain sensation, no meningeal signs, no focal motor deficits, CN's II-XI intact bilaterally and normal sensation to monofilament Extrem General: Yes normal to inspection, Yes full ROM and Yes capillary refill normal Upper/lower leg/hip images: 2 1. positive for tenderness on palpation. Negative for ecchymosis, crepitus, , deformity, swelling, stiffness, warmth, hotness, erythema, bluish discoloration,or any other concerning symptoms. Negative for thigh pain, negative for palpable cord. Negative for calf pain. Rest of extremity normal. Motor/neuro/ vascular exam intact. Psych Appearance: grossly normal, well kempt and not disheveled Medications Administered Discontinued Medications Generic Name Dose Route Start Last Admin Trade Name Freq PRN Reason Stop Dose Admin Ketorolac Tromethamine 30 mg 07/28/23 15:48 07/28/23 16:23 Ketorolac Tromethamine 30 Mg/Ml Vial IM 07/28/23 15:49 30 mg ONCE ONE Administration Lisinopril 10 mg 07/28/23 17:13 07/28/23 17:17 Lisinopril 10 Mg Tablet PO 07/28/23 17:14 10 mg ONCE ONE Administration Protocol Prednisone 40 mg 07/28/23 15:48 07/28/23 16:23 Prednisone 20 Mg Tablet PO 07/28/23 15:49 40 mg ONCE ONE Administration Medical Decision Making Medical Decision Making MDM Narrative: Determine history of diabetes hypertension presents to ED for right knee pain exacerbation without any trauma. Right knee x-ray show arthritis and oslgood disease. No need for further imaging. Not suspecting septic joint, DVT, gout, arterial occlusion, fracture, or compartment syndrome. Patient did not take blood pressure medication and with pain blood pressure elevated. Patient given pain medication and dose of his blood pressure medication. No need for further workup. Patient asymptomatic. Not suspecting stroke. Differential Diagnosis Differential Diagnoses: The differential diagnosis associated with the presentation includes ( Knee fracture, knee dislocation, knee sprain, knee arthritis) Admission/Observation Consideration of admission/observation: Escalation of care including admission/observation considered Independent Interpretation I performed an independent interpretation of an: Plain X-Ray Radiology Impression Discussion of test interpretation with radiology: I have reviewed the radiologist's reading. Independent Historian Clinical information obtained from an independent historian. History obtained from or confirmed by: Other ( pain) External Record Review External record reviewed: Other ( prior visits) Prescription Management I considered prescription management with: Pain Medication Discharge Plan Discharge Clinical Impression: Arthritis of knee Patient Disposition: Home, Self-Care Instructions: Osteoarthritis (ED) Additional Instructions: recommend follow-up with the primary care provider. Return to the ED for any swelling, redness, bluish black discoloration, inability to move extremity, numbness/ tingling, calf pain, fever, chills, chest pain, shortness of breath, hotness, coldness, or any other concerning symptoms. Recommend being compliant with high blood pressure medications. uncontrolled hypertension can lead to stroke, heart attack, and worsening kidney function. XR/XR knee RT 3V IMPRESSION: 1. Mild tricompartmental osteoarthritis. Probable loose body. 2. Calcific atherosclerotic disease. Prescriptions: New prednisone 20 mg tablet 40 mg PO DAILY 5 Days Qty: 10 0RF acetaminophen 325 mg capsule 325 mg PO QID PRN (Reason: pain) 7 Days Qty: 28 0RF No Action clopidogrel 75 mg tablet 75 mg PO DAILY 30 Days Qty: 90 0RF Rx Instructions: stent placed 09/05/21 will need for one year or longer insulin NPH and regular human 100 unit/mL (70-30) suspension 1 sliding scale dose subcut USEASDIRECTD 30 Days Qty: 30 4RF Rx Instructions: 45 units SQ QAM 50 units SQ QPM metformin 1,000 mg tablet 1,000 mg PO BID 30 Days Qty: 60 3RF trazodone 50 mg tablet 50 mg PO BEDTIME 90 Days Qty: 90 1RF acetaminophen [Tylenol Extra Strength] 500 mg tablet 500 mg PO Q6H PRN (Reason: fever or pain) Qty: 14 0RF (DME) cane Device See Rx Instructions .Route Qty: 1 0RF Rx Instructions: As directed (DME) blood-glucose meter [FreeStyle Lite Meter] Kit See Rx Instructions .ROUTE .MEDSUPPLY Qty: 1 0RF Rx Instructions: As directed (DME) FreeStyle Lite Strips Strip See Rx Instructions .ROUTE .MEDSUPPLY Qty: 100 4RF Rx Instructions: As directed TID amlodipine 10 mg tablet 5 mg PO DAILY risperidone [Risperdal] 2 mg tablet 2 mg PO BID 30 Days Qty: 60 0RF lisinopril 10 mg tablet 10 mg PO DAILY 30 Days Qty: 30 3RF (DME) lancets [FreeStyle Lancets] 28 gauge misc See Rx Instructions .Route Qty: 100 4RF Rx Instructions: Blood glucose check morning and evening Jardiance 10 mg tablet 10 mg PO DAILY Qty: 30 3RF Stand Alone Forms: Work/School Release Interventions: ED Discharge Assessment Last Done: 07/28/23 19:19 Discharge Date/Time: 07/28/23 19:20 Print Language: Mohawk
[2023-07-28 17:17] VITALS: BP 164/91
[2023-07-28] MEDS: lisinopriL 10 MG TABLET PO (17:17)
[2023-07-28 19:19] VITALS: BP 164/91; PULSE 87; RESP 17; TEMP 36.7; O2SAT 98
== END 2023-07-28 19:20 | disposition home or self-care (01) ==
PROVIDERS: Emergency Provider Emergency Medicine; PCP Nurse Practitioner Family
DX: M25.561 Pain in right knee (principal)
CPT/HCPCS: 73562; 96372; 99284; J1885

== ENCOUNTER → 2023-07-31 14:18 | Outpatient (BNV) | payer OTHER, SELFPAY | PROVIDERS: Visit Provider Nurse Practitioner Family | DX: E11.9 Type 2 diabetes mellitus without complications (principal) | CPT/HCPCS: 83036 ==

== ENCOUNTER 2023-08-02 17:26 | Emergency (ER) | payer OTHER, SELFPAY ==
--- NOTE | ~2023-08-02 | CT_ITS ---
EXAMINATION: CT KNEE WITHOUT CONTRAST, RIGHT CLINICAL INFORMATION: Fall. Pain. COMPARISON: None available. TECHNIQUE: Contiguous axial noncontrast CT scan images of the right knee obtained. Sagittal and coronal reformatted images also obtained. This CT examination was performed using dose optimization techniques as appropriate, variously including the following: *Automated exposure control *Adjustment of mA and/or kV according to patient size (this includes techniques or standardized protocols for targeted exams where dose is matched to indication/reason for exam; i.e. extremities or head) *Use of iterative reconstruction technique DLP: 337 mGy-cm FINDINGS: The bony structures are osteopenic. There is mild to moderate medial and lateral knee degenerative change with mild loss of joint space, subchondral sclerosis and osteophyte formation. No fracture is seen. There is a small joint effusion. There is soft tissue edema about the knee. CT/CT knee RT wo IV con IMPRESSION: Osteopenia. Mild to moderate degenerative change. No fracture or dislocation seen. Small joint effusion and soft tissue edema about the knee.
--- NOTE | ~2023-08-02 | XR_ITS ---
EXAMINATION: XR FOOT, RIGHT CLINICAL INFORMATION: Foot pain with history of osteomyelitis COMPARISON: Right foot 01/08/2022 TECHNIQUE: AP, lateral, and oblique views of the right foot. FINDINGS: At the time of the prior study, the patient appeared to be status post amputation of the fifth toe with only the proximal metatarsal remaining. The distal and now appears healed. No definite bone destruction is seen to suggest the presence of osteomyelitis. Some mild degenerative changes are seen at the interphalangeal joint of the first digit. There is a small plantar calcaneal spur and enthesopathy at the Achilles insertion. Vascular calcifications are seen. No acute fractures. XR/XR foot RT 2V IMPRESSION: 1. No evidence of osteomyelitis or fracture. 2. Incidental note made of mild degenerative changes, calcaneal spurring and vascular calcifications.
--- NOTE | ~2023-08-02 | US_ITS ---
EXAMINATION: US VENOUS ULTRASOUND WITH DOPPLER LOWER EXTREMITY, RIGHT CLINICAL INFORMATION: Right leg pain edema and swelling COMPARISON: Right leg DVT study 09/06/2021 TECHNIQUE: Ultrasound of the deep veins is performed from the hip to the calf with compression sonography and color and pulse Doppler assessment. Spectral analysis with color-flow imaging is performed. FINDINGS: There is normal venous compression and respiratory variation and augmented flow. The visualized common femoral vein, superficial femoral vein, profunda femoral vein, popliteal vein, and the trifurcation region shows no evidence of deep venous thrombosis. There is no significant popliteal fossa cyst. The contralateral left common femoral vein appears normal. Both superior and inferior to the patella anteriorly there is some soft tissue edema and an ill-defined fluid collection. If the patient's symptoms persist, followup ultrasound in 5 days 7 days might be of value to exclude proximal propagation from a non-visualized calf vein. US/US venous duplex LE RT IMPRESSION: No DVT demonstrated in the right lower extremity. Complex fluid seen above and below the patella.
[2023-08-02 17:46] VITALS: BP 167/104; PULSE 114; RESP 20; TEMP 36.6; O2SAT 95; BMI 77.7
--- NOTE | 2023-08-02 17:46 | ED.GENADULT ---
HPI - General Adult General Chief complaint: Extremity Problem Stated complaint: R knee pain Time Seen by Provider: 08/03/23 03:00 History of Present Illness HPI narrative: PATIENT IS A 53-YEAR-OLD MALE WITH A HISTORY OF POLYSUBSTANCE ABUSE history of hypertension history of peripheral vascular disease. Presented today with having pain to the right knee. Patient claims he was here about 5 days ago. Was given a shot subsequently sent home the pain is not helping. Came back for further evaluation Related Data Home Medications ?Medication ?Instructions ?Recorded ?Confirmed amlodipine 10 mg tablet 5 mg PO DAILY 05/12/23 05/19/23 Previous Rx's ?Medication ?Instructions ?Recorded cane #1 ea 10/10/21 blood sugar diagnostic (FreeStyle #100 ea 04/30/22 Lite Strips) blood-glucose meter (FreeStyle #1 ea 04/30/22 Lite Meter kit) clopidogrel 75 mg tablet 75 mg PO DAILY 30 days #90 tabs 12/09/22 acetaminophen 500 mg tablet 500 mg PO Q6H PRN fever or pain 03/13/23 (Tylenol Extra Strength) #14 tabs insulin human U-100 NPH-regulr 1 sliding scale dose subcut 04/29/23 70-30 mix 100 unit/mL subcutaneous USEASDIRECTD 30 days #30 mL susp risperidone 2 mg tablet (Risperdal) 2 mg PO BID 30 days #60 tabs 05/12/23 lisinopril 10 mg tablet 10 mg PO DAILY 30 days #30 tabs 05/19/23 lancets 28 gauge (FreeStyle #100 ea 06/06/23 Lancets) empagliflozin 10 mg tablet 10 mg PO DAILY #30 tabs 07/18/23 (Jardiance) metformin 1,000 mg tablet 1,000 mg PO BID 30 days #60 tabs 07/22/23 trazodone 50 mg tablet 50 mg PO BEDTIME 90 days #90 tabs 07/24/23 acetaminophen 325 mg capsule 325 mg PO QID PRN pain 7 days #28 07/28/23 caps prednisone 20 mg tablet 40 mg (2 x 20 mg) PO DAILY 5 days 07/28/23 #10 tabs Allergies Allergy/AdvReac Type Severity Reaction Status Date / Time No Known Allergies Allergy Verified 08/02/23 17:48 Review of Systems Review of Systems: Positive knee pain Yes all other systems are reviewed and are negative PMFSH Past Medical History Attestation statement: The following information was validated with the patient. Medical History OBEY (acute kidney injury) Poorly controlled diabetes mellitus Sepsis Osteomyelitis Hyperglycemia Hyponatremia Infected sebaceous cyst Acute on chronic osteomyelitis Right foot ulcer Cellulitis of right lower extremity Broken toe PAD (peripheral artery disease) Schizoaffective disorder HCV (hepatitis C virus) Hypertension Diabetes Osteomyelitis Surgical History No pertinent past surgical history Family History Family History Father Diabetes mellitus Social History Social History Household Members: Family Household Members Other:: Friend Housing: House Do you presently have visiting nurse or other home services: No Alcohol intake: former Comment: previously medicated with fentanyl and oxycodone Patient Tobacco Use Status: Former Tobacco user Quit Date: 08/07/21 e-Cigarette/Vaping Use: Never Used Substance Use Type: Marijuana Advance Directives: No Advance Directives Information Provided: No Do you have a plan to hurt others: No Plan service: No Current occupational status: unemployed and disabled Cognitive needs: Yes Hearing needs: No Vision needs: No Physical Exam ED Vital Signs: Vital Signs - 24 hr 08/02/23 17:46 08/03/23 03:01 Temperature 98 F 98.1 F Pulse Rate 114 H 106 H Respiratory Rate 20 17 Blood Pressure 167/104 H 175/94 H Pulse Oximetry 95 99 Oxygen Delivery Method Room Air Room Air BMI result Body Mass Index 77.7 Appearance: Alert. Oriented X3. No acute distress. Eyes: Pupils equal, round and reactive to light. ENT: Pharynx normal. Neck: Normal inspection. Neck supple. No lymph nodes noted. No crepitus CVS: Normal heart rate and rhythm. Pulses normal. Normal S1 and S2 Respiratory: No respiratory distress. Breath sounds normal. No Wheezing. No rales Abdomen: Soft and nontender. No rigidity. No distention. good BS x4 Skin: Skin warm and dry. Normal skin color. Normal skin turgor. Extremities: Positive pain on palpation of the right knee. Range of motion limited secondary to pain. There has no warmth to the knee. There has no gross joint effusion noted. There has no tenderness on palpation of patella. Just anterior to the knee there is an area of slight induration. There is no medial or lateral collateral ligament tenderness. There is good distal pulses. Sensation over the foot intact. There is no lesion over the foot. Neuro: Oriented X 3. No motor deficit. No sensory deficit. Moving all extermities. No slurred speech Course Course Course Narrative: This is a rapid medical exam. Deferred additional HPI, ROS, PE to primary provider. 53 yp male with history of diabetes, CKD 3, hypertension here with right knee pain x 1 week. No falls or injury. Also c/o right foot pain and feels like his lower leg/calf is swollen and painful. had x-rays right knee on the Will check x-rays of right foot, US, labs VSS -A. [employer]oc[employer] Medications Administered Discontinued Medications Generic Name Dose Route Start Last Admin Trade Name Freq PRN Reason Stop Dose Admin Hydromorphone HCl 0.5 mg 08/03/23 03:16 08/03/23 03:33 Hydromorphone Hcl 0.5 Mg/0.5 Ml Syringe IVPUSH 08/03/23 03:17 0.5 mg ONCE ONE Administration Protocol Medical Decision Making Medical Decision Making [facility] Narrative: Positive pain to the right knee. History of diabetes. History of arthritis in the past. Patient was on steroids recently for the osteoarthritis. His labs showed an elevated white count but there is no significant change in differential. More likely this is demargination. Lactate is normal no evidence for severe sepsis. CT scan of the knee was done. Only minimal amount of joint effusion. Did not feel a good amount of fluids to aspirate. Patient has moderate amount of arthritis. Doppler of the lower extremity showed no evidence of DVT. There is good distal pulses there is no evidence of bad peripheral vascular disease. Patient's case discussed with family. Will discharge patient home. Differential Diagnosis Differential Diagnoses: The differential diagnosis associated with the presentation includes Peripheral vascular disease, diabetes, arthritis, DVT, fracture, osteoarthritis, knee effusion, joint infection Admission/Observation Consideration of admission/observation: Escalation of care including admission/observation considered Lab Data [facility] Lab Attestation statement: I reviewed the patient's lab results. 08/02/23 19:17 08/02/23 19:17 Labs: Lab Results 08/02/23 08/03/23 Range/Units 19:17 03:29 WBC 16.8 H (4.8-10.8) X10*3/uL RBC 5.67 (4.60-5.80) X10*6/uL Hgb 14.6 (14.0-18.0) g/dl Hct 43.8 (42.0-52.0) % MCV 77.2 L (80.0-98.0) fL MCH 25.7 L (27.0-33.0) pg MCHC 33.3 (31.0-36.0) g/dl RDW 14.0 (11.0-16.0) % Plt Count 363 (160-400) X10*3/uL MPV 10.3 (9.4-12.4) fL Immature Gran % (Auto) 0.8 H (0.0-0.4) % Neut % (Auto) 74.4 H (45-73) % Lymph % (Auto) 17.3 L (20-40) % [place] % (Auto) 6.6 (2-11) % Eos % (Auto) 0.5 (0-4) % Baso % (Auto) 0.4 (0-2) % Lymph # (Auto) 2.9 (1.2-4.9) X10*3/uL [place] # (Auto) 1.1 (0.1-1.2) X10*3/uL Eos # (Auto) 0.1 (0.0-0.4) X10*3/uL Baso # (Auto) 0.1 (0.0-0.2) X10*3/uL Abs Immat Gran (auto) 0.13 H (0.00-0.03) X10*3/uL Absolute Neuts (auto) 12.5 H (2.0-8.3) x10*3/uL Absolute Nucleated RBC 0.000 (0.0-0.012) X10*3/uL Nucleated RBC % (auto) 0.0 (0.0-0.2) /100WBC Sodium 135 (135-145) mmol/L Potassium 3.8 (3.3-5.1) mmol/L Chloride 98 (96-108) mmol/L Carbon Dioxide 23 (22-29) mmol/L Anion Gap 18 (12-20) BUN 27 H (9-16) mg/dL Creatinine 1.41 H (0.5-1.4) mg/dL Estim Creat Clear Calc 112.3 Estimated GFR 53 Random Glucose 362 H* (60-115) mg/dL Lactic Acid 1.7 (0.5-2.0) mmol/L Calcium 9.4 D (8.4-10.2) mg/dL Radiology Impression Discussion of test interpretation with radiology: I have reviewed the radiologist's reading. External Record Review External record reviewed: Inpatient record Previous records reviewed including previous ED record. Chronic Conditions Schizophrenia, diabetes Social Determinants Patient?s care significantly limited by Social Determinants of Health including: Problems related to primary support group Discharge Plan Discharge Clinical Impression: Arthritis Patient Disposition: Home, Self-Care Instructions: Osteoarthritis (DC) Prescriptions: No Action clopidogrel 75 mg tablet 75 mg PO DAILY 30 Days Qty: 90 0RF Rx Instructions: stent placed 09/05/21 will need for one year or longer insulin NPH and regular human 100 unit/mL (70-30) suspension 1 sliding scale dose subcut USEASDIRECTD 30 Days Qty: 30 4RF Rx Instructions: 45 units SQ QAM 50 units SQ QPM metformin 1,000 mg tablet 1,000 mg PO BID 30 Days Qty: 60 3RF trazodone 50 mg tablet 50 mg PO BEDTIME 90 Days Qty: 90 1RF acetaminophen [Tylenol Extra Strength] 500 mg tablet 500 mg PO Q6H PRN (Reason: fever or pain) Qty: 14 0RF prednisone 20 mg tablet 40 mg PO DAILY 5 Days Qty: 10 0RF acetaminophen 325 mg capsule 325 mg PO QID PRN (Reason: pain) 7 Days Qty: 28 0RF (DME) cane Device See Rx Instructions .Route Qty: 1 0RF Rx Instructions: As directed (DME) blood-glucose meter [FreeStyle Lite Meter] Kit See Rx Instructions .ROUTE .MEDSUPPLY Qty: 1 0RF Rx Instructions: As directed (DME) FreeStyle Lite Strips Strip See Rx Instructions .ROUTE .MEDSUPPLY Qty: 100 4RF Rx Instructions: As directed TID amlodipine 10 mg tablet 5 mg PO DAILY risperidone [Risperdal] 2 mg tablet 2 mg PO BID 30 Days Qty: 60 0RF lisinopril 10 mg tablet 10 mg PO DAILY 30 Days Qty: 30 3RF (DME) lancets [FreeStyle Lancets] 28 gauge misc See Rx Instructions .Route Qty: 100 4RF Rx Instructions: Blood glucose check morning and evening Jardiance 10 mg tablet 10 mg PO DAILY Qty: 30 3RF Referrals: David Eric [Primary Care Provider] - 08/05/23 Print Language: Frisian
[2023-08-02 19:20] LABS: MANUAL DIFF FLAG NO
[2023-08-02 19:21] LABS: Basophils Absolute Auto 0.1 X10*3/uL (0.0-0.2); Basophils Percent Auto 0.4 % (0-2); Eosinophils Absolute Auto 0.1 X10*3/uL (0.0-0.4); Eosinophils Percent Auto 0.5 % (0-4); Hematocrit 43.8 % (42.0-52.0); Hemoglobin 14.6 g/dl (14.0-18.0); Imm Gran Abs Auto 0.13 X10*3/uL (0.00-0.03); Imm Gran Pct Auto 0.8 % (0.0-0.4); Lymphocytes Absolute Auto 2.9 X10*3/uL (1.2-4.9); Lymphocytes Percent Auto 17.3 % (20-40); Mean Corpuscular HGB Conc 33.3 g/dl (31.0-36.0); Mean Corpuscular Hemoglobin 25.7 pg (27.0-33.0); Mean Corpuscular Volume 77.2 fL (80.0-98.0); Mean Platelet Volume 10.3 fL (9.4-12.4); Monocytes Absolute Auto 1.1 X10*3/uL (0.1-1.2); Monocytes Percent Auto 6.6 % (2-11); Neutrophils Absolute Auto 12.5 x10*3/uL (2.0-8.3); Neutrophils Percent Auto 74.4 % (45-73); Platelet Count 363 X10*3/uL (160-400); Red Blood Count 5.67 X10*6/uL (4.60-5.80); White Blood Count 16.8 X10*3/uL (4.8-10.8)
[2023-08-02 19:35] LABS: Anion Gap 18 (12-20); Blood Urea Nitrogen 27 mg/dL (9-16); Calcium 9.4 mg/dL (8.4-10.2); Carbon Dioxide 23 mmol/L (22-29); Chloride 98 mmol/L (96-108); Creatinine Clr Calc Pharmacy 112.3; Estimated Glomerular Filt Rate 53; Glucose Random 362 mg/dL (60-115); Potassium 3.8 mmol/L (3.3-5.1); Sodium 135 mmol/L (135-145)
[2023-08-03 03:01] VITALS: BP 175/94; PULSE 106; RESP 17; TEMP 36.7; O2SAT 99
--- NOTE | 2023-08-03 03:23 | ED.EXTPRO ---
HPI - Extremity Problem General Chief complaint: Extremity Problem Stated complaint: R knee pain Time Seen by Provider: 08/03/23 03:00 Related Data Home Medications ?Medication ?Instructions ?Recorded ?Confirmed amlodipine 10 mg tablet 5 mg PO DAILY 05/12/23 05/19/23 Previous Rx's ?Medication ?Instructions ?Recorded cane #1 ea 10/10/21 blood sugar diagnostic (FreeStyle #100 ea 04/30/22 Lite Strips) blood-glucose meter (FreeStyle #1 ea 04/30/22 Lite Meter kit) clopidogrel 75 mg tablet 75 mg PO DAILY 30 days #90 tabs 12/09/22 acetaminophen 500 mg tablet 500 mg PO Q6H PRN fever or pain 03/13/23 (Tylenol Extra Strength) #14 tabs insulin human U-100 NPH-regulr 1 sliding scale dose subcut 04/29/23 70-30 mix 100 unit/mL subcutaneous USEASDIRECTD 30 days #30 mL susp risperidone 2 mg tablet (Risperdal) 2 mg PO BID 30 days #60 tabs 05/12/23 lisinopril 10 mg tablet 10 mg PO DAILY 30 days #30 tabs 05/19/23 lancets 28 gauge (FreeStyle #100 ea 06/06/23 Lancets) empagliflozin 10 mg tablet 10 mg PO DAILY #30 tabs 07/18/23 (Jardiance) metformin 1,000 mg tablet 1,000 mg PO BID 30 days #60 tabs 07/22/23 trazodone 50 mg tablet 50 mg PO BEDTIME 90 days #90 tabs 07/24/23 acetaminophen 325 mg capsule 325 mg PO QID PRN pain 7 days #28 07/28/23 caps prednisone 20 mg tablet 40 mg (2 x 20 mg) PO DAILY 5 days 07/28/23 #10 tabs Allergies Allergy/AdvReac Type Severity Reaction Status Date / Time No Known Allergies Allergy Verified 08/02/23 17:48 [facility] Past Medical History Medical History OBEY (acute kidney injury) Poorly controlled diabetes mellitus Sepsis Osteomyelitis Hyperglycemia Hyponatremia Infected sebaceous cyst Acute on chronic osteomyelitis Right foot ulcer Cellulitis of right lower extremity Broken toe PAD (peripheral artery disease) Schizoaffective disorder HCV (hepatitis C virus) Hypertension Diabetes Osteomyelitis Surgical History No pertinent past surgical history Family History Family History Father Diabetes mellitus Social History Social History Household Members: Family Household Members Other:: Friend Housing: House Do you presently have visiting nurse or other home services: No Alcohol intake: former Comment: previously medicated with fentanyl and oxycodone Patient Tobacco Use Status: Former Tobacco user Quit Date: 08/07/21 e-Cigarette/Vaping Use: Never Used Substance Use Type: Marijuana Advance Directives: No Advance Directives Information Provided: No Do you have a plan to hurt others: No Plan service: No Current occupational status: unemployed and disabled Cognitive needs: Yes Hearing needs: No Vision needs: No Physical Exam Vital Signs: Vital Signs: Last Vital Signs Temp 98.1 F 08/03/23 03:01 Pulse 106 H 08/03/23 03:01 Resp 17 08/03/23 03:01 BP 175/94 H 08/03/23 03:01 Pulse Ox 99 08/03/23 03:01 O2 Del Method Room Air 08/03/23 03:01 BMI result Body Mass Index 77.7 Medications Administered Discontinued Medications Generic Name Dose Route Start Last Admin Trade Name Joe PRN Reason Stop Dose Admin Hydromorphone HCl 0.5 mg 08/03/23 03:16 08/03/23 03:33 Hydromorphone Hcl 0.5 Mg/0.5 Ml Syringe IVPUSH 08/03/23 03:17 0.5 mg ONCE ONE Administration Protocol Medical Decision Making Medical Decision Making [facility] Narrative: Patient is 53 years old presents today with having pain to the right knee. Was given an injection for pain. However patient is still complaining of pain not getting any better. Patient was also given steroid. Labs today showed elevated white count but there is no significant shift. Because of patient's pain a CT of the knee was done. There was no large knee effusion to tap. There is no fracture. There has no gross sign of osteo. Patient well-appearing. Pain localized to the knee. Will require follow-up with orthopedics on an outpatient basis. Doppler of the lower extremity showed no evidence of DVT. Differential Diagnosis Differential Diagnoses: The differential diagnosis associated with the presentation includes Arthritis, diabetes, fracture, joint effusion, internal derangement of the knee Admission/Observation Consideration of admission/observation: Escalation of care including admission/observation considered Lab Data MDM Lab Attestation statement: I reviewed the patient's lab results. 08/02/23 19:17 08/02/23 19:17 Labs: Lab Results 08/02/23 08/03/23 Range/Units 19:17 03:29 WBC 16.8 H (4.8-10.8) X10*3/uL RBC 5.67 (4.60-5.80) X10*6/uL Hgb 14.6 (14.0-18.0) g/dl Hct 43.8 (42.0-52.0) % MCV 77.2 L (80.0-98.0) fL MCH 25.7 L (27.0-33.0) pg MCHC 33.3 (31.0-36.0) g/dl RDW 14.0 (11.0-16.0) % Plt Count 363 (160-400) X10*3/uL MPV 10.3 (9.4-12.4) fL Immature Gran % (Auto) 0.8 H (0.0-0.4) % Neut % (Auto) 74.4 H (45-73) % Lymph % (Auto) 17.3 L (20-40) % [place] % (Auto) 6.6 (2-11) % Eos % (Auto) 0.5 (0-4) % Baso % (Auto) 0.4 (0-2) % Lymph # (Auto) 2.9 (1.2-4.9) X10*3/uL [place] # (Auto) 1.1 (0.1-1.2) X10*3/uL Eos # (Auto) 0.1 (0.0-0.4) X10*3/uL Baso # (Auto) 0.1 (0.0-0.2) X10*3/uL Abs Immat Gran (auto) 0.13 H (0.00-0.03) X10*3/uL Absolute Neuts (auto) 12.5 H (2.0-8.3) x10*3/uL Absolute Nucleated RBC 0.000 (0.0-0.012) X10*3/uL Nucleated RBC % (auto) 0.0 (0.0-0.2) /100WBC Sodium 135 (135-145) mmol/L Potassium 3.8 (3.3-5.1) mmol/L Chloride 98 (96-108) mmol/L Carbon Dioxide 23 (22-29) mmol/L Anion Gap 18 (12-20) BUN 27 H (9-16) mg/dL Creatinine 1.41 H (0.5-1.4) mg/dL Estim Creat Clear Calc 112.3 Estimated GFR 53 Random Glucose 362 H* (60-115) mg/dL Lactic Acid 1.7 (0.5-2.0) mmol/L Calcium 9.4 D (8.4-10.2) mg/dL Independent Interpretation I performed an independent interpretation of an: CT Scan (CT scan of the knee was done grossly did not see any fracture) Radiology Impression Discussion of test interpretation with radiology: I have reviewed the radiologist's reading. External Record Review Previous hospital record reviewed Discharge Plan Discharge Clinical Impression: Arthritis Patient Disposition: Home, Self-Care Instructions: Osteoarthritis (DC) Prescriptions: No Action clopidogrel 75 mg tablet 75 mg PO DAILY 30 Days Qty: 90 0RF Rx Instructions: stent placed 09/05/21 will need for one year or longer insulin NPH and regular human 100 unit/mL (70-30) suspension 1 sliding scale dose subcut USEASDIRECTD 30 Days Qty: 30 4RF Rx Instructions: 45 units SQ QAM 50 units SQ QPM metformin 1,000 mg tablet 1,000 mg PO BID 30 Days Qty: 60 3RF trazodone 50 mg tablet 50 mg PO BEDTIME 90 Days Qty: 90 1RF acetaminophen [Tylenol Extra Strength] 500 mg tablet 500 mg PO Q6H PRN (Reason: fever or pain) Qty: 14 0RF prednisone 20 mg tablet 40 mg PO DAILY 5 Days Qty: 10 0RF acetaminophen 325 mg capsule 325 mg PO QID PRN (Reason: pain) 7 Days Qty: 28 0RF (DME) cane Device See Rx Instructions .Route Qty: 1 0RF Rx Instructions: As directed (DME) blood-glucose meter [FreeStyle Lite Meter] Kit See Rx Instructions .ROUTE .MEDSUPPLY Qty: 1 0RF Rx Instructions: As directed (DME) FreeStyle Lite Strips Strip See Rx Instructions .ROUTE .MEDSUPPLY Qty: 100 4RF Rx Instructions: As directed TID amlodipine 10 mg tablet 5 mg PO DAILY risperidone [Risperdal] 2 mg tablet 2 mg PO BID 30 Days Qty: 60 0RF lisinopril 10 mg tablet 10 mg PO DAILY 30 Days Qty: 30 3RF (DME) lancets [FreeStyle Lancets] 28 gauge misc See Rx Instructions .Route Qty: 100 4RF Rx Instructions: Blood glucose check morning and evening Jardiance 10 mg tablet 10 mg PO DAILY Qty: 30 3RF Referrals: David Eric [Primary Care Provider] - 08/05/23 Print Language: Kyrgyz
[2023-08-03] MEDS: HYDROmorphone HCl 0.5 MG/0.5 ML SYRINGE IVPUSH (03:33)
[2023-08-03 03:45] LABS: Lactic Acid 1.7 mmol/L (0.5-2.0)
[2023-08-03 05:45] VITALS: BP 175/94; PULSE 106; RESP 17; TEMP 36.7; O2SAT 99
== END 2023-08-03 05:45 | disposition home or self-care (01) ==
PROVIDERS: Nurse Practitioner Family; Emergency Provider Emergency Medicine Emergency Medical Services
DX: M17.9 Osteoarthritis of knee, unspecified (principal); M25.561 Pain in right knee; I10 Essential (primary) hypertension; I73.9 Peripheral vascular disease, unspecified
CPT/HCPCS: 36415; 73620; 73700; 80048; 83605; 85025; 87040; 93971; 96374; 99283; 99284; J1170

== ENCOUNTER 2023-09-29 13:29 | Outpatient (AMB) | payer OTHER, SELFPAY ==
--- NOTE | 2023-09-29 13:32 | A.OFFPC_ITS ---
Vital Signs 09/29/23 13:42 Weight 234 lb BP 130/70 Blood Pressure Location Rt brachial Position Sitting Respiration 16 Pulse 97 Pulse Source Pulse Oximeter Temp 97.5 F Temp Source Temporal Artery Scan Pulse Oximetry (%) 98 Oxygen Delivery Method Room Air Intake Visit Reasons: HTN, schizophrenia, anemia- missed 06/29 Intake Note: patient here for follow. he states he needs refills on all meds. Accompanied by: Other Relationship Allergies No Known Allergies Allergy (Verified 09/29/23 13:48) Medication List - Last Reviewed 09/30/23 by Ana Sotelo amlodipine 5 mg PO DAILY blood sugar diagnostic (FreeStyle Lite Strips) As directed TID blood-glucose meter (FreeStyle Lite Meter kit) As directed cane As directed clopidogrel 75 mg PO DAILY 30 days [id number]-GG 325 mg(d)/12.5 mg-325 mg (n) ea PO Q6H docusate sodium 100 mg PO BID empagliflozin (Jardiance) 10 mg PO DAILY gabapentin 100 mg PO TID insulin glargine 25 units (0.25 mL) subcut BID insulin lispro 1 sliding scale dose subcut USEASDIRECTD lancets (FreeStyle Lancets) Blood glucose check morning and evening lisinopril 10 mg PO DAILY 30 days metformin 1,000 mg PO BID 30 days risperidone (Risperdal) 2 mg PO BID 30 days trazodone 50 mg PO BEDTIME 90 days Tobacco use date assessed: 09/29/23 Dental Screening Dental Screen Date: 09/29/23 Did you have a dental visit in the last 12 months?: No Did you have a dental problem in the last 6 months where you did not have access to dental care?: No HPI HPI Comments History of Present Illness Details 53-year-old Marshallese-speaking male, accom panied by his sis ter-in-law/caregiver, presents for chronic disease management follow-up He admits to taking his medications as prescribed without adverse reactions. However, he is completely out of his medications and needs refills, per his caregiver. Patient and caregiver do not know the names of his current medications According to his caregiver, the patient was admitted at [facility] for 1 week last week d/t infection in this right knee. An I and D was performed. He was transferred to [facility] and was there for 3 week. She notes that [facility] providing [facility] care treatment three times weekly. His caregiver also notes that the that was significant medication changes during the course of the patient's recent hospitalization; she does not recall which changes were made; no record available at this time The patient's caregiver notes that the patient is followed by [facility] He reports right new pain. Denies any other symptoms Interpretation by the patient's caregiver per patient's preference We later retrieved the patient record from [facility]. He presented to the hospital with atraumatic right knee pain/swelling and found to have prepatellar bursitis and abscess in the right knee requiring I&D. His course was complicated by hyperglycemia requiring insulin drip. Initial labs revealed leukocytosis and acute kidney injury, and concern for diabetic ketoacidosis. He initially presented to the emergency department on 08/06/2023 but left against medical advice on postop day 3, August 07. He returned to the hospital on August 11 with worsening right knee pain and inability to weight bear on that extremity. CTA of the chest ruled out PE, but showed evidence of possible mesenteric panniculitis and mild splenomegaly. CT of the right lower extremity showed possible abscess superior and medially to the right knee with no gas, therefore necrotizing fasciitis ruled out but there was a probable patella bursitis. Duplex of the extremity was negative for DVT. He underwent excision of a septic prepatellar bursitis and incision and drainage of right thigh abscess with 100 mL of purulent drainage. Wound was packed and dressed with an Parminder wrap and he was admitted to the Surgical Trauma ICU not requiring vasoactive agents or intubated but for blood glucose management as he was hyperglycemic with elevated blood sugars requiring insulin drip. HbA1c was 13.2% on 08/15/2023. He was admitted on 08/04/2023 and discharged to rehab on 08/18/2023. He was instructed to follow-up with his PCP in 1-2 weeks; outpatient Endocrine and Infectious Disease. Discharge medications: Acetaminophen 325 mg, 3 times every 6 hours Amlodipine 5 mg daily Aspirin 81 mg twice daily - will change to 81 mg daily Clopidogrel 75 mg daily Docusate 100 mg twice daily - will change to 100 mg daily Gabapentin 100 mg 3 times daily - will change to 300 mg QHS Lantus 25 units twice daily Lispro sliding scale (100-149 = 12 units, 150-199 = 15 units, 200-249 = 18 units, 250-299 = 21 units, 300-449 = 24 units, 350-399 = 27 units, 400-449 = 30 units, call if blood glucose is less than 70 or greater than 400 Linezolid 600 mg every 12 hours for 14 days Oxycodone 5 mg every 6 hours as needed for moderate pain 5 days Risperidone 2 mg twice daily Trazodone 50 mg daily at bedtime He was referred to [facility]. The medical receptionist assistant contacted them today and was informed that the patient had an appointment with them in 08/2023 the called and canceled because he was hospitalized. He would have to call and reschedule an appointment with them [facility] Medical History (Updated 09/30/23 @ 14:13 by Ana Sotelo) PVD (peripheral vascular disease) Amputation of fifth toe of right foot OBEY (acute kidney injury) Poorly controlled diabetes mellitus Sepsis Osteomyelitis Hyperglycemia Hyponatremia Infected sebaceous cyst Acute on chronic osteomyelitis Right foot ulcer Cellulitis of right lower extremity Broken toe PAD (peripheral artery disease) Schizoaffective disorder HCV (hepatitis C virus) Hypertension Diabetes Osteomyelitis Surgical History No pertinent past surgical history Family History Father Diabetes mellitus Social History Household Members: Family Household Members Other:: Friend Housing: House Do you presently have visiting nurse or other home services: No Alcohol intake: former Comment: previously medicated with fentanyl and oxycodone Patient Tobacco Use Status: Former Tobacco user e-Cigarette/Vaping Use: Never Used Substance Use Type: Marijuana service: No Current occupational status: unemployed and disabled Cognitive needs: Yes Hearing needs: No Vision needs: No Questionnaire PHQ-9 Over the last 2 weeks, how often have you been bothered by any of the following problems? 1. Little interest or pleasure in doing things: several days 2. Feeling down, depressed, or hopeless: more than half the days 3. Trouble falling or staying asleep, or sleeping too much: more than half the days 4. Feeling tired or having little energy: not at all 5. Poor appetite or overeating: not at all 6. Feeling bad about yourself - or that you are a failure or have let yourself or your family down: not at all 7. Trouble concentrating on things, such as reading the newspaper or watching television: not at all 8. Moving or speaking so slowly that other people could have noticed. Or the opposite - being so fidgety or restless that you have been moving around a lot more than usual: not at all 9. Thoughts that you would be better off or of hurting yourself in some way: not at all Total score: 5 Depression Screening Interpretation: Negative Depression Screening Done: Yes 41309 - PHQ-9 Billing: Yes Source: Developed by Drs. Jonathan Smalls, Chary Hall, Escobar Gutierrez and colleagues, with an educational weston from [employer]. Thrive Questionnaire Date Thrive assessed: 04/30/22 AUDIT C Alcohol Use Questionnaire (AUDIT-C) 1. How often do you have a drink containing alcohol?: Never Total Score: 0 INESSA-7 AMB Questionnaire INESSA-7 Date INESSA - 7 assessed: 05/19/23 Source: Developed by Drs. Jonathan Smalls, Chary Hall, Escobar Gutierrez and colleagues, with an educational weston from [employer]. Review of Systems Const Details: Const Denies chills, Denies fatigue, Denies fever(s), Denies headache(s) and Denies weakness ENT Denies dizziness and Denies headache(s) Card Denies chest pain, Denies lightheadedness, Denies dyspnea and Denies other (Palpitations) Resp Denies cough, Denies dyspnea, Denies wheezing and Denies other ( shortness of breath) GI Denies abdominal pain, Denies melena, Denies hematochezia, Denies change in bowel habits, Denies dyspepsia and Denies nausea Denies hematuria and Denies dysuria Musc Denies abnormal gait, Denies myalgias, Denies arthralgias, Denies numbness and Denies tingling Skin/Breast Denies rash, Denies unusual bruising and Denies wounds Neuro Denies abnormal gait, Denies dizziness, Denies headache(s), Denies memory loss, Denies numbness, Denies Sensory deficit (Neuro), Denies tingling and Denies weakness Psych Denies anxiety, Denies depression, Denies memory loss Endo Denies cold intolerance, Denies fatigue, Denies heat intolerance, Denies polydipsia and Denies polyuria Aller/Immun Denies wheezing Physical exam (Primary Care) Vital Signs: Last Vital Signs Temp 97.5 F 09/29/23 13:42 Pulse 97 09/29/23 13:42 Resp 16 09/29/23 13:42 BP 130/70 09/29/23 13:42 Pulse Ox 98 09/29/23 13:42 Oxygen Delivery Method Room Air 09/29/23 13:42 Tobacco/Smoking Status: Tobacco use Status Tobacco use date assessed 09/29/23 09/29/23 13:38 Patient Tobacco Use Status Former Tobacco user 09/29/23 13:33 e-Cigarette/Vaping Use Never Used 09/29/23 13:33 PHQ-9: PHQ-9 Score PHQ-9: Total score 5 09/30/23 18:11 Depression Screening Interpretation: Negative Thrive Assessment: Date of Thrive Assessment Date Thrive assessed 04/30/22 09/29/23 13:33 Const Other: General: no acute distress and well developed Nutritional Appearance: well nourished Orientation/consciousness: patient oriented x3 HENMT Head: Yes normocephalic and Yes atraumatic Eyes General: appearance normal, both eyes and all related structures Pupils: Equal, round and reactive pupils present EOM: EOMs intact bilaterally Resp Effort & Inspection: normal respiratory effort Auscultation: clear to auscultation bilaterally Cardio Rate: regular rate Rhythm: regular rhythm Heart sounds: S1 normal heart sound present, S2 normal heart sound present, no gallops, no murmurs and no rubs GI Palpation (GI): No Abdominal aortic bruit present, Soft to palpation, nontender, No hepatosplenomegaly present and No Rebound tenderness present Auscultation: normal bowel sounds General: Yes no CVA tenderness Back/Spine/Pelvis Back: no CVA tenderness Cervical Spine: cervical ROM normal and No Cervical spine tenderness Thoracic/Lumbar Spine: thoraco-lumbar ROM normal, No pain with thoraco-lumbar ROM, No thoracic spinal tenderness and No lumbar spinal tenderness Extrem General: Yes normal to inspection, No edema and No calf tenderness Skin General: warm and dry. Normal skin color. Normal skin turgor Neuro General: patient oriented x3, gait normal and no focal neuro deficit Cranial nerves: Yes Equal, round and reactive pupils present Cognition (Neuro): normal cognition Gait exam (Neuro): Normal gait present Sensory Exam: No Sensory deficit (Neuro) Psych Appearance: grossly normal Affect: normal affect Attitude: cooperative Thought process: Normal thought process present Assessment and Plan Assessment & Plan (1) Hypertension: Code(s): I10 - Essential (primary) hypertension Qualifiers: Hypertension type: renovascular hypertension Qualified Code(s): I15.0 - Renovascular hypertension Plan: Blood pressure today is 130/70, slightly above goal of less than 130/80 Continue current treatment regimen Low-sodium diet encouraged Follow-up early November or sooner with symptoms or concerns Verbalized understanding and agreed with treatment plan Will referred to [facility]NA services for frequent assessments and medication management/administration promote treatment adherence (2) Diabetes mellitus with multiple complications: Code(s): E11.8 - Type 2 diabetes mellitus with unspecified complications Plan: HbA1c was 13.2% on 08/15/2023, above goal of less than 7.0% Will recheck A1c later next month Continue current treatment regimen Advised to call [facility] as soon as possible to schedule an appointment for management of his uncontrolled diabetes ADA diet and routine exercise encouraged Following up in early November or sooner with symptoms or concerns Verbalized understanding and agreed with the treatment plan (3) Schizophrenia: Code(s): F20.9 - Schizophrenia, unspecified Qualifiers: Schizophrenia type: paranoid schizophrenia Qualified Code(s): F20.0 - Paranoid schizophrenia Plan: No acute symptoms Continue current treatment regimen Routine exercise encouraged He was referred to Psychiatry earlier this year but has not establish care. [facility] informed about this and asked to place a new psychiatric referral for the patient Follow-up in November or sooner with symptoms or concerns Verbalized understanding and agreed with the treatment plan (4) Bipolar 1 disorder: Code(s): F31.9 - Bipolar disorder, unspecified Plan: As done Orders: [facility]errals [facility] Referral E11.21 - Type 2 diabetes mellitus with diabetic nephropathy, E11.8 - Type 2 diabetes mellitus with unspecified complications, F20.0 - Paranoid schizophrenia, F31.9 - Bipolar disorder, unspecified, F43.10 - Post-traumatic stress disorder, unspecified, I15.0 - Renovascular hypertension, N18.31 - Chronic kidney disease, stage 3a Medications: New docusate sodium 100 mg PO .QD 30 days 30 caps 3RF gabapentin 300 mg PO BEDTIME 30 days 30 caps 0RF aspirin (Adult Low Dose Aspirin) 81 mg PO DAILY 30 days 30 tabs 3RF Changed From insulin lispro 12-30 subcutaneous injection 3 times a day before meals. Sliding scale 100-1 49 12 untis. Call if less thn 70, 150-99 15 unit, 200-249 18 untis, 250-299 21 units, 300- 349 24 units, 350-399 27 untis. Call if greater then 400 1 sliding scale dose subcut USEASDIRECTD 15 mL 0RF To insulin lispro Lispro sliding scale (100-149 = 12 units, 150-199 = 15 units, 200-249 = 18 units, 250-299 = 21 units, 300-449 = 24 units, 350-399 = 27 units, 400-449 = 30 units, call if blood glucose is less than 70 or greater than 449 1 sliding scale dose subcut USEASDIRECTD 15 mL 0RF Refilled lisinopril 10 mg PO DAILY 30 days 30 tabs 3RF risperidone (Risperdal) 2 mg PO BID 30 days 60 tabs 3RF clopidogrel stent placed 09/05/21 will need for one year or longer 75 mg PO DAILY 30 days 30 tabs 3RF Discontinued prednisone Discontinued Reason: Patient Completed Course 40 mg (2 x 20 mg) PO DAILY 5 days 10 tabs 0RF insulin NPH and regular human 100 unit/mL (70-30) 45 units SQ QAM 50 units SQ QPM Discontinued Reason: Doctor's Order 1 sliding scale dose subcut USEASDIRECTD 30 days 30 mL 4RF E11.65 - Type 2 diabetes mellitus with hyperglycemia Coding Level of Care Code Est Pt Level 4 (82244) Complex EM visit Add On G2211 Diagnoses Renovascular hypertension I15.0 Hypertension type: renovascular hypertension Diabetes mellitus with multiple complications E11.8 Paranoid schizophrenia F20.0 Schizophrenia type: paranoid schizophrenia Bipolar 1 disorder F31.9
[2023-09-29 13:42] VITALS: BP 130/70; PULSE 97; RESP 16; TEMP 36.4; O2SAT 98
== END 2023-09-29 14:24 | disposition home or self-care (01) ==
PROVIDERS: Visit Provider Nurse Practitioner Family
DX: I15.0 Renovascular hypertension (principal); E11.8 Type 2 diabetes mellitus with unspecified complications; F20.0 Paranoid schizophrenia; F31.9 Bipolar disorder, unspecified
CPT/HCPCS: 99214; G2211